=== PATIENT | male | born 1990 | race African-American/Black ===

== ENCOUNTER 2021-07-31 01:50 | Inpatient (IN) | payer OTHER ==
[2021-07-31] MEDS ORDERED: KETOROLAC 15 MG/ML 1 ML VIAL IVP STA (02:29)
[2021-07-31] MEDS ORDERED: DEXAMETHASONE SOD PHOSPHATE 10 MG/ML 1 ML VIAL IV STA (02:29)
[2021-07-31] MEDS ORDERED: ACETAMINOPHEN TAB 500 MG TAB PO STA (02:29)
[2021-07-31] MEDS ORDERED: SODIUM CHLORIDE 0.9% 1,000 ML IV STA ×2 (02:29)
[2021-07-31] MEDS ORDERED: ALBUTEROL HFA INHALER INHALATION STA (02:29)
--- NOTE | 2021-07-31 02:29 | ED ---
Recheck HPI - General Chief Complaint: Upper Respiratory Infection Stated Complaint: COVID +, SOB Time Seen by Provider: 07/31/21 02:24 Source: patient, RN notes reviewed, old records reviewed Mode of arrival: wheelchair Limitations: no limitations - History of Present Illness Initial Comments: This is a 31-year-old male for evaluation. Patient resents today for evaluation regarding coronavirus. Patient has known coronavirus currently. Patient was diagnosed with coronavirus as of recent as well as his . Patient is presenting for antibody treatment. Patient does admit to some significant weakness but denies any real shortness of breath or chest pain. Patient does have sick contacts with coronavirus. -: days(s) Returns Today for: persistent/worsening pain related to initial visit, other (worsening SOB) Symptoms Since Prior Visit: no new symptoms (Severe shortness of breath), worsening pain, fever Associated Symptoms: fever, chills, shortness of breath, malaise Treatments Prior to Arrival: other (Patient not doing any treatments) - Related Data Home Medications Medication Instructions Recorded Confirmed Ascorbic Acid [Vitamin C] 1,000 mg PO DAILY 07/31/21 07/31/21 Aspirin EC [Ecotrin] 325 mg PO DAILY 07/31/21 07/31/21 Cholecalciferol (Vitamin D3) 75 mcg PO DAILY 07/31/21 07/31/21 [Vitamin D3 (3000 Iu)] Hydroxychloroquine Sulfate 200 mg PO DIRECTED 07/31/21 07/31/21 [Plaquenil] Ibuprofen [Motrin Ib] 400 mg PO Q8H PRN 07/31/21 07/31/21 Naproxen Sodium [Aleve] 220 mg PO Q12HR PRN 07/31/21 07/31/21 Zinc 50 mg PO DAILY 07/31/21 07/31/21 Allergies Allergy/AdvReac Type Severity Reaction Status Date / Time No Known Allergies Allergy Verified 07/31/21 09:16 Review of Systems ROS Statement: Those systems with pertinent positive or pertinent negative responses have been documented in the HPI. ROS Other: All systems not noted in ROS Statement are negative. Past Medical History Past Medical History: No Reported History History of Any Multi-Drug Resistant Organisms: None Reported Past Surgical History: No Surgical Hx Reported Past Psychological History: No Psychological Hx Reported Smoking Status: Never smoker Past Alcohol Use History: None Reported Past Drug Use History: None Reported - Past Family History Mother Family Medical History: Hypertension Father Family Medical History: Hypertension General Exam Limitations: no limitations General appearance: alert, in no apparent distress, anxious Head exam: Present: atraumatic, normocephalic, normal inspection Eye exam: Present: normal appearance, PERRL, EOMI. Absent: scleral icterus, c onjunctival injection, periorbital swelling ENT exam: Present: normal exam, mucous membranes moist Neck exam: Present: normal inspection. Absent: tenderness, meningismus, lymphadenopathy Respiratory exam: Present: normal lung sounds bilaterally, respiratory distress, wheezes, accessory muscle use, decreased breath sounds, prolonged expiratory. Absent: rales, rhonchi, stridor Cardiovascular Exam: Present: normal rhythm, tachycardia, normal heart sounds. Absent: systolic murmur, diastolic murmur, rubs, gallop, clicks GI/Abdominal exam: Present: soft, normal bowel sounds. Absent: distended, tenderness, guarding, rebound, rigid Extremities exam: Present: normal inspection, full ROM, normal capillary refill. Absent: tenderness, pedal edema, joint swelling, calf tenderness Back exam: Present: normal inspection Neurological exam: Present: alert, oriented X3, CN II-XII intact Psychiatric exam: Present: normal affect, normal mood Skin exam: Present: warm, dry, intact, normal color. Absent: rash Course Vital Signs 07/31/21 07/31/21 07/31/21 02:04 04:19 04:30 Temperature 99.1 F Pulse Rate 109 H Respiratory 20 Rate Blood Pressure 159/92 O2 Sat by Pulse 84 L 89 L 95 Oximetry 07/31/21 07/31/21 07/31/21 07:00 08:11 10:10 Temperature 98.0 F 97.6 F Pulse Rate 92 91 Respiratory 28 H 23 20 Rate Blood Pressure 150/113 143/105 O2 Sat by Pulse 95 98 Oximetry 07/31/21 07/31/21 07/31/21 12:22 14:00 15:37 Temperature 97.9 F 97.7 F Pulse Rate 97 97 98 Respiratory 22 23 18 Rate Blood Pressure 149/102 154/103 158/98 O2 Sat by Pulse 98 98 Oximetry - Reevaluation(s) Reevaluation #1: Medical record is reviewed Patient is in no significant respiratory distress despite low oxygen levels Patient informed results and questions are answered Medical Decision Making - Medical Decision Making 31 male to the emergency department for evaluation, patient has positive coronavirus. Patient will be admitted for hypoxia with coronavirus. - Lab Data Result diagrams: 08/26/21 04:42 08/26/21 04:42 Lab Results 07/31/21 07/31/21 07/31/21 Range/Units 02:49 02:49 02:49 WBC 6.9 (3.8-10.6) k/uL RBC 5.21 (4.30-5.90) m/uL Hgb 13.9 (13.0-17.5) gm/dL Hct 42.3 (39.0-53.0) % MCV 81.2 (80.0-100.0) fL MCH 26.7 (25.0-35.0) pg MCHC 32.9 (31.0-37.0) g/dL RDW 13.5 (11.5-15.5) % Plt Count 248 (150-450) k/uL MPV 9.9 Neutrophils % 81 % Lymphocytes % 15 % Monocytes % 2 % Eosinophils % 0 % Basophils % 0 % Neutrophils # 5.6 (1.3-7.7) k/uL Lymphocytes # 1.0 (1.0-4.8) k/uL Monocytes # 0.1 (0-1.0) k/uL Eosinophils # 0.0 (0-0.7) k/uL Basophils # 0.0 (0-0.2) k/uL PT 10.4 (9.0-12.0) sec INR 1.0 (<1.2) APTT 28.6 (22.0-30.0) sec Sodium 130 L (137-145) mmol/L Potassium 3.8 (3.5-5.1) mmol/L Chloride 95 L (98-107) mmol/L Carbon Dioxide 24 (22-30) mmol/L Anion Gap 11 mmol/L BUN 20 (9-20) mg/dL Creatinine 1.15 (0.66-1.25) mg/dL Est GFR (CKD-EPI)AfAm >90 (>60 ml/min/1.73 sqM) Est GFR (CKD-EPI)NonAf 86 (>60 ml/min/1.73 sqM) Glucose 103 H (74-99) mg/dL Plasma Lactic Acid Tonio (0.7-2.0) mmol/L Calcium 8.8 (8.4-10.2) mg/dL Magnesium 2.0 (1.6-2.3) mg/dL Total Bilirubin 1.0 (0.2-1.3) mg/dL AST 106 H (17-59) U/L ALT 106 H (4-49) U/L Alkaline Phosphatase 80 (38-126) U/L Lactate Dehydrogenase 2600 H (313-618) U/L C-Reactive Protein 20.3 H (<1.0) mg/dL Total Protein 6.7 (6.3-8.2) g/dL Albumin 3.9 (3.5-5.0) g/dL Procalcitonin (0.02-0.09) ng/mL 07/31/21 07/31/21 Range/Units 02:49 02:49 WBC (3.8-10.6) k/uL RBC (4.30-5.90) m/uL Hgb (13.0-17.5) gm/dL Hct (39.0-53.0) % MCV (80.0-100.0) fL MCH (25.0-35.0) pg MCHC (31.0-37.0) g/dL RDW (11.5-15.5) % Plt Count (150-450) k/uL MPV Neutrophils % % Lymphocytes % % Monocytes % % Eosinophils % % Basophils % % Neutrophils # (1.3-7.7) k/uL Lymphocytes # (1.0-4.8) k/uL Monocytes # (0-1.0) k/uL Eosinophils # (0-0.7) k/uL Basophils # (0-0.2) k/uL PT (9.0-12.0) sec INR (<1.2) APTT (22.0-30.0) sec Sodium (137-145) mmol/L Potassium (3.5-5.1) mmol/L Chloride (98-107) mmol/L Carbon Dioxide (22-30) mmol/L Anion Gap mmol/L BUN (9-20) mg/dL Creatinine (0.66-1.25) mg/dL Est GFR (CKD-EPI)AfAm (>60 ml/min/1.73 sqM) Est GFR (CKD-EPI)NonAf (>60 ml/min/1.73 sqM) Glucose (74-99) mg/dL Plasma Lactic Acid Tonio 0.8 (0.7-2.0) mmol/L Calcium (8.4-10.2) mg/dL Magnesium (1.6-2.3) mg/dL Total Bilirubin (0.2-1.3) mg/dL AST (17-59) U/L ALT (4-49) U/L Alkaline Phosphatase (38-126) U/L Lactate Dehydrogenase (313-618) U/L C-Reactive Protein (<1.0) mg/dL Total Protein (6.3-8.2) g/dL Albumin (3.5-5.0) g/dL Procalcitonin 0.39 H (0.02-0.09) ng/mL - EKG Data -: EKG Interpreted by Me (EKG is sinus tachycardia 104 [place] 152 QRS 90 QTC 460) - Radiology Data Radiology results: report reviewed (Chest x-ray does show evidence of coronavirus pneumonia), image reviewed Critical Care Time Critical Care Time: Yes Total Critical Care Time: 31 Disposition Clinical Impression: Coronavirus infection, Pneumonia due to COVID-19 virus, Hypoxia, BMI 45.0-49.9, adult Disposition: ADMITTED IP TO THIS HOSP Condition: Serious Is patient prescribed a controlled substance at d/c from ED?: No
--- NOTE | 2021-07-31 03:01 | XR ---
EXAMINATION TYPE: XR chest 1V portable DATE OF EXAM: 07/31/2021 COMPARISON: NONE HISTORY: Pneumonia TECHNIQUE: Single view FINDINGS: There is patchy bilateral pulmonary airspace infiltrates. Heart appears enlarged. There is no pleural effusion. Bony thorax is intact. IMPRESSION: Patchy bilateral airspace pneumonia.
[2021-07-31 03:18] LABS: Basophils % (A) 0 %; Eosinophils % (A) 0 %; HCT 42.3 % (39.0-53.0); HGB 13.9 gm/dL (13.0-17.5); Lymphocytes % (A) 15 %; MCH 26.7 pg (25.0-35.0); MCHC 32.9 g/dL (31.0-37.0); MCV 81.2 fL (80.0-100.0); Mean Platelet Volume 9.9; Monocytes # (A) 0.1 k/uL (0-1.0); Monocytes % (A) 2 %; Neutrophils # (A) 5.6 k/uL (1.3-7.7); Neutrophils % (A) 81 %; Platelet Count 248 k/uL (150-450); RBC 5.21 m/uL (4.30-5.90); RDW 13.5 % (11.5-15.5); WBC 6.9 k/uL (3.8-10.6)
[2021-07-31 03:24] LABS: Partial Thromboplastin Time 28.6 sec (22.0-30.0); Prothrombin Time 10.4 sec (9.0-12.0)
[2021-07-31 03:26] LABS: ALT 106 U/L (4-49); AST 106 U/L (17-59); African American GFR (CKD) >90 (>60 ml/min/1.73 sqM); Albumin 3.9 g/dL (3.5-5.0); Alkaline Phosphatase 80 U/L (38-126); Anion Gap 11 mmol/L; Blood Urea Nitrogen 20 mg/dL (9-20); Calcium 8.8 mg/dL (8.4-10.2); Carbon Dioxide 24 mmol/L (22-30); Chloride 95 mmol/L (98-107); Glucose 103 mg/dL (74-99); Non-African American GFR(CKD) 86 (>60 ml/min/1.73 sqM); Potassium 3.8 mmol/L (3.5-5.1); Sodium 130 mmol/L (137-145); Total Protein 6.7 g/dL (6.3-8.2)
[2021-07-31 03:51] LABS: C Reactive Protein 20.3 mg/dL (<1.0); LDH 2600 U/L (313-618)
[2021-07-31] MEDS ORDERED: PNEUMONIA PROTOCOL UTILIZED 1 EACH MISC PO PRN (04:17)
[2021-07-31] MEDS: ENOXAPARIN 40 MG/0.4 ML SYRINGE SQ SCH (08:19)
--- NOTE | 2021-07-31 09:09 | P.HPIM ---
History of Present Illness This is a pleasant 31 years old -[place] man with no significant past medical history presents with dyspnea which started yesterday associated with fever and coughing. Patient tested positive for covid earlier on Thursday after he felt with fever and cough on Thursday but at that time he was not dyspneic. He denies chest pain or abdominal pain but he has diarrhea on and off. No vomiting. He is saturating 89% on 6 L oxygen via nasal cannula, afebrile. Tachypneic with a breathing rate at 23. CBC, is unremarkable. INR is normal at 1.0. Sodium is 1:30, creatinine normal at 1.1, glucose 103. AST is mildly elevated 106 and ALT mildly elevated 106. Elevated lactate dehydrogenase 2600 and C-reactive protein 20.3. Cholelithiasis positive EKG shows sinus tachycardia and [address]-T changes Chest x-ray showing bilateral infiltrates Review of Systems CONSTITUTIONAL: No fever, no malaise, no fatigue. HEENT: No recent visual problems or hearing problems. Denied any sore throat. CARDIOVASCULAR: No orthopnea, PND, no palpitations, no syncope. PULMONARY: No chest wall tenderness, no hemoptysis. GASTROINTESTINAL: No diarrhea, no nausea, no vomiting, no abdominal pain. Normoactive bowel sounds. NEUROLOGICAL: No headaches, no weakness, no numbness. HEMATOLOGICAL: Denies any bleeding or petechiae. GENITOURINARY: Denies any burning micturition, frequency, or urgency. MUSCULOSKELETAL/RHEUMATOLOGICAL: Denies any joint pain, swelling, or any muscle pain. ENDOCRINE: Denies any polyuria or polydipsia. Past Medical History Past Medical History: No Reported History History of Any Multi-Drug Resistant Organisms: None Reported Past Surgical History: No Surgical Hx Reported Past Psychological History: No Psychological Hx Reported Smoking Status: Never smoker Past Alcohol Use History: None Reported Past Drug Use History: None Reported Medications and Allergies Allergies Allergy/AdvReac Type Severity Reaction Status Date / Time No Known Allergies Allergy Verified 07/31/21 02:10 Physical Exam Vitals: Vital Signs Temp Pulse Resp BP Pulse Ox 07/31/21 08:11 97.6 F 91 23 143/105 98 07/31/21 07:00 98.0 F 92 28 H 150/113 95 07/31/21 04:30 95 07/31/21 04:19 89 L 07/31/21 02:04 99.1 F 109 H 20 159/92 84 L Intake and Output 07/30/21 07/31/21 07/31/21 22:59 06:59 14:59 Other: Weight 131.542 kg GENERAL: The patient is alert and oriented x3, not in any acute distress. Well developed, well nourished. HEENT: Pupils are round and equally reacting to light. EOMI. No scleral icterus. No conjunctival pallor. Normocephalic, atraumatic. No pharyngeal erythema. No thyromegaly. CARDIOVASCULAR: S1 and S2 present. No murmurs, rubs, or gallops. -PULMONARY: Chest is clear to auscultation, no wheezing. Bilateral crepitation mild diabetic ABDOMEN: Soft, nontender, nondistended, normoactive bowel sounds. No palpable organomegaly. MUSCULOSKELETAL: No joint swelling or deformity. EXTREMITIES: No cyanosis, clubbing, or pedal edema. NEUROLOGICAL: Gross neurological examination did not reveal any focal deficits. SKIN: No rashes. No petechiae Results CBC & Chem 7: 07/31/21 02:49 07/31/21 02:49 Labs: Abnormal Lab Results - Last 24 Hours (Table) 07/31/21 Range/Units 02:49 Sodium 130 L (137-145) mmol/L Chloride 95 L (98-107) mmol/L Glucose 103 H (74-99) mg/dL AST 106 H (17-59) U/L ALT 106 H (4-49) U/L Lactate Dehydrogenase 2600 H (313-618) U/L C-Reactive Protein 20.3 H (<1.0) mg/dL Assessment and Plan Assessment: Acute bilateral Covid pneumonia Acute hypoxic respiratory failure Elevated inflammatory markers Obesity with BMI of 49.8 Plan: This is a pleasant 31 years old male who presents with bilateral Covid pneumonia and hypoxia. Continue with oxygen as needed Continue With dexamethasone and Lovenox. Continue with vitamin C, vitamin D and zinc We will retest Sonja give from the severe since his symptoms started this week and he was started having dyspnea when day earlier. Also his liver enzymes and only mildly elevated and creatinine is normal undergoing to monitor his liver fu nction tests and creatinine Pulmonary consult Labs and medication were reviewed.. Continue same treatment. Continue with symptomatic treatment. Resume home medication. Monitor lytes and vitals. DVT and GI prophylaxis. Further recommendations depends on the clinical course of the patient DVT prophylaxis: Subcutaneous Lovenox GI Prophylaxis: Pepcid Prognosis is guarded
[2021-07-31] MEDS ORDERED: REMDESIVIR 200 MG in SODIUM CHLORIDE 0.9% 250 ML IVPB ONE (10:00)
--- NOTE | 2021-07-31 11:50 | P.CNPUL ---
History of Present Illness Consult date: 07/31/21 Requesting physician: Esa Villaseñor Reason for consult: dyspnea, hypoxemia, abnormal CXR/CT Chief complaint: Shortness of breath, chest tightness History of present illness: This is a very pleasant 31-year-old -[place] gentleman with no significant past medical history. He does have obesity with a BMI of 50. He developed symptoms of shortness of breath chest tightness and nonproductive cough back on July 22. He tested positive for COVID-19 in the outpatient setting. His symptoms had progressed. Of note, he had taken a few doses of hydroxychloroquine and that a friend had available. His is positive for COVID-19 as well. He is unvaccinated. He presented here to the emergency room at approximately 2:00 this morning with worsening shortness of breath chest tightness and wheezing. He was having issues with fever and chills. No nausea vomiting or diarrhea. Chest x-ray shows bilateral patchy infiltrates. His initial oxygen saturation was 84% and he was placed on 6 L high flow nasal cannula. He was having ongoing issues with hypoxemia and is now on 15 L non rebreather mask, current O2 saturation 98%. He is afebrile. White count 6.9. Hemoglobin 13.9. Lymphocytes 1.0. Sodium 130. Potassium 3.8. Bicarb 24. Creatinine 1.15. AST 106. ALT 106. LDH 2600. C-reactive protein 20.3. He is seen today in the emergency room. He is awake and alert in no acute distress. He is dyspneic with conversation. Dyspneic with minimal exertion. He's been initiated on Decadron 6 mg IV daily, Lovenox 40 mg subcutaneous daily, vitamins C, D, zinc. He is outside the window and his oxygen requirements are too high for Remdesivir. Review of Systems REVIEW OF SYSTEMS: CONSTITUTIONAL: Denies any recent significant weight loss or weight gain. EYES: Denies change in vision. EARS, NOSE, MOUTH, THROAT: Denies headaches, denies sore throat. CARDIOVASCULAR: Denies chest pain, palpitations or syncopal episodes. RESPIRATORY: Positive for shortness of breath, as tightness, cough, congestion no hemoptysis. GASTROINTESTINAL: Decreased appetite, denies abdominal pain GENITOURINARY: Denies hematuria, denies infections. MUSKULOSKELETAL: Denies pain, denies swelling. INTEGUMENTARY: Denies rash, denies eczema. NEUROLOGICAL: Denies recent memory loss, no recent seizure activity. PSYCHIATRIC: Denies anxiety, denies depression. HEMATOLOGIC/LYMPHATIC: Denies anemia, denies enlarged lymph nodes. Past Medical History Past Medical History: No Reported History History of Any Multi-Drug Resistant Organisms: None Reported Past Surgical History: No Surgical Hx Reported Past Psychological History: No Psychological Hx Reported Smoking Status: Never smoker Past Alcohol Use History: None Reported Past Drug Use History: None Reported Medications and Allergies Home Medications Medication Instructions Recorded Confirmed Type Ascorbic Acid [Vitamin C] 1,000 mg PO DAILY 07/31/21 07/31/21 History Aspirin EC [Ecotrin] 325 mg PO DAILY 07/31/21 07/31/21 History Cholecalciferol (Vitamin D3) 75 mcg PO DAILY 07/31/21 07/31/21 History [Vitamin D3 (3000 Iu)] Hydroxychloroquine Sulfate 200 mg PO DIRECTED 07/31/21 07/31/21 History [Plaquenil] Ibuprofen [Motrin Ib] 400 mg PO Q8H PRN 07/31/21 07/31/21 History Naproxen Sodium [Aleve] 220 mg PO Q12HR PRN 07/31/21 07/31/21 History Zinc 50 mg PO DAILY 07/31/21 07/31/21 History Allergies Allergy/AdvReac Type Severity Reaction Status Date / Time No Known Allergies Allergy Verified 07/31/21 09:16 Physical Exam Vitals: Vital Signs Temp Pulse Resp BP Pulse Ox 07/31/21 10:10 20 07/31/21 08:11 97.6 F 91 23 143/105 98 07/31/21 07:00 98.0 F 92 28 H 150/113 95 07/31/21 04:30 95 07/31/21 04:19 89 L 07/31/21 02:04 99.1 F 109 H 20 159/92 84 L Intake and Output 07/30/21 07/31/21 07/31/21 22:59 06:59 14:59 Other: Weight 131.542 kg GENERAL EXAM: Alert, very pleasant 31-year-old -[place] male, obese, on 15 L nonrebreather mask, fairly comfortable in no apparent distress. HEAD: Normocephalic. EYES: Normal reaction of pupils, equal size. NOSE: Clear with pink turbinates. THROAT: No erythema or exudates. NECK: No masses, no JVD. CHEST: No chest wall deformity. LUNGS: Equal air entry with coarse crackles in the bilateral bases. CVS: S1 and S2 normal with no audible murmur, regular rhythm. ABDOMEN: No hepatosplenomegaly, normal bowel sounds, no guarding or rigidity. SPINE: No scoliosis or deformity SKIN: No rashes CENTRAL NERVOUS SYSTEM: No focal deficits, tone is normal in all 4 extremities. EXTREMITIES: There is no peripheral edema. No clubbing, no cyanosis. Peripheral pulses are intact. Results - Laboratory Findings CBC and BMP: 07/31/21 02:49 07/31/21 02:49 PT/INR, D-dimer PT 10.4 sec (9.0-12.0) 07/31/21 02:49 INR 1.0 (<1.2) 07/31/21 02:49 Abnormal lab findings: Abnormal Labs 07/31/21 07/31/21 02:49 09:50 Sodium 130 L Chloride 95 L Glucose 103 H AST 106 H ALT 106 H Lactate Dehydrogenase 2600 H C-Reactive Protein 20.3 H Coronavirus (PCR) Detected A - Diagnostic Findings Chest x-ray: image reviewed Assessment and Plan Assessment: 1 Acute hypoxemic respiratory failure secondary to acute COVID-19 pneumonia. Onset of symptoms 8 days ago. He is unvaccinated. He did take a few doses of a friend's hydroxychloroquine. Currently requiring nonrebreather mask. He is outside the window and too high of oxygen requirements for Remdesivir. We will initiate Baricitinib, Lovenox, Decadron, vitamin supplements. 2 Elevated inflammatory markers secondary to above 3 Mild transaminitis secondary to above 4 Obesity with a BMI of 50 Plan: The patient was seen and evaluated by Dr. Ojeda Chest x-ray and labs reviewed D-dimer pending. If elevated may need CTA and/or Dopplers of the lower extremity Pro calcitonin pending May qualify for Baricitinib Continue Lovenox, Decadron, vitamin supplements Titrate the FiO2 as tolerated Prone as possible while in bed Follow-up chest x-ray and labs in the a.m. Prognosis is guarded at this point We will continue to follow and make further recommendations based on his clinical status I, the cosigning physician, performed a history & physical examination of the patient. Lungs sounds with coarse crackles in the bilateral bases. Maintaining O2 saturations in the 90s on a nonrebreather mask. I discussed the assessment and plan of care with my nurse practitioner, Anila Mathis. I attest to the above consultation as dictated by her. Time with Patient: Greater than 30
[2021-07-31] MEDS: DEXAMETHASONE SOD PHOSPHATE 10 MG/ML 1 ML VIAL IV SCH (12:18)
[2021-07-31] MEDS: FAMOTIDINE 20 MG TAB PO SCH (12:18)
[2021-07-31] MEDS: CHOLECALCIFEROL 25 MCG (1000 IU) TABLET PO SCH (12:18)
[2021-07-31] MEDS: ZINC SULFATE 220 MG CAP PO SCH (12:18)
[2021-07-31] MEDS: ASCORBIC ACID 500 MG TAB PO SCH (12:18)
[2021-07-31] MEDS: SODIUM CHLORIDE 0.9% 1,000 ML IV SCH ×2 (12:19→16:37)
[2021-07-31] MEDS: BARICITINIB 2 MG TABLET PO SCH (12:29)
[2021-07-31] MEDS: amLODIPine 5 MG TAB PO SCH (17:42)
[2021-07-31] MEDS: ALBUTEROL HFA INHALER INHALATION PRN (19:51)
[2021-07-31] MEDS ORDERED: hydrALAZINE HCL 25 MG TAB PO STA (22:00)
[2021-07-31] MEDS: ALPRAZolam 0.5 MG TAB PO PRN (23:48)
[2021-08-01] MEDS: SODIUM CHLORIDE 0.9% 1,000 ML IV SCH ×2 (06:47→07:55)
[2021-08-01] MEDS: DEXAMETHASONE SOD PHOSPHATE 10 MG/ML 1 ML VIAL IV SCH (07:56)
[2021-08-01] MEDS: FAMOTIDINE 20 MG TAB PO SCH (07:56)
[2021-08-01] MEDS: amLODIPine 5 MG TAB PO SCH (07:56)
[2021-08-01] MEDS: ENOXAPARIN 40 MG/0.4 ML SYRINGE SQ SCH (07:56)
[2021-08-01] MEDS: BARICITINIB 2 MG TABLET PO SCH (07:56)
[2021-08-01] MEDS: ZINC SULFATE 220 MG CAP PO SCH (07:56)
[2021-08-01] MEDS: CHOLECALCIFEROL 25 MCG (1000 IU) TABLET PO SCH (07:57)
[2021-08-01] MEDS: ASCORBIC ACID 500 MG TAB PO SCH (07:57)
[2021-08-01 08:13] LABS: ALT 76 U/L (4-49); AST 62 U/L (17-59); African American GFR (CKD) >90 (>60 ml/min/1.73 sqM); Albumin 3.5 g/dL (3.5-5.0); Albumin/Globulin Ratio 1.3; Alkaline Phosphatase 70 U/L (38-126); Anion Gap 8 mmol/L; Blood Urea Nitrogen 32 mg/dL (9-20); Calcium 8.9 mg/dL (8.4-10.2); Carbon Dioxide 26 mmol/L (22-30); Chloride 102 mmol/L (98-107); Globulin 2.8 g/dL; Glucose 105 mg/dL (74-99); Non-African American GFR(CKD) 80 (>60 ml/min/1.73 sqM); Potassium 4.5 mmol/L (3.5-5.1); Sodium 136 mmol/L (137-145); Total Bilirubin 0.7 mg/dL (0.2-1.3); Total Protein 6.3 g/dL (6.3-8.2)
[2021-08-01 08:18] LABS: LDH 2437 U/L (313-618)
[2021-08-01 08:46] LABS: C Reactive Protein 16.7 mg/dL (<1.0)
--- NOTE | 2021-08-01 09:07 | XR ---
EXAMINATION TYPE: XR chest 1V DATE OF EXAM: 08/01/2021 COMPARISON: 07/31/2021 HISTORY: 31 year-old male shortness of breath TECHNIQUE: Single frontal view of the chest is obtained. FINDINGS: Markedly diminished lung volumes. Heart size likely accentuated due to the low lung volumes. Diffuse interstitial density and patchy bibasilar airspace opacity. Aeration shows improvement from prior exa m. IMPRESSION: Limitations due to severe hypoventilatory changes. There does seem to be some improvement in aeration but with continued diffuse interstitial opacity and patchy bibasilar airspace disease. Improving dennis ateral pneumonia versus improving pulmonary edema are considerations.
[2021-08-01 11:14] LABS: Basophils # (A) 0.02 X 10*3/uL (0.00-0.10); Basophils % (A) 0.2 %; Eosinophils # (A) 0 X 10*3/uL (0.04-0.35); Eosinophils % (A) 0 %; HCT 41.7 % (39.6-50.0); Lymphocytes # (A) 1.33 X 10*3/uL (0.90-5.00); Lymphocytes % (A) 12.3 %; MCH 25.9 pg (27.0-32.0); MCHC 31.2 g/dL (32.0-37.0); MCV 83.2 fL (80.0-97.0); Mean Platelet Volume 11.9 fL (9.5-12.2); Monocytes # (A) 0.44 X 10*3/uL (0.20-1.00); Monocytes % (A) 4.1 %; Neutrophils % (A) 80.4 %; Platelet Count 331 X 10*3/uL (140-440); RBC 5.01 X 10*6/uL (4.40-5.60); RDW 13.6 % (11.5-14.5); WBC 10.81 X 10*3/uL (4.50-10.00)
--- NOTE | 2021-08-01 11:59 | P.PN ---
Subjective This is a pleasant 31 years old -[place] man with no significant past medical history presents with dyspnea which started yesterday associated with fever and coughing. Patient tested positive for covid earlier on Thursday after he felt with fever and cough on Thursday but at that time he was not dyspneic. He denies chest pain or abdominal pain but he has diarrhea on and off. No vomiting. He is saturating 89% on 6 L oxygen via nasal cannula, afebrile. Tachypneic with a breathing rate at 23. CBC, is unremarkable. INR is normal at 1.0. Sodium is 1:30, creatinine normal at 1.1, glucose 103. AST is mildly elevated 106 and ALT mildly elevated 106. Elevated lactate dehydrogenase 2600 and C-reactive protein 20.3. Cholelithiasis positive EKG shows sinus tachycardia and [address]-T changes Chest x-ray showing bilateral infiltrates 08/01/2021 Patient sitting at bedside using 50 L of oxygen via nonrebreather. Reports slight improvement in his breathing and his chest x-ray showing somewhat improvement in that area should on both sides. He has low-grade fever today at 200. Blood pressure is stable. D-dimer is 1.87. BMP is unremarkable, liver enzymes slightly trending down. LDH slightly down at 2437 and slightly decreased and C-reactive protein 16.7. CBC and pro-calcitonin are pending Sputum and blood culture are still pending He remains on multiple vitamins, Baricitinib, dexamethasone and normal saline at 75 mL/h. Also he is on Lovenox. Norvasc is added for blood pressure control also we will add metoprolol Objective - Vital Signs Vital signs: Vital Signs Temp 100 F H 08/01/21 09:34 Pulse 105 H 08/01/21 09:34 Resp 18 08/01/21 09:34 BP 146/88 08/01/21 09:34 Pulse Ox 88 L 08/01/21 09:34 Intake & Output 07/31/21 08/01/21 08/01/21 18:59 06:59 18:59 Intake Total 800 600 Balance 800 600 Weight 131.542 kg Intake: Intake, IV Titration 800 600 Amount Sodium Chloride 0.9% 1, 800 600 000 ml @ 75 mls/hr IV . [id number] [facility] Rx#:[id number] Other: Voiding Method Urinal # Voids 3 - Exam GENERAL: The patient is alert and oriented x3, not in any acute distress. Well developed, well nourished. HEENT: Pupils are round and equally reacting to light. EOMI. No scleral icterus. No conjunctival pallor. Normocephalic, atraumatic. No pharyngeal erythema. No thyromegaly. CARDIOVASCULAR: S1 and S2 present. No murmurs, rubs, or gallops. -PULMONARY: Chest is clear to auscultation, no wheezing bilateral crepitation, t achypnea ABDOMEN: Soft, nontender, nondistended, normoactive bowel sounds. No palpable organomegaly. MUSCULOSKELETAL: No joint swelling or deformity. EXTREMITIES: No cyanosis, clubbing, or pedal edema. NEUROLOGICAL: Gross neurological examination did not reveal any focal deficits. SKIN: No rashes. No petechiae - Labs CBC & Chem 7: 07/31/21 02:49 08/01/21 07:19 Labs: Abnormal Lab Results - Last 24 Hours (Table) 08/01/21 08/01/21 Range/Units 07:19 07:19 D-Dimer 1.87 H (<0.60) mg/L FEU Sodium 136 L (137-145) mmol/L BUN 32 H (9-20) mg/dL Glucose 105 H (74-99) mg/dL AST 62 H (17-59) U/L ALT 76 H (4-49) U/L Lactate Dehydrogenase 2437 H (313-618) U/L C-Reactive Protein 16.7 H (<1.0) mg/dL Microbiology - Last 24 Hours (Table) 07/31/21 19:59 Sputum Culture - Preliminary Sputum 07/31/21 07:01 Gram Stain - Preliminary Sputum Sputum Culture - Preliminary 07/31/21 02:45 Blood Culture - Preliminary Blood No Growth after 24 hours 07/31/21 03:00 Blood Culture - Preliminary Blood No Growth after 24 hours Assessment and Plan Assessment: Acute bilateral Covid pneumonia Acute hypoxic respiratory failure Elevated inflammatory markers Obesity with BMI of 49.8 Plan: This is a pleasant 31 years old male who presents with bilateral Covid pneumonia and hypoxia. Continue with oxygen as needed Continue With dexamethasone and Lovenox. Continue with vitamin C, vitamin D and zinc c/w baricitinib Pulmonary consult Labs and medication were reviewed.. Continue same treatment. Continue with symptomatic treatment. Resume home medication. Monitor lytes and vitals. DVT and GI prophylaxis. Further recommendations depends on the clinical course of the patient DVT prophylaxis: Subcutaneous Lovenox GI Prophylaxis: Pepcid Prognosis is guarded
[2021-08-01] MEDS: METOPROLOL TARTRATE 25 MG TAB PO SCH ×2 (12:01→19:48)
[2021-08-01] MEDS: ACETAMINOPHEN TAB 325 MG TAB PO PRN ×2 (12:01→20:15)
[2021-08-01] MEDS: ALBUTEROL HFA INHALER INHALATION PRN (15:11)
--- NOTE | 2021-08-01 15:49 | P.PN ---
Subjective Progress Note Date: 08/01/21 31-year-old -[place] male patient with COVID-19 related pneumonia. The patient came in he was quite hypoxic. He was placed on high flow oxygen at 15 L along with 100% nonrebreather facemask. Earlier this afternoon, the patient's condition decompensated. He became quite hypoxic. He is currently on BiPAP at a pressure of 14/7 with an FiO2 of 100%. He was able to bring his pulse ox of 97%. His respirations 22 L and he continues to be tachypneic at the rate of 35. His tidal volumes related is above 700. Chest x-ray shows a lordotic view, there is still bilateral pulmonary infiltrates. The inflammatory markers include an LDH level of 2437, CRP level of 16.7, pro-calcitonin level of 0.5, d- dimer level of 1.87. The patient remains on Decadron 6 mg IV every 24 hours, the patient remains on Baricitinib that was started yesterday and he is also on Lovenox 40 mg subcu on a daily basis and addition to vitamin C, vitamin D including. He is sitting up on a recliner he is able to tolerate a full face BiPAP mask. No significant anxiety. He is able to communicate. Objective - Vital Signs Vital signs: Vital Signs Temp 98.7 F 08/01/21 14:30 Pulse 90 08/01/21 14:30 Resp 18 08/01/21 14:30 BP 135/78 08/01/21 14:30 Pulse Ox 88 L 08/01/21 14:30 Intake & Output 07/31/21 08/01/21 08/01/21 18:59 06:59 18:59 Intake Total 800 600 Balance 800 600 Weight 131.542 kg Intake: Intake, IV Titration 800 600 Amount Sodium Chloride 0.9% 1, 800 600 000 ml @ 75 mls/hr IV . [id number] [facility] Rx#:[id number] Other: Voiding Method Urinal # Voids 3 - Exam The patient is breathing is labored and the patient is currently on a BiPAP at a pressure of 14/7 with an FiO2 of 100%. He is awake and alert and communicating. HEAD: Normocephalic. EYES: Normal reaction of pupils, equal size. NOSE: Clear with pink turbinates. THROAT: No erythema or exudates. NECK: No masses, no JVD. CHEST: No chest wall deformity. LUNGS: Equal air entry with coarse crackles in the bilateral bases. CVS: S1 and S2 normal with no audible murmur, regular rhythm. ABDOMEN: No hepatosplenomegaly, normal bowel sounds, no guarding or rigidity. SPINE: No scoliosis or deformity SKIN: No rashes CENTRAL NERVOUS SYSTEM: No focal deficits, tone is normal in all 4 extremities. EXTREMITIES: There is no peripheral edema. No clubbing, no cyanosis. Peripheral pulses are intact. - Labs CBC & Chem 7: 08/01/21 07:19 08/01/21 07:19 Labs: Abnormal Lab Results - Last 24 Hours (Table) 07/31/21 08/01/21 08/01/21 Range/Units 02:49 07:19 07:19 WBC 10.81 H (4.50-10.00) X 10*3/uL MCH 25.9 L (27.0-32.0) pg MCHC 31.2 L (32.0-37.0) g/dL Immature Gran # 0.32 H (0.00-0.04) X 10*3/uL Neutrophils # 8.70 H (1.80-7.70) X 10*3/uL Eosinophils # 0 L (0.04-0.35) X 10*3/uL D-Dimer (<0.60) mg/L FEU Sodium (137-145) mmol/L BUN (9-20) mg/dL Glucose (74-99) mg/dL AST (17-59) U/L ALT (4-49) U/L Lactate Dehydrogenase (313-618) U/L C-Reactive Protein (<1.0) mg/dL Procalcitonin 0.39 H 0.51 H (0.02-0.09) ng/mL 08/01/21 08/01/21 Range/Units 07:19 07:19 WBC (4.50-10.00) X 10*3/uL MCH (27.0-32.0) pg MCHC (32.0-37.0) g/dL Immature Gran # (0.00-0.04) X 10*3/uL Neutrophils # (1.80-7.70) X 10*3/uL Eosinophils # (0.04-0.35) X 10*3/uL D-Dimer 1.87 H (<0.60) mg/L FEU Sodium 136 L (137-145) mmol/L BUN 32 H (9-20) mg/dL Glucose 105 H (74-99) mg/dL AST 62 H (17-59) U/L ALT 76 H (4-49) U/L Lactate Dehydrogenase 2437 H (313-618) U/L C-Reactive Protein 16.7 H (<1.0) mg/dL Procalcitonin (0.02-0.09) ng/mL Microbiology - Last 24 Hours (Table) 07/31/21 07:01 Gram Stain - Preliminary Sputum Sputum Culture - Preliminary 07/31/21 19:59 Sputum Culture - Preliminary Sputum 07/31/21 02:45 Blood Culture - Preliminary Blood No Growth after 24 hours 07/31/21 03:00 Blood Culture - Preliminary Blood No Growth after 24 hours Assessment and Plan Plan: 1 Acute hypoxemic respiratory failure secondary to acute COVID-19 pneumonia. Onset of symptoms 8 days ago. He is unvaccinated. He did take a few doses of a friend's hydroxychloroquine. The patient initially went on a 15 L nasal cannula in addition to a nonrebreather mask. He subsequently desaturated patient is currently on a BiPAP at a pressure of 14/7 cm of water with an FiO2 of 100%. He continues to be tachypneic with elevated minute ventilation. His chest x-ray findings are unchanged. Inflammatory markers are quite elevated. Based on all this, the patient is being monitored very closely and he is currently on a combination of Decadron, Baricitinib and Lovenox. 2 Elevated inflammatory markers secondary to above 3 Mild transaminitis secondary to above 4 Obesity with a BMI of 50 Plan: Clinically, his oxygenation is worse and the patient is more short of breath, currently on BiPAP as mentioned above Chest x-ray and labs reviewed D-dimer level was nonelevated. Nevertheless the LDH is quite high. Pro calcitonin level is nonelevated. Continue the combination of Decadron, Lovenox, and Baricitinib Titrate the FiO2 as tolerated Prone as possible while in bed Follow-up chest x-ray and labs in the a.m. Prognosis is guarded at this point We will continue to follow and make further recommendations based on his clinical status Close monitoring and further ICU transfer if he decompensates. We'll try to keep him on BiPAP overnight today.
[2021-08-01] MEDS: ALPRAZolam 0.5 MG TAB PO PRN (19:48)
--- NOTE | 2021-08-01 22:17 | US ---
EXAMINATION TYPE: US venous doppler duplex LE DATE OF EXAM: 08/01/2021 3:50 PM COMPARISON: NONE CLINICAL HISTORY: elevated d-dimer. Elevated D-Dimer, Covid SIDE PERFORMED: Bilateral TECHNIQUE: The lower extremity deep venous system is examined utilizing real time linear array sonog narinder with graded compression, doppler sonography and color-flow sonography. VESSELS IMAGED: Common Femoral Vein Deep Femoral Vein Greater Saphenous Vein * Femoral Vein Popliteal Vein Small Saphenous Vein * Proximal Calf Veins (* superficial vessels) FINDINGS: Grayscale, color doppler, spectral doppler imaging performed of the deep veins of the lower extremities. There is normal flow, compressibility, vascular waveforms. IMPRESSION: Negative for DVT, bilateral lower extremities.
[2021-08-02] MEDS: SODIUM CHLORIDE 0.9% 1,000 ML IV SCH ×2 (01:14→06:03)
[2021-08-02] MEDS: ACETAMINOPHEN TAB 325 MG TAB PO PRN ×2 (01:43→22:48)
[2021-08-02] MEDS: hydrALAZINE HCL 25 MG TAB PO PRN (06:03)
[2021-08-02 07:36] LABS: Basophils # (A) 0.1 k/uL (0-0.2); Basophils % (A) 1 %; Eosinophils % (A) 0 %; HCT 39.7 % (39.0-53.0); HGB 12.1 gm/dL (13.0-17.5); Lymphocytes # (A) 1.1 k/uL (1.0-4.8); Lymphocytes % (A) 10 %; MCH 26.5 pg (25.0-35.0); MCHC 30.5 g/dL (31.0-37.0); Mean Platelet Volume 9.5; Monocytes # (A) 0.4 k/uL (0-1.0); Monocytes % (A) 4 %; Neutrophils # (A) 8.6 k/uL (1.3-7.7); Neutrophils % (A) 84 %; Platelet Count 386 k/uL (150-450); RBC 4.57 m/uL (4.30-5.90); RDW 13.5 % (11.5-15.5); WBC 10.3 k/uL (3.8-10.6)
[2021-08-02 07:50] LABS: ALT 69 U/L (4-49); AST 65 U/L (17-59); African American GFR (CKD) 88 (>60 ml/min/1.73 sqM); Albumin 3.2 g/dL (3.5-5.0); Albumin/Globulin Ratio 1.2; Alkaline Phosphatase 71 U/L (38-126); Anion Gap 5 mmol/L; Blood Urea Nitrogen 32 mg/dL (9-20); Calcium 8.7 mg/dL (8.4-10.2); Carbon Dioxide 28 mmol/L (22-30); Chloride 102 mmol/L (98-107); Globulin 2.7 g/dL; Glucose 85 mg/dL (74-99); Non-African American GFR(CKD) 76 (>60 ml/min/1.73 sqM); Potassium 5.1 mmol/L (3.5-5.1); Sodium 135 mmol/L (137-145); Total Bilirubin 0.6 mg/dL (0.2-1.3); Total Protein 5.9 g/dL (6.3-8.2)
[2021-08-02 07:53] LABS: MCV 86.8 fL (80.0-100.0)
[2021-08-02] MEDS: ENOXAPARIN 40 MG/0.4 ML SYRINGE SQ SCH (08:07)
[2021-08-02] MEDS: BARICITINIB 2 MG TABLET PO SCH (08:08)
[2021-08-02] MEDS: ZINC SULFATE 220 MG CAP PO SCH (08:08)
[2021-08-02] MEDS: DEXAMETHASONE SOD PHOSPHATE 10 MG/ML 1 ML VIAL IV SCH (08:08)
[2021-08-02] MEDS: METOPROLOL TARTRATE 25 MG TAB PO SCH ×2 (08:09→20:44)
[2021-08-02] MEDS: CHOLECALCIFEROL 25 MCG (1000 IU) TABLET PO SCH (08:09)
[2021-08-02] MEDS: ASCORBIC ACID 500 MG TAB PO SCH (08:09)
[2021-08-02] MEDS: FAMOTIDINE 20 MG TAB PO SCH (08:09)
[2021-08-02] MEDS: amLODIPine 5 MG TAB PO SCH (08:09)
--- NOTE | 2021-08-02 11:07 | P.PN ---
Subjective Progress Note Date: 08/02/21 On today's evaluation of 08/02/2021, patient is being seen for a follow-up. Earlier this morning, while the patient took himself off the BiPAP, he had significant desaturation along with that he had a coughing spells. I was about to transfer the patient to the intensive care unit. Later on he stabilized, currently is on a high flow oxygen with 15 L with an FiO2 of 90%. His much more comfortable. His pulse ox is around 87%. Is awake and alert. Following commands and answering questions. He remains on Decadron 6 mg IV every 24 hours and the patient is also on Baricitinib and Lovenox 40 mg subcu every 24 hours and he is also on a combination of vitamin C and vitamin D. He is communicating. Is awake and alert. No nausea vomiting or diarrhea. Overnight, the patient started on BiPAP at a pressure of 14/7 cm of water with an FiO2 of 90%.Meanwhile, the d-dimer from yesterday was 1.87, his rest of the inflammatory markers are still pending for now. Creatinine is at 1.26. He does have mild transaminitis with AST of 65, ALT of 69, and the patient's white cell count is at 10.3 with hemoglobin of 12.1. Objective - Vital Signs Vital signs: Vital Signs Temp 98.7 F 08/02/21 09:55 Pulse 88 08/02/21 09:55 Resp 22 08/02/21 09:55 BP 153/82 08/02/21 09:55 Pulse Ox 91 L 08/02/21 09:55 Intake & Output 08/01/21 08/02/21 08/02/21 18:59 06:59 18:59 Intake Total 600 Output Total 950 Balance 600 -950 Intake: Intake, IV Titration 600 Amount Sodium Chloride 0.9% 1, 600 000 ml @ 75 mls/hr IV . [id number] [facility] Rx#:[id number] Output: Urine 950 Other: Voiding Method Urinal Urinal - Exam The patient is breathing is labored and the patient is currently on a BiPAP at a pressure of 14/7 with an FiO2 of 90 %. He is awake and alert and communicating. The patient went on high flow oxygen at 50 L with an FiO2 of 90% and is currently off the BiPAP. We'll going to alternate the high flow along with the BiPAP. Overnight he would go on the BiPAP. HEAD: Normocephalic. EYES: Normal reaction of pupils, equal size. NOSE: Clear with pink turbinates. THROAT: No erythema or exudates. NECK: No masses, no JVD. CHEST: No chest wall deformity. LUNGS: Equal air entry with coarse crackles in the bilateral bases. CVS: S1 and S2 normal with no audible murmur, regular rhythm. ABDOMEN: No hepatosplenomegaly, normal bowel sounds, no guarding or rigidity. SPINE: No scoliosis or deformity SKIN: No rashes CENTRAL NERVOUS SYSTEM: No focal deficits, tone is normal in all 4 extremities. EXTREMITIES: There is no peripheral edema. No clubbing, no cyanosis. Peripheral pulses are intact. - Labs CBC & Chem 7: 08/02/21 06:22 08/02/21 06:22 Labs: Abnormal Lab Results - Last 24 Hours (Table) 07/31/21 08/01/21 08/01/21 Range/Units 02:49 07:19 07:19 WBC 10.81 H (4.50-10.00) X 10*3/uL Hgb (13.0-17.5) gm/dL MCH 25.9 L (27.0-32.0) pg MCHC 31.2 L (32.0-37.0) g/dL Immature Gran # 0.32 H (0.00-0.04) X 10*3/uL Neutrophils # 8.70 H (1.80-7.70) X 10*3/uL Eosinophils # 0 L (0.04-0.35) X 10*3/uL Sodium (137-145) mmol/L BUN (9-20) mg/dL Creatinine (0.66-1.25) mg/dL AST (17-59) U/L ALT (4-49) U/L Total Protein (6.3-8.2) g/dL Albumin (3.5-5.0) g/dL Procalcitonin 0.39 H 0.51 H (0.02-0.09) ng/mL 08/02/21 08/02/21 Range/Units 06:22 06:22 WBC (4.50-10.00) X 10*3/uL Hgb 12.1 L (13.0-17.5) gm/dL MCH (27.0-32.0) pg MCHC 30.5 L (32.0-37.0) g/dL Immature Gran # (0.00-0.04) X 10*3/uL Neutrophils # 8.6 H (1.80-7.70) X 10*3/uL Eosinophils # (0.04-0.35) X 10*3/uL Sodium 135 L (137-145) mmol/L BUN 32 H (9-20) mg/dL Creatinine 1.26 H (0.66-1.25) mg/dL AST 65 H (17-59) U/L ALT 69 H (4-49) U/L Total Protein 5.9 L (6.3-8.2) g/dL Albumin 3.2 L (3.5-5.0) g/dL Procalcitonin (0.02-0.09) ng/mL Microbiology - Last 24 Hours (Table) 07/31/21 02:45 Blood Culture - Preliminary Blood No Growth after 48 hours 07/31/21 03:00 Blood Culture - Preliminary Blood No Growth after 48 hours 07/31/21 07:01 Gram Stain - Preliminary Sputum Sputum Culture - Preliminary 07/31/21 19:59 Sputum Culture - Preliminary Sputum Assessment and Plan Plan: 1 Acute hypoxemic respiratory failure secondary to acute COVID-19 pneumonia. Onset of symptoms 8 days ago. He is unvaccinated. He did take a few doses of a friend's hydroxychloroquine. For now, the patient is on high flow oxygen at 50 L with an FiO2 of 90%. This is alternating with BiPAP overnight at a pre ssure of 14/7 with an FiO2 of 90. Awaiting follow-up systemic markers. This morning he is currently on 2 Elevated inflammatory markers secondary to above 3 Mild transaminitis secondary to above 4 Obesity with a BMI of 50 Plan: Clinically, his oxygenation is worse and the patient is more short of breath, currently on BiPAP, alternating with high flow oxygen at 15 L with an FiO2 of 90% Will monitor this patient on the medical floor and transferred to the intensive care unit if there is any worsening Chest x-ray to be repeated tomorrow Continue the combination of Decadron, Lovenox, and Baricitinib Titrate the FiO2 as tolerated Prone as possible while in bed Prognosis is guarded at this point We will continue to follow and make further recommendations based on his clinical status Close monitoring and further ICU transfer if he decompensates.
[2021-08-02] MEDS: ALBUTEROL HFA INHALER INHALATION PRN (17:35)
--- NOTE | 2021-08-02 18:26 | P.PN ---
Subjective Progress Note Date: 08/02/21 Principal diagnosis: COVID-19 bilateral pneumonia Acute hypoxic respiratory failure 31 years old -[place] man with no significant past medical history presents with dyspnea which started yesterday associated with fever and coughing. Patient tested positive for covid earlier on Thursday after he felt with fever and cough on Thursday but at that time he was not dyspneic. He denies chest pain or abdominal pain but he has diarrhea on and off. No vomiting. He is saturating 89% on 6 L oxygen via nasal cannula, afebrile. Tachypneic with a breathing rate at 23. CBC, is unremarkable. INR is normal at 1.0. Sodium is 1:30, creatinine normal at 1.1, glucose 103. AST is mildly elevated 106 and ALT mildly elevated 106. Elevated lactate dehydrogenase 2600 and C-reactive protein 20.3. Cholelithiasis positive EKG shows sinus tachycardia and [address]-T changes Chest x-ray showing bilateral infiltrates Objective - Vital Signs Vital signs: Vital Signs Temp 98.7 F 08/02/21 09:55 Pulse 88 08/02/21 09:55 Resp 22 08/02/21 09:55 BP 153/82 08/02/21 09:55 Pulse Ox 91 L 08/02/21 09:55 Intake & Output 08/01/21 08/02/21 08/02/21 18:59 06:59 18:59 Intake Total 600 Output Total 950 Balance 600 -950 Intake: Intake, IV Titration 600 Amount Sodium Chloride 0.9% 1, 600 000 ml @ 75 mls/hr IV . [id number] [facility] Rx#:[id number] Output: Urine 950 Other: Voiding Method Urinal Urinal - Exam GENERAL: The patient is alert and oriented x3, not in any acute distress. Well developed, well nourished. HEENT: Pupils are round and equally reacting to light. EOMI. No scleral icterus. No conjunctival pallor. Normocephalic, atraumatic. No pharyngeal erythema. No thyromegaly. CARDIOVASCULAR: S1 and S2 present. No murmurs, rubs, or gallops. -PULMONARY: Chest is clear to auscultation, no wheezing bilateral crepitation, tachypnea ABDOMEN: Soft, nontender, nondistended, normoactive bowel sounds. No palpable organomegaly. MUSCULOSKELETAL: No joint swelling or deformity. EXTREMITIES: No cyanosis, clubbing, or pedal edema. NEUROLOGICAL: Gross neurological examination did not reveal any focal deficits. SKIN: No rashes. No petechiae - Labs CBC & Chem 7: 08/02/21 06:22 08/02/21 06:22 Labs: Abnormal Lab Results - Last 24 Hours (Table) 07/31/21 08/01/21 08/01/21 Range/Units 02:49 07:19 07:19 WBC 10.81 H (4.50-10.00) X 10*3/uL Hgb (13.0-17.5) gm/dL MCH 25.9 L (27.0-32.0) pg MCHC 31.2 L (32.0-37.0) g/dL Immature Gran # 0.32 H (0.00-0.04) X 10*3/uL Neutrophils # 8.70 H (1.80-7.70) X 10*3/uL Eosinophils # 0 L (0.04-0.35) X 10*3/uL Sodium (137-145) mmol/L BUN (9-20) mg/dL Creatinine (0.66-1.25) mg/dL AST (17-59) U/L ALT (4-49) U/L Total Protein (6.3-8.2) g/dL Albumin (3.5-5.0) g/dL Procalcitonin 0.39 H 0.51 H (0.02-0.09) ng/mL 08/02/21 08/02/21 Range/Units 06:22 06:22 WBC (4.50-10.00) X 10*3/uL Hgb 12.1 L (13.0-17.5) gm/dL MCH (27.0-32.0) pg MCHC 30.5 L (32.0-37.0) g/dL Immature Gran # (0.00-0.04) X 10*3/uL Neutrophils # 8.6 H (1.80-7.70) X 10*3/uL Eosinophils # (0.04-0.35) X 10*3/uL Sodium 135 L (137-145) mmol/L BUN 32 H (9-20) mg/dL Creatinine 1.26 H (0.66-1.25) mg/dL AST 65 H (17-59) U/L ALT 69 H (4-49) U/L Total Protein 5.9 L (6.3-8.2) g/dL Albumin 3.2 L (3.5-5.0) g/dL Procalcitonin (0.02-0.09) ng/mL Microbiology - Last 24 Hours (Table) 07/31/21 02:45 Blood Culture - Preliminary Blood No Growth after 48 hours 07/31/21 03:00 Blood Culture - Preliminary Blood No Growth after 48 hours 07/31/21 07:01 Gram Stain - Preliminary Sputum Sputum Culture - Preliminary 07/31/21 19:59 Sputum Culture - Preliminary Sputum Assessment and Plan Assessment: Acute bilateral Covid pneumonia Acute hypoxic respiratory failure Elevated inflammatory markers Obesity with BMI of 49.8 Plan: This is a pleasant 31 years old male who presents with bilateral Covid pneumonia and hypoxia. Continue with oxygen as needed Continue With dexamethasone and Lovenox. Continue with vitamin C, vitamin D and zinc c/w baricitinib Pulmonary consult Labs and medication were reviewed.. Continue same treatment. Continue with symptomatic treatment. Resume home medication. Monitor lytes and vitals. DVT and GI prophylaxis. Further recommendations depends on the clinical course of the patient DVT prophylaxis: Subcutaneous Lovenox GI Prophylaxis: Pepcid Prognosis is guarded
[2021-08-02] MEDS: ALPRAZolam 0.5 MG TAB PO PRN (22:02)
[2021-08-03] MEDS: SODIUM CHLORIDE 0.9% 1,000 ML IV SCH ×2 (01:41→13:42)
[2021-08-03] MEDS: ACETAMINOPHEN TAB 325 MG TAB PO PRN ×2 (07:16→23:36)
[2021-08-03] MEDS: ALBUTEROL HFA INHALER INHALATION PRN ×2 (08:25→17:52)
[2021-08-03 08:56] LABS: HCT 39.6 % (39.0-53.0); HGB 12.1 gm/dL (13.0-17.5); MCH 26.5 pg (25.0-35.0); MCHC 30.6 g/dL (31.0-37.0); MCV 86.4 fL (80.0-100.0); Mean Platelet Volume 8.9; Platelet Count 325 k/uL (150-450); RBC 4.58 m/uL (4.30-5.90); RDW 13.6 % (11.5-15.5); WBC 9.8 k/uL (3.8-10.6)
[2021-08-03] MEDS: FAMOTIDINE 20 MG TAB PO SCH (08:59)
[2021-08-03] MEDS: CHOLECALCIFEROL 25 MCG (1000 IU) TABLET PO SCH (08:59)
[2021-08-03] MEDS: METOPROLOL TARTRATE 25 MG TAB PO SCH ×2 (08:59→21:01)
[2021-08-03] MEDS: ZINC SULFATE 220 MG CAP PO SCH (08:59)
[2021-08-03] MEDS: ASCORBIC ACID 500 MG TAB PO SCH (09:00)
[2021-08-03] MEDS: ENOXAPARIN 40 MG/0.4 ML SYRINGE SQ SCH (09:00)
[2021-08-03] MEDS: amLODIPine 5 MG TAB PO SCH (09:00)
[2021-08-03] MEDS: DEXAMETHASONE SOD PHOSPHATE 10 MG/ML 1 ML VIAL IV SCH (09:00)
[2021-08-03] MEDS: BARICITINIB 2 MG TABLET PO SCH (09:00)
[2021-08-03 09:09] LABS: ALT 59 U/L (4-49); AST 47 U/L (17-59); African American GFR (CKD) >90 (>60 ml/min/1.73 sqM); Albumin/Globulin Ratio 1.2; Alkaline Phosphatase 70 U/L (38-126); Anion Gap 6 mmol/L; Blood Urea Nitrogen 30 mg/dL (9-20); Calcium 8.7 mg/dL (8.4-10.2); Carbon Dioxide 25 mmol/L (22-30); Chloride 103 mmol/L (98-107); Globulin 2.6 g/dL; Glucose 87 mg/dL (74-99); Non-African American GFR(CKD) >90 (>60 ml/min/1.73 sqM); Potassium 4.6 mmol/L (3.5-5.1); Sodium 134 mmol/L (137-145); Total Bilirubin 0.5 mg/dL (0.2-1.3); Total Protein 5.6 g/dL (6.3-8.2)
--- NOTE | 2021-08-03 12:23 | P.PN ---
Subjective Progress Note Date: 08/03/21 08/03/2021, the patient is still struggling with his breathing in terms of his Coumadin to related pneumonia. Earlier this morning at around 4 AM, the patient had a spell where he had an increased cough and in between he was unable to catch his breath and the patient desaturated. At that point, he was placed on BiPAP. He was quite hypoxic and he gradually build himself up and currently is back on 14/7 cm of water with an FiO2 of 90%. He is currently holding his BiPAP mask on his face. He is comfortable. He is also willing to consider to go back on high flow oxygen in addition to 100% on a beta facemask. It seems that the patient is alternating between the 2. He remains on Decadron 6 mg on a daily basis. He remains on Baricitinib 4 mg on a daily basis. He remains on Lovenox 40 mg subcu on a daily basis. Also, the white cell count is at 9.8 with hemoglobin of 12.1. His d-dimer from 08/01/2021 was 1.87. Creatinine is at 1.09 with a BUN of 30 and the rest of the electrodes are all within normal limits. He is afebrile. He is tolerating his diet as the patient is able to eat in between different modes of oxygen delivery. He did have a spike of temperature of 11.6 yesterday. He is tachypneic his breathing is labored. Objective - Vital Signs Vital signs: Vital Signs Temp 98.8 F 08/03/21 09:48 Pulse 98 08/03/21 09:48 Resp 32 H 08/03/21 09:48 BP 163/95 08/03/21 09:48 Pulse Ox 94 L 08/03/21 09:48 Intake & Output 08/02/21 08/03/21 08/03/21 18:59 06:59 18:59 Other: Voiding Method Urinal Urinal # Voids 3 3 - Exam The patient is breathing is labored and the patient is currently on a BiPAP at a pressure of 14/7 with an FiO2 of 90 %. He is awake and alert and communicating. The patient went on high flow oxygen at 60 L with an FiO2 of 90% and is currently off the BiPAP. We'll going to alternate the high flow along with the BiPAP. Overnight he would go on the BiPAP. The breathing is labored slightly during this morning evaluation. HEAD: Normocephalic. EYES: Normal reaction of pupils, equal size. NOSE: Clear with pink turbinates. THROAT: No erythema or exudates. NECK: No masses, no JVD. CHEST: No chest wall deformity. LUNGS: Equal air entry with coarse crackles in the bilateral bases. CVS: S1 and S2 normal with no audible murmur, regular rhythm. ABDOMEN: No hepatosplenomegaly, normal bowel sounds, no guarding or rigidity. SPINE: No scoliosis or deformity SKIN: No rashes CENTRAL NERVOUS SYSTEM: No focal deficits, tone is normal in all 4 extremities. EXTREMITIES: There is no peripheral edema. No clubbing, no cyanosis. Peripheral pulses are intact. - Labs CBC & Chem 7: 08/03/21 08:37 08/03/21 08:37 Labs: Abnormal Lab Results - Last 24 Hours (Table) 08/03/21 08/03/21 Range/Units 08:37 08:37 Hgb 12.1 L (13.0-17.5) gm/dL MCHC 30.6 L (31.0-37.0) g/dL Sodium 134 L (137-145) mmol/L BUN 30 H (9-20) mg/dL ALT 59 H (4-49) U/L Total Protein 5.6 L (6.3-8.2) g/dL Albumin 3.0 L (3.5-5.0) g/dL Microbiology - Last 24 Hours (Table) 07/31/21 19:59 Gram Stain - Final Sputum Sputum Culture - Final 07/31/21 02:45 Blood Culture - Preliminary Blood No Growth after 72 hours 07/31/21 03:00 Blood Culture - Preliminary Blood No Growth after 72 hours 07/31/21 07:01 Gram Stain - Final Sputum Sputum Culture - Final Assessment and Plan Plan: 1 Acute hypoxemic respiratory failure secondary to acute COVID-19 pneumonia. Onset of symptoms 8 days ago. He is unvaccinated. He did take a few doses of a friend's hydroxychloroquine. For now, the patient is on high flow oxygen at 60 L with an FiO2 of 90%. This is alternating with BiPAP overnight at a pressure of 14/7 with an FiO2 of 90. Awaiting follow-up systemic markers. This morning he is currently on BiPAP after a rough coughing spell that occurred overnight during which the patient desaturated. He is however willing to go back to high flow oxygen. He is sitting up on a recliner. 2 Elevated inflammatory markers secondary to above 3 Mild transaminitis secondary to above 4 Obesity with a BMI of 50 Plan: Repeated some other markers for tomorrow Continue BiPAP treatment alternating with high flow oxygen at 6 L with an FiO2 of 90% Will monitor this patient on the medical floor and transferred to the intensive care unit if there is any worsening Chest x-ray to be repeated tomorrow Continue the combination of Decadron, Lovenox, and Baricitinib Titrate the FiO2 as tolerated Prone as possible while in bed Prognosis is guarded at this point We will continue to follow and make further recommendations based on his clinical status, unfortunately no major improvement in his condition compared to yesterday. No other major comorbidities. He'll be kept on the medical floor for now. Close monitoring and further ICU transfer if he decompensates.
[2021-08-03 12:36] LABS: Band Neutrophils % 2 %; Eosinophils # (M) 0.29 k/uL (0-0.7); Lymphocytes # (M) 0.69 k/uL (1.0-4.8); Metamyelocytes % 1 %; Monocytes # (M) 0.59 k/uL (0-1.0); Myelocytes # (M) 0.49 k/uL (0); Myelocytes % 5 %; Neutrophils % (M) 77 %; Nucleated Red Blood Cells 0 /100 WBC (0-0); Total Cells Counted 200
--- NOTE | 2021-08-03 19:35 | P.PN ---
Subjective Progress Note Date: 08/03/21 Principal diagnosis: COVID-19 bilateral pneumonia Acute hypoxic respiratory failure 31 years old -[place] man with no significant past medical history presents with dyspnea which started yesterday associated with fever and coughing. Patient tested positive for covid earlier on Thursday after he felt with fever and cough on Thursday but at that time he was not dyspneic. He denies chest pain or abdominal pain but he has diarrhea on and off. No vomiting. He is saturating 89% on 6 L oxygen via nasal cannula, afebrile. Tachypneic with a breathing rate at 23. CBC, is unremarkable. INR is normal at 1.0. Sodium is 1:30, creatinine normal at 1.1, glucose 103. AST is mildly elevated 106 and ALT mildly elevated 106. Elevated lactate dehydrogenase 2600 and C-reactive protein 20.3. Cholelithiasis positive EKG shows sinus tachycardia and [address]-T changes Chest x-ray showing bilateral infiltrates 08/03/2021 patient is seen and evaluated ; continues to have difficulty breathing secondary to COVID-19 pneumonia. Earlier this morning at around 4 AM, the patient had a spell where he had an increased cough and in between he was unable to catch his breath and the patient desaturated. At that point, he was placed on BiPAP. He was quite hypoxic and he gradually build himself up and currently is back on 14/7 cm of water with an FiO2 of 90%. He is currently holding his BiPAP mask on his face. He is comfortable. He is also willing to consider to go back on high flow oxygen in addition to 100% on a beta facemask. --He remains on Decadron 6 mg on a daily basis. He remains on Baricitinib 4 mg on a daily basis. He remains on Lovenox 40 mg subcu on a daily basis. Labs are reviewed and reveal white cell count is at 9.8 with hemoglobin of 12.1. His d-dimer from 08/01/2021 was 1.87. Creatinine is at 1.09 with a BUN of 30 and the rest of the electrodes are all within normal limits. He is afebrile. He is tolerating his diet as the patient is able to eat in between different modes of oxygen delivery. He did have a spike of temperature of 11.6 yesterday. He is tachypneic his breathing is labored. Continue BiPAP treatment alternating with high flow oxygen at 6 L with an FiO2 of 90% Will monitor this patient on the medical floor and transferred to the intensive care unit if there is any worsening Objective - Vital Signs Vital signs: Vital Signs Temp 98.8 F 08/03/21 09:48 Pulse 98 08/03/21 09:48 Resp 32 H 08/03/21 09:48 BP 163/95 08/03/21 09:48 Pulse Ox 94 L 08/03/21 09:48 Intake & Output 08/02/21 08/03/21 08/03/21 18:59 06:59 18:59 Other: Voiding Method Urinal Urinal # Voids 3 3 - Exam GENERAL: The patient is alert and oriented x3, not in any acute distress. Well developed, well nourished. HEENT: Pupils are round and equally reacting to light. EOMI. No scleral icterus. No conjunctival pallor. Normocephalic, atraumatic. No pharyngeal erythema. No thyromegaly. CARDIOVASCULAR: S1 and S2 present. No murmurs, rubs, or gallops. -PULMONARY: Chest is clear to auscultation, no wheezing bilateral crepitation, tachypnea ABDOMEN: Soft, nontender, nondistended, normoactive bowel sounds. No palpable organomegaly. MUSCULOSKELETAL: No joint swelling or deformity. EXTREMITIES: No cyanosis, clubbing, or pedal edema. NEUROLOGICAL: Gross neurological examination did not reveal any focal deficits. SKIN: No rashes. No petechiae - Labs CBC & Chem 7: 08/03/21 08:37 08/03/21 08:37 Labs: Abnormal Lab Results - Last 24 Hours (Table) 08/03/21 08/03/21 Range/Units 08:37 08:37 Hgb 12.1 L (13.0-17.5) gm/dL MCHC 30.6 L (31.0-37.0) g/dL Lymphocytes # (Manual) 0.69 L (1.0-4.8) k/uL Metamyelocytes # (Man) 0.10 H (0) k/uL Myelocytes # (Manual) 0.49 H (0) k/uL Sodium 134 L (137-145) mmol/L BUN 30 H (9-20) mg/dL ALT 59 H (4-49) U/L Total Protein 5.6 L (6.3-8.2) g/dL Albumin 3.0 L (3.5-5.0) g/dL Microbiology - Last 24 Hours (Table) 07/31/21 19:59 Gram Stain - Final Sputum Sputum Culture - Final 07/31/21 02:45 Blood Culture - Preliminary Blood No Growth after 72 hours 07/31/21 03:00 Blood Culture - Preliminary Blood No Growth after 72 hours 07/31/21 07:01 Gram Stain - Final Sputum Sputum Culture - Final Assessment and Plan Assessment: Acute bilateral Covid pneumonia Acute hypoxic respiratory failure Elevated inflammatory markers Obesity with BMI of 49.8 Plan: This is a pleasant 31 years old male who presents with bilateral Covid pneumonia and hypoxia. Continue with oxygen as needed Continue With dexamethasone and Lovenox. Continue with vitamin C, vitamin D and zinc c/w baricitinib Pulmonary consult Labs and medication were reviewed.. Continue same treatment. Continue with symptomatic treatment. Resume home medication. Monitor lytes and vitals. DVT and GI prophylaxis. Further recommendations depends on the clinical course of the patient DVT prophylaxis: Subcutaneous Lovenox GI Prophylaxis: Pepcid Prognosis is guarded
[2021-08-03] MEDS: ALPRAZolam 0.5 MG TAB PO PRN (21:01)
[2021-08-04] MEDS: SODIUM CHLORIDE 0.9% 1,000 ML IV SCH ×2 (02:25→15:17)
[2021-08-04] MEDS: hydrALAZINE HCL 25 MG TAB PO PRN ×3 (02:53→22:42)
--- NOTE | 2021-08-04 07:07 | XR ---
EXAMINATION TYPE: XR chest 1V DATE OF EXAM: 08/04/2021 CLINICAL HISTORY: Difficulty breathing and covid progress study. TECHNIQUE: Single AP portable upright view of the chest is obtained. COMPARISON: Chest x-ray from 3 and 4 days earlier FINDINGS: Improved inspiration on current study. Persistent bilateral reticulonodular opacities. Imp roved more focal right basilar consolidation. Cardiac silhouette size upper limits of normal currentl y, less prominent. Osseous structures are intact. IMPRESSION: Improved inspiration. Improved right basilar focal consolidation. Persistent bilateral di ffuse reticulonodular opacities greatest in prominence in the lower lungs consistent with known covid -19 infection.
[2021-08-04] MEDS: ZINC SULFATE 220 MG CAP PO SCH (07:27)
[2021-08-04] MEDS: ENOXAPARIN 40 MG/0.4 ML SYRINGE SQ SCH (07:27)
[2021-08-04] MEDS: ACETAMINOPHEN TAB 325 MG TAB PO PRN (07:27)
[2021-08-04] MEDS: ASCORBIC ACID 500 MG TAB PO SCH (07:27)
[2021-08-04] MEDS: BARICITINIB 2 MG TABLET PO SCH (07:27)
[2021-08-04] MEDS: FAMOTIDINE 20 MG TAB PO SCH (07:27)
[2021-08-04] MEDS: METOPROLOL TARTRATE 25 MG TAB PO SCH ×2 (07:27→20:22)
[2021-08-04] MEDS: amLODIPine 5 MG TAB PO SCH (07:27)
[2021-08-04] MEDS: DEXAMETHASONE SOD PHOSPHATE 10 MG/ML 1 ML VIAL IV SCH (07:28)
[2021-08-04] MEDS: CHOLECALCIFEROL 25 MCG (1000 IU) TABLET PO SCH (07:28)
[2021-08-04 10:13] LABS: Chloride 102 mmol/L (98-107)
[2021-08-04 10:17] LABS: HCT 41.6 % (39.0-53.0); HGB 13.4 gm/dL (13.0-17.5); MCH 26.8 pg (25.0-35.0); MCHC 32.2 g/dL (31.0-37.0); MCV 83.2 fL (80.0-100.0); Mean Platelet Volume 9.5; Platelet Count 251 k/uL (150-450); RDW 13.7 % (11.5-15.5); WBC 15.3 k/uL (3.8-10.6)
[2021-08-04 10:18] LABS: ALT 63 U/L (4-49); AST 52 U/L (17-59); African American GFR (CKD) >90 (>60 ml/min/1.73 sqM); Albumin 3.2 g/dL (3.5-5.0); Albumin/Globulin Ratio 1.1; Alkaline Phosphatase 77 U/L (38-126); Anion Gap 8 mmol/L; Blood Urea Nitrogen 29 mg/dL (9-20); Calcium 8.6 mg/dL (8.4-10.2); Carbon Dioxide 25 mmol/L (22-30); Globulin 2.8 g/dL; Glucose 92 mg/dL (74-99); Non-African American GFR(CKD) >90 (>60 ml/min/1.73 sqM); Potassium 4.8 mmol/L (3.5-5.1); Sodium 135 mmol/L (137-145); Total Bilirubin 0.6 mg/dL (0.2-1.3)
[2021-08-04 10:50] LABS: C Reactive Protein 13.8 mg/dL (<1.0); LDH 2954 U/L (313-618)
[2021-08-04 11:17] LABS: Band Neutrophils % 5 %; Lymphocytes # (M) 1.07 k/uL (1.0-4.8); Metamyelocytes # (M) 0.15 k/uL (0); Metamyelocytes % 1 %; Monocytes # (M) 0.61 k/uL (0-1.0); Myelocytes # (M) 0.15 k/uL (0); Myelocytes % 1 %; Neutrophils % (M) 83 %; Nucleated Red Blood Cells 0 /100 WBC (0-0); Promyelocytes # (M) 0.15 k/uL (0); Promyelocytes % 1 %; Total Cells Counted 200
[2021-08-04 11:18] LABS: Anisocytosis (M) Present; Poikilocytosis (M) Present
--- NOTE | 2021-08-04 14:30 | P.PN ---
Subjective Progress Note Date: 08/04/21 08/04/2021, the patient is looking slightly better compared to yesterday. Yesterday, the patient was having ongoing difficulties breathing and shortness of breath. He was tachypneic and had a high minute ventilation, he was spending most of the time on BiPAP. He was on a BiPAP at a pressure of 14/7 cm of water. The patient gradually improved since then and currently is on high flow oxygen and 60 L of FiO2 of 90% in addition to 100% nonrebreather facemask. He is less short of breath. Is a rate is lower. Pulse ox is around 8687%. He remains on Decadron 6 mg on a daily basis and addition to Baricitinib 4 mg by mouth daily. He remains on Lovenox and the dose is adjusted to 60 mg subcu every 12 hours because of an elevated d-dimer of 14.3. Meanwhile, his LDH still elevated at 2954 and a CRP still elevated at 13.8. Platelet electrodes are all within normal limits. His white cell count of 15.3 with hemoglobin of 13.4. Chest x- ray from today was reviewed and was compared to the earlier chest x-ray showed improvement in the inspiratory effort and there is also improvement in the right basilar consolidation. However there is still persistent and diffuse breath and pulmonary infiltrates perihilar and lower lobes bilaterally. Patient is awake and alert. No altered mentation. No other new complaints otherwise for now. He has features of obstructive sleep apnea. Is obese. His body mass index is 49.8. Objective - Vital Signs Vital signs: Vital Signs Temp 97.9 F 08/04/21 09:46 Pulse 87 08/04/21 09:46 Resp 32 H 08/04/21 09:46 BP 130/91 08/04/21 09:46 Pulse Ox 86 L 08/04/21 12:23 Intake & Output 08/03/21 08/04/21 08/04/21 18:59 06:59 18:59 Intake Total 600 Output Total 1200 Balance -600 Intake: Intake, IV Titration 600 Amount Sodium Chloride 0.9% 1, 600 000 ml @ 75 mls/hr IV . [id number] [facility] Rx#:[id number] Output: Urine 1200 Other: Voiding Method Urinal # Voids 3 # Bowel Movements 1 1 - Exam The patient is breathing is labored and the patient is currently on high flow oxygen at 60 L with an FiO2 of 90% and is currently off the BiPAP. We'll going to alternate the high flow along with the BiPAP. Overnight he would go on the BiPAP. HEAD: Normocephalic. EYES: Normal reaction of pupils, equal size. NOSE: Clear with pink turbinates. THROAT: No erythema or exudates. NECK: No masses, no JVD. CHEST: No chest wall deformity. LUNGS: Equal air entry with coarse crackles in the bilateral bases. CVS: S1 and S2 normal with no audible murmur, regular rhythm. ABDOMEN: No hepatosplenomegaly, normal bowel sounds, no guarding or rigidity. SPINE: No scoliosis or deformity SKIN: No rashes CENTRAL NERVOUS SYSTEM: No focal deficits, tone is normal in all 4 extremities. EXTREMITIES: There is no peripheral edema. No clubbing, no cyanosis. Peripheral pulses are intact. - Labs CBC & Chem 7: 08/04/21 09:41 08/04/21 09:41 Labs: Abnormal Lab Results - Last 24 Hours (Table) 08/04/21 08/04/21 08/04/21 Range/Units 09:41 09:41 09:41 WBC 15.3 H (3.8-10.6) k/uL Neutrophils # (Manual) 13.40 H (1.3-7.7) k/uL Metamyelocytes # (Man) 0.15 H (0) k/uL Myelocytes # (Manual) 0.15 H (0) k/uL Promyelocytes # (Man) 0.15 H (0) k/uL D-Dimer 14.31 H (<0.60) mg/L FEU Sodium 135 L (137-145) mmol/L BUN 29 H (9-20) mg/dL ALT 63 H (4-49) U/L Lactate Dehydrogenase 2954 H (313-618) U/L C-Reactive Protein 13.8 H (<1.0) mg/dL Total Protein 6.0 L (6.3-8.2) g/dL Albumin 3.2 L (3.5-5.0) g/dL Microbiology - Last 24 Hours (Table) 07/31/21 02:45 Blood Culture - Preliminary Blood No Growth after 96 hours 07/31/21 03:00 Blood Culture - Preliminary Blood No Growth after 96 hours 07/31/21 19:59 Gram Stain - Final Sputum Sputum Culture - Final Assessment and Plan Plan: 1 Acute hypoxemic respiratory failure secondary to acute COVID-19 pneumonia. Onset of symptoms 8 days ago. He is unvaccinated. The patient presented with hypoxic respiratory failure and shortness of breath and the patient progressive worsening in his dyspnea and hypoxemia. Yesterday he spent most of the day on BiPAP at a pressure of 14/7 cm of water. This morning, he seems to be much more comfortable compared to yesterday. He is tachypnea respiratory rate of mental the patient is improved. His chest x-ray findings are also improved. Nev ertheless, the LDH and a d-dimer continues to be quite elevated. 2 Elevated inflammatory markers secondary to above 3 Mild transaminitis secondary to above 4 Obesity with a BMI of 50 Plan: Clinically improved compared to yesterday Chest x-ray improved Stop BiPAP right now and utilized high flow oxygen 6 L with an FiO2 of 90% in addition to 100% nonrebreather facemask Adjust the Lovenox dose 3. Inflammatory markers Chest x-ray to be repeated tomorrow Continue the combination of Decadron, Lovenox, and Baricitinib Titrate the FiO2 as tolerated Prone as possible while in bed Prognosis is guarded at this point We will continue to follow , contacted the and updated her on his condition.
--- NOTE | 2021-08-04 17:32 | P.PN ---
Subjective Progress Note Date: 08/04/21 Principal diagnosis: COVID-19 bilateral pneumonia Acute hypoxic respiratory failure 31 years old -[place] man with no significant past medical history presents with dyspnea which started yesterday associated with fever and coughing. Patient tested positive for covid earlier on Thursday after he felt with fever and cough on Thursday but at that time he was not dyspneic. He denies chest pain or abdominal pain but he has diarrhea on and off. No vomiting. He is saturating 89% on 6 L oxygen via nasal cannula, afebrile. Tachypneic with a breathing rate at 23. CBC, is unremarkable. INR is normal at 1.0. Sodium is 1:30, creatinine normal at 1.1, glucose 103. AST is mildly elevated 106 and ALT mildly elevated 106. Elevated lactate dehydrogenase 2600 and C-reactive protein 20.3. Cholelithiasis positive EKG shows sinus tachycardia and [address]-T changes Chest x-ray showing bilateral infiltrates 08/03/2021 patient is seen and evaluated ; continues to have difficulty breathing secondary to COVID-19 pneumonia. Earlier this morning at around 4 AM, the patient had a spell where he had an increased cough and in between he was unable to catch his breath and the patient desaturated. At that point, he was placed on BiPAP. He was quite hypoxic and he gradually build himself up and currently is back on 14/7 cm of water with an FiO2 of 90%. He is currently holding his BiPAP mask on his face. He is comfortable. He is also willing to consider to go back on high flow oxygen in addition to 100% on a beta facemask. --He remains on Decadron 6 mg on a daily basis. He remains on Baricitinib 4 mg on a daily basis. He remains on Lovenox 40 mg subcu on a daily basis. Labs are reviewed and reveal white cell count is at 9.8 with hemoglobin of 12.1. His d-dimer from 08/01/2021 was 1.87. Creatinine is at 1.09 with a BUN of 30 and the rest of the electrodes are all within normal limits. He is afebrile. He is tolerating his diet as the patient is able to eat in between different modes of oxygen delivery. He did have a spike of temperature of 11.6 yesterday. He is tachypneic his breathing is labored. Continue BiPAP treatment alternating with high flow oxygen at 6 L with an FiO2 of 90% Will monitor this patient on the medical floor and transferred to the intensive care unit if there is any worsening 08/04/2021 the patient is somewhat better compared to yesterday. - The patient gradually improved since then and currently is on high flow oxygen and 60 L of FiO2 of 90% in addition to 100% nonrebreather facemask; He remains on Decadron 6 mg on a daily basis and addition to Baricitinib 4 mg by mouth rachna; Lovenox and the dose is adjusted to 60 mg subcu every 12 hours because of an elevated d-dimer of 14.3. Meanwhile, his LDH still elevated at 2954 and a CRP still elevated at 13.8. Platelet electrodes are all within normal limits. His white cell count of 15.3 with hemoglobin of 13.4. Chest x- ray from today was reviewed and was compared to the earlier chest x-ray showed improvement in the inspiratory effort and there is also improvement in the right basilar consolidation. However there is still persistent and diffuse breath and pulmonary infiltrates perihilar and lower lobes bilaterally. Patient is awake and alert. No altered mentation. No other new complaints otherwise for now. Objective - Vital Signs Vital signs: Vital Signs Temp 97.9 F 08/04/21 09:46 Pulse 87 08/04/21 09:46 Resp 32 H 08/04/21 09:46 BP 130/91 08/04/21 09:46 Pulse Ox 87 L 08/04/21 10:01 Intake & Output 08/03/21 08/04/21 08/04/21 18:59 06:59 18:59 Intake Total 600 Output Total 1200 Balance -600 Intake: Intake, IV Titration 600 Amount Sodium Chloride 0.9% 1, 600 000 ml @ 75 mls/hr IV . [id number] [facility] Rx#:[id number] Output: Urine 1200 Other: Voiding Method Urinal # Voids 3 # Bowel Movements 1 1 - Exam GENERAL: The patient is alert and oriented x3, not in any acute distress. Well developed, well nourished. HEENT: Pupils are round and equally reacting to light. EOMI. No scleral icterus. No conjunctival pallor. Normocephalic, atraumatic. No pharyngeal erythema. No thyromegaly. CARDIOVASCULAR: S1 and S2 present. No murmurs, rubs, or gallops. -PULMONARY: Chest is clear to auscultation, no wheezing bilateral crepitation, tachypnea ABDOMEN: Soft, nontender, nondistended, normoactive bowel sounds. No palpable organomegaly. MUSCULOSKELETAL: No joint swelling or deformity. EXTREMITIES: No cyanosis, clubbing, or pedal edema. NEUROLOGICAL: Gross neurological examination did not reveal any focal deficits. SKIN: No rashes. No petechiae - Labs CBC & Chem 7: 08/04/21 09:41 08/04/21 09:41 Labs: Abnormal Lab Results - Last 24 Hours (Table) 08/03/21 08/04/21 08/04/21 Range/Units 08:37 09:41 09:41 WBC 15.3 H (3.8-10.6) k/uL Lymphocytes # (Manual) 0.69 L (1.0-4.8) k/uL Metamyelocytes # (Man) 0.10 H (0) k/uL Myelocytes # (Manual) 0.49 H (0) k/uL D-Dimer 14.31 H (<0.60) mg/L FEU Microbiology - Last 24 Hours (Table) 07/31/21 02:45 Blood Culture - Preliminary Blood No Growth after 96 hours 07/31/21 03:00 Blood Culture - Preliminary Blood No Growth after 96 hours 07/31/21 19:59 Gram Stain - Final Sputum Sputum Culture - Final Assessment and Plan Assessment: Acute bilateral Covid pneumonia Acute hypoxic respiratory failure Elevated inflammatory markers Obesity with BMI of 49.8 Plan: This is a pleasant 31 years old male who presents with bilateral Covid pneumonia and hypoxia. Continue with oxygen as needed Continue With dexamethasone and Lovenox. Continue with vitamin C, vitamin D and zinc c/w baricitinib Pulmonary consult Labs and medication were reviewed.. Continue same treatment. Continue with symptomatic treatment. Resume home medication. Monitor lytes and vitals. DVT and GI prophylaxis. Further recommendations depends on the clinical course of the patient DVT prophylaxis: Subcutaneous Lovenox GI Prophylaxis: Pepcid Prognosis is guarded
[2021-08-04] MEDS: ENOXAPARIN 60 MG/0.6 ML SYRINGE SQ SCH (20:22)
[2021-08-04] MEDS: ALPRAZolam 0.5 MG TAB PO PRN (22:48)
[2021-08-05] MEDS: lisinopriL 5 MG TAB PO SCH ×2 (02:05→10:32)
[2021-08-05] MEDS: ACETAMINOPHEN TAB 325 MG TAB PO PRN ×2 (02:05→06:34)
[2021-08-05] MEDS: hydrALAZINE HCL 25 MG TAB PO PRN (06:35)
[2021-08-05 07:04] LABS: HCT 42.5 % (39.0-53.0); HGB 13.1 gm/dL (13.0-17.5); MCH 26.4 pg (25.0-35.0); MCHC 30.9 g/dL (31.0-37.0); MCV 85.4 fL (80.0-100.0); Mean Platelet Volume 9.3; Platelet Count 245 k/uL (150-450); RBC 4.97 m/uL (4.30-5.90); RDW 13.5 % (11.5-15.5); WBC 19.1 k/uL (3.8-10.6)
[2021-08-05 07:15] LABS: ALT 56 U/L (4-49); AST 51 U/L (17-59); African American GFR (CKD) >90 (>60 ml/min/1.73 sqM); Albumin 3.4 g/dL (3.5-5.0); Albumin/Globulin Ratio 1.3; Alkaline Phosphatase 86 U/L (38-126); Anion Gap 7 mmol/L; Blood Urea Nitrogen 29 mg/dL (9-20); Calcium 8.8 mg/dL (8.4-10.2); Carbon Dioxide 28 mmol/L (22-30); Chloride 98 mmol/L (98-107); Globulin 2.7 g/dL; Glucose 83 mg/dL (74-99); Non-African American GFR(CKD) 87 (>60 ml/min/1.73 sqM); Potassium 4.7 mmol/L (3.5-5.1); Sodium 133 mmol/L (137-145); Total Bilirubin 0.7 mg/dL (0.2-1.3); Total Protein 6.1 g/dL (6.3-8.2)
[2021-08-05 07:27] LABS: C Reactive Protein 18.2 mg/dL (<1.0); LDH 2935 U/L (313-618)
[2021-08-05] MEDS: ENOXAPARIN 60 MG/0.6 ML SYRINGE SQ SCH ×2 (07:45→19:49)
[2021-08-05] MEDS: ASCORBIC ACID 500 MG TAB PO SCH (07:45)
[2021-08-05] MEDS: METOPROLOL TARTRATE 25 MG TAB PO SCH ×2 (07:45→19:49)
[2021-08-05] MEDS: DEXAMETHASONE SOD PHOSPHATE 10 MG/ML 1 ML VIAL IV SCH (07:45)
[2021-08-05] MEDS: amLODIPine 5 MG TAB PO SCH (07:46)
[2021-08-05] MEDS: ZINC SULFATE 220 MG CAP PO SCH (07:46)
[2021-08-05] MEDS: CHOLECALCIFEROL 25 MCG (1000 IU) TABLET PO SCH (07:46)
[2021-08-05] MEDS: FAMOTIDINE 20 MG TAB PO SCH (07:46)
[2021-08-05] MEDS: BARICITINIB 2 MG TABLET PO SCH (07:47)
[2021-08-05 10:34] LABS: Band Neutrophils % 1 %; Lymphocytes # (M) 0.96 k/uL (1.0-4.8); Metamyelocytes # (M) 0.19 k/uL (0); Metamyelocytes % 1 %; Monocytes # (M) 0.76 k/uL (0-1.0); Myelocytes # (M) 0.38 k/uL (0); Myelocytes % 2 %; Neutrophils % (M) 88 %; Nucleated Red Blood Cells 0 /100 WBC (0-0); Total Cells Counted 200
[2021-08-05] MEDS: SODIUM CHLORIDE 0.9% 1,000 ML IV SCH (13:30)
--- NOTE | 2021-08-05 14:38 | P.PN ---
Subjective This is a pleasant 31 years old -[place] man with no significant past medical history presents with dyspnea which started yesterday associated with fever and coughing. Patient tested positive for covid earlier on Thursday after he felt with fever and cough on Thursday but at that time he was not dyspneic. He denies chest pain or abdominal pain but he has diarrhea on and off. No vomiting. He is saturating 89% on 6 L oxygen via nasal cannula, afebrile. Tachypneic with a breathing rate at 23. CBC, is unremarkable. INR is normal at 1.0. Sodium is 1:30, creatinine normal at 1.1, glucose 103. AST is mildly elevated 106 and ALT mildly elevated 106. Elevated lactate dehydrogenase 2600 and C-reactive protein 20.3. Cholelithiasis positive EKG shows sinus tachycardia and [address]-T changes Chest x-ray showing bilateral infiltrates 08/01/2021 Patient sitting at bedside using 50 L of oxygen via nonrebreather. Reports slight improvement in his breathing and his chest x-ray showing somewhat improvement in that area should on both sides. He has low-grade fever today at 200. Blood pressure is stable. D-dimer is 1.87. BMP is unremarkable, liver enzymes slightly trending down. LDH slightly down at 2437 and slightly decreased and C-reactive protein 16.7. CBC and pro-calcitonin are pending Sputum and blood culture are still pending He remains on multiple vitamins, Baricitinib, dexamethasone and normal saline at 75 mL/h. Also he is on Lovenox. Norvasc is added for blood pressure control also we will add metoprolol Subjective: 08/05/21 patient still with dyspnea requiring BiPAP most of the time. He is developing fever of 101.7 today. Blood pressure 157/91. He has leukocytosis 19.1.liver enzymes Are the same. LDH elevated 2935 and C- reactive protein 18.2 his still on multiple vitamins, Baricitinib, dexamethasone and normal saline at 50 mL/h. Also he is on Lovenox therapeutic dose after his d-dimer yesterday. Objective - Vital Signs Vital signs: Vital Signs Temp 98.5 F 08/05/21 13:59 Pulse 104 H 08/05/21 13:59 Resp 18 08/05/21 13:59 BP 157/91 08/05/21 13:59 Pulse Ox 93 L 08/05/21 13:59 Intake & Output 08/04/21 08/05/21 08/05/21 18:59 06:59 18:59 Intake Total 400 Balance 400 Intake: Intake, IV Titration 400 Amount Sodium Chloride 0.9% 1, 400 000 ml @ 50 mls/hr IV . Q20H [facility] Rx#:[id number] Other: Voiding Method Urinal Urinal # Voids 4 - Exam GENERAL: The patient is alert and oriented x3, not in any acute distress. Well developed, well nourished. HEENT: Pupils are round and equally reacting to light. EOMI. No scleral icterus. No conjunctival pallor. Normocephalic, atraumatic. No pharyngeal erythema. No thyromegaly. CARDIOVASCULAR: S1 and S2 present. No murmurs, rubs, or gallops. -PULMONARY: Chest is clear to auscultation, no wheezing bilateral crepitation, tachypnea ABDOMEN: Soft, nontender, nondistended, normoactive bowel sounds. No palpable organomegaly. MUSCULOSKELETAL: No joint swelling or deformity. EXTREMITIES: No cyanosis, clubbing, or pedal edema. NEUROLOGICAL: Gross neurological examination did not reveal any focal deficits. SKIN: No rashes. No petechiae - Labs CBC & Chem 7: 08/05/21 06:22 08/05/21 06:22 Labs: Abnormal Lab Results - Last 24 Hours (Table) 08/05/21 08/05/21 08/05/21 Range/Units 06:22 06:22 06:22 WBC 19.1 H (3.8-10.6) k/uL MCHC 30.9 L (31.0-37.0) g/dL Neutrophils # (Manual) 16.90 H (1.3-7.7) k/uL Lymphocytes # (Manual) 0.96 L (1.0-4.8) k/uL Metamyelocytes # (Man) 0.19 H (0) k/uL Myelocytes # (Manual) 0.38 H (0) k/uL Sodium 133 L (137-145) mmol/L BUN 29 H (9-20) mg/dL ALT 56 H (4-49) U/L Lactate Dehydrogenase 2935 H (313-618) U/L C-Reactive Protein 18.2 H (<1.0) mg/dL Total Protein 6.1 L (6.3-8.2) g/dL Albumin 3.4 L (3.5-5.0) g/dL Procalcitonin 0.40 H (0.02-0.09) ng/mL Microbiology - Last 24 Hours (Table) 07/31/21 03:00 Blood Culture - Preliminary Blood No Growth after 120 hours 07/31/21 02:45 Blood Culture - Preliminary Blood No Growth after 120 hours Assessment and Plan Assessment: Acute bilateral Covid pneumonia Acute hypoxic respiratory failure Elevated inflammatory markers Elevated d-dimer Obesity with BMI of 49.8 Plan: This is a pleasant 31 years old male who presents with bilateral Covid pneumonia and hypoxia. Continue with oxygen as needed. Continue With dexamethasone and Lovenox. Continue with vitamin C, vitamin D and zinc c/w baricitinib Pulmonary consult Labs and medication were reviewed.. Continue same treatment. Continue with symptomatic treatment. Resume home medication. Monitor lytes and vitals. DVT and GI prophylaxis. Further recommendations depends on the clinical course of the patient DVT prophylaxis: Subcutaneous Lovenox GI Prophylaxis: Pepcid Prognosis is guarded
--- NOTE | 2021-08-05 15:36 | P.PN ---
Subjective Progress Note Date: 08/05/21 Principal diagnosis: Acute hypoxia, COVID-19 pneumonia On today's evaluation patient is seen in follow-up on 08/05/2021, he is currently on BiPAP support with pressure of 14/8, and the pulse ox is 87-93%, patient does alternate with Airvo at 60 L and 90% FiO2, and at bedtime and as needed for periods of time during the day he does go on BiPAP. He is awake and alert, he sitting up on the edge of the bed, dyspneic with exertion, but no acute distress, he remains on Bicitra neb, he is on IV Decadron, Lovenox 60 mg twice daily, he is on 0.9 normal saline at a rate of 50 ML per hour, he is on multivitamins, his latest chest x-ray from 08/04/2021 showed improved inspiration, improved right basilar focal consolidation, and persistent bilateral diffuse reticulonodular opacities in the lower lungs consistent with known COVID-19 infection. Today's labs have been reviewed, his white blood cell count is 19.1, hemoglobin is 13.1, d-dimer is 14.3, sodium is 133, the rest of electrolytes and renal profile were fairly unremarkable, his inflammatory markers are relatively stable and LDH is 2935, and CRP is 18.2, pro calcitonin level is slightly improved and is down to 0.40. His blood and sputum cultures have shown no growth. He did have a fever with a temp of 101.7F. Currently afebrile. No complaints of chest discomfort. No hemoptysis, his lower extremity Dopplers were negative for DVT. Objective - Vital Signs Vital signs: Vital Signs Temp 98.5 F 08/05/21 13:59 Pulse 104 H 08/05/21 13:59 Resp 18 08/05/21 13:59 BP 157/91 08/05/21 13:59 Pulse Ox 93 L 08/05/21 13:59 Intake & Output 08/04/21 08/05/21 08/05/21 18:59 06:59 18:59 Intake Total 400 Balance 400 Intake: Intake, IV Titration 400 Amount Sodium Chloride 0.9% 1, 400 000 ml @ 50 mls/hr IV . Q20H [facility] Rx#:[id number] Other: Voiding Method Urinal Urinal # Voids 4 - Exam GENERAL EXAM: Alert, pleasant, 31-year-old male, on BiPAP support, alternating with Airvo at 60 L and 90% comfortable in no apparent distress. HEAD: Normocephalic/atraumatic. EYES: Normal reaction of pupils, equal size. Conjunctiva pink, sclera white. NOSE: Clear with pink turbinates. THROAT: No erythema or exudates. NECK: No masses, no JVD, no thyroid enlargement, no adenopathy. CHEST: No chest wall deformity. Symmetrical expansion. LUNGS: Equal air entry with bibasilar crackles CVS: Regular rate and rhythm, normal S1 and S2, no gallops, no murmurs, no rubs ABDOMEN: Soft, nontender. No hepatosplenomegaly, normal bowel sounds, no guarding or rigidity. EXTREMITIES: No clubbing, no edema, no cyanosis, 2+ pulses and upper and lower extremities. MUSCULOSKELETAL: Muscle strength and tone normal. SPINE: No scoliosis or deformity SKIN: No rashes CENTRAL NERVOUS SYSTEM: Alert and oriented -3. No focal deficits, tone is normal in all 4 extremities. PSYCHIATRIC: Alert and oriented -3. Appropriate affect. Intact judgment and insight. - Labs CBC & Chem 7: 08/05/21 06:22 08/05/21 06:22 Labs: Abnormal Lab Results - Last 24 Hours (Table) 08/05/21 08/05/21 08/05/21 Range/Units 06:22 06:22 06:22 WBC 19.1 H (3.8-10.6) k/uL MCHC 30.9 L (31.0-37.0) g/dL Neutrophils # (Manual) 16.90 H (1.3-7.7) k/uL Lymphocytes # (Manual) 0.96 L (1.0-4.8) k/uL Metamyelocytes # (Man) 0.19 H (0) k/uL Myelocytes # (Manual) 0.38 H (0) k/uL Sodium 133 L (137-145) mmol/L BUN 29 H (9-20) mg/dL ALT 56 H (4-49) U/L Lactate Dehydrogenase 2935 H (313-618) U/L C-Reactive Protein 18.2 H (<1.0) mg/dL Total Protein 6.1 L (6.3-8.2) g/dL Albumin 3.4 L (3.5-5.0) g/dL Procalcitonin 0.40 H (0.02-0.09) ng/mL Microbiology - Last 24 Hours (Table) 07/31/21 03:00 Blood Culture - Preliminary Blood No Growth after 120 hours 07/31/21 02:45 Blood Culture - Preliminary Blood No Growth after 120 hours Assessment and Plan Plan: Assessment: #1. Acute hypoxic respiratory failure secondary to acute COVID-19 pneumonia, with onset of symptoms 8 days prior to presentation, patient is on Vioxx and needed, at the time of presentation he was in severe respiratory failure requiring high flow oxygen, and BiPAP support at nighttime. Currently he remains on BiPAP at a pressure of 14/7, alternating with Airvo at 60 L and 90% FiO2. Remains on a combination of Baricitinib, steroids and Lovenox #2. Elevated d-dimer, lower extremity Dopplers were negative for DVT, patient is currently on Lovenox 60 mg twice daily #3. Elevated inflammatory markers secondary to COVID-19 pneumonia #4. Mild transaminitis secondary to viral pneumonia #5. Obesity with BMI of 50 kg/m Plan: Continue current medical treatments Labs have been noted, Patient continues to require high flow oxygen, and BiPAP support at bedtime and as needed Overall prognosis is guarded We'll continue current medical treatment with a combination of Decadron, lovenox and Baricitib Obtain follow-up d-dimer, and inflammatory markers If worsening shortness of breath we'll transfer to the intensive care unit I performed a history & physical examination of the patient and discussed their management with my nurse practitioner, Socorro Finnegan. I reviewed the nurse practitioner's note and agree with the documented findings and plan of care. Lung sounds are positive for diminished breath sounds with diffuse crackles throughout the lung stevens. The findings and the impression was discussed with the patient. I attest to the documentation by the nurse practitioner. Time with Patient: Less than 30
[2021-08-06] MEDS: ACETAMINOPHEN TAB 325 MG TAB PO PRN ×2 (03:23→07:44)
[2021-08-06] MEDS: DEXAMETHASONE SOD PHOSPHATE 10 MG/ML 1 ML VIAL IV SCH (07:29)
[2021-08-06] MEDS: SODIUM CHLORIDE 0.9% 1,000 ML IV SCH (07:29)
[2021-08-06] MEDS: lisinopriL 5 MG TAB PO SCH (07:30)
[2021-08-06] MEDS: amLODIPine 5 MG TAB PO SCH (07:30)
[2021-08-06] MEDS: ZINC SULFATE 220 MG CAP PO SCH (07:30)
[2021-08-06] MEDS: METOPROLOL TARTRATE 25 MG TAB PO SCH ×2 (07:31→20:18)
[2021-08-06] MEDS: CHOLECALCIFEROL 25 MCG (1000 IU) TABLET PO SCH (07:31)
[2021-08-06] MEDS: FAMOTIDINE 20 MG TAB PO SCH (07:31)
[2021-08-06] MEDS: ASCORBIC ACID 500 MG TAB PO SCH (07:31)
[2021-08-06] MEDS: ENOXAPARIN 60 MG/0.6 ML SYRINGE SQ SCH (07:32)
[2021-08-06] MEDS: BARICITINIB 2 MG TABLET PO SCH (07:40)
[2021-08-06 07:47] LABS: ALT 55 U/L (4-49); AST 54 U/L (17-59); African American GFR (CKD) >90 (>60 ml/min/1.73 sqM); Albumin 3.2 g/dL (3.5-5.0); Albumin/Globulin Ratio 1.1; Alkaline Phosphatase 82 U/L (38-126); Anion Gap 11 mmol/L; Blood Urea Nitrogen 27 mg/dL (9-20); Calcium 8.8 mg/dL (8.4-10.2); Carbon Dioxide 22 mmol/L (22-30); Chloride 98 mmol/L (98-107); Globulin 2.9 g/dL; Glucose 75 mg/dL (74-99); Non-African American GFR(CKD) >90 (>60 ml/min/1.73 sqM); Potassium 4.9 mmol/L (3.5-5.1); Sodium 131 mmol/L (137-145); Total Bilirubin 0.7 mg/dL (0.2-1.3); Total Protein 6.1 g/dL (6.3-8.2)
[2021-08-06 07:51] LABS: Basophils # (A) 0.1 k/uL (0-0.2); Basophils % (A) 0 %; Eosinophils # (A) 0.1 k/uL (0-0.7); Eosinophils % (A) 1 %; HCT 42.4 % (39.0-53.0); Lymphocytes # (A) 1.4 k/uL (1.0-4.8); Lymphocytes % (A) 6 %; MCH 26.4 pg (25.0-35.0); MCHC 30.5 g/dL (31.0-37.0); MCV 86.4 fL (80.0-100.0); Mean Platelet Volume 10.2; Monocytes # (A) 0.5 k/uL (0-1.0); Monocytes % (A) 2 %; Neutrophils # (A) 19.9 k/uL (1.3-7.7); Neutrophils % (A) 90 %; Platelet Count 242 k/uL (150-450); RBC 4.91 m/uL (4.30-5.90); RDW 13.6 % (11.5-15.5); WBC 22.1 k/uL (3.8-10.6)
[2021-08-06 08:01] LABS: LDH 2931 U/L (313-618)
[2021-08-06] MEDS: ALBUTEROL HFA INHALER INHALATION PRN ×3 (08:21→15:56)
[2021-08-06 08:24] LABS: C Reactive Protein 31.6 mg/dL (<1.0)
[2021-08-06] MEDS ORDERED: PIPERACILLIN-TAZOBACTAM 3.375 GM in SODIUM CHLORIDE 0.9% 100 ML IVPB SCH (10:30)
--- NOTE | 2021-08-06 11:29 | CT ---
CT CHEST FOR PULMONARY EMBOLISM. EXAMINATION TYPE: CT chest angio for PE DATE OF EXAM: 08/06/2021 INDICATION: severe shortness of breath. elevated d dimer CT DLP: 1033 mGycm, Automated exposure control for dose reduction was used. CONTRAST: Patient injected with 100 mL of Isovue 370. COMPARISON: None TECHNIQUE: CT of the chest is performed on a spiral scan at 2 mm thick sections. Study is performed with intravenous contrast timed for evaluation for pulmonary embolism. This will limit additional po rtions of the evaluation. 3-D MIP images reconstructed by the technologist are reviewed on the compu ter in the coronal and sagittal planes. FINDINGS: Nonobstructing thrombus appears to be within a right middle lobe pulmonary artery, example image seri es 402, image 92. An additional nonobstructing thrombus may be in the right lower lobe. Series 401 im age 71 No mediastinal or hilar adenopathy enlarged by CT criteria is evident. The ascending aorta diameter at the level of the main pulmonary artery is 3.1 cm. The main pulmonary artery diameter at the bifur cation is 3.0 cm. Right apical thickening is present. There is increased density along the right posterior lateral lung . Groundglass opacities are present bilaterally. Findings can be compatible with atypical pneumonia. Limited CT section through the upper abdomen are unremarkable. IMPRESSIONS: 1. At least 2 nonobstructing thrombus within the right lung pulmonary arteries. This could be subacut e or old pulmonary emboli. 2. No suspicious acute obstructing pulmonary emboli are identified. 3. Diffuse bilateral groundglass opacities with some more focal consolidation periphery of the right upper lobe can be compatible with atypical pneumonia.
[2021-08-06 11:50] LABS: Appearance,Urine Clear (Clear); Bilirubin,Urine Negative (Negative); Blood,Urine Small (Negative); Color,Urine Light Yellow; Glucose,Urine (UA) Negative (Negative); Ketones,Urine 1+ (Negative); Leukocyte Esterase,Urine Negative (Negative); Mucus,Urine Rare /hpf; Nitrite,Urine Negative (Negative); PH, Urine 5.5 (5.0-8.0); Protein,Urine 1+ (Negative); RBC,Urine <1 /hpf (0-5); Specific Gravity,Urine 1.017 (1.001-1.035); Urobilinogen,Urine <2.0 mg/dL (<2.0); WBC,Urine <1 /hpf (0-5)
[2021-08-06] MEDS ORDERED: HEPARIN SODIUM 1,000 UN/ML (10ML VL) IV ONE (12:29)
--- NOTE | 2021-08-06 13:02 | P.PN ---
Subjective This is a pleasant 31 years old -[place] man with no significant past medical history presents with dyspnea which started yesterday associated with fever and coughing. Patient tested positive for covid earlier on Thursday after he felt with fever and cough on Thursday but at that time he was not dyspneic. He denies chest pain or abdominal pain but he has diarrhea on and off. No vomiting. He is saturating 89% on 6 L oxygen via nasal cannula, afebrile. Tachypneic with a breathing rate at 23. CBC, is unremarkable. INR is normal at 1.0. Sodium is 1:30, creatinine normal at 1.1, glucose 103. AST is mildly elevated 106 and ALT mildly elevated 106. Elevated lactate dehydrogenase 2600 and C-reactive protein 20.3. Cholelithiasis positive EKG shows sinus tachycardia and [address]-T changes Chest x-ray showing bilateral infiltrates 08/01/2021 Patient sitting at bedside using 50 L of oxygen via nonrebreather. Reports slight improvement in his breathing and his chest x-ray showing somewhat improvement in that area should on both sides. He has low-grade fever today at 200. Blood pressure is stable. D-dimer is 1.87. BMP is unremarkable, liver enzymes slightly trending down. LDH slightly down at 2437 and slightly decreased and C-reactive protein 16.7. CBC and pro-calcitonin are pending Sputum and blood culture are still pending He remains on multiple vitamins, Baricitinib, dexamethasone and normal saline at 75 mL/h. Also he is on Lovenox. Norvasc is added for blood pressure control also we will add metoprolol Subjective: 08/05/21 patient still with dyspnea requiring BiPAP most of the time. He is developing fever of 101.7 today. Blood pressure 157/91. He has leukocytosis 19.1.liver enzymes Are the same. LDH elevated 2935 and C- reactive protein 18.2 his still on multiple vitamins, Baricitinib, dexamethasone and normal saline at 50 mL/h. Also he is on Lovenox therapeutic dose after his d-dimer yesterday. 08/06/2021 Patient remains on BiPAP needing higher pressures 14/8 and FiO2 of 100%. Also history of chronic fever around 100 and pro-calcitonin elevated at 0.40. This left leukocytosis around 22, LDH and C-reactive protein still elevated. D- dimer is trending down to 8.5 and CTA of the chest today showing negative for PE but bilateral groundglass opacity. Sputum culture 2 is negative. Urine analysis is negative for infection Today patient SWITCHED to heparin drip. Also he was started on Zosyn. Also dexamethasone 6 mg daily and normal saline at 50 mL per hour. Discontinue B aricitinib per pulmonary Objective - Vital Signs Vital signs: Vital Signs Temp 98.7 F 08/06/21 10:00 Pulse 100 08/06/21 10:00 Resp 23 08/06/21 10:00 BP 159/103 08/06/21 10:00 Pulse Ox 91 L 08/06/21 11:54 Intake & Output 08/05/21 08/06/21 08/06/21 18:59 06:59 18:59 Output Total 600 Balance -600 Output: Urine 600 Other: Voiding Method Urinal Urinal # Voids 3 # Bowel Movements 2 - Exam GENERAL: The patient is alert and oriented x3, not in any acute distress. Well developed, well nourished. HEENT: Pupils are round and equally reacting to light. EOMI. No scleral icterus. No conjunctival pallor. Normocephalic, atraumatic. No pharyngeal erythema. No thyromegaly. CARDIOVASCULAR: S1 and S2 present. No murmurs, rubs, or gallops. -PULMONARY: Chest is clear to auscultation, no wheezing bilateral crepitation, tachypnea ABDOMEN: Soft, nontender, nondistended, normoactive bowel sounds. No palpable organomegaly. MUSCULOSKELETAL: No joint swelling or deformity. EXTREMITIES: No cyanosis, clubbing, or pedal edema. NEUROLOGICAL: Gross neurological examination did not reveal any focal deficits. SKIN: No rashes. No petechiae - Labs CBC & Chem 7: 08/06/21 06:22 08/06/21 06:21 Labs: Abnormal Lab Results - Last 24 Hours (Table) 08/06/21 08/06/21 08/06/21 Range/Units 06:21 06:22 06:22 WBC 22.1 H (3.8-10.6) k/uL MCHC 30.5 L (31.0-37.0) g/dL Neutrophils # 19.9 H (1.3-7.7) k/uL D-Dimer 8.58 H (<0.60) mg/L FEU Sodium 131 L (137-145) mmol/L BUN 27 H (9-20) mg/dL ALT 55 H (4-49) U/L Lactate Dehydrogenase 2931 H (313-618) U/L C-Reactive Protein 31.6 H (<1.0) mg/dL Total Protein 6.1 L (6.3-8.2) g/dL Albumin 3.2 L (3.5-5.0) g/dL Urine Protein (Negative) Urine Ketones (Negative) Urine Blood (Negative) Urine Mucus (None) /hpf 08/06/21 Range/Units 11:34 WBC (3.8-10.6) k/uL MCHC (31.0-37.0) g/dL Neutrophils # (1.3-7.7) k/uL D-Dimer (<0.60) mg/L FEU Sodium (137-145) mmol/L BUN (9-20) mg/dL ALT (4-49) U/L Lactate Dehydrogenase (313-618) U/L C-Reactive Protein (<1.0) mg/dL Total Protein (6.3-8.2) g/dL Albumin (3.5-5.0) g/dL Urine Protein 1+ H (Negative) Urine Ketones 1+ H (Negative) Urine Blood Small H (Negative) Urine Mucus Rare H (None) /hpf Microbiology - Last 24 Hours (Table) 07/31/21 02:45 Blood Culture - Final Blood No Growth after 144 hours 07/31/21 03:00 Blood Culture - Final Blood No Growth after 144 hours Assessment and Plan Assessment: Acute bilateral Covid pneumonia Acute hypoxic respiratory failure Elevated inflammatory markers Elevated d-dimer Obesity with BMI of 49.8 Plan: This is a pleasant 31 years old male who presents with bilateral Covid pneumonia and hypoxia. Continue with oxygen as needed. Continue With dexamethasone . Continue with vitamin C, vitamin D and zinc. Discontinue Baricitinib c/w heparin drip. Discontinue Lovenox Continue with Zosyn Pulmonary consult Labs and medication were reviewed.. Continue same treatment. Continue with symptomatic treatment. Resume home medication. Monitor lytes and vitals. DVT and GI prophylaxis. Further recommendations depends on the clinical course of the patient DVT prophylaxis: Subcutaneous Lovenox GI Prophylaxis: Pepcid Prognosis is guarded
[2021-08-06] MEDS: HEPARIN SOD,PORK IN 0.45% NACL 25,000 UNIT in 0.45% NACL 1 250ML.BAG IV SCH ×2 (13:34→22:37)
[2021-08-06 13:37] LABS: Partial Thromboplastin Time 23.9 sec (22.0-30.0)
--- NOTE | 2021-08-06 13:40 | P.PN ---
Subjective Progress Note Date: 08/06/21 Principal diagnosis: Acute hypoxia, COVID-19 pneumonia On today's evaluation patient is seen in follow-up on 08/05/2021, he is currently on BiPAP support with pressure of 14/8, and the pulse ox is 87-93%, patient does alternate with Airvo at 60 L and 90% FiO2, and at bedtime and as needed for periods of time during the day he does go on BiPAP. He is awake and alert, he sitting up on the edge of the bed, dyspneic with exertion, but no acute distress, he remains on Bicitra neb, he is on IV Decadron, Lovenox 60 mg twice daily, he is on 0.9 normal saline at a rate of 50 ML per hour, he is on multivitamins, his latest chest x-ray from 08/04/2021 showed improved inspiration, improved right basilar focal consolidation, and persistent bilateral diffuse reticulonodular opacities in the lower lungs consistent with known COVID-19 infection. Today's labs have been reviewed, his white blood cell count is 19.1, hemoglobin is 13.1, d-dimer is 14.3, sodium is 133, the rest of electrolytes and renal profile were fairly unremarkable, his inflammatory markers are relatively stable and LDH is 2935, and CRP is 18.2, pro calcitonin level is slightly improved and is down to 0.40. His blood and sputum cultures have shown no growth. He did have a fever with a temp of 101.7F. Currently afebrile. No complaints of chest discomfort. No hemoptysis, his lower extremity Dopplers were negative for DVT. On 08/06/2021 patient seen in follow-up on medical surgical floor. Patient still requiring high flow oxygen per Airvo, and he is requiring BiPAP support most of time with pressures of 14/88 and FiO2 of 100% and his pulse ox is 87- 90%, he continues to have fevers, with a T-max 101.7F, overnight his fever pattern has improved and he still having some low-grade fevers. He is short of breath with any exertion. He continues on Decadron 6 mg daily, Baricitinib, and Lovenox at intermediate dosing at 0.5 mg/kg twice daily which is above 60 mg twice daily for this patient's weight. His d-dimer is down to 8.58 on today's labs, improved although still significantly elevated, lower extremity Dopplers were negative for any evidence of DVT. There is concern for superimposed bacterial infection, especially in view of fever, and elevated white blood cell count. Today's white count is 22.1, hemoglobin is 13, sodium is 131, rest of electrolytes were within normal limits, B1 is 27 creatinine 0.89, pro Level Was Borderline at 0.40, Also Suggestive of a Possible Super Imposed Bacterial Infection. Objective - Vital Signs Vital signs: Vital Signs Temp 98.7 F 08/06/21 10:00 Pulse 100 08/06/21 10:00 Resp 23 08/06/21 10:00 BP 159/103 08/06/21 10:00 Pulse Ox 91 L 08/06/21 11:54 Intake & Output 08/05/21 08/06/21 08/06/21 18:59 06:59 18:59 Output Total 600 Balance -600 Output: Urine 600 Other: Voiding Method Urinal Urinal # Voids 3 # Bowel Movements 2 - Exam GENERAL EXAM: Alert, pleasant, 31-year-old male, on BiPAP support at 14/8 on FiO2 of 100%, alternating with Airvo at 60 L and 90% comfortable in no apparent distress. HEAD: Normocephalic/atraumatic. EYES: Normal reaction of pupils, equal size. Conjunctiva pink, sclera white. NOSE: Clear with pink turbinates. THROAT: No erythema or exudates. NECK: No masses, no JVD, no thyroid enlargement, no adenopathy. CHEST: No chest wall deformity. Symmetrical expansion. LUNGS: Equal air entry with bibasilar crackles CVS: Regular rate and rhythm, normal S1 and S2, no gallops, no murmurs, no rubs ABDOMEN: Soft, nontender. No hepatosplenomegaly, normal bowel sounds, no guarding or rigidity. EXTREMITIES: No clubbing, no edema, no cyanosis, 2+ pulses and upper and lower extremities. MUSCULOSKELETAL: Muscle strength and tone normal. SPINE: No scoliosis or deformity SKIN: No rashes CENTRAL NERVOUS SYSTEM: Alert and oriented -3. No focal deficits, tone is normal in all 4 extremities. PSYCHIATRIC: Alert and oriented -3. Appropriate affect. Intact judgment and insight. - Labs CBC & Chem 7: 08/06/21 06:22 08/06/21 06:21 Labs: Abnormal Lab Results - Last 24 Hours (Table) 08/06/21 08/06/21 08/06/21 Range/Units 06:21 06:22 06:22 WBC 22.1 H (3.8-10.6) k/uL MCHC 30.5 L (31.0-37.0) g/dL Neutrophils # 19.9 H (1.3-7.7) k/uL D-Dimer 8.58 H (<0.60) mg/L FEU Sodium 131 L (137-145) mmol/L BUN 27 H (9-20) mg/dL ALT 55 H (4-49) U/L Lactate Dehydrogenase 2931 H (313-618) U/L C-Reactive Protein 31.6 H (<1.0) mg/dL Total Protein 6.1 L (6.3-8.2) g/dL Albumin 3.2 L (3.5-5.0) g/dL Urine Protein (Negative) Urine Ketones (Negative) Urine Blood (Negative) Urine Mucus (None) /hpf 08/06/21 Range/Units 11:34 WBC (3.8-10.6) k/uL MCHC (31.0-37.0) g/dL Neutrophils # (1.3-7.7) k/uL D-Dimer (<0.60) mg/L FEU Sodium (137-145) mmol/L BUN (9-20) mg/dL ALT (4-49) U/L Lactate Dehydrogenase (313-618) U/L C-Reactive Protein (<1.0) mg/dL Total Protein (6.3-8.2) g/dL Albumin (3.5-5.0) g/dL Urine Protein 1+ H (Negative) Urine Ketones 1+ H (Negative) Urine Blood Small H (Negative) Urine Mucus Rare H (None) /hpf Microbiology - Last 24 Hours (Table) 07/31/21 02:45 Blood Culture - Final Blood No Growth after 144 hours 07/31/21 03:00 Blood Culture - Final Blood No Growth after 144 hours Assessment and Plan Plan: Assessment: #1. Acute hypoxic respiratory failure secondary to acute COVID-19 pneumonia, with onset of symptoms 8 days prior to presentation, patient is on Vioxx and needed, at the time of presentation he was in severe respiratory failure requiring high flow oxygen, and BiPAP support at nighttime. Currently he remains on BiPAP at a pressure of 14/7, and FiO2 of 100% alternating with Airvo at 60 L and 90% FiO2. Remains on a combination of Baricitinib, steroids and Lovenox #2. Acute pulmonary emboli, with at least 2 nonobstructing thrombosis within th e right lung pulmonary artery, patient will be started on heparin infusion today on 08/06/2021 #3. Leukocytosis, rule out possibility of superimposed bacterial infection. Baricitinib be placed on hold on 08/06/2021 #4. Elevated d-dimer, lower extremity Dopplers were negative for DVT, patient is currently on Lovenox 60 mg twice daily #5. Elevated inflammatory markers secondary to COVID-19 pneumonia #6. Mild transaminitis secondary to viral pneumonia #7. Obesity with BMI of 50 kg/m Plan: Today's d-dimer remains elevated, CT chest was positive for pulmonary emboli Discontinue Lovenox we'll start the patient on heparin infusion Discontinue Baricitinib Send blood cultures, urinalysis, sputum culture We'll start Zosyn Continue monitoring for any worsening in dyspnea or hypoxia, Continue to closely follow his clinical course Overall prognosis is guarded I performed a history & physical examination of the patient and discussed their management with my nurse practitioner, Socorro Finnegan. I reviewed the nurse practitioner's note and agree with the documented findings and plan of care. Lung sounds are positive for diminished breath sounds with diffuse crackles throughout the lung stevens. The findings and the impression was discussed with the patient. I attest to the documentation by the nurse practitioner. Time with Patient: Less than 30
[2021-08-06 14:10] LABS: Basophils # (A) 0.1 k/uL (0-0.2); Basophils % (A) 1 %; Eosinophils # (A) 0.1 k/uL (0-0.7); Eosinophils % (A) 0 %; HCT 41.9 % (39.0-53.0); HGB 13.3 gm/dL (13.0-17.5); Lymphocytes # (A) 0.9 k/uL (1.0-4.8); Lymphocytes % (A) 5 %; MCH 26.7 pg (25.0-35.0); MCHC 31.7 g/dL (31.0-37.0); MCV 84.4 fL (80.0-100.0); Mean Platelet Volume 11.1; Monocytes # (A) 0.4 k/uL (0-1.0); Monocytes % (A) 3 %; Neutrophils # (A) 15.8 k/uL (1.3-7.7); Neutrophils % (A) 91 %; Platelet Count 240 k/uL (150-450); RBC 4.96 m/uL (4.30-5.90); RDW 13.9 % (11.5-15.5); WBC 17.4 k/uL (3.8-10.6)
[2021-08-06 16:21] LABS: Glucose,Whole Blood 114 mg/dL (75-99)
[2021-08-06] MEDS: PIPERACILLIN-TAZOBACTAM 3.375 GM in SODIUM CHLORIDE 0.9% 100 ML IVPB SCH (20:18)
[2021-08-06] MEDS: ALPRAZolam 0.5 MG TAB PO PRN (20:18)
[2021-08-07] MEDS: hydrALAZINE HCL 25 MG TAB PO PRN (00:17)
[2021-08-07] MEDS ORDERED: DEXMEDETOMIDINE/0.9% NACL(PMX) 400 MCG in EMPTY BAG 1 BAG IV SCH (01:00)
[2021-08-07] MEDS ORDERED: propofoL 100 ML IV ONE (02:49)
[2021-08-07] MEDS ORDERED: fentaNYL (PF). 1,000 MCG in SODIUM CHLORIDE 0.9% 80 ML IV SCH (03:00)
[2021-08-07] MEDS ORDERED: NALOXONE 0.4 MG/ML 1 ML VIAL IV PRN (03:00)
[2021-08-07 03:59] LABS: Appearance,Urine Clear (Clear); Bilirubin,Urine Negative (Negative); Blood,Urine Negative (Negative); Color,Urine Yellow; Glucose,Urine (UA) Negative (Negative); Ketones,Urine 1+ (Negative); Leukocyte Esterase,Urine Negative (Negative); Mucus,Urine Rare /hpf; Nitrite,Urine Negative (Negative); PH, Urine 5.5 (5.0-8.0); Protein,Urine 1+ (Negative); RBC,Urine <1 /hpf (0-5); Specific Gravity,Urine 1.021 (1.001-1.035); Urobilinogen,Urine <2.0 mg/dL (<2.0)
--- NOTE | 2021-08-07 04:01 | XR ---
EXAMINATION TYPE: XR chest 1V portable DATE OF EXAM: 08/07/2021 COMPARISON: 08/04/2021 HISTORY: Tube placement TECHNIQUE: FINDINGS: There is endotracheal tube 4 cm from the delmer. There is pulmonary interstitial moderate e kathia. Heart appears enlarged. There is some airspace infiltrate and consolidation left lower lobe. Th ere are chest leads. Trachea is midline. There is nasogastric tube in the stomach. IMPRESSION: There is pulmonary edema which is increased compared to recent exam. There is increasing left lower lobe pneumonia.
[2021-08-07] MEDS ORDERED: CISATRACURIUM 2 MG/ML 5 ML VIAL IV ONE (04:06)
[2021-08-07] MEDS: CISATRACURIUM 200 MG in SODIUM CHLORIDE 0.9% 180 ML IV SCH ×2 (04:16→21:44)
[2021-08-07 04:35] LABS: Basophils # (A) 0.1 k/uL (0-0.2); Basophils % (A) 1 %; Eosinophils # (A) 0.2 k/uL (0-0.7); Eosinophils % (A) 1 %; HCT 37.8 % (39.0-53.0); HGB 11.9 gm/dL (13.0-17.5); Lymphocytes # (A) 1.2 k/uL (1.0-4.8); Lymphocytes % (A) 6 %; MCHC 31.5 g/dL (31.0-37.0); MCV 85.6 fL (80.0-100.0); Mean Platelet Volume 10.1; Monocytes # (A) 0.4 k/uL (0-1.0); Monocytes % (A) 2 %; Neutrophils % (A) 90 %; Platelet Count 227 k/uL (150-450); RBC 4.42 m/uL (4.30-5.90); RDW 13.8 % (11.5-15.5)
[2021-08-07 04:49] LABS: ALT 40 U/L (4-49); AST 42 U/L (17-59); African American GFR (CKD) >90 (>60 ml/min/1.73 sqM); Albumin 2.8 g/dL (3.5-5.0); Alkaline Phosphatase 68 U/L (38-126); Anion Gap 8 mmol/L; Blood Urea Nitrogen 28 mg/dL (9-20); Calcium 8.5 mg/dL (8.4-10.2); Carbon Dioxide 26 mmol/L (22-30); Chloride 98 mmol/L (98-107); Glucose 96 mg/dL (74-99); Magnesium 2.1 mg/dL (1.6-2.3); Non-African American GFR(CKD) >90 (>60 ml/min/1.73 sqM); Potassium 5.1 mmol/L (3.5-5.1); Sodium 132 mmol/L (137-145); Total Bilirubin 0.5 mg/dL (0.2-1.3); Total Protein 5.4 g/dL (6.3-8.2)
[2021-08-07 06:08] LABS: ABG Base Excess -0.8 mmol/L; ABG HCO3 26 mmol/L (21-25); ABG Oxygen Saturation 96.1 % (94-97); ABG PCO2 57 mmHg (35-45); ABG PH 7.27 (7.35-7.45); ABG PO2 99 mmHg (83-108); ABG TCO2 28 mmol/L (19-24); Allen Test Performed? Yes
[2021-08-07] MEDS: fentaNYL (PF). 2,500 MCG in SODIUM CHLORIDE 0.9% 200 ML IV SCH (06:30)
[2021-08-07] MEDS: PIPERACILLIN-TAZOBACTAM 3.375 GM in SODIUM CHLORIDE 0.9% 100 ML IVPB SCH ×3 (06:34→21:28)
[2021-08-07] MEDS: SODIUM CHLORIDE 0.9% 1,000 ML IV SCH ×2 (06:35→23:39)
[2021-08-07] MEDS: ALBUTEROL HFA INHALER INHALATION PRN ×2 (08:11→15:41)
[2021-08-07] MEDS: HEPARIN SODIUM 1,000 UN/ML (10ML VL) IV PRN (08:23)
[2021-08-07] MEDS: HEPARIN SOD,PORK IN 0.45% NACL 25,000 UNIT in 0.45% NACL 1 250ML.BAG IV SCH ×2 (08:27→21:26)
--- NOTE | 2021-08-07 10:27 | P.PN ---
Subjective This is a pleasant 31 years old -[place] man with no significant past medical history presents with dyspnea which started yesterday associated with fever and coughing. Patient tested positive for covid earlier on Thursday after he felt with fever and cough on Thursday but at that time he was not dyspneic. He denies chest pain or abdominal pain but he has diarrhea on and off. No vomiting. He is saturating 89% on 6 L oxygen via nasal cannula, afebrile. Tachypneic with a breathing rate at 23. CBC, is unremarkable. INR is normal at 1.0. Sodium is 1:30, creatinine normal at 1.1, glucose 103. AST is mildly elevated 106 and ALT mildly elevated 106. Elevated lactate dehydrogenase 2600 and C-reactive protein 20.3. Cholelithiasis positive EKG shows sinus tachycardia and [address]-T changes Chest x-ray showing bilateral infiltrates 08/01/2021 Patient sitting at bedside using 50 L of oxygen via nonrebreather. Reports slight improvement in his breathing and his chest x-ray showing somewhat improvement in that area should on both sides. He has low-grade fever today at 200. Blood pressure is stable. D-dimer is 1.87. BMP is unremarkable, liver enzymes slightly trending down. LDH slightly down at 2437 and slightly decreased and C-reactive protein 16.7. CBC and pro-calcitonin are pending Sputum and blood culture are still pending He remains on multiple vitamins, Baricitinib, dexamethasone and normal saline at 75 mL/h. Also he is on Lovenox. Norvasc is added for blood pressure control also we will add metoprolol Subjective: 08/05/21 patient still with dyspnea requiring BiPAP most of the time. He is developing fever of 101.7 today. Blood pressure 157/91. He has leukocytosis 19.1.liver enzymes Are the same. LDH elevated 2935 and C- reactive protein 18.2 his still on multiple vitamins, Baricitinib, dexamethasone and normal saline at 50 mL/h. Also he is on Lovenox therapeutic dose after his d-dimer yesterday. 08/06/2021 Patient remains on BiPAP needing higher pressures 14/8 and FiO2 of 100%. Also history of chronic fever around 100 and pro-calcitonin elevated at 0.40. This left leukocytosis around 22, LDH and C-reactive protein still elevated. D- dimer is trending down to 8.5 and CTA of the chest today showing negative for PE but bilateral groundglass opacity. Sputum culture 2 is negative. Urine analysis is negative for infection Today patient SWITCHED to heparin drip. Also he was started on Zosyn. Also dexamethasone 6 mg daily and normal saline at 50 mL per hour. Discontinue B aricitinib per pulmonary 08/07/2021 Patient respiratory status got worse and eventually patient got intubated while he is in the ICU. Pulmonary/critical care team following the patient closely and help with vent management. He has a fever of 100. Breathing rate around 29. Blood pressure is stable. WBC down to 19 K, Patient is acidotic with pH of 7.2, pCO2 of 57 which is low and high pO2 of 99. Chest x-ray showed increasing bilateral infiltrate and left lower lobe pneumonia. Repeat sputum culture is pending. First 2 samples were negative He remains on Zosyn, dexamethasone, normal saline at 50 mL per hour , heparin drip, multiple vitamins Review of systems: n/a Active Medications Generic Name Dose Route Start Last Admin Trade Name Freq PRN Reason Stop Dose Admin Acetaminophen 650 mg 08/01/21 11:32 08/06/21 07:44 Acetaminophen Tab 325 Mg Tab PO 650 mg Q4HR PRN Administration Fever and/ or Pain Albuterol Sulfate 2 puff 07/31/21 17:21 08/07/21 08:11 Albuterol Hfa Inhaler INHALATION 2 puff RT-QID PRN Administration Shortness Of Breath Or Wheezing Amlodipine Besylate 5 mg 07/31/21 17:30 08/06/21 07:30 Amlodipine 5 Mg Tab PO 5 mg DAILY MARGARITA Administration Ascorbic Acid 1,000 mg 07/31/21 09:00 08/06/21 07:31 Ascorbic Acid 500 Mg Tab PO 1,000 mg DAILY MARGARITA Administration Chlorhexidine Gluconate 15 ml 08/07/21 09:00 Chlorhexidine Gluconate 15 Ml Cup MUCOUS MEM BID MARGARITA Cholecalciferol 50 mcg 07/31/21 09:00 08/06/21 07:31 Cholecalciferol 25 Mcg (1000 Iu) Tablet PO 50 mcg DAILY MARGARITA Administration Dexamethasone Sodium Phosphate 6 mg 07/31/21 09:00 08/06/21 07:29 Dexamethasone Sod Phosphate 10 Mg/Ml 1 Ml Vial IV 6 mg DAILY MARGARITA Administration Heparin Sodium (Porcine) 0 unit 08/06/21 12:29 08/07/21 08:23 Heparin Sodium 1,000 Un/Ml (10ml Vl) IV 4,800 unit PER PROTOCOL PRN Administration Low PTT Protocol Hydralazine HCl 25 mg 07/31/21 20:32 08/07/21 00:17 Hydralazine Hcl 25 Mg Tab PO 25 mg QID PRN Administration Blood Pressure - High Sodium Chloride 1,000 mls @ 50 mls/hr 07/31/21 04:30 08/07/21 06:35 Saline 0.9% IV Not Given .Q20H MARGARITA Heparin Sodium/Sodium Chloride 250 mls @ 23 mls/hr 08/06/21 12:30 08/07/21 08:39 25,000 unit/ Sodium Chloride IV 0 units/kg/hr .[id number] MARGARITA 0 mls/hr Titration Protocol 17.485 UNITS/KG/HR Piperacillin Sod/Tazobactam 100 mls @ 25 mls/hr 08/06/21 20:00 08/07/21 06:34 Sod 3.375 gm/ Sodium Chloride IVPB Not Given Q8H MARGARITA Propofol 1,000 mg/ IV Solution 100 mls @ 0 mls/hr 08/07/21 03:00 08/07/21 08:56 IV 50 mcg/kg/min .Q0M MARGARITA 36 mls/hr Titration Protocol Titrate Cisatracurium Besylate 200 mg/ 200 mls @ 7.893 mls/hr 08/07/21 04:15 08/07/21 08:15 Sodium Chloride IV 1 mcg/kg/min .Q24H MARGARITA 7.893 mls/hr Titration Protocol 1 MCG/KG/MIN Fentanyl Citrate 2,500 mcg/ 250 mls @ 6.577 mls/hr 08/07/21 04:30 08/07/21 08:56 Sodium Chloride IV 0.25 mcg/kg/hr .Q24H MARGARITA 3.289 mls/hr Titration Protocol 0.5 MCG/KG/HR Lisinopril 5 mg 08/05/21 01:35 08/06/21 07:30 Lisinopril 5 Mg Tab PO 5 mg DAILY MARGARITA Administration Metoprolol Tartrate 25 mg 08/01/21 12:00 08/06/21 20:18 Metoprolol Tartrate 25 Mg Tab PO 25 mg BID MARGARITA Administration Naloxone HCl 0.2 mg 08/07/21 03:00 Naloxone 0.4 Mg/Ml 1 Ml Vial IV Q2M PRN Opioid Reversal Pantoprazole Sodium 40 mg 08/07/21 09:15 Pantoprazole 40 Mg/10 Ml Vial IVP DAILY MARGARITA Zinc Sulfate 220 mg 07/31/21 09:00 08/06/21 07:30 Zinc Sulfate 220 Mg Cap PO 220 mg DAILY MARGARITA Administration Objective - Vital Signs Vital signs: Vital Signs Temp 98.9 F 08/06/21 20:00 Pulse 86 08/07/21 08:00 Resp 29 H 08/07/21 08:00 BP 82/51 08/07/21 08:00 Pulse Ox 92 L 08/07/21 08:00 Intake & Output 08/06/21 08/07/21 08/07/21 18:59 06:59 18:59 Intake Total 100 1013.907 534.322 Output Total 1050 1500 70 Balance -950 -486.093 464.322 Weight 120 kg Intake: IV 100 700 100 Piperacillin-Tazobactam 3 100 .375 gm In Sodium Chloride 0.9% 100 ml @ 25 mls/hr IVPB Q8H MARGARITA Rx#: [id number] Sodium Chloride 0.9% 1, 100 600 100 000 ml @ 50 mls/hr IV . Q20H MARGARITA Rx#:[id number] Intake, IV Titration 293.907 434.322 Amount Cisatracurium 200 mg In 3.157 56.563 Sodium Chloride 0.9% 180 ml @ 1 MCG/KG/MIN 7.893 mls/hr IV .Q24H MARGARITA Rx#: [id number] Dexmedetomidine/0.9% NaCl 41.163 (Pmx) 400 mcg In Empty Bag 1 bag @ 0.2 MCG/KG/HR 6.577 mls/hr IV .[id number] MARGARITA Rx#:[id number] Heparin Sod,Pork in 0.45% 208.150 231.335 NaCl 25,000 unit In 0.45 % NaCl 1 250ml.bag @ 17. 485 UNITS/KG/HR 23 mls/hr IV .[id number] MARGARITA Rx#: [id number] fentaNYL (PF). 1,000 mcg 7.235 In Sodium Chloride 0.9% 80 ml @ 0.5 MCG/KG/HR 6. 577 mls/hr IV .[id number] MARGARITA Rx#:[id number] fentaNYL (PF). 2,500 mcg 16.004 In Sodium Chloride 0.9% 200 ml @ 0.5 MCG/KG/HR 6. 577 mls/hr IV .Q24H MARGARITA Rx#:[id number] propofoL 1,000 mg In 34.202 130.42 Empty Bag 1 bag @ Titrate IV .Q0M MARGARITA Rx#: [id number] Oral 20 Output: Urine 1050 1500 70 Other: Voiding Method Indwelling Catheter - Exam -GENERAL: The patient is intubated and sedated, not in any acute distress. Obese HEENT: Pupils are round and equally reacting to light. EOMI. No scleral icterus. No conjunctival pallor. Normocephalic, atraumatic. No pharyngeal erythema. No thyromegaly. CARDIOVASCULAR: S1 and S2 present. No murmurs, rubs, or gallops. -PULMONARY: Chest is clear to auscultation, no wheezing bilateral crepitation, tachypnea ABDOMEN: Soft, nontender, nondistended, normoactive bowel sounds. No palpable organomegaly. MUSCULOSKELETAL: No joint swelling or deformity. EXTREMITIES: No cyanosis, clubbing, or pedal edema. NEUROLOGICAL: Gross neurological examination did not reveal any focal deficits. SKIN: No rashes. No petechiae - Labs CBC & Chem 7: 08/07/21 03:48 08/07/21 03:48 Labs: Abnormal Lab Results - Last 24 Hours (Table) 08/06/21 08/06/21 08/06/21 Range/Units 11:34 12:43 16:19 WBC 17.4 H (3.8-10.6) k/uL Hgb (13.0-17.5) gm/dL Hct (39.0-53.0) % Neutrophils # 15.8 H (1.3-7.7) k/uL Lymphocytes # 0.9 L (1.0-4.8) k/uL APTT (22.0-30.0) sec ABG pH (7.35-7.45) ABG pCO2 (35-45) mmHg ABG HCO3 (21-25) mmol/L ABG Total CO2 (19-24) mmol/L Sodium (137-145) mmol/L BUN (9-20) mg/dL POC Glucose (mg/dL) 114 H (75-99) mg/dL Total Protein (6.3-8.2) g/dL Albumin (3.5-5.0) g/dL Urine Protein 1+ H (Negative) Urine Ketones 1+ H (Negative) Urine Blood Small H (Negative) Urine Mucus Rare H (None) /hpf 08/06/21 08/07/21 08/07/21 Range/Units 21:00 03:40 03:48 WBC (3.8-10.6) k/uL Hgb (13.0-17.5) gm/dL Hct (39.0-53.0) % Neutrophils # (1.3-7.7) k/uL Lymphocytes # (1.0-4.8) k/uL APTT 50.1 H (22.0-30.0) sec ABG pH (7.35-7.45) ABG pCO2 (35-45) mmHg ABG HCO3 (21-25) mmol/L ABG Total CO2 (19-24) mmol/L Sodium 132 L (137-145) mmol/L BUN 28 H (9-20) mg/dL POC Glucose (mg/dL) (75-99) mg/dL Total Protein 5.4 L (6.3-8.2) g/dL Albumin 2.8 L (3.5-5.0) g/dL Urine Protein 1+ H (Negative) Urine Ketones 1+ H (Negative) Urine Blood (Negative) Urine Mucus Rare H (None) /hpf 08/07/21 08/07/21 08/07/21 Range/Units 03:48 03:48 06:06 WBC 19.0 H (3.8-10.6) k/uL Hgb 11.9 L (13.0-17.5) gm/dL Hct 37.8 L (39.0-53.0) % Neutrophils # 17.0 H (1.3-7.7) k/uL Lymphocytes # (1.0-4.8) k/uL APTT 37.9 H (22.0-30.0) sec ABG pH 7.27 L (7.35-7.45) ABG pCO2 57 H (35-45) mmHg ABG HCO3 26 H (21-25) mmol/L ABG Total CO2 28 H (19-24) mmol/L Sodium (137-145) mmol/L BUN (9-20) mg/dL POC Glucose (mg/dL) (75-99) mg/dL Total Protein (6.3-8.2) g/dL Albumin (3.5-5.0) g/dL Urine Protein (Negative) Urine Ketones (Negative) Urine Blood (Negative) Urine Mucus (None) /hpf Microbiology - Last 24 Hours (Table) 08/06/21 17:00 Gram Stain - Preliminary Sputum Sputum Culture - Preliminary Assessment and Plan Assessment: Acute bilateral Covid pneumonia, with suspected bacterial superinfection mainly in the left lower lobe Acute hypoxic respiratory failure, even intubation and mechanical ventilation Elevated inflammatory markers Elevated d-dimer Obesity with BMI of 49.8 Plan: This is a pleasant 31 years old male who presents with bilateral Covid pneumonia and hypoxia. Continue with oxygen as needed. Continue With dexamethasone . Continue with vitamin C, vitamin D and zinc. Discontinue Baricitinib c/w heparin drip. Discontinue Lovenox Continue with Zosyn Pulmonary/critical care team consult. Vent management Labs and medication were reviewed.. Continue same treatment. Continue with symptomatic treatment. Resume home medication. Monitor lytes and vitals. DVT and GI prophylaxis. Further recommendations depends on the clinical course of the patient DVT prophylaxis: Heparin drip GI Prophylaxis: Protonix Prognosis is guarded
[2021-08-07] MEDS ORDERED: SODIUM CHLORIDE 0.9% 1,000 ML IV ONE (10:32)
[2021-08-07] MEDS: lisinopriL 5 MG TAB PO SCH (10:41)
[2021-08-07] MEDS: amLODIPine 5 MG TAB PO SCH (10:41)
[2021-08-07] MEDS: ZINC SULFATE 220 MG CAP PO SCH (10:42)
[2021-08-07] MEDS: ASCORBIC ACID 500 MG TAB PO SCH (10:42)
[2021-08-07] MEDS: CHLORHEXIDINE GLUCONATE 15 ML CUP MUCOUS MEM SCH ×2 (10:42→21:25)
[2021-08-07] MEDS: METOPROLOL TARTRATE 25 MG TAB PO SCH ×2 (10:43→21:26)
[2021-08-07] MEDS: DEXAMETHASONE SOD PHOSPHATE 10 MG/ML 1 ML VIAL IV SCH (10:43)
[2021-08-07] MEDS: CHOLECALCIFEROL 25 MCG (1000 IU) TABLET PO SCH (10:43)
[2021-08-07] MEDS: PANTOPRAZOLE 40 MG/10 ML VIAL IVP SCH (10:51)
[2021-08-07] MEDS ORDERED: LIDOCAINE 1% INJ 10MG/ML (20 ML MDV) ONE (11:40)
--- NOTE | 2021-08-07 12:04 | P.PN ---
Subjective Progress Note Date: 08/07/21 Principal diagnosis: Acute hypoxic respiratory failure secondary to COVID-19 pneumonia On today's evaluation patient is seen in follow-up on 08/05/2021, he is currently on BiPAP support with pressure of 14/8, and the pulse ox is 87-93%, patient does alternate with Airvo at 60 L and 90% FiO2, and at bedtime and as needed for periods of time during the day he does go on BiPAP. He is awake and alert, he sitting up on the edge of the bed, dyspneic with exertion, but no acute distress, he remains on Bicitra neb, he is on IV Decadron, Lovenox 60 mg twice daily, he is on 0.9 normal saline at a rate of 50 ML per hour, he is on multivitamins, his latest chest x-ray from 08/04/2021 showed improved inspiration, improved right basilar focal consolidation, and persistent bilateral diffuse reticulonodular opacities in the lower lungs consistent with known COVID-19 infection. Today's labs have been reviewed, his white blood cell count is 19.1, hemoglobin is 13.1, d-dimer is 14.3, sodium is 133, the rest of electrolytes and renal profile were fairly unremarkable, his inflammatory markers are relatively stable and LDH is 2935, and CRP is 18.2, pro calcitonin level is slightly improved and is down to 0.40. His blood and sputum cultures have shown no growth. He did have a fever with a temp of 101.7F. Currently afebrile. No complaints of chest discomfort. No hemoptysis, his lower extremity Dopplers were negative for DVT. On 08/06/2021 patient seen in follow-up on medical surgical floor. Patient still requiring high flow oxygen per Airvo, and he is requiring BiPAP support most of time with pressures of 14/88 and FiO2 of 100% and his pulse ox is 87- 90%, he continues to have fevers, with a T-max 101.7F, overnight his fever pattern has improved and he still having some low-grade fevers. He is short of breath with any exertion. He continues on Decadron 6 mg daily, Baricitinib, and Lovenox at intermediate dosing at 0.5 mg/kg twice daily which is above 60 mg twice daily for this patient's weight. His d-dimer is down to 8.58 on today's labs, improved although still significantly elevated, lower extremity Dopplers were negative for any evidence of DVT. There is concern for superimposed bacterial infection, especially in view of fever, and elevated white blood cell count. Today's white count is 22.1, hemoglobin is 13, sodium is 131, rest of electrolytes were within normal limits, B1 is 27 creatinine 0.89, pro Level Was Borderline at 0.40, Also Suggestive of a Possible Super Imposed Bacterial Infection. Patient was transferred yesterday to the ICU, and around 2 AM this morning, I was notified about this patient is not doing well. Patient was noted to be desaturating, anxious, tachycardic, and patient did not improve much with Precedex. Hence I recommended intubating the patient. Patient was intubated by JILL, trace on mechanical ventilation, and he is now on assist control rate of 38, tidal volume of 375 100% FiO2 and PEEP is 18. His ABG showed a pO2 of 99 pCO2 57 pH of 7.27. Patient is on multiple drips including propofol at 50 f entanyl at 0.25 mcg/kg/h, Nimbex at 1 and he is on IV fluid 0.9 normal saline at 50 mL per hour. Patient was actually intubated around 2:45 AM this morning. Reviewed his chest x-ray, clearly showed bilateral infiltrates, consistent with COVID-19 pneumonia. His endotracheal tube is in the proper position. And his orogastric tube is also in the proper position. After reviewing his ABG, I cut down his FiO2 to 90%, may consider going higher on the PEEP, may also consider placing the patient in prone position. I have consulted interventional radiology for a PICC line placement, and I went ahead and placed a right radial arterial line. Patient will be off heparin for a couple of hours prior to the PICC line placement. I reviewed his CT angiogram of the chest from yesterday, the minor evidence of pulmonary embolism is not clinically impressive, however nonetheless the patient will need to be heparinized noticing that he has elevated d-dimer and the fact that he has COVID-19 pneumonia which is a major provoking factor for thrombus embolic disease. WBC count today is 19 hemoglobin is 11.9 his PTT was therapeutic initially at 50.1, and this morning it is 37.9, patient received a heparin bolus. Electrolytes are normal potassium is 5.1 BUN is 28 creatinine is 1.03. Medications espinoza, patient is on albuterol, amlodipine, vitamin C, Peridex, vitamin D, Nimbex, Decadron 6 mg IV push daily, fentanyl, heparin, hydralazine, metoprolol, lisinopril, Protonix, Zosyn, and zinc. Used to be on baricitimib, however because of his leukocytosis and elevated pro calcitonin, this was discontinued, and we started the patient empirically on antibiotics. Blood cultures and sputum cultures so far are negative. And they seem to be nondiagnostic so far. At one point, the patient was spiking fevers, his T-max yesterday was 99.1. Objective - Vital Signs Vital signs: Vital Signs Temp 99.1 F 08/07/21 08:00 Pulse 93 08/07/21 11:00 Resp 38 H 08/07/21 11:00 BP 96/54 08/07/21 10:00 Pulse Ox 90 L 08/07/21 11:00 Intake & Output 08/06/21 08/07/21 08/07/21 18:59 06:59 18:59 Intake Total 100 1013.907 753.902 Output Total 1050 1500 150 Balance -950 -486.093 603.902 Weight 120 kg Intake: IV 100 700 250 Piperacillin-Tazobactam 3 100 .375 gm In Sodium Chloride 0.9% 100 ml @ 25 mls/hr IVPB Q8H MARGARITA Rx#: [id number] Sodium Chloride 0.9% 1, 100 600 250 000 ml @ 50 mls/hr IV . Q20H MARGARITA Rx#:[id number] Intake, IV Titration 293.907 503.902 Amount Cisatracurium 200 mg In 3.157 56.563 Sodium Chloride 0.9% 180 ml @ 1 MCG/KG/MIN 7.893 mls/hr IV .Q24H MARGARITA Rx#: [id number] Dexmedetomidine/0.9% NaCl 41.163 (Pmx) 400 mcg In Empty Bag 1 bag @ 0.2 MCG/KG/HR 6.577 mls/hr IV .[id number] MARGARITA Rx#:[id number] Heparin Sod,Pork in 0.45% 208.150 231.335 NaCl 25,000 unit In 0.45 % NaCl 1 250ml.bag @ 17. 485 UNITS/KG/HR 23 mls/hr IV .[id number] MARGARITA Rx#: [id number] fentaNYL (PF). 1,000 mcg 7.235 In Sodium Chloride 0.9% 80 ml @ 0.5 MCG/KG/HR 6. 577 mls/hr IV .[id number] MARGARITA Rx#:[id number] fentaNYL (PF). 2,500 mcg 16.004 In Sodium Chloride 0.9% 200 ml @ 0.5 MCG/KG/HR 6. 577 mls/hr IV .Q24H MARGARITA Rx#:[id number] propofoL 1,000 mg In 34.202 200.00 Empty Bag 1 bag @ Titrate IV .Q0M MARGARITA Rx#: [id number] Oral 20 Output: Urine 1050 1500 150 Other: Voiding Method Indwelling Catheter ABP, PAP, CO, CI - Last Documented Arterial Blood Pressure 135/65 - Exam Physical Exam: Revealed 31-year-old -[place] male, on mechanical ventilation, sedated and paralyzed. Head: Atraumatic, normocephalic. HEENT: Short obese neck. [Neck is supple.] [No neck masses.] [No thyromegaly.] [No JVD.] Endotracheal tube and orogastric tube are intact. Chest: [Symmetrical chest expansion, crackles at the bases, no rhonchi and no wheezes. Cardiac Exam: Distant S1 and S2, no S3 gallop, no murmur. Abdomen: [Obese, soft, nontender, no megaly, no rebound, no guarding. Extremities: No clubbing, trace of edema, no cyanosis. Neurological Exam: Cannot assess, patient is on sedatives, narcotics, and paralytics. Psychiatric: Could not be assessed as noted above. Musculoskeletal: No deformities, could not assess range of motion. Skin: No rashes. - Labs CBC & Chem 7: 08/07/21 03:48 08/07/21 03:48 Labs: Abnormal Lab Results - Last 24 Hours (Table) 08/06/21 08/06/21 08/06/21 Range/Units 11:34 12:43 16:19 WBC 17.4 H (3.8-10.6) k/uL Hgb (13.0-17.5) gm/dL Hct (39.0-53.0) % Neutrophils # 15.8 H (1.3-7.7) k/uL Lymphocytes # 0.9 L (1.0-4.8) k/uL APTT (22.0-30.0) sec ABG pH (7.35-7.45) ABG pCO2 (35-45) mmHg ABG HCO3 (21-25) mmol/L ABG Total CO2 (19-24) mmol/L Sodium (137-145) mmol/L BUN (9-20) mg/dL POC Glucose (mg/dL) 114 H (75-99) mg/dL Total Protein (6.3-8.2) g/dL Albumin (3.5-5.0) g/dL Urine Protein 1+ H (Negative) Urine Ketones 1+ H (Negative) Urine Blood Small H (Negative) Urine Mucus Rare H (None) /hpf 08/06/21 08/07/21 08/07/21 Range/Units 21:00 03:40 03:48 WBC (3.8-10.6) k/uL Hgb (13.0-17.5) gm/dL Hct (39.0-53.0) % Neutrophils # (1.3-7.7) k/uL Lymphocytes # (1.0-4.8) k/uL APTT 50.1 H (22.0-30.0) sec ABG pH (7.35-7.45) ABG pCO2 (35-45) mmHg ABG HCO3 (21-25) mmol/L ABG Total CO2 (19-24) mmol/L Sodium 132 L (137-145) mmol/L BUN 28 H (9-20) mg/dL POC Glucose (mg/dL) (75-99) mg/dL Total Protein 5.4 L (6.3-8.2) g/dL Albumin 2.8 L (3.5-5.0) g/dL Urine Protein 1+ H (Negative) Urine Ketones 1+ H (Negative) Urine Blood (Negative) Urine Mucus Rare H (None) /hpf 08/07/21 08/07/21 08/07/21 Range/Units 03:48 03:48 06:06 WBC 19.0 H (3.8-10.6) k/uL Hgb 11.9 L (13.0-17.5) gm/dL Hct 37.8 L (39.0-53.0) % Neutrophils # 17.0 H (1.3-7.7) k/uL Lymphocytes # (1.0-4.8) k/uL APTT 37.9 H (22.0-30.0) sec ABG pH 7.27 L (7.35-7.45) ABG pCO2 57 H (35-45) mmHg ABG HCO3 26 H (21-25) mmol/L ABG Total CO2 28 H (19-24) mmol/L Sodium (137-145) mmol/L BUN (9-20) mg/dL POC Glucose (mg/dL) (75-99) mg/dL Total Protein (6.3-8.2) g/dL Albumin (3.5-5.0) g/dL Urine Protein (Negative) Urine Ketones (Negative) Urine Blood (Negative) Urine Mucus (None) /hpf Microbiology - Last 24 Hours (Table) 08/06/21 17:00 Gram Stain - Preliminary Sputum Sputum Culture - Preliminary Assessment and Plan Assessment: Acute hypoxic respiratory failure secondary to worsening COVID-19 pneumonia, patient was initially admitted on 07/31, required airvo with high flow oxygen and later BiPAP, and his clinical condition deteriorated gradually, required intubation and mechanical ventilation this morning 08/07/2021. Patient was initially on baricitinib, however because of his intermittent fevers and elevated pro calcitonin level, he was placed on Zosyn, and baricitinib was discontinued. Acute or possibly subacute pulmonary embolism with at least 2 nonobstructing thrombosis in the right lung, remains on heparin. Leukocytosis, possibility of superimposed bacterial infection is not entirely ruled out, however cultures remain negative so far. Elevated d-dimer with negative Doppler for DVT. However considering his abnor mal CT angiogram of the chest, patient remains on heparin/therapeutic. Elevated inflammatory markers secondary to COVID-19 pneumonia Elevated liver enzymes secondary to viral over 19 pneumonia Morbid obesity with BMI of 45.4. Recommendation: Continue ventilatory support. Continue heparin infusion Continue empiric antibiotics. Continue sedatives and paralytics Titrate oxygen accordingly and adjust PEEP continue gi prophylaxis enteral feedings prone position once lines are established prognosis is guarded critical care time over 30 minutes not icluding time on procedures Time with Patient: Greater than 30
[2021-08-07] MEDS ORDERED: LIDOCAINE 1% INJ 10MG/ML (20 ML MDV) SQ ONE (12:24)
--- NOTE | 2021-08-07 12:51 | XR ---
EXAMINATION TYPE: XR chest 1V confirm line [facility] DATE OF EXAM: 08/07/2021 COMPARISON: 08/07/2021 HISTORY: PICC line placement TECHNIQUE: Single frontal view of the chest is obtained. FINDINGS: Diffuse interstitial pattern with bilateral infiltrate and small effusion. ET and NG tube stable. Left-sided PICC line with the tip overlying the SVC. Heart size stable. IMPRESSION: 1. PICC line in good position. 2. Diffuse pleural-parenchymal changes correlate for diffuse pneumonia. Findings stable.
--- NOTE | 2021-08-07 15:44 | IR ---
PICC LINE PLACEMENT: HISTORY: Infection requiring long-term antibiotic therapy PROCEDURE: Ultrasound guidance of PICC line placement. GRAZING EXAMINER: Dr. Hadley. COMPLICATIONS: None ANESTHESIA: 1. 1% Lidocaine locally. FINDINGS/TECHNIQUE: The procedure was explained to the patient. The risks, complications, benefits and alternatives were discussed and any questions were answered. Informed consent was obtained. The patient was placed supine on the fluoroscopic table and prepped and draped in the usual sterile fas ion. Utilizing a 21 gauge needle and sonographic guidance, access in the left basilic vein was achi eved and there is placement of a 0.018 guidewire. The vein is patent. A 5-F. sheath was placed over the guidewire. The guidewire and dilator were removed and a 5-F. Double lumen PICC line was placed through the sheath with the chest x-ray confirming the tip at the level of the SVC. The sheath was r emoved, the catheter was flushed and sutured into position. The patient was stable throughout the pr ocedure and remained stable upon discharge from the Department of Radiology. The vein puncture was patent under ultrasound. A eldridge scale image was obtained to document patency of the vein punctured. All elements of the maximal barrier technique were utilized. IMPRESSION: 1. Successful PICC line placement under ultrasound performed bedside within the ICU.
--- NOTE | 2021-08-07 15:48 | XR ---
EXAMINATION TYPE: XR chest 1V portable DATE OF EXAM: 08/07/2021 COMPARISON: 08/07/2021 INDICATION: Short of breath TECHNIQUE: Single frontal view of the chest is obtained. FINDINGS: The heart size is normal. The pulmonary vasculature is prominent. Diffuse increased lung markings are present greater in the left lower lobe. Correlate for atypical pn eumonia and pulmonary edema. The PICC line entering on the left has the tip in the brachiocephalic vein superior vena cava junctio n region. Endotracheal tube tip is above the delmer. Nasogastric tube transverses the thorax. IMPRESSION: 1. Diffuse increased lung markings greater than left lung base can be compatible with atypical pneumo gilda or pulmonary edema. 2. Stable appearance of the left-sided PICC line with the tip in the region of the brachiocephalic ve in and superior vena cava junction.
--- NOTE | 2021-08-07 15:51 | OP ---
OPERATIVE REPORT OPERATIVE REPORT: Placement of a right radial arterial line. PREOPERATIVE DIAGNOSIS: Acute hypoxic respiratory failure secondary to Covid-19 pneumonia. POSTOPERATIVE DIAGNOSIS: Acute hypoxic respiratory failure secondary to Covid-19 pneumonia. ANESTHESIA: None deployed. PROCEDURE: The patient was placed in the supine position, the right naris was prepared in a sterile fashion and drapes were applied. The right radial artery was palpated, cannulated, and a guidewire was placed. A Cook's catheter was inserted over the guidewire, and the guidewire was removed. Good blood flow, good waveform noted. No complications. Line was secured using 3.0 silk sutures. MMODL / IJN: [id number] /
[2021-08-07 23:47] LABS: Glucose,Whole Blood 107 mg/dL (75-99)
[2021-08-08] MEDS: INSULIN ASPART (NovoLOG) 100 UNIT/ML VIAL SQ SCH ×5 (00:05→23:17)
[2021-08-08] MEDS ORDERED: SODIUM CHLORIDE 0.9% 1,000 ML IV ONE (02:09)
[2021-08-08] MEDS: PIPERACILLIN-TAZOBACTAM 3.375 GM in SODIUM CHLORIDE 0.9% 100 ML IVPB SCH ×3 (03:24→21:06)
[2021-08-08 05:03] LABS: ABG Base Excess -5.3 mmol/L; ABG HCO3 23 mmol/L (21-25); ABG Oxygen Saturation 99.4 % (94-97); ABG PCO2 56 mmHg (35-45); ABG PH 7.22 (7.35-7.45); ABG PO2 205 mmHg (83-108); ABG TCO2 24 mmol/L (19-24)
[2021-08-08 05:11] LABS: Glucose,Whole Blood 118 mg/dL (75-99)
[2021-08-08 05:27] LABS: Allen Test Performed? no
[2021-08-08 06:02] LABS: Basophils % (A) 0 %; Eosinophils % (A) 0 %; HCT 33.4 % (39.0-53.0); Hypochromasia Marked; Lymphocytes # (A) 0.8 k/uL (1.0-4.8); Lymphocytes % (A) 5 %; MCH 26.4 pg (25.0-35.0); MCHC 29.3 g/dL (31.0-37.0); Mean Platelet Volume 10.5; Monocytes # (A) 0.3 k/uL (0-1.0); Monocytes % (A) 2 %; Neutrophils # (A) 13.8 k/uL (1.3-7.7); Neutrophils % (A) 92 %; Platelet Count 230 k/uL (150-450); RBC 3.71 m/uL (4.30-5.90); RDW 13.8 % (11.5-15.5); WBC 15.1 k/uL (3.8-10.6)
[2021-08-08 06:05] LABS: Albumin 2.3 g/dL (3.5-5.0); Calcium 7.9 mg/dL (8.4-10.2); Potassium 5.6 mmol/L (3.5-5.1); Total Bilirubin 0.4 mg/dL (0.2-1.3); Total Protein 4.9 g/dL (6.3-8.2)
[2021-08-08 06:55] LABS: HGB 9.8 gm/dL (13.0-17.5)
[2021-08-08] MEDS: HEPARIN SOD,PORK IN 0.45% NACL 25,000 UNIT in 0.45% NACL 1 250ML.BAG IV SCH ×2 (07:25→18:29)
--- NOTE | 2021-08-08 07:48 | XR ---
EXAMINATION TYPE: XR chest 1V portable DATE OF EXAM: 08/08/2021 Comparison: 08/07/2021 Clinical History: 31 year-old male Tube placement Findings: ET tube satisfactory. NG tube courses below the diaphragm. Left PICC tip probably upper SVC level. He art normal size. Fine interstitial and patchy densities persist bilaterally, left greater than right. There may be slight improving aeration in the interval. Impression: Continued diffuse fine interstitial infiltrates, left greater than right, with slight improvement in aeration in the interval.
[2021-08-08] MEDS: ALBUTEROL HFA INHALER INHALATION PRN (08:05)
[2021-08-08] MEDS ORDERED: SODIUM BICARB 8.4% 50 ML SYR (1 MEQ/ML) IV STA (08:40)
[2021-08-08] MEDS: fentaNYL (PF). 2,500 MCG in SODIUM CHLORIDE 0.9% 200 ML IV SCH (08:55)
[2021-08-08] MEDS: DEXTROSE 5% IN WATER 1,000 ML with SODIUM BICARB (1 MEQ/ML) 150 ML IV SCH (08:55)
[2021-08-08] MEDS: CHOLECALCIFEROL 25 MCG (1000 IU) TABLET PO SCH (08:59)
[2021-08-08] MEDS: DEXAMETHASONE SOD PHOSPHATE 10 MG/ML 1 ML VIAL IV SCH (08:59)
[2021-08-08] MEDS: ZINC SULFATE 220 MG CAP PO SCH (08:59)
[2021-08-08] MEDS: ASCORBIC ACID 500 MG TAB PO SCH (08:59)
[2021-08-08] MEDS: CLEVIDIPINE BUTYRATE 25 MG in EMPTY BAG 1 BAG IV SCH (10:02)
[2021-08-08] MEDS: amLODIPine 5 MG TAB PO SCH (10:03)
[2021-08-08] MEDS: PANTOPRAZOLE 40 MG/10 ML VIAL IVP SCH ×2 (10:03→21:06)
[2021-08-08] MEDS: METOPROLOL TARTRATE 25 MG TAB PO SCH ×2 (10:03→21:06)
[2021-08-08] MEDS: CHLORHEXIDINE GLUCONATE 15 ML CUP MUCOUS MEM SCH ×2 (10:03→21:06)
[2021-08-08 12:16] LABS: Glucose,Whole Blood 131 mg/dL (75-99)
--- NOTE | 2021-08-08 12:49 | P.PN ---
Subjective Progress Note Date: 08/08/21 Principal diagnosis: Acute hypoxemic respiratory failure secondary to COVID-19 pneumonia On today's evaluation patient is seen in follow-up on 08/05/2021, he is currently on BiPAP support with pressure of 14/8, and the pulse ox is 87-93%, patient does alternate with Airvo at 60 L and 90% FiO2, and at bedtime and as needed for periods of time during the day he does go on BiPAP. He is awake and alert, he sitting up on the edge of the bed, dyspneic with exertion, but no acute distress, he remains on Bicitra neb, he is on IV Decadron, Lovenox 60 mg twice daily, he is on 0.9 normal saline at a rate of 50 ML per hour, he is on multivitamins, his latest chest x-ray from 08/04/2021 showed improved inspiration, improved right basilar focal consolidation, and persistent bilater al diffuse reticulonodular opacities in the lower lungs consistent with known COVID-19 infection. Today's labs have been reviewed, his white blood cell count is 19.1, hemoglobin is 13.1, d-dimer is 14.3, sodium is 133, the rest of electrolytes and renal profile were fairly unremarkable, his inflammatory markers are relatively stable and LDH is 2935, and CRP is 18.2, pro calcitonin level is slightly improved and is down to 0.40. His blood and sputum cultures have shown no growth. He did have a fever with a temp of 101.7F. Currently afebrile. No complaints of chest discomfort. No hemoptysis, his lower extremity Dopplers were negative for DVT. On 08/06/2021 patient seen in follow-up on medical surgical floor. Patient still requiring high flow oxygen per Airvo, and he is requiring BiPAP support most of time with pressures of 14/88 and FiO2 of 100% and his pulse ox is 87- 90%, he continues to have fevers, with a T-max 101.7F, overnight his fever pattern has improved and he still having some low-grade fevers. He is short of breath with any exertion. He continues on Decadron 6 mg daily, Baricitinib, and Lovenox at intermediate dosing at 0.5 mg/kg twice daily which is above 60 mg twice daily for this patient's weight. His d-dimer is down to 8.58 on today's labs, improved although still significantly elevated, lower extremity Dopplers were negative for any evidence of DVT. There is concern for superimposed bacterial infection, especially in view of fever, and elevated white blood cell count. Today's white count is 22.1, hemoglobin is 13, sodium is 131, rest of electrolytes were within normal limits, B1 is 27 creatinine 0.89, pro Level Was Borderline at 0.40, Also Suggestive of a Possible Super Imposed Bacterial Infection. Patient was transferred yesterday to the ICU, and around 2 AM this morning, I was notified about this patient is not doing well. Patient was noted to be desaturating, anxious, tachycardic, and patient did not improve much with Precedex. Hence I recommended intubating the patient. Patient was intubated by DEPARTMENT OF MATHEMATICS CHAIR, trace on mechanical ventilation, and he is now on assist control rate of 38, tidal volume of 375 100% FiO2 and PEEP is 18. His ABG showed a pO2 of 99 pCO2 57 pH of 7.27. Patient is on multiple drips including propofol at 50 fentanyl at 0.25 mcg/kg/h, Nimbex at 1 and he is on IV fluid 0.9 normal saline at 50 mL per hour. Patient was actually intubated around 2:45 AM this morning. Reviewed his chest x-ray, clearly showed bilateral infiltrates, consistent with COVID-19 pneumonia. His endotracheal tube is in the proper position. And his orogastric tube is also in the proper position. After reviewing his ABG, I cut down his FiO2 to 90%, may consider going higher on the PEEP, may also consider placing the patient in prone position. I have consulted interventional radiology for a PICC line placement, and I went ahead and placed a right radial arterial line. Patient will be off heparin for a couple of hours prior to the PICC line placement. I reviewed his CT angiogram of the chest from yesterday, the minor evidence of pulmonary embolism is not clinically impressive, however nonetheless the patient will need to be heparinized noticing that he has elevated d-dimer and the fact that he has COVID-19 pneumonia which is a major provoking factor for thrombus embolic disease. WBC count today is 19 hemoglobin is 11.9 his PTT was therapeutic initially at 50.1, and this morning it is 37.9, patient received a heparin bolus. Electrolytes are normal potassium is 5.1 BUN is 28 creatinine is 1.03. Medications espinoza, patient is on albuterol, amlodipine, vitamin C, Peridex, vitamin D, Nimbex, Decadron 6 mg IV push daily, fentanyl, heparin, hydralazine, metoprolol, lisinopril, Protonix, Zosyn, and zinc. Used to be on baricitimib, however because of his leukocytosis and elevated pro calcitonin, this was discontinued, and we started the patient empirically on antibiotics. Blood cultures and sputum cultures so far are negative. And they seem to be nondiagnostic so far. At one point, the patient was spiking fevers, his T-max yesterday was 99.1. The patient is seen today 08/08/2021 and follow-up in the intensive care unit. He remains intubated, sedated, paralyzed and on the mechanical ventilator. Current settings are assist control at a rate of 38, tidal volume 375, FiO2 100% and a PEEP of 18. Peak pressures of 35, plateau of 33. Morning blood gases revealed a PaO2 of 205, pCO2 56, pH 7.22. He remains in sinus tachycardia currently at 104. He is currently on propofol 50 mcg/kg/m, fentanyl at 0.25 mcg/kg per hour, Nimbex at 1 mcg/kg/m, heparin drip per weight-based protocol. 0.9 normal saline at 125 ML's per hour. Staff did attempt to prone the patient yesterday however he had a significant cuff leak, significant desaturations and had to be placed back in supine position almost immediately. Chest x-ray reveals continued diffuse fine interstitial infiltrates, left greater than right with possibly some slight improvement in aeration. Blood cultures reveal no growth. Sputum cultures reveal no growth. White count 15.1. Hemoglobin 9.8. Platelets 230. Lymphocytes 0.8. Sodium 133. Potassium 5.6. Bicarb 21. Creatinine 2.88. Blood glucose 118. AST 39. ALT 61. He is continued on Decadron, Zosyn, vitamin supplements. He is currently afebrile. Not requiring pressors. He is being nourished with vital AF at 20 ML's per hour. Objective - Vital Signs Vital signs: Vital Signs Temp 97.6 F 08/08/21 12:00 Pulse 91 08/08/21 12:00 Resp 38 H 08/08/21 12:00 BP 96/54 08/07/21 18:00 Pulse Ox 90 L 08/08/21 12:00 Intake & Output 08/07/21 08/08/21 08/08/21 18:59 06:59 18:59 Intake Total 2793.902 2949.855 1113.562 Output Total 505 398 725 Balance 2288.902 2551.855 388.562 Weight 120 kg 122.7 kg Intake: IV 2100 2175 475 0.9 NACL bolus 1000 Dextrose 5% in Water 1, 225 000 ml @ 75 mls/hr IV . [id number] MARGARITA with Sodium Bicarb (1 Meq/ml) 150 ml Rx#:[id number] Piperacillin-Tazobactam 3 500 325 .375 gm In Sodium Chloride 0.9% 100 ml @ 25 mls/hr IVPB Q8H [facility] Rx#: [id number] Sodium Chloride 0.9% 1, 600 850 250 000 ml @ 125 mls/hr IV . Q8H [facility] Rx#:[id number] Sodium Chloride 0.9% 1, 1000 000 ml @ 999 mls/hr IV . Q1H1M ONE Rx#:[id number] Intake, IV Titration 693.902 604.855 468.562 Amount Cisatracurium 200 mg In 56.563 106.424 Sodium Chloride 0.9% 180 ml @ 1 MCG/KG/MIN 7.893 mls/hr IV .Q24H [facility] Rx#: [id number] Heparin Sod,Pork in 0.45% 231.335 217.377 250 NaCl 25,000 unit In 0.45 % NaCl 1 250ml.bag @ 17. 485 UNITS/KG/HR 23 mls/hr IV .[id number] [facility] Rx#: [id number] fentaNYL (PF). 2,500 mcg 16.004 78.991 In Sodium Chloride 0.9% 200 ml @ 0.5 MCG/KG/HR 6. 577 mls/hr IV .Q24H [facility] Rx#:[id number] propofoL 1,000 mg In 390.00 281.054 139.571 Empty Bag 1 bag @ Titrate IV .Q0M [facility] Rx#: [id number] Tube Feeding 140 140 Other 30 30 Output: Urine 505 398 725 Other: Voiding Method Indwelling Catheter Indwelling Catheter Indwelling Catheter ABP, PAP, CO, CI - Last Documented Arterial Blood Pressure 112/58 - Exam GENERAL EXAM: Currently intubated, sedated, paralyzed 31-year-old male, on the mechanical ventilator and 100% FiO2 and a PEEP of 18.. HEAD: Normocephalic/atraumatic. EYES: Sluggish reaction of pupils, equal size. Conjunctiva pink, sclera white. NOSE: Clear with pink turbinates. THROAT: Oral endotracheal and gastric tube secured in place. No erythema or exudates. NECK: No masses, no JVD, no thyroid enlargement, no adenopathy. CHEST: No chest wall deformity. Symmetrical expansion. LUNGS: Equal air entry with bibasilar crackles CVS: Regular rate and rhythm, normal S1 and S2, no gallops, no murmurs, no rubs ABDOMEN: Soft, nontender. No hepatosplenomegaly, normal bowel sounds, no guarding or rigidity. EXTREMITIES: No clubbing, no edema, no cyanosis, 2+ pulses and upper and lower extremities. MUSCULOSKELETAL: Muscle strength and tone normal. SPINE: No scoliosis or deformity SKIN: No rashes CENTRAL NERVOUS SYSTEM: Sedated, paralyzed, tone is normal in all 4 extremities. PSYCHIATRIC: Unable to assess - Labs CBC & Chem 7: 08/08/21 05:08 08/08/21 05:08 Labs: Abnormal Lab Results - Last 24 Hours (Table) 08/07/21 08/07/21 08/08/21 Range/Units 18:45 23:46 05:02 WBC (3.8-10.6) k/uL RBC (4.30-5.90) m/uL Hgb (13.0-17.5) gm/dL Hct (39.0-53.0) % MCHC (31.0-37.0) g/dL Neutrophils # (1.3-7.7) k/uL Lymphocytes # (1.0-4.8) k/uL APTT 57.9 H (22.0-30.0) sec ABG pH 7.22 L (7.35-7.45) ABG pCO2 56 H (35-45) mmHg ABG pO2 205 H (83-108) mmHg ABG O2 Saturation 99.4 H (94-97) % Sodium (137-145) mmol/L Potassium (3.5-5.1) mmol/L Carbon Dioxide (22-30) mmol/L BUN (9-20) mg/dL Creatinine (0.66-1.25) mg/dL Glucose (74-99) mg/dL POC Glucose (mg/dL) 107 H (75-99) mg/dL Calcium (8.4-10.2) mg/dL ALT (4-49) U/L Total Protein (6.3-8.2) g/dL Albumin (3.5-5.0) g/dL 08/08/21 08/08/21 08/08/21 Range/Units 05:08 05:08 05:08 WBC 15.1 H (3.8-10.6) k/uL RBC 3.71 L (4.30-5.90) m/uL Hgb 9.8 L D (13.0-17.5) gm/dL Hct 33.4 L (39.0-53.0) % MCHC 29.3 L (31.0-37.0) g/dL Neutrophils # 13.8 H (1.3-7.7) k/uL Lymphocytes # 0.8 L (1.0-4.8) k/uL APTT 58.3 H (22.0-30.0) sec ABG pH (7.35-7.45) ABG pCO2 (35-45) mmHg ABG pO2 (83-108) mmHg ABG O2 Saturation (94-97) % Sodium 133 L (137-145) mmol/L Potassium 5.6 H (3.5-5.1) mmol/L Carbon Dioxide 21 L (22-30) mmol/L BUN 55 H (9-20) mg/dL Creatinine 2.88 H (0.66-1.25) mg/dL Glucose 116 H (74-99) mg/dL POC Glucose (mg/dL) (75-99) mg/dL Calcium 7.9 L (8.4-10.2) mg/dL ALT 61 H (4-49) U/L Total Protein 4.9 L (6.3-8.2) g/dL Albumin 2.3 L (3.5-5.0) g/dL 08/08/21 08/08/21 Range/Units 05:10 12:14 WBC (3.8-10.6) k/uL RBC (4.30-5.90) m/uL Hgb (13.0-17.5) gm/dL Hct (39.0-53.0) % MCHC (31.0-37.0) g/dL Neutrophils # (1.3-7.7) k/uL Lymphocytes # (1.0-4.8) k/uL APTT (22.0-30.0) sec ABG pH (7.35-7.45) ABG pCO2 (35-45) mmHg ABG pO2 (83-108) mmHg ABG O2 Saturation (94-97) % Sodium (137-145) mmol/L Potassium (3.5-5.1) mmol/L Carbon Dioxide (22-30) mmol/L BUN (9-20) mg/dL Creatinine (0.66-1.25) mg/dL Glucose (74-99) mg/dL POC Glucose (mg/dL) 118 H 131 H (75-99) mg/dL Calcium (8.4-10.2) mg/dL ALT (4-49) U/L Total Protein (6.3-8.2) g/dL Albumin (3.5-5.0) g/dL Microbiology - Last 24 Hours (Table) 08/06/21 10:41 Blood Culture - Preliminary Blood No Growth after 24 hours 08/06/21 10:33 Blood Culture - Preliminary Blood No Growth after 24 hours 08/06/21 17:00 Gram Stain - Preliminary Sputum Sputum Culture - Preliminary Assessment and Plan Assessment: 1 Acute hypoxic respiratory failure secondary to worsening COVID-19 pneumonia, patient was initially admitted on 07/31/21, required airvo with high flow oxygen and later BiPAP, and his clinical condition deteriorated gradually, required intubation and mechanical ventilation on 08/07/2021. Patient was initially on baricitinib, however because of his intermittent fevers and elevated pro calcitonin level, he was placed on Zosyn, and baricitinib was discontinued. 2 Acute or possibly subacute pulmonary embolism with at least 2 nonobstructing thrombosis in the right lung, remains on a heparin drip. 3 Acute renal failure with current creatinine 2.88, GFR 32 4 Obesity with a BMI of 50 5 Anemia with current hemoglobin 9.8 Plan: The patient was seen and evaluated by Dr. Garber Chest x-ray, ABGs and labs reviewed Advance endotracheal tube 1.2 cm Decreased FiO2 to 70% Increase fentanyl drip 0.5 mcg/kg per hour Initiated bicarb drip at 75 ML's per hour Follow-up chest x-ray, ABGs and labs in the a.m. We will continue to follow and make further recommendations based on his clinical status Critical care time 38 minutes I, the cosigning physician, performed a history & physical examination of the patient. Lungs sounds with coarse crackles in the bilateral bases. Maintaining O2 saturations in the high 80s and low 90s on 70% FiO2 and a PEEP of 18 via the mechanical ventilator. I discussed the assessment and plan of care with my nurse practitioner, Anila Mathis. I attest to the above note as dictated by her.
--- NOTE | 2021-08-08 13:23 | P.PN ---
Subjective This is a pleasant 31 years old -[place] man with no significant past medical history presents with dyspnea which started yesterday associated with fever and coughing. Patient tested positive for covid earlier on Thursday after he felt with fever and cough on Thursday but at that time he was not dyspneic. He denies chest pain or abdominal pain but he has diarrhea on and off. No vomiting. He is saturating 89% on 6 L oxygen via nasal cannula, afebrile. Tachypneic with a breathing rate at 23. CBC, is unremarkable. INR is normal at 1.0. Sodium is 1:30, creatinine normal at 1.1, glucose 103. AST is mildly elevated 106 and ALT mildly elevated 106. Elevated lactate dehydrogenase 2600 and C-reactive protein 20.3. Cholelithiasis positive EKG shows sinus tachycardia and [address]-T changes Chest x-ray showing bilateral infiltrates 08/01/2021 Patient sitting at bedside using 50 L of oxygen via nonrebreather. Reports slight improvement in his breathing and his chest x-ray showing somewhat improvement in that area should on both sides. He has low-grade fever today at 200. Blood pressure is stable. D-dimer is 1.87. BMP is unremarkable, liver enzymes slightly trending down. LDH slightly down at 2437 and slightly decreased and C-reactive protein 16.7. CBC and pro-calcitonin are pending Sputum and blood culture are still pending He remains on multiple vitamins, Baricitinib, dexamethasone and normal saline at 75 mL/h. Also he is on Lovenox. Norvasc is added for blood pressure control also we will add metoprolol Subjective: 08/05/21 patient still with dyspnea requiring BiPAP most of the time. He is developing fever of 101.7 today. Blood pressure 157/91. He has leukocytosis 19.1.liver enzymes Are the same. LDH elevated 2935 and C- reactive protein 18.2 his still on multiple vitamins, Baricitinib, dexamethasone and normal saline at 50 mL/h. Also he is on Lovenox therapeutic dose after his d-dimer yesterday. 08/06/2021 Patient remains on BiPAP needing higher pressures 14/8 and FiO2 of 100%. Also history of chronic fever around 100 and pro-calcitonin elevated at 0.40. This left leukocytosis around 22, LDH and C-reactive protein still elevated. D- dimer is trending down to 8.5 and CTA of the chest today showing negative for PE but bilateral groundglass opacity. Sputum culture 2 is negative. Urine analysis is negative for infection Today patient SWITCHED to heparin drip. Also he was started on Zosyn. Also dexamethasone 6 mg daily and normal saline at 50 mL per hour. Discontinue B aricitinib per pulmonary 08/07/2021 Patient respiratory status got worse and eventually patient got intubated while he is in the ICU. Pulmonary/critical care team following the patient closely and help with vent management. He has a fever of 100. Breathing rate around 29. Blood pressure is stable. WBC down to 19 K, Patient is acidotic with pH of 7.2, pCO2 of 57 which is low and high pO2 of 99. Chest x-ray showed increasing bilateral infiltrate and left lower lobe pneumonia. Repeat sputum culture is pending. First 2 samples were negative He remains on Zosyn, dexamethasone, normal saline at 50 mL per hour , heparin drip, multiple vitamins 08/08/2021 Patient remains in the ICU in critical condition and generally he is not doing well. I'll intubated and on mechanical ventilation with the pulmonary/critical care team R following closely He is hemodynamically stable, mildly tachycardic. WBC improving down to 15 but also hemoglobin dropped to 11.9 down to 9.8. And while he continued on heparin drip for suspected thrombosis secondary to his Covid infection and high d-dimer will increase his for chronic 40 mg daily and to twice a day. Patient FiO2 was lowered to 70%, he did not tolerate the prone position. He has no fever but tachypneic at 38 Today his creatinine went up 1.0 up to 2.8 with mild hyperkalemia however he is making good urine output with yellow urine in his Lees catheter bag nephrology team were consulted and bicarb drip was started for acidosis with pH of 7.22. He remains on Zosyn, dexamethasone, vitamin C, D and zinc. Review of systems: n/a Active Medications Generic Name Dose Route Start Last Admin Trade Name Freq PRN Reason Stop Dose Admin Acetaminophen 650 mg 08/01/21 11:32 08/06/21 07:44 Acetaminophen Tab 325 Mg Tab PO 650 mg Q4HR PRN Administration Fever and/ or Pain Albuterol Sulfate 2 puff 07/31/21 17:21 08/08/21 08:05 Albuterol Hfa Inhaler INHALATION 2 puff RT-QID PRN Administration Shortness Of Breath Or Wheezing Amlodipine Besylate 5 mg 07/31/21 17:30 08/08/21 10:03 Amlodipine 5 Mg Tab PO 5 mg DAILY MARGARITA Administration Ascorbic Acid 1,000 mg 07/31/21 09:00 08/08/21 08:59 Ascorbic Acid 500 Mg Tab PO 1,000 mg DAILY MARGARITA Administration Chlorhexidine Gluconate 15 ml 08/07/21 09:00 08/08/21 10:03 Chlorhexidine Gluconate 15 Ml Cup MUCOUS MEM 15 ml BID MARGARITA Administration Cholecalciferol 50 mcg 07/31/21 09:00 08/08/21 08:59 Cholecalciferol 25 Mcg (1000 Iu) Tablet PO 50 mcg DAILY MARGARITA Administration Dexamethasone Sodium Phosphate 6 mg 07/31/21 09:00 08/08/21 08:59 Dexamethasone Sod Phosphate 10 Mg/Ml 1 Ml Vial IV 6 mg DAILY MARGARITA Administration Heparin Sodium (Porcine) 0 unit 08/06/21 12:29 08/07/21 08:23 Heparin Sodium 1,000 Un/Ml (10ml Vl) IV 4,800 unit PER PROTOCOL PRN Administration Low PTT Protocol Hydralazine HCl 25 mg 07/31/21 20:32 08/07/21 00:17 Hydralazine Hcl 25 Mg Tab PO 25 mg QID PRN Administration Blood Pressure - High Heparin Sodium/Sodium Chloride 250 mls @ 23 mls/hr 08/06/21 12:30 08/08/21 07:25 25,000 unit/ Sodium Chloride IV 19.48 units/kg/hr .[id number] MARGARITA 25.624 mls/hr Administration Protocol 17.485 UNITS/KG/HR Piperacillin Sod/Tazobactam 100 mls @ 25 mls/hr 08/06/21 20:00 08/08/21 11:01 Sod 3.375 gm/ Sodium Chloride IVPB 25 mls/hr Q8H MARGARITA Administration Propofol 1,000 mg/ IV Solution 100 mls @ 0 mls/hr 08/07/21 03:00 08/08/21 10:24 IV 50 mcg/kg/min .Q0M MARGARITA 36.81 mls/hr Titration Protocol Titrate Cisatracurium Besylate 200 mg/ 200 mls @ 7.893 mls/hr 08/07/21 04:15 08/07/21 21:44 Sodium Chloride IV 1 mcg/kg/min .Q24H MARGARITA 7.893 mls/hr Administration Protocol 1 MCG/KG/MIN Fentanyl Citrate 2,500 mcg/ 250 mls @ 6.577 mls/hr 08/07/21 04:30 08/08/21 08:57 Sodium Chloride IV 0.5 mcg/kg/hr .Q24H MARGARITA 6.577 mls/hr Titration Protocol 0.5 MCG/KG/HR Sodium Bicarbonate 150 ml/ 1,150 mls @ 75 mls/hr 08/08/21 08:00 08/08/21 08:55 Dextrose/Water IV 75 mls/hr .[id number] MARGARITA Administration Clevidipine 25 mg/ IV Solution 50 mls @ 2 mls/hr 08/08/21 09:00 08/08/21 10:02 IV Not Given .Q24H MARGARITA Protocol 1 MG/HR Insulin Aspart 0 unit 08/08/21 00:00 08/08/21 12:30 Insulin Aspart (Novolog) 100 Unit/Ml Vial SQ Not Given Q6H MARGARITA Protocol Metoprolol Tartrate 25 mg 08/01/21 12:00 08/08/21 10:03 Metoprolol Tartrate 25 Mg Tab PO 25 mg BID MARGARITA Administration Naloxone HCl 0.2 mg 08/07/21 03:00 Naloxone 0.4 Mg/Ml 1 Ml Vial IV Q2M PRN Opioid Reversal Pantoprazole Sodium 40 mg 08/08/21 21:00 Pantoprazole 40 Mg/10 Ml Vial IVP BID MARGARITA Zinc Sulfate 220 mg 07/31/21 09:00 08/08/21 08:59 Zinc Sulfate 220 Mg Cap PO 220 mg DAILY MARGARITA Administration Objective - Vital Signs Vital signs: Vital Signs Temp 97.6 F 08/08/21 12:00 Pulse 91 08/08/21 12:00 Resp 38 H 08/08/21 12:00 BP 96/54 08/07/21 18:00 Pulse Ox 90 L 08/08/21 12:00 Intake & Output 08/07/21 08/08/21 08/08/21 18:59 06:59 18:59 Intake Total 2793.902 2949.855 1246.562 Output Total 505 398 875 Balance 2288.902 2551.855 371.562 Weight 120 kg 122.7 kg Intake: IV 2100 2175 550 0.9 NACL bolus 1000 Dextrose 5% in Water 1, 300 000 ml @ 75 mls/hr IV . [id number] MARGARITA with Sodium Bicarb (1 Meq/ml) 150 ml Rx#:[id number] Piperacillin-Tazobactam 3 500 325 .375 gm In Sodium Chloride 0.9% 100 ml @ 25 mls/hr IVPB Q8H [facility] Rx#: [id number] Sodium Chloride 0.9% 1, 600 850 250 000 ml @ 125 mls/hr IV . Q8H [facility] Rx#:[id number] Sodium Chloride 0.9% 1, 1000 000 ml @ 999 mls/hr IV . Q1H1M [facility] Rx#:[id number] Intake, IV Titration 693.902 604.855 468.562 Amount Cisatracurium 200 mg In 56.563 106.424 Sodium Chloride 0.9% 180 ml @ 1 MCG/KG/MIN 7.893 mls/hr IV .Q24H [facility] Rx#: [id number] Heparin Sod,Pork in 0.45% 231.335 217.377 250 NaCl 25,000 unit In 0.45 % NaCl 1 250ml.bag @ 17. 485 UNITS/KG/HR 23 mls/hr IV .[id number] [facility] Rx#: [id number] fentaNYL (PF). 2,500 mcg 16.004 78.991 In Sodium Chloride 0.9% 200 ml @ 0.5 MCG/KG/HR 6. 577 mls/hr IV .Q24H [facility] Rx#:[id number] propofoL 1,000 mg In 390.00 281.054 139.571 Empty Bag 1 bag @ Titrate IV .Q0M [facility] Rx#: [id number] Tube Feeding 140 168 Other 30 60 Output: Urine 505 398 875 Other: Voiding Method Indwelling Catheter Indwelling Catheter Indwelling Catheter ABP, PAP, CO, CI - Last Documented Arterial Blood Pressure 112/58 - Exam -GENERAL: The patient is intubated and sedated, not in any acute distress. Obese HEENT: Pupils are round and equally reacting to light. EOMI. No scleral icterus. No conjunctival pallor. Normocephalic, atraumatic. No pharyngeal erythema. No thyromegaly. CARDIOVASCULAR: S1 and S2 present. No murmurs, rubs, or gallops. -PULMONARY: Chest is clear to auscultation, no wheezing bilateral crepitation, tachypnea ABDOMEN: Soft, nontender, nondistended, normoactive bowel sounds. No palpable organomegaly. MUSCULOSKELETAL: No joint swelling or deformity. EXTREMITIES: No cyanosis, clubbing, or pedal edema. NEUROLOGICAL: Gross neurological examination did not reveal any focal deficits. SKIN: No rashes. No petechiae - Labs CBC & Chem 7: 08/08/21 05:08 08/08/21 05:08 Labs: Abnormal Lab Results - Last 24 Hours (Table) 08/07/21 08/07/21 08/08/21 Range/Units 18:45 23:46 05:02 WBC (3.8-10.6) k/uL RBC (4.30-5.90) m/uL Hgb (13.0-17.5) gm/dL Hct (39.0-53.0) % MCHC (31.0-37.0) g/dL Neutrophils # (1.3-7.7) k/uL Lymphocytes # (1.0-4.8) k/uL APTT 57.9 H (22.0-30.0) sec ABG pH 7.22 L (7.35-7.45) ABG pCO2 56 H (35-45) mmHg ABG pO2 205 H (83-108) mmHg ABG O2 Saturation 99.4 H (94-97) % Sodium (137-145) mmol/L Potassium (3.5-5.1) mmol/L Carbon Dioxide (22-30) mmol/L BUN (9-20) mg/dL Creatinine (0.66-1.25) mg/dL Glucose (74-99) mg/dL POC Glucose (mg/dL) 107 H (75-99) mg/dL Calcium (8.4-10.2) mg/dL ALT (4-49) U/L Total Protein (6.3-8.2) g/dL Albumin (3.5-5.0) g/dL 08/08/21 08/08/21 08/08/21 Range/Units 05:08 05:08 05:08 WBC 15.1 H (3.8-10.6) k/uL RBC 3.71 L (4.30-5.90) m/uL Hgb 9.8 L D (13.0-17.5) gm/dL Hct 33.4 L (39.0-53.0) % MCHC 29.3 L (31.0-37.0) g/dL Neutrophils # 13.8 H (1.3-7.7) k/uL Lymphocytes # 0.8 L (1.0-4.8) k/uL APTT 58.3 H (22.0-30.0) sec ABG pH (7.35-7.45) ABG pCO2 (35-45) mmHg ABG pO2 (83-108) mmHg ABG O2 Saturation (94-97) % Sodium 133 L (137-145) mmol/L Potassium 5.6 H (3.5-5.1) mmol/L Carbon Dioxide 21 L (22-30) mmol/L BUN 55 H (9-20) mg/dL Creatinine 2.88 H (0.66-1.25) mg/dL Glucose 116 H (74-99) mg/dL POC Glucose (mg/dL) (75-99) mg/dL Calcium 7.9 L (8.4-10.2) mg/dL ALT 61 H (4-49) U/L Total Protein 4.9 L (6.3-8.2) g/dL Albumin 2.3 L (3.5-5.0) g/dL 08/08/21 08/08/21 Range/Units 05:10 12:14 WBC (3.8-10.6) k/uL RBC (4.30-5.90) m/uL Hgb (13.0-17.5) gm/dL Hct (39.0-53.0) % MCHC (31.0-37.0) g/dL Neutrophils # (1.3-7.7) k/uL Lymphocytes # (1.0-4.8) k/uL APTT (22.0-30.0) sec ABG pH (7.35-7.45) ABG pCO2 (35-45) mmHg ABG pO2 (83-108) mmHg ABG O2 Saturation (94-97) % Sodium (137-145) mmol/L Potassium (3.5-5.1) mmol/L Carbon Dioxide (22-30) mmol/L BUN (9-20) mg/dL Creatinine (0.66-1.25) mg/dL Glucose (74-99) mg/dL POC Glucose (mg/dL) 118 H 131 H (75-99) mg/dL Calcium (8.4-10.2) mg/dL ALT (4-49) U/L Total Protein (6.3-8.2) g/dL Albumin (3.5-5.0) g/dL Microbiology - Last 24 Hours (Table) 08/06/21 10:41 Blood Culture - Preliminary Blood No Growth after 48 hours 08/06/21 10:33 Blood Culture - Preliminary Blood No Growth after 48 hours Assessment and Plan Assessment: Acute bilateral Covid pneumonia, with suspected bacterial superinfection mainly in the left lower lobe Acute hypoxic respiratory failure, even intubation and mechanical ventilation Elevated inflammatory markers Acute kidney injury Anemia Metabolic acidosis Elevated d-dimer Obesity with BMI of 49.8 Plan: This is a pleasant 31 years old male who presents with bilateral Covid pneumonia and hypoxia. Continue with oxygen as needed. Continue With dexamethasone . Continue with vitamin C, vitamin D and zinc. Discontinue Baricitinib . Continue with Zosyn c/w heparin drip. Discontinue Lovenox. Increase Protonix to twice a day and monitor hemoglobin Nephrology consult. Monitor creatinine. Patient has good urine output. Continue with sodium bicarb. Pulmonary/critical care team consult. Vent management Labs and medication were reviewed.. Continue same treatment. Continue with s ymptomatic treatment. Resume home medication. Monitor lytes and vitals. DVT and GI prophylaxis. Further recommendations depends on the clinical course of the patient DVT prophylaxis: Heparin drip GI Prophylaxis: Protonix Prognosis is guarded
--- NOTE | 2021-08-08 13:27 | CONS ---
CONSULTATION REASON FOR CONSULT: Renal failure. HISTORY OF PRESENT ILLNESS: Patient is a 31-year-old male who was admitted to the hospital initially on 07/31/2021 for shortness of breath he tested positive for coronavirus and had COVID pneumonia. The patient was initially maintained on the floor. He was on BiPAP and subsequently developed worsening respiratory failure and was eventually intubated on 08/07/2021. The patient also had a chest CTA done on 08/06/2021 which was positive for for right lung pulmonary artery thrombus. Currently maintained on IV heparin. Serum creatinine increased to 2.8 today from 1.0 yesterday. Blood pressures had been slightly on the lower side yesterday with systolic noted at 85 and 89 mmHg earlier this morning but now mostly at 105-108 mmHg. Urine output now improved to about 200-170 mL/hour. It had initially been about 30 mL an hour last night. No other nephrotoxic agents administered recently. PAST MEDICAL HISTORY: None. MEDICATIONS: Medications prior to admission included vitamin C, aspirin, ibuprofen, Aleve, zinc, Plaquenil, which I am not sure why patient was taking. ALLERGIES: None. REVIEW OF SYSTEMS: As per HPI. Other systems negative. EXAMINATION: Comfortable. Patient is currently on the vent. He is sedated. FiO2 at 60%. Blood pressure 108/56, heart rate 92 per minute. He is afebrile. Examination shows trace edema bilateral lower extremities. Abdomen is soft, obese, nontender. Lungs and heart are not examined. PRIVATE INVESTIGATOR SURVEILLANCE exam cannot be performed as patient is sedated. LAB: Show sodium of 133, potassium 5.6, chloride 102, BUN 55, creatinine 2.8, hemoglobin 9.8 g/dL. ASSESSMENT: 1. Acute kidney injury, acute tubular necrosis associated with hypotension, hypoperfusion and underlying COVID pneumonia currently nonoliguric with improved urine output this morning. Potassium was elevated at 5.6 mEq/L. We will continue to monitor and repeat potassium this evening. Expect improvement as urine output has picked up significantly. The patient also received IV contrast on 08/06/2021 and we will monitor for contrast induced nephropathy as well. 2. Hyperkalemia associated with acute kidney injury. We will repeat labs and monitor for need for renal replacement therapy. Hopefully patient will not need it given his increased urine output. 3. Acute hypoxic respiratory failure associated with associated with COVID pneumonia and right lung pulmonary embolism, currently on the vent. 4. Anemia, rule out iron deficiency. 5. COVID pneumonia, started on Plaquenil a few days ago prior to admission as he tested positive as outpatient. Currently maintained on steroids and on the vent, status post Remdesivir and baricitinib. PLAN: IV hydration. Avoid any further nephrotoxic agents. Monitor electrolytes. Repeat potassium this evening. We will likely discontinue the bicarb drip tomorrow based on his labs. Thank you for this consultation. We will continue to follow the patient with you during his hospitalization. MMODL / IJN: [id number] /
[2021-08-08 18:00] LABS: Glucose,Whole Blood 142 mg/dL (75-99)
[2021-08-08 23:11] LABS: Glucose,Whole Blood 132 mg/dL (75-99)
[2021-08-09] MEDS: DEXTROSE 5% IN WATER 1,000 ML with SODIUM BICARB (1 MEQ/ML) 150 ML IV SCH (01:43)
[2021-08-09] MEDS: HEPARIN SOD,PORK IN 0.45% NACL 25,000 UNIT in 0.45% NACL 1 250ML.BAG IV SCH ×3 (04:22→22:24)
[2021-08-09] MEDS: PIPERACILLIN-TAZOBACTAM 3.375 GM in SODIUM CHLORIDE 0.9% 100 ML IVPB SCH ×3 (04:23→20:39)
[2021-08-09 05:33] LABS: Basophils % (A) 0 %; Eosinophils # (A) 0.1 k/uL (0-0.7); Eosinophils % (A) 1 %; HCT 30.3 % (39.0-53.0); HGB 9.2 gm/dL (13.0-17.5); Hypochromasia Moderate; Lymphocytes # (A) 0.7 k/uL (1.0-4.8); Lymphocytes % (A) 6 %; MCHC 30.3 g/dL (31.0-37.0); Mean Platelet Volume 9.8; Monocytes # (A) 0.4 k/uL (0-1.0); Monocytes % (A) 3 %; Neutrophils # (A) 10.8 k/uL (1.3-7.7); Neutrophils % (A) 89 %; Platelet Count 276 k/uL (150-450); WBC 12.1 k/uL (3.8-10.6)
[2021-08-09 06:01] LABS: Calcium 7.8 mg/dL (8.4-10.2); Potassium 4.9 mmol/L (3.5-5.1)
[2021-08-09 06:02] LABS: ABG Base Excess 4.7 mmol/L; ABG HCO3 31 mmol/L (21-25); ABG PCO2 59 mmHg (35-45); ABG PH 7.33 (7.35-7.45); ABG TCO2 33 mmol/L (19-24)
[2021-08-09 06:08] LABS: Glucose,Whole Blood 104 mg/dL (75-99)
[2021-08-09 06:11] LABS: ABG PO2 58 mmHg (83-108); Allen Test Performed? no
--- NOTE | 2021-08-09 07:11 | XR ---
EXAMINATION TYPE: XR chest 1V portable DATE OF EXAM: 08/09/2021 COMPARISON: 08/08/2021 HISTORY: Tube placement TECHNIQUE: Single frontal view of the chest is obtained. FINDINGS: ET tube satisfactory. NG tube courses below the diaphragm. Left PICC tip probably upper SV C level. Heart normal size. Fine interstitial and patchy densities persist bilaterally, left greater than right. There may be slight improving aeration in the interval. IMPRESSION: Stable diffuse bilateral lung disease with pleural effusion unchanged from prior exam.
[2021-08-09] MEDS: INSULIN ASPART (NovoLOG) 100 UNIT/ML VIAL SQ SCH ×4 (07:46→23:57)
[2021-08-09 07:47] LABS: ABG Base Excess 4.9 mmol/L; ABG HCO3 31 mmol/L (21-25); ABG Oxygen Saturation 91.7 % (94-97); ABG PCO2 56 mmHg (35-45); ABG PH 7.35 (7.35-7.45); ABG PO2 66 mmHg (83-108); ABG TCO2 32 mmol/L (19-24)
[2021-08-09 07:48] LABS: Allen Test Performed? no
[2021-08-09] MEDS: CISATRACURIUM 200 MG in SODIUM CHLORIDE 0.9% 180 ML IV SCH ×2 (08:12→18:44)
[2021-08-09] MEDS: fentaNYL (PF). 2,500 MCG in SODIUM CHLORIDE 0.9% 200 ML IV SCH (08:30)
[2021-08-09] MEDS: PANTOPRAZOLE 40 MG/10 ML VIAL IVP SCH ×2 (08:34→20:40)
[2021-08-09] MEDS: CHLORHEXIDINE GLUCONATE 15 ML CUP MUCOUS MEM SCH ×2 (08:34→20:39)
[2021-08-09] MEDS: HEPARIN SODIUM 1,000 UN/ML (10ML VL) IV PRN (08:35)
[2021-08-09] MEDS: ASCORBIC ACID 500 MG TAB PO SCH (08:35)
[2021-08-09] MEDS: ZINC SULFATE 220 MG CAP PO SCH (08:35)
[2021-08-09] MEDS: CHOLECALCIFEROL 25 MCG (1000 IU) TABLET PO SCH (08:35)
[2021-08-09] MEDS: DEXAMETHASONE SOD PHOSPHATE 10 MG/ML 1 ML VIAL IV SCH ×2 (08:35→20:40)
[2021-08-09] MEDS: CLEVIDIPINE BUTYRATE 25 MG in EMPTY BAG 1 BAG IV SCH (08:36)
[2021-08-09] MEDS: amLODIPine 5 MG TAB PO SCH (09:25)
[2021-08-09] MEDS: SODIUM CHLORIDE 0.9% 1,000 ML IV SCH ×2 (10:03→23:38)
[2021-08-09] MEDS: METOPROLOL TARTRATE 25 MG TAB PO SCH ×2 (10:55→22:24)
[2021-08-09 11:22] LABS: Glucose,Whole Blood 103 mg/dL (75-99)
[2021-08-09] MEDS: ALBUTEROL HFA INHALER INHALATION PRN ×3 (11:36→20:59)
--- NOTE | 2021-08-09 11:49 | PN ---
PROGRESS NOTE Patient is seen for followup for acute kidney injury associated with COVID pneumonia, hypotension. Patient's creatinine is actually improved to 2.2 from 2.8. He has been maintained on IV fluids. Patient remains on the vent. He is hemodynamically stable. FiO2 is at 65, PEEP is increased to 20. Urine output at about 85 to 60 mL/hour. Vital signs are reviewed. Blood pressure 114/53, heart rate 92 per minute. He is afebrile. Case is discussed with nursing staff. Patient is not examined today. There is no change in his overall condition in terms of edema. No significant edema. BYPRODUCT ENGINEER exam cannot be performed, as patient is sedated and on Nimbex. Labs are reviewed. Sodium 136, potassium 4.9, BUN 53, creatinine 2.2, hemoglobin of 9.2 g/dL. ASSESSMENT: 1. Acute kidney injury, acute tubular necrosis, multifactorial, including underlying COVID pneumonia, IV contrast for CTA, currently improving. 2. Hyperkalemia associated with acute kidney injury, currently improved. 3. Acute hypoxic respiratory failure secondary to COVID pneumonia and right lung pulmonary embolism, currently on the vent. 4. Right lung pulmonary embolism, maintained on heparin. 5. COVID pneumonia, started on Plaquenil prior to admission, currently on steroids, status post remdesivir and baricitinib. PLAN: Discontinue bicarb drip. Change IV fluids to normal saline. Repeat labs in a.m. Avoid any nephrotoxic agents. MMODL / IJN: [id number] /
--- NOTE | 2021-08-09 13:02 | P.PN ---
Subjective Progress Note Date: 08/09/21 Principal diagnosis: Acute hypoxic respiratory failure secondary to COVID-19 pneumonia On today's evaluation patient is seen in follow-up on 08/05/2021, he is currently on BiPAP support with pressure of 14/8, and the pulse ox is 87-93%, patient does alternate with Airvo at 60 L and 90% FiO2, and at bedtime and as needed for periods of time during the day he does go on BiPAP. He is awake and alert, he sitting up on the edge of the bed, dyspneic with exertion, but no acute distress, he remains on Bicitra neb, he is on IV Decadron, Lovenox 60 mg twice daily, he is on 0.9 normal saline at a rate of 50 ML per hour, he is on multivitamins, his latest chest x-ray from 08/04/2021 showed improved inspiration, improved right basilar focal consolidation, and persistent bilateral diffuse reticulonodular opacities in the lower lungs consistent with known COVID-19 infection. Today's labs have been reviewed, his white blood cell count is 19.1, hemoglobin is 13.1, d-dimer is 14.3, sodium is 133, the rest of electrolytes and renal profile were fairly unremarkable, his inflammatory markers are relatively stable and LDH is 2935, and CRP is 18.2, pro calcitonin level is slightly improved and is down to 0.40. His blood and sputum cultures have shown no growth. He did have a fever with a temp of 101.7F. Currently afebrile. No complaints of chest discomfort. No hemoptysis, his lower extremity Dopplers were negative for DVT. On 08/06/2021 patient seen in follow-up on medical surgical floor. Patient still requiring high flow oxygen per Airvo, and he is requiring BiPAP support most of time with pressures of 14/88 and FiO2 of 100% and his pulse ox is 87- 90%, he continues to have fevers, with a T-max 101.7F, overnight his fever pattern has improved and he still having some low-grade fevers. He is short of breath with any exertion. He continues on Decadron 6 mg daily, Baricitinib, and Lovenox at intermediate dosing at 0.5 mg/kg twice daily which is above 60 mg twice daily for this patient's weight. His d-dimer is down to 8.58 on today's labs, improved although still significantly elevated, lower extremity Dopplers were negative for any evidence of DVT. There is concern for superimposed bacterial infection, especially in view of fever, and elevated white blood cell count. Today's white count is 22.1, hemoglobin is 13, sodium is 131, rest of electrolytes were within normal limits, B1 is 27 creatinine 0.89, pro Level Was Borderline at 0.40, Also Suggestive of a Possible Super Imposed Bacterial Infection. Patient was transferred yesterday to the ICU, and around 2 AM this morning, I was notified about this patient is not doing well. Patient was noted to be desaturating, anxious, tachycardic, and patient did not improve much with Precedex. Hence I recommended intubating the patient. Patient was intubated by JILL, trace on mechanical ventilation, and he is now on assist control rate of 38, tidal volume of 375 100% FiO2 and PEEP is 18. His ABG showed a pO2 of 99 pCO2 57 pH of 7.27. Patient is on multiple drips including propofol at 50 f entanyl at 0.25 mcg/kg/h, Nimbex at 1 and he is on IV fluid 0.9 normal saline at 50 mL per hour. Patient was actually intubated around 2:45 AM this morning. Reviewed his chest x-ray, clearly showed bilateral infiltrates, consistent with COVID-19 pneumonia. His endotracheal tube is in the proper position. And his orogastric tube is also in the proper position. After reviewing his ABG, I cut down his FiO2 to 90%, may consider going higher on the PEEP, may also consider placing the patient in prone position. I have consulted interventional radiology for a PICC line placement, and I went ahead and placed a right radial arterial line. Patient will be off heparin for a couple of hours prior to the PICC line placement. I reviewed his CT angiogram of the chest from yesterday, the minor evidence of pulmonary embolism is not clinically impressive, however nonetheless the patient will need to be heparinized noticing that he has elevated d-dimer and the fact that he has COVID-19 pneumonia which is a major provoking factor for thrombus embolic disease. WBC count today is 19 hemoglobin is 11.9 his PTT was therapeutic initially at 50.1, and this morning it is 37.9, patient received a heparin bolus. Electrolytes are normal potassium is 5.1 BUN is 28 creatinine is 1.03. Medications espinoza, patient is on albuterol, amlodipine, vitamin C, Peridex, vitamin D, Nimbex, Decadron 6 mg IV push daily, fentanyl, heparin, hydralazine, metoprolol, lisinopril, Protonix, Zosyn, and zinc. Used to be on baricitimib, however because of his leukocytosis and elevated pro calcitonin, this was discontinued, and we started the patient empirically on antibiotics. Blood cultures and sputum cultures so far are negative. And they seem to be nondiagnostic so far. At one point, the patient was spiking fevers, his T-max yesterday was 99.1. The patient is seen today 08/08/2021 and follow-up in the intensive care unit. He remains intubated, sedated, paralyzed and on the mechanical ventilator. Cur rent settings are assist control at a rate of 38, tidal volume 375, FiO2 100% and a PEEP of 18. Peak pressures of 35, plateau of 33. Morning blood gases revealed a PaO2 of 205, pCO2 56, pH 7.22. He remains in sinus tachycardia currently at 104. He is currently on propofol 50 mcg/kg/m, fentanyl at 0.25 mcg/kg per hour, Nimbex at 1 mcg/kg/m, heparin drip per weight-based protocol. 0.9 normal saline at 125 ML's per hour. Staff did attempt to prone the patient yesterday however he had a significant cuff leak, significant desaturations and had to be placed back in supine position almost immediately. Chest x-ray reveals continued diffuse fine interstitial infiltrates, left greater than right with possibly some slight improvement in aeration. Blood cultures reveal no growth. Sputum cultures reveal no growth. White count 15.1. Hemoglobin 9.8. Platelets 230. Lymphocytes 0.8. Sodium 133. Potassium 5.6. Bicarb 21. Creatinine 2.88. Blood glucose 118. AST 39. ALT 61. He is continued on Decadron, Zosyn, vitamin supplements. He is currently afebrile. Not requiring pressors. He is being nourished with vital AF at 20 ML's per hour. Reevaluated today on 08/09/2021, patient remains in the ICU, intubated and mechanically ventilated, sedated and paralyzed. Ventilator settings are assist control rate of 38 tidal volume 375 FiO2 65% PEEP increased to 20 this morning. ABG earlier on a PEEP of 18 showed a pO2 of 66 pCO2 of 56 pH of 7.35. Patient is on Nimbex at 2 mcg/kg/m fentanyl 0.5 mcg/kg/h propofol at 55 mcg/kg/m still on a bicarb drip at 75 mL per hour. Patient is on enteral feeding using vital AF . Patient remains on Decadron at 6 mg IV push twice a day. Remains on heparin. Remains on the COVID-19 cocktail. Remains on albuterol, remains on GI prophylaxis. Insulin as per protocol, metoprolol Pavithra and empirically on Zosyn for his elevated pro calcitonin level. Chest x-ray continues to show bilateral interstitial infiltrates consistent with COVID-19 pneumonia not much of a change noted on the chest x-ray today. Labs, showed relatively normal CBC. PTT is 41.6, patient is on heparin, electrolytes are normal renal profile showed slight improvement to BUN is 53 creatinine 2.22. Repeat pro calcitonin yesterday was 5.5, last LDH was 2931, and C-reactive protein is elevated at 31.6 Objective - Vital Signs Vital signs: Vital Signs Temp 99.0 F 08/09/21 12:00 Pulse 93 08/09/21 12:00 Resp 38 H 08/09/21 12:00 BP 96/54 08/07/21 18:00 Pulse Ox 94 L 08/09/21 12:00 Intake & Output 08/08/21 08/09/21 08/09/21 18:59 06:59 18:59 Intake Total 2394.661 6069.782 5512.373 Output Total 1400 1495 507 Balance 994.661 255.330 615.373 Weight 124.6 kg 124.6 kg Intake: IV 1100 1050 434 Dextrose 5% in Water 1, 750 900 309 000 ml @ 75 mls/hr IV . [id number] MARGARITA with Sodium Bicarb (1 Meq/ml) 150 ml Rx#:[id number] Piperacillin-Tazobactam 3 100 150 125 .375 gm In Sodium Chloride 0.9% 100 ml @ 25 mls/hr IVPB Q8H MARGARITA Rx#: [id number] Sodium Chloride 0.9% 1, 250 000 ml @ 125 mls/hr IV . Q8H MARGARITA Rx#:[id number] Intake, IV Titration 868.661 560.330 660.373 Amount Cisatracurium 200 mg In 150.099 49.901 Sodium Chloride 0.9% 180 ml @ 1 MCG/KG/MIN 7.893 mls/hr IV .Q24H MARGARITA Rx#: [id number] Heparin Sod,Pork in 0.45% 500 250 108.475 NaCl 25,000 unit In 0.45 % NaCl 1 250ml.bag @ 17. 485 UNITS/KG/HR 23 mls/hr IV .[id number] MARGARITA Rx#: [id number] Sodium Chloride 0.9% 1, 225 000 ml @ 75 mls/hr IV . [id number] MARGARITA Rx#:[id number] fentaNYL (PF). 2,500 mcg 78.991 154.888 In Sodium Chloride 0.9% 200 ml @ 0.5 MCG/KG/HR 6. 577 mls/hr IV .Q24H MARGARITA Rx#:[id number] propofoL 1,000 mg In 139.571 260.429 172.010 Empty Bag 1 bag @ Titrate IV .Q0M MARGARITA Rx#: [id number] Tube Feeding 336 140 28 Other 90 0 Output: Urine 1400 1495 507 Other: Voiding Method Indwelling Catheter Indwelling Catheter Indwelling Catheter ABP, PAP, CO, CI - Last Documented Arterial Blood Pressure 118/56 - Exam Physical Exam: Revealed 31-year-old -[place] male, on mechanical ventilation, sedated and paralyzed. Head: Atraumatic, normocephalic. HEENT: Short obese neck. [Neck is supple.] [No neck masses.] [No thyromegaly.] [No JVD.] Endotracheal tube and orogastric tube are intact. Chest: [Symmetrical chest expansion, crackles at the bases, some wheezing noted today Cardiac Exam: Distant S1 and S2, no S3 gallop, no murmur. Abdomen: [Obese, soft, nontender, no megaly, no rebound, no guarding. Extremities: No clubbing, trace of edema, no cyanosis. Neurological Exam: Cannot assess, patient is on sedatives, narcotics, and paralytics. Psychiatric: Could not be assessed as noted above. Musculoskeletal: No deformities, could not assess range of motion. Skin: No rashes. - Labs CBC & Chem 7: 08/09/21 04:30 08/09/21 04:30 Labs: Abnormal Lab Results - Last 24 Hours (Table) 08/08/21 08/08/21 08/08/21 Range/Units 05:08 17:59 23:10 WBC (3.8-10.6) k/uL RBC (4.30-5.90) m/uL Hgb (13.0-17.5) gm/dL Hct (39.0-53.0) % MCHC (31.0-37.0) g/dL Neutrophils # (1.3-7.7) k/uL Lymphocytes # (1.0-4.8) k/uL APTT (22.0-30.0) sec ABG pH (7.35-7.45) ABG pCO2 (35-45) mmHg ABG pO2 (83-108) mmHg ABG HCO3 (21-25) mmol/L ABG Total CO2 (19-24) mmol/L ABG O2 Saturation (94-97) % Sodium (137-145) mmol/L BUN (9-20) mg/dL Creatinine (0.66-1.25) mg/dL Glucose (74-99) mg/dL POC Glucose (mg/dL) 142 H 132 H (75-99) mg/dL Calcium (8.4-10.2) mg/dL Procalcitonin 5.50 H (0.02-0.09) ng/mL 08/09/21 08/09/21 08/09/21 Range/Units 04:30 04:30 06:01 WBC 12.1 H (3.8-10.6) k/uL RBC 3.40 L (4.30-5.90) m/uL Hgb 9.2 L (13.0-17.5) gm/dL Hct 30.3 L (39.0-53.0) % MCHC 30.3 L (31.0-37.0) g/dL Neutrophils # 10.8 H (1.3-7.7) k/uL Lymphocytes # 0.7 L (1.0-4.8) k/uL APTT (22.0-30.0) sec ABG pH 7.33 L (7.35-7.45) ABG pCO2 59 H (35-45) mmHg ABG pO2 58 L* (83-108) mmHg ABG HCO3 31 H (21-25) mmol/L ABG Total CO2 33 H (19-24) mmol/L ABG O2 Saturation 88.0 L (94-97) % Sodium 136 L (137-145) mmol/L BUN 53 H (9-20) mg/dL Creatinine 2.22 H (0.66-1.25) mg/dL Glucose 112 H (74-99) mg/dL POC Glucose (mg/dL) (75-99) mg/dL Calcium 7.8 L (8.4-10.2) mg/dL Procalcitonin (0.02-0.09) ng/mL 08/09/21 08/09/21 08/09/21 Range/Units 06:06 07:45 07:59 WBC (3.8-10.6) k/uL RBC (4.30-5.90) m/uL Hgb (13.0-17.5) gm/dL Hct (39.0-53.0) % MCHC (31.0-37.0) g/dL Neutrophils # (1.3-7.7) k/uL Lymphocytes # (1.0-4.8) k/uL APTT 41.6 H (22.0-30.0) sec ABG pH (7.35-7.45) ABG pCO2 56 H (35-45) mmHg ABG pO2 66 L (83-108) mmHg ABG HCO3 31 H (21-25) mmol/L ABG Total CO2 32 H (19-24) mmol/L ABG O2 Saturation 91.7 L (94-97) % Sodium (137-145) mmol/L BUN (9-20) mg/dL Creatinine (0.66-1.25) mg/dL Glucose (74-99) mg/dL POC Glucose (mg/dL) 104 H (75-99) mg/dL Calcium (8.4-10.2) mg/dL Procalcitonin (0.02-0.09) ng/mL 08/09/21 Range/Units 11:21 WBC (3.8-10.6) k/uL RBC (4.30-5.90) m/uL Hgb (13.0-17.5) gm/dL Hct (39.0-53.0) % MCHC (31.0-37.0) g/dL Neutrophils # (1.3-7.7) k/uL Lymphocytes # (1.0-4.8) k/uL APTT (22.0-30.0) sec ABG pH (7.35-7.45) ABG pCO2 (35-45) mmHg ABG pO2 (83-108) mmHg ABG HCO3 (21-25) mmol/L ABG Total CO2 (19-24) mmol/L ABG O2 Saturation (94-97) % Sodium (137-145) mmol/L BUN (9-20) mg/dL Creatinine (0.66-1.25) mg/dL Glucose (74-99) mg/dL POC Glucose (mg/dL) 103 H (75-99) mg/dL Calcium (8.4-10.2) mg/dL Procalcitonin (0.02-0.09) ng/mL Microbiology - Last 24 Hours (Table) 08/06/21 17:00 Gram Stain - Final Sputum Sputum Culture - Final 08/06/21 10:41 Blood Culture - Preliminary Blood No Growth after 48 hours 08/06/21 10:33 Blood Culture - Preliminary Blood No Growth after 48 hours Assessment and Plan Assessment: Acute hypoxic respiratory failure secondary to worsening COVID-19 pneumonia, patient was initially admitted on 07/31, required airvo with high flow oxygen and later BiPAP, and his clinical condition deteriorated gradually, required intubation and mechanical ventilation on 08/07/2021. Patient was initially on baricitinib, however because of his intermittent fevers and elevated pro calcitonin level, he was placed on Zosyn, and baricitinib was discontinued. Acute or possibly subacute pulmonary embolism with at least 2 nonobstructing thrombosis in the right lung, remains on heparin. We will continue heparin, may eventually transitioned to Eliquis. Leukocytosis, possibility of superimposed bacterial infection is not entirely ruled out, however cultures remain negative so far. Sputum cultures are nondiagnostic, showing mostly normal guero. Elevated d-dimer with negative Doppler for DVT. However considering his abnormal CT angiogram of the chest, patient remains on heparin/therapeutic. Elevated inflammatory markers secondary to COVID-19 pneumonia Elevated liver enzymes secondary to viral over 19 pneumonia Morbid obesity with BMI of 47.2. Recommendation: Continue ventilatory support. Increase PEEP to 20, kept him on 60% FiO2 otherwise no changes made in ventilator settings today. Continue heparin infusion Continue empiric antibiotics. Patient is on Zosyn. Continue sedatives and paralytics, considering the high PEEP, patient will remain on Nimbex for now, Titrate oxygen accordingly and adjust PEEP daily. continue gi prophylaxis enteral feedings prone position was attempted, however the patient did poorly with prone position, almost lost his endotracheal tube, developed significantly, and desaturated during the process. Hence would avoid prone position for now. prognosis is guarded, needs to remain in the ICU. critical care time over 30 minutes Time with Patient: Greater than 30
[2021-08-09] MEDS: ARTIFICIAL TEARS-HYPROMELLOSE DROPS 15 ML BTL BOTH EYES SCH ×3 (16:42→23:39)
[2021-08-09 17:41] LABS: Glucose,Whole Blood 117 mg/dL (75-99)
--- NOTE | 2021-08-09 19:46 | P.PN ---
Subjective This is a pleasant 31 years old -[place] man with no significant past medical history presents with dyspnea which started yesterday associated with fever and coughing. Patient tested positive for covid earlier on Thursday after he felt with fever and cough on Thursday but at that time he was not dyspneic. He denies chest pain or abdominal pain but he has diarrhea on and off. No vomiting. He is saturating 89% on 6 L oxygen via nasal cannula, afebrile. Tachypneic with a breathing rate at 23. CBC, is unremarkable. INR is normal at 1.0. Sodium is 1:30, creatinine normal at 1.1, glucose 103. AST is mildly elevated 106 and ALT mildly elevated 106. Elevated lactate dehydrogenase 2600 and C-reactive protein 20.3. Cholelithiasis positive EKG shows sinus tachycardia and [address]-T changes Chest x-ray showing bilateral infiltrates 08/01/2021 Patient sitting at bedside using 50 L of oxygen via nonrebreather. Reports slight improvement in his breathing and his chest x-ray showing somewhat improvement in that area should on both sides. He has low-grade fever today at 200. Blood pressure is stable. D-dimer is 1.87. BMP is unremarkable, liver enzymes slightly trending down. LDH slightly down at 2437 and slightly decreased and C-reactive protein 16.7. CBC and pro-calcitonin are pending Sputum and blood culture are still pending He remains on multiple vitamins, Baricitinib, dexamethasone and normal saline at 75 mL/h. Also he is on Lovenox. Norvasc is added for blood pressure control also we will add metoprolol Subjective: 08/05/21 patient still with dyspnea requiring BiPAP most of the time. He is developing fever of 101.7 today. Blood pressure 157/91. He has leukocytosis 19.1.liver enzymes Are the same. LDH elevated 2935 and C- reactive protein 18.2 his still on multiple vitamins, Baricitinib, dexamethasone and normal saline at 50 mL/h. Also he is on Lovenox therapeutic dose after his d-dimer yesterday. 08/06/2021 Patient remains on BiPAP needing higher pressures 14/8 and FiO2 of 100%. Also history of chronic fever around 100 and pro-calcitonin elevated at 0.40. This left leukocytosis around 22, LDH and C-reactive protein still elevated. D- dimer is trending down to 8.5 and CTA of the chest today showing negative for PE but bilateral groundglass opacity. Sputum culture 2 is negative. Urine analysis is negative for infection Today patient SWITCHED to heparin drip. Also he was started on Zosyn. Also dexamethasone 6 mg daily and normal saline at 50 mL per hour. Discontinue B aricitinib per pulmonary 08/07/2021 Patient respiratory status got worse and eventually patient got intubated while he is in the ICU. Pulmonary/critical care team following the patient closely and help with vent management. He has a fever of 100. Breathing rate around 29. Blood pressure is stable. WBC down to 19 K, Patient is acidotic with pH of 7.2, pCO2 of 57 which is low and high pO2 of 99. Chest x-ray showed increasing bilateral infiltrate and left lower lobe pneumonia. Repeat sputum culture is pending. First 2 samples were negative He remains on Zosyn, dexamethasone, normal saline at 50 mL per hour , heparin drip, multiple vitamins 08/08/2021 Patient remains in the ICU in critical condition and generally he is not doing well. I'll intubated and on mechanical ventilation with the pulmonary/critical care team R following closely He is hemodynamically stable, mildly tachycardic. WBC improving down to 15 but also hemoglobin dropped to 11.9 down to 9.8. And while he continued on heparin drip for suspected thrombosis secondary to his Covid infection and high d-dimer will increase his for chronic 40 mg daily and to twice a day. Patient FiO2 was lowered to 70%, he did not tolerate the prone position. He has no fever but tachypneic at 38 Today his creatinine went up 1.0 up to 2.8 with mild hyperkalemia however he is making good urine output with yellow urine in his Lees catheter bag nephrology team were consulted and bicarb drip was started for acidosis with pH of 7.22. He remains on Zosyn, dexamethasone, vitamin C, D and zinc. 08/09/2021 Remains in the ICU in critical condition. He continue on mechanical ventilation with pulmonary/critical care team on the consult. He still significantly tachypneic at 38 and leukocytosis. Possibly just at that time level 18 to 20, prone position was tried but patient could not tolerate it so avoided now. Labs showing improvement leukocytosis 12 K, hemoglobin 9.2, FiO2 lower to 55%. Creatinine improved slightly to 2.2 after starting normal saline at 75 mL/h. Chest x-ray showing the same findings of bilateral pneumonia. Dexamethasone was increased to twice daily today, normal saline 75 mL/h started. Well continued on heparin drip, Zosyn and multiple vitamins Review of systems: n/a Active Medications Generic Name Dose Route Start Last Admin Trade Name Freq PRN Reason Stop Dose Admin Acetaminophen 650 mg 08/01/21 11:32 08/06/21 07:44 Acetaminophen Tab 325 Mg Tab PO 650 mg Q4HR PRN Administration Fever and/ or Pain Albuterol Sulfate 2 puff 07/31/21 17:21 08/09/21 16:48 Albuterol Hfa Inhaler INHALATION 2 puff RT-QID PRN Administration Shortness Of Breath Or Wheezing Amlodipine Besylate 5 mg 07/31/21 17:30 08/09/21 09:25 Amlodipine 5 Mg Tab PO Not Given DAILY [facility] Artificial Tears 1 drops 08/09/21 16:00 08/09/21 16:42 Artificial Tears-Hypromellose Drops 15 Ml Btl BOTH EYES 1 drops Q4H [facility] Administration Ascorbic Acid 1,000 mg 07/31/21 09:00 08/09/21 08:35 Ascorbic Acid 500 Mg Tab PO 1,000 mg DAILY [facility] Administration Chlorhexidine Gluconate 15 ml 08/07/21 09:00 08/09/21 08:34 Chlorhexidine Gluconate 15 Ml Cup MUCOUS MEM 15 ml BID [facility] Administration Cholecalciferol 50 mcg 07/31/21 09:00 08/09/21 08:35 Cholecalciferol 25 Mcg (1000 Iu) Tablet PO 50 mcg DAILY [facility] Administration Dexamethasone Sodium Phosphate 6 mg 08/09/21 21:00 Dexamethasone Sod Phosphate 10 Mg/Ml 1 Ml Vial IV BID [facility] Heparin Sodium (Porcine) 0 unit 08/06/21 12:29 08/09/21 08:35 Heparin Sodium 1,000 Un/Ml (10ml Vl) IV 4,960 unit PER PROTOCOL PRN Administration Low PTT Protocol Hydralazine HCl 25 mg 07/31/21 20:32 08/07/21 00:17 Hydralazine Hcl 25 Mg Tab PO 25 mg QID PRN Administration Blood Pressure - High Heparin Sodium/Sodium Chloride 250 mls @ 23 mls/hr 08/06/21 12:30 08/09/21 15:48 25,000 unit/ Sodium Chloride IV 19.48 units/kg/hr .[id number] [facility] 25.624 mls/hr Titration Protocol 17.485 UNITS/KG/HR Piperacillin Sod/Tazobactam 100 mls @ 25 mls/hr 08/06/21 20:00 08/09/21 11:05 Sod 3.375 gm/ Sodium Chloride IVPB 25 mls/hr Q8H [facility] Administration Propofol 1,000 mg/ IV Solution 100 mls @ 0 mls/hr 08/07/21 03:00 08/09/21 18:45 IV 55 mcg/kg/min .Q0M [facility] 41.118 mls/hr Administration Protocol Titrate Cisatracurium Besylate 200 mg/ 200 mls @ 7.893 mls/hr 08/07/21 04:15 08/09/21 18:44 Sodium Chloride IV 2 mcg/kg/min .Q24H [facility] 15.785 mls/hr Administration Protocol 1 MCG/KG/MIN Fentanyl Citrate 2,500 mcg/ 250 mls @ 6.577 mls/hr 08/07/21 04:30 08/09/21 08:30 Sodium Chloride IV 0.5 mcg/kg/hr .Q24H [facility] 6.577 mls/hr Administration Protocol 0.5 MCG/KG/HR Clevidipine 25 mg/ IV Solution 50 mls @ 2 mls/hr 08/08/21 09:00 08/09/21 08:36 IV Not Given .Q24H [facility] Protocol 1 MG/HR Sodium Chloride 1,000 mls @ 75 mls/hr 08/09/21 10:00 08/09/21 10:03 Saline 0.9% IV 75 mls/hr .[id number] [facility] Administration Insulin Aspart 0 unit 08/08/21 00:00 08/09/21 17:46 Insulin Aspart (Novolog) 100 Unit/Ml Vial SQ Not Given Q6H [facility] Protocol Metoprolol Tartrate 25 mg 08/01/21 12:00 08/09/21 10:55 Metoprolol Tartrate 25 Mg Tab PO Not Given BID [facility] Naloxone HCl 0.2 mg 08/07/21 03:00 Naloxone 0.4 Mg/Ml 1 Ml Vial IV Q2M PRN Opioid Reversal Pantoprazole Sodium 40 mg 08/08/21 21:00 08/09/21 08:34 Pantoprazole 40 Mg/10 Ml Vial IVP 40 mg BID [facility] Administration Zinc Sulfate 220 mg 07/31/21 09:00 08/09/21 08:35 Zinc Sulfate 220 Mg Cap PO 220 mg DAILY [facility] Administration Objective - Vital Signs Vital signs: Vital Signs Temp 98.6 F 08/09/21 08:00 Pulse 90 08/09/21 10:00 Resp 38 H 08/09/21 10:00 BP 96/54 08/07/21 18:00 Pulse Ox 93 L 08/09/21 10:00 Intake & Output 08/08/21 08/09/21 08/09/21 18:59 06:59 18:59 Intake Total 2394.661 1750.330 691.746 Output Total 1400 1495 182 Balance 994.661 255.330 509.746 Weight 124.6 kg Intake: IV 1100 1050 325 Dextrose 5% in Water 1, 750 900 300 000 ml @ 75 mls/hr IV . [id number] [facility] with Sodium Bicarb (1 Meq/ml) 150 ml Rx#:[id number] Piperacillin-Tazobactam 3 100 150 25 .375 gm In Sodium Chloride 0.9% 100 ml @ 25 mls/hr IVPB Q8H [facility] Rx#: [id number] Sodium Chloride 0.9% 1, 250 000 ml @ 125 mls/hr IV . Q8H [facility] Rx#:[id number] Intake, IV Titration 868.661 560.330 338.746 Amount Cisatracurium 200 mg In 150.099 49.901 Sodium Chloride 0.9% 180 ml @ 1 MCG/KG/MIN 7.893 mls/hr IV .Q24H [facility] Rx#: [id number] Heparin Sod,Pork in 0.45% 500 250 108.475 NaCl 25,000 unit In 0.45 % NaCl 1 250ml.bag @ 17. 485 UNITS/KG/HR 23 mls/hr IV .[id number] [facility] Rx#: [id number] fentaNYL (PF). 2,500 mcg 78.991 154.888 In Sodium Chloride 0.9% 200 ml @ 0.5 MCG/KG/HR 6. 577 mls/hr IV .Q24H [facility] Rx#:[id number] propofoL 1,000 mg In 139.571 260.429 75.383 Empty Bag 1 bag @ Titrate IV .Q0M [facility] Rx#: [id number] Tube Feeding 336 140 28 Other 90 0 Output: Urine 1400 1495 182 Other: Voiding Method Indwelling Catheter Indwelling Catheter Indwelling Catheter ABP, PAP, CO, CI - Last Documented Arterial Blood Pressure 111/51 - Exam -GENERAL: The patient is intubated and sedated, not in any acute distress. Obese HEENT: Pupils are round and equally reacting to light. EOMI. No scleral icterus. No conjunctival pallor. Normocephalic, atraumatic. No pharyngeal erythema. No thyromegaly. CARDIOVASCULAR: S1 and S2 present. No murmurs, rubs, or gallops. -PULMONARY: Chest is clear to auscultation, no wheezing bilateral crepitation, tachypnea ABDOMEN: Soft, nontender, nondistended, normoactive bowel sounds. No palpable organomegaly. MUSCULOSKELETAL: No joint swelling or deformity. EXTREMITIES: No cyanosis, clubbing, or pedal edema. NEUROLOGICAL: Gross neurological examination did not reveal any focal deficits. SKIN: No rashes. No petechiae - Labs CBC & Chem 7: 08/09/21 04:30 08/09/21 04:30 Labs: Abnormal Lab Results - Last 24 Hours (Table) 08/08/21 08/08/21 08/08/21 Range/Units 05:08 12:14 17:59 WBC (3.8-10.6) k/uL RBC (4.30-5.90) m/uL Hgb (13.0-17.5) gm/dL Hct (39.0-53.0) % MCHC (31.0-37.0) g/dL Neutrophils # (1.3-7.7) k/uL Lymphocytes # (1.0-4.8) k/uL APTT (22.0-30.0) sec ABG pH (7.35-7.45) ABG pCO2 (35-45) mmHg ABG pO2 (83-108) mmHg ABG HCO3 (21-25) mmol/L ABG Total CO2 (19-24) mmol/L ABG O2 Saturation (94-97) % Sodium (137-145) mmol/L BUN (9-20) mg/dL Creatinine (0.66-1.25) mg/dL Glucose (74-99) mg/dL POC Glucose (mg/dL) 131 H 142 H (75-99) mg/dL Calcium (8.4-10.2) mg/dL Procalcitonin 5.50 H (0.02-0.09) ng/mL 08/08/21 08/09/21 08/09/21 Range/Units 23:10 04:30 04:30 WBC 12.1 H (3.8-10.6) k/uL RBC 3.40 L (4.30-5.90) m/uL Hgb 9.2 L (13.0-17.5) gm/dL Hct 30.3 L (39.0-53.0) % MCHC 30.3 L (31.0-37.0) g/dL Neutrophils # 10.8 H (1.3-7.7) k/uL Lymphocytes # 0.7 L (1.0-4.8) k/uL APTT (22.0-30.0) sec ABG pH (7.35-7.45) ABG pCO2 (35-45) mmHg ABG pO2 (83-108) mmHg ABG HCO3 (21-25) mmol/L ABG Total CO2 (19-24) mmol/L ABG O2 Saturation (94-97) % Sodium 136 L (137-145) mmol/L BUN 53 H (9-20) mg/dL Creatinine 2.22 H (0.66-1.25) mg/dL Glucose 112 H (74-99) mg/dL POC Glucose (mg/dL) 132 H (75-99) mg/dL Calcium 7.8 L (8.4-10.2) mg/dL Procalcitonin (0.02-0.09) ng/mL 08/09/21 08/09/21 08/09/21 Range/Units 06:01 06:06 07:45 WBC (3.8-10.6) k/uL RBC (4.30-5.90) m/uL Hgb (13.0-17.5) gm/dL Hct (39.0-53.0) % MCHC (31.0-37.0) g/dL Neutrophils # (1.3-7.7) k/uL Lymphocytes # (1.0-4.8) k/uL APTT (22.0-30.0) sec ABG pH 7.33 L (7.35-7.45) ABG pCO2 59 H 56 H (35-45) mmHg ABG pO2 58 L* 66 L (83-108) mmHg ABG HCO3 31 H 31 H (21-25) mmol/L ABG Total CO2 33 H 32 H (19-24) mmol/L ABG O2 Saturation 88.0 L 91.7 L (94-97) % Sodium (137-145) mmol/L BUN (9-20) mg/dL Creatinine (0.66-1.25) mg/dL Glucose (74-99) mg/dL POC Glucose (mg/dL) 104 H (75-99) mg/dL Calcium (8.4-10.2) mg/dL Procalcitonin (0.02-0.09) ng/mL 08/09/21 Range/Units 07:59 WBC (3.8-10.6) k/uL RBC (4.30-5.90) m/uL Hgb (13.0-17.5) gm/dL Hct (39.0-53.0) % MCHC (31.0-37.0) g/dL Neutrophils # (1.3-7.7) k/uL Lymphocytes # (1.0-4.8) k/uL APTT 41.6 H (22.0-30.0) sec ABG pH (7.35-7.45) ABG pCO2 (35-45) mmHg ABG pO2 (83-108) mmHg ABG HCO3 (21-25) mmol/L ABG Total CO2 (19-24) mmol/L ABG O2 Saturation (94-97) % Sodium (137-145) mmol/L BUN (9-20) mg/dL Creatinine (0.66-1.25) mg/dL Glucose (74-99) mg/dL POC Glucose (mg/dL) (75-99) mg/dL Calcium (8.4-10.2) mg/dL Procalcitonin (0.02-0.09) ng/mL Microbiology - Last 24 Hours (Table) 08/06/21 10:41 Blood Culture - Preliminary Blood No Growth after 48 hours 08/06/21 10:33 Blood Culture - Preliminary Blood No Growth after 48 hours Assessment and Plan Assessment: Acute bilateral Covid pneumonia, with suspected bacterial superinfection mainly in the left lower lobe Acute hypoxic respiratory failure, even intubation and mechanical ventilation Elevated inflammatory markers Acute kidney injury Anemia Metabolic acidosis Elevated d-dimer Obesity with BMI of 49.8 Plan: This is a pleasant 31 years old male who presents with bilateral Covid pneumonia and hypoxia. Continue with oxygen as needed. Continue With dexamethasone . Continue with vitamin C, vitamin D and zinc. Discontinue Baricitinib . Continue with Zosyn c/w heparin drip. Start normal saline on 75 mL/h Nephrology consult. Monitor creatinine. Pulmonary/critical care team consult. Vent management Labs and medication were reviewed.. Continue same treatment. Continue with symptomatic treatment. Resume home medication. Monitor lytes and vitals. DVT and GI prophylaxis. Further recommendations depends on the clinical course of the patient DVT prophylaxis: Heparin drip GI Prophylaxis: Protonix Prognosis is guarded
[2021-08-09 23:50] LABS: Glucose,Whole Blood 119 mg/dL (75-99)
[2021-08-10] MEDS: ALBUTEROL HFA INHALER INHALATION PRN ×3 (02:32→21:11)
[2021-08-10] MEDS: PIPERACILLIN-TAZOBACTAM 3.375 GM in SODIUM CHLORIDE 0.9% 100 ML IVPB SCH ×3 (02:57→20:38)
[2021-08-10] MEDS: ARTIFICIAL TEARS-HYPROMELLOSE DROPS 15 ML BTL BOTH EYES SCH ×6 (02:58→23:34)
[2021-08-10] MEDS: CISATRACURIUM 200 MG in SODIUM CHLORIDE 0.9% 180 ML IV SCH ×2 (03:13→18:08)
[2021-08-10 04:33] LABS: HCT 27.2 % (39.0-53.0); HGB 8.4 gm/dL (13.0-17.5); Hypochromasia Moderate; MCH 27.5 pg (25.0-35.0); MCHC 30.8 g/dL (31.0-37.0); MCV 89.2 fL (80.0-100.0); Mean Platelet Volume 9.5; Platelet Count 317 k/uL (150-450); RBC 3.05 m/uL (4.30-5.90); RDW 14.1 % (11.5-15.5); WBC 11.8 k/uL (3.8-10.6)
[2021-08-10] MEDS: fentaNYL (PF). 2,500 MCG in SODIUM CHLORIDE 0.9% 200 ML IV SCH ×2 (04:40→13:24)
[2021-08-10 05:09] LABS: Albumin 2.5 g/dL (3.5-5.0); Calcium 8.1 mg/dL (8.4-10.2); Magnesium 3.2 mg/dL (1.6-2.3); Potassium 5.1 mmol/L (3.5-5.1); Total Bilirubin 0.5 mg/dL (0.2-1.3); Total Protein 5.5 g/dL (6.3-8.2)
[2021-08-10 05:48] LABS: ABG Base Excess 2.9 mmol/L; ABG HCO3 29 mmol/L (21-25); ABG PCO2 52 mmHg (35-45); ABG PH 7.35 (7.35-7.45); ABG PO2 65 mmHg (83-108); ABG TCO2 30 mmol/L (19-24); Allen Test Performed? Yes
[2021-08-10 06:06] LABS: Glucose,Whole Blood 115 mg/dL (75-99)
[2021-08-10] MEDS: INSULIN ASPART (NovoLOG) 100 UNIT/ML VIAL SQ SCH ×4 (06:18→23:42)
--- NOTE | 2021-08-10 07:27 | XR ---
EXAMINATION TYPE: XR chest 1V portable DATE OF EXAM: 08/10/2021 COMPARISON: Chest x-ray 08/09/2021 HISTORY: Intubated TECHNIQUE: Single frontal view of the chest is obtained. FINDINGS: Endotracheal tube, NG tube, left subclavian central venous catheter are overlying appropri ate positions. Patient is rotated. Airspace disease is present, groundglass opacity noted bilaterally , left hemidiaphragms obscured. Heart size is stable. No evident pneumothorax, difficult to exclude p leural effusion. IMPRESSION: Correlate for pneumonia, edema, ARDS, possible left pleural effusion
--- NOTE | 2021-08-10 07:58 | P.PN ---
Subjective Patient is seen in follow-up for acute kidney injury. Renal function stable. Nonoliguric. Receiving IV fluids. On 50% FiO2. Vital signs are stable. HEENT: Head exam is unremarkable. Intubated. LUNGS: Breath sounds decreased. HEART: Rate and Rhythm are regular. ABDOMEN: Soft, obese. EXTREMITITES: Trace edema. Objective - Vital Signs Vital signs: Vital Signs Temp 98.1 F 08/10/21 04:00 Pulse 86 08/10/21 07:00 Resp 38 H 08/10/21 07:00 BP 96/54 08/07/21 18:00 Pulse Ox 94 L 08/10/21 07:00 Intake & Output 08/09/21 08/10/21 08/10/21 18:59 06:59 18:59 Intake Total 2108.337 2769.253 106 Output Total 912 1020 125 Balance 8611.310 2734.253 -19 Weight 124.6 kg 128 kg Intake: IV 458 236 3 Dextrose 5% in Water 1, 300 000 ml @ 75 mls/hr IV . [id number] [facility] with Sodium Bicarb (1 Meq/ml) 150 ml Rx#:[id number] Piperacillin-Tazobactam 3 125 200 .375 gm In Sodium Chloride 0.9% 100 ml @ 25 mls/hr IVPB Q8H [facility] Rx#: [id number] pressure bag .9 33 36 3 Intake, IV Titration 0883.923 9382.253 75 Amount Cisatracurium 200 mg In 166.269 161.403 Sodium Chloride 0.9% 180 ml @ 1 MCG/KG/MIN 7.893 mls/hr IV .Q24H [facility] Rx#: [id number] Heparin Sod,Pork in 0.45% 301.801 317.725 NaCl 25,000 unit In 0.45 % NaCl 1 250ml.bag @ 17. 485 UNITS/KG/HR 23 mls/hr IV .[id number] [facility] Rx#: [id number] Sodium Chloride 0.9% 1, 600 900 75 000 ml @ 75 mls/hr IV . [id number] [facility] Rx#:[id number] fentaNYL (PF). 2,500 mcg 154.888 115.974 In Sodium Chloride 0.9% 200 ml @ 0.5 MCG/KG/HR 6. 577 mls/hr IV .Q24H [facility] Rx#:[id number] propofoL 1,000 mg In 371.379 584.151 Empty Bag 1 bag @ Titrate IV .Q0M [facility] Rx#: [id number] Tube Feeding 56 364 28 Other 90 Output: Urine 912 1020 125 Other: Voiding Method Indwelling Catheter Indwelling Catheter ABP, PAP, CO, CI - Last Documented Arterial Blood Pressure 126/63 - Labs CBC & Chem 7: 08/10/21 04:00 08/10/21 04:00 Labs: Abnormal Lab Results - Last 24 Hours (Table) 08/09/21 08/09/21 08/09/21 Range/Units 07:59 11:21 14:51 WBC (3.8-10.6) k/uL RBC (4.30-5.90) m/uL Hgb (13.0-17.5) gm/dL Hct (39.0-53.0) % MCHC (31.0-37.0) g/dL APTT 41.6 H 96.0 H (22.0-30.0) sec ABG pCO2 (35-45) mmHg ABG pO2 (83-108) mmHg ABG HCO3 (21-25) mmol/L ABG Total CO2 (19-24) mmol/L ABG O2 Saturation (94-97) % BUN (9-20) mg/dL Creatinine (0.66-1.25) mg/dL Glucose (74-99) mg/dL POC Glucose (mg/dL) 103 H (75-99) mg/dL Calcium (8.4-10.2) mg/dL Magnesium (1.6-2.3) mg/dL ALT (4-49) U/L Total Protein (6.3-8.2) g/dL Albumin (3.5-5.0) g/dL 08/09/21 08/09/21 08/09/21 Range/Units 17:40 21:45 23:48 WBC (3.8-10.6) k/uL RBC (4.30-5.90) m/uL Hgb (13.0-17.5) gm/dL Hct (39.0-53.0) % MCHC (31.0-37.0) g/dL APTT 94.3 H (22.0-30.0) sec ABG pCO2 (35-45) mmHg ABG pO2 (83-108) mmHg ABG HCO3 (21-25) mmol/L ABG Total CO2 (19-24) mmol/L ABG O2 Saturation (94-97) % BUN (9-20) mg/dL Creatinine (0.66-1.25) mg/dL Glucose (74-99) mg/dL POC Glucose (mg/dL) 117 H 119 H (75-99) mg/dL Calcium (8.4-10.2) mg/dL Magnesium (1.6-2.3) mg/dL ALT (4-49) U/L Total Protein (6.3-8.2) g/dL Albumin (3.5-5.0) g/dL 08/10/21 08/10/21 08/10/21 Range/Units 04:00 04:00 04:00 WBC 11.8 H (3.8-10.6) k/uL RBC 3.05 L (4.30-5.90) m/uL Hgb 8.4 L (13.0-17.5) gm/dL Hct 27.2 L (39.0-53.0) % MCHC 30.8 L (31.0-37.0) g/dL APTT 84.0 H (22.0-30.0) sec ABG pCO2 (35-45) mmHg ABG pO2 (83-108) mmHg ABG HCO3 (21-25) mmol/L ABG Total CO2 (19-24) mmol/L ABG O2 Saturation (94-97) % BUN 64 H (9-20) mg/dL Creatinine 2.25 H (0.66-1.25) mg/dL Glucose 120 H (74-99) mg/dL POC Glucose (mg/dL) (75-99) mg/dL Calcium 8.1 L (8.4-10.2) mg/dL Magnesium 3.2 H (1.6-2.3) mg/dL ALT 73 H (4-49) U/L Total Protein 5.5 L (6.3-8.2) g/dL Albumin 2.5 L (3.5-5.0) g/dL 08/10/21 08/10/21 Range/Units 05:42 06:04 WBC (3.8-10.6) k/uL RBC (4.30-5.90) m/uL Hgb (13.0-17.5) gm/dL Hct (39.0-53.0) % MCHC (31.0-37.0) g/dL APTT (22.0-30.0) sec ABG pCO2 52 H (35-45) mmHg ABG pO2 65 L (83-108) mmHg ABG HCO3 29 H (21-25) mmol/L ABG Total CO2 30 H (19-24) mmol/L ABG O2 Saturation 91.0 L (94-97) % BUN (9-20) mg/dL Creatinine (0.66-1.25) mg/dL Glucose (74-99) mg/dL POC Glucose (mg/dL) 115 H (75-99) mg/dL Calcium (8.4-10.2) mg/dL Magnesium (1.6-2.3) mg/dL ALT (4-49) U/L Total Protein (6.3-8.2) g/dL Albumin (3.5-5.0) g/dL Microbiology - Last 24 Hours (Table) 08/06/21 10:41 Blood Culture - Preliminary Blood No Growth after 72 hours 08/06/21 10:33 Blood Culture - Preliminary Blood No Growth after 72 hours 08/06/21 17:00 Gram Stain - Final Sputum Sputum Culture - Final Assessment and Plan Plan: Assessment: 1. Acute kidney injury secondary to ATN secondary to COVID-19 infection and contrast-induced acute kidney injury. Renal function stable. Creatinine 2.25 today. Baseline creatinine near 1. 2. Hyperkalemia secondary to acute kidney injury. Stable. No evidence of acidosis. Blood sugars stable. 3. Acute hypoxic respiratory failure secondary to covert pneumonia and PE. On 50% FiO2. 4. Right lung PE maintained on IV heparin. 5. Benign hypertension. Plan: Maintain normal saline. Avoid nephrotoxins. Wean FiO2. Continue to monitor renal function and urine output.
[2021-08-10] MEDS: HEPARIN SOD,PORK IN 0.45% NACL 25,000 UNIT in 0.45% NACL 1 250ML.BAG IV SCH ×2 (08:47→20:39)
[2021-08-10] MEDS: amLODIPine 5 MG TAB PO SCH (08:48)
[2021-08-10] MEDS: CHLORHEXIDINE GLUCONATE 15 ML CUP MUCOUS MEM SCH ×2 (08:48→20:39)
[2021-08-10] MEDS: ZINC SULFATE 220 MG CAP PO SCH (08:48)
[2021-08-10] MEDS: METOPROLOL TARTRATE 25 MG TAB PO SCH ×2 (08:48→20:39)
[2021-08-10] MEDS: DEXAMETHASONE SOD PHOSPHATE 10 MG/ML 1 ML VIAL IV SCH ×2 (08:48→20:39)
[2021-08-10] MEDS: CHOLECALCIFEROL 25 MCG (1000 IU) TABLET PO SCH (08:48)
[2021-08-10] MEDS: ASCORBIC ACID 500 MG TAB PO SCH (08:48)
[2021-08-10] MEDS: PANTOPRAZOLE 40 MG/10 ML VIAL IVP SCH ×2 (08:48→20:39)
[2021-08-10] MEDS: CLEVIDIPINE BUTYRATE 25 MG in EMPTY BAG 1 BAG IV SCH (08:49)
[2021-08-10 11:38] LABS: Glucose,Whole Blood 110 mg/dL (75-99)
[2021-08-10 12:40] LABS: C Reactive Protein 19.9 mg/dL (<1.0)
--- NOTE | 2021-08-10 13:03 | P.PN ---
Subjective Progress Note Date: 08/10/21 Principal diagnosis: Acute hypoxic respiratory failure secondary to COVID-19 pneumonia On today's evaluation patient is seen in follow-up on 08/05/2021, he is currently on BiPAP support with pressure of 14/8, and the pulse ox is 87-93%, patient does alternate with Airvo at 60 L and 90% FiO2, and at bedtime and as needed for periods of time during the day he does go on BiPAP. He is awake and alert, he sitting up on the edge of the bed, dyspneic with exertion, but no acute distress, he remains on Bicitra neb, he is on IV Decadron, Lovenox 60 mg twice daily, he is on 0.9 normal saline at a rate of 50 ML per hour, he is on multivitamins, his latest chest x-ray from 08/04/2021 showed improved inspiration, improved right basilar focal consolidation, and persistent bilateral diffuse reticulonodular opacities in the lower lungs consistent with known COVID-19 infection. Today's labs have been reviewed, his white blood cell count is 19.1, hemoglobin is 13.1, d-dimer is 14.3, sodium is 133, the rest of electrolytes and renal profile were fairly unremarkable, his inflammatory markers are relatively stable and LDH is 2935, and CRP is 18.2, pro calcitonin level is slightly improved and is down to 0.40. His blood and sputum cultures have shown no growth. He did have a fever with a temp of 101.7F. Currently afebrile. No complaints of chest discomfort. No hemoptysis, his lower extremity Dopplers were negative for DVT. On 08/06/2021 patient seen in follow-up on medical surgical floor. Patient still requiring high flow oxygen per Airvo, and he is requiring BiPAP support most of time with pressures of 14/88 and FiO2 of 100% and his pulse ox is 87- 90%, he continues to have fevers, with a T-max 101.7F, overnight his fever pattern has improved and he still having some low-grade fevers. He is short of breath with any exertion. He continues on Decadron 6 mg daily, Baricitinib, and Lovenox at intermediate dosing at 0.5 mg/kg twice daily which is above 60 mg twice daily for this patient's weight. His d-dimer is down to 8.58 on today's labs, improved although still significantly elevated, lower extremity Dopplers were negative for any evidence of DVT. There is concern for superimposed bacterial infection, especially in view of fever, and elevated white blood cell count. Today's white count is 22.1, hemoglobin is 13, sodium is 131, rest of electrolytes were within normal limits, B1 is 27 creatinine 0.89, pro Level Was Borderline at 0.40, Also Suggestive of a Possible Super Imposed Bacterial Infection. Patient was transferred yesterday to the ICU, and around 2 AM this morning, I was notified about this patient is not doing well. Patient was noted to be desaturating, anxious, tachycardic, and patient did not improve much with Precedex. Hence I recommended intubating the patient. Patient was intubated by JILL, trace on mechanical ventilation, and he is now on assist control rate of 38, tidal volume of 375 100% FiO2 and PEEP is 18. His ABG showed a pO2 of 99 pCO2 57 pH of 7.27. Patient is on multiple drips including propofol at 50 f entanyl at 0.25 mcg/kg/h, Nimbex at 1 and he is on IV fluid 0.9 normal saline at 50 mL per hour. Patient was actually intubated around 2:45 AM this morning. Reviewed his chest x-ray, clearly showed bilateral infiltrates, consistent with COVID-19 pneumonia. His endotracheal tube is in the proper position. And his orogastric tube is also in the proper position. After reviewing his ABG, I cut down his FiO2 to 90%, may consider going higher on the PEEP, may also consider placing the patient in prone position. I have consulted interventional radiology for a PICC line placement, and I went ahead and placed a right radial arterial line. Patient will be off heparin for a couple of hours prior to the PICC line placement. I reviewed his CT angiogram of the chest from yesterday, the minor evidence of pulmonary embolism is not clinically impressive, however nonetheless the patient will need to be heparinized noticing that he has elevated d-dimer and the fact that he has COVID-19 pneumonia which is a major provoking factor for thrombus embolic disease. WBC count today is 19 hemoglobin is 11.9 his PTT was therapeutic initially at 50.1, and this morning it is 37.9, patient received a heparin bolus. Electrolytes are normal potassium is 5.1 BUN is 28 creatinine is 1.03. Medications espinoza, patient is on albuterol, amlodipine, vitamin C, Peridex, vitamin D, Nimbex, Decadron 6 mg IV push daily, fentanyl, heparin, hydralazine, metoprolol, lisinopril, Protonix, Zosyn, and zinc. Used to be on baricitimib, however because of his leukocytosis and elevated pro calcitonin, this was discontinued, and we started the patient empirically on antibiotics. Blood cultures and sputum cultures so far are negative. And they seem to be nondiagnostic so far. At one point, the patient was spiking fevers, his T-max yesterday was 99.1. The patient is seen today 08/08/2021 and follow-up in the intensive care unit. He remains intubated, sedated, paralyzed and on the mechanical ventilator. Cur rent settings are assist control at a rate of 38, tidal volume 375, FiO2 100% and a PEEP of 18. Peak pressures of 35, plateau of 33. Morning blood gases revealed a PaO2 of 205, pCO2 56, pH 7.22. He remains in sinus tachycardia currently at 104. He is currently on propofol 50 mcg/kg/m, fentanyl at 0.25 mcg/kg per hour, Nimbex at 1 mcg/kg/m, heparin drip per weight-based protocol. 0.9 normal saline at 125 ML's per hour. Staff did attempt to prone the patient yesterday however he had a significant cuff leak, significant desaturations and had to be placed back in supine position almost immediately. Chest x-ray reveals continued diffuse fine interstitial infiltrates, left greater than right with possibly some slight improvement in aeration. Blood cultures reveal no growth. Sputum cultures reveal no growth. White count 15.1. Hemoglobin 9.8. Platelets 230. Lymphocytes 0.8. Sodium 133. Potassium 5.6. Bicarb 21. Creatinine 2.88. Blood glucose 118. AST 39. ALT 61. He is continued on Decadron, Zosyn, vitamin supplements. He is currently afebrile. Not requiring pressors. He is being nourished with vital AF at 20 ML's per hour. Reevaluated today on 08/09/2021, patient remains in the ICU, intubated and mechanically ventilated, sedated and paralyzed. Ventilator settings are assist control rate of 38 tidal volume 375 FiO2 65% PEEP increased to 20 this morning. ABG earlier on a PEEP of 18 showed a pO2 of 66 pCO2 of 56 pH of 7.35. Patient is on Nimbex at 2 mcg/kg/m fentanyl 0.5 mcg/kg/h propofol at 55 mcg/kg/m still on a bicarb drip at 75 mL per hour. Patient is on enteral feeding using vital AF 28/28. Patient remains on Decadron at 6 mg IV push twice a day. Remains on heparin. Remains on the COVID-19 cocktail. Remains on albuterol, remains on GI prophylaxis. Insulin as per protocol, metoprolol Pavithra and empirically on Zosyn for his elevated pro calcitonin level. Chest x-ray continues to show bilateral interstitial infiltrates consistent with COVID-19 pneumonia not much of a change noted on the chest x-ray today. Labs, showed relatively normal CBC. PTT is 41.6, patient is on heparin, electrolytes are normal renal profile showed slight improvement to BUN is 53 creatinine 2.22. Repeat pro calcitonin yesterday was 5.5, last LDH was 2931, and C-reactive protein is elevated at 31.6 Reevaluated today on 08/10/2021, remains in the ICU intubated and mechanically ventilated, sedated and paralyzed. Thank you the settings are assist control rate 38 tidal volumes at 375 FiO2 50% PEEP of 20, peak airway pressure 39 left total pressure is 37 ABG showed a pO2 of 65 pCO2 52 pH of 7.35. Remains on multiple drips including Nimbex at 2 mcg/kg/m, propofol at 70 micrograms per kilo per minute fentanyl at 1.5 mcg/kg/m and cutting down to 1 mcg/kg/m. Remains on enteral feeding with vital AF 28/28. Remains on Decadron 6 mg twice a day remains on Zosyn and his last procalcitonin was 5.5 Chest x-ray continues to show evidence of bilateral infiltrates left seems to be more involved than the right. Labs today showed d-dimer of 1.78 down from 8.58, patient remains on heparin. CT of the chest showed nonocclusive thromboembolic disease. LDH is down to 1114 from 2931 and C-reactive protein is elevated at 19.9 but much better compared to a few days ago where it was about 32. WBC count is 11.8 hemoglobin is 8.4. Platelets are 317,000 Objective - Vital Signs Vital signs: Vital Signs Temp 98.7 F 08/10/21 08:00 Pulse 78 08/10/21 11:00 Resp 38 H 08/10/21 11:00 BP 96/54 08/07/21 18:00 Pulse Ox 94 L 08/10/21 11:00 Intake & Output 08/09/21 08/10/21 08/10/21 18:59 06:59 18:59 Intake Total 2108.337 2769.253 1076.883 Output Total 912 1020 500 Balance 3602.783 6388.253 576.883 Weight 124.6 kg 128 kg Intake: IV 458 236 15 Dextrose 5% in Water 1, 300 000 ml @ 75 mls/hr IV . [id number] MARGARITA with Sodium Bicarb (1 Meq/ml) 150 ml Rx#:[id number] Piperacillin-Tazobactam 3 125 200 .375 gm In Sodium Chloride 0.9% 100 ml @ 25 mls/hr IVPB Q8H [facility] Rx#: [id number] pressure bag .9 33 36 15 Intake, IV Titration 5490.177 9832.253 891.883 Amount Cisatracurium 200 mg In 166.269 161.403 153.381 Sodium Chloride 0.9% 180 ml @ 1 MCG/KG/MIN 7.893 mls/hr IV .Q24H [facility] Rx#: [id number] Heparin Sod,Pork in 0.45% 301.801 317.725 79.755 NaCl 25,000 unit In 0.45 % NaCl 1 250ml.bag @ 17. 485 UNITS/KG/HR 23 mls/hr IV .[id number] [facility] Rx#: [id number] Sodium Chloride 0.9% 1, 600 900 375 000 ml @ 75 mls/hr IV . [id number] [facility] Rx#:[id number] fentaNYL (PF). 2,500 mcg 154.888 115.974 83.747 In Sodium Chloride 0.9% 200 ml @ 0.5 MCG/KG/HR 6. 577 mls/hr IV .Q24H [facility] Rx#:[id number] propofoL 1,000 mg In 371.379 584.151 200.000 Empty Bag 1 bag @ Titrate IV .Q0M [facility] Rx#: [id number] Tube Feeding 56 364 140 Other 90 30 Output: Urine 912 1020 500 Other: Voiding Method Indwelling Catheter Indwelling Catheter Indwelling Catheter ABP, PAP, CO, CI - Last Documented Arterial Blood Pressure 125/59 - Exam Physical Exam: Revealed 31-year-old -[place] male, on mechanical ventilation, sedated and paralyzed. Head: Atraumatic, normocephalic. HEENT: Short obese neck. [Neck is supple.] [No neck masses.] [No thyromegaly.] [No JVD.] Endotracheal tube and orogastric tube are intact. Chest: [Symmetrical chest expansion, crackles at the bases, some wheezing noted today Cardiac Exam: Distant S1 and S2, no S3 gallop, no murmur. Abdomen: [Obese, soft, nontender, no megaly, no rebound, no guarding. Extremities: No clubbing, trace of edema, no cyanosis. Neurological Exam: Cannot assess, patient is on sedatives, narcotics, and paralytics. Psychiatric: Could not be assessed as noted above. Musculoskeletal: No deformities, could not assess range of motion. Skin: No rashes. - Labs CBC & Chem 7: 08/10/21 04:00 08/10/21 04:00 Labs: Abnormal Lab Results - Last 24 Hours (Table) 08/09/21 08/09/21 08/09/21 Range/Units 14:51 17:40 21:45 WBC (3.8-10.6) k/uL RBC (4.30-5.90) m/uL Hgb (13.0-17.5) gm/dL Hct (39.0-53.0) % MCHC (31.0-37.0) g/dL APTT 96.0 H 94.3 H (22.0-30.0) sec D-Dimer (<0.60) mg/L FEU ABG pCO2 (35-45) mmHg ABG pO2 (83-108) mmHg ABG HCO3 (21-25) mmol/L ABG Total CO2 (19-24) mmol/L ABG O2 Saturation (94-97) % BUN (9-20) mg/dL Creatinine (0.66-1.25) mg/dL Glucose (74-99) mg/dL POC Glucose (mg/dL) 117 H (75-99) mg/dL Calcium (8.4-10.2) mg/dL Magnesium (1.6-2.3) mg/dL ALT (4-49) U/L Lactate Dehydrogenase (313-618) U/L C-Reactive Protein (<1.0) mg/dL Total Protein (6.3-8.2) g/dL Albumin (3.5-5.0) g/dL 08/09/21 08/10/21 08/10/21 Range/Units 23:48 04:00 04:00 WBC 11.8 H (3.8-10.6) k/uL RBC 3.05 L (4.30-5.90) m/uL Hgb 8.4 L (13.0-17.5) gm/dL Hct 27.2 L (39.0-53.0) % MCHC 30.8 L (31.0-37.0) g/dL APTT 84.0 H (22.0-30.0) sec D-Dimer (<0.60) mg/L FEU ABG pCO2 (35-45) mmHg ABG pO2 (83-108) mmHg ABG HCO3 (21-25) mmol/L ABG Total CO2 (19-24) mmol/L ABG O2 Saturation (94-97) % BUN (9-20) mg/dL Creatinine (0.66-1.25) mg/dL Glucose (74-99) mg/dL POC Glucose (mg/dL) 119 H (75-99) mg/dL Calcium (8.4-10.2) mg/dL Magnesium (1.6-2.3) mg/dL ALT (4-49) U/L Lactate Dehydrogenase (313-618) U/L C-Reactive Protein (<1.0) mg/dL Total Protein (6.3-8.2) g/dL Albumin (3.5-5.0) g/dL 08/10/21 08/10/21 08/10/21 Range/Units 04:00 05:42 06:04 WBC (3.8-10.6) k/uL RBC (4.30-5.90) m/uL Hgb (13.0-17.5) gm/dL Hct (39.0-53.0) % MCHC (31.0-37.0) g/dL APTT (22.0-30.0) sec D-Dimer (<0.60) mg/L FEU ABG pCO2 52 H (35-45) mmHg ABG pO2 65 L (83-108) mmHg ABG HCO3 29 H (21-25) mmol/L ABG Total CO2 30 H (19-24) mmol/L ABG O2 Saturation 91.0 L (94-97) % BUN 64 H (9-20) mg/dL Creatinine 2.25 H (0.66-1.25) mg/dL Glucose 120 H (74-99) mg/dL POC Glucose (mg/dL) 115 H (75-99) mg/dL Calcium 8.1 L (8.4-10.2) mg/dL Magnesium 3.2 H (1.6-2.3) mg/dL ALT 73 H (4-49) U/L Lactate Dehydrogenase (313-618) U/L C-Reactive Protein (<1.0) mg/dL Total Protein 5.5 L (6.3-8.2) g/dL Albumin 2.5 L (3.5-5.0) g/dL 08/10/21 08/10/21 08/10/21 Range/Units 10:30 10:30 11:37 WBC (3.8-10.6) k/uL RBC (4.30-5.90) m/uL Hgb (13.0-17.5) gm/dL Hct (39.0-53.0) % MCHC (31.0-37.0) g/dL APTT (22.0-30.0) sec D-Dimer 1.78 H (<0.60) mg/L FEU ABG pCO2 (35-45) mmHg ABG pO2 (83-108) mmHg ABG HCO3 (21-25) mmol/L ABG Total CO2 (19-24) mmol/L ABG O2 Saturation (94-97) % BUN (9-20) mg/dL Creatinine (0.66-1.25) mg/dL Glucose (74-99) mg/dL POC Glucose (mg/dL) 110 H (75-99) mg/dL Calcium (8.4-10.2) mg/dL Magnesium (1.6-2.3) mg/dL ALT (4-49) U/L Lactate Dehydrogenase 1114 H (313-618) U/L C-Reactive Protein 19.9 H (<1.0) mg/dL Total Protein (6.3-8.2) g/dL Albumin (3.5-5.0) g/dL Microbiology - Last 24 Hours (Table) 08/06/21 10:41 Blood Culture - Preliminary Blood No Growth after 72 hours 08/06/21 10:33 Blood Culture - Preliminary Blood No Growth after 72 hours 08/06/21 17:00 Gram Stain - Final Sputum Sputum Culture - Final Assessment and Plan Assessment: Acute hypoxic respiratory failure secondary to worsening COVID-19 pneumonia, patient was initially admitted on 07/31, required airvo with high flow oxygen and later BiPAP, and his clinical condition deteriorated gradually, required intubation and mechanical ventilation on 08/07/2021. Patient was initially on baricitinib, however because of his intermittent fevers and elevated pro calcitonin level, he was placed on Zosyn, and baricitinib was discontinued. All cultures have been negative. Acute or possibly subacute pulmonary embolism with at least 2 nonobstructing thrombosis in the right lung, remains on heparin. We will continue heparin, may eventually transition to Eliquis. Leukocytosis, possibility of superimposed bacterial infection is not entirely ruled out, however cultures remain negative so far. Sputum cultures are nondiagnostic, showing mostly normal guero. Elevated d-dimer with negative Doppler for DVT. However considering his abnormal CT angiogram of the chest, patient remains on heparin/therapeutic. Elevated inflammatory markers secondary to COVID-19 pneumonia, trending down today compared to the last few days. Elevated liver enzymes secondary to viral over 19 pneumonia Morbid obesity with BMI of 47.2. Recommendation: Continue ventilatory support. Decrease PEEP to 18 and keep FiO2 of 55%. Continue heparin infusion, patient may have to be considered for tracheostomy and PEG tube placement next week, hence I will keep on heparin for now. Continue empiric antibiotics. Patient is on Zosyn. Again all cultures have been negative and nondiagnostic. Continue sedatives and paralytics, considering the high PEEP, patient will remain on Nimbex for now, Titrate oxygen accordingly and adjust PEEP daily. continue gi prophylaxis enteral feedings, patient is presently on vital AF prone position was attempted, was not successful. prognosis is guarded, needs to remain in the ICU. We will address possible tracheostomy and PEG tube placement next week. critical care time over 30 minutes Time with Patient: Greater than 30
[2021-08-10] MEDS: SODIUM CHLORIDE 0.9% 1,000 ML IV SCH (13:26)
[2021-08-10 17:07] LABS: Glucose,Whole Blood 119 mg/dL (75-99)
--- NOTE | 2021-08-10 21:06 | P.PN ---
Subjective This is a pleasant 31 years old -Italian man with no significant past medical history presents with dyspnea which started yesterday associated with fever and coughing. Patient tested positive for covid earlier on Thursday after he felt with fever and cough on Thursday but at that time he was not dyspneic. He denies chest pain or abdominal pain but he has diarrhea on and off. No vomiting. He is saturating 89% on 6 L oxygen via nasal cannula, afebrile. Tachypneic with a breathing rate at 23. CBC, is unremarkable. INR is normal at 1.0. Sodium is 1:30, creatinine normal at 1.1, glucose 103. AST is mildly elevated 106 and ALT mildly elevated 106. Elevated lactate dehydrogenase 2600 and C-reactive protein 20.3. Cholelithiasis positive EKG shows sinus tachycardia and [address]-T changes Chest x-ray showing bilateral infiltrates 08/01/2021 Patient sitting at bedside using 50 L of oxygen via nonrebreather. Reports slight improvement in his breathing and his chest x-ray showing somewhat improvement in that area should on both sides. He has low-grade fever today at 200. Blood pressure is stable. D-dimer is 1.87. BMP is unremarkable, liver enzymes slightly trending down. LDH slightly down at 2437 and slightly decreased and C-reactive protein 16.7. CBC and pro-calcitonin are pending Sputum and blood culture are still pending He remains on multiple vitamins, Baricitinib, dexamethasone and normal saline at 75 mL/h. Also he is on Lovenox. Norvasc is added for blood pressure control also we will add metoprolol Subjective: 08/05/21 patient still with dyspnea requiring BiPAP most of the time. He is developing fever of 101.7 today. Blood pressure 157/91. He has leukocytosis 19.1.liver enzymes Are the same. LDH elevated 2935 and C- reactive protein 18.2 his still on multiple vitamins, Baricitinib, dexamethasone and normal saline at 50 mL/h. Also he is on Lovenox therapeutic dose after his d-dimer yesterday. 08/06/2021 Patient remains on BiPAP needing higher pressures 14/8 and FiO2 of 100%. Also history of chronic fever around 100 and pro-calcitonin elevated at 0.40. This left leukocytosis around 22, LDH and C-reactive protein still elevated. D- dimer is trending down to 8.5 and CTA of the chest today showing negative for PE but bilateral groundglass opacity. Sputum culture 2 is negative. Urine analysis is negative for infection Today patient SWITCHED to heparin drip. Also he was started on Zosyn. Also dexamethasone 6 mg daily and normal saline at 50 mL per hour. Discontinue B aricitinib per pulmonary 08/07/2021 Patient respiratory status got worse and eventually patient got intubated while he is in the ICU. Pulmonary/critical care team following the patient closely and help with vent management. He has a fever of 100. Breathing rate around 29. Blood pressure is stable. WBC down to 19 K, Patient is acidotic with pH of 7.2, pCO2 of 57 which is low and high pO2 of 99. Chest x-ray showed increasing bilateral infiltrate and left lower lobe pneumonia. Repeat sputum culture is pending. First 2 samples were negative He remains on Zosyn, dexamethasone, normal saline at 50 mL per hour , heparin drip, multiple vitamins 08/08/2021 Patient remains in the ICU in critical condition and generally he is not doing well. I'll intubated and on mechanical ventilation with the pulmonary/critical care team R following closely He is hemodynamically stable, mildly tachycardic. WBC improving down to 15 but also hemoglobin dropped to 11.9 down to 9.8. And while he continued on heparin drip for suspected thrombosis secondary to his Covid infection and high d-dimer will increase his for chronic 40 mg daily and to twice a day. Patient FiO2 was lowered to 70%, he did not tolerate the prone position. He has no fever but tachypneic at 38 Today his creatinine went up 1.0 up to 2.8 with mild hyperkalemia however he is making good urine output with yellow urine in his Lees catheter bag nephrology team were consulted and bicarb drip was started for acidosis with pH of 7.22. He remains on Zosyn, dexamethasone, vitamin C, D and zinc. 08/09/2021 Remains in the ICU in critical condition. He continue on mechanical ventilation with pulmonary/critical care team on the consult. He still significantly tachypneic at 38 and leukocytosis. Possibly just at that time level 18 to 20, prone position was tried but patient could not tolerate it so avoided now. Labs showing improvement leukocytosis 12 K, hemoglobin 9.2, FiO2 lower to 55%. Creatinine improved slightly to 2.2 after starting normal saline at 75 mL/h. Chest x-ray showing the same findings of bilateral pneumonia. Dexamethasone was increased to twice daily today, normal saline 75 mL/h started. Well continued on heparin drip, Zosyn and multiple vitamins 08/10/2021 Patient condition did not change much from yesterday. He remains intubation only FiO2 lower to 55 from 70% and PEEP down to 18. With pulmonary/critical care team following the case closely. This remains tachycardia. No need for pressors. He hasn't been fever for the last 48 hours. D-dimer trending down to 1.7. WBC down to 11.8. Hemoglobin down to 8.9. Inflammatory markers improved to 114 and 19.9.. Creatinine is stable from yesterday at 2.2. Chest x-ray showing similar infiltrate both sides more on the left side. He remains on Zosyn, multiple vitamins, dexamethasone, normal saline, heparin drip. Objective - Vital Signs Vital signs: Vital Signs Temp 98.2 F 08/10/21 12:00 Pulse 86 08/10/21 14:00 Resp 38 H 08/10/21 14:00 BP 96/54 08/07/21 18:00 Pulse Ox 92 L 08/10/21 14:00 Intake & Output 08/09/21 08/10/21 08/10/21 18:59 06:59 18:59 Intake Total 2108.337 2769.253 1419.162 Output Total 912 1020 650 Balance 8511.237 6927.253 769.162 Weight 124.6 kg 128 kg Intake: IV 458 236 71 Dextrose 5% in Water 1, 300 000 ml @ 75 mls/hr IV . [id number] [facility] with Sodium Bicarb (1 Meq/ml) 150 ml Rx#:[id number] Piperacillin-Tazobactam 3 125 200 50 .375 gm In Sodium Chloride 0.9% 100 ml @ 25 mls/hr IVPB Q8H [facility] Rx#: [id number] pressure bag .9 33 36 21 Intake, IV Titration 4252.960 3448.253 1092.162 Amount Cisatracurium 200 mg In 166.269 161.403 153.381 Sodium Chloride 0.9% 180 ml @ 1 MCG/KG/MIN 7.893 mls/hr IV .Q24H [facility] Rx#: [id number] Heparin Sod,Pork in 0.45% 301.801 317.725 79.755 NaCl 25,000 unit In 0.45 % NaCl 1 250ml.bag @ 17. 485 UNITS/KG/HR 23 mls/hr IV .[id number] [facility] Rx#: [id number] Sodium Chloride 0.9% 1, 600 900 525 000 ml @ 75 mls/hr IV . [id number] [facility] Rx#:[id number] fentaNYL (PF). 2,500 mcg 154.888 115.974 134.026 In Sodium Chloride 0.9% 200 ml @ 0.5 MCG/KG/HR 6. 577 mls/hr IV .Q24H [facility] Rx#:[id number] propofoL 1,000 mg In 371.379 584.151 200.000 Empty Bag 1 bag @ Titrate IV .Q0M [facility] Rx#: [id number] Tube Feeding 56 364 196 Other 90 60 Output: Urine 912 1020 650 Other: Voiding Method Indwelling Catheter Indwelling Catheter Indwelling Catheter ABP, PAP, CO, CI - Last Documented Arterial Blood Pressure 126/54 - Exam -GENERAL: The patient is intubated and sedated, not in any acute distress. Ob sofya HEENT: Pupils are round and equally reacting to light. EOMI. No scleral icterus. No conjunctival pallor. Normocephalic, atraumatic. No pharyngeal erythema. No thyromegaly. CARDIOVASCULAR: S1 and S2 present. No murmurs, rubs, or gallops. -PULMONARY: Chest is clear to auscultation, no wheezing bilateral crepitation, tachypnea ABDOMEN: Soft, nontender, nondistended, normoactive bowel sounds. No palpable organomegaly. MUSCULOSKELETAL: No joint swelling or deformity. EXTREMITIES: No cyanosis, clubbing, or pedal edema. NEUROLOGICAL: Gross neurological examination did not reveal any focal deficits. SKIN: No rashes. No petechiae - Labs CBC & Chem 7: 08/10/21 04:00 08/10/21 04:00 Labs: Abnormal Lab Results - Last 24 Hours (Table) 08/09/21 08/09/21 08/09/21 Range/Units 14:51 17:40 21:45 WBC (3.8-10.6) k/uL RBC (4.30-5.90) m/uL Hgb (13.0-17.5) gm/dL Hct (39.0-53.0) % MCHC (31.0-37.0) g/dL APTT 96.0 H 94.3 H (22.0-30.0) sec D-Dimer (<0.60) mg/L FEU ABG pCO2 (35-45) mmHg ABG pO2 (83-108) mmHg ABG HCO3 (21-25) mmol/L ABG Total CO2 (19-24) mmol/L ABG O2 Saturation (94-97) % BUN (9-20) mg/dL Creatinine (0.66-1.25) mg/dL Glucose (74-99) mg/dL POC Glucose (mg/dL) 117 H (75-99) mg/dL Calcium (8.4-10.2) mg/dL Magnesium (1.6-2.3) mg/dL ALT (4-49) U/L Lactate Dehydrogenase (313-618) U/L C-Reactive Protein (<1.0) mg/dL Total Protein (6.3-8.2) g/dL Albumin (3.5-5.0) g/dL 08/09/21 08/10/21 08/10/21 Range/Units 23:48 04:00 04:00 WBC 11.8 H (3.8-10.6) k/uL RBC 3.05 L (4.30-5.90) m/uL Hgb 8.4 L (13.0-17.5) gm/dL Hct 27.2 L (39.0-53.0) % MCHC 30.8 L (31.0-37.0) g/dL APTT 84.0 H (22.0-30.0) sec D-Dimer (<0.60) mg/L FEU ABG pCO2 (35-45) mmHg ABG pO2 (83-108) mmHg ABG HCO3 (21-25) mmol/L ABG Total CO2 (19-24) mmol/L ABG O2 Saturation (94-97) % BUN (9-20) mg/dL Creatinine (0.66-1.25) mg/dL Glucose (74-99) mg/dL POC Glucose (mg/dL) 119 H (75-99) mg/dL Calcium (8.4-10.2) mg/dL Magnesium (1.6-2.3) mg/dL ALT (4-49) U/L Lactate Dehydrogenase (313-618) U/L C-Reactive Protein (<1.0) mg/dL Total Protein (6.3-8.2) g/dL Albumin (3.5-5.0) g/dL 08/10/21 08/10/21 08/10/21 Range/Units 04:00 05:42 06:04 WBC (3.8-10.6) k/uL RBC (4.30-5.90) m/uL Hgb (13.0-17.5) gm/dL Hct (39.0-53.0) % MCHC (31.0-37.0) g/dL APTT (22.0-30.0) sec D-Dimer (<0.60) mg/L FEU ABG pCO2 52 H (35-45) mmHg ABG pO2 65 L (83-108) mmHg ABG HCO3 29 H (21-25) mmol/L ABG Total CO2 30 H (19-24) mmol/L ABG O2 Saturation 91.0 L (94-97) % BUN 64 H (9-20) mg/dL Creatinine 2.25 H (0.66-1.25) mg/dL Glucose 120 H (74-99) mg/dL POC Glucose (mg/dL) 115 H (75-99) mg/dL Calcium 8.1 L (8.4-10.2) mg/dL Magnesium 3.2 H (1.6-2.3) mg/dL ALT 73 H (4-49) U/L Lactate Dehydrogenase (313-618) U/L C-Reactive Protein (<1.0) mg/dL Total Protein 5.5 L (6.3-8.2) g/dL Albumin 2.5 L (3.5-5.0) g/dL 08/10/21 08/10/21 08/10/21 Range/Units 10:30 10:30 11:37 WBC (3.8-10.6) k/uL RBC (4.30-5.90) m/uL Hgb (13.0-17.5) gm/dL Hct (39.0-53.0) % MCHC (31.0-37.0) g/dL APTT (22.0-30.0) sec D-Dimer 1.78 H (<0.60) mg/L FEU ABG pCO2 (35-45) mmHg ABG pO2 (83-108) mmHg ABG HCO3 (21-25) mmol/L ABG Total CO2 (19-24) mmol/L ABG O2 Saturation (94-97) % BUN (9-20) mg/dL Creatinine (0.66-1.25) mg/dL Glucose (74-99) mg/dL POC Glucose (mg/dL) 110 H (75-99) mg/dL Calcium (8.4-10.2) mg/dL Magnesium (1.6-2.3) mg/dL ALT (4-49) U/L Lactate Dehydrogenase 1114 H (313-618) U/L C-Reactive Protein 19.9 H (<1.0) mg/dL Total Protein (6.3-8.2) g/dL Albumin (3.5-5.0) g/dL Microbiology - Last 24 Hours (Table) 08/06/21 10:41 Blood Culture - Preliminary Blood No Growth after 96 hours 08/06/21 10:33 Blood Culture - Preliminary Blood No Growth after 96 hours 08/06/21 17:00 Gram Stain - Final Sputum Sputum Culture - Final Assessment and Plan Assessment: Acute bilateral Covid pneumonia, with suspected bacterial superinfection mainly in the left lower lobe Acute hypoxic respiratory failure, even intubation and mechanical ventilation Elevated inflammatory markers Acute kidney injury Anemia Metabolic acidosis Elevated d-dimer Obesity with BMI of 49.8 Plan: This is a pleasant 31 years old male who presents with bilateral Covid pneumonia and hypoxia. Continue with oxygen as needed. Continue With dexamethasone . Continue with vitamin C, vitamin D and zinc. Discontinue Baricitinib . Continue with Zosyn c/w heparin drip. Start normal saline on 75 mL/h Nephrology consult. Monitor creatinine. Pulmonary/critical care team consult. Vent management Labs and medication were reviewed.. Continue same treatment. Continue with symptomatic treatment. Resume home medication. Monitor lytes and vitals. DVT and GI prophylaxis. Further recommendations depends on the clinical course of the patient DVT prophylaxis: Heparin drip GI Prophylaxis: Protonix Prognosis is guarded
[2021-08-10 23:41] LABS: Glucose,Whole Blood 108 mg/dL (75-99)
[2021-08-11] MEDS: fentaNYL (PF). 2,500 MCG in SODIUM CHLORIDE 0.9% 200 ML IV SCH ×2 (02:23→09:04)
[2021-08-11] MEDS: SODIUM CHLORIDE 0.9% 1,000 ML IV SCH ×2 (02:25→16:41)
[2021-08-11 04:33] LABS: HCT 25.5 % (39.0-53.0); Hypochromasia Moderate; MCH 27.4 pg (25.0-35.0); MCHC 31.3 g/dL (31.0-37.0); MCV 87.5 fL (80.0-100.0); Mean Platelet Volume 9.5; Platelet Count 417 k/uL (150-450); RBC 2.92 m/uL (4.30-5.90); RDW 14.4 % (11.5-15.5); WBC 12.6 k/uL (3.8-10.6)
[2021-08-11] MEDS: PIPERACILLIN-TAZOBACTAM 3.375 GM in SODIUM CHLORIDE 0.9% 100 ML IVPB SCH ×3 (04:40→20:51)
[2021-08-11] MEDS: ARTIFICIAL TEARS-HYPROMELLOSE DROPS 15 ML BTL BOTH EYES SCH ×6 (04:40→23:05)
[2021-08-11 05:05] LABS: Albumin 2.4 g/dL (3.5-5.0); Calcium 8.3 mg/dL (8.4-10.2); Potassium 5.4 mmol/L (3.5-5.1); Total Bilirubin 0.5 mg/dL (0.2-1.3); Total Protein 5.3 g/dL (6.3-8.2)
[2021-08-11 05:23] LABS: C Reactive Protein 13.6 mg/dL (<1.0)
[2021-08-11] MEDS: INSULIN ASPART (NovoLOG) 100 UNIT/ML VIAL SQ SCH ×3 (05:33→18:33)
[2021-08-11 05:58] LABS: ABG Base Excess 1.7 mmol/L; ABG HCO3 28 mmol/L (21-25); ABG Oxygen Saturation 86.7 % (94-97); ABG PCO2 55 mmHg (35-45); ABG PH 7.31 (7.35-7.45); ABG TCO2 30 mmol/L (19-24); Allen Test Performed? Yes
[2021-08-11 06:03] LABS: ABG PO2 58 mmHg (83-108)
--- NOTE | 2021-08-11 07:33 | XR ---
EXAMINATION TYPE: XR chest 1V portable DATE OF EXAM: 08/11/2021 COMPARISON: Chest x-ray 08/10/2021 HISTORY: Intubated TECHNIQUE: Single frontal view of the chest is obtained. FINDINGS: Endotracheal tube, NG tube, left-sided PICC line are overlying appropriate positions, stab le. There are overlying artifacts. Bilateral interstitial and airspace disease persists. Cardiac medi astinal silhouette is stable accounting for rotation. No evident pneumothorax, difficult to exclude a pleural effusion. Left hemidiaphragm remains obscured. IMPRESSION: Findings are similar to prior exam. Correlate for pneumonia, pulmonary edema, ARDS
[2021-08-11] MEDS: ALBUTEROL HFA INHALER INHALATION PRN (07:37)
[2021-08-11] MEDS: METOPROLOL TARTRATE 25 MG TAB PO SCH ×2 (08:19→20:50)
[2021-08-11] MEDS: CHOLECALCIFEROL 25 MCG (1000 IU) TABLET PO SCH (08:19)
[2021-08-11] MEDS: amLODIPine 5 MG TAB PO SCH (08:19)
[2021-08-11] MEDS: ASCORBIC ACID 500 MG TAB PO SCH (08:19)
[2021-08-11] MEDS: DEXAMETHASONE SOD PHOSPHATE 10 MG/ML 1 ML VIAL IV SCH ×2 (08:20→20:51)
[2021-08-11] MEDS: CHLORHEXIDINE GLUCONATE 15 ML CUP MUCOUS MEM SCH ×2 (08:20→20:51)
[2021-08-11] MEDS: ZINC SULFATE 220 MG CAP PO SCH (08:20)
[2021-08-11] MEDS: PANTOPRAZOLE 40 MG/10 ML VIAL IVP SCH ×2 (08:20→20:50)
[2021-08-11] MEDS: CLEVIDIPINE BUTYRATE 25 MG in EMPTY BAG 1 BAG IV SCH (08:21)
[2021-08-11] MEDS: HEPARIN SODIUM 1,000 UN/ML (10ML VL) IV PRN (08:21)
[2021-08-11] MEDS ORDERED: LEVOFLOXACIN 500MG-D5W PMX 500 MG in DEXTROSE/WATER 1 100ML.BAG IVPB SCH (09:00)
[2021-08-11] MEDS: CISATRACURIUM 200 MG in SODIUM CHLORIDE 0.9% 180 ML IV SCH (09:05)
[2021-08-11] MEDS: HEPARIN SOD,PORK IN 0.45% NACL 25,000 UNIT in 0.45% NACL 1 250ML.BAG IV SCH ×2 (09:06→20:52)
--- NOTE | 2021-08-11 09:22 | P.PN ---
Subjective Patient is seen in follow-up for acute kidney injury. Renal function better. Nonoliguric. Receiving IV fluids. On 50% FiO2. Receiving tube feeds. Vital signs are stable. Intubated. Heart rhythm regular. Exam discussed with the nurse. Objective - Vital Signs Vital signs: Vital Signs Temp 98.8 F 08/11/21 04:00 Pulse 81 08/11/21 07:00 Resp 38 H 08/11/21 07:00 BP 96/54 08/07/21 18:00 Pulse Ox 96 08/11/21 07:00 Intake & Output 08/10/21 08/11/21 08/11/21 18:59 06:59 18:59 Intake Total 2287.983 2198.591 637.467 Output Total 1150 1145 75 Balance 9083.677 6089.591 562.467 Weight 130 kg Intake: IV 136 861 78 Piperacillin-Tazobactam 3 100 .375 gm In Sodium Chloride 0.9% 100 ml @ 25 mls/hr IVPB Q8H [facility] Rx#: [id number] Sodium Chloride 0.9% 1, 825 75 000 ml @ 75 mls/hr IV . [id number] [facility] Rx#:[id number] pressure bag .9 36 36 3 Intake, IV Titration 1755.983 911.591 531.467 Amount Cisatracurium 200 mg In 200.000 176.993 Sodium Chloride 0.9% 180 ml @ 1 MCG/KG/MIN 7.893 mls/hr IV .Q24H [facility] Rx#: [id number] Heparin Sod,Pork in 0.45% 221.957 86.591 222.605 NaCl 25,000 unit In 0.45 % NaCl 1 250ml.bag @ 17. 485 UNITS/KG/HR 23 mls/hr IV .[id number] [facility] Rx#: [id number] Sodium Chloride 0.9% 1, 900 75 000 ml @ 75 mls/hr IV . [id number] [facility] Rx#:[id number] fentaNYL (PF). 2,500 mcg 134.026 250 131.869 In Sodium Chloride 0.9% 200 ml @ 0.5 MCG/KG/HR 6. 577 mls/hr IV .Q24H [facility] Rx#:[id number] propofoL 1,000 mg In 300.000 500.000 Empty Bag 1 bag @ Titrate IV .Q0M [facility] Rx#: [id number] Tube Feeding 336 336 28 Other 60 90 Output: Urine 1150 1145 75 Other: Voiding Method Indwelling Catheter Indwelling Catheter ABP, PAP, CO, CI - Last Documented Arterial Blood Pressure 135/58 - Labs CBC & Chem 7: 08/11/21 04:00 08/11/21 04:00 Labs: Abnormal Lab Results - Last 24 Hours (Table) 08/10/21 08/10/21 08/10/21 Range/Units 10:30 10:30 10:30 WBC (3.8-10.6) k/uL RBC (4.30-5.90) m/uL Hgb (13.0-17.5) gm/dL Hct (39.0-53.0) % APTT 69.7 H (22.0-30.0) sec D-Dimer 1.78 H (<0.60) mg/L FEU ABG pH (7.35-7.45) ABG pCO2 (35-45) mmHg ABG pO2 (83-108) mmHg ABG HCO3 (21-25) mmol/L ABG Total CO2 (19-24) mmol/L ABG O2 Saturation (94-97) % Potassium (3.5-5.1) mmol/L Chloride (98-107) mmol/L BUN (9-20) mg/dL Creatinine (0.66-1.25) mg/dL Glucose (74-99) mg/dL POC Glucose (mg/dL) (75-99) mg/dL Calcium (8.4-10.2) mg/dL AST (17-59) U/L ALT (4-49) U/L Lactate Dehydrogenase 1114 H (313-618) U/L C-Reactive Protein 19.9 H (<1.0) mg/dL Total Protein (6.3-8.2) g/dL Albumin (3.5-5.0) g/dL 08/10/21 08/10/21 08/10/21 Range/Units 11:37 17:06 22:00 WBC (3.8-10.6) k/uL RBC (4.30-5.90) m/uL Hgb (13.0-17.5) gm/dL Hct (39.0-53.0) % APTT 47.7 H (22.0-30.0) sec D-Dimer (<0.60) mg/L FEU ABG pH (7.35-7.45) ABG pCO2 (35-45) mmHg ABG pO2 (83-108) mmHg ABG HCO3 (21-25) mmol/L ABG Total CO2 (19-24) mmol/L ABG O2 Saturation (94-97) % Potassium (3.5-5.1) mmol/L Chloride (98-107) mmol/L BUN (9-20) mg/dL Creatinine (0.66-1.25) mg/dL Glucose (74-99) mg/dL POC Glucose (mg/dL) 110 H 119 H (75-99) mg/dL Calcium (8.4-10.2) mg/dL AST (17-59) U/L ALT (4-49) U/L Lactate Dehydrogenase (313-618) U/L C-Reactive Protein (<1.0) mg/dL Total Protein (6.3-8.2) g/dL Albumin (3.5-5.0) g/dL 08/10/21 08/11/21 08/11/21 Range/Units 23:40 04:00 04:00 WBC (3.8-10.6) k/uL RBC (4.30-5.90) m/uL Hgb (13.0-17.5) gm/dL Hct (39.0-53.0) % APTT (22.0-30.0) sec D-Dimer 1.68 H (<0.60) mg/L FEU ABG pH (7.35-7.45) ABG pCO2 (35-45) mmHg ABG pO2 (83-108) mmHg ABG HCO3 (21-25) mmol/L ABG Total CO2 (19-24) mmol/L ABG O2 Saturation (94-97) % Potassium 5.4 H (3.5-5.1) mmol/L Chloride 108 H (98-107) mmol/L BUN 62 H (9-20) mg/dL Creatinine 2.00 H (0.66-1.25) mg/dL Glucose 112 H (74-99) mg/dL POC Glucose (mg/dL) 108 H (75-99) mg/dL Calcium 8.3 L (8.4-10.2) mg/dL AST 63 H (17-59) U/L ALT 123 H (4-49) U/L Lactate Dehydrogenase 1245 H (313-618) U/L C-Reactive Protein 13.6 H (<1.0) mg/dL Total Protein 5.3 L (6.3-8.2) g/dL Albumin 2.4 L (3.5-5.0) g/dL 08/11/21 08/11/21 08/11/21 Range/Units 04:00 04:00 05:47 WBC 12.6 H (3.8-10.6) k/uL RBC 2.92 L (4.30-5.90) m/uL Hgb 8.0 L (13.0-17.5) gm/dL Hct 25.5 L (39.0-53.0) % APTT 35.3 H (22.0-30.0) sec D-Dimer (<0.60) mg/L FEU ABG pH 7.31 L (7.35-7.45) ABG pCO2 55 H (35-45) mmHg ABG pO2 58 L* (83-108) mmHg ABG HCO3 28 H (21-25) mmol/L ABG Total CO2 30 H (19-24) mmol/L ABG O2 Saturation 86.7 L (94-97) % Potassium (3.5-5.1) mmol/L Chloride (98-107) mmol/L BUN (9-20) mg/dL Creatinine (0.66-1.25) mg/dL Glucose (74-99) mg/dL POC Glucose (mg/dL) (75-99) mg/dL Calcium (8.4-10.2) mg/dL AST (17-59) U/L ALT (4-49) U/L Lactate Dehydrogenase (313-618) U/L C-Reactive Protein (<1.0) mg/dL Total Protein (6.3-8.2) g/dL Albumin (3.5-5.0) g/dL Microbiology - Last 24 Hours (Table) 08/06/21 10:41 Blood Culture - Preliminary Blood No Growth after 96 hours 08/06/21 10:33 Blood Culture - Preliminary Blood No Growth after 96 hours Assessment and Plan Plan: Assessment: 1. Acute kidney injury secondary to ATN secondary to COVID-19 infection and contrast-induced acute kidney injury. Renal function better. Creatinine 2.0 today. Baseline creatinine near 1. 2. Hyperkalemia secondary to acute kidney injury. Stable. No evidence of acidosis. Blood sugars stable. ?heparin induced. 3. Acute hypoxic respiratory failure secondary to covert pneumonia and PE. On 50% FiO2. 4. Right lung PE maintained on IV heparin. 5. Benign hypertension. Plan: Maintain normal saline. Avoid nephrotoxins. Wean FiO2. Continue to monitor renal function and urine output. Change tube feeds to Nepro. Repeat potassium level this evening.
[2021-08-11 12:17] LABS: Glucose,Whole Blood 116 mg/dL (75-99)
--- NOTE | 2021-08-11 13:04 | P.PN ---
Subjective Progress Note Date: 08/11/21 Principal diagnosis: Acute hypoxic respiratory failure secondary to COVID-19 pneumonia On today's evaluation patient is seen in follow-up on 08/05/2021, he is currently on BiPAP support with pressure of 14/8, and the pulse ox is 87-93%, patient does alternate with Airvo at 60 L and 90% FiO2, and at bedtime and as needed for periods of time during the day he does go on BiPAP. He is awake and alert, he sitting up on the edge of the bed, dyspneic with exertion, but no acute distress, he remains on Bicitra neb, he is on IV Decadron, Lovenox 60 mg twice daily, he is on 0.9 normal saline at a rate of 50 ML per hour, he is on multivitamins, his latest chest x-ray from 08/04/2021 showed improved inspiration, improved right basilar focal consolidation, and persistent bilateral diffuse reticulonodular opacities in the lower lungs consistent with known COVID-19 infection. Today's labs have been reviewed, his white blood cell count is 19.1, hemoglobin is 13.1, d-dimer is 14.3, sodium is 133, the rest of electrolytes and renal profile were fairly unremarkable, his inflammatory markers are relatively stable and LDH is 2935, and CRP is 18.2, pro calcitonin level is slightly improved and is down to 0.40. His blood and sputum cultures have shown no growth. He did have a fever with a temp of 101.7F. Currently afebrile. No complaints of chest discomfort. No hemoptysis, his lower extremity Dopplers were negative for DVT. On 08/06/2021 patient seen in follow-up on medical surgical floor. Patient still requiring high flow oxygen per Airvo, and he is requiring BiPAP support most of time with pressures of 14/88 and FiO2 of 100% and his pulse ox is 87- 90%, he continues to have fevers, with a T-max 101.7F, overnight his fever pattern has improved and he still having some low-grade fevers. He is short of breath with any exertion. He continues on Decadron 6 mg daily, Baricitinib, and Lovenox at intermediate dosing at 0.5 mg/kg twice daily which is above 60 mg twice daily for this patient's weight. His d-dimer is down to 8.58 on today's labs, improved although still significantly elevated, lower extremity Dopplers were negative for any evidence of DVT. There is concern for superimposed bacterial infection, especially in view of fever, and elevated white blood cell count. Today's white count is 22.1, hemoglobin is 13, sodium is 131, rest of electrolytes were within normal limits, B1 is 27 creatinine 0.89, pro Level Was Borderline at 0.40, Also Suggestive of a Possible Super Imposed Bacterial Infection. Patient was transferred yesterday to the ICU, and around 2 AM this morning, I was notified about this patient is not doing well. Patient was noted to be desaturating, anxious, tachycardic, and patient did not improve much with Precedex. Hence I recommended intubating the patient. Patient was intubated by JILL, trace on mechanical ventilation, and he is now on assist control rate of 38, tidal volume of 375 100% FiO2 and PEEP is 18. His ABG showed a pO2 of 99 pCO2 57 pH of 7.27. Patient is on multiple drips including propofol at 50 f entanyl at 0.25 mcg/kg/h, Nimbex at 1 and he is on IV fluid 0.9 normal saline at 50 mL per hour. Patient was actually intubated around 2:45 AM this morning. Reviewed his chest x-ray, clearly showed bilateral infiltrates, consistent with COVID-19 pneumonia. His endotracheal tube is in the proper position. And his orogastric tube is also in the proper position. After reviewing his ABG, I cut down his FiO2 to 90%, may consider going higher on the PEEP, may also consider placing the patient in prone position. I have consulted interventional radiology for a PICC line placement, and I went ahead and placed a right radial arterial line. Patient will be off heparin for a couple of hours prior to the PICC line placement. I reviewed his CT angiogram of the chest from yesterday, the minor evidence of pulmonary embolism is not clinically impressive, however nonetheless the patient will need to be heparinized noticing that he has elevated d-dimer and the fact that he has COVID-19 pneumonia which is a major provoking factor for thrombus embolic disease. WBC count today is 19 hemoglobin is 11.9 his PTT was therapeutic initially at 50.1, and this morning it is 37.9, patient received a heparin bolus. Electrolytes are normal potassium is 5.1 BUN is 28 creatinine is 1.03. Medications espinoza, patient is on albuterol, amlodipine, vitamin C, Peridex, vitamin D, Nimbex, Decadron 6 mg IV push daily, fentanyl, heparin, hydralazine, metoprolol, lisinopril, Protonix, Zosyn, and zinc. Used to be on baricitimib, however because of his leukocytosis and elevated pro calcitonin, this was discontinued, and we started the patient empirically on antibiotics. Blood cultures and sputum cultures so far are negative. And they seem to be nondiagnostic so far. At one point, the patient was spiking fevers, his T-max yesterday was 99.1. The patient is seen today 08/08/2021 and follow-up in the intensive care unit. He remains intubated, sedated, paralyzed and on the mechanical ventilator. Cur rent settings are assist control at a rate of 38, tidal volume 375, FiO2 100% and a PEEP of 18. Peak pressures of 35, plateau of 33. Morning blood gases revealed a PaO2 of 205, pCO2 56, pH 7.22. He remains in sinus tachycardia currently at 104. He is currently on propofol 50 mcg/kg/m, fentanyl at 0.25 mcg/kg per hour, Nimbex at 1 mcg/kg/m, heparin drip per weight-based protocol. 0.9 normal saline at 125 ML's per hour. Staff did attempt to prone the patient yesterday however he had a significant cuff leak, significant desaturations and had to be placed back in supine position almost immediately. Chest x-ray reveals continued diffuse fine interstitial infiltrates, left greater than right with possibly some slight improvement in aeration. Blood cultures reveal no growth. Sputum cultures reveal no growth. White count 15.1. Hemoglobin 9.8. Platelets 230. Lymphocytes 0.8. Sodium 133. Potassium 5.6. Bicarb 21. Creatinine 2.88. Blood glucose 118. AST 39. ALT 61. He is continued on Decadron, Zosyn, vitamin supplements. He is currently afebrile. Not requiring pressors. He is being nourished with vital AF at 20 ML's per hour. Reevaluated today on 08/09/2021, patient remains in the ICU, intubated and mechanically ventilated, sedated and paralyzed. Ventilator settings are assist control rate of 38 tidal volume 375 FiO2 65% PEEP increased to 20 this morning. ABG earlier on a PEEP of 18 showed a pO2 of 66 pCO2 of 56 pH of 7.35. Patient is on Nimbex at 2 mcg/kg/m fentanyl 0.5 mcg/kg/h propofol at 55 mcg/kg/m still on a bicarb drip at 75 mL per hour. Patient is on enteral feeding using vital AF 28/28. Patient remains on Decadron at 6 mg IV push twice a day. Remains on heparin. Remains on the COVID-19 cocktail. Remains on albuterol, remains on GI prophylaxis. Insulin as per protocol, metoprolol Pavithra and empirically on Zosyn for his elevated pro calcitonin level. Chest x-ray continues to show bilateral interstitial infiltrates consistent with COVID-19 pneumonia not much of a change noted on the chest x-ray today. Labs, showed relatively normal CBC. PTT is 41.6, patient is on heparin, electrolytes are normal renal profile showed slight improvement to BUN is 53 creatinine 2.22. Repeat pro calcitonin yesterday was 5.5, last LDH was 2931, and C-reactive protein is elevated at 31.6 Reevaluated today on 08/10/2021, remains in the ICU intubated and mechanically ventilated, sedated and paralyzed. Thank you the settings are assist control rate 38 tidal volumes at 375 FiO2 50% PEEP of 20, peak airway pressure 39 left total pressure is 37 ABG showed a pO2 of 65 pCO2 52 pH of 7.35. Remains on multiple drips including Nimbex at 2 mcg/kg/m, propofol at 70 micrograms per kilo per minute fentanyl at 1.5 mcg/kg/m and cutting down to 1 mcg/kg/m. Remains on enteral feeding with vital AF 28/28. Remains on Decadron 6 mg twice a day remains on Zosyn and his last procalcitonin was 5.5 Chest x-ray continues to show evidence of bilateral infiltrates left seems to be more involved than the right. Labs today showed d-dimer of 1.78 down from 8.58, patient remains on heparin. CT of the chest showed nonocclusive thromboembolic disease. LDH is down to 1114 from 2931 and C-reactive protein is elevated at 19.9 but much better compared to a few days ago where it was about 32. WBC count is 11.8 hemoglobin is 8.4. Platelets are 317,000 Patient was reevaluated today on 08/11/21, patient remains in the ICU, intubated and mechanically ventilated. Patient is sedated and paralyzed, he is on Nimbex at 1.5 mcg/kg/m, fentanyl at 1 mcg/kg/h, propofol is 65 mcg/kg/h, he is also on heparin drip and he is on IV fluid at 65 mL per hour in the form of 0.9 normal saline. Patient is receiving enteral feeding vital AF Ventilator settings include assist control rate of 38 tidal volume 375 FiO2 60% PEEP of 20, ABG showed a pO2 of 58 pCO2 of 55 pH of 7.31, and this was on 55%, hence the FiO2 was increased to 60%. Patient desaturates even with a PEEP down to 18, hence I'm keeping him on a PEEP of 24 now. Chest x-ray shows bilateral infiltrates, however the left lower lobe seems to be more involved than the rest of the lungs, more infiltrate noted in the left lower lobe area. Patient remains on Zosyn, he is off baricitinib, mostly because of his elevated pro calcitonin level, and he was placed on antibiotics empirically. And will add Levaquin empirically in addition to Zosyn. Cultures so far are nondiagnostic. Patient remains on Decadron 6 mg twice a day. And he is also on the COVID-19 cocktail. Patient remains on the COVID-19 cocktail, and he remains on GI and DVT prophylaxis Objective - Vital Signs Vital signs: Vital Signs Temp 98.5 F 08/11/21 08:00 Pulse 79 08/11/21 09:00 Resp 38 H 08/11/21 09:00 BP 96/54 08/07/21 18:00 Pulse Ox 95 08/11/21 09:00 Intake & Output 08/10/21 08/11/21 08/11/21 18:59 06:59 18:59 Intake Total 2287.983 2198.591 1402.467 Output Total 1150 1145 625 Balance 2853.031 3502.591 777.467 Weight 130 kg Intake: IV 136 861 493 Piperacillin-Tazobactam 3 100 25 .375 gm In Sodium Chloride 0.9% 100 ml @ 25 mls/hr IVPB Q8H [facility] Rx#: [id number] Sodium Chloride 0.9% 1, 825 450 000 ml @ 75 mls/hr IV . [id number] [facility] Rx#:[id number] pressure bag .9 36 36 18 Intake, IV Titration 1755.983 911.591 681.467 Amount Cisatracurium 200 mg In 200.000 176.993 Sodium Chloride 0.9% 180 ml @ 1 MCG/KG/MIN 7.893 mls/hr IV .Q24H [facility] Rx#: [id number] Heparin Sod,Pork in 0.45% 221.957 86.591 222.605 NaCl 25,000 unit In 0.45 % NaCl 1 250ml.bag @ 17. 485 UNITS/KG/HR 23 mls/hr IV .[id number] [facility] Rx#: [id number] Levofloxacin 250Mg-D5w 50 Pmx 250 mg In Dextrose/ Water 1 50ml.bag @ 50 mls /hr IVPB Q24H [facility] Rx#: [id number] Sodium Chloride 0.9% 1, 900 75 000 ml @ 75 mls/hr IV . [id number] [facility] Rx#:[id number] fentaNYL (PF). 2,500 mcg 134.026 250 131.869 In Sodium Chloride 0.9% 200 ml @ 0.5 MCG/KG/HR 6. 577 mls/hr IV .Q24H [facility] Rx#:[id number] propofoL 1,000 mg In 300.000 500.000 100.00 Empty Bag 1 bag @ Titrate IV .Q0M [facility] Rx#: [id number] Tube Feeding 336 336 168 Other 60 90 60 Output: Urine 1150 1145 625 Other: Voiding Method Indwelling Catheter Indwelling Catheter ABP, PAP, CO, CI - Last Documented Arterial Blood Pressure 134/58 - Exam Physical Exam: Revealed 31-year-old -[place] male, on mechanical ventilation, sedated and paralyzed. Head: Atraumatic, normocephalic. HEENT: Short obese neck. [Neck is supple.] [No neck masses.] [No thyromegaly.] [No JVD.] Endotracheal tube and orogastric tube are intact. Chest: [Symmetrical chest expansion, crackles at the bases, some wheezing noted today Cardiac Exam: Distant S1 and S2, no S3 gallop, no murmur. Abdomen: [Obese, soft, nontender, no megaly, no rebound, no guarding. Extremities: No clubbing, trace of edema, no cyanosis. Neurological Exam: Cannot assess, patient is on sedatives, narcotics, and paralytics. Psychiatric: Could not be assessed as noted above. Musculoskeletal: No deformities, could not assess range of motion. Skin: No rashes. - Labs CBC & Chem 7: 08/11/21 04:00 08/11/21 04:00 Labs: Abnormal Lab Results - Last 24 Hours (Table) 08/10/21 08/10/21 08/10/21 Range/Units 10:30 17:06 22:00 WBC (3.8-10.6) k/uL RBC (4.30-5.90) m/uL Hgb (13.0-17.5) gm/dL Hct (39.0-53.0) % APTT 69.7 H 47.7 H (22.0-30.0) sec D-Dimer (<0.60) mg/L FEU ABG pH (7.35-7.45) ABG pCO2 (35-45) mmHg ABG pO2 (83-108) mmHg ABG HCO3 (21-25) mmol/L ABG Total CO2 (19-24) mmol/L ABG O2 Saturation (94-97) % Potassium (3.5-5.1) mmol/L Chloride (98-107) mmol/L BUN (9-20) mg/dL Creatinine (0.66-1.25) mg/dL Glucose (74-99) mg/dL POC Glucose (mg/dL) 119 H (75-99) mg/dL Calcium (8.4-10.2) mg/dL AST (17-59) U/L ALT (4-49) U/L Lactate Dehydrogenase (313-618) U/L C-Reactive Protein (<1.0) mg/dL Total Protein (6.3-8.2) g/dL Albumin (3.5-5.0) g/dL 08/10/21 08/11/21 08/11/21 Range/Units 23:40 04:00 04:00 WBC (3.8-10.6) k/uL RBC (4.30-5.90) m/uL Hgb (13.0-17.5) gm/dL Hct (39.0-53.0) % APTT (22.0-30.0) sec D-Dimer 1.68 H (<0.60) mg/L FEU ABG pH (7.35-7.45) ABG pCO2 (35-45) mmHg ABG pO2 (83-108) mmHg ABG HCO3 (21-25) mmol/L ABG Total CO2 (19-24) mmol/L ABG O2 Saturation (94-97) % Potassium 5.4 H (3.5-5.1) mmol/L Chloride 108 H (98-107) mmol/L BUN 62 H (9-20) mg/dL Creatinine 2.00 H (0.66-1.25) mg/dL Glucose 112 H (74-99) mg/dL POC Glucose (mg/dL) 108 H (75-99) mg/dL Calcium 8.3 L (8.4-10.2) mg/dL AST 63 H (17-59) U/L ALT 123 H (4-49) U/L Lactate Dehydrogenase 1245 H (313-618) U/L C-Reactive Protein 13.6 H (<1.0) mg/dL Total Protein 5.3 L (6.3-8.2) g/dL Albumin 2.4 L (3.5-5.0) g/dL 08/11/21 08/11/21 08/11/21 Range/Units 04:00 04:00 05:47 WBC 12.6 H (3.8-10.6) k/uL RBC 2.92 L (4.30-5.90) m/uL Hgb 8.0 L (13.0-17.5) gm/dL Hct 25.5 L (39.0-53.0) % APTT 35.3 H (22.0-30.0) sec D-Dimer (<0.60) mg/L FEU ABG pH 7.31 L (7.35-7.45) ABG pCO2 55 H (35-45) mmHg ABG pO2 58 L* (83-108) mmHg ABG HCO3 28 H (21-25) mmol/L ABG Total CO2 30 H (19-24) mmol/L ABG O2 Saturation 86.7 L (94-97) % Potassium (3.5-5.1) mmol/L Chloride (98-107) mmol/L BUN (9-20) mg/dL Creatinine (0.66-1.25) mg/dL Glucose (74-99) mg/dL POC Glucose (mg/dL) (75-99) mg/dL Calcium (8.4-10.2) mg/dL AST (17-59) U/L ALT (4-49) U/L Lactate Dehydrogenase (313-618) U/L C-Reactive Protein (<1.0) mg/dL Total Protein (6.3-8.2) g/dL Albumin (3.5-5.0) g/dL 08/11/21 Range/Units 12:16 WBC (3.8-10.6) k/uL RBC (4.30-5.90) m/uL Hgb (13.0-17.5) gm/dL Hct (39.0-53.0) % APTT (22.0-30.0) sec D-Dimer (<0.60) mg/L FEU ABG pH (7.35-7.45) ABG pCO2 (35-45) mmHg ABG pO2 (83-108) mmHg ABG HCO3 (21-25) mmol/L ABG Total CO2 (19-24) mmol/L ABG O2 Saturation (94-97) % Potassium (3.5-5.1) mmol/L Chloride (98-107) mmol/L BUN (9-20) mg/dL Creatinine (0.66-1.25) mg/dL Glucose (74-99) mg/dL POC Glucose (mg/dL) 116 H (75-99) mg/dL Calcium (8.4-10.2) mg/dL AST (17-59) U/L ALT (4-49) U/L Lactate Dehydrogenase (313-618) U/L C-Reactive Protein (<1.0) mg/dL Total Protein (6.3-8.2) g/dL Albumin (3.5-5.0) g/dL Microbiology - Last 24 Hours (Table) 08/06/21 10:41 Blood Culture - Preliminary Blood No Growth after 96 hours 08/06/21 10:33 Blood Culture - Preliminary Blood No Growth after 96 hours Assessment and Plan Assessment: Acute hypoxic respiratory failure secondary to worsening COVID-19 pneumonia, patient was initially admitted on 07/31, required airvo with high flow oxygen and later BiPAP, and his clinical condition deteriorated gradually, required intubation and mechanical ventilation on 08/07/2021. Patient was initially on baricitinib, however because of his intermittent fevers and elevated pro calcitonin level, he was placed on Zosyn, and baricitinib was discontinued. All cultures have been negative. Acute or possibly subacute pulmonary embolism with at least 2 nonobstructing thrombosis in the right lung, remains on heparin. We will continue heparin, may eventually transition to Eliquis. Possibly mid next week after we arrange for tracheostomy and PEG tube placement. Leukocytosis, possibility of superimposed bacterial infection is not entirely ruled out, however cultures remain negative so far. Sputum cultures are nondia gnostic, showing mostly normal guero. WBC count has been improving today the WBC count is 12.6. Elevated d-dimer with negative Doppler for DVT. However considering his abnormal CT angiogram of the chest, patient remains on heparin/therapeutic. Elevated inflammatory markers secondary to COVID-19 pneumonia, Elevated liver enzymes secondary to viral over 19 pneumonia Morbid obesity with BMI of 47.2. Recommendation: Continue ventilatory support. Continue PEEP at 20, FiO2 of 60% for now. Continue heparin infusion, patient may have to be considered for tracheostomy and PEG tube placement next week, hence I will keep on heparin for now. His was updated on his condition today, and I explained to her that normally around 10 days on mechanical ventilation, we would recommend tracheostomy and PEG tube placement, and this will likely be recommended mid next week by Dr. Bryan Continue empiric antibiotics. Patient is on Zosyn. Today I Added Levaquin. Again all cultures have been negative and nondiagnostic. Continue sedatives and paralytics, considering the high PEEP, patient will rem ain on Nimbex for now, Titrate oxygen accordingly and adjust PEEP daily. continue gi prophylaxis enteral feedings, patient is presently on vital AF prone position was attempted, was not successful. Patient desaturated, and there was a significant cuff leak during the process. This no further attempts were made. prognosis is guarded, needs to remain in the ICU. We will address possible tracheostomy and PEG tube placement next week. Had a long discussion with his about the patient's condition, and answered all her questions to her satisfaction critical care time over 30 minutes Time with Patient: Greater than 30
[2021-08-11] MEDS ORDERED: FUROSEMIDE 10 MG/ML 2 ML VIAL IV ONE (17:42)
[2021-08-11 18:17] LABS: Glucose,Whole Blood 106 mg/dL (75-99)
[2021-08-11 23:38] LABS: Glucose,Whole Blood 109 mg/dL (75-99)
[2021-08-12] MEDS: INSULIN ASPART (NovoLOG) 100 UNIT/ML VIAL SQ SCH ×5 (00:14→23:55)
[2021-08-12] MEDS: fentaNYL (PF). 2,500 MCG in SODIUM CHLORIDE 0.9% 200 ML IV SCH ×3 (01:26→17:31)
[2021-08-12] MEDS: ARTIFICIAL TEARS-HYPROMELLOSE DROPS 15 ML BTL BOTH EYES SCH ×6 (03:41→23:51)
[2021-08-12] MEDS: PIPERACILLIN-TAZOBACTAM 3.375 GM in SODIUM CHLORIDE 0.9% 100 ML IVPB SCH ×3 (03:41→19:59)
[2021-08-12 04:18] LABS: HCT 26.1 % (39.0-53.0); HGB 7.8 gm/dL (13.0-17.5); Hypochromasia Marked; MCHC 29.8 g/dL (31.0-37.0); MCV 90.5 fL (80.0-100.0); Mean Platelet Volume 8.9; Platelet Count 433 k/uL (150-450); RBC 2.88 m/uL (4.30-5.90); RDW 14.7 % (11.5-15.5)
[2021-08-12 05:05] LABS: C Reactive Protein 5.8 mg/dL (<1.0); Calcium 8.5 mg/dL (8.4-10.2); Potassium 5.3 mmol/L (3.5-5.1)
[2021-08-12 05:20] LABS: ABG Base Excess 2.4 mmol/L; ABG HCO3 28 mmol/L (21-25); ABG Oxygen Saturation 93.6 % (94-97); ABG PCO2 49 mmHg (35-45); ABG PH 7.36 (7.35-7.45); ABG PO2 70 mmHg (83-108); ABG TCO2 29 mmol/L (19-24)
[2021-08-12 05:42] LABS: Allen Test Performed? no
[2021-08-12] MEDS: SODIUM CHLORIDE 0.9% 1,000 ML IV SCH ×2 (05:50→17:32)
[2021-08-12] MEDS: CISATRACURIUM 200 MG in SODIUM CHLORIDE 0.9% 180 ML IV SCH (05:50)
--- NOTE | 2021-08-12 07:18 | XR ---
EXAMINATION TYPE: XR chest 1V portable DATE OF EXAM: 08/12/2021 COMPARISON: Chest x-ray 08/11/2021 HISTORY: Intubated TECHNIQUE: Single frontal view of the chest is obtained. FINDINGS: Endotracheal tube and NG tube, left-sided PICC line are stable and overlying appropriate p ositions. There is no evident pneumothorax. Bilateral patchy airspace disease persists. Cardiac media stinal silhouette is unchanged. No definite effusion. Lung volumes are low, patient is rotated. There are overlying artifacts. IMPRESSION: Findings similar to prior exam, correlate for pneumonia, edema, ARDS
[2021-08-12] MEDS: ALBUTEROL HFA INHALER INHALATION PRN ×4 (07:40→20:04)
[2021-08-12] MEDS: HEPARIN SOD,PORK IN 0.45% NACL 25,000 UNIT in 0.45% NACL 1 250ML.BAG IV SCH ×2 (08:18→20:00)
[2021-08-12] MEDS: amLODIPine 5 MG TAB PO SCH (08:19)
[2021-08-12] MEDS: ASCORBIC ACID 500 MG TAB PO SCH (08:19)
[2021-08-12] MEDS: ZINC SULFATE 220 MG CAP PO SCH (08:19)
[2021-08-12] MEDS: CHLORHEXIDINE GLUCONATE 15 ML CUP MUCOUS MEM SCH ×2 (08:19→19:59)
[2021-08-12] MEDS: CHOLECALCIFEROL 25 MCG (1000 IU) TABLET PO SCH (08:19)
[2021-08-12] MEDS: DEXAMETHASONE SOD PHOSPHATE 10 MG/ML 1 ML VIAL IV SCH ×2 (08:19→19:59)
[2021-08-12] MEDS: PANTOPRAZOLE 40 MG/10 ML VIAL IVP SCH ×2 (08:19→19:59)
[2021-08-12] MEDS: LEVOFLOXACIN 250MG-D5W PMX 250 MG in DEXTROSE/WATER 1 50ML.BAG IVPB SCH (08:20)
[2021-08-12] MEDS: METOPROLOL TARTRATE 25 MG TAB PO SCH ×2 (08:20→19:59)
--- NOTE | 2021-08-12 08:44 | P.PN ---
Subjective Patient is seen in follow-up for acute kidney injury. Renal function better. Nonoliguric. Receiving IV fluids. On 60% FiO2. Receiving tube feeds. Potassium level stable. Vital signs are stable. Intubated. Heart rhythm regular. Exam discussed with the nurse. Objective - Vital Signs Vital signs: Vital Signs Temp 98.9 F 08/12/21 04:00 Pulse 80 08/12/21 07:00 Resp 38 H 08/12/21 07:00 BP 96/54 08/07/21 18:00 Pulse Ox 89 L 08/12/21 07:00 Intake & Output 08/11/21 08/12/21 08/12/21 18:59 06:59 18:59 Intake Total 2450.127 2633.030 615.405 Output Total 1325 1525 100 Balance 5440.266 0095.030 515.405 Weight 129.4 kg Intake: IV 1139 1058 78 Piperacillin-Tazobactam 3 125 200 .375 gm In Sodium Chloride 0.9% 100 ml @ 25 mls/hr IVPB Q8H [facility] Rx#: [id number] Sodium Chloride 0.9% 1, 975 825 75 000 ml @ 75 mls/hr IV . [id number] [facility] Rx#:[id number] pressure bag .9 39 33 3 Intake, IV Titration 954.634 0600.030 509.405 Amount Cisatracurium 200 mg In 176.993 205.525 Sodium Chloride 0.9% 180 ml @ 1 MCG/KG/MIN 7.893 mls/hr IV .Q24H [facility] Rx#: [id number] Heparin Sod,Pork in 0.45% 222.605 239.605 232.817 NaCl 25,000 unit In 0.45 % NaCl 1 250ml.bag @ 17. 485 UNITS/KG/HR 23 mls/hr IV .[id number] [facility] Rx#: [id number] Levofloxacin 250Mg-D5w 50 Pmx 250 mg In Dextrose/ Water 1 50ml.bag @ 50 mls /hr IVPB Q24H [facility] Rx#: [id number] fentaNYL (PF). 2,500 mcg 131.869 250.00 180.648 In Sodium Chloride 0.9% 200 ml @ 0.5 MCG/KG/HR 6. 577 mls/hr IV .Q24H [facility] Rx#:[id number] propofoL 1,000 mg In 275.66 481.9 95.94 Empty Bag 1 bag @ Titrate IV .Q0M [facility] Rx#: [id number] Tube Feeding 364 308 28 Other 90 90 Output: Urine 1325 1525 100 Other: Voiding Method Indwelling Catheter Indwelling Catheter ABP, PAP, CO, CI - Last Documented Arterial Blood Pressure 129/54 - Labs CBC & Chem 7: 08/12/21 04:05 08/12/21 04:05 Labs: Abnormal Lab Results - Last 24 Hours (Table) 08/11/21 08/11/21 08/11/21 Range/Units 12:16 15:30 15:30 WBC (3.8-10.6) k/uL RBC (4.30-5.90) m/uL Hgb (13.0-17.5) gm/dL Hct (39.0-53.0) % MCHC (31.0-37.0) g/dL APTT 52.1 H (22.0-30.0) sec D-Dimer (<0.60) mg/L FEU ABG pCO2 (35-45) mmHg ABG pO2 (83-108) mmHg ABG HCO3 (21-25) mmol/L ABG Total CO2 (19-24) mmol/L ABG O2 Saturation (94-97) % Potassium 5.5 H (3.5-5.1) mmol/L Chloride (98-107) mmol/L BUN (9-20) mg/dL Creatinine (0.66-1.25) mg/dL Glucose (74-99) mg/dL POC Glucose (mg/dL) 116 H (75-99) mg/dL Lactate Dehydrogenase (313-618) U/L C-Reactive Protein (<1.0) mg/dL 08/11/21 08/11/21 08/12/21 Range/Units 18:15 23:36 04:05 WBC (3.8-10.6) k/uL RBC (4.30-5.90) m/uL Hgb (13.0-17.5) gm/dL Hct (39.0-53.0) % MCHC (31.0-37.0) g/dL APTT (22.0-30.0) sec D-Dimer 1.68 H (<0.60) mg/L FEU ABG pCO2 (35-45) mmHg ABG pO2 (83-108) mmHg ABG HCO3 (21-25) mmol/L ABG Total CO2 (19-24) mmol/L ABG O2 Saturation (94-97) % Potassium (3.5-5.1) mmol/L Chloride (98-107) mmol/L BUN (9-20) mg/dL Creatinine (0.66-1.25) mg/dL Glucose (74-99) mg/dL POC Glucose (mg/dL) 106 H 109 H (75-99) mg/dL Lactate Dehydrogenase (313-618) U/L C-Reactive Protein (<1.0) mg/dL 08/12/21 08/12/21 08/12/21 Range/Units 04:05 04:05 04:05 WBC 15.0 H (3.8-10.6) k/uL RBC 2.88 L (4.30-5.90) m/uL Hgb 7.8 L (13.0-17.5) gm/dL Hct 26.1 L (39.0-53.0) % MCHC 29.8 L (31.0-37.0) g/dL APTT 45.0 H (22.0-30.0) sec D-Dimer (<0.60) mg/L FEU ABG pCO2 (35-45) mmHg ABG pO2 (83-108) mmHg ABG HCO3 (21-25) mmol/L ABG Total CO2 (19-24) mmol/L ABG O2 Saturation (94-97) % Potassium 5.3 H (3.5-5.1) mmol/L Chloride 111 H (98-107) mmol/L BUN 60 H (9-20) mg/dL Creatinine 1.73 H (0.66-1.25) mg/dL Glucose 115 H (74-99) mg/dL POC Glucose (mg/dL) (75-99) mg/dL Lactate Dehydrogenase 1160 H (313-618) U/L C-Reactive Protein 5.8 H (<1.0) mg/dL 08/12/21 Range/Units 05:19 WBC (3.8-10.6) k/uL RBC (4.30-5.90) m/uL Hgb (13.0-17.5) gm/dL Hct (39.0-53.0) % MCHC (31.0-37.0) g/dL APTT (22.0-30.0) sec D-Dimer (<0.60) mg/L FEU ABG pCO2 49 H (35-45) mmHg ABG pO2 70 L (83-108) mmHg ABG HCO3 28 H (21-25) mmol/L ABG Total CO2 29 H (19-24) mmol/L ABG O2 Saturation 93.6 L (94-97) % Potassium (3.5-5.1) mmol/L Chloride (98-107) mmol/L BUN (9-20) mg/dL Creatinine (0.66-1.25) mg/dL Glucose (74-99) mg/dL POC Glucose (mg/dL) (75-99) mg/dL Lactate Dehydrogenase (313-618) U/L C-Reactive Protein (<1.0) mg/dL Microbiology - Last 24 Hours (Table) 08/06/21 10:41 Blood Culture - Preliminary Blood No Growth after 120 hours 08/06/21 10:33 Blood Culture - Preliminary Blood No Growth after 120 hours Assessment and Plan Plan: Assessment: 1. Acute kidney injury secondary to ATN secondary to COVID-19 infection and contrast-induced acute kidney injury. Renal function better. Creatinine 1.73 today. Baseline creatinine near 1. 2. Hyperkalemia secondary to acute kidney injury. Stable. No evidence of acidosis. Blood sugars stable. ?heparin induced. 3. Acute hypoxic respiratory failure secondary to covert pneumonia and PE. On 50% FiO2. 4. Right lung PE maintained on IV heparin. 5. Benign hypertension. Stable. Plan: Maintain normal saline - decrease rate to 50 mL an hour. Avoid nephrotoxins. Wean FiO2. Continue to monitor renal function and urine output. Change tube feeds to Nepro - to be done today. Repeat potassium level this evening - will repeat IV Lasix again is above 5.5.
[2021-08-12] MEDS: CLEVIDIPINE BUTYRATE 25 MG in EMPTY BAG 1 BAG IV SCH (09:50)
--- NOTE | 2021-08-12 10:18 | P.PN ---
Subjective This is a pleasant 31 years old -[place] man with no significant past medical history presents with dyspnea which started yesterday associated with fever and coughing. Patient tested positive for covid earlier on Thursday after he felt with fever and cough on Thursday but at that time he was not dyspneic. He denies chest pain or abdominal pain but he has diarrhea on and off. No vomiting. He is saturating 89% on 6 L oxygen via nasal cannula, afebrile. Tachypneic with a breathing rate at 23. CBC, is unremarkable. INR is normal at 1.0. Sodium is 1:30, creatinine normal at 1.1, glucose 103. AST is mildly elevated 106 and ALT mildly elevated 106. Elevated lactate dehydrogenase 2600 and C-reactive protein 20.3. Cholelithiasis positive EKG shows sinus tachycardia and [address]-T changes Chest x-ray showing bilateral infiltrates 08/01/2021 Patient sitting at bedside using 50 L of oxygen via nonrebreather. Reports slight improvement in his breathing and his chest x-ray showing somewhat improvement in that area should on both sides. He has low-grade fever today at 200. Blood pressure is stable. D-dimer is 1.87. BMP is unremarkable, liver enzymes slightly trending down. LDH slightly down at 2437 and slightly decreased and C-reactive protein 16.7. CBC and pro-calcitonin are pending Sputum and blood culture are still pending He remains on multiple vitamins, Baricitinib, dexamethasone and normal saline at 75 mL/h. Also he is on Lovenox. Norvasc is added for blood pressure control also we will add metoprolol Subjective: 08/05/21 patient still with dyspnea requiring BiPAP most of the time. He is developing fever of 101.7 today. Blood pressure 157/91. He has leukocytosis 19.1.liver enzymes Are the same. LDH elevated 2935 and C- reactive protein 18.2 his still on multiple vitamins, Baricitinib, dexamethasone and normal saline at 50 mL/h. Also he is on Lovenox therapeutic dose after his d-dimer yesterday. 08/06/2021 Patient remains on BiPAP needing higher pressures 14/8 and FiO2 of 100%. Also history of chronic fever around 100 and pro-calcitonin elevated at 0.40. This left leukocytosis around 22, LDH and C-reactive protein still elevated. D- dimer is trending down to 8.5 and CTA of the chest today showing negative for PE but bilateral groundglass opacity. Sputum culture 2 is negative. Urine analysis is negative for infection Today patient SWITCHED to heparin drip. Also he was started on Zosyn. Also dexamethasone 6 mg daily and normal saline at 50 mL per hour. Discontinue B aricitinib per pulmonary 08/07/2021 Patient respiratory status got worse and eventually patient got intubated while he is in the ICU. Pulmonary/critical care team following the patient closely and help with vent management. He has a fever of 100. Breathing rate around 29. Blood pressure is stable. WBC down to 19 K, Patient is acidotic with pH of 7.2, pCO2 of 57 which is low and high pO2 of 99. Chest x-ray showed increasing bilateral infiltrate and left lower lobe pneumonia. Repeat sputum culture is pending. First 2 samples were negative He remains on Zosyn, dexamethasone, normal saline at 50 mL per hour , heparin drip, multiple vitamins 08/08/2021 Patient remains in the ICU in critical condition and generally he is not doing well. I'll intubated and on mechanical ventilation with the pulmonary/critical care team R following closely He is hemodynamically stable, mildly tachycardic. WBC improving down to 15 but also hemoglobin dropped to 11.9 down to 9.8. And while he continued on heparin drip for suspected thrombosis secondary to his Covid infection and high d-dimer will increase his for chronic 40 mg daily and to twice a day. Patient FiO2 was lowered to 70%, he did not tolerate the prone position. He has no fever but tachypneic at 38 Today his creatinine went up 1.0 up to 2.8 with mild hyperkalemia however he is making good urine output with yellow urine in his Lees catheter bag nephrology team were consulted and bicarb drip was started for acidosis with pH of 7.22. He remains on Zosyn, dexamethasone, vitamin C, D and zinc. 08/09/2021 Remains in the ICU in critical condition. He continue on mechanical ventilation with pulmonary/critical care team on the consult. He still significantly tachypneic at 38 and leukocytosis. Possibly just at that time level 18 to 20, prone position was tried but patient could not tolerate it so avoided now. Labs showing improvement leukocytosis 12 K, hemoglobin 9.2, FiO2 lower to 55%. Creatinine improved slightly to 2.2 after starting normal saline at 75 mL/h. Chest x-ray showing the same findings of bilateral pneumonia. Dexamethasone was increased to twice daily today, normal saline 75 mL/h started. Well continued on heparin drip, Zosyn and multiple vitamins 08/10/2021 Patient condition did not change much from yesterday. He remains intubation only FiO2 lower to 55 from 70% and PEEP down to 18. With pulmonary/critical care team following the case closely. This remains tachycardia. No need for pressors. He hasn't been fever for the last 48 hours. D-dimer trending down to 1.7. WBC down to 11.8. Hemoglobin down to 8.9. Inflammatory markers improved to 114 and 19.9.. Creatinine is stable from yesterday at 2.2. Chest x-ray showing similar infiltrate both sides more on the left side. He remains on Zosyn, multiple vitamins, dexamethasone, normal saline, heparin drip. 08/11/2021 Patient remains in the ICU in critical condition. He is currently on mechanical ventilation significantly tachypneic around 38. With the floor at about 60 L/m. He is FiO2 of 60% and PEEP of 20. With pulmonary/critical care team opened and vent management. Labs showing WBC 12.6, hemoglobin slightly trending to 7.8. Lactate dehydrogenase 1245 and C-reactive protein down to 13.6. Creatinine is 2.0 Is on Zosyn, dexamethasone, normal sinus 75, heparin drip. Objective - Vital Signs Vital signs: Vital Signs Temp 98.5 F 08/11/21 08:00 Pulse 79 08/11/21 09:00 Resp 38 H 08/11/21 09:00 BP 96/54 08/07/21 18:00 Pulse Ox 95 08/11/21 09:00 Intake & Output 08/10/21 08/11/21 08/11/21 18:59 06:59 18:59 Intake Total 2287.983 2198.591 1402.467 Output Total 1150 1145 625 Balance 8594.366 1015.591 777.467 Weight 130 kg Intake: IV 136 861 493 Piperacillin-Tazobactam 3 100 25 .375 gm In Sodium Chloride 0.9% 100 ml @ 25 mls/hr IVPB Q8H [facility] Rx#: [id number] Sodium Chloride 0.9% 1, 825 450 000 ml @ 75 mls/hr IV . [id number] [facility] Rx#:[id number] pressure bag .9 36 36 18 Intake, IV Titration 1755.983 911.591 681.467 Amount Cisatracurium 200 mg In 200.000 176.993 Sodium Chloride 0.9% 180 ml @ 1 MCG/KG/MIN 7.893 mls/hr IV .Q24H [facility] Rx#: [id number] Heparin Sod,Pork in 0.45% 221.957 86.591 222.605 NaCl 25,000 unit In 0.45 % NaCl 1 250ml.bag @ 17. 485 UNITS/KG/HR 23 mls/hr IV .[id number] [facility] Rx#: [id number] Levofloxacin 250Mg-D5w 50 Pmx 250 mg In Dextrose/ Water 1 50ml.bag @ 50 mls /hr IVPB Q24H [facility] Rx#: [id number] Sodium Chloride 0.9% 1, 900 75 000 ml @ 75 mls/hr IV . [id number] [facility] Rx#:[id number] fentaNYL (PF). 2,500 mcg 134.026 250 131.869 In Sodium Chloride 0.9% 200 ml @ 0.5 MCG/KG/HR 6. 577 mls/hr IV .Q24H [facility] Rx#:[id number] propofoL 1,000 mg In 300.000 500.000 100.00 Empty Bag 1 bag @ Titrate IV .Q0M [facility] Rx#: [id number] Tube Feeding 336 336 168 Other 60 90 60 Output: Urine 1150 1145 625 Other: Voiding Method Indwelling Catheter Indwelling Catheter ABP, PAP, CO, CI - Last Documented Arterial Blood Pressure 134/58 - Exam -GENERAL: The patient is intubated and sedated, not in any acute distress. Obese HEENT: Pupils are round and equally reacting to light. EOMI. No scleral icterus. No conjunctival pallor. Normocephalic, atraumatic. No pharyngeal erythema. No thyromegaly. CARDIOVASCULAR: S1 and S2 present. No murmurs, rubs, or gallops. -PULMONARY: Chest is clear to auscultation, no wheezing bilateral crepitation, tachypnea ABDOMEN: Soft, nontender, nondistended, normoactive bowel sounds. No palpable organomegaly. MUSCULOSKELETAL: No joint swelling or deformity. EXTREMITIES: No cyanosis, clubbing, or pedal edema. NEUROLOGICAL: Gross neurological examination did not reveal any focal deficits. SKIN: No rashes. No petechiae - Labs CBC & Chem 7: 08/12/21 04:05 08/12/21 04:05 Labs: Abnormal Lab Results - Last 24 Hours (Table) 08/10/21 08/10/21 08/10/21 Range/Units 10:30 10:30 17:06 WBC (3.8-10.6) k/uL RBC (4.30-5.90) m/uL Hgb (13.0-17.5) gm/dL Hct (39.0-53.0) % APTT 69.7 H (22.0-30.0) sec D-Dimer (<0.60) mg/L FEU ABG pH (7.35-7.45) ABG pCO2 (35-45) mmHg ABG pO2 (83-108) mmHg ABG HCO3 (21-25) mmol/L ABG Total CO2 (19-24) mmol/L ABG O2 Saturation (94-97) % Potassium (3.5-5.1) mmol/L Chloride (98-107) mmol/L BUN (9-20) mg/dL Creatinine (0.66-1.25) mg/dL Glucose (74-99) mg/dL POC Glucose (mg/dL) 119 H (75-99) mg/dL Calcium (8.4-10.2) mg/dL AST (17-59) U/L ALT (4-49) U/L Lactate Dehydrogenase 1114 H (313-618) U/L C-Reactive Protein 19.9 H (<1.0) mg/dL Total Protein (6.3-8.2) g/dL Albumin (3.5-5.0) g/dL 08/10/21 08/10/21 08/11/21 Range/Units 22:00 23:40 04:00 WBC (3.8-10.6) k/uL RBC (4.30-5.90) m/uL Hgb (13.0-17.5) gm/dL Hct (39.0-53.0) % APTT 47.7 H (22.0-30.0) sec D-Dimer 1.68 H (<0.60) mg/L FEU ABG pH (7.35-7.45) ABG pCO2 (35-45) mmHg ABG pO2 (83-108) mmHg ABG HCO3 (21-25) mmol/L ABG Total CO2 (19-24) mmol/L ABG O2 Saturation (94-97) % Potassium (3.5-5.1) mmol/L Chloride (98-107) mmol/L BUN (9-20) mg/dL Creatinine (0.66-1.25) mg/dL Glucose (74-99) mg/dL POC Glucose (mg/dL) 108 H (75-99) mg/dL Calcium (8.4-10.2) mg/dL AST (17-59) U/L ALT (4-49) U/L Lactate Dehydrogenase (313-618) U/L C-Reactive Protein (<1.0) mg/dL Total Protein (6.3-8.2) g/dL Albumin (3.5-5.0) g/dL 08/11/21 08/11/21 08/11/21 Range/Units 04:00 04:00 04:00 WBC 12.6 H (3.8-10.6) k/uL RBC 2.92 L (4.30-5.90) m/uL Hgb 8.0 L (13.0-17.5) gm/dL Hct 25.5 L (39.0-53.0) % APTT 35.3 H (22.0-30.0) sec D-Dimer (<0.60) mg/L FEU ABG pH (7.35-7.45) ABG pCO2 (35-45) mmHg ABG pO2 (83-108) mmHg ABG HCO3 (21-25) mmol/L ABG Total CO2 (19-24) mmol/L ABG O2 Saturation (94-97) % Potassium 5.4 H (3.5-5.1) mmol/L Chloride 108 H (98-107) mmol/L BUN 62 H (9-20) mg/dL Creatinine 2.00 H (0.66-1.25) mg/dL Glucose 112 H (74-99) mg/dL POC Glucose (mg/dL) (75-99) mg/dL Calcium 8.3 L (8.4-10.2) mg/dL AST 63 H (17-59) U/L ALT 123 H (4-49) U/L Lactate Dehydrogenase 1245 H (313-618) U/L C-Reactive Protein 13.6 H (<1.0) mg/dL Total Protein 5.3 L (6.3-8.2) g/dL Albumin 2.4 L (3.5-5.0) g/dL 08/11/21 08/11/21 Range/Units 05:47 12:16 WBC (3.8-10.6) k/uL RBC (4.30-5.90) m/uL Hgb (13.0-17.5) gm/dL Hct (39.0-53.0) % APTT (22.0-30.0) sec D-Dimer (<0.60) mg/L FEU ABG pH 7.31 L (7.35-7.45) ABG pCO2 55 H (35-45) mmHg ABG pO2 58 L* (83-108) mmHg ABG HCO3 28 H (21-25) mmol/L ABG Total CO2 30 H (19-24) mmol/L ABG O2 Saturation 86.7 L (94-97) % Potassium (3.5-5.1) mmol/L Chloride (98-107) mmol/L BUN (9-20) mg/dL Creatinine (0.66-1.25) mg/dL Glucose (74-99) mg/dL POC Glucose (mg/dL) 116 H (75-99) mg/dL Calcium (8.4-10.2) mg/dL AST (17-59) U/L ALT (4-49) U/L Lactate Dehydrogenase (313-618) U/L C-Reactive Protein (<1.0) mg/dL Total Protein (6.3-8.2) g/dL Albumin (3.5-5.0) g/dL Microbiology - Last 24 Hours (Table) 08/06/21 10:41 Blood Culture - Preliminary Blood No Growth after 96 hours 10/05/21 10:33 Blood Culture - Preliminary Blood No Growth after 96 hours Assessment and Plan Assessment: Acute bilateral Covid pneumonia, with suspected bacterial superinfection mainly in the left lower lobe Acute hypoxic respiratory failure, even intubation and mechanical ventilation Elevated inflammatory markers Acute kidney injury Anemia Metabolic acidosis Elevated d-dimer Obesity with BMI of 49.8 Plan: This is a pleasant 31 years old male who presents with bilateral Covid pneumonia and hypoxia. Continue with oxygen as needed. Continue With dexamethasone . Continue with vitamin C, vitamin D and zinc. Discontinue Baricitinib . Continue with Zosyn c/w heparin drip. Start normal saline on 75 mL/h Nephrology consult. Monitor creatinine. Pulmonary/critical care team consult. Vent management Labs and medication were reviewed.. Continue same treatment. Continue with symptomatic treatment. Resume home medication. Monitor lytes and vitals. DVT and GI prophylaxis. Further recommendations depends on the clinical course of the patient DVT prophylaxis: Heparin drip GI Prophylaxis: Protonix Prognosis is guarded
--- NOTE | 2021-08-12 11:30 | P.PN ---
Subjective Progress Note Date: 08/12/21 Principal diagnosis: Coronavirus associated pneumonia. Acute hypoxic respiratory failure secondary to COVID-19 pneumonia On today's evaluation patient is seen in follow-up on 08/05/2021, he is currently on BiPAP support with pressure of 14/8, and the pulse ox is 87-93%, patient does alternate with Airvo at 60 L and 90% FiO2, and at bedtime and as needed for periods of time during the day he does go on BiPAP. He is awake and alert, he sitting up on the edge of the bed, dyspneic with exertion, but no acute distress, he remains on Bicitra neb, he is on IV Decadron, Lovenox 60 mg twice daily, he is on 0.9 normal saline at a rate of 50 ML per hour, he is on multivitamins, his latest chest x-ray from 08/04/2021 showed improved inspiration, improved right basilar focal consolidation, and persistent bilateral diffuse reticulonodular opacities in the lower lungs consistent with known COVID-19 infection. Today's labs have been reviewed, his white blood cell count is 19.1, hemoglobin is 13.1, d-dimer is 14.3, sodium is 133, the rest of electrolytes and renal profile were fairly unremarkable, his inflammatory markers are relatively stable and LDH is 2935, and CRP is 18.2, pro calcitonin level is slightly improved and is down to 0.40. His blood and sputum cultures have shown no growth. He did have a fever with a temp of 101.7F. Currently afebrile. No complaints of chest discomfort. No hemoptysis, his lower extremity Dopplers were negative for DVT. On 08/06/2021 patient seen in follow-up on medical surgical floor. Patient still requiring high flow oxygen per Airvo, and he is requiring BiPAP support most of time with pressures of 14/88 and FiO2 of 100% and his pulse ox is 87- 90%, he continues to have fevers, with a T-max 101.7F, overnight his fever pa ttern has improved and he still having some low-grade fevers. He is short of breath with any exertion. He continues on Decadron 6 mg daily, Baricitinib, and Lovenox at intermediate dosing at 0.5 mg/kg twice daily which is above 60 mg twice daily for this patient's weight. His d-dimer is down to 8.58 on today's labs, improved although still significantly elevated, lower extremity Dopplers were negative for any evidence of DVT. There is concern for superimposed bacterial infection, especially in view of fever, and elevated white blood cell count. Today's white count is 22.1, hemoglobin is 13, sodium is 131, rest of electrolytes were within normal limits, B1 is 27 creatinine 0.89, pro Level Was Borderline at 0.40, Also Suggestive of a Possible Super Imposed Bacterial Infection. Patient was transferred yesterday to the ICU, and around 2 AM this morning, I was notified about this patient is not doing well. Patient was noted to be desaturating, anxious, tachycardic, and patient did not improve much with Precedex. Hence I recommended intubating the patient. Patient was intubated by POWER CHECKER, trace on mechanical ventilation, and he is now on assist control rate of 38, tidal volume of 375 100% FiO2 and PEEP is 18. His ABG showed a pO2 of 99 pCO2 57 pH of 7.27. Patient is on multiple drips including propofol at 50 fentanyl at 0.25 mcg/kg/h, Nimbex at 1 and he is on IV fluid 0.9 normal saline at 50 mL per hour. Patient was actually intubated around 2:45 AM this morning. Reviewed his chest x-ray, clearly showed bilateral infiltrates, consistent with COVID-19 pneumonia. His endotracheal tube is in the proper position. And his orogastric tube is also in the proper position. After reviewing his ABG, I cut down his FiO2 to 90%, may consider going higher on the PEEP, may also consider placing the patient in prone position. I have consulted interventional radiology for a PICC line placement, and I went ahead and placed a right radial arterial line. Patient will be off heparin for a couple of hours prior to the PICC line placement. I reviewed his CT angiogram of the chest from yesterday, the minor evidence of pulmonary embolism is not clinically impressive, however nonetheless the patient will need to be heparinized noticing that he has elevated d-dimer and the fact that he has COVID-19 pneumonia which is a major provoking factor for thrombus embolic disease. WBC count today is 19 hemoglobin is 11.9 his PTT was therapeutic initially at 50.1, and this morning it is 37.9, patient received a heparin bolus. Electrolytes are normal potassium is 5.1 BUN is 28 creatinine is 1.03. Medications espinoza, patient is on albuterol, amlodipine, vitamin C, Peridex, vitamin D, Nimbex, Decadron 6 mg IV push daily, fentanyl, heparin, hydralazine, metoprolol, lisinopril, Protonix, Zosyn, and zinc. Used to be on baricitimib, however because of his leukocytosis and elevat ed pro calcitonin, this was discontinued, and we started the patient empirically on antibiotics. Blood cultures and sputum cultures so far are negative. And they seem to be nondiagnostic so far. At one point, the patient was spiking fevers, his T-max yesterday was 99.1. The patient is seen today 08/08/2021 and follow-up in the intensive care unit. He remains intubated, sedated, paralyzed and on the mechanical ventilator. Current settings are assist control at a rate of 38, tidal volume 375, FiO2 100% and a PEEP of 18. Peak pressures of 35, plateau of 33. Morning blood gases revealed a PaO2 of 205, pCO2 56, pH 7.22. He remains in sinus tachycardia currently at 104. He is currently on propofol 50 mcg/kg/m, fentanyl at 0.25 mcg/kg per hour, Nimbex at 1 mcg/kg/m, heparin drip per weight-based protocol. 0.9 normal saline at 125 ML's per hour. Staff did attempt to prone the patient yesterday however he had a significant cuff leak, significant desaturations and had to be placed back in supine position almost immediately. Chest x-ray reveals continued diffuse fine interstitial infiltrates, left greater than right with possibly some slight improvement in aeration. Blood cultures reveal no growth. Sputum cultures reveal no growth. White count 15.1. Hemoglobin 9.8. Platelets 230. Lymphocytes 0.8. Sodium 133. Potassium 5.6. Bicarb 21. Creatinine 2.88. Blood glucose 118. AST 39. ALT 61. He is continued on Decadron, Zosyn, vitamin supplements. He is currently afebrile. Not requiring pressors. He is being nourished with vital AF at 20 ML's per hour. Reevaluated today on 08/09/2021, patient remains in the ICU, intubated and mechanically ventilated, sedated and paralyzed. Ventilator settings are assist control rate of 38 tidal volume 375 FiO2 65% PEEP increased to 20 this morning. ABG earlier on a PEEP of 18 showed a pO2 of 66 pCO2 of 56 pH of 7.35. Patient is on Nimbex at 2 mcg/kg/m fentanyl 0.5 mcg/kg/h propofol at 55 mcg/kg/m still on a bicarb drip at 75 mL per hour. Patient is on enteral feeding using vital AF 28/28. Patient remains on Decadron at 6 mg IV push twice a day. Remains on heparin. Remains on the COVID-19 cocktail. Remains on albuterol, remains on GI prophylaxis. Insulin as per protocol, metoprolol Pavithra and empirically on Zosyn for his elevated pro calcitonin level. Chest x-ray continues to show bilateral interstitial infiltrates consistent with COVID-19 pneumonia not much of a change noted on the chest x-ray today. Labs, showed relatively normal CBC. PTT is 41.6, patient is on heparin, electrolytes are normal renal profile showed slight improvement to BUN is 53 creatinine 2.22. Repeat pro calcitonin yesterday was 5.5, last LDH was 2931, and C-reactive protein is elevated at 31.6 Reevaluated today on 08/10/2021, remains in the ICU intubated and mechanically ventilated, sedated and paralyzed. Thank you the settings are assist control rate 38 tidal volumes at 375 FiO2 50% PEEP of 20, peak airway pressure 39 left total pressure is 37 ABG showed a pO2 of 65 pCO2 52 pH of 7.35. Remains on multiple drips including Nimbex at 2 mcg/kg/m, propofol at 70 micrograms per kilo per minute fentanyl at 1.5 mcg/kg/m and cutting down to 1 mcg/kg/m. Remains on enteral feeding with vital AF 28/28. Remains on Decadron 6 mg twice a day remains on Zosyn and his last procalcitonin was 5.5 Chest x-ray continues to show evidence of bilateral infiltrates left seems to be more involved than the right. Labs today showed d-dimer of 1.78 down from 8.58, patient remains on heparin. CT of the chest showed nonocclusive thromboembolic disease. LDH is down to 1114 from 2931 and C-reactive protein is elevated at 19.9 but much better compared to a few days ago where it was about 32. WBC count is 11.8 hemoglobin is 8.4. Platelets are 317,000 Patient was reevaluated today on 08/11/21, patient remains in the ICU, intubated and mechanically ventilated. Patient is sedated and paralyzed, he is on Nimbex at 1.5 mcg/kg/m, fentanyl at 1 mcg/kg/h, propofol is 65 mcg/kg/h, he is also on heparin drip and he is on IV fluid at 65 mL per hour in the form of 0.9 normal saline. Patient is receiving enteral feeding vital AF Ventilator settings include assist control rate of 38 tidal volume 375 FiO2 60% PEEP of 20, ABG showed a pO2 of 58 pCO2 of 55 pH of 7.31, and this was on 55%, hence the FiO2 was increased to 60%. Patient desaturates even with a PEEP down to 18, hence I'm keeping him on a PEEP of 24 now. Chest x-ray shows bilateral infiltrates, however the left lower lobe seems to be more involved than the rest of the lungs, more infiltrate noted in the left lower lobe area. Patient remains on Zosyn, he is off baricitinib, mostly because of his elevated pro calcitonin level, and he was placed on antibiotics empirically. And will add Levaquin empirically in addition to Zosyn. Cultures so far are nondiagnostic. Patient remains on Decadron 6 mg twice a day. And he is also on the COVID-19 cocktail. Patient remains on the COVID-19 cocktail, and he remains on GI and DVT prophylaxis Progress note dated 08/12/2021. 31-year-old black male, again seen in the intensive care unit, room 262. The patient was admitted on July 31 with coronavirus associated pneumonia. He was moved to the intensive care unit on August 06 and intubated on the same day for worsening respiratory failure with hypoxemia. Currently, the patient remains on the mechanical ventilator. He is on the volume assist control mode, rate 38, tidal volume 375, FiO2 60%, to be decreased to 50%, and PEEP of 20. Arterial blood gases show pO2 of 70, pCO2 of 49, and a pH is 7.36. The patient is receiving saline at 50 mL an hour, propofol 60 mcg/kg/m, Nimbex at 2 mcg/kg/m with train of four monitoring, heparin via weightbase protocol, fentanyl at 2 mcg/kg/h, and vital AF at goal, which is 28 mL an hour. White count 15, hemoglobin 7.8, hematocrit 26.1, and platelet count 433,000. D-dimer was 1.68. Sodium 140, potassium 5.3, chlorides 111, CO2 25, anion gap 4, BUN 60, and creatinine 1.73. LDH is 1160. C-reactive protein is 5.8. Chest x-ray shows diffuse bilateral infiltrates. This is consistent with his known diagnosis of coronavirus associated pneumonia. Endotracheal tube is about 3-1/2 cm above the tracheal delmer. Objective - Vital Signs Vital signs: Vital Signs Temp 97.5 F L 08/12/21 08:00 Pulse 73 08/12/21 10:00 Resp 38 H 08/12/21 10:00 BP 96/54 08/07/21 18:00 Pulse Ox 86 L 08/12/21 10:00 Intake & Output 08/11/21 08/12/21 08/12/21 18:59 06:59 18:59 Intake Total 2450.127 2633.030 1017.493 Output Total 1325 1525 700 Balance 2693.563 9724.030 317.493 Weight 129.4 kg 129.4 kg Intake: IV 1139 1058 340 Piperacillin-Tazobactam 3 125 200 .375 gm In Sodium Chloride 0.9% 100 ml @ 25 mls/hr IVPB Q8H [facility] Rx#: [id number] Sodium Chloride 0.9% 1, 975 825 325 000 ml @ 50 mls/hr IV . Q20H [facility] Rx#:[id number] pressure bag .9 39 33 15 Intake, IV Titration 929.901 3066.030 621.493 Amount Cisatracurium 200 mg In 176.993 205.525 62.088 Sodium Chloride 0.9% 180 ml @ 1 MCG/KG/MIN 7.893 mls/hr IV .Q24H [facility] Rx#: [id number] Heparin Sod,Pork in 0.45% 222.605 239.605 232.817 NaCl 25,000 unit In 0.45 % NaCl 1 250ml.bag @ 17. 485 UNITS/KG/HR 23 mls/hr IV .[id number] [facility] Rx#: [id number] Levofloxacin 250Mg-D5w 50 50 Pmx 250 mg In Dextrose/ Water 1 50ml.bag @ 50 mls /hr IVPB Q24H [facility] Rx#: [id number] fentaNYL (PF). 2,500 mcg 131.869 250.00 180.648 In Sodium Chloride 0.9% 200 ml @ 0.5 MCG/KG/HR 6. 577 mls/hr IV .Q24H [facility] Rx#:[id number] propofoL 1,000 mg In 275.66 481.9 95.94 Empty Bag 1 bag @ Titrate IV .Q0M [facility] Rx#: [id number] Tube Feeding 364 308 56 Other 90 90 Output: Urine 1325 1525 700 Other: Voiding Method Indwelling Catheter Indwelling Catheter ABP, PAP, CO, CI - Last Documented Arterial Blood Pressure 116/59 - Exam No acute distress, sedated and paralyzed, with an orally placed endotracheal tube. HEENT examination is grossly unremarkable. Neck supple. Full range of motion. No adenopathy thyromegaly or neck vein distention. Cardiovascular examination reveals regular rhythm rate. S1-S2 normal. No S3 or S4. No discernible murmur noted. Heart sounds are distant. Heart rate 73 bpm. Lungs reveal coarse bilateral rhonchi. Breath sounds equal bilaterally. No wheezes or crackles. Abdomen soft bowel sounds are heard. No masses or tenderness. Extremities are intact. No cyanosis clubbing or edema. Skin is without rash or lesion. Neurologic examination cannot be adequately assessed at this time given the level of sedation and paralysis. - Labs CBC & Chem 7: 08/12/21 04:05 08/12/21 04:05 Labs: Abnormal Lab Results - Last 24 Hours (Table) 08/11/21 08/11/21 08/11/21 Range/Units 12:16 15:30 15:30 WBC (3.8-10.6) k/uL RBC (4.30-5.90) m/uL Hgb (13.0-17.5) gm/dL Hct (39.0-53.0) % MCHC (31.0-37.0) g/dL APTT 52.1 H (22.0-30.0) sec D-Dimer (<0.60) mg/L FEU ABG pCO2 (35-45) mmHg ABG pO2 (83-108) mmHg ABG HCO3 (21-25) mmol/L ABG Total CO2 (19-24) mmol/L ABG O2 Saturation (94-97) % Potassium 5.5 H (3.5-5.1) mmol/L Chloride (98-107) mmol/L BUN (9-20) mg/dL Creatinine (0.66-1.25) mg/dL Glucose (74-99) mg/dL POC Glucose (mg/dL) 116 H (75-99) mg/dL Lactate Dehydrogenase (313-618) U/L C-Reactive Protein (<1.0) mg/dL 08/11/21 08/11/21 08/12/21 Range/Units 18:15 23:36 04:05 WBC (3.8-10.6) k/uL RBC (4.30-5.90) m/uL Hgb (13.0-17.5) gm/dL Hct (39.0-53.0) % MCHC (31.0-37.0) g/dL APTT (22.0-30.0) sec D-Dimer 1.68 H (<0.60) mg/L FEU ABG pCO2 (35-45) mmHg ABG pO2 (83-108) mmHg ABG HCO3 (21-25) mmol/L ABG Total CO2 (19-24) mmol/L ABG O2 Saturation (94-97) % Potassium (3.5-5.1) mmol/L Chloride (98-107) mmol/L BUN (9-20) mg/dL Creatinine (0.66-1.25) mg/dL Glucose (74-99) mg/dL POC Glucose (mg/dL) 106 H 109 H (75-99) mg/dL Lactate Dehydrogenase (313-618) U/L C-Reactive Protein (<1.0) mg/dL 08/12/21 08/12/21 08/12/21 Range/Units 04:05 04:05 04:05 WBC 15.0 H (3.8-10.6) k/uL RBC 2.88 L (4.30-5.90) m/uL Hgb 7.8 L (13.0-17.5) gm/dL Hct 26.1 L (39.0-53.0) % MCHC 29.8 L (31.0-37.0) g/dL APTT 45.0 H (22.0-30.0) sec D-Dimer (<0.60) mg/L FEU ABG pCO2 (35-45) mmHg ABG pO2 (83-108) mmHg ABG HCO3 (21-25) mmol/L ABG Total CO2 (19-24) mmol/L ABG O2 Saturation (94-97) % Potassium 5.3 H (3.5-5.1) mmol/L Chloride 111 H (98-107) mmol/L BUN 60 H (9-20) mg/dL Creatinine 1.73 H (0.66-1.25) mg/dL Glucose 115 H (74-99) mg/dL POC Glucose (mg/dL) (75-99) mg/dL Lactate Dehydrogenase 1160 H (313-618) U/L C-Reactive Protein 5.8 H (<1.0) mg/dL 08/12/21 Range/Units 05:19 WBC (3.8-10.6) k/uL RBC (4.30-5.90) m/uL Hgb (13.0-17.5) gm/dL Hct (39.0-53.0) % MCHC (31.0-37.0) g/dL APTT (22.0-30.0) sec D-Dimer (<0.60) mg/L FEU ABG pCO2 49 H (35-45) mmHg ABG pO2 70 L (83-108) mmHg ABG HCO3 28 H (21-25) mmol/L ABG Total CO2 29 H (19-24) mmol/L ABG O2 Saturation 93.6 L (94-97) % Potassium (3.5-5.1) mmol/L Chloride (98-107) mmol/L BUN (9-20) mg/dL Creatinine (0.66-1.25) mg/dL Glucose (74-99) mg/dL POC Glucose (mg/dL) (75-99) mg/dL Lactate Dehydrogenase (313-618) U/L C-Reactive Protein (<1.0) mg/dL Microbiology - Last 24 Hours (Table) 08/06/21 10:41 Blood Culture - Preliminary Blood No Growth after 120 hours 08/06/21 10:33 Blood Culture - Preliminary Blood No Growth after 120 hours Assessment and Plan Assessment: Acute hypoxemic respiratory failure secondary to coronavirus associated pneumonia, status post intubation and mechanical ventilation on August 06. Acute respiratory distress syndrome. Elevated inflammatory marker secondary to coronavirus infection. Acute/subacute pulmonary embolism. Elevated liver enzymes secondary to coronavirus infection. Morbid obesity. Plan: Plan dated 08/12/2021. We'll attempt to get the patient off of the paralytic if possible. I gave instructions to the nurse. In addition, we will continue with the propofol and the fentanyl for now. We'll reduce the FiO2 down from 60%, down to 50%. I told the nurses and respiratory therapist except saturations in the mid 80s or higher. The patient will continue on heparin for now. Additional recomm endations and suggestions are forthcoming. Prognosis is guarded. We will continue to follow this patient, and make recommendations where appropriate. Time with Patient: Greater than 30
[2021-08-12 12:02] LABS: Glucose,Whole Blood 110 mg/dL (75-99)
--- NOTE | 2021-08-12 15:11 | P.GSCN ---
History of Present Illness Consult date: 08/12/21 History of present illness: CHIEF COMPLAINT: COVID-19 pneumonia Reason for consult tracheostomy and PEG tube placement HISTORY OF PRESENT ILLNESS: This is a 31-year-old male who was hospitalized with acute hypoxic respiratory failure secondary to COVID-19 pneumonia. He required to be intubated on August 06. He also developed a pulmonary embolism during his admission and is currently on IV heparin. He is on high PEEP 22. Due to his prolonged mechanical ventilation I cervical service was consult is for tracheostomy and PEG tube placement. PAST MEDICAL HISTORY: Obese PAST SURGICAL HISTORY: No past surgical history MEDICATIONS: See list. ALLERGIES: See list. SOCIAL HISTORY: No illicit drug use. REVIEW OF SYSTEMS: Unable to obtain patient is intubated and sedated PHYSICAL EXAM: VITAL SIGNS: Reviewed GENERAL: Well-developed in no acute distress. HEENT: No sclera icterus. Extraocular movements grossly intact. Moist buccal mucosa. Head is atraumatic, normocephalic. No nasal drainage. ABDOMEN: Soft. Nondistended nontender NEUROLOGIC: Intubated and sedated LABORATORY DATA: WBC 15 hemoglobin 7.8 platelets 433 INR 1.68 Sodium 140 potassium 5.3 BUN 60 creatinine 1.73 Albumin 2.4 IMAGING: ASSESSMENT: 1. Acute hypoxic respiratory failure due to COVID-19 pneumonia status post mechanical intubation 2. Severe protein calorie malnutrition PLAN: -Patient is scheduled for tracheostomy and PEG tube placement on 08/14/[address] coelho -Continue ICU management -Continue supportive care Thank you for this consultation Physician Airframe And Powerplant Technician note has been reviewed by physician. Signing provider agrees with the documented findings, assessment, and plan of care. Past Medical History Past Medical History: No Reported History History of Any Multi-Drug Resistant Organisms: None Reported Past Surgical History: No Surgical Hx Reported Past Psychological History: No Psychological Hx Reported Smoking Status: Never smoker Past Alcohol Use History: None Reported Past Drug Use History: None Reported - Past Family History Mother Family Medical History: Hypertension Father Family Medical History: Hypertension Medications and Allergies Home Medications Medication Instructions Recorded Confirmed Type Ascorbic Acid [Vitamin C] 1,000 mg PO DAILY 07/31/21 07/31/21 History Aspirin EC [Ecotrin] 325 mg PO DAILY 07/31/21 07/31/21 History Cholecalciferol (Vitamin D3) 75 mcg PO DAILY 07/31/21 07/31/21 History [Vitamin D3 (3000 Iu)] Hydroxychloroquine Sulfate 200 mg PO DIRECTED 07/31/21 07/31/21 History [Plaquenil] Ibuprofen [Motrin Ib] 400 mg PO Q8H PRN 07/31/21 07/31/21 History Naproxen Sodium [Aleve] 220 mg PO Q12HR PRN 07/31/21 07/31/21 History Zinc 50 mg PO DAILY 07/31/21 07/31/21 History Allergies Allergy/AdvReac Type Severity Reaction Status Date / Time No Known Allergies Allergy Verified 07/31/21 09:16 Surgical - Exam Vital Signs Temp Pulse Resp BP Pulse Ox 99.1 F 109 H 20 159/92 84 L 07/31/21 02:04 07/31/21 02:04 07/31/21 02:04 07/31/21 02:04 07/31/21 02:04 Results - Labs 08/12/21 04:05 08/12/21 04:05 Abnormal Lab Results - Last 24 Hours (Table) 08/11/21 08/11/21 08/11/21 Range/Units 15:30 15:30 18:15 WBC (3.8-10.6) k/uL RBC (4.30-5.90) m/uL Hgb (13.0-17.5) gm/dL Hct (39.0-53.0) % MCHC (31.0-37.0) g/dL APTT 52.1 H (22.0-30.0) sec D-Dimer (<0.60) mg/L FEU ABG pCO2 (35-45) mmHg ABG pO2 (83-108) mmHg ABG HCO3 (21-25) mmol/L ABG Total CO2 (19-24) mmol/L ABG O2 Saturation (94-97) % Potassium 5.5 H (3.5-5.1) mmol/L Chloride (98-107) mmol/L BUN (9-20) mg/dL Creatinine (0.66-1.25) mg/dL Glucose (74-99) mg/dL POC Glucose (mg/dL) 106 H (75-99) mg/dL Lactate Dehydrogenase (313-618) U/L C-Reactive Protein (<1.0) mg/dL 08/11/21 08/12/21 08/12/21 Range/Units 23:36 04:05 04:05 WBC (3.8-10.6) k/uL RBC (4.30-5.90) m/uL Hgb (13.0-17.5) gm/dL Hct (39.0-53.0) % MCHC (31.0-37.0) g/dL APTT (22.0-30.0) sec D-Dimer 1.68 H (<0.60) mg/L FEU ABG pCO2 (35-45) mmHg ABG pO2 (83-108) mmHg ABG HCO3 (21-25) mmol/L ABG Total CO2 (19-24) mmol/L ABG O2 Saturation (94-97) % Potassium 5.3 H (3.5-5.1) mmol/L Chloride 111 H (98-107) mmol/L BUN 60 H (9-20) mg/dL Creatinine 1.73 H (0.66-1.25) mg/dL Glucose 115 H (74-99) mg/dL POC Glucose (mg/dL) 109 H (75-99) mg/dL Lactate Dehydrogenase 1160 H (313-618) U/L C-Reactive Protein 5.8 H (<1.0) mg/dL 08/12/21 08/12/21 08/12/21 Range/Units 04:05 04:05 05:19 WBC 15.0 H (3.8-10.6) k/uL RBC 2.88 L (4.30-5.90) m/uL Hgb 7.8 L (13.0-17.5) gm/dL Hct 26.1 L (39.0-53.0) % MCHC 29.8 L (31.0-37.0) g/dL APTT 45.0 H (22.0-30.0) sec D-Dimer (<0.60) mg/L FEU ABG pCO2 49 H (35-45) mmHg ABG pO2 70 L (83-108) mmHg ABG HCO3 28 H (21-25) mmol/L ABG Total CO2 29 H (19-24) mmol/L ABG O2 Saturation 93.6 L (94-97) % Potassium (3.5-5.1) mmol/L Chloride (98-107) mmol/L BUN (9-20) mg/dL Creatinine (0.66-1.25) mg/dL Glucose (74-99) mg/dL POC Glucose (mg/dL) (75-99) mg/dL Lactate Dehydrogenase (313-618) U/L C-Reactive Protein (<1.0) mg/dL 08/12/21 Range/Units 12:01 WBC (3.8-10.6) k/uL RBC (4.30-5.90) m/uL Hgb (13.0-17.5) gm/dL Hct (39.0-53.0) % MCHC (31.0-37.0) g/dL APTT (22.0-30.0) sec D-Dimer (<0.60) mg/L FEU ABG pCO2 (35-45) mmHg ABG pO2 (83-108) mmHg ABG HCO3 (21-25) mmol/L ABG Total CO2 (19-24) mmol/L ABG O2 Saturation (94-97) % Potassium (3.5-5.1) mmol/L Chloride (98-107) mmol/L BUN (9-20) mg/dL Creatinine (0.66-1.25) mg/dL Glucose (74-99) mg/dL POC Glucose (mg/dL) 110 H (75-99) mg/dL Lactate Dehydrogenase (313-618) U/L C-Reactive Protein (<1.0) mg/dL Microbiology - Last 24 Hours (Table) 08/06/21 10:33 Blood Culture - Final Blood No Growth after 144 hours 08/06/21 10:41 Blood Culture - Final Blood No Growth after 144 hours Diabetes panel 08/11/21 08/12/21 Range/Units 15:30 04:05 Sodium 140 (137-145) mmol/L Potassium 5.5 H 5.3 H (3.5-5.1) mmol/L Chloride 111 H (98-107) mmol/L Carbon Dioxide 25 (22-30) mmol/L BUN 60 H (9-20) mg/dL Creatinine 1.73 H (0.66-1.25) mg/dL Glucose 115 H (74-99) mg/dL Calcium 8.5 (8.4-10.2) mg/dL Calcium panel 08/12/21 Range/Units 04:05 Calcium 8.5 (8.4-10.2) mg/dL Pituitary panel 08/11/21 08/12/21 Range/Units 15:30 04:05 Sodium 140 (137-145) mmol/L Potassium 5.5 H 5.3 H (3.5-5.1) mmol/L Chloride 111 H (98-107) mmol/L Carbon Dioxide 25 (22-30) mmol/L BUN 60 H (9-20) mg/dL Creatinine 1.73 H (0.66-1.25) mg/dL Glucose 115 H (74-99) mg/dL Calcium 8.5 (8.4-10.2) mg/dL Adrenal panel 08/11/21 08/12/21 Range/Units 15:30 04:05 Sodium 140 (137-145) mmol/L Potassium 5.5 H 5.3 H (3.5-5.1) mmol/L Chloride 111 H (98-107) mmol/L Carbon Dioxide 25 (22-30) mmol/L BUN 60 H (9-20) mg/dL Creatinine 1.73 H (0.66-1.25) mg/dL Glucose 115 H (74-99) mg/dL Calcium 8.5 (8.4-10.2) mg/dL
[2021-08-12 18:09] LABS: Glucose,Whole Blood 106 mg/dL (75-99)
[2021-08-12 23:55] LABS: Glucose,Whole Blood 106 mg/dL (75-99)
[2021-08-13] MEDS: CISATRACURIUM 200 MG in SODIUM CHLORIDE 0.9% 180 ML IV SCH ×3 (00:44→14:36)
[2021-08-13] MEDS: fentaNYL (PF). 2,500 MCG in SODIUM CHLORIDE 0.9% 200 ML IV SCH ×3 (02:41→19:20)
[2021-08-13] MEDS: CLEVIDIPINE BUTYRATE 25 MG in EMPTY BAG 1 BAG IV SCH ×2 (03:28→04:19)
[2021-08-13] MEDS: PIPERACILLIN-TAZOBACTAM 3.375 GM in SODIUM CHLORIDE 0.9% 100 ML IVPB SCH ×3 (04:18→19:25)
[2021-08-13] MEDS: ARTIFICIAL TEARS-HYPROMELLOSE DROPS 15 ML BTL BOTH EYES SCH ×6 (04:18→23:49)
[2021-08-13 04:26] LABS: ABG Base Excess 1.1 mmol/L; ABG HCO3 28 mmol/L (21-25); ABG Oxygen Saturation 75.8 % (94-97); ABG PCO2 62 mmHg (35-45); ABG PH 7.26 (7.35-7.45); ABG TCO2 30 mmol/L (19-24); Allen Test Performed? Yes
[2021-08-13 04:36] LABS: Basophils # (A) 0.2 k/uL (0-0.2); Basophils % (A) 1 %; Eosinophils # (A) 0.3 k/uL (0-0.7); Eosinophils % (A) 1 %; HCT 31.7 % (39.0-53.0); Hypochromasia Marked; Lymphocytes # (A) 3.2 k/uL (1.0-4.8); Lymphocytes % (A) 11 %; MCHC 29.9 g/dL (31.0-37.0); Mean Platelet Volume 8.8; Monocytes # (A) 1.3 k/uL (0-1.0); Monocytes % (A) 4 %; Neutrophils # (A) 24.6 k/uL (1.3-7.7); Neutrophils % (A) 82 %; Platelet Count 634 k/uL (150-450); RBC 3.52 m/uL (4.30-5.90); RDW 15.1 % (11.5-15.5)
[2021-08-13 04:41] LABS: HGB 9.5 gm/dL (13.0-17.5)
[2021-08-13] MEDS ORDERED: LABETALOL 5 MG/ML VIAL MDV IVP STA (04:45)
[2021-08-13 04:51] LABS: Albumin 3.1 g/dL (3.5-5.0); C Reactive Protein 4.1 mg/dL (<1.0); Calcium 9.5 mg/dL (8.4-10.2); Potassium 5.6 mmol/L (3.5-5.1); Total Bilirubin 0.9 mg/dL (0.2-1.3); Total Protein 6.4 g/dL (6.3-8.2)
--- NOTE | 2021-08-13 05:02 | XR ---
EXAMINATION TYPE: XR chest 1V portable DATE OF EXAM: 08/13/2021 CLINICAL HISTORY: Difficulty breathing progress study. COVID. TECHNIQUE: Single AP portable semiupright view of the chest is obtained. COMPARISON: Chest x-ray from one day earlier and older studies. FINDINGS: Stable endotracheal and orogastric tubes. Stable left-sided PICC line. Bilateral multifocal and confluent opacities greatest in the lower lungs redemonstrated. Cardiac silh ouette size is stable and within normal limits. Osseous structures are intact. IMPRESSION: Bilateral multifocal and confluent opacities greatest in the lower lungs consistent with covid-19 infection redemonstrated. No significant change from one day earlier.
[2021-08-13 05:10] LABS: ABG PO2 49 mmHg (83-108)
[2021-08-13] MEDS: INSULIN ASPART (NovoLOG) 100 UNIT/ML VIAL SQ SCH ×4 (05:29→23:48)
[2021-08-13] MEDS: HEPARIN SODIUM 1,000 UN/ML (10ML VL) IV PRN (05:50)
[2021-08-13] MEDS: HEPARIN SOD,PORK IN 0.45% NACL 25,000 UNIT in 0.45% NACL 1 250ML.BAG IV SCH ×2 (05:51→16:19)
[2021-08-13] MEDS ORDERED: FUROSEMIDE 10 MG/ML 10 ML VIAL IV STA (07:26)
[2021-08-13] MEDS: DEXAMETHASONE SOD PHOSPHATE 10 MG/ML 1 ML VIAL IV SCH ×2 (07:47→19:24)
[2021-08-13] MEDS: LEVOFLOXACIN 250MG-D5W PMX 250 MG in DEXTROSE/WATER 1 50ML.BAG IVPB SCH (07:47)
[2021-08-13] MEDS: CHLORHEXIDINE GLUCONATE 15 ML CUP MUCOUS MEM SCH ×2 (07:47→19:24)
[2021-08-13] MEDS: METOPROLOL TARTRATE 25 MG TAB PO SCH ×2 (07:48→21:45)
[2021-08-13] MEDS: PANTOPRAZOLE 40 MG/10 ML VIAL IVP SCH ×2 (07:48→19:24)
[2021-08-13] MEDS: ZINC SULFATE 220 MG CAP PO SCH (07:48)
[2021-08-13] MEDS: amLODIPine 5 MG TAB PO SCH (07:48)
[2021-08-13] MEDS: ASCORBIC ACID 500 MG TAB PO SCH (07:48)
[2021-08-13] MEDS: CHOLECALCIFEROL 25 MCG (1000 IU) TABLET PO SCH (07:48)
--- NOTE | 2021-08-13 08:50 | P.PN ---
Subjective Patient is seen in follow-up for acute kidney injury. Renal function better. Nonoliguric. On 75% FiO2. Receiving tube feeds and IV fluids. Potassium level 5.6 this morning. Received 60 mg IV Lasix this morning. Vital signs are stable. Intubated. Tachycardic. 1+ edema. Objective - Vital Signs Vital signs: Vital Signs Temp 98.6 F 08/13/21 04:00 Pulse 100 08/13/21 07:00 Resp 38 H 08/13/21 07:00 BP 96/54 08/13/21 04:00 Pulse Ox 100 08/13/21 07:00 Intake & Output 08/12/21 08/13/21 08/13/21 18:59 06:59 18:59 Intake Total 2166.275 2369.947 251.275 Output Total 1870 2135 Balance 296.275 234.947 251.275 Weight 129.4 kg 129.5 kg Intake: IV 864 636 Piperacillin-Tazobactam 3 100 .375 gm In Sodium Chloride 0.9% 100 ml @ 25 mls/hr IVPB Q8H [facility] Rx#: [id number] Sodium Chloride 0.9% 1, 725 600 000 ml @ 50 mls/hr IV . Q20H [facility] Rx#:[id number] pressure bag .9 39 36 Intake, IV Titration 3430.473 0055.947 251.275 Amount Cisatracurium 200 mg In 62.088 164.385 Sodium Chloride 0.9% 180 ml @ 1 MCG/KG/MIN 7.893 mls/hr IV .Q24H [facility] Rx#: [id number] Clevidipine Butyrate 25 63.534 mg In Empty Bag 1 bag @ 1 MG/HR 2 mls/hr IV .Q24H [facility] Rx#:[id number] Heparin Sod,Pork in 0.45% 232.817 438.823 NaCl 25,000 unit In 0.45 % NaCl 1 250ml.bag @ 17. 485 UNITS/KG/HR 23 mls/hr IV .[id number] [facility] Rx#: [id number] Levofloxacin 250Mg-D5w 50 Pmx 250 mg In Dextrose/ Water 1 50ml.bag @ 50 mls /hr IVPB Q24H [facility] Rx#: [id number] fentaNYL (PF). 2,500 mcg 423.120 318.987 151.275 In Sodium Chloride 0.9% 200 ml @ 0.5 MCG/KG/HR 6. 577 mls/hr IV .Q24H [facility] Rx#:[id number] propofoL 1,000 mg In 450.250 490.218 100 Empty Bag 1 bag @ Titrate IV .Q0M [facility] Rx#: [id number] Tube Feeding 84 168 Other 90 Output: Urine 1870 2135 Other: Voiding Method Indwelling Catheter Indwelling Catheter # Bowel Movements 1 ABP, PAP, CO, CI - Last Documented Arterial Blood Pressure 139/64 - Labs CBC & Chem 7: 08/13/21 04:05 08/13/21 04:05 Labs: Abnormal Lab Results - Last 24 Hours (Table) 08/12/21 08/12/21 08/12/21 Range/Units 12:01 14:51 18:08 WBC (3.8-10.6) k/uL RBC (4.30-5.90) m/uL Hgb (13.0-17.5) gm/dL Hct (39.0-53.0) % MCHC (31.0-37.0) g/dL Plt Count (150-450) k/uL Neutrophils # (1.3-7.7) k/uL Monocytes # (0-1.0) k/uL APTT (22.0-30.0) sec D-Dimer (<0.60) mg/L FEU ABG pH (7.35-7.45) ABG pCO2 (35-45) mmHg ABG pO2 (83-108) mmHg ABG HCO3 (21-25) mmol/L ABG Total CO2 (19-24) mmol/L ABG O2 Saturation (94-97) % Potassium 5.4 H (3.5-5.1) mmol/L Chloride (98-107) mmol/L BUN (9-20) mg/dL Creatinine (0.66-1.25) mg/dL Glucose (74-99) mg/dL POC Glucose (mg/dL) 110 H 106 H (75-99) mg/dL AST (17-59) U/L ALT (4-49) U/L Lactate Dehydrogenase (313-618) U/L C-Reactive Protein (<1.0) mg/dL Albumin (3.5-5.0) g/dL 08/12/21 08/13/21 08/13/21 Range/Units 23:54 04:05 04:05 WBC 30.0 H (3.8-10.6) k/uL RBC 3.52 L (4.30-5.90) m/uL Hgb 9.5 L D (13.0-17.5) gm/dL Hct 31.7 L (39.0-53.0) % MCHC 29.9 L (31.0-37.0) g/dL Plt Count 634 H (150-450) k/uL Neutrophils # 24.6 H (1.3-7.7) k/uL Monocytes # 1.3 H (0-1.0) k/uL APTT (22.0-30.0) sec D-Dimer 2.68 H (<0.60) mg/L FEU ABG pH (7.35-7.45) ABG pCO2 (35-45) mmHg ABG pO2 (83-108) mmHg ABG HCO3 (21-25) mmol/L ABG Total CO2 (19-24) mmol/L ABG O2 Saturation (94-97) % Potassium (3.5-5.1) mmol/L Chloride (98-107) mmol/L BUN (9-20) mg/dL Creatinine (0.66-1.25) mg/dL Glucose (74-99) mg/dL POC Glucose (mg/dL) 106 H (75-99) mg/dL AST (17-59) U/L ALT (4-49) U/L Lactate Dehydrogenase (313-618) U/L C-Reactive Protein (<1.0) mg/dL Albumin (3.5-5.0) g/dL 08/13/21 08/13/21 08/13/21 Range/Units 04:05 04:05 04:25 WBC (3.8-10.6) k/uL RBC (4.30-5.90) m/uL Hgb (13.0-17.5) gm/dL Hct (39.0-53.0) % MCHC (31.0-37.0) g/dL Plt Count (150-450) k/uL Neutrophils # (1.3-7.7) k/uL Monocytes # (0-1.0) k/uL APTT 36.5 H (22.0-30.0) sec D-Dimer (<0.60) mg/L FEU ABG pH 7.26 L (7.35-7.45) ABG pCO2 62 H (35-45) mmHg ABG pO2 49 L* (83-108) mmHg ABG HCO3 28 H (21-25) mmol/L ABG Total CO2 30 H (19-24) mmol/L ABG O2 Saturation 75.8 L (94-97) % Potassium 5.6 H (3.5-5.1) mmol/L Chloride 108 H (98-107) mmol/L BUN 51 H (9-20) mg/dL Creatinine 1.61 H (0.66-1.25) mg/dL Glucose 128 H (74-99) mg/dL POC Glucose (mg/dL) (75-99) mg/dL AST 75 H (17-59) U/L ALT 193 H (4-49) U/L Lactate Dehydrogenase 1730 H (313-618) U/L C-Reactive Protein 4.1 H (<1.0) mg/dL Albumin 3.1 L (3.5-5.0) g/dL Microbiology - Last 24 Hours (Table) 08/06/21 10:33 Blood Culture - Final Blood No Growth after 144 hours 08/06/21 10:41 Blood Culture - Final Blood No Growth after 144 hours Assessment and Plan Plan: Assessment: 1. Acute kidney injury secondary to ATN secondary to COVID-19 infection and contrast-induced acute kidney injury. Renal function better. Creatinine 1.61 today. Baseline creatinine near 1. 2. Hyperkalemia secondary to acute kidney injury. Stable. No evidence of acidosis. Blood sugars stable. ?heparin induced. 3. Acute hypoxic respiratory failure secondary to covert pneumonia and PE. On 50% FiO2. 4. Right lung PE maintained on IV heparin. 5. Benign hypertension. Stable. 6. Lower extremity edema. Plan: Hep-Lock IV fluids. Status post IV Lasix 60 mg this morning. Avoid nephrotoxins. Wean FiO2. Continue to monitor renal function and urine output. Repeat potassium level this evening.
--- NOTE | 2021-08-13 09:10 | P.PN ---
Subjective Progress Note Date: 08/13/21 Principal diagnosis: Coronavirus associated pneumonia. Acute hypoxic respiratory failure secondary to COVID-19 pneumonia On today's evaluation patient is seen in follow-up on 08/05/2021, he is currently on BiPAP support with pressure of 14/8, and the pulse ox is 87-93%, patient does alternate with Airvo at 60 L and 90% FiO2, and at bedtime and as needed for periods of time during the day he does go on BiPAP. He is awake and alert, he sitting up on the edge of the bed, dyspneic with exertion, but no acute distress, he remains on Bicitra neb, he is on IV Decadron, Lovenox 60 mg twice daily, he is on 0.9 normal saline at a rate of 50 ML per hour, he is on multivitamins, his latest chest x-ray from 08/04/2021 showed improved inspiration, improved right basilar focal consolidation, and persistent bilateral diffuse reticulonodular opacities in the lower lungs consistent with known COVID-19 infection. Today's labs have been reviewed, his white blood cell count is 19.1, hemoglobin is 13.1, d-dimer is 14.3, sodium is 133, the rest of electrolytes and renal profile were fairly unremarkable, his inflammatory markers are relatively stable and LDH is 2935, and CRP is 18.2, pro calcitonin level is slightly improved and is down to 0.40. His blood and sputum cultures have shown no growth. He did have a fever with a temp of 101.7F. Currently afebrile. No complaints of chest discomfort. No hemoptysis, his lower extremity Dopplers were negative for DVT. On 08/06/2021 patient seen in follow-up on medical surgical floor. Patient still requiring high flow oxygen per Airvo, and he is requiring BiPAP support most of time with pressures of 14/88 and FiO2 of 100% and his pulse ox is 87- 90%, he continues to have fevers, with a T-max 101.7F, overnight his fever pa ttern has improved and he still having some low-grade fevers. He is short of breath with any exertion. He continues on Decadron 6 mg daily, Baricitinib, and Lovenox at intermediate dosing at 0.5 mg/kg twice daily which is above 60 mg twice daily for this patient's weight. His d-dimer is down to 8.58 on today's labs, improved although still significantly elevated, lower extremity Dopplers were negative for any evidence of DVT. There is concern for superimposed bacterial infection, especially in view of fever, and elevated white blood cell count. Today's white count is 22.1, hemoglobin is 13, sodium is 131, rest of electrolytes were within normal limits, B1 is 27 creatinine 0.89, pro Level Was Borderline at 0.40, Also Suggestive of a Possible Super Imposed Bacterial Infection. Patient was transferred yesterday to the ICU, and around 2 AM this morning, I was notified about this patient is not doing well. Patient was noted to be desaturating, anxious, tachycardic, and patient did not improve much with Precedex. Hence I recommended intubating the patient. Patient was intubated by EMR SPECIALIST, trace on mechanical ventilation, and he is now on assist control rate of 38, tidal volume of 375 100% FiO2 and PEEP is 18. His ABG showed a pO2 of 99 pCO2 57 pH of 7.27. Patient is on multiple drips including propofol at 50 fentanyl at 0.25 mcg/kg/h, Nimbex at 1 and he is on IV fluid 0.9 normal saline at 50 mL per hour. Patient was actually intubated around 2:45 AM this morning. Reviewed his chest x-ray, clearly showed bilateral infiltrates, consistent with COVID-19 pneumonia. His endotracheal tube is in the proper position. And his orogastric tube is also in the proper position. After reviewing his ABG, I cut down his FiO2 to 90%, may consider going higher on the PEEP, may also consider placing the patient in prone position. I have consulted interventional radiology for a PICC line placement, and I went ahead and placed a right radial arterial line. Patient will be off heparin for a couple of hours prior to the PICC line placement. I reviewed his CT angiogram of the chest from yesterday, the minor evidence of pulmonary embolism is not clinically impressive, however nonetheless the patient will need to be heparinized noticing that he has elevated d-dimer and the fact that he has COVID-19 pneumonia which is a major provoking factor for thrombus embolic disease. WBC count today is 19 hemoglobin is 11.9 his PTT was therapeutic initially at 50.1, and this morning it is 37.9, patient received a heparin bolus. Electrolytes are normal potassium is 5.1 BUN is 28 creatinine is 1.03. Medications espinoza, patient is on albuterol, amlodipine, vitamin C, Peridex, vitamin D, Nimbex, Decadron 6 mg IV push daily, fentanyl, heparin, hydralazine, metoprolol, lisinopril, Protonix, Zosyn, and zinc. Used to be on baricitimib, however because of his leukocytosis and elevat ed pro calcitonin, this was discontinued, and we started the patient empirically on antibiotics. Blood cultures and sputum cultures so far are negative. And they seem to be nondiagnostic so far. At one point, the patient was spiking fevers, his T-max yesterday was 99.1. The patient is seen today 08/08/2021 and follow-up in the intensive care unit. He remains intubated, sedated, paralyzed and on the mechanical ventilator. Current settings are assist control at a rate of 38, tidal volume 375, FiO2 100% and a PEEP of 18. Peak pressures of 35, plateau of 33. Morning blood gases revealed a PaO2 of 205, pCO2 56, pH 7.22. He remains in sinus tachycardia currently at 104. He is currently on propofol 50 mcg/kg/m, fentanyl at 0.25 mcg/kg per hour, Nimbex at 1 mcg/kg/m, heparin drip per weight-based protocol. 0.9 normal saline at 125 ML's per hour. Staff did attempt to prone the patient yesterday however he had a significant cuff leak, significant desaturations and had to be placed back in supine position almost immediately. Chest x-ray reveals continued diffuse fine interstitial infiltrates, left greater than right with possibly some slight improvement in aeration. Blood cultures reveal no growth. Sputum cultures reveal no growth. White count 15.1. Hemoglobin 9.8. Platelets 230. Lymphocytes 0.8. Sodium 133. Potassium 5.6. Bicarb 21. Creatinine 2.88. Blood glucose 118. AST 39. ALT 61. He is continued on Decadron, Zosyn, vitamin supplements. He is currently afebrile. Not requiring pressors. He is being nourished with vital AF at 20 ML's per hour. Reevaluated today on 08/09/2021, patient remains in the ICU, intubated and mechanically ventilated, sedated and paralyzed. Ventilator settings are assist control rate of 38 tidal volume 375 FiO2 65% PEEP increased to 20 this morning. ABG earlier on a PEEP of 18 showed a pO2 of 66 pCO2 of 56 pH of 7.35. Patient is on Nimbex at 2 mcg/kg/m fentanyl 0.5 mcg/kg/h propofol at 55 mcg/kg/m still on a bicarb drip at 75 mL per hour. Patient is on enteral feeding using vital AF 28/28. Patient remains on Decadron at 6 mg IV push twice a day. Remains on heparin. Remains on the COVID-19 cocktail. Remains on albuterol, remains on GI prophylaxis. Insulin as per protocol, metoprolol Pavithra and empirically on Zosyn for his elevated pro calcitonin level. Chest x-ray continues to show bilateral interstitial infiltrates consistent with COVID-19 pneumonia not much of a change noted on the chest x-ray today. Labs, showed relatively normal CBC. PTT is 41.6, patient is on heparin, electrolytes are normal renal profile showed slight improvement to BUN is 53 creatinine 2.22. Repeat pro calcitonin yesterday was 5.5, last LDH was 2931, and C-reactive protein is elevated at 31.6 Reevaluated today on 08/10/2021, remains in the ICU intubated and mechanically ventilated, sedated and paralyzed. Thank you the settings are assist control rate 38 tidal volumes at 375 FiO2 50% PEEP of 20, peak airway pressure 39 left total pressure is 37 ABG showed a pO2 of 65 pCO2 52 pH of 7.35. Remains on multiple drips including Nimbex at 2 mcg/kg/m, propofol at 70 micrograms per kilo per minute fentanyl at 1.5 mcg/kg/m and cutting down to 1 mcg/kg/m. Remains on enteral feeding with vital AF 28/28. Remains on Decadron 6 mg twice a day remains on Zosyn and his last procalcitonin was 5.5 Chest x-ray continues to show evidence of bilateral infiltrates left seems to be more involved than the right. Labs today showed d-dimer of 1.78 down from 8.58, patient remains on heparin. CT of the chest showed nonocclusive thromboembolic disease. LDH is down to 1114 from 2931 and C-reactive protein is elevated at 19.9 but much better compared to a few days ago where it was about 32. WBC count is 11.8 hemoglobin is 8.4. Platelets are 317,000 Patient was reevaluated today on 08/11/21, patient remains in the ICU, intubated and mechanically ventilated. Patient is sedated and paralyzed, he is on Nimbex at 1.5 mcg/kg/m, fentanyl at 1 mcg/kg/h, propofol is 65 mcg/kg/h, he is also on heparin drip and he is on IV fluid at 65 mL per hour in the form of 0.9 normal saline. Patient is receiving enteral feeding vital AF Ventilator settings include assist control rate of 38 tidal volume 375 FiO2 60% PEEP of 20, ABG showed a pO2 of 58 pCO2 of 55 pH of 7.31, and this was on 55%, hence the FiO2 was increased to 60%. Patient desaturates even with a PEEP down to 18, hence I'm keeping him on a PEEP of 24 now. Chest x-ray shows bilateral infiltrates, however the left lower lobe seems to be more involved than the rest of the lungs, more infiltrate noted in the left lower lobe area. Patient remains on Zosyn, he is off baricitinib, mostly because of his elevated pro calcitonin level, and he was placed on antibiotics empirically. And will add Levaquin empirically in addition to Zosyn. Cultures so far are nondiagnostic. Patient remains on Decadron 6 mg twice a day. And he is also on the COVID-19 cocktail. Patient remains on the COVID-19 cocktail, and he remains on GI and DVT prophylaxis Progress note dated 08/12/2021. 31-year-old black male, again seen in the intensive care unit, room 262. The patient was admitted on July 31 with coronavirus associated pneumonia. He was moved to the intensive care unit on August 06 and intubated on the same day for worsening respiratory failure with hypoxemia. Currently, the patient remains on the mechanical ventilator. He is on the volume assist control mode, rate 38, tidal volume 375, FiO2 60%, to be decreased to 50%, and PEEP of 20. Arterial blood gases show pO2 of 70, pCO2 of 49, and a pH is 7.36. The patient is receiving saline at 50 mL an hour, propofol 60 mcg/kg/m, Nimbex at 2 mcg/kg/m with train of four monitoring, heparin via weightbase protocol, fentanyl at 2 mcg/kg/h, and vital AF at goal, which is 28 mL an hour. White count 15, hemoglobin 7.8, hematocrit 26.1, and platelet count 433,000. D-dimer was 1.68. Sodium 140, potassium 5.3, chlorides 111, CO2 25, anion gap 4, BUN 60, and creatinine 1.73. LDH is 1160. C-reactive protein is 5.8. Chest x-ray shows diffuse bilateral infiltrates. This is consistent with his known diagnosis of coronavirus associated pneumonia. Endotracheal tube is about 3-1/2 cm above the tracheal delmer. Progress note dated 08/13/2021. 31-year-old black male, again seen in the intensive care unit, room 262. The patient was admitted to the hospital on July 31 with coronavirus associated pneumonia. He was moved to the intensive care unit on August 06, and intubated on the same day for worsening hypoxemic respiratory failure. The patient remains on mechanical ventilator. His ventilator settings include the volume assist control, rate 38, tidal volume 375, FiO2 currently 75%, with a PEEP of 20. He had blood gases done early in the morning showing a pO2 of 49, pCO2 of 62, and a pH is 7.26. That was when he was on 50% and when he was getting a bath. Subsequently, we increase his FiO2 to 100%, and he is now been weaned down to 75%. I did asked the respiratory therapist to repeat an ABG. The patient's currently receiving propofol at 75 mcg/kg/m, Nimbex at 2 mcg/kg/m, fentanyl at 3 mcg/kg/h, and heparin via weightbase protocol. He is getting saline at KVO, and tube feedings with Nepro at 14 mL an hour, which is goal. He remains on Zosyn and Levaquin. He is apparently scheduled for tracheostomy and PEG tube placement on Thursday. White count is 30, hemoglobin 9.5, hematocrit 31.7, platelet count 634,000. D-dimer is 2.68. Sodium 140, potassium 5.6, chlorides 108, CO2 27, anion gap 5, BUN 51, and creatinine 1.61. LDH is 1730. C-reactive protein is 4.1. Albumin is 3.1. Chest x-ray shows diffuse bilateral infiltrates, essentially unchanged. Objective - Vital Signs Vital signs: Vital Signs Temp 98.6 F 08/13/21 04:00 Pulse 100 08/13/21 07:00 Resp 38 H 08/13/21 07:00 BP 96/54 08/13/21 04:00 Pulse Ox 100 08/13/21 07:00 Intake & Output 08/12/21 08/13/21 08/13/21 18:59 06:59 18:59 Intake Total 2166.275 2369.947 251.275 Output Total 1870 2135 Balance 296.275 234.947 251.275 Weight 129.4 kg 129.5 kg Intake: IV 864 636 Piperacillin-Tazobactam 3 100 .375 gm In Sodium Chloride 0.9% 100 ml @ 25 mls/hr IVPB Q8H [facility] Rx#: [id number] Sodium Chloride 0.9% 1, 725 600 000 ml @ 50 mls/hr IV . Q20H [facility] Rx#:[id number] pressure bag .9 39 36 Intake, IV Titration 6712.180 8341.947 251.275 Amount Cisatracurium 200 mg In 62.088 164.385 Sodium Chloride 0.9% 180 ml @ 1 MCG/KG/MIN 7.893 mls/hr IV .Q24H [facility] Rx#: [id number] Clevidipine Butyrate 25 63.534 mg In Empty Bag 1 bag @ 1 MG/HR 2 mls/hr IV .Q24H [facility] Rx#:[id number] Heparin Sod,Pork in 0.45% 232.817 438.823 NaCl 25,000 unit In 0.45 % NaCl 1 250ml.bag @ 17. 485 UNITS/KG/HR 23 mls/hr IV .[id number] [facility] Rx#: [id number] Levofloxacin 250Mg-D5w 50 Pmx 250 mg In Dextrose/ Water 1 50ml.bag @ 50 mls /hr IVPB Q24H [facility] Rx#: [id number] fentaNYL (PF). 2,500 mcg 423.120 318.987 151.275 In Sodium Chloride 0.9% 200 ml @ 0.5 MCG/KG/HR 6. 577 mls/hr IV .Q24H [facility] Rx#:[id number] propofoL 1,000 mg In 450.250 490.218 100 Empty Bag 1 bag @ Titrate IV .Q0M [facility] Rx#: [id number] Tube Feeding 84 168 Other 90 Output: Urine 1870 2135 Other: Voiding Method Indwelling Catheter Indwelling Catheter # Bowel Movements 1 ABP, PAP, CO, CI - Last Documented Arterial Blood Pressure 139/64 - Exam No acute distress, sedated and paralyzed, with an orally placed endotracheal tube. HEENT examination is grossly unremarkable. Neck supple. Full range of motion. No adenopathy thyromegaly or neck vein distention. Cardiovascular examination reveals regular rhythm rate. S1-S2 normal. No S3 or S4. No discernible murmur noted. Heart sounds are distant. Heart rate 100 bpm. Lungs reveal coarse bilateral rhonchi. Breath sounds equal bilaterally. No whe ezes or crackles. Saturations are 100% currently on FiO2 of 75%. Abdomen soft bowel sounds are heard. No masses or tenderness. Extremities are intact. No cyanosis clubbing or edema. Skin is without rash or lesion. Neurologic examination cannot be adequately assessed at this time given the lev el of sedation and paralysis. - Labs CBC & Chem 7: 08/13/21 04:05 08/13/21 04:05 Labs: Abnormal Lab Results - Last 24 Hours (Table) 08/12/21 08/12/21 08/12/21 Range/Units 12:01 14:51 18:08 WBC (3.8-10.6) k/uL RBC (4.30-5.90) m/uL Hgb (13.0-17.5) gm/dL Hct (39.0-53.0) % MCHC (31.0-37.0) g/dL Plt Count (150-450) k/uL Neutrophils # (1.3-7.7) k/uL Monocytes # (0-1.0) k/uL APTT (22.0-30.0) sec D-Dimer (<0.60) mg/L FEU ABG pH (7.35-7.45) ABG pCO2 (35-45) mmHg ABG pO2 (83-108) mmHg ABG HCO3 (21-25) mmol/L ABG Total CO2 (19-24) mmol/L ABG O2 Saturation (94-97) % Potassium 5.4 H (3.5-5.1) mmol/L Chloride (98-107) mmol/L BUN (9-20) mg/dL Creatinine (0.66-1.25) mg/dL Glucose (74-99) mg/dL POC Glucose (mg/dL) 110 H 106 H (75-99) mg/dL AST (17-59) U/L ALT (4-49) U/L Lactate Dehydrogenase (313-618) U/L C-Reactive Protein (<1.0) mg/dL Albumin (3.5-5.0) g/dL 08/12/21 08/13/21 08/13/21 Range/Units 23:54 04:05 04:05 WBC 30.0 H (3.8-10.6) k/uL RBC 3.52 L (4.30-5.90) m/uL Hgb 9.5 L D (13.0-17.5) gm/dL Hct 31.7 L (39.0-53.0) % MCHC 29.9 L (31.0-37.0) g/dL Plt Count 634 H (150-450) k/uL Neutrophils # 24.6 H (1.3-7.7) k/uL Monocytes # 1.3 H (0-1.0) k/uL APTT (22.0-30.0) sec D-Dimer 2.68 H (<0.60) mg/L FEU ABG pH (7.35-7.45) ABG pCO2 (35-45) mmHg ABG pO2 (83-108) mmHg ABG HCO3 (21-25) mmol/L ABG Total CO2 (19-24) mmol/L ABG O2 Saturation (94-97) % Potassium (3.5-5.1) mmol/L Chloride (98-107) mmol/L BUN (9-20) mg/dL Creatinine (0.66-1.25) mg/dL Glucose (74-99) mg/dL POC Glucose (mg/dL) 106 H (75-99) mg/dL AST (17-59) U/L ALT (4-49) U/L Lactate Dehydrogenase (313-618) U/L C-Reactive Protein (<1.0) mg/dL Albumin (3.5-5.0) g/dL 1008/13/21 08/13/21 Range/Units 04:05 04:05 04:25 WBC (3.8-10.6) k/uL RBC (4.30-5.90) m/uL Hgb (13.0-17.5) gm/dL Hct (39.0-53.0) % MCHC (31.0-37.0) g/dL Plt Count (150-450) k/uL Neutrophils # (1.3-7.7) k/uL Monocytes # (0-1.0) k/uL APTT 36.5 H (22.0-30.0) sec D-Dimer (<0.60) mg/L FEU ABG pH 7.26 L (7.35-7.45) ABG pCO2 62 H (35-45) mmHg ABG pO2 49 L* (83-108) mmHg ABG HCO3 28 H (21-25) mmol/L ABG Total CO2 30 H (19-24) mmol/L ABG O2 Saturation 75.8 L (94-97) % Potassium 5.6 H (3.5-5.1) mmol/L Chloride 108 H (98-107) mmol/L BUN 51 H (9-20) mg/dL Creatinine 1.61 H (0.66-1.25) mg/dL Glucose 128 H (74-99) mg/dL POC Glucose (mg/dL) (75-99) mg/dL AST 75 H (17-59) U/L ALT 193 H (4-49) U/L Lactate Dehydrogenase 1730 H (313-618) U/L C-Reactive Protein 4.1 H (<1.0) mg/dL Albumin 3.1 L (3.5-5.0) g/dL Microbiology - Last 24 Hours (Table) 08/06/21 10:33 Blood Culture - Final Blood No Growth after 144 hours 08/06/21 10:41 Blood Culture - Final Blood No Growth after 144 hours Assessment and Plan Assessment: Acute hypoxemic respiratory failure secondary to coronavirus associated pn eumonia, status post intubation and mechanical ventilation on August 06. Anticipated tracheostomy and PEG tube placement on August 14. Acute respiratory distress syndrome. Elevated inflammatory marker secondary to coronavirus infection. Acute/subacute pulmonary embolism. Elevated liver enzymes secondary to coronavirus infection. Morbid obesity. Plan: Plan dated 08/12/2021. We'll attempt to get the patient off of the paralytic if possible. I gave instructions to the nurse. In addition, we will continue with the propofol and the fentanyl for now. We'll reduce the FiO2 down from 60%, down to 50%. I told the nurses and respiratory therapist except saturations in the mid 80s or higher. The patient will continue on heparin for now. Additional recommendations and suggestions are forthcoming. Prognosis is guarded. We will continue to follow this patient, and make recommendations where appropriate. Plan dated 08/13/2021. We're unable to get the patient off the paralytic. During his bath, his saturations dropped and his blood pressure went up. The nurses contacted me. I ordered the FiO2 to be increased to 100%, and also use labetalol IV for blood pressure control. At that point, he was on maximal dose Cleveprex. He is scheduled for a tracheostomy and PEG tube tomorrow. I think that's espinoza. We will repeat a blood gas and a few minutes. His FiO2 is been weaned down to 75%. Additional recommendations and suggestions are forthcoming. His medications are reviewed. He remains on Zosyn and Levaquin. Microbiology is as far all negative. Time with Patient: Greater than 30
[2021-08-13 10:31] LABS: ABG Base Excess 2.2 mmol/L; ABG HCO3 28 mmol/L (21-25); ABG Oxygen Saturation 93.6 % (94-97); ABG PCO2 55 mmHg (35-45); ABG PH 7.32 (7.35-7.45); ABG PO2 74 mmHg (83-108); ABG TCO2 30 mmol/L (19-24)
[2021-08-13 10:33] LABS: Allen Test Performed? no
[2021-08-13] MEDS: ALBUTEROL HFA INHALER INHALATION PRN ×2 (11:12→15:32)
[2021-08-13 11:45] LABS: Glucose,Whole Blood 121 mg/dL (75-99)
--- NOTE | 2021-08-13 14:53 | P.PN ---
Subjective Progress Note Date: 08/13/21 CHIEF COMPLAINT: COVID-19 pneumonia HISTORY OF PRESENT ILLNESS: Patient remains in the ICU intubated and sedated. He is currently a PEEP of 22. He is on IV heparin for a PE. Potassium elevated at 5.6 patient did receive a dose of IV Lasix. He is afebrile. White count is up to 30. PHYSICAL EXAM: VITAL SIGNS: Reviewed. GENERAL: Well-developed in no acute distress. HEENT: No sclera icterus. Extraocular movements grossly intact. Moist buccal mucosa. Head is atraumatic, normocephalic. ABDOMEN: Soft. Nondistended. Nontender. NEUROLOGIC: Intubated and sedated ASSESSMENT: 1. Acute hypoxic respiratory failure due to COVID-19 pneumonia status post prolonged mechanical intubation 2. Severe protein calorie malnutrition PLAN: -Patient is scheduled for tracheostomy and PEG tube placement tomorrow, 08/14/[address] coelho -Hold IV heparin starting at 9 AM tomorrow morning -Hold tube feedings after midnight Physician [employer] Super[employer] note has been reviewed by physician. Signing provider agrees with the documented findings, assessment, and plan of care. Objective - Vital Signs Vital signs: Vital Signs Temp 98.4 F 08/13/21 12:00 Pulse 80 08/13/21 12:00 Resp 38 H 08/13/21 12:00 BP 96/54 08/13/21 04:00 Pulse Ox 92 L 08/13/21 12:00 Intake & Output 08/12/21 08/13/21 08/13/21 18:59 06:59 18:59 Intake Total 2166.275 2369.947 985.341 Output Total 1870 2135 3500 Balance 296.275 234.947 -2514.659 Weight 129.4 kg 129.5 kg Intake: IV 864 636 215 Piperacillin-Tazobactam 3 100 100 .375 gm In Sodium Chloride 0.9% 100 ml @ 25 mls/hr IVPB Q8H [facility] Rx#: [id number] Sodium Chloride 0.9% 1, 725 600 100 000 ml @ 20 mls/hr IV . Q24H [facility] Rx#:[id number] pressure bag .9 39 36 15 Intake, IV Titration 2064.580 9529.947 756.341 Amount Cisatracurium 200 mg In 62.088 164.385 182.317 Sodium Chloride 0.9% 180 ml @ 1 MCG/KG/MIN 7.893 mls/hr IV .Q24H [facility] Rx#: [id number] Clevidipine Butyrate 25 63.534 mg In Empty Bag 1 bag @ 1 MG/HR 2 mls/hr IV .Q24H [facility] Rx#:[id number] Heparin Sod,Pork in 0.45% 232.817 438.823 NaCl 25,000 unit In 0.45 % NaCl 1 250ml.bag @ 17. 485 UNITS/KG/HR 23 mls/hr IV .[id number] [facility] Rx#: [id number] Levofloxacin 250Mg-D5w 50 50 Pmx 250 mg In Dextrose/ Water 1 50ml.bag @ 50 mls /hr IVPB Q24H [facility] Rx#: [id number] fentaNYL (PF). 2,500 mcg 423.120 318.987 151.275 In Sodium Chloride 0.9% 200 ml @ 0.5 MCG/KG/HR 6. 577 mls/hr IV .Q24H [facility] Rx#:[id number] propofoL 1,000 mg In 450.250 490.218 372.749 Empty Bag 1 bag @ Titrate IV .Q0M [facility] Rx#: [id number] Tube Feeding 84 168 14 Other 90 Output: Urine 1870 2135 3500 Other: Voiding Method Indwelling Catheter Indwelling Catheter Indwelling Catheter # Bowel Movements 1 ABP, PAP, CO, CI - Last Documented Arterial Blood Pressure 131/60 - Labs CBC & Chem 7: 08/13/21 04:05 08/13/21 04:05 Labs: Abnormal Lab Results - Last 24 Hours (Table) 08/12/21 08/12/21 08/12/21 Range/Units 04:05 14:51 18:08 WBC (3.8-10.6) k/uL RBC (4.30-5.90) m/uL Hgb (13.0-17.5) gm/dL Hct (39.0-53.0) % MCHC (31.0-37.0) g/dL Plt Count (150-450) k/uL Neutrophils # (1.3-7.7) k/uL Monocytes # (0-1.0) k/uL APTT (22.0-30.0) sec D-Dimer (<0.60) mg/L FEU ABG pH (7.35-7.45) ABG pCO2 (35-45) mmHg ABG pO2 (83-108) mmHg ABG HCO3 (21-25) mmol/L ABG Total CO2 (19-24) mmol/L ABG O2 Saturation (94-97) % Potassium 5.4 H (3.5-5.1) mmol/L Chloride (98-107) mmol/L BUN (9-20) mg/dL Creatinine (0.66-1.25) mg/dL Glucose (74-99) mg/dL POC Glucose (mg/dL) 106 H (75-99) mg/dL AST (17-59) U/L ALT (4-49) U/L Lactate Dehydrogenase (313-618) U/L C-Reactive Protein (<1.0) mg/dL Albumin (3.5-5.0) g/dL Procalcitonin 0.69 H (0.02-0.09) ng/mL 08/12/21 08/13/21 08/13/21 Range/Units 23:54 04:05 04:05 WBC 30.0 H (3.8-10.6) k/uL RBC 3.52 L (4.30-5.90) m/uL Hgb 9.5 L D (13.0-17.5) gm/dL Hct 31.7 L (39.0-53.0) % MCHC 29.9 L (31.0-37.0) g/dL Plt Count 634 H (150-450) k/uL Neutrophils # 24.6 H (1.3-7.7) k/uL Monocytes # 1.3 H (0-1.0) k/uL APTT (22.0-30.0) sec D-Dimer 2.68 H (<0.60) mg/L FEU ABG pH (7.35-7.45) ABG pCO2 (35-45) mmHg ABG pO2 (83-108) mmHg ABG HCO3 (21-25) mmol/L ABG Total CO2 (19-24) mmol/L ABG O2 Saturation (94-97) % Potassium (3.5-5.1) mmol/L Chloride (98-107) mmol/L BUN (9-20) mg/dL Creatinine (0.66-1.25) mg/dL Glucose (74-99) mg/dL POC Glucose (mg/dL) 106 H (75-99) mg/dL AST (17-59) U/L ALT (4-49) U/L Lactate Dehydrogenase (313-618) U/L C-Reactive Protein (<1.0) mg/dL Albumin (3.5-5.0) g/dL Procalcitonin (0.02-0.09) ng/mL 08/13/21 08/13/21 08/13/21 Range/Units 04:05 04:05 04:25 WBC (3.8-10.6) k/uL RBC (4.30-5.90) m/uL Hgb (13.0-17.5) gm/dL Hct (39.0-53.0) % MCHC (31.0-37.0) g/dL Plt Count (150-450) k/uL Neutrophils # (1.3-7.7) k/uL Monocytes # (0-1.0) k/uL APTT 36.5 H (22.0-30.0) sec D-Dimer (<0.60) mg/L FEU ABG pH 7.26 L (7.35-7.45) ABG pCO2 62 H (35-45) mmHg ABG pO2 49 L* (83-108) mmHg ABG HCO3 28 H (21-25) mmol/L ABG Total CO2 30 H (19-24) mmol/L ABG O2 Saturation 75.8 L (94-97) % Potassium 5.6 H (3.5-5.1) mmol/L Chloride 108 H (98-107) mmol/L BUN 51 H (9-20) mg/dL Creatinine 1.61 H (0.66-1.25) mg/dL Glucose 128 H (74-99) mg/dL POC Glucose (mg/dL) (75-99) mg/dL AST 75 H (17-59) U/L ALT 193 H (4-49) U/L Lactate Dehydrogenase 1730 H (313-618) U/L C-Reactive Protein 4.1 H (<1.0) mg/dL Albumin 3.1 L (3.5-5.0) g/dL Procalcitonin (0.02-0.09) ng/mL 08/13/21 08/13/21 08/13/21 Range/Units 10:26 11:40 11:43 WBC (3.8-10.6) k/uL RBC (4.30-5.90) m/uL Hgb (13.0-17.5) gm/dL Hct (39.0-53.0) % MCHC (31.0-37.0) g/dL Plt Count (150-450) k/uL Neutrophils # (1.3-7.7) k/uL Monocytes # (0-1.0) k/uL APTT 65.7 H (22.0-30.0) sec D-Dimer (<0.60) mg/L FEU ABG pH 7.32 L (7.35-7.45) ABG pCO2 55 H (35-45) mmHg ABG pO2 74 L (83-108) mmHg ABG HCO3 28 H (21-25) mmol/L ABG Total CO2 30 H (19-24) mmol/L ABG O2 Saturation 93.6 L (94-97) % Potassium (3.5-5.1) mmol/L Chloride (98-107) mmol/L BUN (9-20) mg/dL Creatinine (0.66-1.25) mg/dL Glucose (74-99) mg/dL POC Glucose (mg/dL) 121 H (75-99) mg/dL AST (17-59) U/L ALT (4-49) U/L Lactate Dehydrogenase (313-618) U/L C-Reactive Protein (<1.0) mg/dL Albumin (3.5-5.0) g/dL Procalcitonin (0.02-0.09) ng/mL Microbiology - Last 24 Hours (Table) 08/06/21 10:33 Blood Culture - Final Blood No Growth after 144 hours 08/06/21 10:41 Blood Culture - Final Blood No Growth after 144 hours
[2021-08-13] MEDS ORDERED: FUROSEMIDE 10 MG/ML 10 ML VIAL IV ONE (16:00)
[2021-08-13 17:45] LABS: Glucose,Whole Blood 109 mg/dL (75-99)
[2021-08-13] MEDS: SODIUM CHLORIDE 0.9% 1,000 ML IV SCH (18:48)
--- NOTE | 2021-08-13 22:27 | P.PN ---
Subjective Progress Note Date: 08/13/21 Principal diagnosis: Acute hypoxemic respiratory failure secondary to Covid pneumonia This is a pleasant 31 years old -[place] man with no significant past medical history presents with dyspnea which started yesterday associated with fever and coughing. Patient tested positive for covid earlier on Thursday after he felt with fever and cough on Thursday but at that time he was not dyspneic. He denies chest pain or abdominal pain but he has diarrhea on and off. No vomi ting. He is saturating 89% on 6 L oxygen via nasal cannula, afebrile. Tachypneic with a breathing rate at 23. CBC, is unremarkable. INR is normal at 1.0. Sodium is 1:30, creatinine normal at 1.1, glucose 103. AST is mildly elevated 106 and ALT mildly elevated 106. Elevated lactate dehydrogenase 2600 and C-reactive protein 20.3. Cholelithiasis positive EKG shows sinus tachycardia and [address]-T changes Chest x-ray showing bilateral infiltrates 08/01/2021 Patient sitting at bedside using 50 L of oxygen via nonrebreather. Reports slight improvement in his breathing and his chest x-ray showing somewhat improvement in that area should on both sides. He has low-grade fever today at 200. Blood pressure is stable. D-dimer is 1.87. BMP is unremarkable, liver enzymes slightly trending down. LDH slightly down at 2437 and slightly decreased and C-reactive protein 16.7. C BC and pro-calcitonin are pending Sputum and blood culture are still pending He remains on multiple vitamins, Baricitinib, dexamethasone and normal saline at 75 mL/h. Also he is on Lovenox. Norvasc is added for blood pressure control also we will add metoprolol Subjective: 08/05/21 patient still with dyspnea requiring BiPAP most of the time. He is developing fever of 101.7 today. Blood pressure 157/91. He has leukocytosis 19.1.liver enzymes Are the same. LDH elevated 2935 and C- reactive protein 18.2 his still on multiple vitamins, Baricitinib, dexamethasone and normal saline at 50 mL/h. Also he is on Lovenox therapeutic dose after his d-dimer yesterday. 08/06/2021 Patient remains on BiPAP needing higher pressures 14/8 and FiO2 of 100%. Also history of chronic fever around 100 and pro-calcitonin elevated at 0.40. This left leukocytosis around 22, LDH and C-reactive protein still elevated. D- dimer is trending down to 8.5 and CTA of the chest today showing negative for PE but bilateral groundglass opacity. Sputum culture 2 is negative. Urine analysis is negative for infection Today patient SWITCHED to heparin drip. Also he was started on Zosyn. Also dexamethasone 6 mg daily and normal saline at 50 mL per hour. Discontinue Baricitinib per pulmonary 08/07/2021 Patient respiratory status got worse and eventually patient got intubated while he is in the ICU. Pulmonary/critical care team following the patient closely and help with vent management. He has a fever of 100. Breathing rate around 29. Blood pressure is stable. WBC down to 19 K, Patient is acidotic with pH of 7.2, pCO2 of 57 which is low and high pO2 of 99. Chest x-ray showed increasing bilateral infiltrate and left lower lobe pneumonia. Repeat sputum culture is pending. First 2 samples were negative He remains on Zosyn, dexamethasone, normal saline at 50 mL per hour , heparin drip, multiple vitamins 08/08/2021 Patient remains in the ICU in critical condition and generally he is not doing well. I'll intubated and on mechanical ventilation with the pulmonary/critical care team R following closely He is hemodynamically stable, mildly tachycardic. WBC improving down to 15 but also hemoglobin dropped to 11.9 down to 9.8. And while he continued on heparin drip for suspected thrombosis secondary to his Covid infection and high d-dimer will increase his for chronic 40 mg daily and to twice a day. Patient FiO2 was lowered to 70%, he did not tolerate the prone position. He has no fever but tachypneic at 38 Today his creatinine went up 1.0 up to 2.8 with mild hyperkalemia however he is making good urine output with yellow urine in his Lees catheter bag nephrology team were consulted and bicarb drip was started for acidosis with pH of 7.22. He remains on Zosyn, dexamethasone, vitamin C, D and zinc. 08/09/2021 Remains in the ICU in critical condition. He continue on mechanical ventilation with pulmonary/critical care team on the consult. He still significantly tachypneic at 38 and leukocytosis. Possibly just at that time level 18 to 20, prone position was tried but patient could not tolerate it so avoided now. Labs showing improvement leukocytosis 12 K, hemoglobin 9.2, FiO2 lower to 55%. Creatinine improved slightly to 2.2 after starting normal saline at 75 mL/h. Chest x-ray showing the same findings of bilateral pneumonia. Dexamethasone was increased to twice daily today, normal saline 75 mL/h started. Well continued on heparin drip, Zosyn and multiple vitamins 08/10/2021 Patient condition did not change much from yesterday. He remains intubation only FiO2 lower to 55 from 70% and PEEP down to 18. With pulmonary/critical care team following the case closely. This remains tachycardia. No need for pressors. He hasn't been fever for the last 48 hours. D-dimer trending down to 1.7. WBC down to 11.8. Hemoglobin down to 8.9. Inflammatory markers improved to 114 and 19.9.. Creatinine is stable from yesterday at 2.2. Chest x-ray showing similar infiltrate both sides more on the left side. He remains on Zosyn, multiple vitamins, dexamethasone, normal saline, heparin drip. 08/11/2021 Patient remains in the ICU in critical condition. He is currently on mechanical ventilation significantly tachypneic around 38. With the floor at about 60 L/m. He is FiO2 of 60% and PEEP of 20. With pulmonary/critical care team opened and vent management. Labs showing WBC 12.6, hemoglobin slightly trending to 7.8. Lactate dehydrogenase 1245 and C-reactive protein down to 13.6. Creatinine is 2.0 Is on Zosyn, dexamethasone, normal sinus 75, heparin drip. 08/12/2021 Patient is currently in the intensive care unit. Remains on mechanical ventilator due to acute hypoxemic respiratory failure with Covid pneumonia Currently on before meals 375, FiO2 60% and PEEP of 20. Patient is on Nimbex drip and heparin subcu. Patient is also on fentanyl. Laboratory data showed WBC 15 hemoglobin 7.8 hematocrit 26.1 and platelets 433 And d-dimer is 1.68 sodium 140 potassium 5.3 chloride 101 bicarb is 25 BUN 16 creatinine 1.73. The LDH 1160. Chest x-ray showed findings similar to prior exam. Correlate for pneumonia, edema, ARDS. 08/13/2021 Patient is currently in the intensive care unit. Remains on mechanical ventilator. Assist control 375 and FiO2 at 50% and PEEP of 20. Currently being continued on Nimbex and fentanyl drip. Patient is being converted on IV heparin due to pulmonary embolism. Patient is being controlled on antibiotic Levaquin and Zosyn. Patient is scheduled for vacation and PEG tube placement tomorrow. Laboratory data showed WBC 30.0, hemoglobin 9.5 platelets 634 D-dimer 2.68, sodium 140 potassium 5.6 chloride 108 BUN 51 and creatinine 1.61, AST 75 ALT 193 Patient is being continued on dexamethasone 6 mg IV twice a day. Pulmonary and nephrology and general surgery is on board. Current medications reviewed. Pulmonary is on board. Objective - Vital Signs Vital signs: Vital Signs Temp 98.8 F 08/13/21 16:00 Pulse 91 08/13/21 22:00 Resp 37 H 08/13/21 22:00 BP 96/54 08/13/21 22:00 Pulse Ox 87 L 08/13/21 22:00 Intake & Output 08/13/21 08/13/21 08/14/21 06:59 18:59 06:59 Intake Total 2369.947 1825.145 319.181 Output Total 2135 5515 720 Balance 234.947 -3689.855 -400.819 Weight 129.5 kg Intake: IV 636 376 46 Piperacillin-Tazobactam 3 100 .375 gm In Sodium Chloride 0.9% 100 ml @ 25 mls/hr IVPB Q8H [facility] Rx#: [id number] Sodium Chloride 0.9% 1, 600 240 40 000 ml @ 20 mls/hr IV . Q24H [facility] Rx#:[id number] pressure bag .9 36 36 6 Intake, IV Titration 4141.558 6777.145 111.181 Amount Cisatracurium 200 mg In 164.385 182.317 Sodium Chloride 0.9% 180 ml @ 1 MCG/KG/MIN 7.893 mls/hr IV .Q24H [facility] Rx#: [id number] Clevidipine Butyrate 25 63.534 mg In Empty Bag 1 bag @ 1 MG/HR 2 mls/hr IV .Q24H [facility] Rx#:[id number] Heparin Sod,Pork in 0.45% 438.823 240.671 NaCl 25,000 unit In 0.45 % NaCl 1 250ml.bag @ 17. 485 UNITS/KG/HR 23 mls/hr IV .[id number] [facility] Rx#: [id number] Levofloxacin 250Mg-D5w 50 Pmx 250 mg In Dextrose/ Water 1 50ml.bag @ 50 mls /hr IVPB Q24H [facility] Rx#: [id number] fentaNYL (PF). 2,500 mcg 318.987 401.275 11.181 In Sodium Chloride 0.9% 200 ml @ 0.5 MCG/KG/HR 6. 577 mls/hr IV .Q24H [facility] Rx#:[id number] propofoL 1,000 mg In 490.218 532.882 100 Empty Bag 1 bag @ Titrate IV .Q0M [facility] Rx#: [id number] Tube Feeding 168 42 42 Other 90 120 Output: Urine 2135 5515 720 Other: Voiding Method Indwelling Catheter Indwelling Catheter Indwelling Catheter # Bowel Movements 1 ABP, PAP, CO, CI - Last Documented Arterial Blood Pressure 128/60 - Exam - Exam -GENERAL: The patient is intubated and sedated, not in any acute distress. Obese HEENT: Pupils are round and equally reacting to light. EOMI. No scleral icterus. No conjunctival pallor. Normocephalic, atraumatic. No pharyngeal erythema. No thyromegaly. CARDIOVASCULAR: S1 and S2 present. No murmurs, rubs, or gallops. -PULMONARY: Chest is clear to auscultation, no wheezing bilateral crepitation, tachypnea ABDOMEN: Soft, nontender, nondistended, normoactive bowel sounds. No palpable or ganomegaly. MUSCULOSKELETAL: No joint swelling or deformity. EXTREMITIES: No cyanosis, clubbing, or pedal edema. NEUROLOGICAL: Gross neurological examination did not reveal any focal deficits. SKIN: No rashes. No petechiae - Labs CBC & Chem 7: 08/15/21 04:05 08/15/21 04:05 Labs: Abnormal Lab Results - Last 24 Hours (Table) 08/12/21 08/12/21 08/13/21 Range/Units 04:05 23:54 04:05 WBC (3.8-10.6) k/uL RBC (4.30-5.90) m/uL Hgb (13.0-17.5) gm/dL Hct (39.0-53.0) % MCHC (31.0-37.0) g/dL Plt Count (150-450) k/uL Neutrophils # (1.3-7.7) k/uL Monocytes # (0-1.0) k/uL APTT (22.0-30.0) sec D-Dimer 2.68 H (<0.60) mg/L FEU ABG pH (7.35-7.45) ABG pCO2 (35-45) mmHg ABG pO2 (83-108) mmHg ABG HCO3 (21-25) mmol/L ABG Total CO2 (19-24) mmol/L ABG O2 Saturation (94-97) % Potassium (3.5-5.1) mmol/L Chloride (98-107) mmol/L BUN (9-20) mg/dL Creatinine (0.66-1.25) mg/dL Glucose (74-99) mg/dL POC Glucose (mg/dL) 106 H (75-99) mg/dL AST (17-59) U/L ALT (4-49) U/L Lactate Dehydrogenase (313-618) U/L C-Reactive Protein (<1.0) mg/dL Albumin (3.5-5.0) g/dL Procalcitonin 0.69 H (0.02-0.09) ng/mL 08/13/21 08/13/21 08/13/21 Range/Units 04:05 04:05 04:05 WBC 30.0 H (3.8-10.6) k/uL RBC 3.52 L (4.30-5.90) m/uL Hgb 9.5 L D (13.0-17.5) gm/dL Hct 31.7 L (39.0-53.0) % MCHC 29.9 L (31.0-37.0) g/dL Plt Count 634 H (150-450) k/uL Neutrophils # 24.6 H (1.3-7.7) k/uL Monocytes # 1.3 H (0-1.0) k/uL APTT 36.5 H (22.0-30.0) sec D-Dimer (<0.60) mg/L FEU ABG pH (7.35-7.45) ABG pCO2 (35-45) mmHg ABG pO2 (83-108) mmHg ABG HCO3 (21-25) mmol/L ABG Total CO2 (19-24) mmol/L ABG O2 Saturation (94-97) % Potassium 5.6 H (3.5-5.1) mmol/L Chloride 108 H (98-107) mmol/L BUN 51 H (9-20) mg/dL Creatinine 1.61 H (0.66-1.25) mg/dL Glucose 128 H (74-99) mg/dL POC Glucose (mg/dL) (75-99) mg/dL AST 75 H (17-59) U/L ALT 193 H (4-49) U/L Lactate Dehydrogenase 1730 H (313-618) U/L C-Reactive Protein 4.1 H (<1.0) mg/dL Albumin 3.1 L (3.5-5.0) g/dL Procalcitonin (0.02-0.09) ng/mL 08/13/21 08/13/21 08/13/21 Range/Units 04:25 10:26 11:40 WBC (3.8-10.6) k/uL RBC (4.30-5.90) m/uL Hgb (13.0-17.5) gm/dL Hct (39.0-53.0) % MCHC (31.0-37.0) g/dL Plt Count (150-450) k/uL Neutrophils # (1.3-7.7) k/uL Monocytes # (0-1.0) k/uL APTT 65.7 H (22.0-30.0) sec D-Dimer (<0.60) mg/L FEU ABG pH 7.26 L 7.32 L (7.35-7.45) ABG pCO2 62 H 55 H (35-45) mmHg ABG pO2 49 L* 74 L (83-108) mmHg ABG HCO3 28 H 28 H (21-25) mmol/L ABG Total CO2 30 H 30 H (19-24) mmol/L ABG O2 Saturation 75.8 L 93.6 L (94-97) % Potassium (3.5-5.1) mmol/L Chloride (98-107) mmol/L BUN (9-20) mg/dL Creatinine (0.66-1.25) mg/dL Glucose (74-99) mg/dL POC Glucose (mg/dL) (75-99) mg/dL AST (17-59) U/L ALT (4-49) U/L Lactate Dehydrogenase (313-618) U/L C-Reactive Protein (<1.0) mg/dL Albumin (3.5-5.0) g/dL Procalcitonin (0.02-0.09) ng/mL 08/13/21 08/13/21 08/13/21 Range/Units 11:43 15:40 17:43 WBC (3.8-10.6) k/uL RBC (4.30-5.90) m/uL Hgb (13.0-17.5) gm/dL Hct (39.0-53.0) % MCHC (31.0-37.0) g/dL Plt Count (150-450) k/uL Neutrophils # (1.3-7.7) k/uL Monocytes # (0-1.0) k/uL APTT (22.0-30.0) sec D-Dimer (<0.60) mg/L FEU ABG pH (7.35-7.45) ABG pCO2 (35-45) mmHg ABG pO2 (83-108) mmHg ABG HCO3 (21-25) mmol/L ABG Total CO2 (19-24) mmol/L ABG O2 Saturation (94-97) % Potassium 5.2 H (3.5-5.1) mmol/L Chloride (98-107) mmol/L BUN (9-20) mg/dL Creatinine (0.66-1.25) mg/dL Glucose (74-99) mg/dL POC Glucose (mg/dL) 121 H 109 H (75-99) mg/dL AST (17-59) U/L ALT (4-49) U/L Lactate Dehydrogenase (313-618) U/L C-Reactive Protein (<1.0) mg/dL Albumin (3.5-5.0) g/dL Procalcitonin (0.02-0.09) ng/mL Assessment and Plan Assessment: Acute bilateral Covid pneumonia, with suspected bacterial superinfection mainly in the left lower lobe Acute hypoxic respiratory failure, even intubation and mechanical ventilation Right lung PE maintained on IV heparin Elevated inflammatory markers Acute kidney injury secondary to ATN with Covid pneumonia Hypertension Hyperkalemia secondary to acute kidney injury Anemia Metabolic acidosis Elevated d-dimer Obesity with BMI of 49.8 Plan: This is a pleasant 31 years old male who presents with bilateral Covid pneumonia and hypoxia. Patient remains on mechanical ventilator.. Continue With IV dexamethasone . Continue with vitamin C, vitamin D and zinc. Discontinue Baricitinib . Continue with Zosyn and Levaquin. c/w heparin drip. Start normal saline on 75 mL/h Pulmonary and nephrology is on board. Monitor creatinine. Pulmonary/critical care team is following. Labs and medication were reviewed. Monitor lytes and vitals. DVT and GI prophylaxis. Further recommendations depends on the clinical course of the patient DVT prophylaxis: Heparin drip GI Prophylaxis: Protonix Time with Patient: Greater than 30
[2021-08-13 23:50] LABS: Glucose,Whole Blood 112 mg/dL (75-99)
[2021-08-14] MEDS: CISATRACURIUM 200 MG in SODIUM CHLORIDE 0.9% 180 ML IV SCH ×2 (00:59→13:54)
[2021-08-14] MEDS: PIPERACILLIN-TAZOBACTAM 3.375 GM in SODIUM CHLORIDE 0.9% 100 ML IVPB SCH ×3 (04:18→20:06)
[2021-08-14] MEDS: ARTIFICIAL TEARS-HYPROMELLOSE DROPS 15 ML BTL BOTH EYES SCH ×6 (04:19→23:48)
[2021-08-14] MEDS: HEPARIN SOD,PORK IN 0.45% NACL 25,000 UNIT in 0.45% NACL 1 250ML.BAG IV SCH ×2 (04:19→19:14)
[2021-08-14 05:06] LABS: ABG Base Excess 3.6 mmol/L; ABG HCO3 29 mmol/L (21-25); ABG Oxygen Saturation 80.7 % (94-97); ABG PCO2 51 mmHg (35-45); ABG PH 7.37 (7.35-7.45); ABG TCO2 31 mmol/L (19-24); Allen Test Performed? Yes
[2021-08-14 05:12] LABS: ABG PO2 49 mmHg (83-108)
[2021-08-14 05:19] LABS: Anisocytosis Slight; HCT 25.1 % (39.0-53.0); Hypochromasia Moderate; MCH 27.2 pg (25.0-35.0); MCHC 30.7 g/dL (31.0-37.0); MCV 88.6 fL (80.0-100.0); Mean Platelet Volume 9.1; Platelet Count 462 k/uL (150-450); RBC 2.83 m/uL (4.30-5.90); RDW 16.2 % (11.5-15.5); WBC 17.5 k/uL (3.8-10.6)
[2021-08-14 05:55] LABS: Albumin 2.7 g/dL (3.5-5.0); Calcium 9.1 mg/dL (8.4-10.2); Potassium 5.2 mmol/L (3.5-5.1); Total Bilirubin 0.6 mg/dL (0.2-1.3); Total Protein 5.5 g/dL (6.3-8.2)
[2021-08-14] MEDS: INSULIN ASPART (NovoLOG) 100 UNIT/ML VIAL SQ SCH ×3 (06:00→19:15)
[2021-08-14 06:07] LABS: HGB 7.7 gm/dL (13.0-17.5)
[2021-08-14] MEDS: ALBUTEROL HFA INHALER INHALATION PRN ×3 (07:38→21:30)
[2021-08-14] MEDS: fentaNYL (PF). 2,500 MCG in SODIUM CHLORIDE 0.9% 200 ML IV SCH (08:02)
--- NOTE | 2021-08-14 08:12 | XR ---
EXAMINATION TYPE: XR chest 1V portable DATE OF EXAM: 08/14/2021 COMPARISON: 08/13/2021 INDICATION: Vent difficulty breathing,Covid TECHNIQUE: Single frontal view of the chest is obtained. FINDINGS: The heart size is normal. The pulmonary vasculature is somewhat prominent. Diffuse increased lung markings are present within the mid and lower lung stevens. Correlate for atele ctasis and pneumonia. Endotracheal tube tip is above the delmer. Nasogastric tube transverses the thorax. PICC line enters on the left, the tip in superior vena cava region IMPRESSION: 1. Bibasilar infiltrates, similar to prior examination. Continued follow-up is recommended.
[2021-08-14] MEDS ORDERED: LACTATED RINGERS 1,000 ML IV SCH (08:39)
[2021-08-14] MEDS ORDERED: FUROSEMIDE 10 MG/ML 10 ML VIAL IV STA (08:54)
[2021-08-14] MEDS: PANTOPRAZOLE 40 MG/10 ML VIAL IVP SCH ×2 (09:45→20:06)
--- NOTE | 2021-08-14 09:47 | P.PN ---
Subjective Patient is seen in follow-up for acute kidney injury. Renal function stable. Nonoliguric. On 55% FiO2. Receiving tube feeds. Potassium level 5.2 this morning. Received 2 doses of IV Lasix 60 mg yesterday. Vital signs are stable. Intubated. Exam discussed with the nurse. Objective - Vital Signs Vital signs: Vital Signs Temp 98.4 F 08/14/21 08:00 Pulse 75 08/14/21 08:00 Resp 38 H 08/14/21 08:00 BP 96/54 08/14/21 08:00 Pulse Ox 93 L 08/14/21 08:00 Intake & Output 08/13/21 08/14/21 08/14/21 18:59 06:59 18:59 Intake Total 0289.044 7950.901 218.419 Output Total 5515 2690 Balance -3689.855 -1016.099 218.419 Weight 128.2 kg 128.2 kg Intake: IV 376 276 Piperacillin-Tazobactam 3 100 .375 gm In Sodium Chloride 0.9% 100 ml @ 25 mls/hr IVPB Q8H [facility] Rx#: [id number] Sodium Chloride 0.9% 1, 240 240 000 ml @ 20 mls/hr IV . Q24H [facility] Rx#:[id number] pressure bag .9 36 36 Intake, IV Titration 6250.717 7998.901 218.419 Amount Cisatracurium 200 mg In 182.317 163.901 Sodium Chloride 0.9% 180 ml @ 1 MCG/KG/MIN 7.893 mls/hr IV .Q24H [facility] Rx#: [id number] Heparin Sod,Pork in 0.45% 240.671 250 118.419 NaCl 25,000 unit In 0.45 % NaCl 1 250ml.bag @ 17. 485 UNITS/KG/HR 23 mls/hr IV .[id number] [facility] Rx#: [id number] Levofloxacin 250Mg-D5w 50 Pmx 250 mg In Dextrose/ Water 1 50ml.bag @ 50 mls /hr IVPB Q24H [facility] Rx#: [id number] fentaNYL (PF). 2,500 mcg 401.275 250.000 In Sodium Chloride 0.9% 200 ml @ 0.5 MCG/KG/HR 6. 577 mls/hr IV .Q24H [facility] Rx#:[id number] propofoL 1,000 mg In 532.882 500 100 Empty Bag 1 bag @ Titrate IV .Q0M [facility] Rx#: [id number] Tube Feeding 42 84 Other 150 Output: Urine 5126 6910 Other: Voiding Method Indwelling Catheter Indwelling Catheter # Bowel Movements 1 ABP, PAP, CO, CI - Last Documented Arterial Blood Pressure 123/61 - Labs CBC & Chem 7: 08/14/21 03:50 08/14/21 03:50 Labs: Abnormal Lab Results - Last 24 Hours (Table) 08/13/21 08/13/21 08/13/21 Range/Units 10:26 11:40 11:43 WBC (3.8-10.6) k/uL RBC (4.30-5.90) m/uL Hgb (13.0-17.5) gm/dL Hct (39.0-53.0) % MCHC (31.0-37.0) g/dL RDW (11.5-15.5) % Plt Count (150-450) k/uL APTT 65.7 H (22.0-30.0) sec ABG pH 7.32 L (7.35-7.45) ABG pCO2 55 H (35-45) mmHg ABG pO2 74 L (83-108) mmHg ABG HCO3 28 H (21-25) mmol/L ABG Total CO2 30 H (19-24) mmol/L ABG O2 Saturation 93.6 L (94-97) % Potassium (3.5-5.1) mmol/L Chloride (98-107) mmol/L BUN (9-20) mg/dL Creatinine (0.66-1.25) mg/dL Glucose (74-99) mg/dL POC Glucose (mg/dL) 121 H (75-99) mg/dL ALT (4-49) U/L Total Protein (6.3-8.2) g/dL Albumin (3.5-5.0) g/dL 08/13/21 08/13/21 08/13/21 Range/Units 15:40 17:43 23:48 WBC (3.8-10.6) k/uL RBC (4.30-5.90) m/uL Hgb (13.0-17.5) gm/dL Hct (39.0-53.0) % MCHC (31.0-37.0) g/dL RDW (11.5-15.5) % Plt Count (150-450) k/uL APTT (22.0-30.0) sec ABG pH (7.35-7.45) ABG pCO2 (35-45) mmHg ABG pO2 (83-108) mmHg ABG HCO3 (21-25) mmol/L ABG Total CO2 (19-24) mmol/L ABG O2 Saturation (94-97) % Potassium 5.2 H (3.5-5.1) mmol/L Chloride (98-107) mmol/L BUN (9-20) mg/dL Creatinine (0.66-1.25) mg/dL Glucose (74-99) mg/dL POC Glucose (mg/dL) 109 H 112 H (75-99) mg/dL ALT (4-49) U/L Total Protein (6.3-8.2) g/dL Albumin (3.5-5.0) g/dL 08/14/21 08/14/21 08/14/21 Range/Units 03:50 03:50 03:50 WBC 17.5 H (3.8-10.6) k/uL RBC 2.83 L (4.30-5.90) m/uL Hgb 7.7 L D (13.0-17.5) gm/dL Hct 25.1 L (39.0-53.0) % MCHC 30.7 L (31.0-37.0) g/dL RDW 16.2 H (11.5-15.5) % Plt Count 462 H (150-450) k/uL APTT 54.7 H (22.0-30.0) sec ABG pH (7.35-7.45) ABG pCO2 (35-45) mmHg ABG pO2 (83-108) mmHg ABG HCO3 (21-25) mmol/L ABG Total CO2 (19-24) mmol/L ABG O2 Saturation (94-97) % Potassium 5.2 H (3.5-5.1) mmol/L Chloride 108 H (98-107) mmol/L BUN 51 H (9-20) mg/dL Creatinine 1.77 H (0.66-1.25) mg/dL Glucose 110 H (74-99) mg/dL POC Glucose (mg/dL) (75-99) mg/dL ALT 149 H (4-49) U/L Total Protein 5.5 L (6.3-8.2) g/dL Albumin 2.7 L (3.5-5.0) g/dL 08/14/21 Range/Units 05:03 WBC (3.8-10.6) k/uL RBC (4.30-5.90) m/uL Hgb (13.0-17.5) gm/dL Hct (39.0-53.0) % MCHC (31.0-37.0) g/dL RDW (11.5-15.5) % Plt Count (150-450) k/uL APTT (22.0-30.0) sec ABG pH (7.35-7.45) ABG pCO2 51 H (35-45) mmHg ABG pO2 49 L* (83-108) mmHg ABG HCO3 29 H (21-25) mmol/L ABG Total CO2 31 H (19-24) mmol/L ABG O2 Saturation 80.7 L (94-97) % Potassium (3.5-5.1) mmol/L Chloride (98-107) mmol/L BUN (9-20) mg/dL Creatinine (0.66-1.25) mg/dL Glucose (74-99) mg/dL POC Glucose (mg/dL) (75-99) mg/dL ALT (4-49) U/L Total Protein (6.3-8.2) g/dL Albumin (3.5-5.0) g/dL Assessment and Plan Plan: Assessment: 1. Acute kidney injury secondary to ATN secondary to COVID-19 infection and contrast-induced acute kidney injury. Renal function fairly stable. Creatinine 1.77 today. Baseline creatinine near 1. 2. Hyperkalemia secondary to acute kidney injury. Stable. No evidence of acidosis. Blood sugars stable. ?heparin induced. 3. Acute hypoxic respiratory failure secondary to covert pneumonia and PE. On 50% FiO2. 4. Right lung PE maintained on anticoagulation. 5. Benign hypertension. Stable. 6. Lower extremity edema. Plan: Remains off IV fluids. Receiving tube feeds. Avoid nephrotoxins. Wean FiO2. Continue to monitor renal function and urine output. Repeat potassium level this evening. Hold off on diuretics at this time. Urine output is over 100 mL an hour.
[2021-08-14] MEDS: amLODIPine 5 MG TAB PO SCH (09:48)
[2021-08-14] MEDS: ASCORBIC ACID 500 MG TAB PO SCH (09:49)
[2021-08-14] MEDS: CHOLECALCIFEROL 25 MCG (1000 IU) TABLET PO SCH (09:50)
[2021-08-14] MEDS: CHLORHEXIDINE GLUCONATE 15 ML CUP MUCOUS MEM SCH ×2 (09:50→20:05)
--- NOTE | 2021-08-14 09:50 | P.PN ---
Subjective Progress Note Date: 08/14/21 Principal diagnosis: Coronavirus associated pneumonia. Acute hypoxic respiratory failure secondary to COVID-19 pneumonia On today's evaluation patient is seen in follow-up on 08/05/2021, he is currently on BiPAP support with pressure of 14/8, and the pulse ox is 87-93%, patient does alternate with Airvo at 60 L and 90% FiO2, and at bedtime and as needed for periods of time during the day he does go on BiPAP. He is awake and alert, he sitting up on the edge of the bed, dyspneic with exertion, but no acute distress, he remains on Bicitra neb, he is on IV Decadron, Lovenox 60 mg twice daily, he is on 0.9 normal saline at a rate of 50 ML per hour, he is on multivitamins, his latest chest x-ray from 08/04/2021 showed improved inspiration, improved right basilar focal consolidation, and persistent bilateral diffuse reticulonodular opacities in the lower lungs consistent with known COVID-19 infection. Today's labs have been reviewed, his white blood cell count is 19.1, hemoglobin is 13.1, d-dimer is 14.3, sodium is 133, the rest of electrolytes and renal profile were fairly unremarkable, his inflammatory markers are relatively stable and LDH is 2935, and CRP is 18.2, pro calcitonin level is slightly improved and is down to 0.40. His blood and sputum cultures have shown no growth. He did have a fever with a temp of 101.7F. Currently afebrile. No complaints of chest discomfort. No hemoptysis, his lower extremity Dopplers were negative for DVT. On 08/06/2021 patient seen in follow-up on medical surgical floor. Patient still requiring high flow oxygen per Airvo, and he is requiring BiPAP support most of time with pressures of 14/88 and FiO2 of 100% and his pulse ox is 87- 90%, he continues to have fevers, with a T-max 101.7F, overnight his fever pa ttern has improved and he still having some low-grade fevers. He is short of breath with any exertion. He continues on Decadron 6 mg daily, Baricitinib, and Lovenox at intermediate dosing at 0.5 mg/kg twice daily which is above 60 mg twice daily for this patient's weight. His d-dimer is down to 8.58 on today's labs, improved although still significantly elevated, lower extremity Dopplers were negative for any evidence of DVT. There is concern for superimposed bacterial infection, especially in view of fever, and elevated white blood cell count. Today's white count is 22.1, hemoglobin is 13, sodium is 131, rest of electrolytes were within normal limits, B1 is 27 creatinine 0.89, pro Level Was Borderline at 0.40, Also Suggestive of a Possible Super Imposed Bacterial Infection. Patient was transferred yesterday to the ICU, and around 2 AM this morning, I was notified about this patient is not doing well. Patient was noted to be desaturating, anxious, tachycardic, and patient did not improve much with Precedex. Hence I recommended intubating the patient. Patient was intubated by GL[facility] BENDER, trace on mechanical ventilation, and he is now on assist control rate of 38, tidal volume of 375 100% FiO2 and PEEP is 18. His ABG showed a pO2 of 99 pCO2 57 pH of 7.27. Patient is on multiple drips including propofol at 50 fentanyl at 0.25 mcg/kg/h, Nimbex at 1 and he is on IV fluid 0.9 normal saline at 50 mL per hour. Patient was actually intubated around 2:45 AM this morning. Reviewed his chest x-ray, clearly showed bilateral infiltrates, consistent with COVID-19 pneumonia. His endotracheal tube is in the proper position. And his orogastric tube is also in the proper position. After reviewing his ABG, I cut down his FiO2 to 90%, may consider going higher on the PEEP, may also consider placing the patient in prone position. I have consulted interventional radiology for a PICC line placement, and I went ahead and placed a right radial arterial line. Patient will be off heparin for a couple of hours prior to the PICC line placement. I reviewed his CT angiogram of the chest from yesterday, the minor evidence of pulmonary embolism is not clinically impressive, however nonetheless the patient will need to be heparinized noticing that he has elevated d-dimer and the fact that he has COVID-19 pneumonia which is a major provoking factor for thrombus embolic disease. WBC count today is 19 hemoglobin is 11.9 his PTT was therapeutic initially at 50.1, and this morning it is 37.9, patient received a heparin bolus. Electrolytes are normal potassium is 5.1 BUN is 28 creatinine is 1.03. Medications espinoza, patient is on albuterol, amlodipine, vitamin C, Peridex, vitamin D, Nimbex, Decadron 6 mg IV push daily, fentanyl, heparin, hydralazine, metoprolol, lisinopril, Protonix, Zosyn, and zinc. Used to be on baricitimib, however because of his leukocytosis and elevat ed pro calcitonin, this was discontinued, and we started the patient empirically on antibiotics. Blood cultures and sputum cultures so far are negative. And they seem to be nondiagnostic so far. At one point, the patient was spiking fevers, his T-max yesterday was 99.1. The patient is seen today 08/08/2021 and follow-up in the intensive care unit. He remains intubated, sedated, paralyzed and on the mechanical ventilator. Current settings are assist control at a rate of 38, tidal volume 375, FiO2 100% and a PEEP of 18. Peak pressures of 35, plateau of 33. Morning blood gases revealed a PaO2 of 205, pCO2 56, pH 7.22. He remains in sinus tachycardia currently at 104. He is currently on propofol 50 mcg/kg/m, fentanyl at 0.25 mcg/kg per hour, Nimbex at 1 mcg/kg/m, heparin drip per weight-based protocol. 0.9 normal saline at 125 ML's per hour. Staff did attempt to prone the patient yesterday however he had a significant cuff leak, significant desaturations and had to be placed back in supine position almost immediately. Chest x-ray reveals continued diffuse fine interstitial infiltrates, left greater than right with possibly some slight improvement in aeration. Blood cultures reveal no growth. Sputum cultures reveal no growth. White count 15.1. Hemoglobin 9.8. Platelets 230. Lymphocytes 0.8. Sodium 133. Potassium 5.6. Bicarb 21. Creatinine 2.88. Blood glucose 118. AST 39. ALT 61. He is continued on Decadron, Zosyn, vitamin supplements. He is currently afebrile. Not requiring pressors. He is being nourished with vital AF at 20 ML's per hour. Reevaluated today on 08/09/2021, patient remains in the ICU, intubated and mechanically ventilated, sedated and paralyzed. Ventilator settings are assist control rate of 38 tidal volume 375 FiO2 65% PEEP increased to 20 this morning. ABG earlier on a PEEP of 18 showed a pO2 of 66 pCO2 of 56 pH of 7.35. Patient is on Nimbex at 2 mcg/kg/m fentanyl 0.5 mcg/kg/h propofol at 55 mcg/kg/m still on a bicarb drip at 75 mL per hour. Patient is on enteral feeding using vital AF 28/28. Patient remains on Decadron at 6 mg IV push twice a day. Remains on heparin. Remains on the COVID-19 cocktail. Remains on albuterol, remains on GI prophylaxis. Insulin as per protocol, metoprolol Pavithra and empirically on Zosyn for his elevated pro calcitonin level. Chest x-ray continues to show bilateral interstitial infiltrates consistent with COVID-19 pneumonia not much of a change noted on the chest x-ray today. Labs, showed relatively normal CBC. PTT is 41.6, patient is on heparin, electrolytes are normal renal profile showed slight improvement to BUN is 53 creatinine 2.22. Repeat pro calcitonin yesterday was 5.5, last LDH was 2931, and C-reactive protein is elevated at 31.6 Reevaluated today on 08/10/2021, remains in the ICU intubated and mechanically ventilated, sedated and paralyzed. Thank you the settings are assist control rate 38 tidal volumes at 375 FiO2 50% PEEP of 20, peak airway pressure 39 left total pressure is 37 ABG showed a pO2 of 65 pCO2 52 pH of 7.35. Remains on multiple drips including Nimbex at 2 mcg/kg/m, propofol at 70 micrograms per kilo per minute fentanyl at 1.5 mcg/kg/m and cutting down to 1 mcg/kg/m. Remains on enteral feeding with vital AF 28/28. Remains on Decadron 6 mg twice a day remains on Zosyn and his last procalcitonin was 5.5 Chest x-ray continues to show evidence of bilateral infiltrates left seems to be more involved than the right. Labs today showed d-dimer of 1.78 down from 8.58, patient remains on heparin. CT of the chest showed nonocclusive thromboembolic disease. LDH is down to 1114 from 2931 and C-reactive protein is elevated at 19.9 but much better compared to a few days ago where it was about 32. WBC count is 11.8 hemoglobin is 8.4. Platelets are 317,000 Patient was reevaluated today on 08/11/21, patient remains in the ICU, intubated and mechanically ventilated. Patient is sedated and paralyzed, he is on Nimbex at 1.5 mcg/kg/m, fentanyl at 1 mcg/kg/h, propofol is 65 mcg/kg/h, he is also on heparin drip and he is on IV fluid at 65 mL per hour in the form of 0.9 normal saline. Patient is receiving enteral feeding vital AF Ventilator settings include assist control rate of 38 tidal volume 375 FiO2 60% PEEP of 20, ABG showed a pO2 of 58 pCO2 of 55 pH of 7.31, and this was on 55%, hence the FiO2 was increased to 60%. Patient desaturates even with a PEEP down to 18, hence I'm keeping him on a PEEP of 24 now. Chest x-ray shows bilateral infiltrates, however the left lower lobe seems to be more involved than the rest of the lungs, more infiltrate noted in the left lower lobe area. Patient remains on Zosyn, he is off baricitinib, mostly because of his elevated pro calcitonin level, and he was placed on antibiotics empirically. And will add Levaquin empirically in addition to Zosyn. Cultures so far are nondiagnostic. Patient remains on Decadron 6 mg twice a day. And he is also on the COVID-19 cocktail. Patient remains on the COVID-19 cocktail, and he remains on GI and DVT prophylaxis Progress note dated 08/12/2021. 31-year-old black male, again seen in the intensive care unit, room 262. The patient was admitted on July 31 with coronavirus associated pneumonia. He was moved to the intensive care unit on August 06 and intubated on the same day for worsening respiratory failure with hypoxemia. Currently, the patient remains on the mechanical ventilator. He is on the volume assist control mode, rate 38, tidal volume 375, FiO2 60%, to be decreased to 50%, and PEEP of 20. Arterial blood gases show pO2 of 70, pCO2 of 49, and a pH is 7.36. The patient is receiving saline at 50 mL an hour, propofol 60 mcg/kg/m, Nimbex at 2 mcg/kg/m with train of four monitoring, heparin via weightbase protocol, fentanyl at 2 mcg/kg/h, and vital AF at goal, which is 28 mL an hour. White count 15, hemoglobin 7.8, hematocrit 26.1, and platelet count 433,000. D-dimer was 1.68. Sodium 140, potassium 5.3, chlorides 111, CO2 25, anion gap 4, BUN 60, and creatinine 1.73. LDH is 1160. C-reactive protein is 5.8. Chest x-ray shows diffuse bilateral infiltrates. This is consistent with his known diagnosis of coronavirus associated pneumonia. Endotracheal tube is about 3-1/2 cm above the tracheal delmer. Progress note dated 08/13/2021. 31-year-old black male, again seen in the intensive care unit, room 262. The patient was admitted to the hospital on July 31 with coronavirus associated pneumonia. He was moved to the intensive care unit on August 06, and intubated on the same day for worsening hypoxemic respiratory failure. The patient remains on mechanical ventilator. His ventilator settings include the volume assist control, rate 38, tidal volume 375, FiO2 currently 75%, with a PEEP of 20. He had blood gases done early in the morning showing a pO2 of 49, pCO2 of 62, and a pH is 7.26. That was when he was on 50% and when he was getting a bath. Subsequently, we increase his FiO2 to 100%, and he is now been weaned down to 75%. I did asked the respiratory therapist to repeat an ABG. The patient's currently receiving propofol at 75 mcg/kg/m, Nimbex at 2 mcg/kg/m, fentanyl at 3 mcg/kg/h, and heparin via weightbase protocol. He is getting saline at KVO, and tube feedings with Nepro at 14 mL an hour, which is goal. He remains on Zosyn and Levaquin. He is apparently scheduled for tracheostomy and PEG tube placement on Thursday. White count is 30, hemoglobin 9.5, hematocrit 31.7, platelet count 634,000. D-dimer is 2.68. Sodium 140, potassium 5.6, chlorides 108, CO2 27, anion gap 5, BUN 51, and creatinine 1.61. LDH is 1730. C-reactive protein is 4.1. Albumin is 3.1. Chest x-ray shows diffuse bilateral infiltrates, essentially unchanged. Progress note dated 08/14/2021. 31-year-old black male, again seen in the intensive care unit, room 262. The patient was admitted to the hospital on July 31 with coronavirus associated pneumonia. He was moved to the intensive care unit on August 06, and intubated on the same day for worsening oxygenation. The patient remains on the mechanical ventilator. Today, the patient will have a tracheostomy tube placed as well as a PEG tube placed. Current ventilator settings include the volume assist control mode, rate 38, tidal volume 375, FiO2 55%, and PEEP of 20. Blood gases on the same settings except for 40% FiO2, show a PaO2 of 49, pCO2 of 51, and a pH 7.37. When I was alerted about these blood gases, I increased the FiO2 from 40% up to 55%. Currently, saturations are in the low 90s. The patient's on Nimbex at 2 g kilogram per minute, propofol at 65 mcg/kg/m, 0.9 saline at 20 mL an hour, fentanyl at 2 mcg/kg/h, heparin via weightbase protocol, and tube feedings are currently on hold for anticipated tracheostomy and PEG tube today. White count 17.5, hemoglobin 7.7, hematocrit 25.1, and platelet count 462,000. Sodium 139, potassium 5.2, chlorides 108, CO2 24, anion gap 7, BUN 51, and crea tinine 1.77. Chest x-ray again shows diffuse bilateral infiltrates, which are essentially unchanged. Objective - Vital Signs Vital signs: Vital Signs Temp 98.4 F 08/14/21 08:00 Pulse 75 08/14/21 08:00 Resp 38 H 08/14/21 08:00 BP 96/54 08/14/21 08:00 Pulse Ox 93 L 08/14/21 08:00 Intake & Output 08/13/21 08/14/21 08/14/21 18:59 06:59 18:59 Intake Total 6473.592 4196.901 218.419 Output Total 5515 2690 Balance -3689.855 -1016.099 218.419 Weight 128.2 kg 128.2 kg Intake: IV 376 276 Piperacillin-Tazobactam 3 100 .375 gm In Sodium Chloride 0.9% 100 ml @ 25 mls/hr IVPB Q8H [facility] Rx#: [id number] Sodium Chloride 0.9% 1, 240 240 000 ml @ 20 mls/hr IV . Q24H [facility] Rx#:[id number] pressure bag .9 36 36 Intake, IV Titration 3175.806 2455.901 218.419 Amount Cisatracurium 200 mg In 182.317 163.901 Sodium Chloride 0.9% 180 ml @ 1 MCG/KG/MIN 7.893 mls/hr IV .Q24H [facility] Rx#: [id number] Heparin Sod,Pork in 0.45% 240.671 250 118.419 NaCl 25,000 unit In 0.45 % NaCl 1 250ml.bag @ 17. 485 UNITS/KG/HR 23 mls/hr IV .[id number] [facility] Rx#: [id number] Levofloxacin 250Mg-D5w 50 Pmx 250 mg In Dextrose/ Water 1 50ml.bag @ 50 mls /hr IVPB Q24H [facility] Rx#: [id number] fentaNYL (PF). 2,500 mcg 401.275 250.000 In Sodium Chloride 0.9% 200 ml @ 0.5 MCG/KG/HR 6. 577 mls/hr IV .Q24H [facility] Rx#:[id number] propofoL 1,000 mg In 532.882 500 100 Empty Bag 1 bag @ Titrate IV .Q0M [facility] Rx#: [id number] Tube Feeding 42 84 Other 150 Output: Urine 5515 2690 Other: Voiding Method Indwelling Catheter Indwelling Catheter # Bowel Movements 1 ABP, PAP, CO, CI - Last Documented Arterial Blood Pressure 123/61 - Exam No acute distress, sedated and paralyzed, with an orally placed endotracheal tube. HEENT examination is grossly unremarkable. Neck supple. Full range of motion. No adenopathy thyromegaly or neck vein distention. Cardiovascular examination reveals regular rhythm rate. S1-S2 normal. No S3 or S4. No discernible murmur noted. Heart sounds are distant. Heart rate 75 bpm. Lungs reveal coarse bilateral rhonchi. Breath sounds equal bilaterally. No wheezes or crackles. Saturations are 94% on 55% FiO2. Abdomen soft bowel sounds are heard. No masses or tenderness. Extremities are intact. No cyanosis clubbing or edema. Skin is without rash or lesion. Neurologic examination cannot be adequately assessed at this time given the level of sedation and paralysis. - Labs CBC & Chem 7: 08/14/21 03:50 08/14/21 03:50 Labs: Abnormal Lab Results - Last 24 Hours (Table) 08/13/21 08/13/21 08/13/21 Range/Units 10:26 11:40 11:43 WBC (3.8-10.6) k/uL RBC (4.30-5.90) m/uL Hgb (13.0-17.5) gm/dL Hct (39.0-53.0) % MCHC (31.0-37.0) g/dL RDW (11.5-15.5) % Plt Count (150-450) k/uL APTT 65.7 H (22.0-30.0) sec ABG pH 7.32 L (7.35-7.45) ABG pCO2 55 H (35-45) mmHg ABG pO2 74 L (83-108) mmHg ABG HCO3 28 H (21-25) mmol/L ABG Total CO2 30 H (19-24) mmol/L ABG O2 Saturation 93.6 L (94-97) % Potassium (3.5-5.1) mmol/L Chloride (98-107) mmol/L BUN (9-20) mg/dL Creatinine (0.66-1.25) mg/dL Glucose (74-99) mg/dL POC Glucose (mg/dL) 121 H (75-99) mg/dL ALT (4-49) U/L Total Protein (6.3-8.2) g/dL Albumin (3.5-5.0) g/dL 08/13/21 08/13/21 08/13/21 Range/Units 15:40 17:43 23:48 WBC (3.8-10.6) k/uL RBC (4.30-5.90) m/uL Hgb (13.0-17.5) gm/dL Hct (39.0-53.0) % MCHC (31.0-37.0) g/dL RDW (11.5-15.5) % Plt Count (150-450) k/uL APTT (22.0-30.0) sec ABG pH (7.35-7.45) ABG pCO2 (35-45) mmHg ABG pO2 (83-108) mmHg ABG HCO3 (21-25) mmol/L ABG Total CO2 (19-24) mmol/L ABG O2 Saturation (94-97) % Potassium 5.2 H (3.5-5.1) mmol/L Chloride (98-107) mmol/L BUN (9-20) mg/dL Creatinine (0.66-1.25) mg/dL Glucose (74-99) mg/dL POC Glucose (mg/dL) 109 H 112 H (75-99) mg/dL ALT (4-49) U/L Total Protein (6.3-8.2) g/dL Albumin (3.5-5.0) g/dL 08/14/21 08/14/21 08/14/21 Range/Units 03:50 03:50 03:50 WBC 17.5 H (3.8-10.6) k/uL RBC 2.83 L (4.30-5.90) m/uL Hgb 7.7 L D (13.0-17.5) gm/dL Hct 25.1 L (39.0-53.0) % MCHC 30.7 L (31.0-37.0) g/dL RDW 16.2 H (11.5-15.5) % Plt Count 462 H (150-450) k/uL APTT 54.7 H (22.0-30.0) sec ABG pH (7.35-7.45) ABG pCO2 (35-45) mmHg ABG pO2 (83-108) mmHg ABG HCO3 (21-25) mmol/L ABG Total CO2 (19-24) mmol/L ABG O2 Saturation (94-97) % Potassium 5.2 H (3.5-5.1) mmol/L Chloride 108 H (98-107) mmol/L BUN 51 H (9-20) mg/dL Creatinine 1.77 H (0.66-1.25) mg/dL Glucose 110 H (74-99) mg/dL POC Glucose (mg/dL) (75-99) mg/dL ALT 149 H (4-49) U/L Total Protein 5.5 L (6.3-8.2) g/dL Albumin 2.7 L (3.5-5.0) g/dL 08/14/21 Range/Units 05:03 WBC (3.8-10.6) k/uL RBC (4.30-5.90) m/uL Hgb (13.0-17.5) gm/dL Hct (39.0-53.0) % MCHC (31.0-37.0) g/dL RDW (11.5-15.5) % Plt Count (150-450) k/uL APTT (22.0-30.0) sec ABG pH (7.35-7.45) ABG pCO2 51 H (35-45) mmHg ABG pO2 49 L* (83-108) mmHg ABG HCO3 29 H (21-25) mmol/L ABG Total CO2 31 H (19-24) mmol/L ABG O2 Saturation 80.7 L (94-97) % Potassium (3.5-5.1) mmol/L Chloride (98-107) mmol/L BUN (9-20) mg/dL Creatinine (0.66-1.25) mg/dL Glucose (74-99) mg/dL POC Glucose (mg/dL) (75-99) mg/dL ALT (4-49) U/L Total Protein (6.3-8.2) g/dL Albumin (3.5-5.0) g/dL Assessment and Plan Assessment: Acute hypoxemic respiratory failure secondary to coronavirus associated pneumonia, status post intubation and mechanical ventilation on August 06. Anticipated tracheostomy and PEG tube placement on August 14. Acute respiratory distress syndrome. Elevated inflammatory marker secondary to coronavirus infection. Acute/subacute pulmonary embolism. Elevated liver enzymes secondary to coronavirus infection. Morbid obesity. Plan: Plan dated 08/12/2021. We'll attempt to get the patient off of the paralytic if possible. I gave instructions to the nurse. In addition, we will continue with the propofol and the fentanyl for now. We'll reduce the FiO2 down from 60%, down to 50%. I told the nurses and respiratory therapist except saturations in the mid 80s or higher. The patient will continue on heparin for now. Additional recommendations and suggestions are forthcoming. Prognosis is guarded. We will continue to follow this patient, and make recommendations where appropriate. Plan dated 08/13/2021. We're unable to get the patient off the paralytic. During his bath, his saturations dropped and his blood pressure went up. The nurses contacted me. I ordered the FiO2 to be increased to 100%, and also use labetalol IV for blood pressure control. At that point, he was on maximal dose Cleveprex. He is scheduled for a tracheostomy and PEG tube tomorrow. I think that's espinoza. We will repeat a blood gas and a few minutes. His FiO2 is been weaned down to 75%. Additional recommendations and suggestions are forthcoming. His medications are reviewed. He remains on Zosyn and Levaquin. Microbiology is as far all negative. Plan dated 08/14/2021. The patient's going to have a tracheostomy and PEG tube placed today by surgery. I think that will give him the best chance of full recovery. The patient's FiO2 was increased from 40%, up to 55%, when I was alerted about the morning blood gases. Patient remains on fentanyl, propofol, and Nimbex. We will resume tube feedings after 24 hours post placement of the feeding tube. Labs, x-rays, and medications all reviewed. Everything is appropriate at this time. The patient remains on antibiotics in the form of Zosyn and Levaquin. Microbiology thus far as all been negative. We will continue to follow make recommendations where appropriate. Prognosis is guarded. Time with Patient: Greater than 30
[2021-08-14] MEDS: DEXAMETHASONE SOD PHOSPHATE 10 MG/ML 1 ML VIAL IV SCH ×2 (09:51→20:05)
[2021-08-14] MEDS: METOPROLOL TARTRATE 25 MG TAB PO SCH ×2 (09:52→21:32)
[2021-08-14] MEDS: LEVOFLOXACIN 250MG-D5W PMX 250 MG in DEXTROSE/WATER 1 50ML.BAG IVPB SCH (09:52)
[2021-08-14] MEDS: ZINC SULFATE 220 MG CAP PO SCH (09:55)
[2021-08-14 11:47] LABS: Band Neutrophils % 3 %; Eosinophils # (M) 0.88 k/uL (0-0.7); Lymphocytes # (M) 2.63 k/uL (1.0-4.8); Metamyelocytes # (M) 0.53 k/uL (0); Metamyelocytes % 3 %; Myelocytes # (M) 0.88 k/uL (0); Myelocytes % 5 %; Neutrophils % (M) 67 %; Nucleated Red Blood Cells 0 /100 WBC (0-0); Total Cells Counted 200
--- NOTE | 2021-08-14 17:23 | P.OP ---
Date of Procedure: 08/14/21 Preoperative Diagnosis: Respiratory failure Malnutrition Postoperative Diagnosis: Respiratory failure Malnutrition Procedure(s) Performed: Tracheostomy EGD Anesthesia: MAC Surgeon: Darian Green Estimated Blood Loss (ml): 5 Pathology: none sent Condition: stable Disposition: PACU Description of Procedure: The patient's placed on the bed in supine position. He received general endotracheal tube anesthesia. His neck was prepped and draped usual sterile fashion. Standard [place] incision was made. Then using cautery platysma divided. We liver retractors placed a wound the wound was spread. The strap muscles and then divided in the midline. The thyroid was exposed. The thyroid was divided midline using left cautery. The trachea was exposed. At this point the CABINET FINISHER placed the endotracheal tube in the right mainstem bronchus. Patient's family. The patient was then disconnected from the belly. The tracheotomy was performed between the second third tracheal rings. Under direct vision the endotracheal tube brought back. Then a #9 bovina adjustable cuff tracheostomy tube was placed into the trachea. Patient was ventilated. Patient had adequate ventilation. The skin was closed with 3-0 nylon suture. The tracheostomy tie was secured. Patient tolerated the procedure well. Next the gastroscope placed oropharynx past esophagus and stomach. A suitable light reflux cannot be seen on the anterior abdominal wall due to the thickness of the patient's abdominal wall. At this point the PEG tube could not be placed due to non-visualization of the light reflex to the stomach. The scope was then withdrawn.
[2021-08-14] MEDS: SODIUM CHLORIDE 0.9% 1,000 ML IV SCH (19:14)
[2021-08-14 20:17] LABS: Glucose,Whole Blood 106 mg/dL (75-99)
[2021-08-14 23:48] LABS: Glucose,Whole Blood 90 mg/dL (75-99)
[2021-08-15] MEDS: INSULIN ASPART (NovoLOG) 100 UNIT/ML VIAL SQ SCH ×4 (00:32→17:25)
[2021-08-15 04:07] LABS: Glucose,Whole Blood 102 mg/dL (75-99)
[2021-08-15 04:57] LABS: Anisocytosis Slight; HCT 23.7 % (39.0-53.0); HGB 7.4 gm/dL (13.0-17.5); Hypochromasia Marked; MCH 28.2 pg (25.0-35.0); MCV 90.8 fL (80.0-100.0); Mean Platelet Volume 8.9; Platelet Count 404 k/uL (150-450); RBC 2.61 m/uL (4.30-5.90); RDW 17.2 % (11.5-15.5); WBC 15.6 k/uL (3.8-10.6)
[2021-08-15 05:00] LABS: Albumin 2.8 g/dL (3.5-5.0); C Reactive Protein 3.1 mg/dL (<1.0); Potassium 4.9 mmol/L (3.5-5.1); Total Bilirubin 0.7 mg/dL (0.2-1.3); Total Protein 5.7 g/dL (6.3-8.2)
[2021-08-15 05:10] LABS: Partial Thromboplastin Time 20.9 sec (22.0-30.0)
[2021-08-15 05:26] LABS: Band Neutrophils % 12 %; Lymphocytes # (M) 1.25 k/uL (1.0-4.8); Metamyelocytes # (M) 0.47 k/uL (0); Metamyelocytes % 3 %; Monocytes # (M) 0.78 k/uL (0-1.0); Myelocytes # (M) 0.16 k/uL (0); Myelocytes % 1 %; Neutrophils % (M) 71 %; Nucleated Red Blood Cells 0 /100 WBC (0-0); Total Cells Counted 200
[2021-08-15 05:29] LABS: Anisocytosis (M) Present; Poikilocytosis (M) Present; Polychromasia Present
[2021-08-15 05:29] LABS: ABG Base Excess 3.9 mmol/L; ABG HCO3 29 mmol/L (21-25); ABG Oxygen Saturation 93.3 % (94-97); ABG PCO2 47 mmHg (35-45); ABG PO2 70 mmHg (83-108); ABG TCO2 30 mmol/L (19-24); Allen Test Performed? Yes
[2021-08-15] MEDS: HEPARIN SOD,PORK IN 0.45% NACL 25,000 UNIT in 0.45% NACL 1 250ML.BAG IV SCH ×3 (06:17→17:29)
--- NOTE | 2021-08-15 06:45 | XR ---
EXAMINATION TYPE: XR chest 1V portable DATE OF EXAM: 08/15/2021 CLINICAL HISTORY: Difficulty breathing progress study. TECHNIQUE: Single AP portable semiupright view of the chest is obtained. COMPARISON: Chest x-ray from one day earlier and older studies FINDINGS: New tracheostomy tube. Stable left-sided PICC line. Bilateral multifocal and confluent opacities greatest in the lower lungs redemonstrated. Cardiac silh ouette size is stable and upper limits of normal. Osseous structures are intact. IMPRESSION: New tracheostomy tube. Bilateral multifocal and confluent opacities greatest in the lower lungs consistent with covid-19 infection redemonstrated. No significant change from one day earlier.
[2021-08-15] MEDS: ALBUTEROL HFA INHALER INHALATION PRN ×3 (07:25→20:54)
[2021-08-15] MEDS: PANTOPRAZOLE 40 MG/10 ML VIAL IVP SCH ×2 (08:17→20:00)
[2021-08-15] MEDS: CHLORHEXIDINE GLUCONATE 15 ML CUP MUCOUS MEM SCH ×2 (08:18→20:00)
[2021-08-15] MEDS: DEXAMETHASONE SOD PHOSPHATE 10 MG/ML 1 ML VIAL IV SCH ×2 (08:18→20:00)
[2021-08-15] MEDS: ARTIFICIAL TEARS-HYPROMELLOSE DROPS 15 ML BTL BOTH EYES SCH ×6 (08:18→23:20)
[2021-08-15] MEDS: PIPERACILLIN-TAZOBACTAM 3.375 GM in SODIUM CHLORIDE 0.9% 100 ML IVPB SCH ×3 (08:18→19:57)
[2021-08-15] MEDS: LEVOFLOXACIN 250MG-D5W PMX 250 MG in DEXTROSE/WATER 1 50ML.BAG IVPB SCH (08:18)
[2021-08-15] MEDS ORDERED: HEPARIN SODIUM 1,000 UN/ML (10ML VL) IV PRN (08:47)
[2021-08-15] MEDS: CLEVIDIPINE BUTYRATE 25 MG in EMPTY BAG 1 BAG IV SCH (09:00)
[2021-08-15] MEDS ORDERED: FUROSEMIDE 10 MG/ML 10 ML VIAL IV STA (09:09)
--- NOTE | 2021-08-15 09:37 | P.PN ---
Subjective Patient is seen in follow-up for acute kidney injury. Renal function stable. Nonoliguric. Status post tracheostomy on August 14. Potassium level is normal today. Vital signs are stable. Tracheostomy noted. Exam discussed with the nurse. Objective - Vital Signs Vital signs: Vital Signs Temp 98.1 F 08/15/21 04:00 Pulse 74 08/15/21 07:00 Resp 38 H 08/15/21 07:00 BP 96/54 08/15/21 04:00 Pulse Ox 95 08/15/21 07:00 Intake & Output 08/14/21 08/15/21 08/15/21 18:59 06:59 18:59 Intake Total 808.419 845.758 20 Output Total 2630 1501 125 Balance -1821.581 -655.242 -105 Weight 128.2 kg 124.4 kg Intake: IV 240 420 20 Piperacillin-Tazobactam 3 200 .375 gm In Sodium Chloride 0.9% 100 ml @ 25 mls/hr IVPB Q8H [facility] Rx#: [id number] Sodium Chloride 0.9% 1, 240 220 20 000 ml @ 20 mls/hr IV . Q24H [facility] Rx#:[id number] Intake, IV Titration 568.419 425.758 Amount Cisatracurium 200 mg In 200 Sodium Chloride 0.9% 180 ml @ 1 MCG/KG/MIN 7.893 mls/hr IV .Q24H [facility] Rx#: [id number] Heparin Sod,Pork in 0.45% 118.419 NaCl 25,000 unit In 0.45 % NaCl 1 250ml.bag @ 17. 485 UNITS/KG/HR 23 mls/hr IV .[id number] [facility] Rx#: [id number] Levofloxacin 250Mg-D5w 50 Pmx 250 mg In Dextrose/ Water 1 50ml.bag @ 50 mls /hr IVPB Q24H [facility] Rx#: [id number] fentaNYL (PF). 2,500 mcg 250 In Sodium Chloride 0.9% 200 ml @ 0.5 MCG/KG/HR 6. 577 mls/hr IV .Q24H [facility] Rx#:[id number] propofoL 1,000 mg In 200 175.758 Empty Bag 1 bag @ Titrate IV .Q0M [facility] Rx#: [id number] Output: Urine 2625 1501 125 Estimated Blood Loss 5 Other: Voiding Method Indwelling Catheter Indwelling Catheter ABP, PAP, CO, CI - Last Documented Arterial Blood Pressure 105/75 - Labs CBC & Chem 7: 08/15/21 04:05 08/15/21 04:05 Labs: Abnormal Lab Results - Last 24 Hours (Table) 08/14/21 08/14/21 08/15/21 Range/Units 03:50 20:15 04:05 WBC (3.8-10.6) k/uL RBC (4.30-5.90) m/uL Hgb (13.0-17.5) gm/dL Hct (39.0-53.0) % RDW (11.5-15.5) % Neutrophils # (Manual) 12.20 H (1.3-7.7) k/uL Eosinophils # (Manual) 0.88 H (0-0.7) k/uL Metamyelocytes # (Man) 0.53 H (0) k/uL Myelocytes # (Manual) 0.88 H (0) k/uL APTT 20.9 L (22.0-30.0) sec D-Dimer 3.76 H (<0.60) mg/L FEU ABG pCO2 (35-45) mmHg ABG pO2 (83-108) mmHg ABG HCO3 (21-25) mmol/L ABG Total CO2 (19-24) mmol/L ABG O2 Saturation (94-97) % BUN (9-20) mg/dL Creatinine (0.66-1.25) mg/dL POC Glucose (mg/dL) 106 H (75-99) mg/dL ALT (4-49) U/L Lactate Dehydrogenase (313-618) U/L C-Reactive Protein (<1.0) mg/dL Total Protein (6.3-8.2) g/dL Albumin (3.5-5.0) g/dL 08/15/21 08/15/21 08/15/21 Range/Units 04:05 04:05 04:06 WBC 15.6 H (3.8-10.6) k/uL RBC 2.61 L (4.30-5.90) m/uL Hgb 7.4 L (13.0-17.5) gm/dL Hct 23.7 L (39.0-53.0) % RDW 17.2 H (11.5-15.5) % Neutrophils # (Manual) 12.90 H (1.3-7.7) k/uL Eosinophils # (Manual) (0-0.7) k/uL Metamyelocytes # (Man) 0.47 H (0) k/uL Myelocytes # (Manual) 0.16 H (0) k/uL APTT (22.0-30.0) sec D-Dimer (<0.60) mg/L FEU ABG pCO2 (35-45) mmHg ABG pO2 (83-108) mmHg ABG HCO3 (21-25) mmol/L ABG Total CO2 (19-24) mmol/L ABG O2 Saturation (94-97) % BUN 49 H (9-20) mg/dL Creatinine 1.59 H (0.66-1.25) mg/dL POC Glucose (mg/dL) 102 H (75-99) mg/dL ALT 125 H (4-49) U/L Lactate Dehydrogenase 942 H (313-618) U/L C-Reactive Protein 3.1 H (<1.0) mg/dL Total Protein 5.7 L (6.3-8.2) g/dL Albumin 2.8 L (3.5-5.0) g/dL 08/15/21 Range/Units 05:24 WBC (3.8-10.6) k/uL RBC (4.30-5.90) m/uL Hgb (13.0-17.5) gm/dL Hct (39.0-53.0) % RDW (11.5-15.5) % Neutrophils # (Manual) (1.3-7.7) k/uL Eosinophils # (Manual) (0-0.7) k/uL Metamyelocytes # (Man) (0) k/uL Myelocytes # (Manual) (0) k/uL APTT (22.0-30.0) sec D-Dimer (<0.60) mg/L FEU ABG pCO2 47 H (35-45) mmHg ABG pO2 70 L (83-108) mmHg ABG HCO3 29 H (21-25) mmol/L ABG Total CO2 30 H (19-24) mmol/L ABG O2 Saturation 93.3 L (94-97) % BUN (9-20) mg/dL Creatinine (0.66-1.25) mg/dL POC Glucose (mg/dL) (75-99) mg/dL ALT (4-49) U/L Lactate Dehydrogenase (313-618) U/L C-Reactive Protein (<1.0) mg/dL Total Protein (6.3-8.2) g/dL Albumin (3.5-5.0) g/dL Assessment and Plan Plan: Assessment: 1. Acute kidney injury secondary to ATN secondary to COVID-19 infection and contrast-induced acute kidney injury. Renal function fairly stable. Creatinine 1.59 today. Baseline creatinine near 1. 2. Hyperkalemia secondary to acute kidney injury. No evidence of acidosis. Blood sugars stable. ?heparin induced. Improved. 3. Acute hypoxic respiratory failure secondary to covert pneumonia and PE. Status post tracheostomy on August 14. 4. Right lung PE maintained on anticoagulation. 5. Benign hypertension. Stable. 6. Lower extremity edema. Plan: Remains off IV fluids. Tube feeds to be resumed. Avoid nephrotoxins. Continue to monitor renal function and urine output. No changes from nephrology standpoint today.
--- NOTE | 2021-08-15 09:40 | P.PN ---
Subjective Progress Note Date: 08/15/21 Principal diagnosis: Coronavirus associated pneumonia. Acute hypoxic respiratory failure secondary to COVID-19 pneumonia On today's evaluation patient is seen in follow-up on 08/05/2021, he is currently on BiPAP support with pressure of 14/8, and the pulse ox is 87-93%, patient does alternate with Airvo at 60 L and 90% FiO2, and at bedtime and as needed for periods of time during the day he does go on BiPAP. He is awake and alert, he sitting up on the edge of the bed, dyspneic with exertion, but no acute distress, he remains on Bicitra neb, he is on IV Decadron, Lovenox 60 mg twice daily, he is on 0.9 normal saline at a rate of 50 ML per hour, he is on multivitamins, his latest chest x-ray from 08/04/2021 showed improved inspiration, improved right basilar focal consolidation, and persistent bilateral diffuse reticulonodular opacities in the lower lungs consistent with known COVID-19 infection. Today's labs have been reviewed, his white blood cell count is 19.1, hemoglobin is 13.1, d-dimer is 14.3, sodium is 133, the rest of electrolytes and renal profile were fairly unremarkable, his inflammatory markers are relatively stable and LDH is 2935, and CRP is 18.2, pro calcitonin level is slightly improved and is down to 0.40. His blood and sputum cultures have shown no growth. He did have a fever with a temp of 101.7F. Currently afebrile. No complaints of chest discomfort. No hemoptysis, his lower extremity Dopplers were negative for DVT. On 08/06/2021 patient seen in follow-up on medical surgical floor. Patient still requiring high flow oxygen per Airvo, and he is requiring BiPAP support most of time with pressures of 14/88 and FiO2 of 100% and his pulse ox is 87- 90%, he continues to have fevers, with a T-max 101.7F, overnight his fever pa ttern has improved and he still having some low-grade fevers. He is short of breath with any exertion. He continues on Decadron 6 mg daily, Baricitinib, and Lovenox at intermediate dosing at 0.5 mg/kg twice daily which is above 60 mg twice daily for this patient's weight. His d-dimer is down to 8.58 on today's labs, improved although still significantly elevated, lower extremity Dopplers were negative for any evidence of DVT. There is concern for superimposed bacterial infection, especially in view of fever, and elevated white blood cell count. Today's white count is 22.1, hemoglobin is 13, sodium is 131, rest of electrolytes were within normal limits, B1 is 27 creatinine 0.89, pro Level Was Borderline at 0.40, Also Suggestive of a Possible Super Imposed Bacterial Infection. Patient was transferred yesterday to the ICU, and around 2 AM this morning, I was notified about this patient is not doing well. Patient was noted to be desaturating, anxious, tachycardic, and patient did not improve much with Precedex. Hence I recommended intubating the patient. Patient was intubated by RADIO ARTIST, trace on mechanical ventilation, and he is now on assist control rate of 38, tidal volume of 375 100% FiO2 and PEEP is 18. His ABG showed a pO2 of 99 pCO2 57 pH of 7.27. Patient is on multiple drips including propofol at 50 fentanyl at 0.25 mcg/kg/h, Nimbex at 1 and he is on IV fluid 0.9 normal saline at 50 mL per hour. Patient was actually intubated around 2:45 AM this morning. Reviewed his chest x-ray, clearly showed bilateral infiltrates, consistent with COVID-19 pneumonia. His endotracheal tube is in the proper position. And his orogastric tube is also in the proper position. After reviewing his ABG, I cut down his FiO2 to 90%, may consider going higher on the PEEP, may also consider placing the patient in prone position. I have consulted interventional radiology for a PICC line placement, and I went ahead and placed a right radial arterial line. Patient will be off heparin for a couple of hours prior to the PICC line placement. I reviewed his CT angiogram of the chest from yesterday, the minor evidence of pulmonary embolism is not clinically impressive, however nonetheless the patient will need to be heparinized noticing that he has elevated d-dimer and the fact that he has COVID-19 pneumonia which is a major provoking factor for thrombus embolic disease. WBC count today is 19 hemoglobin is 11.9 his PTT was therapeutic initially at 50.1, and this morning it is 37.9, patient received a heparin bolus. Electrolytes are normal potassium is 5.1 BUN is 28 creatinine is 1.03. Medications espinoza, patient is on albuterol, amlodipine, vitamin C, Peridex, vitamin D, Nimbex, Decadron 6 mg IV push daily, fentanyl, heparin, hydralazine, metoprolol, lisinopril, Protonix, Zosyn, and zinc. Used to be on baricitimib, however because of his leukocytosis and elevat ed pro calcitonin, this was discontinued, and we started the patient empirically on antibiotics. Blood cultures and sputum cultures so far are negative. And they seem to be nondiagnostic so far. At one point, the patient was spiking fevers, his T-max yesterday was 99.1. The patient is seen today 08/08/2021 and follow-up in the intensive care unit. He remains intubated, sedated, paralyzed and on the mechanical ventilator. Current settings are assist control at a rate of 38, tidal volume 375, FiO2 100% and a PEEP of 18. Peak pressures of 35, plateau of 33. Morning blood gases revealed a PaO2 of 205, pCO2 56, pH 7.22. He remains in sinus tachycardia currently at 104. He is currently on propofol 50 mcg/kg/m, fentanyl at 0.25 mcg/kg per hour, Nimbex at 1 mcg/kg/m, heparin drip per weight-based protocol. 0.9 normal saline at 125 ML's per hour. Staff did attempt to prone the patient yesterday however he had a significant cuff leak, significant desaturations and had to be placed back in supine position almost immediately. Chest x-ray reveals continued diffuse fine interstitial infiltrates, left greater than right with possibly some slight improvement in aeration. Blood cultures reveal no growth. Sputum cultures reveal no growth. White count 15.1. Hemoglobin 9.8. Platelets 230. Lymphocytes 0.8. Sodium 133. Potassium 5.6. Bicarb 21. Creatinine 2.88. Blood glucose 118. AST 39. ALT 61. He is continued on Decadron, Zosyn, vitamin supplements. He is currently afebrile. Not requiring pressors. He is being nourished with vital AF at 20 ML's per hour. Reevaluated today on 08/09/2021, patient remains in the ICU, intubated and mechanically ventilated, sedated and paralyzed. Ventilator settings are assist control rate of 38 tidal volume 375 FiO2 65% PEEP increased to 20 this morning. ABG earlier on a PEEP of 18 showed a pO2 of 66 pCO2 of 56 pH of 7.35. Patient is on Nimbex at 2 mcg/kg/m fentanyl 0.5 mcg/kg/h propofol at 55 mcg/kg/m still on a bicarb drip at 75 mL per hour. Patient is on enteral feeding using vital AF 28/28. Patient remains on Decadron at 6 mg IV push twice a day. Remains on heparin. Remains on the COVID-19 cocktail. Remains on albuterol, remains on GI prophylaxis. Insulin as per protocol, metoprolol Pavithra and empirically on Zosyn for his elevated pro calcitonin level. Chest x-ray continues to show bilateral interstitial infiltrates consistent with COVID-19 pneumonia not much of a change noted on the chest x-ray today. Labs, showed relatively normal CBC. PTT is 41.6, patient is on heparin, electrolytes are normal renal profile showed slight improvement to BUN is 53 creatinine 2.22. Repeat pro calcitonin yesterday was 5.5, last LDH was 2931, and C-reactive protein is elevated at 31.6 Reevaluated today on 08/10/2021, remains in the ICU intubated and mechanically ventilated, sedated and paralyzed. Thank you the settings are assist control rate 38 tidal volumes at 375 FiO2 50% PEEP of 20, peak airway pressure 39 left total pressure is 37 ABG showed a pO2 of 65 pCO2 52 pH of 7.35. Remains on multiple drips including Nimbex at 2 mcg/kg/m, propofol at 70 micrograms per kilo per minute fentanyl at 1.5 mcg/kg/m and cutting down to 1 mcg/kg/m. Remains on enteral feeding with vital AF 28/28. Remains on Decadron 6 mg twice a day remains on Zosyn and his last procalcitonin was 5.5 Chest x-ray continues to show evidence of bilateral infiltrates left seems to be more involved than the right. Labs today showed d-dimer of 1.78 down from 8.58, patient remains on heparin. CT of the chest showed nonocclusive thromboembolic disease. LDH is down to 1114 from 2931 and C-reactive protein is elevated at 19.9 but much better compared to a few days ago where it was about 32. WBC count is 11.8 hemoglobin is 8.4. Platelets are 317,000 Patient was reevaluated today on 08/11/21, patient remains in the ICU, intubated and mechanically ventilated. Patient is sedated and paralyzed, he is on Nimbex at 1.5 mcg/kg/m, fentanyl at 1 mcg/kg/h, propofol is 65 mcg/kg/h, he is also on heparin drip and he is on IV fluid at 65 mL per hour in the form of 0.9 normal saline. Patient is receiving enteral feeding vital AF Ventilator settings include assist control rate of 38 tidal volume 375 FiO2 60% PEEP of 20, ABG showed a pO2 of 58 pCO2 of 55 pH of 7.31, and this was on 55%, hence the FiO2 was increased to 60%. Patient desaturates even with a PEEP down to 18, hence I'm keeping him on a PEEP of 24 now. Chest x-ray shows bilateral infiltrates, however the left lower lobe seems to be more involved than the rest of the lungs, more infiltrate noted in the left lower lobe area. Patient remains on Zosyn, he is off baricitinib, mostly because of his elevated pro calcitonin level, and he was placed on antibiotics empirically. And will add Levaquin empirically in addition to Zosyn. Cultures so far are nondiagnostic. Patient remains on Decadron 6 mg twice a day. And he is also on the COVID-19 cocktail. Patient remains on the COVID-19 cocktail, and he remains on GI and DVT prophylaxis Progress note dated 08/12/2021. 31-year-old black male, again seen in the intensive care unit, room 262. The patient was admitted on July 31 with coronavirus associated pneumonia. He was moved to the intensive care unit on August 06 and intubated on the same day for worsening respiratory failure with hypoxemia. Currently, the patient remains on the mechanical ventilator. He is on the volume assist control mode, rate 38, tidal volume 375, FiO2 60%, to be decreased to 50%, and PEEP of 20. Arterial blood gases show pO2 of 70, pCO2 of 49, and a pH is 7.36. The patient is receiving saline at 50 mL an hour, propofol 60 mcg/kg/m, Nimbex at 2 mcg/kg/m with train of four monitoring, heparin via weightbase protocol, fentanyl at 2 mcg/kg/h, and vital AF at goal, which is 28 mL an hour. White count 15, hemoglobin 7.8, hematocrit 26.1, and platelet count 433,000. D-dimer was 1.68. Sodium 140, potassium 5.3, chlorides 111, CO2 25, anion gap 4, BUN 60, and creatinine 1.73. LDH is 1160. C-reactive protein is 5.8. Chest x-ray shows diffuse bilateral infiltrates. This is consistent with his known diagnosis of coronavirus associated pneumonia. Endotracheal tube is about 3-1/2 cm above the tracheal delmer. Progress note dated 08/13/2021. 31-year-old black male, again seen in the intensive care unit, room 262. The patient was admitted to the hospital on July 31 with coronavirus associated pneumonia. He was moved to the intensive care unit on August 06, and intubated on the same day for worsening hypoxemic respiratory failure. The patient remains on mechanical ventilator. His ventilator settings include the volume assist control, rate 38, tidal volume 375, FiO2 currently 75%, with a PEEP of 20. He had blood gases done early in the morning showing a pO2 of 49, pCO2 of 62, and a pH is 7.26. That was when he was on 50% and when he was getting a bath. Subsequently, we increase his FiO2 to 100%, and he is now been weaned down to 75%. I did asked the respiratory therapist to repeat an ABG. The patient's currently receiving propofol at 75 mcg/kg/m, Nimbex at 2 mcg/kg/m, fentanyl at 3 mcg/kg/h, and heparin via weightbase protocol. He is getting saline at KVO, and tube feedings with Nepro at 14 mL an hour, which is goal. He remains on Zosyn and Levaquin. He is apparently scheduled for tracheostomy and PEG tube placement on Thursday. White count is 30, hemoglobin 9.5, hematocrit 31.7, platelet count 634,000. D-dimer is 2.68. Sodium 140, potassium 5.6, chlorides 108, CO2 27, anion gap 5, BUN 51, and creatinine 1.61. LDH is 1730. C-reactive protein is 4.1. Albumin is 3.1. Chest x-ray shows diffuse bilateral infiltrates, essentially unchanged. Progress note dated 08/14/2021. 31-year-old black male, again seen in the intensive care unit, room 262. The patient was admitted to the hospital on July 31 with coronavirus associated pneumonia. He was moved to the intensive care unit on August 06, and intubated on the same day for worsening oxygenation. The patient remains on the mechanical ventilator. Today, the patient will have a tracheostomy tube placed as well as a PEG tube placed. Current ventilator settings include the volume assist control mode, rate 38, tidal volume 375, FiO2 55%, and PEEP of 20. Blood gases on the same settings except for 40% FiO2, show a PaO2 of 49, pCO2 of 51, and a pH 7.37. When I was alerted about these blood gases, I increased the FiO2 from 40% up to 55%. Currently, saturations are in the low 90s. The patient's on Nimbex at 2 g kilogram per minute, propofol at 65 mcg/kg/m, 0.9 saline at 20 mL an hour, fentanyl at 2 mcg/kg/h, heparin via weightbase protocol, and tube feedings are currently on hold for anticipated tracheostomy and PEG tube today. White count 17.5, hemoglobin 7.7, hematocrit 25.1, and platelet count 462,000. Sodium 139, potassium 5.2, chlorides 108, CO2 24, anion gap 7, BUN 51, and crea tinine 1.77. Chest x-ray again shows diffuse bilateral infiltrates, which are essentially unchanged. Progress note dated 08/15/2021. 31-year-old black male, again seen in the ICU, room 262. The patient was admitted to the hospital on July 31 with coronavirus associated pneumonia. Because of worsening hypoxemia, he was moved to the intensive care unit on August 06. It's intubated on the same day. He remains on mechanical ventilator. Yesterday, he had a tracheostomy performed. A PEG tube was apparently attempted, but not able to be performed. He remains on the volume assist control mode with, with a rate of 38, tidal volume 375, FiO2 55%, any. Arterial blood gases show pO2 70, pCO2 37, and a pH is 7.4. The patient's currently on propofol at 75 mcg/kg/m, Nimbex at 2 mcg/kg/m, fentanyl at 2.5 mcg/kg/h, saline at 20 mL an hour, and he will be restarted on IV heparin. Unfortunately, there was no NG tube. It was removed during the attempted procedure yesterday, and the nurses have been having a hard time replacing it. We will try again today. White count 15.6, hemoglobin 7.4, hematocrit 23.7, and platelet count 404,000. PTT was 20.9. D-dimer 3.76. Sodium 137, potassium 4.9, chlorides 105, CO2 25, anion gap 7, BUN 49, and creatinine 1.59. Chest x- ray continues to show diffuse bilateral infiltrates, may be a bit improved. Objective - Vital Signs Vital signs: Vital Signs Temp 98.1 F 08/15/21 04:00 Pulse 74 08/15/21 07:00 Resp 38 H 08/15/21 07:00 BP 96/54 08/15/21 04:00 Pulse Ox 95 08/15/21 07:00 Intake & Output 08/14/21 08/15/21 08/15/21 18:59 06:59 18:59 Intake Total 808.419 845.758 20 Output Total 2630 1501 125 Balance -1821.581 -655.242 -105 Weight 128.2 kg 124.4 kg Intake: IV 240 420 20 Piperacillin-Tazobactam 3 200 .375 gm In Sodium Chloride 0.9% 100 ml @ 25 mls/hr IVPB Q8H [facility] Rx#: [id number] Sodium Chloride 0.9% 1, 240 220 20 000 ml @ 20 mls/hr IV . Q24H [facility] Rx#:[id number] Intake, IV Titration 568.419 425.758 Amount Cisatracurium 200 mg In 200 Sodium Chloride 0.9% 180 ml @ 1 MCG/KG/MIN 7.893 mls/hr IV .Q24H [facility] Rx#: [id number] Heparin Sod,Pork in 0.45% 118.419 NaCl 25,000 unit In 0.45 % NaCl 1 250ml.bag @ 17. 485 UNITS/KG/HR 23 mls/hr IV .[id number] [facility] Rx#: [id number] Levofloxacin 250Mg-D5w 50 Pmx 250 mg In Dextrose/ Water 1 50ml.bag @ 50 mls /hr IVPB Q24H [facility] Rx#: [id number] fentaNYL (PF). 2,500 mcg 250 In Sodium Chloride 0.9% 200 ml @ 0.5 MCG/KG/HR 6. 577 mls/hr IV .Q24H [facility] Rx#:[id number] propofoL 1,000 mg In 200 175.758 Empty Bag 1 bag @ Titrate IV .Q0M [facility] Rx#: [id number] Output: Urine 2625 1501 125 Estimated Blood Loss 5 Other: Voiding Method Indwelling Catheter Indwelling Catheter ABP, PAP, CO, CI - Last Documented Arterial Blood Pressure 105/75 - Exam No acute distress, sedated and paralyzed, with a midline tracheostomy tube. HEENT examination is grossly unremarkable. Neck supple. Full range of motion. No adenopathy thyromegaly or neck vein distention. Cardiovascular examination reveals regular rhythm rate. S1-S2 normal. No S3 or S4. No discernible murmur noted. Heart sounds are distant. Heart rate 74 bpm. Lungs reveal coarse bilateral rhonchi. Breath sounds equal bilaterally. No wheezes or crackles. Saturations are 95% on 55% FiO2 and a PEEP of 20. Abdomen soft bowel sounds are heard. No masses or tenderness. Extremities are intact. No cyanosis clubbing or edema. Skin is without rash or lesion. Neurologic examination cannot be adequately assessed at this time given the level of sedation and paralysis. - Labs CBC & Chem 7: 08/15/21 04:05 08/15/21 04:05 Labs: Abnormal Lab Results - Last 24 Hours (Table) 08/14/21 08/14/21 08/15/21 Range/Units 03:50 20:15 04:05 WBC (3.8-10.6) k/uL RBC (4.30-5.90) m/uL Hgb (13.0-17.5) gm/dL Hct (39.0-53.0) % RDW (11.5-15.5) % Neutrophils # (Manual) 12.20 H (1.3-7.7) k/uL Eosinophils # (Manual) 0.88 H (0-0.7) k/uL Metamyelocytes # (Man) 0.53 H (0) k/uL Myelocytes # (Manual) 0.88 H (0) k/uL APTT 20.9 L (22.0-30.0) sec D-Dimer 3.76 H (<0.60) mg/L FEU ABG pCO2 (35-45) mmHg ABG pO2 (83-108) mmHg ABG HCO3 (21-25) mmol/L ABG Total CO2 (19-24) mmol/L ABG O2 Saturation (94-97) % BUN (9-20) mg/dL Creatinine (0.66-1.25) mg/dL POC Glucose (mg/dL) 106 H (75-99) mg/dL ALT (4-49) U/L Lactate Dehydrogenase (313-618) U/L C-Reactive Protein (<1.0) mg/dL Total Protein (6.3-8.2) g/dL Albumin (3.5-5.0) g/dL 08/15/21 08/15/21 08/15/21 Range/Units 04:05 04:05 04:06 WBC 15.6 H (3.8-10.6) k/uL RBC 2.61 L (4.30-5.90) m/uL Hgb 7.4 L (13.0-17.5) gm/dL Hct 23.7 L (39.0-53.0) % RDW 17.2 H (11.5-15.5) % Neutrophils # (Manual) 12.90 H (1.3-7.7) k/uL Eosinophils # (Manual) (0-0.7) k/uL Metamyelocytes # (Man) 0.47 H (0) k/uL Myelocytes # (Manual) 0.16 H (0) k/uL APTT (22.0-30.0) sec D-Dimer (<0.60) mg/L FEU ABG pCO2 (35-45) mmHg ABG pO2 (83-108) mmHg ABG HCO3 (21-25) mmol/L ABG Total CO2 (19-24) mmol/L ABG O2 Saturation (94-97) % BUN 49 H (9-20) mg/dL Creatinine 1.59 H (0.66-1.25) mg/dL POC Glucose (mg/dL) 102 H (75-99) mg/dL ALT 125 H (4-49) U/L Lactate Dehydrogenase 942 H (313-618) U/L C-Reactive Protein 3.1 H (<1.0) mg/dL Total Protein 5.7 L (6.3-8.2) g/dL Albumin 2.8 L (3.5-5.0) g/dL 08/15/21 Range/Units 05:24 WBC (3.8-10.6) k/uL RBC (4.30-5.90) m/uL Hgb (13.0-17.5) gm/dL Hct (39.0-53.0) % RDW (11.5-15.5) % Neutrophils # (Manual) (1.3-7.7) k/uL Eosinophils # (Manual) (0-0.7) k/uL Metamyelocytes # (Man) (0) k/uL Myelocytes # (Manual) (0) k/uL APTT (22.0-30.0) sec D-Dimer (<0.60) mg/L FEU ABG pCO2 47 H (35-45) mmHg ABG pO2 70 L (83-108) mmHg ABG HCO3 29 H (21-25) mmol/L ABG Total CO2 30 H (19-24) mmol/L ABG O2 Saturation 93.3 L (94-97) % BUN (9-20) mg/dL Creatinine (0.66-1.25) mg/dL POC Glucose (mg/dL) (75-99) mg/dL ALT (4-49) U/L Lactate Dehydrogenase (313-618) U/L C-Reactive Protein (<1.0) mg/dL Total Protein (6.3-8.2) g/dL Albumin (3.5-5.0) g/dL Assessment and Plan Assessment: Acute hypoxemic respiratory failure secondary to coronavirus associated pneumonia, status post intubation and mechanical ventilation on August 06. Status post tracheostomy tube insertion, 08/14/2021. Unfortunately, PEG tube could not be placed on that same day. Acute respiratory distress syndrome. Elevated inflammatory marker secondary to coronavirus infection. Acute/subacute pulmonary embolism. Elevated liver enzymes secondary to coronavirus infection. Morbid obesity. Plan: Plan dated 08/12/2021. We'll attempt to get the patient off of the paralytic if possible. I gave instructions to the nurse. In addition, we will continue with the propofol and the fentanyl for now. We'll reduce the FiO2 down from 60%, down to 50%. I told the nurses and respiratory therapist except saturations in the mid 80s or higher. The patient will continue on heparin for now. Additional recommendations and suggestions are forthcoming. Prognosis is guarded. We will continue to follow this patient, and make recommendations where appropriate. Plan dated 08/13/2021. We're unable to get the patient off the paralytic. During his bath, his saturations dropped and his blood pressure went up. The nurses contacted me. I ordered the FiO2 to be increased to 100%, and also use labetalol IV for blood pressure control. At that point, he was on maximal dose Cleveprex. He is scheduled for a tracheostomy and PEG tube tomorrow. I think that's espinoza. We will repeat a blood gas and a few minutes. His FiO2 is been weaned down to 75%. Additional recommendations and suggestions are forthcoming. His medications are reviewed. He remains on Zosyn and Levaquin. Microbiology is as far all negative. Plan dated 08/14/2021. The patient's going to have a tracheostomy and PEG tube placed today by surgery. I think that will give him the best chance of full recovery. The patient's FiO2 was increased from 40%, up to 55%, when I was alerted about the morning blood gases. Patient remains on fentanyl, propofol, and Nimbex. We will resume tube feedings after 24 hours post placement of the feeding tube. Labs, x-rays, and medications all reviewed. Everything is appropriate at this time. The patient remains on antibiotics in the form of Zosyn and Levaquin. Microbiology thus far as all been negative. We will continue to follow make recommendations where appropriate. Prognosis is guarded. Plan dated 08/15/2021. The patient did have his tracheostomy tube placed on August 14. Unfortunately, the PEG tube was not able to be place. The patient will be started back on heparin. The nurses will attempt to place an NG tube. The patient remains on propofol, Nimbex, and fentanyl. We will restart tube feeds once the NG tube was replaced. Overall prognosis remains very guarded. Labs, x-rays, and medications are all reviewed. Everything does seem to be appropriate. We will continue to follow this patient, and make recommendations where appropriate. The patient remains on Zosyn and Levaquin, and all microbiologic studies as far have been negative. Time with Patient: Greater than 30
--- NOTE | 2021-08-15 10:20 | P.PN ---
Subjective Progress Note Date: 08/12/21 Principal diagnosis: Acute hypoxemic respiratory failure secondary to Covid pneumonia This is a pleasant 31 years old -[place] man with no significant past medical history presents with dyspnea which started yesterday associated with fever and coughing. Patient tested positive for covid earlier on Thursday after he felt with fever and cough on Thursday but at that time he was not dyspneic. He denies chest pain or abdominal pain but he has diarrhea on and off. No vomi ting. He is saturating 89% on 6 L oxygen via nasal cannula, afebrile. Tachypneic with a breathing rate at 23. CBC, is unremarkable. INR is normal at 1.0. Sodium is 1:30, creatinine normal at 1.1, glucose 103. AST is mildly elevated 106 and ALT mildly elevated 106. Elevated lactate dehydrogenase 2600 and C-reactive protein 20.3. Cholelithiasis positive EKG shows sinus tachycardia and [address]-T changes Chest x-ray showing bilateral infiltrates 08/01/2021 Patient sitting at bedside using 50 L of oxygen via nonrebreather. Reports slight improvement in his breathing and his chest x-ray showing somewhat improvement in that area should on both sides. He has low-grade fever today at 200. Blood pressure is stable. D-dimer is 1.87. BMP is unremarkable, liver enzymes slightly trending down. LDH slightly down at 2437 and slightly decreased and C-reactive protein 16.7. C BC and pro-calcitonin are pending Sputum and blood culture are still pending He remains on multiple vitamins, Baricitinib, dexamethasone and normal saline at 75 mL/h. Also he is on Lovenox. Norvasc is added for blood pressure control also we will add metoprolol Subjective: 08/05/21 patient still with dyspnea requiring BiPAP most of the time. He is developing fever of 101.7 today. Blood pressure 157/91. He has leukocytosis 19.1.liver enzymes Are the same. LDH elevated 2935 and C- reactive protein 18.2 his still on multiple vitamins, Baricitinib, dexamethasone and normal saline at 50 mL/h. Also he is on Lovenox therapeutic dose after his d-dimer yesterday. 08/06/2021 Patient remains on BiPAP needing higher pressures 14/8 and FiO2 of 100%. Also history of chronic fever around 100 and pro-calcitonin elevated at 0.40. This left leukocytosis around 22, LDH and C-reactive protein still elevated. D- dimer is trending down to 8.5 and CTA of the chest today showing negative for PE but bilateral groundglass opacity. Sputum culture 2 is negative. Urine analysis is negative for infection Today patient SWITCHED to heparin drip. Also he was started on Zosyn. Also dexamethasone 6 mg daily and normal saline at 50 mL per hour. Discontinue Baricitinib per pulmonary 08/07/2021 Patient respiratory status got worse and eventually patient got intubated while he is in the ICU. Pulmonary/critical care team following the patient closely and help with vent management. He has a fever of 100. Breathing rate around 29. Blood pressure is stable. WBC down to 19 K, Patient is acidotic with pH of 7.2, pCO2 of 57 which is low and high pO2 of 99. Chest x-ray showed increasing bilateral infiltrate and left lower lobe pneumonia. Repeat sputum culture is pending. First 2 samples were negative He remains on Zosyn, dexamethasone, normal saline at 50 mL per hour , heparin drip, multiple vitamins 08/08/2021 Patient remains in the ICU in critical condition and generally he is not doing well. I'll intubated and on mechanical ventilation with the pulmonary/critical care team R following closely He is hemodynamically stable, mildly tachycardic. WBC improving down to 15 but also hemoglobin dropped to 11.9 down to 9.8. And while he continued on heparin drip for suspected thrombosis secondary to his Covid infection and high d-dimer will increase his for chronic 40 mg daily and to twice a day. Patient FiO2 was lowered to 70%, he did not tolerate the prone position. He has no fever but tachypneic at 38 Today his creatinine went up 1.0 up to 2.8 with mild hyperkalemia however he is making good urine output with yellow urine in his Lees catheter bag nephrology team were consulted and bicarb drip was started for acidosis with pH of 7.22. He remains on Zosyn, dexamethasone, vitamin C, D and zinc. 08/09/2021 Remains in the ICU in critical condition. He continue on mechanical ventilation with pulmonary/critical care team on the consult. He still significantly tachypneic at 38 and leukocytosis. Possibly just at that time level 18 to 20, prone position was tried but patient could not tolerate it so avoided now. Labs showing improvement leukocytosis 12 K, hemoglobin 9.2, FiO2 lower to 55%. Creatinine improved slightly to 2.2 after starting normal saline at 75 mL/h. Chest x-ray showing the same findings of bilateral pneumonia. Dexamethasone was increased to twice daily today, normal saline 75 mL/h started. Well continued on heparin drip, Zosyn and multiple vitamins 08/10/2021 Patient condition did not change much from yesterday. He remains intubation only FiO2 lower to 55 from 70% and PEEP down to 18. With pulmonary/critical care team following the case closely. This remains tachycardia. No need for pressors. He hasn't been fever for the last 48 hours. D-dimer trending down to 1.7. WBC down to 11.8. Hemoglobin down to 8.9. Inflammatory markers improved to 114 and 19.9.. Creatinine is stable from yesterday at 2.2. Chest x-ray showing similar infiltrate both sides more on the left side. He remains on Zosyn, multiple vitamins, dexamethasone, normal saline, heparin drip. 08/11/2021 Patient remains in the ICU in critical condition. He is currently on mechanical ventilation significantly tachypneic around 38. With the floor at about 60 L/m. He is FiO2 of 60% and PEEP of 20. With pulmonary/critical care team opened and vent management. Labs showing WBC 12.6, hemoglobin slightly trending to 7.8. Lactate dehydrogenase 1245 and C-reactive protein down to 13.6. Creatinine is 2.0 Is on Zosyn, dexamethasone, normal sinus 75, heparin drip. 08/12/2021 Patient is currently in the intensive care unit. Remains on mechanical ventilator due to acute hypoxemic respiratory failure with Covid pneumonia Currently on before meals 375, FiO2 60% and PEEP of 20. Patient is on Nimbex drip and heparin subcu. Patient is also on fentanyl. Laboratory data showed WBC 15 hemoglobin 7.8 hematocrit 26.1 and platelets 433 And d-dimer is 1.68 sodium 140 potassium 5.3 chloride 101 bicarb is 25 BUN 16 creatinine 1.73. The LDH 1160. Chest x-ray showed findings similar to prior exam. Correlate for pneumonia, edema, ARDS. Current medications reviewed. Pulmonary is on board. Objective - Vital Signs Vital signs: Vital Signs Temp 97.5 F L 08/12/21 08:00 Pulse 70 08/12/21 09:00 Resp 38 H 08/12/21 09:00 BP 96/54 08/07/21 18:00 Pulse Ox 93 L 08/12/21 09:00 Intake & Output 08/11/21 08/12/21 08/12/21 18:59 06:59 18:59 Intake Total 2450.127 2633.030 699.442 Output Total 1325 1525 100 Balance 4790.222 5030.030 599.442 Weight 129.4 kg 129.4 kg Intake: IV 1139 1058 78 Piperacillin-Tazobactam 3 125 200 .375 gm In Sodium Chloride 0.9% 100 ml @ 25 mls/hr IVPB Q8H [facility] Rx#: [id number] Sodium Chloride 0.9% 1, 975 825 75 000 ml @ 75 mls/hr IV . [id number] [facility] Rx#:[id number] pressure bag .9 39 33 3 Intake, IV Titration 749.869 3651.030 565.442 Amount Cisatracurium 200 mg In 176.993 205.525 56.037 Sodium Chloride 0.9% 180 ml @ 1 MCG/KG/MIN 7.893 mls/hr IV .Q24H [facility] Rx#: [id number] Heparin Sod,Pork in 0.45% 222.605 239.605 232.817 NaCl 25,000 unit In 0.45 % NaCl 1 250ml.bag @ 17. 485 UNITS/KG/HR 23 mls/hr IV .[id number] [facility] Rx#: [id number] Levofloxacin 250Mg-D5w 50 Pmx 250 mg In Dextrose/ Water 1 50ml.bag @ 50 mls /hr IVPB Q24H [facility] Rx#: [id number] fentaNYL (PF). 2,500 mcg 131.869 250.00 180.648 In Sodium Chloride 0.9% 200 ml @ 0.5 MCG/KG/HR 6. 577 mls/hr IV .Q24H [facility] Rx#:[id number] propofoL 1,000 mg In 275.66 481.9 95.94 Empty Bag 1 bag @ Titrate IV .Q0M [facility] Rx#: [id number] Tube Feeding 364 308 56 Other 90 90 Output: Urine 1325 1525 100 Other: Voiding Method Indwelling Catheter Indwelling Catheter ABP, PAP, CO, CI - Last Documented Arterial Blood Pressure 101/57 - Exam - Exam -GENERAL: The patient is intubated and sedated, not in any acute distress. Obese HEENT: Pupils are round and equally reacting to light. EOMI. No scleral icterus. No conjunctival pallor. Normocephalic, atraumatic. No pharyngeal erythema. No thyromegaly. CARDIOVASCULAR: S1 and S2 present. No murmurs, rubs, or gallops. -PULMONARY: Chest is clear to auscultation, no wheezing bilateral crepitation, tachypnea ABDOMEN: Soft, nontender, nondistended, normoactive bowel sounds. No palpable organomegaly. MUSCULOSKELETAL: No joint swelling or deformity. EXTREMITIES: No cyanosis, clubbing, or pedal edema. NEUROLOGICAL: Gross neurological examination did not reveal any focal deficits. SKIN: No rashes. No petechiae - Labs CBC & Chem 7: 08/15/21 04:05 08/15/21 04:05 Labs: Abnormal Lab Results - Last 24 Hours (Table) 08/11/21 08/11/21 08/11/21 Range/Units 12:16 15:30 15:30 WBC (3.8-10.6) k/uL RBC (4.30-5.90) m/uL Hgb (13.0-17.5) gm/dL Hct (39.0-53.0) % MCHC (31.0-37.0) g/dL APTT 52.1 H (22.0-30.0) sec D-Dimer (<0.60) mg/L FEU ABG pCO2 (35-45) mmHg ABG pO2 (83-108) mmHg ABG HCO3 (21-25) mmol/L ABG Total CO2 (19-24) mmol/L ABG O2 Saturation (94-97) % Potassium 5.5 H (3.5-5.1) mmol/L Chloride (98-107) mmol/L BUN (9-20) mg/dL Creatinine (0.66-1.25) mg/dL Glucose (74-99) mg/dL POC Glucose (mg/dL) 116 H (75-99) mg/dL Lactate Dehydrogenase (313-618) U/L C-Reactive Protein (<1.0) mg/dL 08/11/21 08/11/21 08/12/21 Range/Units 18:15 23:36 04:05 WBC (3.8-10.6) k/uL RBC (4.30-5.90) m/uL Hgb (13.0-17.5) gm/dL Hct (39.0-53.0) % MCHC (31.0-37.0) g/dL APTT (22.0-30.0) sec D-Dimer 1.68 H (<0.60) mg/L FEU ABG pCO2 (35-45) mmHg ABG pO2 (83-108) mmHg ABG HCO3 (21-25) mmol/L ABG Total CO2 (19-24) mmol/L ABG O2 Saturation (94-97) % Potassium (3.5-5.1) mmol/L Chloride (98-107) mmol/L BUN (9-20) mg/dL Creatinine (0.66-1.25) mg/dL Glucose (74-99) mg/dL POC Glucose (mg/dL) 106 H 109 H (75-99) mg/dL Lactate Dehydrogenase (313-618) U/L C-Reactive Protein (<1.0) mg/dL 08/12/21 08/12/21 08/12/21 Range/Units 04:05 04:05 04:05 WBC 15.0 H (3.8-10.6) k/uL RBC 2.88 L (4.30-5.90) m/uL Hgb 7.8 L (13.0-17.5) gm/dL Hct 26.1 L (39.0-53.0) % MCHC 29.8 L (31.0-37.0) g/dL APTT 45.0 H (22.0-30.0) sec D-Dimer (<0.60) mg/L FEU ABG pCO2 (35-45) mmHg ABG pO2 (83-108) mmHg ABG HCO3 (21-25) mmol/L ABG Total CO2 (19-24) mmol/L ABG O2 Saturation (94-97) % Potassium 5.3 H (3.5-5.1) mmol/L Chloride 111 H (98-107) mmol/L BUN 60 H (9-20) mg/dL Creatinine 1.73 H (0.66-1.25) mg/dL Glucose 115 H (74-99) mg/dL POC Glucose (mg/dL) (75-99) mg/dL Lactate Dehydrogenase 1160 H (313-618) U/L C-Reactive Protein 5.8 H (<1.0) mg/dL 08/12/21 Range/Units 05:19 WBC (3.8-10.6) k/uL RBC (4.30-5.90) m/uL Hgb (13.0-17.5) gm/dL Hct (39.0-53.0) % MCHC (31.0-37.0) g/dL APTT (22.0-30.0) sec D-Dimer (<0.60) mg/L FEU ABG pCO2 49 H (35-45) mmHg ABG pO2 70 L (83-108) mmHg ABG HCO3 28 H (21-25) mmol/L ABG Total CO2 29 H (19-24) mmol/L ABG O2 Saturation 93.6 L (94-97) % Potassium (3.5-5.1) mmol/L Chloride (98-107) mmol/L BUN (9-20) mg/dL Creatinine (0.66-1.25) mg/dL Glucose (74-99) mg/dL POC Glucose (mg/dL) (75-99) mg/dL Lactate Dehydrogenase (313-618) U/L C-Reactive Protein (<1.0) mg/dL Microbiology - Last 24 Hours (Table) 08/06/21 10:41 Blood Culture - Preliminary Blood No Growth after 120 hours 08/06/21 10:33 Blood Culture - Preliminary Blood No Growth after 120 hours Assessment and Plan Assessment: Acute bilateral Covid pneumonia, with suspected bacterial superinfection mainly in the left lower lobe Acute hypoxic respiratory failure, even intubation and mechanical ventilation Right lung PE maintained on IV heparin Elevated inflammatory markers Acute kidney injury secondary to ATN with Covid pneumonia Hypertension Hyperkalemia secondary to acute kidney injury Anemia Metabolic acidosis Elevated d-dimer Obesity with BMI of 49.8 Plan: This is a pleasant 31 years old male who presents with bilateral Covid pneumonia and hypoxia. Patient remains on mechanical ventilator.. Continue With IV dexamethasone . Continue with vitamin C, vitamin D and zinc. Discontinue Baricitinib . Continue with Zosyn and Levaquin. c/w heparin drip. Start normal saline on 75 mL/h Pulmonary and nephrology is on board. Monitor creatinine. Pulmonary/critical care team is following. Labs and medication were reviewed. Monitor lytes and vitals. DVT and GI prophylaxis. Further recommendations depends on the clinical course of the patient DVT prophylaxis: Heparin drip GI Prophylaxis: Protonix Time with Patient: Greater than 30
--- NOTE | 2021-08-15 10:25 | P.PN ---
Subjective Progress Note Date: 08/14/21 Principal diagnosis: Acute hypoxemic respiratory failure secondary to Covid pneumonia This is a pleasant 31 years old -German man with no significant past medical history presents with dyspnea which started yesterday associated with fever and coughing. Patient tested positive for covid earlier on Thursday after he felt with fever and cough on Thursday but at that time he was not dyspneic. He denies chest pain or abdominal pain but he has diarrhea on and off. No vomi ting. He is saturating 89% on 6 L oxygen via nasal cannula, afebrile. Tachypneic with a breathing rate at 23. CBC, is unremarkable. INR is normal at 1.0. Sodium is 1:30, creatinine normal at 1.1, glucose 103. AST is mildly elevated 106 and ALT mildly elevated 106. Elevated lactate dehydrogenase 2600 and C-reactive protein 20.3. Cholelithiasis positive EKG shows sinus tachycardia and [address]-T changes Chest x-ray showing bilateral infiltrates 08/01/2021 Patient sitting at bedside using 50 L of oxygen via nonrebreather. Reports slight improvement in his breathing and his chest x-ray showing somewhat improvement in that area should on both sides. He has low-grade fever today at 200. Blood pressure is stable. D-dimer is 1.87. BMP is unremarkable, liver enzymes slightly trending down. LDH slightly down at 2437 and slightly decreased and C-reactive protein 16.7. C BC and pro-calcitonin are pending Sputum and blood culture are still pending He remains on multiple vitamins, Baricitinib, dexamethasone and normal saline at 75 mL/h. Also he is on Lovenox. Norvasc is added for blood pressure control also we will add metoprolol Subjective: 08/05/21 patient still with dyspnea requiring BiPAP most of the time. He is developing fever of 101.7 today. Blood pressure 157/91. He has leukocytosis 19.1.liver enzymes Are the same. LDH elevated 2935 and C- reactive protein 18.2 his still on multiple vitamins, Baricitinib, dexamethasone and normal saline at 50 mL/h. Also he is on Lovenox therapeutic dose after his d-dimer yesterday. 08/06/2021 Patient remains on BiPAP needing higher pressures 14/8 and FiO2 of 100%. Also history of chronic fever around 100 and pro-calcitonin elevated at 0.40. This left leukocytosis around 22, LDH and C-reactive protein still elevated. D- dimer is trending down to 8.5 and CTA of the chest today showing negative for PE but bilateral groundglass opacity. Sputum culture 2 is negative. Urine analysis is negative for infection Today patient SWITCHED to heparin drip. Also he was started on Zosyn. Also dexamethasone 6 mg daily and normal saline at 50 mL per hour. Discontinue Baricitinib per pulmonary 08/07/2021 Patient respiratory status got worse and eventually patient got intubated while he is in the ICU. Pulmonary/critical care team following the patient closely and help with vent management. He has a fever of 100. Breathing rate around 29. Blood pressure is stable. WBC down to 19 K, Patient is acidotic with pH of 7.2, pCO2 of 57 which is low and high pO2 of 99. Chest x-ray showed increasing bilateral infiltrate and left lower lobe pneumonia. Repeat sputum culture is pending. First 2 samples were negative He remains on Zosyn, dexamethasone, normal saline at 50 mL per hour , heparin drip, multiple vitamins 08/08/2021 Patient remains in the ICU in critical condition and generally he is not doing well. I'll intubated and on mechanical ventilation with the pulmonary/critical care team R following closely He is hemodynamically stable, mildly tachycardic. WBC improving down to 15 but also hemoglobin dropped to 11.9 down to 9.8. And while he continued on heparin drip for suspected thrombosis secondary to his Covid infection and high d-dimer will increase his for chronic 40 mg daily and to twice a day. Patient FiO2 was lowered to 70%, he did not tolerate the prone position. He has no fever but tachypneic at 38 Today his creatinine went up 1.0 up to 2.8 with mild hyperkalemia however he is making good urine output with yellow urine in his Lees catheter bag nephrology team were consulted and bicarb drip was started for acidosis with pH of 7.22. He remains on Zosyn, dexamethasone, vitamin C, D and zinc. 08/09/2021 Remains in the ICU in critical condition. He continue on mechanical ventilation with pulmonary/critical care team on the consult. He still significantly tachypneic at 38 and leukocytosis. Possibly just at that time level 18 to 20, prone position was tried but patient could not tolerate it so avoided now. Labs showing improvement leukocytosis 12 K, hemoglobin 9.2, FiO2 lower to 55%. Creatinine improved slightly to 2.2 after starting normal saline at 75 mL/h. Chest x-ray showing the same findings of bilateral pneumonia. Dexamethasone was increased to twice daily today, normal saline 75 mL/h started. Well continued on heparin drip, Zosyn and multiple vitamins 08/10/2021 Patient condition did not change much from yesterday. He remains intubation only FiO2 lower to 55 from 70% and PEEP down to 18. With pulmonary/critical care team following the case closely. This remains tachycardia. No need for pressors. He hasn't been fever for the last 48 hours. D-dimer trending down to 1.7. WBC down to 11.8. Hemoglobin down to 8.9. Inflammatory markers improved to 114 and 19.9.. Creatinine is stable from yesterday at 2.2. Chest x-ray showing similar infiltrate both sides more on the left side. He remains on Zosyn, multiple vitamins, dexamethasone, normal saline, heparin drip. 08/11/2021 Patient remains in the ICU in critical condition. He is currently on mechanical ventilation significantly tachypneic around 38. With the floor at about 60 L/m. He is FiO2 of 60% and PEEP of 20. With pulmonary/critical care team opened and vent management. Labs showing WBC 12.6, hemoglobin slightly trending to 7.8. Lactate dehydrogenase 1245 and C-reactive protein down to 13.6. Creatinine is 2.0 Is on Zosyn, dexamethasone, normal sinus 75, heparin drip. 08/12/2021 Patient is currently in the intensive care unit. Remains on mechanical ventilator due to acute hypoxemic respiratory failure with Covid pneumonia Currently on before meals 375, FiO2 60% and PEEP of 20. Patient is on Nimbex drip and heparin subcu. Patient is also on fentanyl. Laboratory data showed WBC 15 hemoglobin 7.8 hematocrit 26.1 and platelets 433 And d-dimer is 1.68 sodium 140 potassium 5.3 chloride 101 bicarb is 25 BUN 16 creatinine 1.73. The LDH 1160. Chest x-ray showed findings similar to prior exam. Correlate for pneumonia, edema, ARDS. 08/13/2021 Patient is currently in the intensive care unit. Remains on mechanical ventilator. Assist control 375 and FiO2 at 50% and PEEP of 20. Currently being continued on Nimbex and fentanyl drip. Patient is being converted on IV heparin due to pulmonary embolism. Patient is being controlled on antibiotic Levaquin and Zosyn. Patient is scheduled for vacation and PEG tube placement tomorrow. Laboratory data showed WBC 30.0, hemoglobin 9.5 platelets 634 D-dimer 2.68, sodium 140 potassium 5.6 chloride 108 BUN 51 and creatinine 1.61, AST 75 ALT 193 Patient is being continued on dexamethasone 6 mg IV twice a day. Pulmonary and nephrology and general surgery is on board. 08/14/2021 Patient is currently in the MICU on mechanical ventilator. His control with tidal volume 375, FiO2 55%, PEEP of 20. Patient is on Nimbex drip and propofol and fentanyl drip as well as heparin drip due to pulmonary embolism. Patient is scheduled for tracheostomy and PEG tube placement. Remains on antibiotics in the form of Levaquin and Zosyn. Laboratory data showed WBC 17.5 hemoglobin 7.7 and platelets 462 Sodium 139 potassium 5.2 chloride 108 BUN 51 and creatinine 1.77 Albumin 2.7 and total protein 5.5. Tube feedings on hold for scheduled surgical procedure. Pulmonary, nephrology and general surgery is on board. Current medications reviewed. Pulmonary is on board. Objective - Vital Signs Vital signs: Vital Signs Temp 98.1 F 08/14/21 20:00 Pulse 70 08/14/21 21:00 Resp 38 H 08/14/21 21:00 BP 96/54 08/14/21 21:00 Pulse Ox 100 08/14/21 21:00 Intake & Output 08/14/21 08/14/21 08/15/21 06:59 18:59 06:59 Intake Total 1673.901 808.419 120 Output Total 2690 2630 175 Balance -1016.099 -1821.581 -55 Weight 128.2 kg 128.2 kg Intake: IV 276 240 120 Piperacillin-Tazobactam 3 100 .375 gm In Sodium Chloride 0.9% 100 ml @ 25 mls/hr IVPB Q8H [facility] Rx#: [id number] Sodium Chloride 0.9% 1, 240 240 20 000 ml @ 20 mls/hr IV . Q24H [facility] Rx#:[id number] pressure bag .9 36 Intake, IV Titration 1163.901 568.419 Amount Cisatracurium 200 mg In 163.901 200 Sodium Chloride 0.9% 180 ml @ 1 MCG/KG/MIN 7.893 mls/hr IV .Q24H [facility] Rx#: [id number] Heparin Sod,Pork in 0.45% 250 118.419 NaCl 25,000 unit In 0.45 % NaCl 1 250ml.bag @ 17. 485 UNITS/KG/HR 23 mls/hr IV .[id number] [facility] Rx#: [id number] Levofloxacin 250Mg-D5w 50 Pmx 250 mg In Dextrose/ Water 1 50ml.bag @ 50 mls /hr IVPB Q24H [facility] Rx#: [id number] fentaNYL (PF). 2,500 mcg 250.000 In Sodium Chloride 0.9% 200 ml @ 0.5 MCG/KG/HR 6. 577 mls/hr IV .Q24H [facility] Rx#:[id number] propofoL 1,000 mg In 500 200 Empty Bag 1 bag @ Titrate IV .Q0M [facility] Rx#: [id number] Tube Feeding 84 Other 150 Output: Urine 2690 2625 175 Estimated Blood Loss 5 Other: Voiding Method Indwelling Catheter Indwelling Catheter ABP, PAP, CO, CI - Last Documented Arterial Blood Pressure 122/63 - Exam - Exam -GENERAL: The patient is intubated and sedated, not in any acute distress. Obese HEENT: Pupils are round and equally reacting to light. EOMI. No scleral icterus. No conjunctival pallor. Normocephalic, atraumatic. No pharyngeal erythema. No thyromegaly. CARDIOVASCULAR: S1 and S2 present. No murmurs, rubs, or gallops. -PULMONARY: Chest is clear to auscultation, no wheezing bilateral crepitation, tachypnea ABDOMEN: Soft, nontender, nondistended, normoactive bowel sounds. No palpable organomegaly. MUSCULOSKELETAL: No joint swelling or deformity. EXTREMITIES: No cyanosis, clubbing, or pedal edema. NEUROLOGICAL: Gross neurological examination did not reveal any focal deficits. SKIN: No rashes. No petechiae - Labs CBC & Chem 7: 08/15/21 04:05 08/15/21 04:05 Labs: Abnormal Lab Results - Last 24 Hours (Table) 08/13/21 08/14/21 08/14/21 Range/Units 23:48 03:50 03:50 WBC 17.5 H (3.8-10.6) k/uL RBC 2.83 L (4.30-5.90) m/uL Hgb 7.7 L D (13.0-17.5) gm/dL Hct 25.1 L (39.0-53.0) % MCHC 30.7 L (31.0-37.0) g/dL RDW 16.2 H (11.5-15.5) % Plt Count 462 H (150-450) k/uL Neutrophils # (Manual) 12.20 H (1.3-7.7) k/uL Eosinophils # (Manual) 0.88 H (0-0.7) k/uL Metamyelocytes # (Man) 0.53 H (0) k/uL Myelocytes # (Manual) 0.88 H (0) k/uL APTT (22.0-30.0) sec ABG pCO2 (35-45) mmHg ABG pO2 (83-108) mmHg ABG HCO3 (21-25) mmol/L ABG Total CO2 (19-24) mmol/L ABG O2 Saturation (94-97) % Potassium 5.2 H (3.5-5.1) mmol/L Chloride 108 H (98-107) mmol/L BUN 51 H (9-20) mg/dL Creatinine 1.77 H (0.66-1.25) mg/dL Glucose 110 H (74-99) mg/dL POC Glucose (mg/dL) 112 H (75-99) mg/dL ALT 149 H (4-49) U/L Total Protein 5.5 L (6.3-8.2) g/dL Albumin 2.7 L (3.5-5.0) g/dL 08/14/21 08/14/21 08/14/21 Range/Units 03:50 05:03 20:15 WBC (3.8-10.6) k/uL RBC (4.30-5.90) m/uL Hgb (13.0-17.5) gm/dL Hct (39.0-53.0) % MCHC (31.0-37.0) g/dL RDW (11.5-15.5) % Plt Count (150-450) k/uL Neutrophils # (Manual) (1.3-7.7) k/uL Eosinophils # (Manual) (0-0.7) k/uL Metamyelocytes # (Man) (0) k/uL Myelocytes # (Manual) (0) k/uL APTT 54.7 H (22.0-30.0) sec ABG pCO2 51 H (35-45) mmHg ABG pO2 49 L* (83-108) mmHg ABG HCO3 29 H (21-25) mmol/L ABG Total CO2 31 H (19-24) mmol/L ABG O2 Saturation 80.7 L (94-97) % Potassium (3.5-5.1) mmol/L Chloride (98-107) mmol/L BUN (9-20) mg/dL Creatinine (0.66-1.25) mg/dL Glucose (74-99) mg/dL POC Glucose (mg/dL) 106 H (75-99) mg/dL ALT (4-49) U/L Total Protein (6.3-8.2) g/dL Albumin (3.5-5.0) g/dL Assessment and Plan Assessment: Acute bilateral Covid pneumonia, with suspected bacterial superinfection mainly in the left lower lobe Acute hypoxic respiratory failure, even intubation and mechanical ventilation Right lung PE maintained on IV heparin Elevated inflammatory markers Acute kidney injury secondary to ATN with Covid pneumonia Hypertension Hyperkalemia secondary to acute kidney injury Anemia Metabolic acidosis Elevated d-dimer Obesity with BMI of 49.8 Plan: This is a pleasant 31 years old male who presents with bilateral Covid pneumonia and hypoxia. Patient remains on mechanical ventilator.. Continue With IV dexamethasone . Continue with vitamin C, vitamin D and zinc. Discontinue Baricitinib . Continue with Zosyn and Levaquin. c/w heparin drip. Continued on normal saline IV. Patient is scheduled for tracheostomy and PEG tube placement today. Pulmonary and nephrology is on board. Monitor creatinine. Pulmonary/critical care team is following. Labs and medication were reviewed. Monitor lytes and vitals. DVT and GI prophylaxis. Further recommendations depends on the clinical course of the patient DVT prophylaxis: Heparin drip GI Prophylaxis: Protonix Time with Patient: Greater than 30
[2021-08-15 12:46] LABS: Glucose,Whole Blood 102 mg/dL (75-99)
[2021-08-15] MEDS: fentaNYL (PF). 2,500 MCG in SODIUM CHLORIDE 0.9% 200 ML IV SCH ×2 (13:51→19:02)
[2021-08-15] MEDS: amLODIPine 5 MG TAB PO SCH (13:59)
[2021-08-15] MEDS: METOPROLOL TARTRATE 25 MG TAB PO SCH ×2 (13:59→20:00)
[2021-08-15] MEDS: ASCORBIC ACID 500 MG TAB PO SCH (13:59)
[2021-08-15] MEDS: CHOLECALCIFEROL 25 MCG (1000 IU) TABLET PO SCH (13:59)
[2021-08-15] MEDS: ZINC SULFATE 220 MG CAP PO SCH (14:00)
[2021-08-15] MEDS: SODIUM CHLORIDE 0.9% 1,000 ML IV SCH ×2 (14:19→15:00)
--- NOTE | 2021-08-15 15:20 | P.PN ---
Subjective Progress Note Date: 08/15/21 CHIEF COMPLAINT: COVID-19 pneumonia HISTORY OF PRESENT ILLNESS: Patient remains in the ICU on mechanical ventilation. He is status post tracheostomy placement. PEG tube was not placed due to nonvisualization of light reflex to the stomach during EGD. Nursing staff is having difficulty getting NG tube placed for nutrition support. Patient's IV heparin has been restarted. Afebrile. WBC is 15.6 hemoglobin 7.4 platelets 404 PHYSICAL EXAM: VITAL SIGNS: Reviewed. GENERAL: Well-developed in no acute distress. HEENT: No sclera icterus. Extraocular movements grossly intact. Moist buccal mucosa. Head is atraumatic, normocephalic. Tracheostomy site clean dry and intact ABDOMEN: Soft. Nondistended. Nontender. NEUROLOGIC: Intubated and sedated ASSESSMENT: 1. Acute hypoxic respiratory failure due to COVID-19 pneumonia with prolonged mechanical intubation. Status post tracheostomy placement 2. Severe protein calorie malnutrition. PEG tube insertion aborted. Unable to visualize light reflex. PLAN: -Dr. Green will reassess for possible PEG tube placement in a couple of days -Continue ICU management -Continue supportive care Physician Continuous Improvement Manager note has been reviewed by physician. Signing provider agrees with the documented findings, assessment, and plan of care. Objective - Vital Signs Vital signs: Vital Signs Temp 98.0 F 08/15/21 12:00 Pulse 91 08/15/21 14:00 Resp 38 H 08/15/21 14:00 BP 96/54 08/15/21 14:00 Pulse Ox 92 L 08/15/21 14:00 Intake & Output 08/14/21 08/15/21 08/15/21 18:59 06:59 18:59 Intake Total 808.419 845.758 603.790 Output Total 2630 1501 1475 Balance -1821.581 -655.242 -871.210 Weight 128.2 kg 124.4 kg Intake: IV 240 420 310 Levofloxacin 250Mg-D5w 50 Pmx 250 mg In Dextrose/ Water 1 50ml.bag @ 50 mls /hr IVPB Q24H [facility] Rx#: [id number] Piperacillin-Tazobactam 3 200 100 .375 gm In Sodium Chloride 0.9% 100 ml @ 25 mls/hr IVPB Q8H [facility] Rx#: [id number] Sodium Chloride 0.9% 1, 240 220 160 000 ml @ 20 mls/hr IV . Q24H [facility] Rx#:[id number] Intake, IV Titration 568.419 425.758 293.790 Amount Cisatracurium 200 mg In 200 Sodium Chloride 0.9% 180 ml @ 1 MCG/KG/MIN 7.893 mls/hr IV .Q24H [facility] Rx#: [id number] Heparin Sod,Pork in 0.45% 118.419 NaCl 25,000 unit In 0.45 % NaCl 1 250ml.bag @ 17. 485 UNITS/KG/HR 23 mls/hr IV .[id number] [facility] Rx#: [id number] Levofloxacin 250Mg-D5w 50 Pmx 250 mg In Dextrose/ Water 1 50ml.bag @ 50 mls /hr IVPB Q24H [facility] Rx#: [id number] fentaNYL (PF). 2,500 mcg 250 3.289 In Sodium Chloride 0.9% 200 ml @ 0.5 MCG/KG/HR 6. 577 mls/hr IV .Q24H [facility] Rx#:[id number] propofoL 1,000 mg In 200 175.758 290.501 Empty Bag 1 bag @ Titrate IV .Q0M [facility] Rx#: [id number] Output: Urine 2625 1501 1475 Estimated Blood Loss 5 Other: Voiding Method Indwelling Catheter Indwelling Catheter Indwelling Catheter ABP, PAP, CO, CI - Last Documented Arterial Blood Pressure 139/74 - Labs CBC & Chem 7: 08/15/21 04:05 08/15/21 04:05 Labs: Abnormal Lab Results - Last 24 Hours (Table) 08/14/21 08/15/21 08/15/21 Range/Units 20:15 04:05 04:05 WBC 15.6 H (3.8-10.6) k/uL RBC 2.61 L (4.30-5.90) m/uL Hgb 7.4 L (13.0-17.5) gm/dL Hct 23.7 L (39.0-53.0) % RDW 17.2 H (11.5-15.5) % Neutrophils # (Manual) 12.90 H (1.3-7.7) k/uL Metamyelocytes # (Man) 0.47 H (0) k/uL Myelocytes # (Manual) 0.16 H (0) k/uL APTT 20.9 L (22.0-30.0) sec D-Dimer 3.76 H (<0.60) mg/L FEU ABG pCO2 (35-45) mmHg ABG pO2 (83-108) mmHg ABG HCO3 (21-25) mmol/L ABG Total CO2 (19-24) mmol/L ABG O2 Saturation (94-97) % BUN (9-20) mg/dL Creatinine (0.66-1.25) mg/dL POC Glucose (mg/dL) 106 H (75-99) mg/dL Ferritin (22.0-322.0) ng/mL ALT (4-49) U/L Lactate Dehydrogenase (313-618) U/L C-Reactive Protein (<1.0) mg/dL Total Protein (6.3-8.2) g/dL Albumin (3.5-5.0) g/dL 08/15/21 08/15/21 08/15/21 Range/Units 04:05 04:06 05:24 WBC (3.8-10.6) k/uL RBC (4.30-5.90) m/uL Hgb (13.0-17.5) gm/dL Hct (39.0-53.0) % RDW (11.5-15.5) % Neutrophils # (Manual) (1.3-7.7) k/uL Metamyelocytes # (Man) (0) k/uL Myelocytes # (Manual) (0) k/uL APTT (22.0-30.0) sec D-Dimer (<0.60) mg/L FEU ABG pCO2 47 H (35-45) mmHg ABG pO2 70 L (83-108) mmHg ABG HCO3 29 H (21-25) mmol/L ABG Total CO2 30 H (19-24) mmol/L ABG O2 Saturation 93.3 L (94-97) % BUN 49 H (9-20) mg/dL Creatinine 1.59 H (0.66-1.25) mg/dL POC Glucose (mg/dL) 102 H (75-99) mg/dL Ferritin 1190.0 H (22.0-322.0) ng/mL ALT 125 H (4-49) U/L Lactate Dehydrogenase 942 H (313-618) U/L C-Reactive Protein 3.1 H (<1.0) mg/dL Total Protein 5.7 L (6.3-8.2) g/dL Albumin 2.8 L (3.5-5.0) g/dL 08/15/21 08/15/21 Range/Units 12:45 14:12 WBC (3.8-10.6) k/uL RBC (4.30-5.90) m/uL Hgb (13.0-17.5) gm/dL Hct (39.0-53.0) % RDW (11.5-15.5) % Neutrophils # (Manual) (1.3-7.7) k/uL Metamyelocytes # (Man) (0) k/uL Myelocytes # (Manual) (0) k/uL APTT 33.4 H (22.0-30.0) sec D-Dimer (<0.60) mg/L FEU ABG pCO2 (35-45) mmHg ABG pO2 (83-108) mmHg ABG HCO3 (21-25) mmol/L ABG Total CO2 (19-24) mmol/L ABG O2 Saturation (94-97) % BUN (9-20) mg/dL Creatinine (0.66-1.25) mg/dL POC Glucose (mg/dL) 102 H (75-99) mg/dL Ferritin (22.0-322.0) ng/mL ALT (4-49) U/L Lactate Dehydrogenase (313-618) U/L C-Reactive Protein (<1.0) mg/dL Total Protein (6.3-8.2) g/dL Albumin (3.5-5.0) g/dL
[2021-08-15] MEDS: CISATRACURIUM 200 MG in SODIUM CHLORIDE 0.9% 180 ML IV SCH (15:49)
[2021-08-15 17:10] LABS: Glucose,Whole Blood 112 mg/dL (75-99)
[2021-08-16] MEDS: INSULIN ASPART (NovoLOG) 100 UNIT/ML VIAL SQ SCH ×4 (00:07→20:09)
[2021-08-16] MEDS: fentaNYL (PF). 2,500 MCG in SODIUM CHLORIDE 0.9% 200 ML IV SCH ×5 (00:07→20:12)
[2021-08-16 00:19] LABS: Glucose,Whole Blood 99 mg/dL (75-99)
[2021-08-16] MEDS: PIPERACILLIN-TAZOBACTAM 3.375 GM in SODIUM CHLORIDE 0.9% 100 ML IVPB SCH ×4 (03:59→21:53)
[2021-08-16] MEDS: HEPARIN SOD,PORK IN 0.45% NACL 25,000 UNIT in 0.45% NACL 1 250ML.BAG IV SCH ×2 (04:00→14:38)
[2021-08-16] MEDS: ARTIFICIAL TEARS-HYPROMELLOSE DROPS 15 ML BTL BOTH EYES SCH ×5 (04:27→19:50)
[2021-08-16] MEDS: CISATRACURIUM 200 MG in SODIUM CHLORIDE 0.9% 180 ML IV SCH ×2 (05:34→19:30)
[2021-08-16 05:39] LABS: ABG Base Excess 2.3 mmol/L; ABG HCO3 28 mmol/L (21-25); ABG Oxygen Saturation 92.3 % (94-97); ABG PCO2 52 mmHg (35-45); ABG PH 7.34 (7.35-7.45); ABG PO2 70 mmHg (83-108); ABG TCO2 30 mmol/L (19-24); Allen Test Performed? Yes
[2021-08-16 05:43] LABS: Anisocytosis Slight; Basophils # (A) 0.1 k/uL (0-0.2); Basophils % (A) 1 %; Eosinophils # (A) 0.2 k/uL (0-0.7); Eosinophils % (A) 1 %; HCT 23.9 % (39.0-53.0); HGB 7.5 gm/dL (13.0-17.5); Hypochromasia Moderate; Lymphocytes # (A) 1.9 k/uL (1.0-4.8); Lymphocytes % (A) 12 %; MCH 28.5 pg (25.0-35.0); MCHC 31.4 g/dL (31.0-37.0); MCV 90.6 fL (80.0-100.0); Macrocytosis Slight; Mean Platelet Volume 8.8; Monocytes # (A) 0.5 k/uL (0-1.0); Monocytes % (A) 3 %; Neutrophils % (A) 82 %; Platelet Count 429 k/uL (150-450); RBC 2.63 m/uL (4.30-5.90); RDW 19.3 % (11.5-15.5); WBC 15.7 k/uL (3.8-10.6)
[2021-08-16 05:44] LABS: Partial Thromboplastin Time 48.7 sec (22.0-30.0)
[2021-08-16 05:48] LABS: Albumin 2.8 g/dL (3.5-5.0); C Reactive Protein 3.8 mg/dL (<1.0); Calcium 8.9 mg/dL (8.4-10.2); Potassium 4.7 mmol/L (3.5-5.1); Total Bilirubin 0.7 mg/dL (0.2-1.3); Total Protein 5.6 g/dL (6.3-8.2)
--- NOTE | 2021-08-16 06:09 | XR ---
EXAMINATION TYPE: XR chest 1V portable DATE OF EXAM: 08/16/2021 CLINICAL HISTORY: Difficulty breathing progress study. TECHNIQUE: Single AP portable semiupright view of the chest is obtained. COMPARISON: Chest x-ray from one day earlier and older studies. FINDINGS: Stable tracheostomy tube. Stable left-sided PICC line. New orogastric tube projects below diaphragm. Bilateral multifocal and confluent opacities greatest in the lower lungs are redemonstrated. Cardiac silhouette size is stable and upper limits of normal. Osseous structures are intact. IMPRESSION: Bilateral multifocal and confluent opacities greatest in the lower lungs consistent with covid-19 infection redemonstrated. No significant change from one day earlier.
[2021-08-16 06:13] LABS: Glucose,Whole Blood 70 mg/dL (75-99)
[2021-08-16] MEDS: CHLORHEXIDINE GLUCONATE 15 ML CUP MUCOUS MEM SCH ×2 (08:27→21:31)
[2021-08-16] MEDS: PANTOPRAZOLE 40 MG/10 ML VIAL IVP SCH ×2 (08:27→19:50)
[2021-08-16] MEDS: LEVOFLOXACIN 250MG-D5W PMX 250 MG in DEXTROSE/WATER 1 50ML.BAG IVPB SCH (08:27)
[2021-08-16] MEDS: CHOLECALCIFEROL 25 MCG (1000 IU) TABLET PO SCH (08:28)
[2021-08-16] MEDS: ZINC SULFATE 220 MG CAP PO SCH (08:28)
[2021-08-16] MEDS: METOPROLOL TARTRATE 25 MG TAB PO SCH ×2 (08:28→19:52)
[2021-08-16] MEDS: ASCORBIC ACID 500 MG TAB PO SCH (08:28)
[2021-08-16] MEDS: amLODIPine 5 MG TAB PO SCH ×2 (08:28→12:36)
[2021-08-16] MEDS: DEXAMETHASONE SOD PHOSPHATE 10 MG/ML 1 ML VIAL IV SCH ×2 (08:29→19:50)
[2021-08-16] MEDS: CLEVIDIPINE BUTYRATE 25 MG in EMPTY BAG 1 BAG IV SCH (08:29)
--- NOTE | 2021-08-16 08:42 | P.PN ---
Subjective Progress Note Date: 08/16/21 Principal diagnosis: Coronavirus associated pneumonia. Acute hypoxic respiratory failure secondary to COVID-19 pneumonia On today's evaluation patient is seen in follow-up on 08/05/2021, he is currently on BiPAP support with pressure of 14/8, and the pulse ox is 87-93%, patient does alternate with Airvo at 60 L and 90% FiO2, and at bedtime and as needed for periods of time during the day he does go on BiPAP. He is awake and alert, he sitting up on the edge of the bed, dyspneic with exertion, but no acute distress, he remains on Bicitra neb, he is on IV Decadron, Lovenox 60 mg twice daily, he is on 0.9 normal saline at a rate of 50 ML per hour, he is on multivitamins, his latest chest x-ray from 08/04/2021 showed improved inspiration, improved right basilar focal consolidation, and persistent bilateral diffuse reticulonodular opacities in the lower lungs consistent with known COVID-19 infection. Today's labs have been reviewed, his white blood cell count is 19.1, hemoglobin is 13.1, d-dimer is 14.3, sodium is 133, the rest of electrolytes and renal profile were fairly unremarkable, his inflammatory markers are relatively stable and LDH is 2935, and CRP is 18.2, pro calcitonin level is slightly improved and is down to 0.40. His blood and sputum cultures have shown no growth. He did have a fever with a temp of 101.7F. Currently afebrile. No complaints of chest discomfort. No hemoptysis, his lower extremity Dopplers were negative for DVT. On 08/06/2021 patient seen in follow-up on medical surgical floor. Patient still requiring high flow oxygen per Airvo, and he is requiring BiPAP support most of time with pressures of 14/88 and FiO2 of 100% and his pulse ox is 87- 90%, he continues to have fevers, with a T-max 101.7F, overnight his fever pa ttern has improved and he still having some low-grade fevers. He is short of breath with any exertion. He continues on Decadron 6 mg daily, Baricitinib, and Lovenox at intermediate dosing at 0.5 mg/kg twice daily which is above 60 mg twice daily for this patient's weight. His d-dimer is down to 8.58 on today's labs, improved although still significantly elevated, lower extremity Dopplers were negative for any evidence of DVT. There is concern for superimposed bacterial infection, especially in view of fever, and elevated white blood cell count. Today's white count is 22.1, hemoglobin is 13, sodium is 131, rest of electrolytes were within normal limits, B1 is 27 creatinine 0.89, pro Level Was Borderline at 0.40, Also Suggestive of a Possible Super Imposed Bacterial Infection. Patient was transferred yesterday to the ICU, and around 2 AM this morning, I was notified about this patient is not doing well. Patient was noted to be desaturating, anxious, tachycardic, and patient did not improve much with Precedex. Hence I recommended intubating the patient. Patient was intubated by [employer], trace on mechanical ventilation, and he is now on assist control rate of 38, tidal volume of 375 100% FiO2 and PEEP is 18. His ABG showed a pO2 of 99 pCO2 57 pH of 7.27. Patient is on multiple drips including propofol at 50 fentanyl at 0.25 mcg/kg/h, Nimbex at 1 and he is on IV fluid 0.9 normal saline at 50 mL per hour. Patient was actually intubated around 2:45 AM this morning. Reviewed his chest x-ray, clearly showed bilateral infiltrates, consistent with COVID-19 pneumonia. His endotracheal tube is in the proper position. And his orogastric tube is also in the proper position. After reviewing his ABG, I cut down his FiO2 to 90%, may consider going higher on the PEEP, may also consider placing the patient in prone position. I have consulted interventional radiology for a PICC line placement, and I went ahead and placed a right radial arterial line. Patient will be off heparin for a couple of hours prior to the PICC line placement. I reviewed his CT angiogram of the chest from yesterday, the minor evidence of pulmonary embolism is not clinically impressive, however nonetheless the patient will need to be heparinized noticing that he has elevated d-dimer and the fact that he has COVID-19 pneumonia which is a major provoking factor for thrombus embolic disease. WBC count today is 19 hemoglobin is 11.9 his PTT was therapeutic initially at 50.1, and this morning it is 37.9, patient received a heparin bolus. Electrolytes are normal potassium is 5.1 BUN is 28 creatinine is 1.03. Medications espinoza, patient is on albuterol, amlodipine, vitamin C, Peridex, vitamin D, Nimbex, Decadron 6 mg IV push daily, fentanyl, heparin, hydralazine, metoprolol, lisinopril, Protonix, Zosyn, and zinc. Used to be on baricitimib, however because of his leukocytosis and elevat ed pro calcitonin, this was discontinued, and we started the patient empirically on antibiotics. Blood cultures and sputum cultures so far are negative. And they seem to be nondiagnostic so far. At one point, the patient was spiking fevers, his T-max yesterday was 99.1. The patient is seen today 08/08/2021 and follow-up in the intensive care unit. He remains intubated, sedated, paralyzed and on the mechanical ventilator. Current settings are assist control at a rate of 38, tidal volume 375, FiO2 100% and a PEEP of 18. Peak pressures of 35, plateau of 33. Morning blood gases revealed a PaO2 of 205, pCO2 56, pH 7.22. He remains in sinus tachycardia currently at 104. He is currently on propofol 50 mcg/kg/m, fentanyl at 0.25 mcg/kg per hour, Nimbex at 1 mcg/kg/m, heparin drip per weight-based protocol. 0.9 normal saline at 125 ML's per hour. Staff did attempt to prone the patient yesterday however he had a significant cuff leak, significant desaturations and had to be placed back in supine position almost immediately. Chest x-ray reveals continued diffuse fine interstitial infiltrates, left greater than right with possibly some slight improvement in aeration. Blood cultures reveal no growth. Sputum cultures reveal no growth. White count 15.1. Hemoglobin 9.8. Platelets 230. Lymphocytes 0.8. Sodium 133. Potassium 5.6. Bicarb 21. Creatinine 2.88. Blood glucose 118. AST 39. ALT 61. He is continued on Decadron, Zosyn, vitamin supplements. He is currently afebrile. Not requiring pressors. He is being nourished with vital AF at 20 ML's per hour. Reevaluated today on 08/09/2021, patient remains in the ICU, intubated and mechanically ventilated, sedated and paralyzed. Ventilator settings are assist control rate of 38 tidal volume 375 FiO2 65% PEEP increased to 20 this morning. ABG earlier on a PEEP of 18 showed a pO2 of 66 pCO2 of 56 pH of 7.35. Patient is on Nimbex at 2 mcg/kg/m fentanyl 0.5 mcg/kg/h propofol at 55 mcg/kg/m still on a bicarb drip at 75 mL per hour. Patient is on enteral feeding using vital AF 28/28. Patient remains on Decadron at 6 mg IV push twice a day. Remains on heparin. Remains on the COVID-19 cocktail. Remains on albuterol, remains on GI prophylaxis. Insulin as per protocol, metoprolol Pavithra and empirically on Zosyn for his elevated pro calcitonin level. Chest x-ray continues to show bilateral interstitial infiltrates consistent with COVID-19 pneumonia not much of a change noted on the chest x-ray today. Labs, showed relatively normal CBC. PTT is 41.6, patient is on heparin, electrolytes are normal renal profile showed slight improvement to BUN is 53 creatinine 2.22. Repeat pro calcitonin yesterday was 5.5, last LDH was 2931, and C-reactive protein is elevated at 31.6 Reevaluated today on 08/10/2021, remains in the ICU intubated and mechanically ventilated, sedated and paralyzed. Thank you the settings are assist control rate 38 tidal volumes at 375 FiO2 50% PEEP of 20, peak airway pressure 39 left total pressure is 37 ABG showed a pO2 of 65 pCO2 52 pH of 7.35. Remains on multiple drips including Nimbex at 2 mcg/kg/m, propofol at 70 micrograms per kilo per minute fentanyl at 1.5 mcg/kg/m and cutting down to 1 mcg/kg/m. Remains on enteral feeding with vital AF 28/28. Remains on Decadron 6 mg twice a day remains on Zosyn and his last procalcitonin was 5.5 Chest x-ray continues to show evidence of bilateral infiltrates left seems to be more involved than the right. Labs today showed d-dimer of 1.78 down from 8.58, patient remains on heparin. CT of the chest showed nonocclusive thromboembolic disease. LDH is down to 1114 from 2931 and C-reactive protein is elevated at 19.9 but much better compared to a few days ago where it was about 32. WBC count is 11.8 hemoglobin is 8.4. Platelets are 317,000 Patient was reevaluated today on 08/11/21, patient remains in the ICU, intubated and mechanically ventilated. Patient is sedated and paralyzed, he is on Nimbex at 1.5 mcg/kg/m, fentanyl at 1 mcg/kg/h, propofol is 65 mcg/kg/h, he is also on heparin drip and he is on IV fluid at 65 mL per hour in the form of 0.9 normal saline. Patient is receiving enteral feeding vital AF Ventilator settings include assist control rate of 38 tidal volume 375 FiO2 60% PEEP of 20, ABG showed a pO2 of 58 pCO2 of 55 pH of 7.31, and this was on 55%, hence the FiO2 was increased to 60%. Patient desaturates even with a PEEP down to 18, hence I'm keeping him on a PEEP of 24 now. Chest x-ray shows bilateral infiltrates, however the left lower lobe seems to be more involved than the rest of the lungs, more infiltrate noted in the left lower lobe area. Patient remains on Zosyn, he is off baricitinib, mostly because of his elevated pro calcitonin level, and he was placed on antibiotics empirically. And will add Levaquin empirically in addition to Zosyn. Cultures so far are nondiagnostic. Patient remains on Decadron 6 mg twice a day. And he is also on the COVID-19 cocktail. Patient remains on the COVID-19 cocktail, and he remains on GI and DVT prophylaxis Progress note dated 08/12/2021. 31-year-old black male, again seen in the intensive care unit, room 262. The patient was admitted on July 31 with coronavirus associated pneumonia. He was moved to the intensive care unit on August 06 and intubated on the same day for worsening respiratory failure with hypoxemia. Currently, the patient remains on the mechanical ventilator. He is on the volume assist control mode, rate 38, tidal volume 375, FiO2 60%, to be decreased to 50%, and PEEP of 20. Arterial blood gases show pO2 of 70, pCO2 of 49, and a pH is 7.36. The patient is receiving saline at 50 mL an hour, propofol 60 mcg/kg/m, Nimbex at 2 mcg/kg/m with train of four monitoring, heparin via weightbase protocol, fentanyl at 2 mcg/kg/h, and vital AF at goal, which is 28 mL an hour. White count 15, hemoglobin 7.8, hematocrit 26.1, and platelet count 433,000. D-dimer was 1.68. Sodium 140, potassium 5.3, chlorides 111, CO2 25, anion gap 4, BUN 60, and creatinine 1.73. LDH is 1160. C-reactive protein is 5.8. Chest x-ray shows diffuse bilateral infiltrates. This is consistent with his known diagnosis of coronavirus associated pneumonia. Endotracheal tube is about 3-1/2 cm above the tracheal delmer. Progress note dated 08/13/2021. 31-year-old black male, again seen in the intensive care unit, room 262. The patient was admitted to the hospital on July 31 with coronavirus associated pneumonia. He was moved to the intensive care unit on August 06, and intubated on the same day for worsening hypoxemic respiratory failure. The patient remains on mechanical ventilator. His ventilator settings include the volume assist control, rate 38, tidal volume 375, FiO2 currently 75%, with a PEEP of 20. He had blood gases done early in the morning showing a pO2 of 49, pCO2 of 62, and a pH is 7.26. That was when he was on 50% and when he was getting a bath. Subsequently, we increase his FiO2 to 100%, and he is now been weaned down to 75%. I did asked the respiratory therapist to repeat an ABG. The patient's currently receiving propofol at 75 mcg/kg/m, Nimbex at 2 mcg/kg/m, fentanyl at 3 mcg/kg/h, and heparin via weightbase protocol. He is getting saline at KVO, and tube feedings with Nepro at 14 mL an hour, which is goal. He remains on Zosyn and Levaquin. He is apparently scheduled for tracheostomy and PEG tube placement on Thursday. White count is 30, hemoglobin 9.5, hematocrit 31.7, platelet count 634,000. D-dimer is 2.68. Sodium 140, potassium 5.6, chlorides 108, CO2 27, anion gap 5, BUN 51, and creatinine 1.61. LDH is 1730. C-reactive protein is 4.1. Albumin is 3.1. Chest x-ray shows diffuse bilateral infiltrates, essentially unchanged. Progress note dated 08/14/2021. 31-year-old black male, again seen in the intensive care unit, room 262. The patient was admitted to the hospital on July 31 with coronavirus associated pneumonia. He was moved to the intensive care unit on August 06, and intubated on the same day for worsening oxygenation. The patient remains on the mechanical ventilator. Today, the patient will have a tracheostomy tube placed as well as a PEG tube placed. Current ventilator settings include the volume assist control mode, rate 38, tidal volume 375, FiO2 55%, and PEEP of 20. Blood gases on the same settings except for 40% FiO2, show a PaO2 of 49, pCO2 of 51, and a pH 7.37. When I was alerted about these blood gases, I increased the FiO2 from 40% up to 55%. Currently, saturations are in the low 90s. The patient's on Nimbex at 2 g kilogram per minute, propofol at 65 mcg/kg/m, 0.9 saline at 20 mL an hour, fentanyl at 2 mcg/kg/h, heparin via weightbase protocol, and tube feedings are currently on hold for anticipated tracheostomy and PEG tube today. White count 17.5, hemoglobin 7.7, hematocrit 25.1, and platelet count 462,000. Sodium 139, potassium 5.2, chlorides 108, CO2 24, anion gap 7, BUN 51, and crea tinine 1.77. Chest x-ray again shows diffuse bilateral infiltrates, which are essentially unchanged. Progress note dated 08/15/2021. 31-year-old black male, again seen in the ICU, room 262. The patient was admitted to the hospital on July 31 with coronavirus associated pneumonia. Because of worsening hypoxemia, he was moved to the intensive care unit on August 06. It's intubated on the same day. He remains on mechanical ventilator. Yesterday, he had a tracheostomy performed. A PEG tube was apparently attempted, but not able to be performed. He remains on the volume assist control mode with, with a rate of 38, tidal volume 375, FiO2 55%, any. Arterial blood gases show pO2 70, pCO2 37, and a pH is 7.4. The patient's currently on propofol at 75 mcg/kg/m, Nimbex at 2 mcg/kg/m, fentanyl at 2.5 mcg/kg/h, saline at 20 mL an hour, and he will be restarted on IV heparin. Unfortunately, there was no NG tube. It was removed during the attempted procedure yesterday, and the nurses have been having a hard time replacing it. We will try again today. White count 15.6, hemoglobin 7.4, hematocrit 23.7, and platelet count 404,000. PTT was 20.9. D-dimer 3.76. Sodium 137, potassium 4.9, chlorides 105, CO2 25, anion gap 7, BUN 49, and creatinine 1.59. Chest x- ray continues to show diffuse bilateral infiltrates, may be a bit improved. Progress note dated 08/16/2021. 31 yo black male, again seen in the intensive care unit, room 262. The patient was admitted to the hospital on July 31, with coronavirus associated pneumonia. Because of worsening hypoxemia, he was moved to the intensive care unit on August 06, and intubated on the same day. He remains on the mechanical ventilator. On August 14, the patient underwent tracheostomy. The PEG tube was attempted, but was not able to be done. Ventilator settings include the volume assist control mode, rate 38, tidal volume 375, FiO2 55%, and PEEP of 20. Blood gases show a PaO2 of 70, pCO2 of 52, and a pH of 7.34. The patient is currently on fentanyl, at 4 mcg/kg/h, propofol at 75 mcg/kg/m, Nimbex at 2 mcg/ kg/m, Nepro, at 14 mL an hour, which is goal, and saline at KVO. White count 15.7, hemoglobin 7.5, hematocrit 23.9, platelet count 429,000. D-dimer was 5.08. Sodium 137, potassium 4.7, chlorides 107, CO2 24, anion gap is 6, BUN 41, creatinine 1.30. Albumin is 2.8. C-reactive protein is 3.8. Chest x-ray shows diffuse bilateral infiltrates. No change in chest x-ray compared to prior x- rays. Objective - Vital Signs Vital signs: Vital Signs Temp 98.1 F 08/16/21 00:00 Pulse 91 08/16/21 07:00 Resp 38 H 08/16/21 07:00 BP 96/54 08/15/21 23:07 Pulse Ox 93 L 08/16/21 07:00 Intake & Output 08/15/21 08/16/21 08/16/21 18:59 06:59 18:59 Intake Total 2532.584 3880.863 34 Output Total 2165 1325 75 Balance -659.530 2282.863 -41 Intake: IV 490 440 20 Levofloxacin 250Mg-D5w 50 Pmx 250 mg In Dextrose/ Water 1 50ml.bag @ 50 mls /hr IVPB Q24H [facility] Rx#: [id number] Piperacillin-Tazobactam 3 200 200 .375 gm In Sodium Chloride 0.9% 100 ml @ 25 mls/hr IVPB Q8H [facility] Rx#: [id number] Sodium Chloride 0.9% 1, 240 240 20 000 ml @ 20 mls/hr IV . Q24H [facility] Rx#:[id number] Intake, IV Titration 608.677 2153.863 Amount Cisatracurium 200 mg In 200 Sodium Chloride 0.9% 180 ml @ 1 MCG/KG/MIN 7.893 mls/hr IV .Q24H [facility] Rx#: [id number] Heparin Sod,Pork in 0.45% 199.994 250.000 NaCl 25,000 unit In 0.45 % NaCl 1 250ml.bag @ 18 UNITS/KG/HR 22.392 mls/hr IV .[id number] [facility] Rx#: [id number] fentaNYL (PF). 2,500 mcg 250.000 500 In Sodium Chloride 0.9% 200 ml @ 0.5 MCG/KG/HR 6. 577 mls/hr IV .Q24H [facility] Rx#:[id number] propofoL 1,000 mg In 390.501 696.863 Empty Bag 1 bag @ Titrate IV .Q0M [facility] Rx#: [id number] Tube Feeding 154 14 Other 90 Output: Urine 2165 1325 75 Other: Voiding Method Indwelling Catheter Indwelling Catheter ABP, PAP, CO, CI - Last Documented Arterial Blood Pressure 136/69 - Exam No acute distress, sedated and paralyzed, with a midline tracheostomy tube. HEENT examination is grossly unremarkable. Neck supple. Full range of motion. No adenopathy thyromegaly or neck vein distention. Cardiovascular examination reveals regular rhythm rate. S1-S2 normal. No S3 or S4. No discernible murmur noted. Heart sounds are distant. Heart rate 91 bpm. Lungs reveal coarse bilateral rhonchi. Breath sounds equal bilaterally. No wheezes or crackles. Saturations are 93% on 55% FiO2 and a PEEP of 20. Abdomen soft bowel sounds are heard. No masses or tenderness. Extremities are intact. No cyanosis clubbing or edema. Skin is without rash or lesion. Neurologic examination cannot be adequately assessed at this time given the level of sedation and paralysis. - Labs CBC & Chem 7: 08/16/21 04:19 08/16/21 04:19 Labs: Abnormal Lab Results - Last 24 Hours (Table) 08/15/21 08/15/21 08/15/21 Range/Units 04:05 12:45 14:12 WBC (3.8-10.6) k/uL RBC (4.30-5.90) m/uL Hgb (13.0-17.5) gm/dL Hct (39.0-53.0) % RDW (11.5-15.5) % Neutrophils # (1.3-7.7) k/uL APTT 33.4 H (22.0-30.0) sec D-Dimer (<0.60) mg/L FEU ABG pH (7.35-7.45) ABG pCO2 (35-45) mmHg ABG pO2 (83-108) mmHg ABG HCO3 (21-25) mmol/L ABG Total CO2 (19-24) mmol/L ABG O2 Saturation (94-97) % BUN (9-20) mg/dL Creatinine (0.66-1.25) mg/dL POC Glucose (mg/dL) 102 H (75-99) mg/dL Ferritin 1190.0 H (22.0-322.0) ng/mL ALT (4-49) U/L Creatine Kinase (55-170) U/L C-Reactive Protein (<1.0) mg/dL Total Protein (6.3-8.2) g/dL Albumin (3.5-5.0) g/dL 08/15/21 08/15/21 08/16/21 Range/Units 17:08 22:00 04:19 WBC 15.7 H (3.8-10.6) k/uL RBC 2.63 L (4.30-5.90) m/uL Hgb 7.5 L (13.0-17.5) gm/dL Hct 23.9 L (39.0-53.0) % RDW 19.3 H (11.5-15.5) % Neutrophils # 13.0 H (1.3-7.7) k/uL APTT 69.6 H (22.0-30.0) sec D-Dimer (<0.60) mg/L FEU ABG pH (7.35-7.45) ABG pCO2 (35-45) mmHg ABG pO2 (83-108) mmHg ABG HCO3 (21-25) mmol/L ABG Total CO2 (19-24) mmol/L ABG O2 Saturation (94-97) % BUN (9-20) mg/dL Creatinine (0.66-1.25) mg/dL POC Glucose (mg/dL) 112 H (75-99) mg/dL Ferritin (22.0-322.0) ng/mL ALT (4-49) U/L Creatine Kinase (55-170) U/L C-Reactive Protein (<1.0) mg/dL Total Protein (6.3-8.2) g/dL Albumin (3.5-5.0) g/dL 08/16/21 08/16/21 08/16/21 Range/Units 04:19 04:19 05:35 WBC (3.8-10.6) k/uL RBC (4.30-5.90) m/uL Hgb (13.0-17.5) gm/dL Hct (39.0-53.0) % RDW (11.5-15.5) % Neutrophils # (1.3-7.7) k/uL APTT 48.7 H (22.0-30.0) sec D-Dimer 5.08 H (<0.60) mg/L FEU ABG pH 7.34 L (7.35-7.45) ABG pCO2 52 H (35-45) mmHg ABG pO2 70 L (83-108) mmHg ABG HCO3 28 H (21-25) mmol/L ABG Total CO2 30 H (19-24) mmol/L ABG O2 Saturation 92.3 L (94-97) % BUN 41 H (9-20) mg/dL Creatinine 1.30 H (0.66-1.25) mg/dL POC Glucose (mg/dL) (75-99) mg/dL Ferritin (22.0-322.0) ng/mL ALT 104 H (4-49) U/L Creatine Kinase 50 L (55-170) U/L C-Reactive Protein 3.8 H (<1.0) mg/dL Total Protein 5.6 L (6.3-8.2) g/dL Albumin 2.8 L (3.5-5.0) g/dL 08/16/21 Range/Units 06:12 WBC (3.8-10.6) k/uL RBC (4.30-5.90) m/uL Hgb (13.0-17.5) gm/dL Hct (39.0-53.0) % RDW (11.5-15.5) % Neutrophils # (1.3-7.7) k/uL APTT (22.0-30.0) sec D-Dimer (<0.60) mg/L FEU ABG pH (7.35-7.45) ABG pCO2 (35-45) mmHg ABG pO2 (83-108) mmHg ABG HCO3 (21-25) mmol/L ABG Total CO2 (19-24) mmol/L ABG O2 Saturation (94-97) % BUN (9-20) mg/dL Creatinine (0.66-1.25) mg/dL POC Glucose (mg/dL) 70 L (75-99) mg/dL Ferritin (22.0-322.0) ng/mL ALT (4-49) U/L Creatine Kinase (55-170) U/L C-Reactive Protein (<1.0) mg/dL Total Protein (6.3-8.2) g/dL Albumin (3.5-5.0) g/dL Assessment and Plan Assessment: Acute hypoxemic respiratory failure secondary to coronavirus associated pneumonia, status post intubation and mechanical ventilation on August 06. Status post tracheostomy tube insertion, 08/14/2021. Unfortunately, PEG tube could not be placed on that same day. Acute respiratory distress syndrome. Elevated inflammatory marker secondary to coronavirus infection. Acute/subacute pulmonary embolism. Elevated liver enzymes secondary to coronavirus infection. Morbid obesity. Plan: Plan dated 08/12/2021. We'll attempt to get the patient off of the paralytic if possible. I gave instructions to the nurse. In addition, we will continue with the propofol and the fentanyl for now. We'll reduce the FiO2 down from 60%, down to 50%. I told the nurses and respiratory therapist except saturations in the mid 80s or higher. The patient will continue on heparin for now. Additional recommendations and suggestions are forthcoming. Prognosis is guarded. We will continue to follow this patient, and make recommendations where appropriate. Plan dated 08/13/2021. We're unable to get the patient off the paralytic. During his bath, his saturations dropped and his blood pressure went up. The nurses contacted me. I ordered the FiO2 to be increased to 100%, and also use labetalol IV for blood pressure control. At that point, he was on maximal dose Cleveprex. He is scheduled for a tracheostomy and PEG tube tomorrow. I think that's espinoza. We will repeat a blood gas and a few minutes. His FiO2 is been weaned down to 75%. Additional recommendations and suggestions are forthcoming. His medications are reviewed. He remains on Zosyn and Levaquin. Microbiology is as far all negative. Plan dated 08/14/2021. The patient's going to have a tracheostomy and PEG tube placed today by surgery. I think that will give him the best chance of full recovery. The patient's FiO2 was increased from 40%, up to 55%, when I was alerted about the morning blood gases. Patient remains on fentanyl, propofol, and Nimbex. We will resume tube feedings after 24 hours post placement of the feeding tube. Labs, x-rays, and medications all reviewed. Everything is appropriate at this time. The patient remains on antibiotics in the form of Zosyn and Levaquin. Microbiology thus far as all been negative. We will continue to follow make recommendations where appropriate. Prognosis is guarded. Plan dated 08/15/2021. The patient did have his tracheostomy tube placed on August 14. Unfortunately, the PEG tube was not able to be place. The patient will be started back on heparin. The nurses will attempt to place an NG tube. The patient remains on propofol, Nimbex, and fentanyl. We will restart tube feeds once the NG tube was replaced. Overall prognosis remains very guarded. Labs, x-rays, and medications are all reviewed. Everything does seem to be appropriate. We will continue to follow this patient, and make recommendations where appropriate. The patient remains on Zosyn and Levaquin, and all microbiologic studies as far have been negative. Plan dated 08/16/2021. The patient is doing about the same. The goal today would be to try to get him off the paralytic. The patient's labs, x-rays, and medications are all reviewed. Everything is appropriate. We will continue to follow closely and make every attempt the patient moving in the right direction and eventually off the ventilator. The patient remains on Zosyn and Levaquin. Microbiologic studies have been negative. Additional recommendations and suggestions are f orthcoming. We will continue to follow this patient and make recommendations where appropriate. Time with Patient: Greater than 30
[2021-08-16] MEDS: ALBUTEROL HFA INHALER INHALATION PRN ×3 (08:54→19:54)
--- NOTE | 2021-08-16 10:29 | P.PN ---
Subjective Patient is seen in follow-up for acute kidney injury. Renal function better. Nonoliguric. Status post tracheostomy on August 14. Receiving tube feeds. Blood pressure stable. Vital signs are stable. Tracheostomy noted. Exam discussed with the nurse. Objective - Vital Signs Vital signs: Vital Signs Temp 98.1 F 08/16/21 08:00 Pulse 71 08/16/21 10:00 Resp 38 H 08/16/21 10:00 BP 96/54 08/15/21 23:07 Pulse Ox 97 08/16/21 10:00 Intake & Output 08/15/21 08/16/21 08/16/21 18:59 06:59 18:59 Intake Total 4657.957 9217.863 462 Output Total 2165 1325 325 Balance -434.313 2424.863 137 Intake: IV 490 440 216 Levofloxacin 250Mg-D5w 50 50 Pmx 250 mg In Dextrose/ Water 1 50ml.bag @ 50 mls /hr IVPB Q24H [facility] Rx#: [id number] Piperacillin-Tazobactam 3 200 200 100 .375 gm In Sodium Chloride 0.9% 100 ml @ 25 mls/hr IVPB Q8H [facility] Rx#: [id number] Sodium Chloride 0.9% 1, 240 240 60 000 ml @ 20 mls/hr IV . Q24H [facility] Rx#:[id number] pressure bag .9 6 Intake, IV Titration 273.234 3706.863 100 Amount Cisatracurium 200 mg In 200 Sodium Chloride 0.9% 180 ml @ 1 MCG/KG/MIN 7.893 mls/hr IV .Q24H [facility] Rx#: [id number] Heparin Sod,Pork in 0.45% 199.994 250.000 NaCl 25,000 unit In 0.45 % NaCl 1 250ml.bag @ 18 UNITS/KG/HR 22.392 mls/hr IV .[id number] [facility] Rx#: [id number] fentaNYL (PF). 2,500 mcg 250.000 500 In Sodium Chloride 0.9% 200 ml @ 0.5 MCG/KG/HR 6. 577 mls/hr IV .Q24H [facility] Rx#:[id number] propofoL 1,000 mg In 390.501 696.863 100 Empty Bag 1 bag @ Titrate IV .Q0M [facility] Rx#: [id number] Tube Feeding 154 56 Other 90 90 Output: Urine 2165 1325 325 Other: Voiding Method Indwelling Catheter Indwelling Catheter ABP, PAP, CO, CI - Last Documented Arterial Blood Pressure 117/55 - Labs CBC & Chem 7: 08/16/21 04:19 08/16/21 04:19 Labs: Abnormal Lab Results - Last 24 Hours (Table) 08/15/21 08/15/21 08/15/21 Range/Units 04:05 12:45 14:12 WBC (3.8-10.6) k/uL RBC (4.30-5.90) m/uL Hgb (13.0-17.5) gm/dL Hct (39.0-53.0) % RDW (11.5-15.5) % Neutrophils # (1.3-7.7) k/uL APTT 33.4 H (22.0-30.0) sec D-Dimer (<0.60) mg/L FEU ABG pH (7.35-7.45) ABG pCO2 (35-45) mmHg ABG pO2 (83-108) mmHg ABG HCO3 (21-25) mmol/L ABG Total CO2 (19-24) mmol/L ABG O2 Saturation (94-97) % BUN (9-20) mg/dL Creatinine (0.66-1.25) mg/dL POC Glucose (mg/dL) 102 H (75-99) mg/dL Ferritin 1190.0 H (22.0-322.0) ng/mL ALT (4-49) U/L Creatine Kinase (55-170) U/L C-Reactive Protein (<1.0) mg/dL Total Protein (6.3-8.2) g/dL Albumin (3.5-5.0) g/dL 08/15/21 08/15/21 08/16/21 Range/Units 17:08 22:00 04:19 WBC 15.7 H (3.8-10.6) k/uL RBC 2.63 L (4.30-5.90) m/uL Hgb 7.5 L (13.0-17.5) gm/dL Hct 23.9 L (39.0-53.0) % RDW 19.3 H (11.5-15.5) % Neutrophils # 13.0 H (1.3-7.7) k/uL APTT 69.6 H (22.0-30.0) sec D-Dimer (<0.60) mg/L FEU ABG pH (7.35-7.45) ABG pCO2 (35-45) mmHg ABG pO2 (83-108) mmHg ABG HCO3 (21-25) mmol/L ABG Total CO2 (19-24) mmol/L ABG O2 Saturation (94-97) % BUN (9-20) mg/dL Creatinine (0.66-1.25) mg/dL POC Glucose (mg/dL) 112 H (75-99) mg/dL Ferritin (22.0-322.0) ng/mL ALT (4-49) U/L Creatine Kinase (55-170) U/L C-Reactive Protein (<1.0) mg/dL Total Protein (6.3-8.2) g/dL Albumin (3.5-5.0) g/dL 08/16/21 08/16/21 08/16/21 Range/Units 04:19 04:19 05:35 WBC (3.8-10.6) k/uL RBC (4.30-5.90) m/uL Hgb (13.0-17.5) gm/dL Hct (39.0-53.0) % RDW (11.5-15.5) % Neutrophils # (1.3-7.7) k/uL APTT 48.7 H (22.0-30.0) sec D-Dimer 5.08 H (<0.60) mg/L FEU ABG pH 7.34 L (7.35-7.45) ABG pCO2 52 H (35-45) mmHg ABG pO2 70 L (83-108) mmHg ABG HCO3 28 H (21-25) mmol/L ABG Total CO2 30 H (19-24) mmol/L ABG O2 Saturation 92.3 L (94-97) % BUN 41 H (9-20) mg/dL Creatinine 1.30 H (0.66-1.25) mg/dL POC Glucose (mg/dL) (75-99) mg/dL Ferritin (22.0-322.0) ng/mL ALT 104 H (4-49) U/L Creatine Kinase 50 L (55-170) U/L C-Reactive Protein 3.8 H (<1.0) mg/dL Total Protein 5.6 L (6.3-8.2) g/dL Albumin 2.8 L (3.5-5.0) g/dL 08/16/21 Range/Units 06:12 WBC (3.8-10.6) k/uL RBC (4.30-5.90) m/uL Hgb (13.0-17.5) gm/dL Hct (39.0-53.0) % RDW (11.5-15.5) % Neutrophils # (1.3-7.7) k/uL APTT (22.0-30.0) sec D-Dimer (<0.60) mg/L FEU ABG pH (7.35-7.45) ABG pCO2 (35-45) mmHg ABG pO2 (83-108) mmHg ABG HCO3 (21-25) mmol/L ABG Total CO2 (19-24) mmol/L ABG O2 Saturation (94-97) % BUN (9-20) mg/dL Creatinine (0.66-1.25) mg/dL POC Glucose (mg/dL) 70 L (75-99) mg/dL Ferritin (22.0-322.0) ng/mL ALT (4-49) U/L Creatine Kinase (55-170) U/L C-Reactive Protein (<1.0) mg/dL Total Protein (6.3-8.2) g/dL Albumin (3.5-5.0) g/dL Assessment and Plan Plan: Assessment: 1. Acute kidney injury secondary to ATN secondary to COVID-19 infection and contrast-induced acute kidney injury. Renal function improved. Creatinine 1.3 today. Baseline creatinine near 1. 2. Hyperkalemia secondary to acute kidney injury. No evidence of acidosis. Blood sugars stable. ?heparin induced. Improved. 3. Acute hypoxic respiratory failure secondary to covid-19 pneumonia and PE. Status post tracheostomy on August 14. 4. Right lung PE maintained on anticoagulation. 5. Benign hypertension. Stable. 6. Lower extremity edema. Improved with diuresis. Plan: Remains off IV fluids. Receiving tube feeds. Avoid nephrotoxins. Continue to monitor renal function and urine output.
[2021-08-16 12:06] LABS: Glucose,Whole Blood 86 mg/dL (75-99)
--- NOTE | 2021-08-16 16:16 | P.PN ---
Subjective Progress Note Date: 08/16/21 CHIEF COMPLAINT: COVID-19 pneumonia HISTORY OF PRESENT ILLNESS: Patient remains in the ICU on mechanical ventilation. He is status post tracheostomy placement. PEG tube was not placed due to nonvisualization of light reflex to the stomach during EGD. And currently receiving tube feedings through NG tube. Afebrile WBC 15.7 hemoglobin 7.5 PHYSICAL EXAM: VITAL SIGNS: Reviewed. GENERAL: Well-developed in no acute distress. HEENT: No sclera icterus. Extraocular movements grossly intact. Moist buccal mucosa. Head is atraumatic, normocephalic. Tracheostomy site clean dry and intact ABDOMEN: Soft. Nondistended. Nontender. NEUROLOGIC: Intubated and sedated ASSESSMENT: 1. Acute hypoxic respiratory failure due to COVID-19 pneumonia with prolonged mechanical intubation. Status post tracheostomy placement 2. Severe protein calorie malnutrition. PEG tube insertion aborted. Unable to visualize light reflex. PLAN: -Dr. Green will reassess for possible PEG tube placement in a couple of days -Continue ICU management -Continue supportive care Physician [employer] Teacher note has been reviewed by physician. Signing provider agrees with the documented findings, assessment, and plan of care. Objective - Vital Signs Vital signs: Vital Signs Temp 98.2 F 08/16/21 12:00 Pulse 84 08/16/21 14:00 Resp 38 H 08/16/21 14:00 BP 96/54 08/15/21 23:07 Pulse Ox 95 08/16/21 14:00 Intake & Output 08/15/21 08/16/21 08/16/21 18:59 06:59 18:59 Intake Total 0788.891 5934.863 1879.408 Output Total 2165 1325 1075 Balance -650.601 2862.863 804.408 Weight 124.4 kg Intake: IV 490 440 331 Levofloxacin 250Mg-D5w 50 50 Pmx 250 mg In Dextrose/ Water 1 50ml.bag @ 50 mls /hr IVPB Q24H [facility] Rx#: [id number] Piperacillin-Tazobactam 3 200 200 100 .375 gm In Sodium Chloride 0.9% 100 ml @ 25 mls/hr IVPB Q8H [facility] Rx#: [id number] Sodium Chloride 0.9% 1, 240 240 160 000 ml @ 20 mls/hr IV . Q24H [facility] Rx#:[id number] pressure bag .9 21 Intake, IV Titration 304.123 0337.863 1257.408 Amount Cisatracurium 200 mg In 200 109.443 Sodium Chloride 0.9% 180 ml @ 1 MCG/KG/MIN 7.893 mls/hr IV .Q24H [facility] Rx#: [id number] Heparin Sod,Pork in 0.45% 199.994 250.000 250 NaCl 25,000 unit In 0.45 % NaCl 1 250ml.bag @ 18 UNITS/KG/HR 22.392 mls/hr IV .[id number] [facility] Rx#: [id number] fentaNYL (PF). 2,500 mcg 250.000 500 500 In Sodium Chloride 0.9% 200 ml @ 0.5 MCG/KG/HR 6. 577 mls/hr IV .Q24H [facility] Rx#:[id number] propofoL 1,000 mg In 390.501 696.863 397.965 Empty Bag 1 bag @ Titrate IV .Q0M [facility] Rx#: [id number] Tube Feeding 154 141 Other 90 150 Output: Urine 2165 1325 1075 Other: Voiding Method Indwelling Catheter Indwelling Catheter ABP, PAP, CO, CI - Last Documented Arterial Blood Pressure 122/57 - Labs CBC & Chem 7: 08/16/21 04:19 08/16/21 04:19 Labs: Abnormal Lab Results - Last 24 Hours (Table) 08/15/21 08/15/21 08/16/21 Range/Units 17:08 22:00 04:19 WBC 15.7 H (3.8-10.6) k/uL RBC 2.63 L (4.30-5.90) m/uL Hgb 7.5 L (13.0-17.5) gm/dL Hct 23.9 L (39.0-53.0) % RDW 19.3 H (11.5-15.5) % Neutrophils # 13.0 H (1.3-7.7) k/uL APTT 69.6 H (22.0-30.0) sec D-Dimer (<0.60) mg/L FEU ABG pH (7.35-7.45) ABG pCO2 (35-45) mmHg ABG pO2 (83-108) mmHg ABG HCO3 (21-25) mmol/L ABG Total CO2 (19-24) mmol/L ABG O2 Saturation (94-97) % BUN (9-20) mg/dL Creatinine (0.66-1.25) mg/dL POC Glucose (mg/dL) 112 H (75-99) mg/dL Ferritin (22.0-322.0) ng/mL ALT (4-49) U/L Creatine Kinase (55-170) U/L C-Reactive Protein (<1.0) mg/dL Total Protein (6.3-8.2) g/dL Albumin (3.5-5.0) g/dL 08/16/21 08/16/21 08/16/21 Range/Units 04:19 04:19 05:35 WBC (3.8-10.6) k/uL RBC (4.30-5.90) m/uL Hgb (13.0-17.5) gm/dL Hct (39.0-53.0) % RDW (11.5-15.5) % Neutrophils # (1.3-7.7) k/uL APTT 48.7 H (22.0-30.0) sec D-Dimer 5.08 H (<0.60) mg/L FEU ABG pH 7.34 L (7.35-7.45) ABG pCO2 52 H (35-45) mmHg ABG pO2 70 L (83-108) mmHg ABG HCO3 28 H (21-25) mmol/L ABG Total CO2 30 H (19-24) mmol/L ABG O2 Saturation 92.3 L (94-97) % BUN 41 H (9-20) mg/dL Creatinine 1.30 H (0.66-1.25) mg/dL POC Glucose (mg/dL) (75-99) mg/dL Ferritin 1065.0 H (22.0-322.0) ng/mL ALT 104 H (4-49) U/L Creatine Kinase 50 L (55-170) U/L C-Reactive Protein 3.8 H (<1.0) mg/dL Total Protein 5.6 L (6.3-8.2) g/dL Albumin 2.8 L (3.5-5.0) g/dL 08/16/21 Range/Units 06:12 WBC (3.8-10.6) k/uL RBC (4.30-5.90) m/uL Hgb (13.0-17.5) gm/dL Hct (39.0-53.0) % RDW (11.5-15.5) % Neutrophils # (1.3-7.7) k/uL APTT (22.0-30.0) sec D-Dimer (<0.60) mg/L FEU ABG pH (7.35-7.45) ABG pCO2 (35-45) mmHg ABG pO2 (83-108) mmHg ABG HCO3 (21-25) mmol/L ABG Total CO2 (19-24) mmol/L ABG O2 Saturation (94-97) % BUN (9-20) mg/dL Creatinine (0.66-1.25) mg/dL POC Glucose (mg/dL) 70 L (75-99) mg/dL Ferritin (22.0-322.0) ng/mL ALT (4-49) U/L Creatine Kinase (55-170) U/L C-Reactive Protein (<1.0) mg/dL Total Protein (6.3-8.2) g/dL Albumin (3.5-5.0) g/dL
[2021-08-16] MEDS: SODIUM CHLORIDE 0.9% 1,000 ML IV SCH (16:27)
--- NOTE | 2021-08-16 16:58 | P.PN ---
Subjective Progress Note Date: 08/16/21 Principal diagnosis: COVID-19 bilateral pneumonia Acute hypoxic respiratory failure 31 years old -Prydeinig man with no significant past medical history presents with dyspnea which started yesterday associated with fever and coughing. Patient tested positive for covid earlier on Thursday after he felt with fever and cough on Thursday but at that time he was not dyspneic. He denies chest pain or abdominal pain but he has diarrhea on and off. No vomiting. He is saturating 89% on 6 L oxygen via nasal cannula, afebrile. Tachypneic with a breathing rate at 23. CBC, is unremarkable. INR is normal at 1.0. Sodium is 1:30, creatinine normal at 1.1, glucose 103. AST is mildly elevated 106 and ALT mildly elevated 106. Elevated lactate dehydrogenase 2600 and C-reactive protein 20.3. Cholelithiasis positive EKG shows sinus tachycardia and [address]-T changes Chest x-ray showing bilateral infiltrates 08/03/2021 patient is seen and evaluated ; continues to have difficulty breathing secondary to COVID-19 pneumonia. Earlier this morning at around 4 AM, the patient had a spell where he had an increased cough and in between he was unable to catch his breath and the patient desaturated. At that point, he was placed on BiPAP. He was quite hypoxic and he gradually build himself up and currently is back on 14/7 cm of water with an FiO2 of 90%. He is currently holding his BiPAP mask on his face. He is comfortable. He is also willing to consider to go back on high flow oxygen in addition to 100% on a beta facemask. --He remains on Decadron 6 mg on a daily basis. He remains on Baricitinib 4 mg on a daily basis. He remains on Lovenox 40 mg subcu on a daily basis. Labs are reviewed and reveal white cell count is at 9.8 with hemoglobin of 12.1. His d-dimer from 08/01/2021 was 1.87. Creatinine is at 1.09 with a BUN of 30 and the rest of the electrodes are all within normal limits. He is afebrile. He is tolerating his diet as the patient is able to eat in between different modes of oxygen delivery. He did have a spike of temperature of 11.6 yesterday. He is tachypneic his breathing is labored. Continue BiPAP treatment alternating with high flow oxygen at 6 L with an FiO2 of 90% Will monitor this patient on the medical floor and transferred to the intensive care unit if there is any worsening 08/04/2021 the patient is somewhat better compared to yesterday. - The patient gradually improved since then and currently is on high flow oxygen and 60 L of FiO2 of 90% in addition to 100% nonrebreather facemask; He remains on Decadron 6 mg on a daily basis and addition to Baricitinib 4 mg by mouth rachna; Lovenox and the dose is adjusted to 60 mg subcu every 12 hours because of an elevated d-dimer of 14.3. Meanwhile, his LDH still elevated at 2954 and a CRP still elevated at 13.8. Platelet electrodes are all within normal limits. His white cell count of 15.3 with hemoglobin of 13.4. Chest x- ray from today was reviewed and was compared to the earlier chest x-ray showed improvement in the inspiratory effort and there is also improvement in the right basilar consolidation. However there is still persistent and diffuse breath and pulmonary infiltrates perihilar and lower lobes bilaterally. Patient is awake and alert. No altered mentation. No other new complaints otherwise for now. 08/16/2021 The patient was admitted to the hospital with coronavirus associated pneumonia; moved to the intensive care unit on August 06, and intubated on the same day. He remains on the mechanical ventilator. --On August 14, the patient underwent tracheostomy. The PEG tube was attempted, but was not able to be done. Ventilator settings include the volume assist control mode White count 15.7, hemoglobin 7.5, hematocrit 23.9, platelet count 429,000. D- dimer was 5.08. Sodium 137, potassium 4.7, chlorides 107, CO2 24, anion gap is 6, BUN 41, creatinine 1.30. Albumin is 2.8. C-reactive protein is 3.8. Chest x-ray shows diffuse bilateral infiltrates. No change in chest x-ray compared to prior x-rays. Patient remains in intensive care unit with critical care on board; remains on IV Zosyn and Levaquin; cultures are negative so far; critical coronary recommending to continue with current management at this time Objective - Vital Signs Vital signs: Vital Signs Temp 98.1 F 08/16/21 08:00 Pulse 71 08/16/21 10:00 Resp 38 H 08/16/21 10:00 BP 96/54 08/15/21 23:07 Pulse Ox 97 08/16/21 10:00 Intake & Output 08/15/21 08/16/21 08/16/21 18:59 06:59 18:59 Intake Total 5267.759 0271.863 846.965 Output Total 2165 1325 450 Balance -266.137 8031.863 396.965 Intake: IV 490 440 239 Levofloxacin 250Mg-D5w 50 50 Pmx 250 mg In Dextrose/ Water 1 50ml.bag @ 50 mls /hr IVPB Q24H [facility] Rx#: [id number] Piperacillin-Tazobactam 3 200 200 100 .375 gm In Sodium Chloride 0.9% 100 ml @ 25 mls/hr IVPB Q8H [facility] Rx#: [id number] Sodium Chloride 0.9% 1, 240 240 80 000 ml @ 20 mls/hr IV . Q24H [facility] Rx#:[id number] pressure bag .9 9 Intake, IV Titration 177.427 2042.863 447.965 Amount Cisatracurium 200 mg In 200 Sodium Chloride 0.9% 180 ml @ 1 MCG/KG/MIN 7.893 mls/hr IV .Q24H [facility] Rx#: [id number] Heparin Sod,Pork in 0.45% 199.994 250.000 NaCl 25,000 unit In 0.45 % NaCl 1 250ml.bag @ 18 UNITS/KG/HR 22.392 mls/hr IV .[id number] [facility] Rx#: [id number] fentaNYL (PF). 2,500 mcg 250.000 500 250 In Sodium Chloride 0.9% 200 ml @ 0.5 MCG/KG/HR 6. 577 mls/hr IV .Q24H [facility] Rx#:[id number] propofoL 1,000 mg In 390.501 696.863 197.965 Empty Bag 1 bag @ Titrate IV .Q0M [facility] Rx#: [id number] Tube Feeding 154 70 Other 90 90 Output: Urine 2165 1325 450 Other: Voiding Method Indwelling Catheter Indwelling Catheter ABP, PAP, CO, CI - Last Documented Arterial Blood Pressure 117/55 - Exam GENERAL: The patient is alert and oriented x3, not in any acute distress. Well developed, well nourished. HEENT: Pupils are round and equally reacting to light. EOMI. No scleral icterus. No conjunctival pallor. Normocephalic, atraumatic. No pharyngeal erythema. No thyromegaly. CARDIOVASCULAR: S1 and S2 present. No murmurs, rubs, or gallops. -PULMONARY: Chest is clear to auscultation, no wheezing bilateral crepitation, tachypnea ABDOMEN: Soft, nontender, nondistended, normoactive bowel sounds. No palpable organomegaly. MUSCULOSKELETAL: No joint swelling or deformity. EXTREMITIES: No cyanosis, clubbing, or pedal edema. NEUROLOGICAL: Gross neurological examination did not reveal any focal deficits. SKIN: No rashes. No petechiae - Labs CBC & Chem 7: 08/16/21 04:19 08/16/21 04:19 Labs: Abnormal Lab Results - Last 24 Hours (Table) 08/15/21 08/15/21 08/15/21 Range/Units 04:05 12:45 14:12 WBC (3.8-10.6) k/uL RBC (4.30-5.90) m/uL Hgb (13.0-17.5) gm/dL Hct (39.0-53.0) % RDW (11.5-15.5) % Neutrophils # (1.3-7.7) k/uL APTT 33.4 H (22.0-30.0) sec D-Dimer (<0.60) mg/L FEU ABG pH (7.35-7.45) ABG pCO2 (35-45) mmHg ABG pO2 (83-108) mmHg ABG HCO3 (21-25) mmol/L ABG Total CO2 (19-24) mmol/L ABG O2 Saturation (94-97) % BUN (9-20) mg/dL Creatinine (0.66-1.25) mg/dL POC Glucose (mg/dL) 102 H (75-99) mg/dL Ferritin 1190.0 H (22.0-322.0) ng/mL ALT (4-49) U/L Creatine Kinase (55-170) U/L C-Reactive Protein (<1.0) mg/dL Total Protein (6.3-8.2) g/dL Albumin (3.5-5.0) g/dL 08/15/21 08/15/21 08/16/21 Range/Units 17:08 22:00 04:19 WBC 15.7 H (3.8-10.6) k/uL RBC 2.63 L (4.30-5.90) m/uL Hgb 7.5 L (13.0-17.5) gm/dL Hct 23.9 L (39.0-53.0) % RDW 19.3 H (11.5-15.5) % Neutrophils # 13.0 H (1.3-7.7) k/uL APTT 69.6 H (22.0-30.0) sec D-Dimer (<0.60) mg/L FEU ABG pH (7.35-7.45) ABG pCO2 (35-45) mmHg ABG pO2 (83-108) mmHg ABG HCO3 (21-25) mmol/L ABG Total CO2 (19-24) mmol/L ABG O2 Saturation (94-97) % BUN (9-20) mg/dL Creatinine (0.66-1.25) mg/dL POC Glucose (mg/dL) 112 H (75-99) mg/dL Ferritin (22.0-322.0) ng/mL ALT (4-49) U/L Creatine Kinase (55-170) U/L C-Reactive Protein (<1.0) mg/dL Total Protein (6.3-8.2) g/dL Albumin (3.5-5.0) g/dL 08/16/21 08/16/21 08/16/21 Range/Units 04:19 04:19 05:35 WBC (3.8-10.6) k/uL RBC (4.30-5.90) m/uL Hgb (13.0-17.5) gm/dL Hct (39.0-53.0) % RDW (11.5-15.5) % Neutrophils # (1.3-7.7) k/uL APTT 48.7 H (22.0-30.0) sec D-Dimer 5.08 H (<0.60) mg/L FEU ABG pH 7.34 L (7.35-7.45) ABG pCO2 52 H (35-45) mmHg ABG pO2 70 L (83-108) mmHg ABG HCO3 28 H (21-25) mmol/L ABG Total CO2 30 H (19-24) mmol/L ABG O2 Saturation 92.3 L (94-97) % BUN 41 H (9-20) mg/dL Creatinine 1.30 H (0.66-1.25) mg/dL POC Glucose (mg/dL) (75-99) mg/dL Ferritin (22.0-322.0) ng/mL ALT 104 H (4-49) U/L Creatine Kinase 50 L (55-170) U/L C-Reactive Protein 3.8 H (<1.0) mg/dL Total Protein 5.6 L (6.3-8.2) g/dL Albumin 2.8 L (3.5-5.0) g/dL 08/16/21 Range/Units 06:12 WBC (3.8-10.6) k/uL RBC (4.30-5.90) m/uL Hgb (13.0-17.5) gm/dL Hct (39.0-53.0) % RDW (11.5-15.5) % Neutrophils # (1.3-7.7) k/uL APTT (22.0-30.0) sec D-Dimer (<0.60) mg/L FEU ABG pH (7.35-7.45) ABG pCO2 (35-45) mmHg ABG pO2 (83-108) mmHg ABG HCO3 (21-25) mmol/L ABG Total CO2 (19-24) mmol/L ABG O2 Saturation (94-97) % BUN (9-20) mg/dL Creatinine (0.66-1.25) mg/dL POC Glucose (mg/dL) 70 L (75-99) mg/dL Ferritin (22.0-322.0) ng/mL ALT (4-49) U/L Creatine Kinase (55-170) U/L C-Reactive Protein (<1.0) mg/dL Total Protein (6.3-8.2) g/dL Albumin (3.5-5.0) g/dL Assessment and Plan Assessment: Acute bilateral Covid pneumonia Acute hypoxic respiratory failure Elevated inflammatory markers Obesity with BMI of 49.8 Plan: This is a pleasant 31 years old male who presents with bilateral Covid pneumonia and hypoxia. Continue with oxygen as needed Continue With dexamethasone and Lovenox. Continue with vitamin C, vitamin D and zinc c/w baricitinib Pulmonary consult Labs and medication were reviewed.. Continue same treatment. Continue with symptomatic treatment. Resume home medication. Monitor lytes and vitals. DVT and GI prophylaxis. Further recommendations depends on the clinical course of the patient DVT prophylaxis: Subcutaneous Lovenox GI Prophylaxis: Pepcid Prognosis is guarded
[2021-08-16 18:06] LABS: Glucose,Whole Blood 93 mg/dL (75-99)
[2021-08-16 18:50] LABS: Anisocytosis Slight; HCT 25.2 % (39.0-53.0); HGB 7.9 gm/dL (13.0-17.5); Hypochromasia Moderate; MCH 28.4 pg (25.0-35.0); MCHC 31.3 g/dL (31.0-37.0); Macrocytosis Slight; Mean Platelet Volume 9.6; Platelet Count 464 k/uL (150-450); RBC 2.77 m/uL (4.30-5.90); RDW 19.6 % (11.5-15.5); WBC 21.1 k/uL (3.8-10.6)
[2021-08-16 18:57] LABS: Prothrombin Time 10.7 sec (9.0-12.0)
[2021-08-16] MEDS ORDERED: THROMBIN (BOVINE) 5,000 UNIT VIAL TOPICAL STA (19:15)
[2021-08-16] MEDS ORDERED: PROTAMINE SULFATE IV ONE (19:30)
[2021-08-16 23:34] LABS: Anisocytosis Slight; HCT 26.3 % (39.0-53.0); HGB 8.1 gm/dL (13.0-17.5); Hypochromasia Marked; MCH 28.5 pg (25.0-35.0); MCHC 30.8 g/dL (31.0-37.0); MCV 92.6 fL (80.0-100.0); Macrocytosis Slight; Mean Platelet Volume 8.9; Platelet Count 368 k/uL (150-450); Poikilocytosis Slight; RBC 2.84 m/uL (4.30-5.90); RDW 18.7 % (11.5-15.5); WBC 20.4 k/uL (3.8-10.6)
[2021-08-17 00:15] LABS: Band Neutrophils % 18 %; Lymphocytes # (M) 1.43 k/uL (1.0-4.8); Metamyelocytes # (M) 0.82 k/uL (0); Metamyelocytes % 4 %; Monocytes # (M) 0.41 k/uL (0-1.0); Myelocytes % 1 %; Neutrophils % (M) 67 %; Nucleated Red Blood Cells 0 /100 WBC (0-0); Total Cells Counted 200
[2021-08-17 00:16] LABS: Glucose,Whole Blood 99 mg/dL (75-99)
[2021-08-17 00:16] LABS: Anisocytosis (M) Present; Poikilocytosis (M) Present; Polychromasia Present; Tear Drop Cells Present; Toxic Granulation Present
[2021-08-17] MEDS: fentaNYL (PF). 2,500 MCG in SODIUM CHLORIDE 0.9% 200 ML IV SCH ×5 (00:49→21:47)
[2021-08-17] MEDS: ARTIFICIAL TEARS-HYPROMELLOSE DROPS 15 ML BTL BOTH EYES SCH ×7 (00:51→23:12)
[2021-08-17] MEDS: INSULIN ASPART (NovoLOG) 100 UNIT/ML VIAL SQ SCH ×5 (00:51→23:13)
[2021-08-17] MEDS: HEPARIN SOD,PORK IN 0.45% NACL 25,000 UNIT in 0.45% NACL 1 250ML.BAG IV SCH ×2 (02:47→14:46)
[2021-08-17] MEDS ORDERED: CISATRACURIUM 2 MG/ML 5 ML VIAL IV ONE (03:36)
[2021-08-17] MEDS: PIPERACILLIN-TAZOBACTAM 3.375 GM in SODIUM CHLORIDE 0.9% 100 ML IVPB SCH ×3 (03:43→20:06)
[2021-08-17 04:41] LABS: Anisocytosis Slight; HCT 24.6 % (39.0-53.0); HGB 7.7 gm/dL (13.0-17.5); Hypochromasia Moderate; MCH 28.5 pg (25.0-35.0); MCHC 31.2 g/dL (31.0-37.0); MCV 91.3 fL (80.0-100.0); Macrocytosis Slight; Mean Platelet Volume 9.5; Platelet Count 348 k/uL (150-450); Poikilocytosis Moderate; RBC 2.69 m/uL (4.30-5.90); RDW 19.5 % (11.5-15.5); WBC 15.2 k/uL (3.8-10.6)
[2021-08-17 04:59] LABS: Albumin 2.6 g/dL (3.5-5.0); Calcium 8.8 mg/dL (8.4-10.2); Potassium 4.7 mmol/L (3.5-5.1); Total Bilirubin 0.6 mg/dL (0.2-1.3); Total Protein 5.3 g/dL (6.3-8.2)
[2021-08-17 05:09] LABS: Band Neutrophils % 7 %; Lymphocytes # (M) 1.22 k/uL (1.0-4.8); Metamyelocytes # (M) 0.46 k/uL (0); Metamyelocytes % 3 %; Neutrophils % (M) 80 %; Nucleated Red Blood Cells 0 /100 WBC (0-0); Total Cells Counted 200
[2021-08-17 05:10] LABS: Anisocytosis (M) Present; Poikilocytosis (M) Present; Polychromasia Present
[2021-08-17 06:02] LABS: Allen Test Performed? Yes
[2021-08-17 06:12] LABS: ABG Base Excess 1.1 mmol/L; ABG HCO3 27 mmol/L (21-25); ABG Oxygen Saturation 95.9 % (94-97); ABG PCO2 48 mmHg (35-45); ABG PH 7.36 (7.35-7.45); ABG PO2 81 mmHg (83-108); ABG TCO2 28 mmol/L (19-24)
--- NOTE | 2021-08-17 06:51 | XR ---
EXAMINATION TYPE: XR chest 1V portable DATE OF EXAM: 08/17/2021 COMPARISON: 08/16/2021 HISTORY: Shortness of breath TECHNIQUE: Single frontal view of the chest is obtained. FINDINGS: No change in tracheostomy tube or NG tube. The pulmonary vasculature appears mildly congested and there are bilateral basilar infiltrates which are stable. There are probable small bilateral pleural effusions as well. There is no pneumothorax. Heart size is normal for the technique. The osseous structures are intact IMPRESSION: No interval change in the mild pulmonary vascular congestion and bibasilar opacities.
[2021-08-17] MEDS: ALBUTEROL HFA INHALER INHALATION PRN ×2 (07:55→15:14)
[2021-08-17] MEDS: PANTOPRAZOLE 40 MG/10 ML VIAL IVP SCH ×2 (08:02→20:06)
[2021-08-17] MEDS: CHLORHEXIDINE GLUCONATE 15 ML CUP MUCOUS MEM SCH ×2 (08:02→20:05)
[2021-08-17] MEDS: CLEVIDIPINE BUTYRATE 25 MG in EMPTY BAG 1 BAG IV SCH (08:03)
[2021-08-17] MEDS: CHOLECALCIFEROL 25 MCG (1000 IU) TABLET PO SCH (08:03)
[2021-08-17] MEDS: ASCORBIC ACID 500 MG TAB PO SCH (08:03)
[2021-08-17] MEDS: METOPROLOL TARTRATE 25 MG TAB PO SCH ×2 (08:03→20:06)
[2021-08-17] MEDS: ZINC SULFATE 220 MG CAP PO SCH (08:03)
[2021-08-17] MEDS: amLODIPine 5 MG TAB PO SCH (08:03)
[2021-08-17] MEDS: DEXAMETHASONE SOD PHOSPHATE 10 MG/ML 1 ML VIAL IV SCH ×2 (08:03→20:05)
[2021-08-17] MEDS: LEVOFLOXACIN 250MG-D5W PMX 250 MG in DEXTROSE/WATER 1 50ML.BAG IVPB SCH (08:55)
[2021-08-17] MEDS: CISATRACURIUM 200 MG in SODIUM CHLORIDE 0.9% 180 ML IV SCH ×3 (08:56→23:00)
--- NOTE | 2021-08-17 12:03 | PN ---
PROGRESS NOTE Patient is seen for followup for acute kidney injury associated with underlying COVID infection and ischemic ATN. Serum creatinine has improved. Creatinine down to 1.26 now. Patient has good urine output. He had tracheostomy and was noted to have bleeding. He had some sutures placed and the bleeding has stopped now. Urine output is at about 75 to 100 mL/hour. Patient is not on any IV fluids. His FiO2 is down to 50%. Case is discussed with nursing staff. Patient is not examined. Blood pressure 152/95, heart rate 85 per minute. He is afebrile. Labs are reviewed. Hemoglobin 7.7, white cell count 15.2, sodium 135, potassium 4.7, BUN 32, creatinine 1.26. ASSESSMENT: 1. Acute kidney injury, acute tubular necrosis, currently nonoliguric, associated with COVID infection and sepsis as well as contrast-induced nephropathy. Renal function has improved. Baseline creatinine around 1. 2. Hyperkalemia associated with acute kidney injury, currently stable. Maintained on Nepro tube feedings. 3. Acute hypoxic respiratory failure secondary to COVID pneumonia and pulmonary embolism. 4. Right lung pulmonary embolism, maintained on anticoagulation. 5. Status post tracheostomy on August 14. 6. Hypervolemia, improved with diuresis, currently not on any Lasix. PLAN: Repeat labs in a.m. Continue current tube feedings and free water. MMODL / IJN: [id number] /
[2021-08-17 12:13] LABS: Glucose,Whole Blood 97 mg/dL (75-99)
--- NOTE | 2021-08-17 12:42 | P.PN ---
Subjective Progress Note Date: 08/17/21 Principal diagnosis: Coronavirus associated pneumonia. Acute hypoxic respiratory failure secondary to COVID-19 pneumonia On today's evaluation patient is seen in follow-up on 08/05/2021, he is currently on BiPAP support with pressure of 14/8, and the pulse ox is 87-93%, patient does alternate with Airvo at 60 L and 90% FiO2, and at bedtime and as needed for periods of time during the day he does go on BiPAP. He is awake and alert, he sitting up on the edge of the bed, dyspneic with exertion, but no acute distress, he remains on Bicitra neb, he is on IV Decadron, Lovenox 60 mg twice daily, he is on 0.9 normal saline at a rate of 50 ML per hour, he is on multivitamins, his latest chest x-ray from 08/04/2021 showed improved inspiration, improved right basilar focal consolidation, and persistent bilateral diffuse reticulonodular opacities in the lower lungs consistent with known COVID-19 infection. Today's labs have been reviewed, his white blood cell count is 19.1, hemoglobin is 13.1, d-dimer is 14.3, sodium is 133, the rest of electrolytes and renal profile were fairly unremarkable, his inflammatory markers are relatively stable and LDH is 2935, and CRP is 18.2, pro calcitonin level is slightly improved and is down to 0.40. His blood and sputum cultures have shown no growth. He did have a fever with a temp of 101.7F. Currently afebrile. No complaints of chest discomfort. No hemoptysis, his lower extremity Dopplers were negative for DVT. On 08/06/2021 patient seen in follow-up on medical surgical floor. Patient still requiring high flow oxygen per Airvo, and he is requiring BiPAP support most of time with pressures of 14/88 and FiO2 of 100% and his pulse ox is 87- 90%, he continues to have fevers, with a T-max 101.7F, overnight his fever pa ttern has improved and he still having some low-grade fevers. He is short of breath with any exertion. He continues on Decadron 6 mg daily, Baricitinib, and Lovenox at intermediate dosing at 0.5 mg/kg twice daily which is above 60 mg twice daily for this patient's weight. His d-dimer is down to 8.58 on today's labs, improved although still significantly elevated, lower extremity Dopplers were negative for any evidence of DVT. There is concern for superimposed bacterial infection, especially in view of fever, and elevated white blood cell count. Today's white count is 22.1, hemoglobin is 13, sodium is 131, rest of electrolytes were within normal limits, B1 is 27 creatinine 0.89, pro Level Was Borderline at 0.40, Also Suggestive of a Possible Super Imposed Bacterial Infection. Patient was transferred yesterday to the ICU, and around 2 AM this morning, I was notified about this patient is not doing well. Patient was noted to be desaturating, anxious, tachycardic, and patient did not improve much with Precedex. Hence I recommended intubating the patient. Patient was intubated by BONUS CLERK, trace on mechanical ventilation, and he is now on assist control rate of 38, tidal volume of 375 100% FiO2 and PEEP is 18. His ABG showed a pO2 of 99 pCO2 57 pH of 7.27. Patient is on multiple drips including propofol at 50 fentanyl at 0.25 mcg/kg/h, Nimbex at 1 and he is on IV fluid 0.9 normal saline at 50 mL per hour. Patient was actually intubated around 2:45 AM this morning. Reviewed his chest x-ray, clearly showed bilateral infiltrates, consistent with COVID-19 pneumonia. His endotracheal tube is in the proper position. And his orogastric tube is also in the proper position. After reviewing his ABG, I cut down his FiO2 to 90%, may consider going higher on the PEEP, may also consider placing the patient in prone position. I have consulted interventional radiology for a PICC line placement, and I went ahead and placed a right radial arterial line. Patient will be off heparin for a couple of hours prior to the PICC line placement. I reviewed his CT angiogram of the chest from yesterday, the minor evidence of pulmonary embolism is not clinically impressive, however nonetheless the patient will need to be heparinized noticing that he has elevated d-dimer and the fact that he has COVID-19 pneumonia which is a major provoking factor for thrombus embolic disease. WBC count today is 19 hemoglobin is 11.9 his PTT was therapeutic initially at 50.1, and this morning it is 37.9, patient received a heparin bolus. Electrolytes are normal potassium is 5.1 BUN is 28 creatinine is 1.03. Medications espinoza, patient is on albuterol, amlodipine, vitamin C, Peridex, vitamin D, Nimbex, Decadron 6 mg IV push daily, fentanyl, heparin, hydralazine, metoprolol, lisinopril, Protonix, Zosyn, and zinc. Used to be on baricitimib, however because of his leukocytosis and elevat ed pro calcitonin, this was discontinued, and we started the patient empirically on antibiotics. Blood cultures and sputum cultures so far are negative. And they seem to be nondiagnostic so far. At one point, the patient was spiking fevers, his T-max yesterday was 99.1. The patient is seen today 08/08/2021 and follow-up in the intensive care unit. He remains intubated, sedated, paralyzed and on the mechanical ventilator. Current settings are assist control at a rate of 38, tidal volume 375, FiO2 100% and a PEEP of 18. Peak pressures of 35, plateau of 33. Morning blood gases revealed a PaO2 of 205, pCO2 56, pH 7.22. He remains in sinus tachycardia currently at 104. He is currently on propofol 50 mcg/kg/m, fentanyl at 0.25 mcg/kg per hour, Nimbex at 1 mcg/kg/m, heparin drip per weight-based protocol. 0.9 normal saline at 125 ML's per hour. Staff did attempt to prone the patient yesterday however he had a significant cuff leak, significant desaturations and had to be placed back in supine position almost immediately. Chest x-ray reveals continued diffuse fine interstitial infiltrates, left greater than right with possibly some slight improvement in aeration. Blood cultures reveal no growth. Sputum cultures reveal no growth. White count 15.1. Hemoglobin 9.8. Platelets 230. Lymphocytes 0.8. Sodium 133. Potassium 5.6. Bicarb 21. Creatinine 2.88. Blood glucose 118. AST 39. ALT 61. He is continued on Decadron, Zosyn, vitamin supplements. He is currently afebrile. Not requiring pressors. He is being nourished with vital AF at 20 ML's per hour. Reevaluated today on 08/09/2021, patient remains in the ICU, intubated and mechanically ventilated, sedated and paralyzed. Ventilator settings are assist control rate of 38 tidal volume 375 FiO2 65% PEEP increased to 20 this morning. ABG earlier on a PEEP of 18 showed a pO2 of 66 pCO2 of 56 pH of 7.35. Patient is on Nimbex at 2 mcg/kg/m fentanyl 0.5 mcg/kg/h propofol at 55 mcg/kg/m still on a bicarb drip at 75 mL per hour. Patient is on enteral feeding using vital AF 28/28. Patient remains on Decadron at 6 mg IV push twice a day. Remains on heparin. Remains on the COVID-19 cocktail. Remains on albuterol, remains on GI prophylaxis. Insulin as per protocol, metoprolol Pavithra and empirically on Zosyn for his elevated pro calcitonin level. Chest x-ray continues to show bilateral interstitial infiltrates consistent with COVID-19 pneumonia not much of a change noted on the chest x-ray today. Labs, showed relatively normal CBC. PTT is 41.6, patient is on heparin, electrolytes are normal renal profile showed slight improvement to BUN is 53 creatinine 2.22. Repeat pro calcitonin yesterday was 5.5, last LDH was 2931, and C-reactive protein is elevated at 31.6 Reevaluated today on 08/10/2021, remains in the ICU intubated and mechanically ventilated, sedated and paralyzed. Thank you the settings are assist control rate 38 tidal volumes at 375 FiO2 50% PEEP of 20, peak airway pressure 39 left total pressure is 37 ABG showed a pO2 of 65 pCO2 52 pH of 7.35. Remains on multiple drips including Nimbex at 2 mcg/kg/m, propofol at 70 micrograms per kilo per minute fentanyl at 1.5 mcg/kg/m and cutting down to 1 mcg/kg/m. Remains on enteral feeding with vital AF 28/28. Remains on Decadron 6 mg twice a day remains on Zosyn and his last procalcitonin was 5.5 Chest x-ray continues to show evidence of bilateral infiltrates left seems to be more involved than the right. Labs today showed d-dimer of 1.78 down from 8.58, patient remains on heparin. CT of the chest showed nonocclusive thromboembolic disease. LDH is down to 1114 from 2931 and C-reactive protein is elevated at 19.9 but much better compared to a few days ago where it was about 32. WBC count is 11.8 hemoglobin is 8.4. Platelets are 317,000 Patient was reevaluated today on 08/11/21, patient remains in the ICU, intubated and mechanically ventilated. Patient is sedated and paralyzed, he is on Nimbex at 1.5 mcg/kg/m, fentanyl at 1 mcg/kg/h, propofol is 65 mcg/kg/h, he is also on heparin drip and he is on IV fluid at 65 mL per hour in the form of 0.9 normal saline. Patient is receiving enteral feeding vital AF Ventilator settings include assist control rate of 38 tidal volume 375 FiO2 60% PEEP of 20, ABG showed a pO2 of 58 pCO2 of 55 pH of 7.31, and this was on 55%, hence the FiO2 was increased to 60%. Patient desaturates even with a PEEP down to 18, hence I'm keeping him on a PEEP of 24 now. Chest x-ray shows bilateral infiltrates, however the left lower lobe seems to be more involved than the rest of the lungs, more infiltrate noted in the left lower lobe area. Patient remains on Zosyn, he is off baricitinib, mostly because of his elevated pro calcitonin level, and he was placed on antibiotics empirically. And will add Levaquin empirically in addition to Zosyn. Cultures so far are nondiagnostic. Patient remains on Decadron 6 mg twice a day. And he is also on the COVID-19 cocktail. Patient remains on the COVID-19 cocktail, and he remains on GI and DVT prophylaxis Progress note dated 08/12/2021. 31-year-old black male, again seen in the intensive care unit, room 262. The patient was admitted on July 31 with coronavirus associated pneumonia. He was moved to the intensive care unit on August 06 and intubated on the same day for worsening respiratory failure with hypoxemia. Currently, the patient remains on the mechanical ventilator. He is on the volume assist control mode, rate 38, tidal volume 375, FiO2 60%, to be decreased to 50%, and PEEP of 20. Arterial blood gases show pO2 of 70, pCO2 of 49, and a pH is 7.36. The patient is receiving saline at 50 mL an hour, propofol 60 mcg/kg/m, Nimbex at 2 mcg/kg/m with train of four monitoring, heparin via weightbase protocol, fentanyl at 2 mcg/kg/h, and vital AF at goal, which is 28 mL an hour. White count 15, hemoglobin 7.8, hematocrit 26.1, and platelet count 433,000. D-dimer was 1.68. Sodium 140, potassium 5.3, chlorides 111, CO2 25, anion gap 4, BUN 60, and creatinine 1.73. LDH is 1160. C-reactive protein is 5.8. Chest x-ray shows diffuse bilateral infiltrates. This is consistent with his known diagnosis of coronavirus associated pneumonia. Endotracheal tube is about 3-1/2 cm above the tracheal delmer. Progress note dated 08/13/2021. 31-year-old black male, again seen in the intensive care unit, room 262. The patient was admitted to the hospital on July 31 with coronavirus associated pneumonia. He was moved to the intensive care unit on August 06, and intubated on the same day for worsening hypoxemic respiratory failure. The patient remains on mechanical ventilator. His ventilator settings include the volume assist control, rate 38, tidal volume 375, FiO2 currently 75%, with a PEEP of 20. He had blood gases done early in the morning showing a pO2 of 49, pCO2 of 62, and a pH is 7.26. That was when he was on 50% and when he was getting a bath. Subsequently, we increase his FiO2 to 100%, and he is now been weaned down to 75%. I did asked the respiratory therapist to repeat an ABG. The patient's currently receiving propofol at 75 mcg/kg/m, Nimbex at 2 mcg/kg/m, fentanyl at 3 mcg/kg/h, and heparin via weightbase protocol. He is getting saline at KVO, and tube feedings with Nepro at 14 mL an hour, which is goal. He remains on Zosyn and Levaquin. He is apparently scheduled for tracheostomy and PEG tube placement on Thursday. White count is 30, hemoglobin 9.5, hematocrit 31.7, platelet count 634,000. D-dimer is 2.68. Sodium 140, potassium 5.6, chlorides 108, CO2 27, anion gap 5, BUN 51, and creatinine 1.61. LDH is 1730. C-reactive protein is 4.1. Albumin is 3.1. Chest x-ray shows diffuse bilateral infiltrates, essentially unchanged. Progress note dated 08/14/2021. 31-year-old black male, again seen in the intensive care unit, room 262. The patient was admitted to the hospital on July 31 with coronavirus associated pneumonia. He was moved to the intensive care unit on August 06, and intubated on the same day for worsening oxygenation. The patient remains on the mechanical ventilator. Today, the patient will have a tracheostomy tube placed as well as a PEG tube placed. Current ventilator settings include the volume assist control mode, rate 38, tidal volume 375, FiO2 55%, and PEEP of 20. Blood gases on the same settings except for 40% FiO2, show a PaO2 of 49, pCO2 of 51, and a pH 7.37. When I was alerted about these blood gases, I increased the FiO2 from 40% up to 55%. Currently, saturations are in the low 90s. The patient's on Nimbex at 2 g kilogram per minute, propofol at 65 mcg/kg/m, 0.9 saline at 20 mL an hour, fentanyl at 2 mcg/kg/h, heparin via weightbase protocol, and tube feedings are currently on hold for anticipated tracheostomy and PEG tube today. White count 17.5, hemoglobin 7.7, hematocrit 25.1, and platelet count 462,000. Sodium 139, potassium 5.2, chlorides 108, CO2 24, anion gap 7, BUN 51, and crea tinine 1.77. Chest x-ray again shows diffuse bilateral infiltrates, which are essentially unchanged. Progress note dated 08/15/2021. 31-year-old black male, again seen in the ICU, room 262. The patient was admitted to the hospital on July 31 with coronavirus associated pneumonia. Because of worsening hypoxemia, he was moved to the intensive care unit on August 06. It's intubated on the same day. He remains on mechanical ventilator. Yesterday, he had a tracheostomy performed. A PEG tube was apparently attempted, but not able to be performed. He remains on the volume assist control mode with, with a rate of 38, tidal volume 375, FiO2 55%, any. Arterial blood gases show pO2 70, pCO2 37, and a pH is 7.4. The patient's currently on propofol at 75 mcg/kg/m, Nimbex at 2 mcg/kg/m, fentanyl at 2.5 mcg/kg/h, saline at 20 mL an hour, and he will be restarted on IV heparin. Unfortunately, there was no NG tube. It was removed during the attempted procedure yesterday, and the nurses have been having a hard time replacing it. We will try again today. White count 15.6, hemoglobin 7.4, hematocrit 23.7, and platelet count 404,000. PTT was 20.9. D-dimer 3.76. Sodium 137, potassium 4.9, chlorides 105, CO2 25, anion gap 7, BUN 49, and creatinine 1.59. Chest x- ray continues to show diffuse bilateral infiltrates, may be a bit improved. Progress note dated 08/16/2021. 31 yo black male, again seen in the intensive care unit, room 262. The patient was admitted to the hospital on July 31, with coronavirus associated pneumonia. Because of worsening hypoxemia, he was moved to the intensive care unit on August 06, and intubated on the same day. He remains on the mechanical ventilator. On August 14, the patient underwent tracheostomy. The PEG tube was attempted, but was not able to be done. Ventilator settings include the volume assist control mode, rate 38, tidal volume 375, FiO2 55%, and PEEP of 20. Blood gases show a PaO2 of 70, pCO2 of 52, and a pH of 7.34. The patient is currently on fentanyl, at 4 mcg/kg/h, propofol at 75 mcg/kg/m, Nimbex at 2 mcg/ kg/m, Nepro, at 14 mL an hour, which is goal, and saline at KVO. White count 15.7, hemoglobin 7.5, hematocrit 23.9, platelet count 429,000. D-dimer was 5.08. Sodium 137, potassium 4.7, chlorides 107, CO2 24, anion gap is 6, BUN 41, creatinine 1.30. Albumin is 2.8. C-reactive protein is 3.8. Chest x-ray shows diffuse bilateral infiltrates. No change in chest x-ray compared to prior x- rays. Progress note dated 08/17/2021. 31-year-old black male, seen again in the intensive care unit, room 262. The patient was admitted to the hospital on July 31, with coronavirus associated pneumonia. Because of worsening hypoxemia, he was moved to the intensive care unit on August 06 and intubated on the same day. He remains on the mechanical ventilator. On August 14, the patient underwent tracheostomy. The PEG tube was attempted, but could not be performed. Current ventilator settings include the volume assist control mode, rate 38, tidal volume 375, FiO2 50%, PEEP of 20, to be turned down to 15. Arterial blood gases show pO2 of 81, pCO2 48, and a pH is 7.36. The patient's on saline at 20 mL an hour, fentanyl at 4 mcg/kg/h, propofol at 75 mcg/kg/m, Nimbex at 3 g kilogram per minute, and tube feedings with Nepro at 14 mL an hour, which is goal. Last night, because of bleeding around the tracheostomy site, I gave the patient 1 unit of packed red blood cells, 1 unit of platelets, and protamine sulfate. The bleeding did stop. White count is 15.2, hemoglobin 7.7, hematocrit 24.6, and platelet count 348,000. Sodium 135, potassium 4.7, chlorides 107, CO2 25, anion gap 3, BUN 32, creatinine 1.26. Chest x-ray from today, shows stable bilateral pulmonary infiltrates. Objective - Vital Signs Vital signs: Vital Signs Temp 97.8 F 08/17/21 08:00 Pulse 85 08/17/21 11:00 Resp 38 H 08/17/21 11:00 BP 118/65 08/16/21 21:12 Pulse Ox 95 08/17/21 11:00 Intake & Output 08/16/21 08/17/21 08/17/21 18:59 06:59 18:59 Intake Total 2348.949 2434.051 669 Output Total 1350 1822 550 Balance 998.949 612.051 119 Weight 124.4 kg 123.5 kg Intake: IV 423 299 115 Levofloxacin 250Mg-D5w 50 Pmx 250 mg In Dextrose/ Water 1 50ml.bag @ 50 mls /hr IVPB Q24H [facility] Rx#: [id number] Piperacillin-Tazobactam 3 100 .375 gm In Sodium Chloride 0.9% 100 ml @ 25 mls/hr IVPB Q8H [facility] Rx#: [id number] Sodium Chloride 0.9% 1, 240 260 100 000 ml @ 20 mls/hr IV . Q24H [facility] Rx#:[id number] pressure bag .9 33 39 15 Intake, IV Titration 3698.134 7026.051 350 Amount Cisatracurium 200 mg In 143.514 240.252 Sodium Chloride 0.9% 180 ml @ 1 MCG/KG/MIN 7.893 mls/hr IV .Q24H [facility] Rx#: [id number] Heparin Sod,Pork in 0.45% 307.639 NaCl 25,000 unit In 0.45 % NaCl 1 250ml.bag @ 18 UNITS/KG/HR 22.392 mls/hr IV .[id number] [facility] Rx#: [id number] fentaNYL (PF). 2,500 mcg 500 721.799 250 In Sodium Chloride 0.9% 200 ml @ 0.5 MCG/KG/HR 6. 577 mls/hr IV .Q24H [facility] Rx#:[id number] propofoL 1,000 mg In 597.796 500 100 Empty Bag 1 bag @ Titrate IV .Q0M [facility] Rx#: [id number] Tube Feeding 197 70 84 Blood Product 573 Platelet L[facility] [place] 263 Cnt1 Unit [id number] Rc As-1 Unit 310 [id number] Other 180 30 120 Output: Gastric Drainage 200 Urine 1350 1620 550 Estimated Blood Loss 2 Other: Voiding Method Indwelling Catheter Indwelling Catheter Indwelling Catheter ABP, PAP, CO, CI - Last Documented Arterial Blood Pressure 152/95 - Exam No acute distress, sedated and paralyzed, with a midline tracheostomy tube. HEENT examination is grossly unremarkable. Neck supple. Full range of motion. No adenopathy thyromegaly or neck vein distention. Cardiovascular examination reveals regular rhythm rate. S1-S2 normal. No S3 or S4. No discernible murmur noted. Heart sounds are distant. Heart rate 93 bpm. Lungs reveal coarse bilateral rhonchi. Breath sounds equal bilaterally. No wheezes or crackles. Saturations are 92% on 50% FiO2 and a PEEP of 20. Abdomen soft bowel sounds are heard. No masses or tenderness. Extremities are intact. No cyanosis clubbing or edema. Skin is without rash or lesion. Neurologic examination cannot be adequately assessed at this time given the level of sedation and paralysis. - Labs CBC & Chem 7: 08/17/21 04:25 08/17/21 04:25 Labs: Abnormal Lab Results - Last 24 Hours (Table) 08/16/21 08/16/21 08/16/21 Range/Units 18:35 18:46 22:05 WBC 21.1 H 20.4 H (3.8-10.6) k/uL RBC 2.77 L 2.84 L (4.30-5.90) m/uL Hgb 7.9 L 8.1 L (13.0-17.5) gm/dL Hct 25.2 L 26.3 L (39.0-53.0) % MCHC 30.8 L (31.0-37.0) g/dL RDW 19.6 H 18.7 H (11.5-15.5) % Plt Count 464 H (150-450) k/uL Neutrophils # (Manual) 17.30 H (1.3-7.7) k/uL Metamyelocytes # (Man) 0.82 H (0) k/uL Myelocytes # (Manual) 0.20 H (0) k/uL ABG pCO2 (35-45) mmHg ABG pO2 (83-108) mmHg ABG HCO3 (21-25) mmol/L ABG Total CO2 (19-24) mmol/L Sodium (137-145) mmol/L BUN (9-20) mg/dL Creatinine (0.66-1.25) mg/dL ALT (4-49) U/L Total Protein (6.3-8.2) g/dL Albumin (3.5-5.0) g/dL Crossmatch See Detail 08/17/21 08/17/21 08/17/21 Range/Units 04:25 04:25 06:20 WBC 15.2 H (3.8-10.6) k/uL RBC 2.69 L (4.30-5.90) m/uL Hgb 7.7 L (13.0-17.5) gm/dL Hct 24.6 L (39.0-53.0) % MCHC (31.0-37.0) g/dL RDW 19.5 H (11.5-15.5) % Plt Count (150-450) k/uL Neutrophils # (Manual) 13.20 H (1.3-7.7) k/uL Metamyelocytes # (Man) 0.46 H (0) k/uL Myelocytes # (Manual) (0) k/uL ABG pCO2 48 H (35-45) mmHg ABG pO2 81 L (83-108) mmHg ABG HCO3 27 H (21-25) mmol/L ABG Total CO2 28 H (19-24) mmol/L Sodium 135 L (137-145) mmol/L BUN 32 H (9-20) mg/dL Creatinine 1.26 H (0.66-1.25) mg/dL ALT 91 H (4-49) U/L Total Protein 5.3 L (6.3-8.2) g/dL Albumin 2.6 L (3.5-5.0) g/dL Crossmatch Assessment and Plan Assessment: Acute hypoxemic respiratory failure secondary to coronavirus associated pneumonia, status post intubation and mechanical ventilation on August 06. Status post tracheostomy tube insertion, 08/14/2021. Unfortunately, PEG tube could not be placed on that same day. Acute respiratory distress syndrome. Elevated inflammatory marker secondary to coronavirus infection. Acute/subacute pulmonary embolism. Elevated liver enzymes secondary to coronavirus infection. Morbid obesity. Plan: Plan dated 08/12/2021. We'll attempt to get the patient off of the paralytic if possible. I gave instructions to the nurse. In addition, we will continue with the propofol and the fentanyl for now. We'll reduce the FiO2 down from 60%, down to 50%. I told the nurses and respiratory therapist except saturations in the mid 80s or higher. The patient will continue on heparin for now. Additional recommendations and suggestions are forthcoming. Prognosis is guarded. We will continue to follow this patient, and make recommendations where appropriate. Plan dated 08/13/2021. We're unable to get the patient off the paralytic. During his bath, his saturations dropped and his blood pressure went up. The nurses contacted me. I ordered the FiO2 to be increased to 100%, and also use labetalol IV for blood pressure control. At that point, he was on maximal dose Cleveprex. He is scheduled for a tracheostomy and PEG tube tomorrow. I think that's espinoza. We will repeat a blood gas and a few minutes. His FiO2 is been weaned down to 75%. Additional recommendations and suggestions are forthcoming. His medications are reviewed. He remains on Zosyn and Levaquin. Microbiology is as far all negative. Plan dated 08/14/2021. The patient's going to have a tracheostomy and PEG tube placed today by surgery. I think that will give him the best chance of full recovery. The patient's FiO2 was increased from 40%, up to 55%, when I was alerted about the morning blo od gases. Patient remains on fentanyl, propofol, and Nimbex. We will resume tube feedings after 24 hours post placement of the feeding tube. Labs, x-rays, and medications all reviewed. Everything is appropriate at this time. The patient remains on antibiotics in the form of Zosyn and Levaquin. Microbiology thus far as all been negative. We will continue to follow make recommendations where appropriate. Prognosis is guarded. Plan dated 08/15/2021. The patient did have his tracheostomy tube placed on August 14. Unfortunately, the PEG tube was not able to be place. The patient will be started back on heparin. The nurses will attempt to place an NG tube. The patient remains on propofol, Nimbex, and fentanyl. We will restart tube feeds once the NG tube was replaced. Overall prognosis remains very guarded. Labs, x-rays, and medications are all reviewed. Everything does seem to be appropriate. We will continue to follow this patient, and make recommendations where appropriate. The patient remains on Zosyn and Levaquin, and all microbiologic studies as far have been negative. Plan dated 08/16/2021. The patient is doing about the same. The goal today would be to try to get him off the paralytic. The patient's labs, x-rays, and medications are all reviewed. Everything is appropriate. We will continue to follow closely and make every attempt the patient moving in the right direction and eventually off the ventilator. The patient remains on Zosyn and Levaquin. Microbiologic studies have been negative. Additional recommendations and suggestions are forthcoming. We will continue to follow this patient and make recommendations where appropriate. Plan dated 08/17/2021. Currently, the patient appears to be reasonably stable. We will drop the PEEP from 20 down to 15 cm water. Blood gases this morning were excellent. The patient did receive blood, platelets, and protamine. Because of bleeding around the tracheostomy site. Remains on fentanyl, propofol and Nimbex. He is getting nourished at goal. Yesterday, we attempted to stop the Nimbex, but we had to restart it because became very tachypnea. Additional recommendations and suggestions are forthcoming. Prognosis is guarded. The patient is very critically ill. Time with Patient: Greater than 30
--- NOTE | 2021-08-17 14:03 | P.PN ---
Subjective Progress Note Date: 08/17/21 CHIEF COMPLAINT: Covid pneumonia HISTORY OF PRESENT ILLNESS: The patient is a 31-year-old male admitted with pneumonia due to Covid. He is mechanically ventilated. Currently, patient pending gastrostomy tube placement. Prior attempt limited due to patient's body habitus. REVIEW OF ORGAN SYSTEMS: No fevers or chills. Mechanically ventilated. Morbid obesity with BMI 46.7. PHYSICAL EXAM: VITAL SIGNS: Stable GENERAL: Well-developed pleasant in no acute distress. HEENT: No scleral icterus. Extraocular movements grossly intact. Moist buccal mucosa. Tracheostomy intact CHEST: Mechanical ventilation with equal bilateral excursions. CARDIOVASCULAR: 2+ pulses ABDOMEN: Protuberant. No peritonitis. MUSCULOSKELETAL: No clubbing, cyanosis. NEURO: Sedated SKIN: Well perfused. PSYCH: sedated. LABS: Reviewed. WBC down from 22,000 to 15,000+ with leukocytosis. Hemoglobin down 8.1-7.7 with anemia ASSESSMENT: 1. Covid pneumonia 2. Inadequate oral intake with protein malnutrition 3. Status post gastrostomy tube placement 4. Status post tracheostomy 5. Morbid obesity due to excess calories, BMI 46.7 6. Anemia PLAN: 1. Continue supportive care due to Covid pneumonia 2. May reattempt gastrostomy tube placement 3. Continue TPN Objective - Vital Signs Vital signs: Vital Signs Temp 97.8 F 08/17/21 08:00 Pulse 70 08/17/21 10:00 Resp 38 H 08/17/21 10:00 BP 118/65 08/16/21 21:12 Pulse Ox 97 08/17/21 10:00 Intake & Output 08/16/21 08/17/21 08/17/21 18:59 06:59 18:59 Intake Total 2348.949 2434.051 178 Output Total 1350 1822 200 Balance 998.949 612.051 -22 Weight 124.4 kg 123.5 kg Intake: IV 423 299 46 Levofloxacin 250Mg-D5w 50 Pmx 250 mg In Dextrose/ Water 1 50ml.bag @ 50 mls /hr IVPB Q24H [facility] Rx#: [id number] Piperacillin-Tazobactam 3 100 .375 gm In Sodium Chloride 0.9% 100 ml @ 25 mls/hr IVPB Q8H [facility] Rx#: [id number] Sodium Chloride 0.9% 1, 240 260 40 000 ml @ 20 mls/hr IV . Q24H [facility] Rx#:[id number] pressure bag .9 33 39 6 Intake, IV Titration 5857.493 0647.051 Amount Cisatracurium 200 mg In 143.514 240.252 Sodium Chloride 0.9% 180 ml @ 1 MCG/KG/MIN 7.893 mls/hr IV .Q24H [facility] Rx#: [id number] Heparin Sod,Pork in 0.45% 307.639 NaCl 25,000 unit In 0.45 % NaCl 1 250ml.bag @ 18 UNITS/KG/HR 22.392 mls/hr IV .[id number] [facility] Rx#: [id number] fentaNYL (PF). 2,500 mcg 500 721.799 In Sodium Chloride 0.9% 200 ml @ 0.5 MCG/KG/HR 6. 577 mls/hr IV .Q24H [facility] Rx#:[id number] propofoL 1,000 mg In 597.796 500 Empty Bag 1 bag @ Titrate IV .Q0M [facility] Rx#: [id number] Tube Feeding 197 70 42 Blood Product 573 Platelet [place] 263 Cnt1 Unit [id number] Rc As-1 Unit 310 [id number] Other 180 30 90 Output: Gastric Drainage 200 Urine 1350 1620 200 Estimated Blood Loss 2 Other: Voiding Method Indwelling Catheter Indwelling Catheter Indwelling Catheter ABP, PAP, CO, CI - Last Documented Arterial Blood Pressure 159/73 - Labs CBC & Chem 7: 08/17/21 04:25 08/17/21 04:25 Labs: Abnormal Lab Results - Last 24 Hours (Table) 08/16/21 08/16/21 08/16/21 Range/Units 04:19 18:35 18:46 WBC 21.1 H (3.8-10.6) k/uL RBC 2.77 L (4.30-5.90) m/uL Hgb 7.9 L (13.0-17.5) gm/dL Hct 25.2 L (39.0-53.0) % MCHC (31.0-37.0) g/dL RDW 19.6 H (11.5-15.5) % Plt Count 464 H (150-450) k/uL Neutrophils # (Manual) (1.3-7.7) k/uL Metamyelocytes # (Man) (0) k/uL Myelocytes # (Manual) (0) k/uL ABG pCO2 (35-45) mmHg ABG pO2 (83-108) mmHg ABG HCO3 (21-25) mmol/L ABG Total CO2 (19-24) mmol/L Sodium (137-145) mmol/L BUN (9-20) mg/dL Creatinine (0.66-1.25) mg/dL Ferritin 1065.0 H (22.0-322.0) ng/mL ALT (4-49) U/L Total Protein (6.3-8.2) g/dL Albumin (3.5-5.0) g/dL Crossmatch See Detail 08/16/21 08/17/21 08/17/21 Range/Units 22:05 04:25 04:25 WBC 20.4 H 15.2 H (3.8-10.6) k/uL RBC 2.84 L 2.69 L (4.30-5.90) m/uL Hgb 8.1 L 7.7 L (13.0-17.5) gm/dL Hct 26.3 L 24.6 L (39.0-53.0) % MCHC 30.8 L (31.0-37.0) g/dL RDW 18.7 H 19.5 H (11.5-15.5) % Plt Count (150-450) k/uL Neutrophils # (Manual) 17.30 H 13.20 H (1.3-7.7) k/uL Metamyelocytes # (Man) 0.82 H 0.46 H (0) k/uL Myelocytes # (Manual) 0.20 H (0) k/uL ABG pCO2 (35-45) mmHg ABG pO2 (83-108) mmHg ABG HCO3 (21-25) mmol/L ABG Total CO2 (19-24) mmol/L Sodium 135 L (137-145) mmol/L BUN 32 H (9-20) mg/dL Creatinine 1.26 H (0.66-1.25) mg/dL Ferritin (22.0-322.0) ng/mL ALT 91 H (4-49) U/L Total Protein 5.3 L (6.3-8.2) g/dL Albumin 2.6 L (3.5-5.0) g/dL Crossmatch 08/17/21 Range/Units 06:20 WBC (3.8-10.6) k/uL RBC (4.30-5.90) m/uL Hgb (13.0-17.5) gm/dL Hct (39.0-53.0) % MCHC (31.0-37.0) g/dL RDW (11.5-15.5) % Plt Count (150-450) k/uL Neutrophils # (Manual) (1.3-7.7) k/uL Metamyelocytes # (Man) (0) k/uL Myelocytes # (Manual) (0) k/uL ABG pCO2 48 H (35-45) mmHg ABG pO2 81 L (83-108) mmHg ABG HCO3 27 H (21-25) mmol/L ABG Total CO2 28 H (19-24) mmol/L Sodium (137-145) mmol/L BUN (9-20) mg/dL Creatinine (0.66-1.25) mg/dL Ferritin (22.0-322.0) ng/mL ALT (4-49) U/L Total Protein (6.3-8.2) g/dL Albumin (3.5-5.0) g/dL Crossmatch Assessment and Plan (1) Morbid (severe) obesity due to excess calories Current Visit: Yes Status: Acute Code(s): E66.01 - MORBID (SEVERE) OBESITY DUE TO EXCESS CALORIES SNOMED Code(s): 629569456 (2) BMI 45.0-49.9, adult Current Visit: Yes Status: Acute Code(s): Z68.42 - BODY MASS INDEX [BMI] 45.0-49.9, ADULT SNOMED Code(s): 617006391 (3) Inadequate dietary intake of protein Current Visit: Yes Status: Acute Code(s): E63.9 - NUTRITIONAL DEFICIENCY, UNSPECIFIED SNOMED Code(s): 117892028 (4) Tracheostomy sepsis Current Visit: Yes Status: Acute Code(s): J95.02 - INFECTION OF TRACHEOSTOMY STOMA SNOMED Code(s): 676947542 (5) Coronavirus infection Current Visit: Yes Status: Acute Code(s): B34.2 - CORONAVIRUS INFECTION, UNSPECIFIED SNOMED Code(s): 694260472 (6) Hypoxia Current Visit: Yes Status: Acute Code(s): R09.02 - HYPOXEMIA SNOMED Code(s): 899886600 (7) Pneumonia due to COVID-19 virus Current Visit: Yes Status: Acute Code(s): U07.1 - COVID-19; J12.82 - Pneumonia due to coronavirus disease 2019 SNOMED Code(s): 194710110580494886
[2021-08-17] MEDS: SODIUM CHLORIDE 0.9% 1,000 ML IV SCH (17:13)
[2021-08-17 18:13] LABS: Glucose,Whole Blood 101 mg/dL (75-99)
--- NOTE | 2021-08-17 18:32 | P.PN ---
Subjective Progress Note Date: 08/17/21 Principal diagnosis: COVID-19 bilateral pneumonia Acute hypoxic respiratory failure 31 years old -Citizen Of [place] man with no significant past medical history presents with dyspnea which started yesterday associated with fever and coughing. Patient tested positive for covid earlier on Thursday after he felt with fever and cough on Thursday but at that time he was not dyspneic. He denies chest pain or abdominal pain but he has diarrhea on and off. No vomiting. He is saturating 89% on 6 L oxygen via nasal cannula, afebrile. Tachypneic with a breathing rate at 23. CBC, is unremarkable. INR is normal at 1.0. Sodium is 1:30, creatinine normal at 1.1, glucose 103. AST is mildly elevated 106 and ALT mildly elevated 106. Elevated lactate dehydrogenase 2600 and C-reactive protein 20.3. Cholelithiasis positive EKG shows sinus tachycardia and [address]-T changes Chest x-ray showing bilateral infiltrates 08/03/2021 patient is seen and evaluated ; continues to have difficulty breathing secondary to COVID-19 pneumonia. Earlier this morning at around 4 AM, the patient had a spell where he had an increased cough and in between he was unable to catch his breath and the patient desaturated. At that point, he was placed on BiPAP. He was quite hypoxic and he gradually build himself up and currently is back on 14/7 cm of water with an FiO2 of 90%. He is currently holding his BiPAP mask on his face. He is comfortable. He is also willing to consider to go back on high flow oxygen in addition to 100% on a beta facemask. --He remains on Decadron 6 mg on a daily basis. He remains on Baricitinib 4 mg on a daily basis. He remains on Lovenox 40 mg subcu on a daily basis. Labs are reviewed and reveal white cell count is at 9.8 with hemoglobin of 12.1. His d-dimer from 08/01/2021 was 1.87. Creatinine is at 1.09 with a BUN of 30 and the rest of the electrodes are all within normal limits. He is afebrile. He is tolerating his diet as the patient is able to eat in between different modes of oxygen delivery. He did have a spike of temperature of 11.6 yesterday. He is tachypneic his breathing is labored. Continue BiPAP treatment alternating with high flow oxygen at 6 L with an FiO2 of 90% Will monitor this patient on the medical floor and transferred to the intensive care unit if there is any worsening 08/04/2021 the patient is somewhat better compared to yesterday. - The patient gradually improved since then and currently is on high flow oxygen and 60 L of FiO2 of 90% in addition to 100% nonrebreather facemask; He remains on Decadron 6 mg on a daily basis and addition to Baricitinib 4 mg by mouth rachna; Lovenox and the dose is adjusted to 60 mg subcu every 12 hours because of an elevated d-dimer of 14.3. Meanwhile, his LDH still elevated at 2954 and a CRP still elevated at 13.8. Platelet electrodes are all within normal limits. His white cell count of 15.3 with hemoglobin of 13.4. Chest x- ray from today was reviewed and was compared to the earlier chest x-ray showed improvement in the inspiratory effort and there is also improvement in the right basilar consolidation. However there is still persistent and diffuse breath and pulmonary infiltrates perihilar and lower lobes bilaterally. Patient is awake and alert. No altered mentation. No other new complaints otherwise for now. 08/16/2021 The patient was admitted to the hospital with coronavirus associated pneumonia; moved to the intensive care unit on August 06, and intubated on the same day. He remains on the mechanical ventilator. --On August 14, the patient underwent tracheostomy. The PEG tube was attempted, but was not able to be done. Ventilator settings include the volume assist control mode White count 15.7, hemoglobin 7.5, hematocrit 23.9, platelet count 429,000. D- dimer was 5.08. Sodium 137, potassium 4.7, chlorides 107, CO2 24, anion gap is 6, BUN 41, creatinine 1.30. Albumin is 2.8. C-reactive protein is 3.8. Chest x-ray shows diffuse bilateral infiltrates. No change in chest x-ray compared to prior x-rays. Patient remains in intensive care unit with critical care on board; remains on IV Zosyn and Levaquin; cultures are negative so far; critical coronary recommending to continue with current management at this time 08/17/2021 Patient is seen and evaluated in ICU; remains on the mechanical ventilator; patient underwent tracheostomy. Arterial blood gases show pO2 of 81, pCO2 48, and a pH is 7.36. The patient's on saline at 20 mL an hour, fentanyl at 4 mcg/kg/h, propofol at 75 mcg/kg/m, Nimbex at 3 g kilogram per minute, and tube feedings with Nepro at 14 mL an hour, which is goal. Last night, because of bleeding around the tracheostomy site, patient received 1 unit of packed red blood cells, 1 unit of platelets, and protamine sulfate. lab review revealsWhite count is 15.2, hemoglobin 7.7, hematocrit 24.6, and platelet count 348,000. Sodium 135, potassium 4.7, chlorides 107, CO2 25, anion gap 3, BUN 32, creatinine 1.26. Chest x-ray from today, shows stable bilateral pulmonary infiltrates. patient underwent a trial of discontinuing Nimbex; it was restarted once patient became tachypneic Objective - Vital Signs Vital signs: Vital Signs Temp 98.5 F 08/17/21 04:00 Pulse 78 08/17/21 07:00 Resp 38 H 08/17/21 07:00 BP 118/65 08/16/21 21:12 Pulse Ox 94 L 08/17/21 07:00 Intake & Output 08/16/21 08/17/21 08/17/21 18:59 06:59 18:59 Intake Total 2348.949 2262.436 Output Total 1350 1822 Balance 998.949 440.436 Weight 124.4 kg 123.5 kg Intake: IV 423 299 Levofloxacin 250Mg-D5w 50 Pmx 250 mg In Dextrose/ Water 1 50ml.bag @ 50 mls /hr IVPB Q24H [facility] Rx#: [id number] Piperacillin-Tazobactam 3 100 .375 gm In Sodium Chloride 0.9% 100 ml @ 25 mls/hr IVPB Q8H [facility] Rx#: [id number] Sodium Chloride 0.9% 1, 240 260 000 ml @ 20 mls/hr IV . Q24H [facility] Rx#:[id number] pressure bag .9 33 39 Intake, IV Titration 4807.106 9893.436 Amount Cisatracurium 200 mg In 143.514 168.637 Sodium Chloride 0.9% 180 ml @ 1 MCG/KG/MIN 7.893 mls/hr IV .Q24H [facility] Rx#: [id number] Heparin Sod,Pork in 0.45% 307.639 NaCl 25,000 unit In 0.45 % NaCl 1 250ml.bag @ 18 UNITS/KG/HR 22.392 mls/hr IV .[id number] [facility] Rx#: [id number] fentaNYL (PF). 2,500 mcg 500 721.799 In Sodium Chloride 0.9% 200 ml @ 0.5 MCG/KG/HR 6. 577 mls/hr IV .Q24H [facility] Rx#:[id number] propofoL 1,000 mg In 597.796 400 Empty Bag 1 bag @ Titrate IV .Q0M [facility] Rx#: [id number] Tube Feeding 197 70 Blood Product 573 Platelet [employer] [place] [place] 263 Cnt1 Unit [id number] Rc As-1 Unit 310 [id number] Other 180 30 Output: Gastric Drainage 200 Urine 1350 1620 Estimated Blood Loss 2 Other: Voiding Method Indwelling Catheter Indwelling Catheter ABP, PAP, CO, CI - Last Documented Arterial Blood Pressure 114/57 - Exam GENERAL: The patient is alert and oriented x3, not in any acute distress. Well developed, well nourished. HEENT: Pupils are round and equally reacting to light. EOMI. No scleral icterus. No conjunctival pallor. Normocephalic, atraumatic. No pharyngeal erythema. No thyromegaly. CARDIOVASCULAR: S1 and S2 present. No murmurs, rubs, or gallops. -PULMONARY: Chest is clear to auscultation, no wheezing bilateral crepitation, tachypnea ABDOMEN: Soft, nontender, nondistended, normoactive bowel sounds. No palpable organomegaly. MUSCULOSKELETAL: No joint swelling or deformity. EXTREMITIES: No cyanosis, clubbing, or pedal edema. NEUROLOGICAL: Gross neurological examination did not reveal any focal deficits. SKIN: No rashes. No petechiae - Labs CBC & Chem 7: 08/17/21 04:25 08/17/21 04:25 Labs: Abnormal Lab Results - Last 24 Hours (Table) 08/16/21 08/16/21 08/16/21 Range/Units 04:19 18:35 18:46 WBC 21.1 H (3.8-10.6) k/uL RBC 2.77 L (4.30-5.90) m/uL Hgb 7.9 L (13.0-17.5) gm/dL Hct 25.2 L (39.0-53.0) % MCHC (31.0-37.0) g/dL RDW 19.6 H (11.5-15.5) % Plt Count 464 H (150-450) k/uL Neutrophils # (Manual) (1.3-7.7) k/uL Metamyelocytes # (Man) (0) k/uL Myelocytes # (Manual) (0) k/uL ABG pCO2 (35-45) mmHg ABG pO2 (83-108) mmHg ABG HCO3 (21-25) mmol/L ABG Total CO2 (19-24) mmol/L Sodium (137-145) mmol/L BUN (9-20) mg/dL Creatinine (0.66-1.25) mg/dL Ferritin 1065.0 H (22.0-322.0) ng/mL ALT (4-49) U/L Total Protein (6.3-8.2) g/dL Albumin (3.5-5.0) g/dL Crossmatch See Detail 08/16/21 08/17/21 08/17/21 Range/Units 22:05 04:25 04:25 WBC 20.4 H 15.2 H (3.8-10.6) k/uL RBC 2.84 L 2.69 L (4.30-5.90) m/uL Hgb 8.1 L 7.7 L (13.0-17.5) gm/dL Hct 26.3 L 24.6 L (39.0-53.0) % MCHC 30.8 L (31.0-37.0) g/dL RDW 18.7 H 19.5 H (11.5-15.5) % Plt Count (150-450) k/uL Neutrophils # (Manual) 17.30 H 13.20 H (1.3-7.7) k/uL Metamyelocytes # (Man) 0.82 H 0.46 H (0) k/uL Myelocytes # (Manual) 0.20 H (0) k/uL ABG pCO2 (35-45) mmHg ABG pO2 (83-108) mmHg ABG HCO3 (21-25) mmol/L ABG Total CO2 (19-24) mmol/L Sodium 135 L (137-145) mmol/L BUN 32 H (9-20) mg/dL Creatinine 1.26 H (0.66-1.25) mg/dL Ferritin (22.0-322.0) ng/mL ALT 91 H (4-49) U/L Total Protein 5.3 L (6.3-8.2) g/dL Albumin 2.6 L (3.5-5.0) g/dL Crossmatch 08/17/21 Range/Units 06:20 WBC (3.8-10.6) k/uL RBC (4.30-5.90) m/uL Hgb (13.0-17.5) gm/dL Hct (39.0-53.0) % MCHC (31.0-37.0) g/dL RDW (11.5-15.5) % Plt Count (150-450) k/uL Neutrophils # (Manual) (1.3-7.7) k/uL Metamyelocytes # (Man) (0) k/uL Myelocytes # (Manual) (0) k/uL ABG pCO2 48 H (35-45) mmHg ABG pO2 81 L (83-108) mmHg ABG HCO3 27 H (21-25) mmol/L ABG Total CO2 28 H (19-24) mmol/L Sodium (137-145) mmol/L BUN (9-20) mg/dL Creatinine (0.66-1.25) mg/dL Ferritin (22.0-322.0) ng/mL ALT (4-49) U/L Total Protein (6.3-8.2) g/dL Albumin (3.5-5.0) g/dL Crossmatch Assessment and Plan Assessment: Acute bilateral Covid pneumonia Acute hypoxic respiratory failure Elevated inflammatory markers Obesity with BMI of 49.8 Plan: This is a pleasant 31 years old male who presents with bilateral Covid pneumonia and hypoxia. Continue with oxygen as needed Continue With dexamethasone and Lovenox. Continue with vitamin C, vitamin D and zinc c/w baricitinib Pulmonary consult Labs and medication were reviewed.. Continue same treatment. Continue with symptomatic treatment. Resume home medication. Monitor lytes and vitals. DVT and GI prophylaxis. Further recommendations depends on the clinical course of the patient DVT prophylaxis: Subcutaneous Lovenox GI Prophylaxis: Pepcid Prognosis is guarded
[2021-08-17 23:08] LABS: Glucose,Whole Blood 106 mg/dL (75-99)
[2021-08-18] MEDS: fentaNYL (PF). 2,500 MCG in SODIUM CHLORIDE 0.9% 200 ML IV SCH ×6 (02:55→22:10)
[2021-08-18] MEDS: ARTIFICIAL TEARS-HYPROMELLOSE DROPS 15 ML BTL BOTH EYES SCH ×6 (03:10→23:35)
[2021-08-18] MEDS: HEPARIN SOD,PORK IN 0.45% NACL 25,000 UNIT in 0.45% NACL 1 250ML.BAG IV SCH ×2 (03:11→10:45)
[2021-08-18] MEDS: PIPERACILLIN-TAZOBACTAM 3.375 GM in SODIUM CHLORIDE 0.9% 100 ML IVPB SCH ×3 (03:16→19:57)
[2021-08-18 05:20] LABS: Glucose,Whole Blood 102 mg/dL (75-99)
[2021-08-18 05:26] LABS: ABG Base Excess 0.7 mmol/L; ABG HCO3 27 mmol/L (21-25); ABG Oxygen Saturation 88.4 % (94-97); ABG PCO2 55 mmHg (35-45); ABG PO2 61 mmHg (83-108); ABG TCO2 29 mmol/L (19-24); Allen Test Performed? Yes
[2021-08-18] MEDS: INSULIN ASPART (NovoLOG) 100 UNIT/ML VIAL SQ SCH ×3 (05:29→18:30)
[2021-08-18] MEDS: CLEVIDIPINE BUTYRATE 25 MG in EMPTY BAG 1 BAG IV SCH ×4 (05:42→09:51)
[2021-08-18 05:43] LABS: Anisocytosis Slight; HCT 27.5 % (39.0-53.0); HGB 8.7 gm/dL (13.0-17.5); Hypochromasia Moderate; MCH 29.5 pg (25.0-35.0); MCHC 31.5 g/dL (31.0-37.0); MCV 93.6 fL (80.0-100.0); Macrocytosis Slight; Mean Platelet Volume 8.7; Platelet Count 349 k/uL (150-450); Poikilocytosis Slight; RBC 2.94 m/uL (4.30-5.90); RDW 19.6 % (11.5-15.5)
[2021-08-18 06:03] LABS: ALT 94 U/L (4-49); AST 33 U/L (17-59); African American GFR (CKD) >90 (>60 ml/min/1.73 sqM); Albumin 3.1 g/dL (3.5-5.0); Alkaline Phosphatase 74 U/L (38-126); Anion Gap 6 mmol/L; Blood Urea Nitrogen 28 mg/dL (9-20); Calcium 9.2 mg/dL (8.4-10.2); Carbon Dioxide 26 mmol/L (22-30); Chloride 105 mmol/L (98-107); Glucose 101 mg/dL (74-99); Non-African American GFR(CKD) 85 (>60 ml/min/1.73 sqM); Potassium 4.8 mmol/L (3.5-5.1); Sodium 137 mmol/L (137-145); Total Bilirubin 0.7 mg/dL (0.2-1.3); Total Protein 6.1 g/dL (6.3-8.2)
[2021-08-18] MEDS: CISATRACURIUM 200 MG in SODIUM CHLORIDE 0.9% 180 ML IV SCH ×2 (07:06→14:55)
[2021-08-18] MEDS: ALBUTEROL HFA INHALER INHALATION PRN ×2 (07:33→11:35)
[2021-08-18] MEDS: ASCORBIC ACID 500 MG TAB PO SCH (08:05)
[2021-08-18] MEDS: DEXAMETHASONE SOD PHOSPHATE 10 MG/ML 1 ML VIAL IV SCH ×2 (08:05→19:58)
[2021-08-18] MEDS: PANTOPRAZOLE 40 MG/10 ML VIAL IVP SCH ×2 (08:05→19:58)
[2021-08-18] MEDS: ZINC SULFATE 220 MG CAP PO SCH (08:05)
--- NOTE | 2021-08-18 08:05 | XR ---
EXAMINATION TYPE: XR chest 1V portable DATE OF EXAM: 08/18/2021 COMPARISON: 08/17/2021 HISTORY: 31 years Male. STUDY INDICATION GIVEN: per dr kapadia . Patient on vent. TECHNIQUE: Portable AP chest radiograph IMPRESSION: Tracheostomy and enteric tubes are stable. Enteric tube side holes are in the distal esophagus recomm end advancing . Tip of left upper extremity PICC projects in the SVC. Mild to moderate interstitial edema with patchy bibasilar left greater than right airspace disease sl ightly improved. There may be small bilateral pleural effusions though appearance is not significantly changed since p rior. The heart is enlarged.. No acute osseous abnormality.
[2021-08-18] MEDS: METOPROLOL TARTRATE 25 MG TAB PO SCH ×2 (08:06→19:58)
[2021-08-18] MEDS: amLODIPine 5 MG TAB PO SCH (08:06)
[2021-08-18] MEDS: CHOLECALCIFEROL 25 MCG (1000 IU) TABLET PO SCH (08:06)
[2021-08-18] MEDS: CHLORHEXIDINE GLUCONATE 15 ML CUP MUCOUS MEM SCH ×2 (08:08→19:57)
[2021-08-18] MEDS: LEVOFLOXACIN 250MG-D5W PMX 250 MG in DEXTROSE/WATER 1 50ML.BAG IVPB SCH (08:09)
[2021-08-18] MEDS: hydrALAZINE HCL 25 MG TAB PO PRN ×3 (08:37→22:26)
[2021-08-18 08:59] LABS: Band Neutrophils % 6 %; Lymphocytes # (M) 1.03 k/uL (1.0-4.8); Metamyelocytes # (M) 0.59 k/uL (0); Metamyelocytes % 4 %; Monocytes # (M) 0.59 k/uL (0-1.0); Myelocytes # (M) 0.29 k/uL (0); Myelocytes % 2 %; Neutrophils % (M) 79 %; Nucleated Red Blood Cells 1 /100 WBC (0-0); Total Cells Counted 200; WBC 14.7 k/uL (3.8-10.6)
[2021-08-18 09:01] LABS: Basophilic Stippling Present; Polychromasia Present
[2021-08-18] MEDS ORDERED: LABETALOL 5 MG/ML VIAL MDV IVP SCH (09:45)
[2021-08-18] MEDS: LABETALOL 5 MG/ML VIAL MDV IVP PRN ×2 (10:39→15:52)
[2021-08-18 10:42] LABS: Prothrombin Time 10.7 sec (9.0-12.0)
[2021-08-18 10:43] LABS: Partial Thromboplastin Time 20.6 sec (22.0-30.0)
[2021-08-18 11:34] LABS: Glucose,Whole Blood 107 mg/dL (75-99)
--- NOTE | 2021-08-18 12:51 | P.PN ---
Subjective Progress Note Date: 08/18/21 Principal diagnosis: Coronavirus associated pneumonia. Acute hypoxic respiratory failure secondary to COVID-19 pneumonia On today's evaluation patient is seen in follow-up on 08/05/2021, he is currently on BiPAP support with pressure of 14/8, and the pulse ox is 87-93%, patient does alternate with Airvo at 60 L and 90% FiO2, and at bedtime and as needed for periods of time during the day he does go on BiPAP. He is awake and alert, he sitting up on the edge of the bed, dyspneic with exertion, but no acute distress, he remains on Bicitra neb, he is on IV Decadron, Lovenox 60 mg twice daily, he is on 0.9 normal saline at a rate of 50 ML per hour, he is on multivitamins, his latest chest x-ray from 08/04/2021 showed improved inspiration, improved right basilar focal consolidation, and persistent bilateral diffuse reticulonodular opacities in the lower lungs consistent with known COVID-19 infection. Today's labs have been reviewed, his white blood cell count is 19.1, hemoglobin is 13.1, d-dimer is 14.3, sodium is 133, the rest of electrolytes and renal profile were fairly unremarkable, his inflammatory markers are relatively stable and LDH is 2935, and CRP is 18.2, pro calcitonin level is slightly improved and is down to 0.40. His blood and sputum cultures have shown no growth. He did have a fever with a temp of 101.7F. Currently afebrile. No complaints of chest discomfort. No hemoptysis, his lower extremity Dopplers were negative for DVT. On 08/06/2021 patient seen in follow-up on medical surgical floor. Patient still requiring high flow oxygen per Airvo, and he is requiring BiPAP support most of time with pressures of 14/88 and FiO2 of 100% and his pulse ox is 87- 90%, he continues to have fevers, with a T-max 101.7F, overnight his fever pa ttern has improved and he still having some low-grade fevers. He is short of breath with any exertion. He continues on Decadron 6 mg daily, Baricitinib, and Lovenox at intermediate dosing at 0.5 mg/kg twice daily which is above 60 mg twice daily for this patient's weight. His d-dimer is down to 8.58 on today's labs, improved although still significantly elevated, lower extremity Dopplers were negative for any evidence of DVT. There is concern for superimposed bacterial infection, especially in view of fever, and elevated white blood cell count. Today's white count is 22.1, hemoglobin is 13, sodium is 131, rest of electrolytes were within normal limits, B1 is 27 creatinine 0.89, pro Level Was Borderline at 0.40, Also Suggestive of a Possible Super Imposed Bacterial Infection. Patient was transferred yesterday to the ICU, and around 2 AM this morning, I was notified about this patient is not doing well. Patient was noted to be desaturating, anxious, tachycardic, and patient did not improve much with Precedex. Hence I recommended intubating the patient. 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 His ABG showed a pO2 of 99 pCO2 57 pH of 7.27. Patient is on multiple drips including propofol at 50 fentanyl at 0.25 mcg/kg/h, Nimbex at 1 and he is on IV fluid 0.9 normal saline at 50 mL per hour. Patient was actually intubated around 2:45 AM this morning. Reviewed his chest x-ray, clearly showed bilateral infiltrates, consistent with COVID-19 pneumonia. His endotracheal tube is in the proper position. And his orogastric tube is also in the proper position. After reviewing his ABG, I cut down his FiO2 to 90%, may consider going higher on the PEEP, may also consider placing the patient in prone position. I have consulted interventional radiology for a PICC line placement, and I went ahead and placed a right radial arterial line. Patient will be off heparin for a couple of hours prior to the PICC line placement. I reviewed his CT angiogram of the chest from yesterday, the minor evidence of pulmonary embolism is not clinically impressive, however nonetheless the patient will need to be heparinized noticing that he has elevated d-dimer and the fact that he has COVID-19 pneumonia which is a major provoking factor for thrombus embolic disease. WBC count today is 19 hemoglobin is 11.9 his PTT was therapeutic initially at 50.1, and this morning it is 37.9, patient received a heparin bolus. Electrolytes are normal potassium is 5.1 BUN is 28 creatinine is 1.03. Medications espinoza, patient is on albuterol, amlodipine, vitamin C, Peridex, vitamin D, Nimbex, Decadron 6 mg IV push daily, fentanyl, heparin, hydralazine, metoprolol, lisinopril, Protonix, Zosyn, and zinc. Used to be on baricitimib, however because of his leukocytosis and elevat ed pro calcitonin, this was discontinued, and we started the patient empirically on antibiotics. Blood cultures and sputum cultures so far are negative. And they seem to be nondiagnostic so far. At one point, the patient was spiking fevers, his T-max yesterday was 99.1. The patient is seen today 08/08/2021 and follow-up in the intensive care unit. He remains intubated, sedated, paralyzed and on the mechanical ventilator. Current settings are assist control at a rate of 38, tidal volume 375, FiO2 100% and a PEEP of 18. Peak pressures of 35, plateau of 33. Morning blood gases revealed a PaO2 of 205, pCO2 56, pH 7.22. He remains in sinus tachycardia currently at 104. He is currently on propofol 50 mcg/kg/m, fentanyl at 0.25 mcg/kg per hour, Nimbex at 1 mcg/kg/m, heparin drip per weight-based protocol. 0.9 normal saline at 125 ML's per hour. Staff did attempt to prone the patient yesterday however he had a significant cuff leak, significant desaturations and had to be placed back in supine position almost immediately. Chest x-ray reveals continued diffuse fine interstitial infiltrates, left greater than right with possibly some slight improvement in aeration. Blood cultures reveal no growth. Sputum cultures reveal no growth. White count 15.1. Hemoglobin 9.8. Platelets 230. Lymphocytes 0.8. Sodium 133. Potassium 5.6. Bicarb 21. Creatinine 2.88. Blood glucose 118. AST 39. ALT 61. He is continued on Decadron, Zosyn, vitamin supplements. He is currently afebrile. Not requiring pressors. He is being nourished with vital AF at 20 ML's per hour. Reevaluated today on 08/09/2021, patient remains in the ICU, intubated and mechanically ventilated, sedated and paralyzed. Ventilator settings are assist control rate of 38 tidal volume 375 FiO2 65% PEEP increased to 20 this morning. ABG earlier on a PEEP of 18 showed a pO2 of 66 pCO2 of 56 pH of 7.35. Patient is on Nimbex at 2 mcg/kg/m fentanyl 0.5 mcg/kg/h propofol at 55 mcg/kg/m still on a bicarb drip at 75 mL per hour. Patient is on enteral feeding using vital AF 28/28. Patient remains on Decadron at 6 mg IV push twice a day. Remains on heparin. Remains on the COVID-19 cocktail. Remains on albuterol, remains on GI prophylaxis. Insulin as per protocol, metoprolol Pavithra and empirically on Zosyn for his elevated pro calcitonin level. Chest x-ray continues to show bilateral interstitial infiltrates consistent with COVID-19 pneumonia not much of a change noted on the chest x-ray today. Labs, showed relatively normal CBC. PTT is 41.6, patient is on heparin, electrolytes are normal renal profile showed slight improvement to BUN is 53 creatinine 2.22. Repeat pro calcitonin yesterday was 5.5, last LDH was 2931, and C-reactive protein is elevated at 31.6 Reevaluated today on 08/10/2021, remains in the ICU intubated and mechanically ventilated, sedated and paralyzed. Thank you the settings are assist control rate 38 tidal volumes at 375 FiO2 50% PEEP of 20, peak airway pressure 39 left total pressure is 37 ABG showed a pO2 of 65 pCO2 52 pH of 7.35. Remains on multiple drips including Nimbex at 2 mcg/kg/m, propofol at 70 micrograms per kilo per minute fentanyl at 1.5 mcg/kg/m and cutting down to 1 mcg/kg/m. Remains on enteral feeding with vital AF 28/28. Remains on Decadron 6 mg twice a day remains on Zosyn and his last procalcitonin was 5.5 Chest x-ray continues to show evidence of bilateral infiltrates left seems to be more involved than the right. Labs today showed d-dimer of 1.78 down from 8.58, patient remains on heparin. CT of the chest showed nonocclusive thromboembolic disease. LDH is down to 1114 from 2931 and C-reactive protein is elevated at 19.9 but much better compared to a few days ago where it was about 32. WBC count is 11.8 hemoglobin is 8.4. Platelets are 317,000 Patient was reevaluated today on 08/11/21, patient remains in the ICU, intubated and mechanically ventilated. Patient is sedated and paralyzed, he is on Nimbex at 1.5 mcg/kg/m, fentanyl at 1 mcg/kg/h, propofol is 65 mcg/kg/h, he is also on heparin drip and he is on IV fluid at 65 mL per hour in the form of 0.9 normal saline. Patient is receiving enteral feeding vital AF Ventilator settings include assist control rate of 38 tidal volume 375 FiO2 60% PEEP of 20, ABG showed a pO2 of 58 pCO2 of 55 pH of 7.31, and this was on 55%, hence the FiO2 was increased to 60%. Patient desaturates even with a PEEP down to 18, hence I'm keeping him on a PEEP of 24 now. Chest x-ray shows bilateral infiltrates, however the left lower lobe seems to be more involved than the rest of the lungs, more infiltrate noted in the left lower lobe area. Patient remains on Zosyn, he is off baricitinib, mostly because of his elevated pro calcitonin level, and he was placed on antibiotics empirically. And will add Levaquin empirically in addition to Zosyn. Cultures so far are nondiagnostic. Patient remains on Decadron 6 mg twice a day. And he is also on the COVID-19 cocktail. Patient remains on the COVID-19 cocktail, and he remains on GI and DVT prophylaxis Progress note dated 08/12/2021. 31-year-old black male, again seen in the intensive care unit, room 262. The patient was admitted on July 31 with coronavirus associated pneumonia. He was moved to the intensive care unit on August 06 and intubated on the same day for worsening respiratory failure with hypoxemia. Currently, the patient remains on the mechanical ventilator. He is on the volume assist control mode, rate 38, tidal volume 375, FiO2 60%, to be decreased to 50%, and PEEP of 20. Arterial blood gases show pO2 of 70, pCO2 of 49, and a pH is 7.36. The patient is receiving saline at 50 mL an hour, propofol 60 mcg/kg/m, Nimbex at 2 mcg/kg/m with train of four monitoring, heparin via weightbase protocol, fentanyl at 2 mcg/kg/h, and vital AF at goal, which is 28 mL an hour. White count 15, hemoglobin 7.8, hematocrit 26.1, and platelet count 433,000. D-dimer was 1.68. Sodium 140, potassium 5.3, chlorides 111, CO2 25, anion gap 4, BUN 60, and creatinine 1.73. LDH is 1160. C-reactive protein is 5.8. Chest x-ray shows diffuse bilateral infiltrates. This is consistent with his known diagnosis of coronavirus associated pneumonia. Endotracheal tube is about 3-1/2 cm above the tracheal delmer. Progress note dated 08/13/2021. 31-year-old black male, again seen in the intensive care unit, room 262. The patient was admitted to the hospital on July 31 with coronavirus associated pneumonia. He was moved to the intensive care unit on August 06, and intubated on the same day for worsening hypoxemic respiratory failure. The patient remains on mechanical ventilator. His ventilator settings include the volume assist control, rate 38, tidal volume 375, FiO2 currently 75%, with a PEEP of 20. He had blood gases done early in the morning showing a pO2 of 49, pCO2 of 62, and a pH is 7.26. That was when he was on 50% and when he was getting a bath. Subsequently, we increase his FiO2 to 100%, and he is now been weaned down to 75%. I did asked the respiratory therapist to repeat an ABG. The patient's currently receiving propofol at 75 mcg/kg/m, Nimbex at 2 mcg/kg/m, fentanyl at 3 mcg/kg/h, and heparin via weightbase protocol. He is getting saline at KVO, and tube feedings with Nepro at 14 mL an hour, which is goal. He remains on Zosyn and Levaquin. He is apparently scheduled for tracheostomy and PEG tube placement on Thursday. White count is 30, hemoglobin 9.5, hematocrit 31.7, platelet count 634,000. D-dimer is 2.68. Sodium 140, potassium 5.6, chlorides 108, CO2 27, anion gap 5, BUN 51, and creatinine 1.61. LDH is 1730. C-reactive protein is 4.1. Albumin is 3.1. Chest x-ray shows diffuse bilateral infiltrates, essentially unchanged. Progress note dated 08/14/2021. 31-year-old black male, again seen in the intensive care unit, room 262. The patient was admitted to the hospital on July 31 with coronavirus associated pneumonia. He was moved to the intensive care unit on August 06, and intubated on the same day for worsening oxygenation. The patient remains on the mechanical ventilator. Today, the patient will have a tracheostomy tube placed as well as a PEG tube placed. Current ventilator settings include the volume assist control mode, rate 38, tidal volume 375, FiO2 55%, and PEEP of 20. Blood gases on the same settings except for 40% FiO2, show a PaO2 of 49, pCO2 of 51, and a pH 7.37. When I was alerted about these blood gases, I increased the FiO2 from 40% up to 55%. Currently, saturations are in the low 90s. The patient's on Nimbex at 2 g kilogram per minute, propofol at 65 mcg/kg/m, 0.9 saline at 20 mL an hour, fentanyl at 2 mcg/kg/h, heparin via weightbase protocol, and tube feedings are currently on hold for anticipated tracheostomy and PEG tube today. White count 17.5, hemoglobin 7.7, hematocrit 25.1, and platelet count 462,000. Sodium 139, potassium 5.2, chlorides 108, CO2 24, anion gap 7, BUN 51, and crea tinine 1.77. Chest x-ray again shows diffuse bilateral infiltrates, which are essentially unchanged. Progress note dated 08/15/2021. 31-year-old black male, again seen in the ICU, room 262. The patient was admitted to the hospital on July 31 with coronavirus associated pneumonia. Because of worsening hypoxemia, he was moved to the intensive care unit on August 06. It's intubated on the same day. He remains on mechanical ventilator. Yesterday, he had a tracheostomy performed. A PEG tube was apparently attempted, but not able to be performed. He remains on the volume assist control mode with, with a rate of 38, tidal volume 375, FiO2 55%, any. Arterial blood gases show pO2 70, pCO2 37, and a pH is 7.4. The patient's currently on propofol at 75 mcg/kg/m, Nimbex at 2 mcg/kg/m, fentanyl at 2.5 mcg/kg/h, saline at 20 mL an hour, and he will be restarted on IV heparin. Unfortunately, there was no NG tube. It was removed during the attempted procedure yesterday, and the nurses have been having a hard time replacing it. We will try again today. White count 15.6, hemoglobin 7.4, hematocrit 23.7, and platelet count 404,000. PTT was 20.9. D-dimer 3.76. Sodium 137, potassium 4.9, chlorides 105, CO2 25, anion gap 7, BUN 49, and creatinine 1.59. Chest x- ray continues to show diffuse bilateral infiltrates, may be a bit improved. Progress note dated 08/16/2021. 31 yo black male, again seen in the intensive care unit, room 262. The patient was admitted to the hospital on July 31, with coronavirus associated pneumonia. Because of worsening hypoxemia, he was moved to the intensive care unit on August 06, and intubated on the same day. He remains on the mechanical ventilator. On August 14, the patient underwent tracheostomy. The PEG tube was attempted, but was not able to be done. Ventilator settings include the volume assist control mode, rate 38, tidal volume 375, FiO2 55%, and PEEP of 20. Blood gases show a PaO2 of 70, pCO2 of 52, and a pH of 7.34. The patient is currently on fentanyl, at 4 mcg/kg/h, propofol at 75 mcg/kg/m, Nimbex at 2 mcg/ kg/m, Nepro, at 14 mL an hour, which is goal, and saline at KVO. White count 15.7, hemoglobin 7.5, hematocrit 23.9, platelet count 429,000. D-dimer was 5.08. Sodium 137, potassium 4.7, chlorides 107, CO2 24, anion gap is 6, BUN 41, creatinine 1.30. Albumin is 2.8. C-reactive protein is 3.8. Chest x-ray shows diffuse bilateral infiltrates. No change in chest x-ray compared to prior x- rays. Progress note dated 08/17/2021. 31-year-old black male, seen again in the intensive care unit, room 262. The patient was admitted to the hospital on July 31, with coronavirus associated pneumonia. Because of worsening hypoxemia, he was moved to the intensive care unit on August 06 and intubated on the same day. He remains on the mechanical ventilator. On August 14, the patient underwent tracheostomy. The PEG tube was attempted, but could not be performed. Current ventilator settings include the volume assist control mode, rate 38, tidal volume 375, FiO2 50%, PEEP of 20, to be turned down to 15. Arterial blood gases show pO2 of 81, pCO2 48, and a pH is 7.36. The patient's on saline at 20 mL an hour, fentanyl at 4 mcg/kg/h, propofol at 75 mcg/kg/m, Nimbex at 3 g kilogram per minute, and tube feedings with Nepro at 14 mL an hour, which is goal. Last night, because of bleeding around the tracheostomy site, I gave the patient 1 unit of packed red blood cells, 1 unit of platelets, and protamine sulfate. The bleeding did stop. White count is 15.2, hemoglobin 7.7, hematocrit 24.6, and platelet count 348,000. Sodium 135, potassium 4.7, chlorides 107, CO2 25, anion gap 3, BUN 32, creatinine 1.26. Chest x-ray from today, shows stable bilateral pulmonary infiltrates. Progress note dated 08/18/2021. 31-year-old black male, again seen in room 262. He was admitted to the hospital on July 31 with coronavirus associated pneumonia. On August 06, because of worsening hypoxemic respiratory failure, the patient was moved to the ICU and intubated. On August 14, the patient underwent tracheostomy tube placement. A PEG tube was attempted, but could not be performed because of anatomic reasons. The patient remains on the volume assist control mode, rate 38, tidal volume 375, FiO2 50%, PEEP of 15. Blood gases show pO2 61 pCO2 55 and a pH is 7.30. The patient is currently on fentanyl at 4.5 mcg/kg/h, Nimbex at 3 mcg/kg/m, propofol at 75 mcg/kg/m, Cleveprex at 13 mg an hour Nepro, at 13 mL an hour which is goal. The patient did not tolerate a Nimbex holiday. Today regarding increased his labetalol, so that we can get him off the Cleveprex. We'll use 1 0-20 mg IV, every 2 hours, for systolic greater than 160 or mean arterial pressure greater than 100. Current laboratory data includes a white count of 14.7 in room 8.7 hematocrit 27.5 and a platelet count 349,000. Sodium potassium chloride CO2 all normal. Anion gap 6. BUN 28, creatinine 1.16. Albumin was 3.1. Chest x-ray continues to show diffuse bilateral patchy infiltrates. There is also the presence of the midline tracheostomy tube. Objective - Vital Signs Vital signs: Vital Signs Temp 98.6 F 08/18/21 08:00 Pulse 92 08/18/21 11:00 Resp 38 H 08/18/21 11:00 BP 126/63 08/18/21 10:00 Pulse Ox 89 L 08/18/21 11:00 Intake & Output 08/17/21 08/18/21 08/18/21 18:59 06:59 18:59 Intake Total 0506.960 2768.038 1445.538 Output Total 1525 1640 580 Balance 269.527 285.038 865.538 Weight 122.1 kg Intake: IV 306 253 115 Sodium Chloride 0.9% 1, 270 220 100 000 ml @ 20 mls/hr IV . Q24H [facility] Rx#:[id number] pressure bag .9 36 33 15 Intake, IV Titration 0679.110 0650.038 1156.538 Amount Cisatracurium 200 mg In 132.597 200 191.792 Sodium Chloride 0.9% 180 ml @ 1 MCG/KG/MIN 7.893 mls/hr IV .Q24H [facility] Rx#: [id number] Clevidipine Butyrate 25 35.233 159.133 mg In Empty Bag 1 bag @ 1 MG/HR 2 mls/hr IV .Q24H [facility] Rx#:[id number] Heparin Sod,Pork in 0.45% 10 NaCl 25,000 unit In 0.45 % NaCl 1 250ml.bag @ 8.19 UNITS/KG/HR 10 mls/hr IV .Q24H [facility] Rx#:[id number] fentaNYL (PF). 2,500 mcg 500 500.000 497.628 In Sodium Chloride 0.9% 200 ml @ 0.5 MCG/KG/HR 6. 577 mls/hr IV .Q24H [facility] Rx#:[id number] propofoL 1,000 mg In 495.930 677.805 297.985 Empty Bag 1 bag @ Titrate IV .Q0M [facility] Rx#: [id number] Tube Feeding 210 154 84 Other 150 105 90 Output: Urine 1525 1640 580 Other: Voiding Method Indwelling Catheter Indwelling Catheter ABP, PAP, CO, CI - Last Documented Arterial Blood Pressure 108/56 - Exam No acute distress, sedated and paralyzed, with a midline tracheostomy tube. HEENT examination is grossly unremarkable. Neck supple. Full range of motion. No adenopathy thyromegaly or neck vein distention. Cardiovascular examination reveals regular rhythm rate. S1-S2 normal. No S3 or S4. No discernible murmur noted. Heart sounds are distant. Heart rate 89 bpm. Lungs reveal coarse bilateral rhonchi. Breath sounds equal bilaterally. No wheezes or crackles. Saturations are 92% on 50% FiO2 and a PEEP of 20. Abdomen soft bowel sounds are heard. No masses or tenderness. Extremities are intact. No cyanosis clubbing or edema. Skin is without rash or lesion. Neurologic examination cannot be adequately assessed at this time given the level of sedation and paralysis. - Labs CBC & Chem 7: 08/18/21 05:15 08/18/21 05:15 Labs: Abnormal Lab Results - Last 24 Hours (Table) 08/16/21 08/17/21 08/17/21 Range/Units 18:46 18:11 23:07 WBC (3.8-10.6) k/uL RBC (4.30-5.90) m/uL Hgb (13.0-17.5) gm/dL Hct (39.0-53.0) % RDW (11.5-15.5) % Neutrophils # (Manual) (1.3-7.7) k/uL Metamyelocytes # (Man) (0) k/uL Myelocytes # (Manual) (0) k/uL Nucleated RBCs (0-0) /100 WBC APTT (22.0-30.0) sec ABG pH (7.35-7.45) ABG pCO2 (35-45) mmHg ABG pO2 (83-108) mmHg ABG HCO3 (21-25) mmol/L ABG Total CO2 (19-24) mmol/L ABG O2 Saturation (94-97) % BUN (9-20) mg/dL Glucose (74-99) mg/dL POC Glucose (mg/dL) 101 H 106 H (75-99) mg/dL ALT (4-49) U/L Total Protein (6.3-8.2) g/dL Albumin (3.5-5.0) g/dL Crossmatch See Detail 08/18/21 08/18/21 08/18/21 Range/Units 05:15 05:15 05:17 WBC 14.7 H (3.8-10.6) k/uL RBC 2.94 L (4.30-5.90) m/uL Hgb 8.7 L (13.0-17.5) gm/dL Hct 27.5 L (39.0-53.0) % RDW 19.6 H (11.5-15.5) % Neutrophils # (Manual) 12.40 H (1.3-7.7) k/uL Metamyelocytes # (Man) 0.59 H (0) k/uL Myelocytes # (Manual) 0.29 H (0) k/uL Nucleated RBCs 1 H (0-0) /100 WBC APTT (22.0-30.0) sec ABG pH (7.35-7.45) ABG pCO2 (35-45) mmHg ABG pO2 (83-108) mmHg ABG HCO3 (21-25) mmol/L ABG Total CO2 (19-24) mmol/L ABG O2 Saturation (94-97) % BUN 28 H (9-20) mg/dL Glucose 101 H (74-99) mg/dL POC Glucose (mg/dL) 102 H (75-99) mg/dL ALT 94 H (4-49) U/L Total Protein 6.1 L (6.3-8.2) g/dL Albumin 3.1 L (3.5-5.0) g/dL Crossmatch 08/18/21 08/18/21 08/18/21 Range/Units 05:21 10:00 11:33 WBC (3.8-10.6) k/uL RBC (4.30-5.90) m/uL Hgb (13.0-17.5) gm/dL Hct (39.0-53.0) % RDW (11.5-15.5) % Neutrophils # (Manual) (1.3-7.7) k/uL Metamyelocytes # (Man) (0) k/uL Myelocytes # (Manual) (0) k/uL Nucleated RBCs (0-0) /100 WBC APTT 20.6 L (22.0-30.0) sec ABG pH 7.30 L (7.35-7.45) ABG pCO2 55 H (35-45) mmHg ABG pO2 61 L (83-108) mmHg ABG HCO3 27 H (21-25) mmol/L ABG Total CO2 29 H (19-24) mmol/L ABG O2 Saturation 88.4 L (94-97) % BUN (9-20) mg/dL Glucose (74-99) mg/dL POC Glucose (mg/dL) 107 H (75-99) mg/dL ALT (4-49) U/L Total Protein (6.3-8.2) g/dL Albumin (3.5-5.0) g/dL Crossmatch Assessment and Plan Assessment: Acute hypoxemic respiratory failure secondary to coronavirus associated pneumonia, status post intubation and mechanical ventilation on August 06. Status post tracheostomy tube insertion, 08/14/2021. Unfortunately, PEG tube could not be placed on that same day. Acute respiratory distress syndrome. Elevated inflammatory marker secondary to coronavirus infection. Acute/subacute pulmonary embolism. Elevated liver enzymes secondary to coronavirus infection. Morbid obesity. Plan: Plan dated 08/12/2021. We'll attempt to get the patient off of the paralytic if possible. I gave instructions to the nurse. In addition, we will continue with the propofol and the fentanyl for now. We'll reduce the FiO2 down from 60%, down to 50%. I told the nurses and respiratory therapist except saturations in the mid 80s or higher . The patient will continue on heparin for now. Additional recommendations and suggestions are forthcoming. Prognosis is guarded. We will continue to follow this patient, and make recommendations where appropriate. Plan dated 08/13/2021. We're unable to get the patient off the paralytic. During his bath, his saturations dropped and his blood pressure went up. The nurses contacted me. I ordered the FiO2 to be increased to 100%, and also use labetalol IV for blood pressure control. At that point, he was on maximal dose Cleveprex. He is scheduled for a tracheostomy and PEG tube tomorrow. I think that's espinoza. We will repeat a blood gas and a few minutes. His FiO2 is been weaned down to 75%. Additional recommendations and suggestions are forthcoming. His medications are reviewed. He remains on Zosyn and Levaquin. Microbiology is as far all negative. Plan dated 08/14/2021. The patient's going to have a tracheostomy and PEG tube placed today by surgery. I think that will give him the best chance of full recovery. The patient's FiO2 was increased from 40%, up to 55%, when I was alerted about the morning blood gases. Patient remains on fentanyl, propofol, and Nimbex. We will resume tube feedings after 24 hours post placement of the feeding tube. Labs, x-rays, and medications all reviewed. Everything is appropriate at this time. The patient remains on antibiotics in the form of Zosyn and Levaquin. Microbiology thus far as all been negative. We will continue to follow make recommendations where appropriate. Prognosis is guarded. Plan dated 08/15/2021. The patient did have his tracheostomy tube placed on August 14. Unfortunately, the PEG tube was not able to be place. The patient will be started back on heparin. The nurses will attempt to place an NG tube. The patient remains on propofol, Nimbex, and fentanyl. We will restart tube feeds once the NG tube was replaced. Overall prognosis remains very guarded. Labs, x-rays, and medications are all reviewed. Everything does seem to be appropriate. We will continue to follow this patient, and make recommendations where appropriate. The patient remains on Zosyn and Levaquin, and all microbiologic studies as far have been negative. Plan dated 08/16/2021. The patient is doing about the same. The goal today would be to try to get him off the paralytic. The patient's labs, x-rays, and medications are all reviewed. Everything is appropriate. We will continue to follow closely and make every attempt the patient moving in the right direction and eventually off the ventilator. The patient remains on Zosyn and Levaquin. Microbiologic studies have been negative. Additional recommendations and suggestions are forthcoming. We will continue to follow this patient and make recommendations where appropriate. Plan dated 08/17/2021. Currently, the patient appears to be reasonably stable. We will drop the PEEP from 20 down to 15 cm water. Blood gases this morning were excellent. The patient did receive blood, platelets, and protamine. Because of bleeding around the tracheostomy site. Remains on fentanyl, propofol and Nimbex. He is getting nourished at goal. Yesterday, we attempted to stop the Nimbex, but we had to restart it because became very tachypnea. Additional recommendations and suggestions are forthcoming. Prognosis is guarded. The patient is very crit ically ill. Plan dated 08/18/2021. Currently, the blood pressures much better controlled on labetalol. In addition, yesterday, the PEEP was dropped from 20 cm of water to 15 cm water. The patient remains on appropriate medications and sedatives. The patient was not able to tolerate a holiday from the Nimbex. The patient continues on tube feeds. Additional recommendations and suggestions are forthcoming. We will continue to follow make recommendations were appropriate. Prognosis is guarded. This patient is very critically ill. Time with Patient: Greater than 30
--- NOTE | 2021-08-18 12:55 | P.PN ---
Subjective Progress Note Date: 08/18/21 CHIEF COMPLAINT: Covid pneumonia HISTORY OF PRESENT ILLNESS: The patient is a 31-year-old male admitted with pneumonia due to Covid. He is mechanically ventilated. No new issues noted. REVIEW OF ORGAN SYSTEMS: No fevers or chills. Mechanically ventilated. Morbid obesity with BMI 46.7. PHYSICAL EXAM: VITAL SIGNS: Stable GENERAL: Well-developed pleasant in no acute distress. HEENT: No scleral icterus. Extraocular movements grossly intact. Moist buccal mucosa. Tracheostomy intact CHEST: Mechanical ventilation with equal bilateral excursions. CARDIOVASCULAR: 2+ pulses ABDOMEN: Protuberant. No peritonitis. MUSCULOSKELETAL: No clubbing, cyanosis. NEURO: Sedated SKIN: Well perfused. PSYCH: sedated. LABS: Reviewed. WBC down from 22,000 to 15,000+ with leukocytosis now 14,700 today . Hemoglobin down 8.1-7.7 with anemia, now up to 8.7. ASSESSMENT: 1. Covid pneumonia 2. Inadequate oral intake with protein malnutrition 3. Status post gastrostomy tube placement 4. Status post tracheostomy 5. Morbid obesity due to excess calories, BMI 46.7 6. Anemia PLAN: 1. Continue supportive care due to Covid pneumonia 2. May reattempt gastrostomy tube placement 3. Continue TPN Objective - Vital Signs Vital signs: Vital Signs Temp 98.7 F 08/18/21 12:00 Pulse 92 08/18/21 12:45 Resp 22 08/18/21 12:45 BP 126/63 08/18/21 12:45 Pulse Ox 94 L 08/18/21 12:45 Intake & Output 08/17/21 08/18/21 08/18/21 18:59 06:59 18:59 Intake Total 5244.745 6864.038 1522.538 Output Total 1525 1640 780 Balance 269.527 285.038 742.538 Weight 122.1 kg Intake: IV 306 253 138 Sodium Chloride 0.9% 1, 270 220 120 000 ml @ 20 mls/hr IV . Q24H [facility] Rx#:[id number] pressure bag .9 36 33 18 Intake, IV Titration 7920.922 7356.038 1166.538 Amount Cisatracurium 200 mg In 132.597 200 191.792 Sodium Chloride 0.9% 180 ml @ 1 MCG/KG/MIN 7.893 mls/hr IV .Q24H [facility] Rx#: [id number] Clevidipine Butyrate 25 35.233 159.133 mg In Empty Bag 1 bag @ 1 MG/HR 2 mls/hr IV .Q24H [facility] Rx#:[id number] Heparin Sod,Pork in 0.45% 20 NaCl 25,000 unit In 0.45 % NaCl 1 250ml.bag @ 8.19 UNITS/KG/HR 10 mls/hr IV .Q24H [facility] Rx#:[id number] fentaNYL (PF). 2,500 mcg 500 500.000 497.628 In Sodium Chloride 0.9% 200 ml @ 0.5 MCG/KG/HR 6. 577 mls/hr IV .Q24H [facility] Rx#:[id number] propofoL 1,000 mg In 495.930 677.805 297.985 Empty Bag 1 bag @ Titrate IV .Q0M [facility] Rx#: [id number] Tube Feeding 210 154 98 Other 150 105 120 Output: Urine 1525 1640 780 Other: Voiding Method Indwelling Catheter Indwelling Catheter ABP, PAP, CO, CI - Last Documented Arterial Blood Pressure 105/54 - Labs CBC & Chem 7: 08/18/21 05:15 08/18/21 05:15 Labs: Abnormal Lab Results - Last 24 Hours (Table) 08/16/21 08/17/21 08/17/21 Range/Units 18:46 18:11 23:07 WBC (3.8-10.6) k/uL RBC (4.30-5.90) m/uL Hgb (13.0-17.5) gm/dL Hct (39.0-53.0) % RDW (11.5-15.5) % Neutrophils # (Manual) (1.3-7.7) k/uL Metamyelocytes # (Man) (0) k/uL Myelocytes # (Manual) (0) k/uL Nucleated RBCs (0-0) /100 WBC APTT (22.0-30.0) sec ABG pH (7.35-7.45) ABG pCO2 (35-45) mmHg ABG pO2 (83-108) mmHg ABG HCO3 (21-25) mmol/L ABG Total CO2 (19-24) mmol/L ABG O2 Saturation (94-97) % BUN (9-20) mg/dL Glucose (74-99) mg/dL POC Glucose (mg/dL) 101 H 106 H (75-99) mg/dL ALT (4-49) U/L Total Protein (6.3-8.2) g/dL Albumin (3.5-5.0) g/dL Crossmatch See Detail 08/18/21 08/18/21 08/18/21 Range/Units 05:15 05:15 05:17 WBC 14.7 H (3.8-10.6) k/uL RBC 2.94 L (4.30-5.90) m/uL Hgb 8.7 L (13.0-17.5) gm/dL Hct 27.5 L (39.0-53.0) % RDW 19.6 H (11.5-15.5) % Neutrophils # (Manual) 12.40 H (1.3-7.7) k/uL Metamyelocytes # (Man) 0.59 H (0) k/uL Myelocytes # (Manual) 0.29 H (0) k/uL Nucleated RBCs 1 H (0-0) /100 WBC APTT (22.0-30.0) sec ABG pH (7.35-7.45) ABG pCO2 (35-45) mmHg ABG pO2 (83-108) mmHg ABG HCO3 (21-25) mmol/L ABG Total CO2 (19-24) mmol/L ABG O2 Saturation (94-97) % BUN 28 H (9-20) mg/dL Glucose 101 H (74-99) mg/dL POC Glucose (mg/dL) 102 H (75-99) mg/dL ALT 94 H (4-49) U/L Total Protein 6.1 L (6.3-8.2) g/dL Albumin 3.1 L (3.5-5.0) g/dL Crossmatch 08/18/21 08/18/21 08/18/21 Range/Units 05:21 10:00 11:33 WBC (3.8-10.6) k/uL RBC (4.30-5.90) m/uL Hgb (13.0-17.5) gm/dL Hct (39.0-53.0) % RDW (11.5-15.5) % Neutrophils # (Manual) (1.3-7.7) k/uL Metamyelocytes # (Man) (0) k/uL Myelocytes # (Manual) (0) k/uL Nucleated RBCs (0-0) /100 WBC APTT 20.6 L (22.0-30.0) sec ABG pH 7.30 L (7.35-7.45) ABG pCO2 55 H (35-45) mmHg ABG pO2 61 L (83-108) mmHg ABG HCO3 27 H (21-25) mmol/L ABG Total CO2 29 H (19-24) mmol/L ABG O2 Saturation 88.4 L (94-97) % BUN (9-20) mg/dL Glucose (74-99) mg/dL POC Glucose (mg/dL) 107 H (75-99) mg/dL ALT (4-49) U/L Total Protein (6.3-8.2) g/dL Albumin (3.5-5.0) g/dL Crossmatch Assessment and Plan (1) Morbid (severe) obesity due to excess calories Current Visit: Yes Status: Acute Code(s): E66.01 - MORBID (SEVERE) OBESITY DUE TO EXCESS CALORIES SNOMED Code(s): 094356065 (2) BMI 45.0-49.9, adult Current Visit: Yes Status: Acute Code(s): Z68.42 - BODY MASS INDEX [BMI] 45.0-49.9, ADULT SNOMED Code(s): 832535526 (3) Inadequate dietary intake of protein Current Visit: Yes Status: Acute Code(s): E63.9 - NUTRITIONAL DEFICIENCY, UNSPECIFIED SNOMED Code(s): 565830089 (4) Tracheostomy sepsis Current Visit: Yes Status: Acute Code(s): J95.02 - INFECTION OF TRACHEOSTOMY STOMA SNOMED Code(s): 408509832 (5) Coronavirus infection Current Visit: Yes Status: Acute Code(s): B34.2 - CORONAVIRUS INFECTION, UNSPECIFIED SNOMED Code(s): 348459897 (6) Hypoxia Current Visit: Yes Status: Acute Code(s): R09.02 - HYPOXEMIA SNOMED Code(s): 925049694 (7) Pneumonia due to COVID-19 virus Current Visit: Yes Status: Acute Code(s): U07.1 - COVID-19; J12.82 - Pneumonia due to coronavirus disease 2018 SNOMED Code(s): 883136782958147356
--- NOTE | 2021-08-18 14:53 | P.PN ---
Subjective Progress Note Date: 08/18/21 Principal diagnosis: Pt is seen for f/u for BAUTISTA. He remains on the vent. Maintained on cleviprex drip. Good UOP. Renal function continues to improve. Objective - Vital Signs Vital signs: Vital Signs Temp 98.7 F 08/18/21 12:00 Pulse 93 08/18/21 14:00 Resp 38 H 08/18/21 14:00 BP 126/63 08/18/21 12:45 Pulse Ox 95 08/18/21 14:00 Intake & Output 08/17/21 08/18/21 08/18/21 18:59 06:59 18:59 Intake Total 1417.641 9089.038 1683.538 Output Total 1525 1640 920 Balance 269.527 285.038 763.538 Weight 122.1 kg Intake: IV 306 253 161 Sodium Chloride 0.9% 1, 270 220 140 000 ml @ 20 mls/hr IV . Q24H [facility] Rx#:[id number] pressure bag .9 36 33 21 Intake, IV Titration 9541.090 1037.038 1276.538 Amount Cisatracurium 200 mg In 132.597 200 191.792 Sodium Chloride 0.9% 180 ml @ 1 MCG/KG/MIN 7.893 mls/hr IV .Q24H [facility] Rx#: [id number] Clevidipine Butyrate 25 35.233 159.133 mg In Empty Bag 1 bag @ 1 MG/HR 2 mls/hr IV .Q24H [facility] Rx#:[id number] Heparin Sod,Pork in 0.45% 30 NaCl 25,000 unit In 0.45 % NaCl 1 250ml.bag @ 8.19 UNITS/KG/HR 10 mls/hr IV .Q24H [facility] Rx#:[id number] fentaNYL (PF). 2,500 mcg 500 500.000 497.628 In Sodium Chloride 0.9% 200 ml @ 0.5 MCG/KG/HR 6. 577 mls/hr IV .Q24H [facility] Rx#:[id number] propofoL 1,000 mg In 495.930 677.805 397.985 Empty Bag 1 bag @ Titrate IV .Q0M [facility] Rx#: [id number] Tube Feeding 210 154 126 Other 150 105 120 Output: Urine 1525 1640 920 Other: Voiding Method Indwelling Catheter Indwelling Catheter Indwelling Catheter ABP, PAP, CO, CI - Last Documented Arterial Blood Pressure 105/54 - Exam Pt is not examined. Vital signs are reviewed. - Labs CBC & Chem 7: 08/18/21 05:15 08/18/21 05:15 Labs: Abnormal Lab Results - Last 24 Hours (Table) 08/16/21 08/17/21 08/17/21 Range/Units 18:46 18:11 23:07 WBC (3.8-10.6) k/uL RBC (4.30-5.90) m/uL Hgb (13.0-17.5) gm/dL Hct (39.0-53.0) % RDW (11.5-15.5) % Neutrophils # (Manual) (1.3-7.7) k/uL Metamyelocytes # (Man) (0) k/uL Myelocytes # (Manual) (0) k/uL Nucleated RBCs (0-0) /100 WBC APTT (22.0-30.0) sec ABG pH (7.35-7.45) ABG pCO2 (35-45) mmHg ABG pO2 (83-108) mmHg ABG HCO3 (21-25) mmol/L ABG Total CO2 (19-24) mmol/L ABG O2 Saturation (94-97) % BUN (9-20) mg/dL Glucose (74-99) mg/dL POC Glucose (mg/dL) 101 H 106 H (75-99) mg/dL ALT (4-49) U/L Total Protein (6.3-8.2) g/dL Albumin (3.5-5.0) g/dL Crossmatch See Detail 08/18/21 08/18/21 08/18/21 Range/Units 05:15 05:15 05:17 WBC 14.7 H (3.8-10.6) k/uL RBC 2.94 L (4.30-5.90) m/uL Hgb 8.7 L (13.0-17.5) gm/dL Hct 27.5 L (39.0-53.0) % RDW 19.6 H (11.5-15.5) % Neutrophils # (Manual) 12.40 H (1.3-7.7) k/uL Metamyelocytes # (Man) 0.59 H (0) k/uL Myelocytes # (Manual) 0.29 H (0) k/uL Nucleated RBCs 1 H (0-0) /100 WBC APTT (22.0-30.0) sec ABG pH (7.35-7.45) ABG pCO2 (35-45) mmHg ABG pO2 (83-108) mmHg ABG HCO3 (21-25) mmol/L ABG Total CO2 (19-24) mmol/L ABG O2 Saturation (94-97) % BUN 28 H (9-20) mg/dL Glucose 101 H (74-99) mg/dL POC Glucose (mg/dL) 102 H (75-99) mg/dL ALT 94 H (4-49) U/L Total Protein 6.1 L (6.3-8.2) g/dL Albumin 3.1 L (3.5-5.0) g/dL Crossmatch 08/18/21 08/18/21 08/18/21 Range/Units 05:21 10:00 11:33 WBC (3.8-10.6) k/uL RBC (4.30-5.90) m/uL Hgb (13.0-17.5) gm/dL Hct (39.0-53.0) % RDW (11.5-15.5) % Neutrophils # (Manual) (1.3-7.7) k/uL Metamyelocytes # (Man) (0) k/uL Myelocytes # (Manual) (0) k/uL Nucleated RBCs (0-0) /100 WBC APTT 20.6 L (22.0-30.0) sec ABG pH 7.30 L (7.35-7.45) ABG pCO2 55 H (35-45) mmHg ABG pO2 61 L (83-108) mmHg ABG HCO3 27 H (21-25) mmol/L ABG Total CO2 29 H (19-24) mmol/L ABG O2 Saturation 88.4 L (94-97) % BUN (9-20) mg/dL Glucose (74-99) mg/dL POC Glucose (mg/dL) 107 H (75-99) mg/dL ALT (4-49) U/L Total Protein (6.3-8.2) g/dL Albumin (3.5-5.0) g/dL Crossmatch Assessment and Plan Assessment: 1. BAUTISTA, ATN, non oliguric, improving. Etiology, COVID pneumonia, hypotension, contrast nephropathy. Renal function continues to improve. 2. Acute hypoxic respiratory failure secondary to COVID pneumonia. Pt remains on the vent. 3. HTN, was on cleviprex drip.Now discontinued. 4. Hypernatremia, improved 5. Hyperkalemia, resolved. 6. S/p trach and PEG 7. COVID pneumonia, on the vent. FiO2 50% Plan: Continue off of IVF Monitor electrolytes. Decrease free water if sodium is lower.
--- NOTE | 2021-08-18 15:32 | P.PN ---
Subjective Progress Note Date: 08/18/21 Principal diagnosis: COVID-19 bilateral pneumonia Acute hypoxic respiratory failure 31 years old -[place] man with no significant past medical history presents with dyspnea which started yesterday associated with fever and coughing. Patient tested positive for covid earlier on Thursday after he felt with fever and cough on Thursday but at that time he was not dyspneic. He denies chest pain or abdominal pain but he has diarrhea on and off. No vomiting. He is saturating 89% on 6 L oxygen via nasal cannula, afebrile. Tachypneic with a breathing rate at 23. CBC, is unremarkable. INR is normal at 1.0. Sodium is 1:30, creatinine normal at 1.1, glucose 103. AST is mildly elevated 106 and ALT mildly elevated 106. Elevated lactate dehydrogenase 2600 and C-reactive protein 20.3. Cholelithiasis positive EKG shows sinus tachycardia and [address]-T changes Chest x-ray showing bilateral infiltrates 08/03/2021 patient is seen and evaluated ; continues to have difficulty breathing secondary to COVID-19 pneumonia. Earlier this morning at around 4 AM, the patient had a spell where he had an increased cough and in between he was unable to catch his breath and the patient desaturated. At that point, he was placed on BiPAP. He was quite hypoxic and he gradually build himself up and currently is back on 14/7 cm of water with an FiO2 of 90%. He is currently holding his BiPAP mask on his face. He is comfortable. He is also willing to consider to go back on high flow oxygen in addition to 100% on a beta facemask. --He remains on Decadron 6 mg on a daily basis. He remains on Baricitinib 4 mg on a daily basis. He remains on Lovenox 40 mg subcu on a daily basis. Labs are reviewed and reveal white cell count is at 9.8 with hemoglobin of 12.1. His d-dimer from 08/01/2021 was 1.87. Creatinine is at 1.09 with a BUN of 30 and the rest of the electrodes are all within normal limits. He is afebrile. He is tolerating his diet as the patient is able to eat in between different modes of oxygen delivery. He did have a spike of temperature of 11.6 yesterday. He is tachypneic his breathing is labored. Continue BiPAP treatment alternating with high flow oxygen at 6 L with an FiO2 of 90% Will monitor this patient on the medical floor and transferred to the intensive care unit if there is any worsening 08/04/2021 the patient is somewhat better compared to yesterday. - The patient gradually improved since then and currently is on high flow oxygen and 60 L of FiO2 of 90% in addition to 100% nonrebreather facemask; He remains on Decadron 6 mg on a daily basis and addition to Baricitinib 4 mg by mouth rachna; Lovenox and the dose is adjusted to 60 mg subcu every 12 hours because of an elevated d-dimer of 14.3. Meanwhile, his LDH still elevated at 2954 and a CRP still elevated at 13.8. Platelet electrodes are all within normal limits. His white cell count of 15.3 with hemoglobin of 13.4. Chest x- ray from today was reviewed and was compared to the earlier chest x-ray showed improvement in the inspiratory effort and there is also improvement in the right basilar consolidation. However there is still persistent and diffuse breath and pulmonary infiltrates perihilar and lower lobes bilaterally. Patient is awake and alert. No altered mentation. No other new complaints otherwise for now. 08/16/2021 The patient was admitted to the hospital with coronavirus associated pneumonia; moved to the intensive care unit on August 06, and intubated on the same day. He remains on the mechanical ventilator. --On August 14, the patient underwent tracheostomy. The PEG tube was attempted, but was not able to be done. Ventilator settings include the volume assist control mode White count 15.7, hemoglobin 7.5, hematocrit 23.9, platelet count 429,000. D- dimer was 5.08. Sodium 137, potassium 4.7, chlorides 107, CO2 24, anion gap is 6, BUN 41, creatinine 1.30. Albumin is 2.8. C-reactive protein is 3.8. Chest x-ray shows diffuse bilateral infiltrates. No change in chest x-ray compared to prior x-rays. Patient remains in intensive care unit with critical care on board; remains on IV Zosyn and Levaquin; cultures are negative so far; critical coronary recommending to continue with current management at this time 08/17/2021 Patient is seen and evaluated in ICU; remains on the mechanical ventilator; patient underwent tracheostomy. Arterial blood gases show pO2 of 81, pCO2 48, and a pH is 7.36. The patient's on saline at 20 mL an hour, fentanyl at 4 mcg/kg/h, propofol at 75 mcg/kg/m, Nimbex at 3 g kilogram per minute, and tube feedings with Nepro at 14 mL an hour, which is goal. Last night, because of bleeding around the tracheostomy site, patient received 1 unit of packed red blood cells, 1 unit of platelets, and protamine sulfate. lab review revealsWhite count is 15.2, hemoglobin 7.7, hematocrit 24.6, and platelet count 348,000. Sodium 135, potassium 4.7, chlorides 107, CO2 25, anion gap 3, BUN 32, creatinine 1.26. Chest x-ray from today, shows stable bilateral pulmonary infiltrates. patient underwent a trial of discontinuing Nimbex; it was restarted once patient became tachypneic 08/18/2021 Patient is seen and evaluated in ICU; remains intubated and mechanically ventilated; remains sedated - patient underwent tracheostomy tube placement on 08/14/2021. A PEG tube was attempted, but was unsuccessful; surgery on board. - labs are reviewed and reveal a white count of 14.7 in room 8.7 hematocrit 27.5 and a platelet count 349,000. Sodium potassium chloride CO2 all normal. Anion gap 6. BUN 28, creatinine 1.16. Albumin was 3.1. Chest x-ray continues to show diffuse bilateral patchy infiltrates. There is also the presence of the midline tracheostomy tube. Patient remains on labetalol for blood pressure control But intensive care service patient has not been able to tolerate a holiday from Nimbex; remains critically ill Objective - Vital Signs Vital signs: Vital Signs Temp 98.6 F 08/18/21 08:00 Pulse 125 H 08/18/21 08:00 Resp 38 H 08/18/21 08:00 BP 121/64 08/18/21 08:00 Pulse Ox 99 08/18/21 08:00 Intake & Output 08/17/21 08/18/21 08/18/21 18:59 06:59 18:59 Intake Total 2554.858 3019.038 637.653 Output Total 1525 1640 200 Balance 269.527 285.038 437.653 Weight 122.1 kg Intake: IV 306 253 46 Sodium Chloride 0.9% 1, 270 220 40 000 ml @ 20 mls/hr IV . Q24H [facility] Rx#:[id number] pressure bag .9 36 33 6 Intake, IV Titration 0179.086 4994.038 533.653 Amount Cisatracurium 200 mg In 132.597 200 191.792 Sodium Chloride 0.9% 180 ml @ 1 MCG/KG/MIN 7.893 mls/hr IV .Q24H [facility] Rx#: [id number] Clevidipine Butyrate 25 35.233 94.233 mg In Empty Bag 1 bag @ 1 MG/HR 2 mls/hr IV .Q24H [facility] Rx#:[id number] fentaNYL (PF). 2,500 mcg 500 500.000 247.628 In Sodium Chloride 0.9% 200 ml @ 0.5 MCG/KG/HR 6. 577 mls/hr IV .Q24H [facility] Rx#:[id number] propofoL 1,000 mg In 495.930 677.805 Empty Bag 1 bag @ Titrate IV .Q0M [facility] Rx#: [id number] Tube Feeding 210 154 28 Other 150 105 30 Output: Urine 1525 1640 200 Other: Voiding Method Indwelling Catheter Indwelling Catheter ABP, PAP, CO, CI - Last Documented Arterial Blood Pressure 125/59 - Exam GENERAL: The patient is alert and oriented x3, not in any acute distress. Well developed, well nourished. HEENT: Pupils are round and equally reacting to light. EOMI. No scleral icterus. No conjunctival pallor. Normocephalic, atraumatic. No pharyngeal erythema. No thyromegaly. CARDIOVASCULAR: S1 and S2 present. No murmurs, rubs, or gallops. -PULMONARY: Chest is clear to auscultation, no wheezing bilateral crepitation, tachypnea ABDOMEN: Soft, nontender, nondistended, normoactive bowel sounds. No palpable organomegaly. MUSCULOSKELETAL: No joint swelling or deformity. EXTREMITIES: No cyanosis, clubbing, or pedal edema. NEUROLOGICAL: Gross neurological examination did not reveal any focal deficits. SKIN: No rashes. No petechiae - Labs CBC & Chem 7: 08/18/21 05:15 08/18/21 05:15 Labs: Abnormal Lab Results - Last 24 Hours (Table) 08/16/21 08/17/21 08/17/21 Range/Units 18:46 18:11 23:07 WBC (3.8-10.6) k/uL RBC (4.30-5.90) m/uL Hgb (13.0-17.5) gm/dL Hct (39.0-53.0) % RDW (11.5-15.5) % ABG pH (7.35-7.45) ABG pCO2 (35-45) mmHg ABG pO2 (83-108) mmHg ABG HCO3 (21-25) mmol/L ABG Total CO2 (19-24) mmol/L ABG O2 Saturation (94-97) % BUN (9-20) mg/dL Glucose (74-99) mg/dL POC Glucose (mg/dL) 101 H 106 H (75-99) mg/dL ALT (4-49) U/L Total Protein (6.3-8.2) g/dL Albumin (3.5-5.0) g/dL Crossmatch See Detail 08/18/21 08/18/21 08/18/21 Range/Units 05:15 05:15 05:17 WBC 14.8 H (3.8-10.6) k/uL RBC 2.94 L (4.30-5.90) m/uL Hgb 8.7 L (13.0-17.5) gm/dL Hct 27.5 L (39.0-53.0) % RDW 19.6 H (11.5-15.5) % ABG pH (7.35-7.45) ABG pCO2 (35-45) mmHg ABG pO2 (83-108) mmHg ABG HCO3 (21-25) mmol/L ABG Total CO2 (19-24) mmol/L ABG O2 Saturation (94-97) % BUN 28 H (9-20) mg/dL Glucose 101 H (74-99) mg/dL POC Glucose (mg/dL) 102 H (75-99) mg/dL ALT 94 H (4-49) U/L Total Protein 6.1 L (6.3-8.2) g/dL Albumin 3.1 L (3.5-5.0) g/dL Crossmatch 08/18/21 Range/Units 05:21 WBC (3.8-10.6) k/uL RBC (4.30-5.90) m/uL Hgb (13.0-17.5) gm/dL Hct (39.0-53.0) % RDW (11.5-15.5) % ABG pH 7.30 L (7.35-7.45) ABG pCO2 55 H (35-45) mmHg ABG pO2 61 L (83-108) mmHg ABG HCO3 27 H (21-25) mmol/L ABG Total CO2 29 H (19-24) mmol/L ABG O2 Saturation 88.4 L (94-97) % BUN (9-20) mg/dL Glucose (74-99) mg/dL POC Glucose (mg/dL) (75-99) mg/dL ALT (4-49) U/L Total Protein (6.3-8.2) g/dL Albumin (3.5-5.0) g/dL Crossmatch Assessment and Plan Assessment: Acute bilateral Covid pneumonia Acute hypoxic respiratory failure Elevated inflammatory markers Obesity with BMI of 49.8 Plan: This is a pleasant 31 years old male who presents with bilateral Covid pneumonia and hypoxia. Continue with oxygen as needed Continue With dexamethasone and Lovenox. Continue with vitamin C, vitamin D and zinc c/w baricitinib Pulmonary consult Labs and medication were reviewed.. Continue same treatment. Continue with symptomatic treatment. Resume home medication. Monitor lytes and vitals. DVT and GI prophylaxis. Further recommendations depends on the clinical course of the patient DVT prophylaxis: Subcutaneous Lovenox GI Prophylaxis: Pepcid Prognosis is guarded
[2021-08-18] MEDS: SODIUM CHLORIDE 0.9% 1,000 ML IV SCH (16:40)
[2021-08-18] MEDS: HEPARIN SODIUM 1,000 UN/ML (10ML VL) IV PRN (18:04)
[2021-08-18 18:14] LABS: Glucose,Whole Blood 100 mg/dL (75-99)
[2021-08-19 00:02] LABS: Glucose,Whole Blood 107 mg/dL (75-99)
[2021-08-19] MEDS: INSULIN ASPART (NovoLOG) 100 UNIT/ML VIAL SQ SCH ×4 (00:07→18:00)
[2021-08-19] MEDS: HEPARIN SODIUM 1,000 UN/ML (10ML VL) IV PRN ×3 (00:35→17:50)
[2021-08-19] MEDS: fentaNYL (PF). 2,500 MCG in SODIUM CHLORIDE 0.9% 200 ML IV SCH ×7 (01:42→21:35)
[2021-08-19] MEDS ORDERED: CISATRACURIUM 2 MG/ML 5 ML VIAL IV ONE (03:52)
[2021-08-19] MEDS: ARTIFICIAL TEARS-HYPROMELLOSE DROPS 15 ML BTL BOTH EYES SCH ×5 (04:02→20:03)
[2021-08-19] MEDS: PIPERACILLIN-TAZOBACTAM 3.375 GM in SODIUM CHLORIDE 0.9% 100 ML IVPB SCH (04:03)
[2021-08-19 04:40] LABS: Anisocytosis Moderate; Basophils # (A) 0.1 k/uL (0-0.2); Basophils % (A) 1 %; Eosinophils # (A) 0.1 k/uL (0-0.7); Eosinophils % (A) 1 %; HCT 25.4 % (39.0-53.0); HGB 7.6 gm/dL (13.0-17.5); Hypochromasia Marked; Lymphocytes # (A) 1.2 k/uL (1.0-4.8); Lymphocytes % (A) 11 %; MCH 28.7 pg (25.0-35.0); MCHC 29.8 g/dL (31.0-37.0); MCV 96.1 fL (80.0-100.0); Macrocytosis Slight; Mean Platelet Volume 9.9; Monocytes # (A) 0.5 k/uL (0-1.0); Monocytes % (A) 5 %; Neutrophils # (A) 9.5 k/uL (1.3-7.7); Neutrophils % (A) 82 %; Platelet Count 294 k/uL (150-450); Poikilocytosis Slight; RBC 2.65 m/uL (4.30-5.90); RDW 20.5 % (11.5-15.5); WBC 11.6 k/uL (3.8-10.6)
[2021-08-19] MEDS: HEPARIN SOD,PORK IN 0.45% NACL 25,000 UNIT in 0.45% NACL 1 250ML.BAG IV SCH ×2 (05:06→17:51)
[2021-08-19 05:38] LABS: ABG Base Excess 0.6 mmol/L; ABG HCO3 26 mmol/L (21-25); ABG Oxygen Saturation 93.2 % (94-97); ABG PCO2 48 mmHg (35-45); ABG PH 7.35 (7.35-7.45); ABG PO2 67 mmHg (83-108); ABG TCO2 28 mmol/L (19-24); Allen Test Performed? Yes
[2021-08-19 05:58] LABS: Glucose,Whole Blood 101 mg/dL (75-99)
[2021-08-19] MEDS: CISATRACURIUM 200 MG in SODIUM CHLORIDE 0.9% 180 ML IV SCH ×3 (07:20)
[2021-08-19] MEDS: ALBUTEROL HFA INHALER INHALATION PRN ×4 (07:35→19:55)
--- NOTE | 2021-08-19 08:51 | P.PN ---
Subjective Progress Note Date: 08/18/21 31-year-old black male, being seen in follow-up in the intensive care unit as the patient is a case of COVID-19 related pneumonia complicated by prolonged respiratory failure,. He was admitted to the hospital on July 31 with coronavirus associated pneumonia. On August 06, because of worsening hypoxemic respiratory failure, the patient was moved to the ICU and intubated. On August 14, the patient underwent tracheostomy tube placement. A PEG tube was attempted, but could not be performed because of anatomic reasons. On 08/19/2021, the patient remains on the volume assist control mode, rate 38, tidal volume 375, FiO2 50%, PEEP of 15. The patient is currently on fentanyl at 5.5 mcg/kg/h, Nimbex at 4 mcg/kg/m, propofol at 75 mcg/kg/m, Cleveprex is off , Nepro, at 14 mL an hour which is goal. Chest x-ray continues to show diffuse bilateral patchy infiltrates. There is also the presence of the midline tracheostomy tube. The patient has a Bivona #9 tube. The patient remains on steroids and the patient is receiving Decadron 6 mg IV every [address] angiogram that was done on 08/06/2021 showed at least 2 nonobstructing thrombus in the right lung pulmonary artery. No mediastinal lymphadenopathy. There was evidence of groundglass bilateral pulmonary infiltrates consistent with COVID-19 related pneumonia. The Doppler of the lower extremity that was done back then was also negative for DVTs. Most recent d-dimer from 08/16/2021 showed a level of 5.08. Patient remains on IV heparin for now. He was started on metoprolol 25 mg by mouth twice a day and hydralazine 25 mg by mouth 4 times a day, when necessary and Trandate when necessary. Clevidipine drip is being weaned off. The pro-calcitonin levels from 08/18/2021 was 0.25. The highest level of pro-calcitonin was on 08/08/2021 with a level was as high as 5.5 and subsequently leveled off. The patient is still on a combination of antibiotics including Zosyn and Levaquin. All of the cultures of been negative. The chest x-ray showing bilateral pulmonary infiltrates. Tracheostomy tube is in a good location. No other complications. No pneumothorax. No pleural effusion. No consolidation. There is diffuse bilateral pulmonary infiltration. The blood gases from today showing a pH of 7.35 with a pCO2 of 48 and pO2 of 67. This was on FiO2 of 50% with a PEEP of 15. The patient remains on IV heparin. No evidence of any bleeding around the tracheostomy tube. We have opted to keep him on IV heparin rather than long-acting anticoagulation due to bleeding complications. The patient has a left upper extremity PICC line. Patient has a Lees catheter in place. The patient also has an arterial line and a right radial. The inflammatory markers in general were downtrending. Objective - Vital Signs Vital signs: Vital Signs Temp 98.4 F 08/18/21 16:00 Pulse 94 08/18/21 19:00 Resp 38 H 08/18/21 19:00 BP 126/63 08/18/21 12:45 Pulse Ox 94 L 08/18/21 19:00 Intake & Output 08/18/21 08/18/21 08/19/21 06:59 18:59 06:59 Intake Total 4061.874 3143.213 51 Output Total 1640 1705 Balance 592.645 5026.213 51 Weight 122.1 kg Intake: IV 253 276 23 Sodium Chloride 0.9% 1, 220 240 20 000 ml @ 20 mls/hr IV . Q24H [facility] Rx#:[id number] pressure bag .9 33 36 3 Intake, IV Titration 2203.444 5836.213 Amount Cisatracurium 200 mg In 200 376.875 Sodium Chloride 0.9% 180 ml @ 1 MCG/KG/MIN 7.893 mls/hr IV .Q24H [facility] Rx#: [id number] Clevidipine Butyrate 25 35.233 159.133 mg In Empty Bag 1 bag @ 1 MG/HR 2 mls/hr IV .Q24H [facility] Rx#:[id number] Heparin Sod,Pork in 0.45% 141.5 NaCl 25,000 unit In 0.45 % NaCl 1 250ml.bag @ 8.19 UNITS/KG/HR 10 mls/hr IV .Q24H [facility] Rx#:[id number] fentaNYL (PF). 2,500 mcg 500.000 997.628 In Sodium Chloride 0.9% 200 ml @ 0.5 MCG/KG/HR 6. 577 mls/hr IV .Q24H [facility] Rx#:[id number] propofoL 1,000 mg In 677.805 573.077 Empty Bag 1 bag @ Titrate IV .Q0M [facility] Rx#: [id number] Tube Feeding 154 196 28 Other 105 190 Output: Urine 1640 1705 Other: Voiding Method Indwelling Catheter Indwelling Catheter ABP, PAP, CO, CI - Last Documented Arterial Blood Pressure 113/59 - Exam No acute distress, sedated and paralyzed, with a midline tracheostomy tube. Head exam was generally normal. There was no scleral icterus or corneal arcus. Mucous membranes were moist. Neck was supple and without jugular venous distension, thyromegaly, or carotid bruits. Carotids were easily palpable bilaterally. There was no adenopathy. The patient is a tracheostomy and a tracheostomy is clean Lungs sounds are diminished bilaterally patient has coarse crackles throughout the lung stevens Cardiac exam revealed the PMI to be normally situated and sized. The rhythm was regular and no extrasystoles were noted during several minutes of auscultation. The first and second heart sounds were normal and physiologic splitting of the second heart sound was noted. There were no murmurs, rubs, clicks, or gallops. Abdominal exam revealed normal bowel sounds. The abdomen was soft, non-tender, and without masses, organomegaly, or appreciable enlargement of the abdominal aorta. Examination of the extremities revealed easily palpable radial, femoral and pedal pulses. There was no cyanosis, clubbing or edema. Examination of the skin revealed no evidence of significant rashes, suspicious appearing nevi or other concerning lesions. Neurologically the patient sedated and paralyzed - Labs CBC & Chem 7: 08/19/21 04:20 08/18/21 05:15 Labs: Abnormal Lab Results - Last 24 Hours (Table) 08/16/21 08/17/21 08/18/21 Range/Units 18:46 23:07 04:25 WBC (3.8-10.6) k/uL RBC (4.30-5.90) m/uL Hgb (13.0-17.5) gm/dL Hct (39.0-53.0) % RDW (11.5-15.5) % Neutrophils # (Manual) (1.3-7.7) k/uL Metamyelocytes # (Man) (0) k/uL Myelocytes # (Manual) (0) k/uL Nucleated RBCs (0-0) /100 WBC APTT (22.0-30.0) sec ABG pH (7.35-7.45) ABG pCO2 (35-45) mmHg ABG pO2 (83-108) mmHg ABG HCO3 (21-25) mmol/L ABG Total CO2 (19-24) mmol/L ABG O2 Saturation (94-97) % BUN (9-20) mg/dL Glucose (74-99) mg/dL POC Glucose (mg/dL) 106 H (75-99) mg/dL ALT (4-49) U/L Total Protein (6.3-8.2) g/dL Albumin (3.5-5.0) g/dL Procalcitonin 0.25 H (0.02-0.09) ng/mL Crossmatch See Detail 08/18/21 08/18/21 08/18/21 Range/Units 05:15 05:15 05:17 WBC 14.7 H (3.8-10.6) k/uL RBC 2.94 L (4.30-5.90) m/uL Hgb 8.7 L (13.0-17.5) gm/dL Hct 27.5 L (39.0-53.0) % RDW 19.6 H (11.5-15.5) % Neutrophils # (Manual) 12.40 H (1.3-7.7) k/uL Metamyelocytes # (Man) 0.59 H (0) k/uL Myelocytes # (Manual) 0.29 H (0) k/uL Nucleated RBCs 1 H (0-0) /100 WBC APTT (22.0-30.0) sec ABG pH (7.35-7.45) ABG pCO2 (35-45) mmHg ABG pO2 (83-108) mmHg ABG HCO3 (21-25) mmol/L ABG Total CO2 (19-24) mmol/L ABG O2 Saturation (94-97) % BUN 28 H (9-20) mg/dL Glucose 101 H (74-99) mg/dL POC Glucose (mg/dL) 102 H (75-99) mg/dL ALT 94 H (4-49) U/L Total Protein 6.1 L (6.3-8.2) g/dL Albumin 3.1 L (3.5-5.0) g/dL Procalcitonin (0.02-0.09) ng/mL Crossmatch 08/18/21 08/18/21 08/18/21 Range/Units 05:21 10:00 11:33 WBC (3.8-10.6) k/uL RBC (4.30-5.90) m/uL Hgb (13.0-17.5) gm/dL Hct (39.0-53.0) % RDW (11.5-15.5) % Neutrophils # (Manual) (1.3-7.7) k/uL Metamyelocytes # (Man) (0) k/uL Myelocytes # (Manual) (0) k/uL Nucleated RBCs (0-0) /100 WBC APTT 20.6 L (22.0-30.0) sec ABG pH 7.30 L (7.35-7.45) ABG pCO2 55 H (35-45) mmHg ABG pO2 61 L (83-108) mmHg ABG HCO3 27 H (21-25) mmol/L ABG Total CO2 29 H (19-24) mmol/L ABG O2 Saturation 88.4 L (94-97) % BUN (9-20) mg/dL Glucose (74-99) mg/dL POC Glucose (mg/dL) 107 H (75-99) mg/dL ALT (4-49) U/L Total Protein (6.3-8.2) g/dL Albumin (3.5-5.0) g/dL Procalcitonin (0.02-0.09) ng/mL Crossmatch 08/18/21 Range/Units 18:13 WBC (3.8-10.6) k/uL RBC (4.30-5.90) m/uL Hgb (13.0-17.5) gm/dL Hct (39.0-53.0) % RDW (11.5-15.5) % Neutrophils # (Manual) (1.3-7.7) k/uL Metamyelocytes # (Man) (0) k/uL Myelocytes # (Manual) (0) k/uL Nucleated RBCs (0-0) /100 WBC APTT (22.0-30.0) sec ABG pH (7.35-7.45) ABG pCO2 (35-45) mmHg ABG pO2 (83-108) mmHg ABG HCO3 (21-25) mmol/L ABG Total CO2 (19-24) mmol/L ABG O2 Saturation (94-97) % BUN (9-20) mg/dL Glucose (74-99) mg/dL POC Glucose (mg/dL) 100 H (75-99) mg/dL ALT (4-49) U/L Total Protein (6.3-8.2) g/dL Albumin (3.5-5.0) g/dL Procalcitonin (0.02-0.09) ng/mL Crossmatch Assessment and Plan Plan: 1 Acute hypoxemic respiratory failure secondary to coronavirus associated pneumonia, status post intubation and mechanical ventilation on August 06. Status post tracheostomy tube insertion, 08/14/2021. Unfortunately, PEG tube could not be placed on that same day. The patient remains on a mechanical ventilator. The patient is being ventilated with a low tidal volume strategy. . Blood gases was noted. Chest x-ray was noted. The patient remains on Decadron. Antibiotic coverage essentially essentially emphatic with a combination of Levaquin and Zosyn. The patient remains sedated and paralyzed. 2 Acute respiratory distress syndrome. The patient remains on low tidal volume high PEEP mechanical ventilation. We are allowing permissive hypercapnia. Peak airway pressures around 36 anesthetic a pressure of around 32. 3 Elevated inflammatory marker secondary to coronavirus infection. The inflammatory markers are essentially downtrending 4 Acute/subacute pulmonary embolism. This was identified on a CT angios gram of the chest at the time of admission. Doppler of the lower extremities were negative and the patient remains on IV heparin. 5 Elevated liver enzymes secondary to coronavirus infection. 6 Morbid obesity. 7 hypertension off Cleviprex drip 8 acute kidney injury, improved 9 anemia, multifactorial, no signs of any acute bleeding and the patient remains on IV heparin 10 enteral feeding for nutritional support and the patient is currently receiving Nepro at 14 and his last bowel movement was on 08/16/2021 Plan Give the patient paralytic holiday Continue propofol and fentanyl for now Assessment and ability to stay off paralytics Continue Decadron Stop all antibiotics including Zosyn and Levaquin. The patient is afebrile. Pro-calcitonin level is not elevated. Continue enteral feeding for nutritional support Obtain offensive of the abdomen. After the day abdomen slightly distended on today's examination, consider underlying ileus/constipation related to sedative narcotic medication. Give the patient Dulcolax suppositories 1 and start him on Senokot S by mouth twice a day Recheck inflammatory markers Continued IV heparin for today Continue vent support no changes on a mechanical ventilator Renal function continues to improve No signs of any fluid overload. The patient has some trace edema in the upper and lower eczematous bilaterally Family was updated and will continue to follow and make further recommendations based on his progress. This is a critically care evaluation was done and more t carbajal 30 minutes. Time with Patient: Greater than 30
[2021-08-19] MEDS: DEXAMETHASONE SOD PHOSPHATE 10 MG/ML 1 ML VIAL IV SCH ×2 (09:06→20:02)
[2021-08-19] MEDS: PANTOPRAZOLE 40 MG/10 ML VIAL IVP SCH ×2 (09:06→20:02)
[2021-08-19] MEDS: ZINC SULFATE 220 MG CAP PO SCH (09:07)
[2021-08-19] MEDS: SENNOSIDES-DOCUSATE SODIUM 1 EACH TAB PO SCH (09:07)
[2021-08-19] MEDS: ASCORBIC ACID 500 MG TAB PO SCH (09:07)
[2021-08-19] MEDS: CHOLECALCIFEROL 25 MCG (1000 IU) TABLET PO SCH (09:07)
[2021-08-19] MEDS: CHLORHEXIDINE GLUCONATE 15 ML CUP MUCOUS MEM SCH ×2 (09:08→20:02)
[2021-08-19] MEDS: bisacodyL 10 MG SUPP RECTAL SCH (09:08)
--- NOTE | 2021-08-19 09:51 | XR ---
EXAMINATION TYPE: XR abdomen 1V DATE OF EXAM: 08/19/2021 9:33 AM CLINICAL HISTORY: Abdominal distention TECHNIQUE: Single supine KUB image of the abdomen is obtained. COMPARISON: None. FINDINGS: Rectal probe is present. There is an enteric tube terminating in the region of the stomach. There are loops of air distended colon. IMPRESSION: Air distended colon.
[2021-08-19] MEDS: amLODIPine 5 MG TAB PO SCH (10:30)
[2021-08-19] MEDS: METOPROLOL TARTRATE 25 MG TAB PO SCH ×2 (10:30→20:02)
[2021-08-19 11:10] LABS: Glucose,Whole Blood 96 mg/dL (75-99)
[2021-08-19 11:32] LABS: Glucose,Whole Blood 92 mg/dL (75-99)
--- NOTE | 2021-08-19 14:28 | P.PN ---
Subjective Progress Note Date: 08/19/21 CHIEF COMPLAINT: COVID-19 pneumonia HISTORY OF PRESENT ILLNESS: Patient remains in the ICU on mechanical ventilation. He is status post tracheostomy placementon 08/14/21. PEG tube was not placed due to nonvisualization of light reflex to the stomach during EGD. And currently receiving tube feedings through NG tube. Afebrile WBC 11.6 HGB 7.6 Abdominal x-ray ordered by critical care service due to abdominal distention. Patient was given Dulcolax suppository and Senokot. He did have a medium to large BM today. AXR shows loops of air distended colon. PHYSICAL EXAM: VITAL SIGNS: Reviewed. GENERAL: Well-developed in no acute distress. HEENT: No sclera icterus. Extraocular movements grossly intact. Moist buccal mucosa. Head is atraumatic, normocephalic. Tracheostomy site clean dry and int act ABDOMEN: Soft. distended NEUROLOGIC: Intubated and sedated ASSESSMENT: 1. Acute hypoxic respiratory failure due to COVID-19 pneumonia with prolonged mechanical intubation. Status post tracheostomy placement 2. Severe protein calorie malnutrition. PEG tube insertion aborted. Unable to visualize light reflex. PLAN: -Dr. Green will reassess for possible PEG tube placement -Continue ICU management -Continue supportive care Physician Facer Operator note has been reviewed by physician. Signing provider agrees with the documented findings, assessment, and plan of care. Objective - Vital Signs Vital signs: Vital Signs Temp 98.3 F 08/19/21 12:00 Pulse 97 08/19/21 13:00 Resp 38 H 08/19/21 13:00 BP 168/90 08/19/21 12:00 Pulse Ox 91 L 08/19/21 13:00 Intake & Output 08/18/21 08/19/21 08/19/21 18:59 06:59 18:59 Intake Total 2910.213 2379.854 1174.846 Output Total 1705 1905 1055 Balance 1205.213 474.854 119.846 Weight 123.4 kg 123.4 kg Intake: IV 276 276 143 Sodium Chloride 0.9% 1, 240 240 140 000 ml @ 20 mls/hr IV . Q24H [facility] Rx#:[id number] pressure bag .9 36 36 3 Intake, IV Titration 2248.213 2420.858 8425.846 Amount Cisatracurium 200 mg In 376.875 291.95 188.291 Sodium Chloride 0.9% 180 ml @ 1 MCG/KG/MIN 7.893 mls/hr IV .Q24H [facility] Rx#: [id number] Clevidipine Butyrate 25 159.133 mg In Empty Bag 1 bag @ 1 MG/HR 2 mls/hr IV .Q24H [facility] Rx#:[id number] Heparin Sod,Pork in 0.45% 141.5 169.876 47.935 NaCl 25,000 unit In 0.45 % NaCl 1 250ml.bag @ 8.19 UNITS/KG/HR 10 mls/hr IV .Q24H [facility] Rx#:[id number] fentaNYL (PF). 2,500 mcg 997.628 747.189 482.719 In Sodium Chloride 0.9% 200 ml @ 0.5 MCG/KG/HR 6. 577 mls/hr IV .Q24H [facility] Rx#:[id number] propofoL 1,000 mg In 573.077 577.839 298.901 Empty Bag 1 bag @ Titrate IV .Q0M [facility] Rx#: [id number] Tube Feeding 196 182 14 Other 190 135 Output: Urine 1705 1905 1055 Other: Voiding Method Indwelling Catheter Indwelling Catheter Indwelling Catheter ABP, PAP, CO, CI - Last Documented Arterial Blood Pressure 119/58 - Labs CBC & Chem 7: 08/19/21 04:20 08/18/21 05:15 Labs: Abnormal Lab Results - Last 24 Hours (Table) 08/18/21 08/18/21 08/19/21 Range/Units 04:25 18:13 00:00 WBC (3.8-10.6) k/uL RBC (4.30-5.90) m/uL Hgb (13.0-17.5) gm/dL Hct (39.0-53.0) % MCHC (31.0-37.0) g/dL RDW (11.5-15.5) % Neutrophils # (1.3-7.7) k/uL APTT (22.0-30.0) sec ABG pCO2 (35-45) mmHg ABG pO2 (83-108) mmHg ABG HCO3 (21-25) mmol/L ABG Total CO2 (19-24) mmol/L ABG O2 Saturation (94-97) % POC Glucose (mg/dL) 100 H 107 H (75-99) mg/dL Procalcitonin 0.25 H (0.02-0.09) ng/mL 08/19/21 08/19/21 08/19/21 Range/Units 04:20 05:35 05:57 WBC 11.6 H (3.8-10.6) k/uL RBC 2.65 L (4.30-5.90) m/uL Hgb 7.6 L (13.0-17.5) gm/dL Hct 25.4 L (39.0-53.0) % MCHC 29.8 L (31.0-37.0) g/dL RDW 20.5 H (11.5-15.5) % Neutrophils # 9.5 H (1.3-7.7) k/uL APTT (22.0-30.0) sec ABG pCO2 48 H (35-45) mmHg ABG pO2 67 L (83-108) mmHg ABG HCO3 26 H (21-25) mmol/L ABG Total CO2 28 H (19-24) mmol/L ABG O2 Saturation 93.2 L (94-97) % POC Glucose (mg/dL) 101 H (75-99) mg/dL Procalcitonin (0.02-0.09) ng/mL 08/19/21 Range/Units 06:55 WBC (3.8-10.6) k/uL RBC (4.30-5.90) m/uL Hgb (13.0-17.5) gm/dL Hct (39.0-53.0) % MCHC (31.0-37.0) g/dL RDW (11.5-15.5) % Neutrophils # (1.3-7.7) k/uL APTT 34.9 H (22.0-30.0) sec ABG pCO2 (35-45) mmHg ABG pO2 (83-108) mmHg ABG HCO3 (21-25) mmol/L ABG Total CO2 (19-24) mmol/L ABG O2 Saturation (94-97) % POC Glucose (mg/dL) (75-99) mg/dL Procalcitonin (0.02-0.09) ng/mL
[2021-08-19] MEDS: SODIUM CHLORIDE 0.9% 1,000 ML IV SCH (14:55)
--- NOTE | 2021-08-19 17:20 | PN ---
PROGRESS NOTE Patient is being followed for acute kidney injury. Renal function has improved significantly with creatinine down to 1.16 mg/dL yesterday. Patient has underlying COVID pneumonia. He remains on the vent. He has had good urine output. Patient is not examined. Case is discussed with nursing staff. Blood pressure this morning was 140/74, heart rate of 97 per minute, patient is afebrile. The patient is not examined. LABS: Reviewed. Sodium 137, potassium 4.8, serum creatinine 1.16 on 08/18/2021. ASSESSMENT: 1. Acute kidney injury, acute tubular necrosis, currently improved significantly mostly associated with COVID pneumonia and contrast induced nephropathy. Serum creatinine down to 1.17 yesterday. No labs available today. 2. Hyperkalemia associated with acute kidney injury, currently improved. Blood sugars have not been elevated. The patient is receiving Nepro tube feedings. Check labs tomorrow. 3. Acute hypoxic respiratory failure secondary to COVID pneumonia and pulmonary embolism status post trach and PEG. 4. Right pulmonary embolism, maintained on anticoagulation. PLAN: Check labs in a.m. MMODL / IJN: [id number] /
[2021-08-19 17:31] LABS: Glucose,Whole Blood 94 mg/dL (75-99)
--- NOTE | 2021-08-19 17:37 | P.PN ---
Subjective Progress Note Date: 08/19/21 Principal diagnosis: COVID-19 bilateral pneumonia Acute hypoxic respiratory failure 31 years old -[place] man with no significant past medical history presents with dyspnea which started yesterday associated with fever and coughing. Patient tested positive for covid earlier on Thursday after he felt with fever and cough on Thursday but at that time he was not dyspneic. He denies chest pain or abdominal pain but he has diarrhea on and off. No vomiting. He is saturating 89% on 6 L oxygen via nasal cannula, afebrile. Tachypneic with a breathing rate at 23. CBC, is unremarkable. INR is normal at 1.0. Sodium is 1:30, creatinine normal at 1.1, glucose 103. AST is mildly elevated 106 and ALT mildly elevated 106. Elevated lactate dehydrogenase 2600 and C-reactive protein 20.3. Cholelithiasis positive EKG shows sinus tachycardia and [address]-T changes Chest x-ray showing bilateral infiltrates 08/03/2021 patient is seen and evaluated ; continues to have difficulty breathing secondary to COVID-19 pneumonia. Earlier this morning at around 4 AM, the patient had a spell where he had an increased cough and in between he was unable to catch his breath and the patient desaturated. At that point, he was placed on BiPAP. He was quite hypoxic and he gradually build himself up and currently is back on 14/7 cm of water with an FiO2 of 90%. He is currently holding his BiPAP mask on his face. He is comfortable. He is also willing to consider to go back on high flow oxygen in addition to 100% on a beta facemask. --He remains on Decadron 6 mg on a daily basis. He remains on Baricitinib 4 mg on a daily basis. He remains on Lovenox 40 mg subcu on a daily basis. Labs are reviewed and reveal white cell count is at 9.8 with hemoglobin of 12.1. His d-dimer from 08/01/2021 was 1.87. Creatinine is at 1.09 with a BUN of 30 and the rest of the electrodes are all within normal limits. He is afebrile. He is tolerating his diet as the patient is able to eat in between different modes of oxygen delivery. He did have a spike of temperature of 11.6 yesterday. He is tachypneic his breathing is labored. Continue BiPAP treatment alternating with high flow oxygen at 6 L with an FiO2 of 90% Will monitor this patient on the medical floor and transferred to the intensive care unit if there is any worsening 08/04/2021 the patient is somewhat better compared to yesterday. - The patient gradually improved since then and currently is on high flow oxygen and 60 L of FiO2 of 90% in addition to 100% nonrebreather facemask; He remains on Decadron 6 mg on a daily basis and addition to Baricitinib 4 mg by mouth rachna; Lovenox and the dose is adjusted to 60 mg subcu every 12 hours because of an elevated d-dimer of 14.3. Meanwhile, his LDH still elevated at 2954 and a CRP still elevated at 13.8. Platelet electrodes are all within normal limits. His white cell count of 15.3 with hemoglobin of 13.4. Chest x- ray from today was reviewed and was compared to the earlier chest x-ray showed improvement in the inspiratory effort and there is also improvement in the right basilar consolidation. However there is still persistent and diffuse breath and pulmonary infiltrates perihilar and lower lobes bilaterally. Patient is awake and alert. No altered mentation. No other new complaints otherwise for now. 08/16/2021 The patient was admitted to the hospital with coronavirus associated pneumonia; moved to the intensive care unit on August 06, and intubated on the same day. He remains on the mechanical ventilator. --On August 14, the patient underwent tracheostomy. The PEG tube was attempted, but was not able to be done. Ventilator settings include the volume assist control mode White count 15.7, hemoglobin 7.5, hematocrit 23.9, platelet count 429,000. D- dimer was 5.08. Sodium 137, potassium 4.7, chlorides 107, CO2 24, anion gap is 6, BUN 41, creatinine 1.30. Albumin is 2.8. C-reactive protein is 3.8. Chest x-ray shows diffuse bilateral infiltrates. No change in chest x-ray compared to prior x-rays. Patient remains in intensive care unit with critical care on board; remains on IV Zosyn and Levaquin; cultures are negative so far; critical coronary recommending to continue with current management at this time 08/17/2021 Patient is seen and evaluated in ICU; remains on the mechanical ventilator; patient underwent tracheostomy. Arterial blood gases show pO2 of 81, pCO2 48, and a pH is 7.36. The patient's on saline at 20 mL an hour, fentanyl at 4 mcg/kg/h, propofol at 75 mcg/kg/m, Nimbex at 3 g kilogram per minute, and tube feedings with Nepro at 14 mL an hour, which is goal. Last night, because of bleeding around the tracheostomy site, patient received 1 unit of packed red blood cells, 1 unit of platelets, and protamine sulfate. lab review revealsWhite count is 15.2, hemoglobin 7.7, hematocrit 24.6, and platelet count 348,000. Sodium 135, potassium 4.7, chlorides 107, CO2 25, anion gap 3, BUN 32, creatinine 1.26. Chest x-ray from today, shows stable bilateral pulmonary infiltrates. patient underwent a trial of discontinuing Nimbex; it was restarted once patient became tachypneic 08/18/2021 Patient is seen and evaluated in ICU; remains intubated and mechanically ventilated; remains sedated - patient underwent tracheostomy tube placement on 08/14/2021. A PEG tube was attempted, but was unsuccessful; surgery on board. - labs are reviewed and reveal a white count of 14.7 in room 8.7 hematocrit 27.5 and a platelet count 349,000. Sodium potassium chloride CO2 all normal. Anion gap 6. BUN 28, creatinine 1.16. Albumin was 3.1. Chest x-ray continues to show diffuse bilateral patchy infiltrates. There is also the presence of the midline tracheostomy tube. Patient remains on labetalol for blood pressure control But intensive care service patient has not been able to tolerate a holiday from Nimbex; remains critically ill 08/19/2021 Patient remains in ICU and remains intubated and mechanically ventilated; remains sedated Patient is evaluated by general surgery to reassess possible PEG tube placement; patient is currently on tube feeding with nephro lab review shows a white blood count of 11.6, hemoglobin 7.6 and platelet count of 294 nephrology on board for acute renal injury, acute tubular necrosis; with creatinine down to 1.17 Objective - Vital Signs Vital signs: Vital Signs Temp 98.3 F 08/19/21 12:00 Pulse 98 08/19/21 12:00 Resp 38 H 08/19/21 12:00 BP 168/90 08/19/21 12:00 Pulse Ox 89 L 08/19/21 12:00 Intake & Output 08/18/21 08/19/21 08/19/21 18:59 06:59 18:59 Intake Total 2910.213 2379.854 1154.846 Output Total 1705 1905 915 Balance 1205.213 474.854 239.846 Weight 123.4 kg 123.4 kg Intake: IV 276 276 123 Sodium Chloride 0.9% 1, 240 240 120 000 ml @ 20 mls/hr IV . Q24H [facility] Rx#:[id number] pressure bag .9 36 36 3 Intake, IV Titration 2248.213 3675.245 9459.846 Amount Cisatracurium 200 mg In 376.875 291.95 188.291 Sodium Chloride 0.9% 180 ml @ 1 MCG/KG/MIN 7.893 mls/hr IV .Q24H [facility] Rx#: [id number] Clevidipine Butyrate 25 159.133 mg In Empty Bag 1 bag @ 1 MG/HR 2 mls/hr IV .Q24H [facility] Rx#:[id number] Heparin Sod,Pork in 0.45% 141.5 169.876 47.935 NaCl 25,000 unit In 0.45 % NaCl 1 250ml.bag @ 8.19 UNITS/KG/HR 10 mls/hr IV .Q24H [facility] Rx#:[id number] fentaNYL (PF). 2,500 mcg 997.628 747.189 482.719 In Sodium Chloride 0.9% 200 ml @ 0.5 MCG/KG/HR 6. 577 mls/hr IV .Q24H [facility] Rx#:[id number] propofoL 1,000 mg In 573.077 577.839 298.901 Empty Bag 1 bag @ Titrate IV .Q0M [facility] Rx#: [id number] Tube Feeding 196 182 14 Other 190 135 Output: Urine 1705 1905 915 Other: Voiding Method Indwelling Catheter Indwelling Catheter Indwelling Catheter ABP, PAP, CO, CI - Last Documented Arterial Blood Pressure 147/70 - Exam GENERAL: The patient is alert and oriented x3, not in any acute distress. Well developed, well nourished. HEENT: Pupils are round and equally reacting to light. EOMI. No scleral icterus. No conjunctival pallor. Normocephalic, atraumatic. No pharyngeal erythema. No thyromegaly. CARDIOVASCULAR: S1 and S2 present. No murmurs, rubs, or gallops. -PULMONARY: Chest is clear to auscultation, no wheezing bilateral crepitation, tachypnea ABDOMEN: Soft, nontender, nondistended, normoactive bowel sounds. No palpable organomegaly. MUSCULOSKELETAL: No joint swelling or deformity. EXTREMITIES: No cyanosis, clubbing, or pedal edema. NEUROLOGICAL: Gross neurological examination did not reveal any focal deficits. SKIN: No rashes. No petechiae - Labs CBC & Chem 7: 08/19/21 04:20 08/18/21 05:15 Labs: Abnormal Lab Results - Last 24 Hours (Table) 08/18/21 08/18/21 08/19/21 Range/Units 04:25 18:13 00:00 WBC (3.8-10.6) k/uL RBC (4.30-5.90) m/uL Hgb (13.0-17.5) gm/dL Hct (39.0-53.0) % MCHC (31.0-37.0) g/dL RDW (11.5-15.5) % Neutrophils # (1.3-7.7) k/uL APTT (22.0-30.0) sec ABG pCO2 (35-45) mmHg ABG pO2 (83-108) mmHg ABG HCO3 (21-25) mmol/L ABG Total CO2 (19-24) mmol/L ABG O2 Saturation (94-97) % POC Glucose (mg/dL) 100 H 107 H (75-99) mg/dL Procalcitonin 0.25 H (0.02-0.09) ng/mL 08/19/21 08/19/21 08/19/21 Range/Units 04:20 05:35 05:57 WBC 11.6 H (3.8-10.6) k/uL RBC 2.65 L (4.30-5.90) m/uL Hgb 7.6 L (13.0-17.5) gm/dL Hct 25.4 L (39.0-53.0) % MCHC 29.8 L (31.0-37.0) g/dL RDW 20.5 H (11.5-15.5) % Neutrophils # 9.5 H (1.3-7.7) k/uL APTT (22.0-30.0) sec ABG pCO2 48 H (35-45) mmHg ABG pO2 67 L (83-108) mmHg ABG HCO3 26 H (21-25) mmol/L ABG Total CO2 28 H (19-24) mmol/L ABG O2 Saturation 93.2 L (94-97) % POC Glucose (mg/dL) 101 H (75-99) mg/dL Procalcitonin (0.02-0.09) ng/mL 08/19/21 Range/Units 06:55 WBC (3.8-10.6) k/uL RBC (4.30-5.90) m/uL Hgb (13.0-17.5) gm/dL Hct (39.0-53.0) % MCHC (31.0-37.0) g/dL RDW (11.5-15.5) % Neutrophils # (1.3-7.7) k/uL APTT 34.9 H (22.0-30.0) sec ABG pCO2 (35-45) mmHg ABG pO2 (83-108) mmHg ABG HCO3 (21-25) mmol/L ABG Total CO2 (19-24) mmol/L ABG O2 Saturation (94-97) % POC Glucose (mg/dL) (75-99) mg/dL Procalcitonin (0.02-0.09) ng/mL Assessment and Plan Assessment: Acute bilateral Covid pneumonia Acute hypoxic respiratory failure Elevated inflammatory markers Obesity with BMI of 49.8 Plan: This is a pleasant 31 years old male who presents with bilateral Covid pneumonia and hypoxia. Continue with oxygen as needed Continue With dexamethasone and Lovenox. Continue with vitamin C, vitamin D and zinc c/w baricitinib Pulmonary consult Labs and medication were reviewed.. Continue same treatment. Continue with symptomatic treatment. Resume home medication. Monitor lytes and vitals. DVT and GI prophylaxis. Further recommendations depends on the clinical course of the patient DVT prophylaxis: Subcutaneous Lovenox GI Prophylaxis: Pepcid Prognosis is guarded
[2021-08-19 23:45] LABS: C Reactive Protein 3.7 mg/dL (<1.0)
[2021-08-20] MEDS: fentaNYL (PF). 2,500 MCG in SODIUM CHLORIDE 0.9% 200 ML IV SCH ×9 (00:12→22:37)
[2021-08-20] MEDS: ARTIFICIAL TEARS-HYPROMELLOSE DROPS 15 ML BTL BOTH EYES SCH ×3 (00:14→07:49)
[2021-08-20] MEDS: INSULIN ASPART (NovoLOG) 100 UNIT/ML VIAL SQ SCH ×4 (00:52→17:31)
[2021-08-20] MEDS: hydrALAZINE HCL 25 MG TAB PO PRN (04:51)
[2021-08-20] MEDS: LABETALOL 5 MG/ML VIAL MDV IVP PRN (05:25)
[2021-08-20] MEDS ORDERED: LORazepam 2 MG/ML INJ IV PRN (05:33)
[2021-08-20 05:42] LABS: African American GFR (CKD) >90 (>60 ml/min/1.73 sqM); Anion Gap 5 mmol/L; Blood Urea Nitrogen 25 mg/dL (9-20); Calcium 8.9 mg/dL (8.4-10.2); Carbon Dioxide 25 mmol/L (22-30); Chloride 105 mmol/L (98-107); Glucose 96 mg/dL (74-99); LDH 810 U/L (313-618); Non-African American GFR(CKD) 83 (>60 ml/min/1.73 sqM); Potassium 4.8 mmol/L (3.5-5.1); Sodium 135 mmol/L (137-145)
[2021-08-20 06:02] LABS: ABG HCO3 27 mmol/L (21-25); ABG Oxygen Saturation 89.7 % (94-97); ABG PCO2 52 mmHg (35-45); ABG PH 7.32 (7.35-7.45); ABG PO2 60 mmHg (83-108); ABG TCO2 29 mmol/L (19-24); Allen Test Performed? Yes
[2021-08-20] MEDS: ALBUTEROL HFA INHALER INHALATION PRN ×3 (07:47→21:03)
[2021-08-20 08:36] LABS: Anisocytosis Moderate; HCT 27.8 % (39.0-53.0); Hypochromasia Marked; MCH 30.6 pg (25.0-35.0); MCHC 32.4 g/dL (31.0-37.0); MCV 94.4 fL (80.0-100.0); Macrocytosis Slight; Mean Platelet Volume 10.6; Platelet Count 277 k/uL (150-450); Poikilocytosis Slight; RBC 2.95 m/uL (4.30-5.90); RDW 20.6 % (11.5-15.5)
[2021-08-20] MEDS: HEPARIN SOD,PORK IN 0.45% NACL 25,000 UNIT in 0.45% NACL 1 250ML.BAG IV SCH ×2 (09:00→14:47)
[2021-08-20] MEDS: CHOLECALCIFEROL 25 MCG (1000 IU) TABLET PO SCH (09:01)
[2021-08-20] MEDS: ASCORBIC ACID 500 MG TAB PO SCH (09:01)
--- NOTE | 2021-08-20 09:01 | P.PN ---
Subjective Progress Note Date: 08/20/21 31-year-old black male, being seen in follow-up in the intensive care unit as the patient is a case of COVID-19 related pneumonia complicated by prolonged respiratory failure,. He was admitted to the hospital on July 31 with coronavirus associated pneumonia. On August 06, because of worsening hypoxemic respiratory failure, the patient was moved to the ICU and intubated. On August 14, the patient underwent tracheostomy tube placement. A PEG tube was attempted, but could not be performed because of anatomic reasons. On 08/19/2021, the patient remains on the volume assist control mode, rate 38, tidal volume 375, FiO2 50%, PEEP of 15. The patient is currently on fentanyl at 5.5 mcg/kg/h, Nimbex at 4 mcg/kg/m, propofol at 75 mcg/kg/m, Cleveprex is off , Nepro, at 14 mL an hour which is goal. Chest x-ray continues to show diffuse bilateral patchy infiltrates. There is also the presence of the midline tracheostomy tube. The patient has a Bivona #9 tube. The patient remains on steroids and the patient is receiving Decadron 6 mg IV every [address] angiogram that was done on 08/06/2021 showed at least 2 nonobstructing thrombus in the right lung pulmonary artery. No mediastinal lymphadenopathy. There was evidence of groundglass bilateral pulmonary infiltrates consistent with COVID-19 related pneumonia. The Doppler of the lower extremity that was done back then was also negative for DVTs. Most recent d-dimer from 08/16/2021 showed a level of 5.08. Patient remains on IV heparin for now. He was started on metoprolol 25 mg by mouth twice a day and hydralazine 25 mg by mouth 4 times a day, when necessary and Trandate when necessary. Clevidipine drip is being weaned off. The pro-calcitonin levels from 08/18/2021 was 0.25. The highest level of pro-calcitonin was on 08/08/2021 with a level was as high as 5.5 and subsequently leveled off. The patient is still on a combination of antibiotics including Zosyn and Levaquin. All of the cultures of been negative. The chest x-ray showing bilateral pulmonary infiltrates. Tracheostomy tube is in a good location. No other complications. No pneumothorax. No pleural effusion. No consolidation. There is diffuse bilateral pulmonary infiltration. The blood gases from today showing a pH of 7.35 with a pCO2 of 48 and pO2 of 67. This was on FiO2 of 50% with a PEEP of 15. The patient remains on IV heparin. No evidence of any bleeding around the tracheostomy tube. We have opted to keep him on IV heparin rather than long-acting anticoagulation due to bleeding complications. The patient has a left upper extremity PICC line. Patient has a Lees catheter in place. The patient also has an arterial line and a right radial. The inflammatory markers in general were downtrending. 19 2020, I'm seeing the patient for a follow-up. The patient remains intubated on a mechanical ventilator for COVID-19 related pneumonia/ARDS. This morning, he remains and essentially the same ventilator support and settings with a rate of 38, tidal volume of 375, FiO2 of 70% with a PEEP of 15. The patient has a #91 a tracheostomy tube in place. Chest x-ray was not done from today. Yesterday's chest x-ray was noted on the tracheostomy tube was in a good location. In terms of airway pressures, his peak pressures 32, static pressure is 9. The blood gases from today showed a pH of 7.32 with a pCO2 of 52 and pO2 of 60. Nevertheless, the pulse ox on the monitor is around 100%. Based on that, I gradually wean down the FiO2 down to 50% and I dropped the PEEP down to 14. The patient is currently off paralytics. He was taken off paralytics yesterday. At one point he became asynchronous with a mechanical ventilator and he was given Ativan overnight at a total of 2 mg. He is currently on propofol running at 75 mcg/kg per minute. His fentanyl is running at 8.5 mcg/kg/h. He is off Cleviprex. He is also receiving enteral feeding for insertion support with Nepro at the rate of 12 mL an hour. He remains on Decadron 6 mg IV every 12 hours. His anticoagulation was held yesterday bleed. The patient was found to have some occult blood in the stool. Hemoglobin today is stable at 9.0 and we have not witnessed any form of GI bleeding. Based on this, IV heparin will be restarted. D-dimer today's of 4.9. His inflammatory markers showed an LDH of 810 and is coming down compared to earlier values and his CRP level is 4.0. His pro-calcitonin level was low and antibiotics were discontinued. He continues to have a PICC line in his left upper extremity, arterial line in his right radial. Inflammatory markers are downtrending. He has a NG tube in place. General surgeries on the case for a possible PEG tube insertion of a later stage. Objective - Vital Signs Vital signs: Vital Signs Temp 99.5 F 08/20/21 04:00 Pulse 87 08/20/21 07:00 Resp 38 H 08/20/21 07:00 BP 168/90 08/19/21 12:00 Pulse Ox 100 08/20/21 08:00 Intake & Output 08/19/21 08/20/21 08/20/21 18:59 06:59 18:59 Intake Total 2197.766 2532.458 431.239 Output Total 1605 2195 350 Balance 592.766 337.458 81.239 Weight 123.4 kg 126.3 kg Intake: IV 243 273 43 Sodium Chloride 0.9% 1, 240 240 40 000 ml @ 20 mls/hr IV . Q24H [facility] Rx#:[id number] pressure bag .9 3 33 3 Intake, IV Titration 0851.652 6951.458 376.239 Amount Cisatracurium 200 mg In 198.157 Sodium Chloride 0.9% 180 ml @ 1 MCG/KG/MIN 7.893 mls/hr IV .Q24H [facility] Rx#: [id number] Heparin Sod,Pork in 0.45% 250.000 124.575 NaCl 25,000 unit In 0.45 % NaCl 1 250ml.bag @ 8.19 UNITS/KG/HR 10 mls/hr IV .Q24H [facility] Rx#:[id number] fentaNYL (PF). 2,500 mcg 982.719 990.940 276.239 In Sodium Chloride 0.9% 200 ml @ 0.5 MCG/KG/HR 6. 577 mls/hr IV .Q24H [facility] Rx#:[id number] propofoL 1,000 mg In 509.890 643.943 100 Empty Bag 1 bag @ Titrate IV .Q0M [facility] Rx#: [id number] Tube Feeding 14 140 12 Other 360 Output: Urine 1605 2195 350 Other: Voiding Method Indwelling Catheter Indwelling Catheter # Bowel Movements 1 ABP, PAP, CO, CI - Last Documented Arterial Blood Pressure 99/50 - Exam No acute distress, sedated and off paralytic, with a midline tracheostomy tube. Head exam was generally normal. There was no scleral icterus or corneal arcus. Mucous membranes were moist. Neck was supple and without jugular venous distension, thyromegaly, or carotid bruits. Carotids were easily palpable bilaterally. There was no adenopathy. The patient is a tracheostomy and a tracheostomy is clean Lungs sounds are diminished bilaterally patient has coarse crackles throughout the lung stevens Cardiac exam revealed the PMI to be normally situated and sized. The rhythm was regular and no extrasystoles were noted during several minutes of auscultation. The first and second heart sounds were normal and physiologic splitting of the second heart sound was noted. There were no murmurs, rubs, clicks, or gallops. Abdominal exam revealed normal bowel sounds. The abdomen was soft, non-tender, and without masses, organomegaly, or appreciable enlargement of the abdominal aorta. Examination of the extremities revealed easily palpable radial, femoral and pedal pulses. There was no cyanosis, clubbing or edema. Examination of the skin revealed no evidence of significant rashes, suspicious appearing nevi or other concerning lesions. Neurologically the patient sedated and off paralytic - Labs CBC & Chem 7: 08/20/21 04:43 08/20/21 04:43 Labs: Abnormal Lab Results - Last 24 Hours (Table) 08/19/21 08/19/21 08/20/21 Range/Units 14:00 22:13 04:43 WBC (3.8-10.6) k/uL RBC (4.30-5.90) m/uL Hgb (13.0-17.5) gm/dL Hct (39.0-53.0) % RDW (11.5-15.5) % APTT 38.9 H (22.0-30.0) sec D-Dimer 4.93 H (<0.60) mg/L FEU ABG pH (7.35-7.45) ABG pCO2 (35-45) mmHg ABG pO2 (83-108) mmHg ABG HCO3 (21-25) mmol/L ABG Total CO2 (19-24) mmol/L ABG O2 Saturation (94-97) % Sodium (137-145) mmol/L BUN (9-20) mg/dL Lactate Dehydrogenase 820 H (313-618) U/L C-Reactive Protein 3.7 H (<1.0) mg/dL 08/20/21 08/20/21 08/20/21 Range/Units 04:43 04:43 06:00 WBC 11.4 H (3.8-10.6) k/uL RBC 2.95 L (4.30-5.90) m/uL Hgb 9.0 L (13.0-17.5) gm/dL Hct 27.8 L (39.0-53.0) % RDW 20.6 H (11.5-15.5) % APTT (22.0-30.0) sec D-Dimer (<0.60) mg/L FEU ABG pH 7.32 L (7.35-7.45) ABG pCO2 52 H (35-45) mmHg ABG pO2 60 L (83-108) mmHg ABG HCO3 27 H (21-25) mmol/L ABG Total CO2 29 H (19-24) mmol/L ABG O2 Saturation 89.7 L (94-97) % Sodium 135 L (137-145) mmol/L BUN 25 H (9-20) mg/dL Lactate Dehydrogenase 810 H (313-618) U/L C-Reactive Protein 4.0 H (<1.0) mg/dL Assessment and Plan Plan: 1 Acute hypoxemic respiratory failure secondary to coronavirus associated pneumonia, status post intubation and mechanical ventilation on August 06. Status post tracheostomy tube insertion, 08/14/2021. Unfortunately, PEG tube could not be placed on that same day. The patient remains on a mechanical ventilator. The patient is being ventilated with a low tidal volume strategy. . Blood gases was noted. Chest x-ray was noted. The patient remains on Decadron. The antibiotics have been discontinued as the patient had shown no evidence of any infection. He remains on Decadron 6 mg every 12 hours. This will be weaned down to once a day. 2 Acute respiratory distress syndrome. The patient remains on low tidal volume high PEEP mechanical ventilation. We are allowing permissive hypercapnia. Chest x-ray was noted. Blood gases was noted. Ever pressures improved compared to yesterday. His static pressures down to 29. I will lower down the PEEP down to 14 and gradually wean down the FiO2 down to 50%. Follow-up blood gases will be obtained. He is on Decadron and the dose will be modified., Hemoglobin is stable 3 Elevated inflammatory marker secondary to coronavirus infection. The inflammatory markers are essentially downtrending 4 Acute/subacute pulmonary embolism. This was identified on a CT angios gram of the chest at the time of admission. Doppler of the lower extremities were negative and the patient remains on IV heparin. 5 Elevated liver enzymes secondary to coronavirus infection. 6 Morbid obesity. 7 hypertension off Cleviprex drip 8 acute kidney injury, improved 9 anemia, multifactorial, no signs of any acute bleeding and the patient remains on IV heparin 10 enteral feeding for nutritional support and the patient is currently receiving Nepro at 14 and his last bowel movement was on 08/16/2021, the patient had a lifetime of the abdomen showed some nonspecific dilation of the large bowel. The patient was given laxative and he had a normal adequate bowel activity. Plan The patient is currently off paralytics Continue propofol and fentanyl for now Drop the FiO2 down to 50%. Drop the PEEP down to 14 and obtain a blood gas at around noontime and reports me back the results of the blood gases. This was communicated the respiratory therapist. ContinueDecadron and drop the dose to explain milligram once a day The patient is currently off antibiotics Continue enteral feeding for nutritional support The patient was given laxative yesterday and the patient had adequate stooling, continues the laxatives for now Recheck inflammatory markers Continued IV heparin for today Renal function continues to improve No signs of any fluid overload. Family was updated and will continue to follow and make further recommendations based on his progress. This is a critically care evaluation was done and more than 30 minutes. Time with Patient: Greater than 30
[2021-08-20] MEDS: METOPROLOL TARTRATE 25 MG TAB PO SCH ×2 (09:02→22:34)
[2021-08-20] MEDS: SENNOSIDES-DOCUSATE SODIUM 1 EACH TAB PO SCH (09:02)
[2021-08-20] MEDS: bisacodyL 10 MG SUPP RECTAL SCH (09:02)
[2021-08-20] MEDS: PANTOPRAZOLE 40 MG/10 ML VIAL IVP SCH ×2 (09:02→22:35)
[2021-08-20] MEDS: ZINC SULFATE 220 MG CAP PO SCH (09:02)
[2021-08-20] MEDS: amLODIPine 5 MG TAB PO SCH (09:03)
[2021-08-20] MEDS: CHLORHEXIDINE GLUCONATE 15 ML CUP MUCOUS MEM SCH ×2 (09:03→22:35)
[2021-08-20] MEDS: DEXAMETHASONE SOD PHOSPHATE 10 MG/ML 1 ML VIAL IV SCH (09:04)
[2021-08-20 09:05] LABS: Band Neutrophils % 3 %; Eosinophils # (M) 0.23 k/uL (0-0.7); Lymphocytes # (M) 0.57 k/uL (1.0-4.8); Metamyelocytes # (M) 0.11 k/uL (0); Metamyelocytes % 1 %; Monocytes # (M) 0.34 k/uL (0-1.0); Myelocytes # (M) 0.34 k/uL (0); Myelocytes % 3 %; Neutrophils % (M) 86 %; Nucleated Red Blood Cells 1 /100 WBC (0-0); Total Cells Counted 200; WBC 11.3 k/uL (3.8-10.6)
[2021-08-20 09:07] LABS: Polychromasia Present
--- NOTE | 2021-08-20 09:29 | XR ---
EXAMINATION TYPE: XR chest 1V portable DATE OF EXAM: 08/20/2021 Comparison: 08/18/2021 Clinical History: 31-year-old male covid 19 Findings: Tracheostomy cannula. NG tube courses below the diaphragm. Heart upper limits of normal in size. Inte rstitial opacities bilaterally persist with a patchy left basilar opacity. No significant change. Lef t PICC tip likely upper SVC level. Impression: Continued bilateral interstitial COVID infiltrates. Patchy left basilar infiltrate also similar.
[2021-08-20] MEDS ORDERED: LORazepam 2 MG/ML INJ ONE (09:36)
[2021-08-20] MEDS ORDERED: LORazepam 2 MG/ML INJ IV STA (09:40)
[2021-08-20] MEDS ORDERED: FUROSEMIDE 10 MG/ML 4 ML VIAL IV STA (10:25)
--- NOTE | 2021-08-20 11:00 | P.PN ---
Subjective Progress Note Date: 08/20/21 CHIEF COMPLAINT: COVID-19 pneumonia HISTORY OF PRESENT ILLNESS: Patient remains in the ICU on mechanical ventilation. He is status post tracheostomy placementon 08/14/21. PEG tube was not placed due to nonvisualization of light reflex to the stomach during EGD. And currently receiving tube feedings through NG tube. Patient is out of isolation. He is having bowel movements. Afebrile. WBC 11.3 PHYSICAL EXAM: VITAL SIGNS: Reviewed. GENERAL: Well-developed in no acute distress. HEENT: No sclera icterus. Extraocular movements grossly intact. Moist buccal mucosa. Head is atraumatic, normocephalic. Tracheostomy site clean dry and intact ABDOMEN: Soft. distended NEUROLOGIC: Intubated and sedated ASSESSMENT: 1. Acute hypoxic respiratory failure due to COVID-19 pneumonia with prolonged mechanical intubation. Status post tracheostomy placement 2. Severe protein calorie malnutrition. PEG tube insertion aborted on 08/14/2021. Unable to visualize light reflex. PLAN: -Plan for EGD with PEG tube placement tomorrow, 08/21/[address] Green -Hold IV heparin starting at 9 AM tomorrow -Hold tube feedings after midnight Physician Director Product note has been reviewed by physician. Signing provider agrees with the documented findings, assessment, and plan of care. Objective - Vital Signs Vital signs: Vital Signs Temp 99.3 F 08/20/21 08:00 Pulse 105 H 08/20/21 10:00 Resp 38 H 08/20/21 10:00 BP 160/81 08/20/21 10:00 Pulse Ox 99 08/20/21 10:00 Intake & Output 08/19/21 08/20/21 08/20/21 18:59 06:59 18:59 Intake Total 2197.766 2532.458 793.615 Output Total 1605 2195 625 Balance 592.766 337.458 168.615 Weight 123.4 kg 126.3 kg Intake: IV 243 273 83 Sodium Chloride 0.9% 1, 240 240 80 000 ml @ 20 mls/hr IV . Q24H [facility] Rx#:[id number] pressure bag .9 3 33 3 Intake, IV Titration 9584.215 6202.458 698.615 Amount Cisatracurium 200 mg In 198.157 Sodium Chloride 0.9% 180 ml @ 1 MCG/KG/MIN 7.893 mls/hr IV .Q24H [facility] Rx#: [id number] Heparin Sod,Pork in 0.45% 250.000 124.575 NaCl 25,000 unit In 0.45 % NaCl 1 250ml.bag @ 8.19 UNITS/KG/HR 10 mls/hr IV .Q24H [facility] Rx#:[id number] fentaNYL (PF). 2,500 mcg 982.719 990.940 498.615 In Sodium Chloride 0.9% 200 ml @ 0.5 MCG/KG/HR 6. 577 mls/hr IV .Q24H [facility] Rx#:[id number] propofoL 1,000 mg In 509.890 643.943 200 Empty Bag 1 bag @ Titrate IV .Q0M [facility] Rx#: [id number] Tube Feeding 14 140 12 Other 360 Output: Urine 1605 2195 625 Other: Voiding Method Indwelling Catheter Indwelling Catheter # Bowel Movements 1 ABP, PAP, CO, CI - Last Documented Arterial Blood Pressure 111/68 - Labs CBC & Chem 7: 08/20/21 04:43 08/20/21 04:43 Labs: Abnormal Lab Results - Last 24 Hours (Table) 08/19/21 08/19/21 08/20/21 Range/Units 14:00 22:13 04:43 WBC (3.8-10.6) k/uL RBC (4.30-5.90) m/uL Hgb (13.0-17.5) gm/dL Hct (39.0-53.0) % RDW (11.5-15.5) % Neutrophils # (Manual) (1.3-7.7) k/uL Lymphocytes # (Manual) (1.0-4.8) k/uL Metamyelocytes # (Man) (0) k/uL Myelocytes # (Manual) (0) k/uL Nucleated RBCs (0-0) /100 WBC APTT 38.9 H (22.0-30.0) sec D-Dimer 4.93 H (<0.60) mg/L FEU ABG pH (7.35-7.45) ABG pCO2 (35-45) mmHg ABG pO2 (83-108) mmHg ABG HCO3 (21-25) mmol/L ABG Total CO2 (19-24) mmol/L ABG O2 Saturation (94-97) % Sodium (137-145) mmol/L BUN (9-20) mg/dL Lactate Dehydrogenase 820 H (313-618) U/L C-Reactive Protein 3.7 H (<1.0) mg/dL Triglycerides 305.00 H (0.00-149.00) mg/dL 08/20/21 08/20/21 08/20/21 Range/Units 04:43 04:43 06:00 WBC 11.3 H (3.8-10.6) k/uL RBC 2.95 L (4.30-5.90) m/uL Hgb 9.0 L (13.0-17.5) gm/dL Hct 27.8 L (39.0-53.0) % RDW 20.6 H (11.5-15.5) % Neutrophils # (Manual) 10.00 H (1.3-7.7) k/uL Lymphocytes # (Manual) 0.57 L (1.0-4.8) k/uL Metamyelocytes # (Man) 0.11 H (0) k/uL Myelocytes # (Manual) 0.34 H (0) k/uL Nucleated RBCs 1 H (0-0) /100 WBC APTT (22.0-30.0) sec D-Dimer (<0.60) mg/L FEU ABG pH 7.32 L (7.35-7.45) ABG pCO2 52 H (35-45) mmHg ABG pO2 60 L (83-108) mmHg ABG HCO3 27 H (21-25) mmol/L ABG Total CO2 29 H (19-24) mmol/L ABG O2 Saturation 89.7 L (94-97) % Sodium 135 L (137-145) mmol/L BUN 25 H (9-20) mg/dL Lactate Dehydrogenase 810 H (313-618) U/L C-Reactive Protein 4.0 H (<1.0) mg/dL Triglycerides (0.00-149.00) mg/dL
[2021-08-20] MEDS: DEXMEDETOMIDINE/0.9% NACL(PMX) 400 MCG in EMPTY BAG 1 BAG IV SCH ×3 (11:27→22:36)
[2021-08-20] MEDS ORDERED: DEXMEDETOMIDINE/0.9% NACL(PMX) 400 MCG in EMPTY BAG 1 BAG IV SCH (11:30)
[2021-08-20 11:42] LABS: Glucose,Whole Blood 88 mg/dL (75-99)
[2021-08-20 11:53] LABS: ABG HCO3 26 mmol/L (21-25); ABG Oxygen Saturation 88.4 % (94-97); ABG PCO2 51 mmHg (35-45); ABG PH 7.32 (7.35-7.45); ABG TCO2 28 mmol/L (19-24)
[2021-08-20 11:57] LABS: ABG PO2 57 mmHg (83-108)
[2021-08-20 11:58] LABS: Allen Test Performed? no
[2021-08-20] MEDS ORDERED: [UNRECOGNIZED DRUG - OTHER] IV ONE (12:00)
[2021-08-20] MEDS: SODIUM CHLORIDE 0.9% 1,000 ML IV SCH (14:02)
--- NOTE | 2021-08-20 15:18 | PN ---
PROGRESS NOTE The patient is seen for followup for acute kidney injury. He currently remains on the vent. Patient is tolerating tube feeds. He is not maintained on any IV fluids. FiO2 has been at about 50%. Urine output is 150-125 cc/hour. No active bleeding noted. PHYSICAL EXAMINATION: On examination today, blood pressure this morning was 160/81, heart rate 105 per minute. Patient is afebrile. He is noted to have edema in lower extremities. 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 Lungs and heart are not heard due to COVID pneumonia. LAB: Show sodium 135, potassium 4.8, chloride 105, BUN 25, creatinine 1.17, hemoglobin 9.0 g/dL. ASSESSMENT: 1. Acute kidney injury, acute tubular necrosis, currently significantly improved with creatinine down to 1.17. 2. Acute hypoxic respiratory failure secondary to COVID pneumonia. 3. Right pulmonary embolism, maintained on anticoagulation. 4. Mild volume overload. 5. Mild hyperkalemia, currently improved, maintained on Nepro tube feedings. PLAN: Add IV Lasix x1. Continue off of IV fluids. MMODL / IJN: [id number] /
[2021-08-20] MEDS: HEPARIN SODIUM 1,000 UN/ML (10ML VL) IV PRN (15:50)
[2021-08-20 17:29] LABS: Glucose,Whole Blood 111 mg/dL (75-99)
[2021-08-21 00:19] LABS: Glucose,Whole Blood 97 mg/dL (75-99)
[2021-08-21] MEDS: DEXMEDETOMIDINE/0.9% NACL(PMX) 400 MCG in EMPTY BAG 1 BAG IV SCH ×9 (00:42→21:48)
[2021-08-21] MEDS: HEPARIN SOD,PORK IN 0.45% NACL 25,000 UNIT in 0.45% NACL 1 250ML.BAG IV SCH ×2 (00:43→13:50)
[2021-08-21] MEDS: fentaNYL (PF). 2,500 MCG in SODIUM CHLORIDE 0.9% 200 ML IV SCH ×8 (01:09→23:10)
[2021-08-21] MEDS: INSULIN ASPART (NovoLOG) 100 UNIT/ML VIAL SQ SCH ×4 (02:19→18:45)
[2021-08-21 05:22] LABS: Glucose,Whole Blood 106 mg/dL (75-99)
[2021-08-21 05:36] LABS: ABG Base Excess 4.1 mmol/L; ABG HCO3 29 mmol/L (21-25); ABG Oxygen Saturation 95.1 % (94-97); ABG PCO2 44 mmHg (35-45); ABG PH 7.42 (7.35-7.45); ABG PO2 69 mmHg (83-108); ABG TCO2 30 mmol/L (19-24); Allen Test Performed? Yes
[2021-08-21 06:09] LABS: Anisocytosis Moderate; Basophils % (A) 0 %; Eosinophils # (A) 0.2 k/uL (0-0.7); Eosinophils % (A) 2 %; HGB 7.9 gm/dL (13.0-17.5); Hypochromasia Moderate; Lymphocytes # (A) 2.5 k/uL (1.0-4.8); Lymphocytes % (A) 27 %; MCH 28.6 pg (25.0-35.0); MCHC 30.4 g/dL (31.0-37.0); Macrocytosis Slight; Mean Platelet Volume 8.9; Monocytes # (A) 0.4 k/uL (0-1.0); Monocytes % (A) 4 %; Neutrophils # (A) 5.9 k/uL (1.3-7.7); Neutrophils % (A) 64 %; Platelet Count 266 k/uL (150-450); Poikilocytosis Slight; RBC 2.76 m/uL (4.30-5.90); RDW 20.8 % (11.5-15.5); WBC 9.2 k/uL (3.8-10.6)
[2021-08-21] MEDS: LABETALOL 5 MG/ML VIAL MDV IVP PRN ×4 (06:11→17:09)
[2021-08-21 06:23] LABS: Partial Thromboplastin Time 49.1 sec (22.0-30.0)
[2021-08-21 06:58] LABS: African American GFR (CKD) >90 (>60 ml/min/1.73 sqM); Anion Gap 4 mmol/L; Blood Urea Nitrogen 23 mg/dL (9-20); C Reactive Protein 4.8 mg/dL (<1.0); Calcium 8.6 mg/dL (8.4-10.2); Carbon Dioxide 26 mmol/L (22-30); Chloride 106 mmol/L (98-107); Glucose 96 mg/dL (74-99); LDH 728 U/L (313-618); Magnesium 1.7 mg/dL (1.6-2.3); Non-African American GFR(CKD) 83 (>60 ml/min/1.73 sqM); Potassium 3.9 mmol/L (3.5-5.1); Sodium 136 mmol/L (137-145)
--- NOTE | 2021-08-21 07:18 | XR ---
EXAMINATION TYPE: XR chest 1V portable DATE OF EXAM: 08/21/2021 COMPARISON: 08/20/2021 HISTORY: SOB, Follow Up FINDINGS: Indwelling tubes and catheters are unchanged. Scattered reticulonodular infiltrates throughout both lung stevens remain unchanged. Stable appearance of the cardio-mediastinal structures at this time. Pleural effusion unchanged. IMPRESSION: 1. Stable portable chest. Clinical correlation and follow up until resolution is recommended.
[2021-08-21] MEDS: ALBUTEROL HFA INHALER INHALATION PRN ×2 (07:57→21:16)
[2021-08-21] MEDS: ASCORBIC ACID 500 MG TAB PO SCH (08:31)
[2021-08-21] MEDS: SENNOSIDES-DOCUSATE SODIUM 1 EACH TAB PO SCH (08:31)
[2021-08-21] MEDS: CHOLECALCIFEROL 25 MCG (1000 IU) TABLET PO SCH (08:31)
[2021-08-21] MEDS: amLODIPine 5 MG TAB PO SCH (08:31)
--- NOTE | 2021-08-21 08:31 | P.OP ---
Date of Procedure: 08/16/21 Preoperative Diagnosis: Heparin induced bleeding at tracheostomy Postoperative Diagnosis: Heparin-induced bleeding tracheostomy Procedure(s) Performed: Revision tracheostomy Anesthesia: NAYLA Surgeon: Darian Green Estimated Blood Loss (ml): 5 Pathology: none sent Condition: stable Disposition: ICU Indications for Procedure: The patient was on a heparin drip. He started have oozing from his tracheostomy. His heparin drip had stopped. And the patient was given protamine. At the time of surgery there is no obvious bleeding but due to the patient's significant bleeding prior was decided to explore the tracheostomy site. Description of Procedure: The patient's placed on his bed in the supine position. His neck was prepped and draped in sterile fashion. The tracheostomy tie was released. The sutures at the tracheostomy site were cut. A week later retractors placed in the wound. Several clots were removed. There was no active bleeding seen. The skin edges were coagulated. The wound was flushed. No bleeding was seen. The tracheosto my site was then closed with 3-0 nylon. Patient tolerated procedure well.
[2021-08-21] MEDS: DEXAMETHASONE SOD PHOSPHATE 10 MG/ML 1 ML VIAL IV SCH (08:32)
[2021-08-21] MEDS: PANTOPRAZOLE 40 MG/10 ML VIAL IVP SCH ×2 (08:32→21:38)
[2021-08-21] MEDS: METOPROLOL TARTRATE 25 MG TAB PO SCH ×2 (08:32→21:38)
[2021-08-21] MEDS: CHLORHEXIDINE GLUCONATE 15 ML CUP MUCOUS MEM SCH ×2 (08:32→21:37)
[2021-08-21] MEDS: ZINC SULFATE 220 MG CAP PO SCH (08:32)
[2021-08-21] MEDS: bisacodyL 10 MG SUPP RECTAL SCH (08:33)
--- NOTE | 2021-08-21 10:17 | P.PN ---
Subjective Progress Note Date: 08/21/21 31-year-old black male, being seen in follow-up in the intensive care unit as the patient is a case of COVID-19 related pneumonia complicated by prolonged respiratory failure,. He was admitted to the hospital on July 31 with coronavirus associated pneumonia. On August 06, because of worsening hypoxemic respiratory failure, the patient was moved to the ICU and intubated. On August 14, the patient underwent tracheostomy tube placement. A PEG tube was attempted, but could not be performed because of anatomic reasons. On 08/19/2021, the patient remains on the volume assist control mode, rate 38, tidal volume 375, FiO2 50%, PEEP of 15. The patient is currently on fentanyl at 5.5 mcg/kg/h, Nimbex at 4 mcg/kg/m, propofol at 75 mcg/kg/m, Cleveprex is off , Nepro, at 14 mL an hour which is goal. Chest x-ray continues to show diffuse bilateral patchy infiltrates. There is also the presence of the midline tracheostomy tube. The patient has a Bivona #9 tube. The patient remains on steroids and the patient is receiving Decadron 6 mg IV every [address] angiogram that was done on 08/06/2021 showed at least 2 nonobstructing thrombus in the right lung pulmonary artery. No mediastinal lymphadenopathy. There was evidence of groundglass bilateral pulmonary infiltrates consistent with COVID-19 related pneumonia. The Doppler of the lower extremity that was done back then was also negative for DVTs. Most recent d-dimer from 08/16/2021 showed a level of 5.08. Patient remains on IV heparin for now. He was started on metoprolol 25 mg by mouth twice a day and hydralazine 25 mg by mouth 4 times a day, when necessary and Trandate when necessary. Clevidipine drip is being weaned off. The pro-calcitonin levels from 08/18/2021 was 0.25. The highest level of pro-calcitonin was on 08/08/2021 with a level was as high as 5.5 and subsequently leveled off. The patient is still on a combination of antibiotics including Zosyn and Levaquin. All of the cultures of been negative. The chest x-ray showing bilateral pulmonary infiltrates. Tracheostomy tube is in a good location. No other complications. No pneumothorax. No pleural effusion. No consolidation. There is diffuse bilateral pulmonary infiltration. The blood gases from today showing a pH of 7.35 with a pCO2 of 48 and pO2 of 67. This was on FiO2 of 50% with a PEEP of 15. The patient remains on IV heparin. No evidence of any bleeding around the tracheostomy tube. We have opted to keep him on IV heparin rather than long-acting anticoagulation due to bleeding complications. The patient has a left upper extremity PICC line. Patient has a Lees catheter in place. The patient also has an arterial line and a right radial. The inflammatory markers in general were downtrending. 19 2020, I'm seeing the patient for a follow-up. The patient remains intubated on a mechanical ventilator for COVID-19 related pneumonia/ARDS. This morning, he remains and essentially the same ventilator support and settings with a rate of 38, tidal volume of 375, FiO2 of 70% with a PEEP of 15. The patient has a #[address] a tracheostomy tube in [address]. Chest x-ray was not done from today. Yesterday's chest x-ray was noted on the tracheostomy tube was in a good location. In terms of airway pressures, his peak pressures 32, static pressure is 9. The blood gases from today showed a pH of 7.32 with a pCO2 of 52 and pO2 of 60. Nevertheless, the pulse ox on the monitor is around 100%. Based on that, I gradually wean down the FiO2 down to 50% and I dropped the PEEP down to 14. The patient is currently off paralytics. He was taken off paralytics yesterday. At one point he became asynchronous with a mechanical ventilator and he was given Ativan overnight at a total of 2 mg. He is currently on propofol running at 75 mcg/kg per minute. His fentanyl is running at 8.5 mcg/kg/h. He is off Cleviprex. He is also receiving enteral feeding for insertion support with Nepro at the rate of 12 mL an hour. He remains on Decadron 6 mg IV every 12 hours. His anticoagulation was held yesterday bleed. The patient was found to have some occult blood in the stool. Hemoglobin today is stable at 9.0 and we have not witnessed any form of GI bleeding. Based on this, IV heparin will be restarted. D-dimer today's of 4.9. His inflammatory markers showed an LDH of 810 and is coming down compared to earlier values and his CRP level is 4.0. His pro-calcitonin level was low and antibiotics were discontinued. He continues to have a PICC line in his left upper extremity, arterial line in his right radial. Inflammatory markers are downtrending. He has a NG tube in place. General surgeries on the case for a possible PEG tube insertion of a later stage. 08/21/2021, the patient is being seen for a follow-up. Is a case of COVID-19 related pneumonia with ARDS and prolonged respiratory failure and the patient currently has a tracheostomy tube in place and the patient has a number a Bivona tracheostomy tube. For now, the active issue remains his respiratory failure. The patient was taken off the paralytics. We have managed to control his sedation with a combination of drugs including propofol which is running at 65 mcg/kg per minute and his triglyceride level is at 305. He is also on fentanyl are running at 7.5 mcg/kg/h and he is also on Precedex running at 1.3 mcg/kg/h. I think adjustment of the sedation was done based on his hypertensive reaction and synchrony with the mechanical ventilator. Based on this, I suggested using Cleviprex for blood pressure control. I also made some ventilator adjustments to improve his synchrony with the mechanical ventilator. Aspiration. Pressure control mode of mechanical ventilation. Earlier this morning, his blood gases showed a pH of 7.42 with a pCO2 of 44 and pO2 of 69. His peak airway pressure was 33 anesthetic air pressure was 31. In terms of inflammatory markers, the patient's LDH level is down to 728 and his CRP is down to 4.8. His pro- calcitonin level was 0.25. He d-dimer was down to 4.1. He is receiving enteral feeding for nutritional support. He is currently on Nepro at the rate of 40s an hour. Earlier this morning, tube feeds were held in preparation for PEG tube insertion. Otherwise, he is afebrile. No other significant events over the past 24 hours. Tracheostomy site is dry clean and intact. Fluid balance over the past 24 hours is in the order of +930 mL. Objective - Vital Signs Vital signs: Vital Signs Temp 99.6 F 08/21/21 08:00 Pulse 93 08/21/21 09:00 Resp 38 H 08/21/21 09:00 BP 174/90 08/21/21 09:00 Pulse Ox 94 L 08/21/21 09:00 Intake & Output 08/20/21 08/21/21 08/21/21 18:59 06:59 18:59 Intake Total 2930.784 2583.969 506.925 Output Total 4385 1590 275 Balance -1454.216 993.969 231.925 Weight 121.3 kg 121.3 kg Intake: IV 243 296 40 Sodium Chloride 0.9% 1, 240 260 40 000 ml @ 20 mls/hr IV . Q24H [facility] Rx#:[id number] pressure bag .9 3 36 Intake, IV Titration 2063.784 1903.969 466.925 Amount Dexmedetomidine/0.9% NaCl 61.3 338.05 100 (Pmx) 400 mcg In Empty Bag 1 bag @ 0.2 MCG/KG/HR 6 mls/hr IV .[id number] [facility] Rx#:[id number] Heparin Sod,Pork in 0.45% 160.502 225.007 214.315 NaCl 25,000 unit In 0.45 % NaCl 1 250ml.bag @ 8.19 UNITS/KG/HR 10 mls/hr IV .Q24H [facility] Rx#:[id number] fentaNYL (PF). 2,500 mcg 1248.615 999.931 In Sodium Chloride 0.9% 200 ml @ 0.5 MCG/KG/HR 6. 577 mls/hr IV .Q24H [facility] Rx#:[id number] propofoL 1,000 mg In 593.367 340.981 152.610 Empty Bag 1 bag @ Titrate IV .Q0M [facility] Rx#: [id number] Tube Feeding 144 144 Other 480 240 Output: Urine 4385 1590 275 Other: Voiding Method Indwelling Catheter Indwelling Catheter ABP, PAP, CO, CI - Last Documented Arterial Blood Pressure 132/62 - Exam No acute distress, sedated and off paralytic, with a midline tracheostomy tube. Head exam was generally normal. There was no scleral icterus or corneal arcus. Mucous membranes were moist. Neck was supple and without jugular venous distension, thyromegaly, or carotid bruits. Carotids were easily palpable bilaterally. There was no adenopathy. The patient is a tracheostomy and a tracheostomy is clean Lungs sounds are diminished bilaterally patient has coarse crackles throughout the lung stevens Cardiac exam revealed the PMI to be normally situated and sized. The rhythm was regular and no extrasystoles were noted during several minutes of auscultation. The first and second heart sounds were normal and physiologic splitting of the second heart sound was noted. There were no murmurs, rubs, clicks, or gallops. Abdominal exam revealed normal bowel sounds. The abdomen was soft, non-tender, and without masses, organomegaly, or appreciable enlargement of the abdominal aorta. Examination of the extremities revealed easily palpable radial, femoral and pedal pulses. There was no cyanosis, clubbing or edema. Examination of the skin revealed no evidence of significant rashes, suspicious appearing nevi or other concerning lesions. Neurologically the patient sedated and off paralytic - Labs CBC & Chem 7: 08/21/21 05:15 08/21/21 05:15 Labs: Abnormal Lab Results - Last 24 Hours (Table) 08/19/21 08/20/21 08/20/21 Range/Units 22:13 11:52 14:58 RBC (4.30-5.90) m/uL Hgb (13.0-17.5) gm/dL Hct (39.0-53.0) % MCHC (31.0-37.0) g/dL RDW (11.5-15.5) % APTT 38.4 H (22.0-30.0) sec D-Dimer (<0.60) mg/L FEU ABG pH 7.32 L (7.35-7.45) ABG pCO2 51 H (35-45) mmHg ABG pO2 57 L* (83-108) mmHg ABG HCO3 26 H (21-25) mmol/L ABG Total CO2 28 H (19-24) mmol/L ABG O2 Saturation 88.4 L (94-97) % Sodium (137-145) mmol/L BUN (9-20) mg/dL POC Glucose (mg/dL) (75-99) mg/dL Lactate Dehydrogenase (313-618) U/L C-Reactive Protein (<1.0) mg/dL Triglycerides 305.00 H (0.00-149.00) mg/dL 08/20/21 08/21/21 08/21/21 Range/Units 17:28 00:15 05:15 RBC 2.76 L (4.30-5.90) m/uL Hgb 7.9 L (13.0-17.5) gm/dL Hct 26.0 L (39.0-53.0) % MCHC 30.4 L (31.0-37.0) g/dL RDW 20.8 H (11.5-15.5) % APTT 51.2 H (22.0-30.0) sec D-Dimer (<0.60) mg/L FEU ABG pH (7.35-7.45) ABG pCO2 (35-45) mmHg ABG pO2 (83-108) mmHg ABG HCO3 (21-25) mmol/L ABG Total CO2 (19-24) mmol/L ABG O2 Saturation (94-97) % Sodium (137-145) mmol/L BUN (9-20) mg/dL POC Glucose (mg/dL) 111 H (75-99) mg/dL Lactate Dehydrogenase (313-618) U/L C-Reactive Protein (<1.0) mg/dL Triglycerides (0.00-149.00) mg/dL 08/21/21 08/21/21 08/21/21 Range/Units 05:15 05:15 05:21 RBC (4.30-5.90) m/uL Hgb (13.0-17.5) gm/dL Hct (39.0-53.0) % MCHC (31.0-37.0) g/dL RDW (11.5-15.5) % APTT 49.1 H (22.0-30.0) sec D-Dimer 4.10 H (<0.60) mg/L FEU ABG pH (7.35-7.45) ABG pCO2 (35-45) mmHg ABG pO2 (83-108) mmHg ABG HCO3 (21-25) mmol/L ABG Total CO2 (19-24) mmol/L ABG O2 Saturation (94-97) % Sodium 136 L (137-145) mmol/L BUN 23 H (9-20) mg/dL POC Glucose (mg/dL) 106 H (75-99) mg/dL Lactate Dehydrogenase 728 H (313-618) U/L C-Reactive Protein 4.8 H (<1.0) mg/dL Triglycerides (0.00-149.00) mg/dL 08/21/21 Range/Units 05:30 RBC (4.30-5.90) m/uL Hgb (13.0-17.5) gm/dL Hct (39.0-53.0) % MCHC (31.0-37.0) g/dL RDW (11.5-15.5) % APTT (22.0-30.0) sec D-Dimer (<0.60) mg/L FEU ABG pH (7.35-7.45) ABG pCO2 (35-45) mmHg ABG pO2 69 L (83-108) mmHg ABG HCO3 29 H (21-25) mmol/L ABG Total CO2 30 H (19-24) mmol/L ABG O2 Saturation (94-97) % Sodium (137-145) mmol/L BUN (9-20) mg/dL POC Glucose (mg/dL) (75-99) mg/dL Lactate Dehydrogenase (313-618) U/L C-Reactive Protein (<1.0) mg/dL Triglycerides (0.00-149.00) mg/dL Assessment and Plan Plan: 1 Acute hypoxemic respiratory failure secondary to coronavirus associated pneumonia, status post intubation and mechanical ventilation on August 06. Status post tracheostomy tube insertion, 08/14/2021. Unfortunately, PEG tube could not be placed on that same day. The patient remains on a mechanical ventilator. The patient is being ventilated with a low tidal volume strategy. . Blood gases was noted. Chest x-ray was noted. The patient remains on Decadron. The antibiotics have been discontinued as the patient had shown no evidence of any infection. He remains on Decadron 6 mg [id number]. Chest x- ray and a blood gas was noted. Respirations patient from a volume cycled today pressure control mode of ventilation. We'll monitor the blood gases. This was done to improve his synchrony. 2 Acute respiratory distress syndrome. The patient remains on low tidal volume high PEEP mechanical ventilation. We are allowing permissive hypercapnia. Chest x-ray was noted. Blood gases was noted. The chest x-ray still showing diffuse bilateral pulmonary infiltrates. LDH level has dropped significantly. D-dimer is mildly elevated. 3 Elevated inflammatory marker secondary to coronavirus infection. The inflammatory markers are essentially downtrending 4 Acute/subacute pulmonary embolism. This was identified on a CT angios gram of the chest at the time of admission. Doppler of the lower extremities were negative and the patient remains on IV heparin. 5 Elevated liver enzymes secondary to coronavirus infection. 6 Morbid obesity. 7 hypertension started again on Cleviprex drip , he is also on beta blockers and he was taken Lopressor and amlodipine and hydralazine for blood pressure control. 8 acute kidney injury, improved 9 anemia, multifactorial, no signs of any acute bleeding and the patient remains on IV heparin 10 enteral feeding for nutritional support and the patient is currently receiving Nepro at 14 and his last bowel movement was on 08/16/2021, the patient had a lifetime of the abdomen showed some nonspecific dilation of the large bowel. The patient was given laxative and he had a normal adequate bowel activity. This morning, the patient was taken off the IV heparin, she'll feeds on hold in preparation for a PEG tube insertion. Plan The patient is currently off paralytics Continue propofol and fentanyl and Precedex and gradually wean it off as the patient's blood pressure control will be controlled more effectively with Cleviprex. Started on Seroquel 50 mg by mouth twice a day and this will hopefully help us with his agitation and our ability to wean off his sedative medications which has been a combination of fentanyl, Precedex and propofol. Switch this patient to a pressure control mode of ventilation, he'll be on a pressure control of 16, PEEP of 14 with an FiO2 of 50% and the rate of 32. Blood gases are to follow. Continue Decadron 4 milligram once a day The patient is currently off antibiotics Continue enteral feeding for nutritional support, and the patient will be given a PEG tube today The patient was given laxative yesterday and the patient had adequate stooling, continues the laxatives for now Recheck inflammatory markers Renal function continues to improve No signs of any fluid overload. Family was updated and will continue to follow and make further recommendations based on his progress. This is a critically care evaluation was done and more than 30 minutes. Time with Patient: Greater than 30
[2021-08-21] MEDS: CLEVIDIPINE BUTYRATE 25 MG in EMPTY BAG 1 BAG IV SCH (10:24)
[2021-08-21] MEDS: QUEtiapine 50 MG TAB PO SCH ×2 (10:27→21:38)
[2021-08-21] MEDS: hydrALAZINE HCL 50 MG TAB PO SCH ×3 (10:30→22:32)
[2021-08-21 11:42] LABS: Glucose,Whole Blood 110 mg/dL (75-99)
[2021-08-21] MEDS: LABETALOL 200 MG in SODIUM CHLORIDE 0.9% 160 ML IV SCH ×8 (12:00→23:10)
[2021-08-21 12:17] LABS: ABG Base Excess 2.5 mmol/L; ABG HCO3 27 mmol/L (21-25); ABG Oxygen Saturation 97.1 % (94-97); ABG PCO2 41 mmHg (35-45); ABG PH 7.43 (7.35-7.45); ABG PO2 80 mmHg (83-108); ABG TCO2 28 mmol/L (19-24)
[2021-08-21 12:19] LABS: Allen Test Performed? no
--- NOTE | 2021-08-21 13:42 | P.PN ---
Subjective Progress Note Date: 08/20/21 Principal diagnosis: COVID-19 bilateral pneumonia Acute hypoxic respiratory failure 31 years old -[place] man with no significant past medical history presents with dyspnea which started yesterday associated with fever and coughing. Patient tested positive for covid earlier on Thursday after he felt with fever and cough on Thursday but at that time he was not dyspneic. He denies chest pain or abdominal pain but he has diarrhea on and off. No vomiting. He is saturating 89% on 6 L oxygen via nasal cannula, afebrile. Tachypneic with a breathing rate at 23. CBC, is unremarkable. INR is normal at 1.0. Sodium is 1:30, creatinine normal at 1.1, glucose 103. AST is mildly elevated 106 and ALT mildly elevated 106. Elevated lactate dehydrogenase 2600 and C-reactive protein 20.3. Cholelithiasis positive EKG shows sinus tachycardia and [address]-T changes Chest x-ray showing bilateral infiltrates 08/03/2021 patient is seen and evaluated ; continues to have difficulty breathing secondary to COVID-19 pneumonia. Earlier this morning at around 4 AM, the patient had a spell where he had an increased cough and in between he was unable to catch his breath and the patient desaturated. At that point, he was placed on BiPAP. He was quite hypoxic and he gradually build himself up and currently is back on 14/7 cm of water with an FiO2 of 90%. He is currently holding his BiPAP mask on his face. He is comfortable. He is also willing to consider to go back on high flow oxygen in addition to 100% on a beta facemask. --He remains on Decadron 6 mg on a daily basis. He remains on Baricitinib 4 mg on a daily basis. He remains on Lovenox 40 mg subcu on a daily basis. Labs are reviewed and reveal white cell count is at 9.8 with hemoglobin of 12.1. His d-dimer from 08/01/2021 was 1.87. Creatinine is at 1.09 with a BUN of 30 and the rest of the electrodes are all within normal limits. He is afebrile. He is tolerating his diet as the patient is able to eat in between different modes of oxygen delivery. He did have a spike of temperature of 11.6 yesterday. He is tachypneic his breathing is labored. Continue BiPAP treatment alternating with high flow oxygen at 6 L with an FiO2 of 90% Will monitor this patient on the medical floor and transferred to the intensive care unit if there is any worsening 08/04/2021 the patient is somewhat better compared to yesterday. - The patient gradually improved since then and currently is on high flow oxygen and 60 L of FiO2 of 90% in addition to 100% nonrebreather facemask; He remains on Decadron 6 mg on a daily basis and addition to Baricitinib 4 mg by mouth rachna; Lovenox and the dose is adjusted to 60 mg subcu every 12 hours because of an elevated d-dimer of 14.3. Meanwhile, his LDH still elevated at 2954 and a CRP still elevated at 13.8. Platelet electrodes are all within normal limits. His white cell count of 15.3 with hemoglobin of 13.4. Chest x- ray from today was reviewed and was compared to the earlier chest x-ray showed improvement in the inspiratory effort and there is also improvement in the right basilar consolidation. However there is still persistent and diffuse breath and pulmonary infiltrates perihilar and lower lobes bilaterally. Patient is awake and alert. No altered mentation. No other new complaints otherwise for now. 08/16/2021 The patient was admitted to the hospital with coronavirus associated pneumonia; moved to the intensive care unit on August 06, and intubated on the same day. He remains on the mechanical ventilator. --On August 14, the patient underwent tracheostomy. The PEG tube was attempted, but was not able to be done. Ventilator settings include the volume assist control mode White count 15.7, hemoglobin 7.5, hematocrit 23.9, platelet count 429,000. D- dimer was 5.08. Sodium 137, potassium 4.7, chlorides 107, CO2 24, anion gap is 6, BUN 41, creatinine 1.30. Albumin is 2.8. C-reactive protein is 3.8. Chest x-ray shows diffuse bilateral infiltrates. No change in chest x-ray compared to prior x-rays. Patient remains in intensive care unit with critical care on board; remains on IV Zosyn and Levaquin; cultures are negative so far; critical coronary recommending to continue with current management at this time 08/17/2021 Patient is seen and evaluated in ICU; remains on the mechanical ventilator; patient underwent tracheostomy. Arterial blood gases show pO2 of 81, pCO2 48, and a pH is 7.36. The patient's on saline at 20 mL an hour, fentanyl at 4 mcg/kg/h, propofol at 75 mcg/kg/m, Nimbex at 3 g kilogram per minute, and tube feedings with Nepro at 14 mL an hour, which is goal. Last night, because of bleeding around the tracheostomy site, patient received 1 unit of packed red blood cells, 1 unit of platelets, and protamine sulfate. lab review revealsWhite count is 15.2, hemoglobin 7.7, hematocrit 24.6, and platelet count 348,000. Sodium 135, potassium 4.7, chlorides 107, CO2 25, anion gap 3, BUN 32, creatinine 1.26. Chest x-ray from today, shows stable bilateral pulmonary infiltrates. patient underwent a trial of discontinuing Nimbex; it was restarted once patient became tachypneic 08/18/2021 Patient is seen and evaluated in ICU; remains intubated and mechanically ventilated; remains sedated - patient underwent tracheostomy tube placement on 08/14/2021. A PEG tube was attempted, but was unsuccessful; surgery on board. - labs are reviewed and reveal a white count of 14.7 in room 8.7 hematocrit 27.5 and a platelet count 349,000. Sodium potassium chloride CO2 all normal. Anion gap 6. BUN 28, creatinine 1.16. Albumin was 3.1. Chest x-ray continues to show diffuse bilateral patchy infiltrates. There is also the presence of the midline tracheostomy tube. Patient remains on labetalol for blood pressure control But intensive care service patient has not been able to tolerate a holiday from Nimbex; remains critically ill 08/19/2021 Patient remains in ICU and remains intubated and mechanically ventilated; remains sedated Patient is evaluated by general surgery to reassess possible PEG tube placement; patient is currently on tube feeding with nephro lab review shows a white blood count of 11.6, hemoglobin 7.6 and platelet count of 294 nephrology on board for acute renal injury, acute tubular necrosis; with creatinine down to 1.17 08/20/2021 Patient remains in ICU; remains intubated for COVID-19 related pneumonia/ARDS; patient clinically remains unchanged in past 24 hours and remains on ventilator support with previous settings; he is status post tracheostomy; PEG tube was attempted and was unsuccessful; general surgery currently on board with plans for repeat attempt at possible PEG tube insertion at a later stage; patient has an NG tube for nutrition Vital signs are reviewed with temperature 99.5, pulse 87, respiration 38 and blood pressure 168/90; lab review shows to be preceded 11.4, hemoglobin 9.0, hematocrit 27.8, sodium 135, potassium 4.8, BUN/creatinine of 25/1.17 Objective - Vital Signs Vital signs: Vital Signs Temp 99.3 F 08/20/21 08:00 Pulse 112 H 08/20/21 11:00 Resp 38 H 08/20/21 11:00 BP 147/77 08/20/21 11:00 Pulse Ox 96 08/20/21 11:00 Intake & Output 08/19/21 08/20/21 08/20/21 18:59 06:59 18:59 Intake Total 2197.766 2532.458 913.615 Output Total 1605 2195 825 Balance 592.766 337.458 88.615 Weight 123.4 kg 126.3 kg Intake: IV 243 273 103 Sodium Chloride 0.9% 1, 240 240 100 000 ml @ 20 mls/hr IV . Q24H [facility] Rx#:[id number] pressure bag .9 3 33 3 Intake, IV Titration 6806.883 3226.458 798.615 Amount Cisatracurium 200 mg In 198.157 Sodium Chloride 0.9% 180 ml @ 1 MCG/KG/MIN 7.893 mls/hr IV .Q24H [facility] Rx#: [id number] Heparin Sod,Pork in 0.45% 250.000 124.575 NaCl 25,000 unit In 0.45 % NaCl 1 250ml.bag @ 8.19 UNITS/KG/HR 10 mls/hr IV .Q24H [facility] Rx#:[id number] fentaNYL (PF). 2,500 mcg 982.719 990.940 498.615 In Sodium Chloride 0.9% 200 ml @ 0.5 MCG/KG/HR 6. 577 mls/hr IV .Q24H [facility] Rx#:[id number] propofoL 1,000 mg In 509.890 643.943 300 Empty Bag 1 bag @ Titrate IV .Q0M [facility] Rx#: [id number] Tube Feeding 14 140 12 Other 360 Output: Urine 1605 2195 825 Other: Voiding Method Indwelling Catheter Indwelling Catheter Indwelling Catheter # Bowel Movements 1 ABP, PAP, CO, CI - Last Documented Arterial Blood Pressure 150/88 - Exam GENERAL: The patient is alert and oriented x3, not in any acute distress. Well developed, well nourished. HEENT: Pupils are round and equally reacting to light. EOMI. No scleral icterus. No conjunctival pallor. Normocephalic, atraumatic. No pharyngeal erythema. No thyromegaly. CARDIOVASCULAR: S1 and S2 present. No murmurs, rubs, or gallops. -PULMONARY: Chest is clear to auscultation, no wheezing bilateral crepitation, tachypnea ABDOMEN: Soft, nontender, nondistended, normoactive bowel sounds. No palpable organomegaly. MUSCULOSKELETAL: No joint swelling or deformity. EXTREMITIES: No cyanosis, clubbing, or pedal edema. NEUROLOGICAL: Gross neurological examination did not reveal any focal deficits. SKIN: No rashes. No petechiae - Labs CBC & Chem 7: 08/21/21 05:15 08/21/21 05:15 Labs: Abnormal Lab Results - Last 24 Hours (Table) 08/19/21 08/19/21 08/20/21 Range/Units 14:00 22:13 04:43 WBC (3.8-10.6) k/uL RBC (4.30-5.90) m/uL Hgb (13.0-17.5) gm/dL Hct (39.0-53.0) % RDW (11.5-15.5) % Neutrophils # (Manual) (1.3-7.7) k/uL Lymphocytes # (Manual) (1.0-4.8) k/uL Metamyelocytes # (Man) (0) k/uL Myelocytes # (Manual) (0) k/uL Nucleated RBCs (0-0) /100 WBC APTT 38.9 H (22.0-30.0) sec D-Dimer 4.93 H (<0.60) mg/L FEU ABG pH (7.35-7.45) ABG pCO2 (35-45) mmHg ABG pO2 (83-108) mmHg ABG HCO3 (21-25) mmol/L ABG Total CO2 (19-24) mmol/L ABG O2 Saturation (94-97) % Sodium (137-145) mmol/L BUN (9-20) mg/dL Lactate Dehydrogenase 820 H (313-618) U/L C-Reactive Protein 3.7 H (<1.0) mg/dL Triglycerides 305.00 H (0.00-149.00) mg/dL 08/20/21 08/20/21 08/20/21 Range/Units 04:43 04:43 06:00 WBC 11.3 H (3.8-10.6) k/uL RBC 2.95 L (4.30-5.90) m/uL Hgb 9.0 L (13.0-17.5) gm/dL Hct 27.8 L (39.0-53.0) % RDW 20.6 H (11.5-15.5) % Neutrophils # (Manual) 10.00 H (1.3-7.7) k/uL Lymphocytes # (Manual) 0.57 L (1.0-4.8) k/uL Metamyelocytes # (Man) 0.11 H (0) k/uL Myelocytes # (Manual) 0.34 H (0) k/uL Nucleated RBCs 1 H (0-0) /100 WBC APTT (22.0-30.0) sec D-Dimer (<0.60) mg/L FEU ABG pH 7.32 L (7.35-7.45) ABG pCO2 52 H (35-45) mmHg ABG pO2 60 L (83-108) mmHg ABG HCO3 27 H (21-25) mmol/L ABG Total CO2 29 H (19-24) mmol/L ABG O2 Saturation 89.7 L (94-97) % Sodium 135 L (137-145) mmol/L BUN 25 H (9-20) mg/dL Lactate Dehydrogenase 810 H (313-618) U/L C-Reactive Protein 4.0 H (<1.0) mg/dL Triglycerides (0.00-149.00) mg/dL Assessment and Plan Assessment: Acute bilateral Covid pneumonia Acute hypoxic respiratory failure Elevated inflammatory markers Obesity with BMI of 49.8 Plan: This is a pleasant 31 years old male who presents with bilateral Covid pneumonia and hypoxia. Continue with oxygen as needed Continue With dexamethasone and Lovenox. Continue with vitamin C, vitamin D and zinc c/w baricitinib Pulmonary consult Labs and medication were reviewed.. Continue same treatment. Continue with symptomatic treatment. Resume home medication. Monitor lytes and vitals. DVT and GI prophylaxis. Further recommendations depends on the clinical course of the patient DVT prophylaxis: Subcutaneous Lovenox GI Prophylaxis: Pepcid Prognosis is guarded
--- NOTE | 2021-08-21 14:05 | P.PN ---
Subjective Progress Note Date: 08/21/21 CHIEF COMPLAINT: COVID-19 pneumonia HISTORY OF PRESENT ILLNESS: Patient remains in the ICU on mechanical ventilation. He is status post tracheostomy placementon 08/14/21. PEG tube was not placed due to nonvisualization of light reflex to the stomach during EGD. And currently receiving tube feedings through NG tube. Patient initially had PEG tube placement scheduled for today. They're work scheduling conflicts. PEG tube placement has been rescheduled for tomorrow. Afebrile. WBC 9.2 PHYSICAL EXAM: VITAL SIGNS: Reviewed. GENERAL: Well-developed in no acute distress. HEENT: No sclera icterus. Extraocular movements grossly intact. Moist buccal mucosa. Head is atraumatic, normocephalic. Tracheostomy site clean dry and intact ABDOMEN: Soft. distended NEUROLOGIC: Intubated and sedated ASSESSMENT: 1. Acute hypoxic respiratory failure due to COVID-19 pneumonia with prolonged mechanical intubation. Status post tracheostomy placement 2. Severe protein calorie malnutrition. PEG tube insertion aborted on 08/14/2021. Unable to visualize light reflex. PLAN: -EGD with PEG tube placement rescheduled for tomorrow, 08/22/[address] Green -Hold IV heparin starting at 9 AM tomorrow -Hold tube feedings after midnight Physician Wood Lather note has been reviewed by physician. Signing provider agrees with the documented findings, assessment, and plan of care. Objective - Vital Signs Vital signs: Vital Signs Temp 99.4 F 08/21/21 12:00 Pulse 98 08/21/21 12:30 Resp 31 H 08/21/21 12:30 BP 174/90 08/21/21 09:00 Pulse Ox 97 08/21/21 12:30 Intake & Output 08/20/21 08/21/21 08/21/21 18:59 06:59 18:59 Intake Total 2930.784 2583.969 1140.456 Output Total 4385 1590 805 Balance -1454.216 993.969 335.456 Weight 121.3 kg 121.3 kg Intake: IV 243 296 100 Sodium Chloride 0.9% 1, 240 260 100 000 ml @ 20 mls/hr IV . Q24H [facility] Rx#:[id number] pressure bag .9 3 36 Intake, IV Titration 2063.784 4648.909 7872.456 Amount Clevidipine Butyrate 25 6.600 mg In Empty Bag 1 bag @ 1 MG/HR 2 mls/hr IV .Q24H [facility] Rx#:[id number] Dexmedetomidine/0.9% NaCl 61.3 338.05 298.15 (Pmx) 400 mcg In Empty Bag 1 bag @ 0.2 MCG/KG/HR 6 mls/hr IV .[id number] [facility] Rx#:[id number] Heparin Sod,Pork in 0.45% 160.502 225.007 234.582 NaCl 25,000 unit In 0.45 % NaCl 1 250ml.bag @ 8.19 UNITS/KG/HR 10 mls/hr IV .Q24H [facility] Rx#:[id number] fentaNYL (PF). 2,500 mcg 1248.615 999.931 212.113 In Sodium Chloride 0.9% 200 ml @ 0.5 MCG/KG/HR 6. 577 mls/hr IV .Q24H [facility] Rx#:[id number] propofoL 1,000 mg In 593.367 340.981 289.011 Empty Bag 1 bag @ Titrate IV .Q0M [facility] Rx#: [id number] Tube Feeding 144 144 Other 480 240 Output: Urine 4385 1590 805 Other: Voiding Method Indwelling Catheter Indwelling Catheter Indwelling Catheter ABP, PAP, CO, CI - Last Documented Arterial Blood Pressure 149/78 - Labs CBC & Chem 7: 08/21/21 05:15 08/21/21 05:15 Labs: Abnormal Lab Results - Last 24 Hours (Table) 08/20/21 08/20/21 08/21/21 Range/Units 14:58 17:28 00:15 RBC (4.30-5.90) m/uL Hgb (13.0-17.5) gm/dL Hct (39.0-53.0) % MCHC (31.0-37.0) g/dL RDW (11.5-15.5) % APTT 38.4 H 51.2 H (22.0-30.0) sec D-Dimer (<0.60) mg/L FEU ABG pO2 (83-108) mmHg ABG HCO3 (21-25) mmol/L ABG Total CO2 (19-24) mmol/L ABG O2 Saturation (94-97) % Sodium (137-145) mmol/L BUN (9-20) mg/dL POC Glucose (mg/dL) 111 H (75-99) mg/dL Lactate Dehydrogenase (313-618) U/L C-Reactive Protein (<1.0) mg/dL 08/21/21 08/21/21 08/21/21 Range/Units 05:15 05:15 05:15 RBC 2.76 L (4.30-5.90) m/uL Hgb 7.9 L (13.0-17.5) gm/dL Hct 26.0 L (39.0-53.0) % MCHC 30.4 L (31.0-37.0) g/dL RDW 20.8 H (11.5-15.5) % APTT 49.1 H (22.0-30.0) sec D-Dimer 4.10 H (<0.60) mg/L FEU ABG pO2 (83-108) mmHg ABG HCO3 (21-25) mmol/L ABG Total CO2 (19-24) mmol/L ABG O2 Saturation (94-97) % Sodium 136 L (137-145) mmol/L BUN 23 H (9-20) mg/dL POC Glucose (mg/dL) (75-99) mg/dL Lactate Dehydrogenase 728 H (313-618) U/L C-Reactive Protein 4.8 H (<1.0) mg/dL 08/21/21 08/21/21 08/21/21 Range/Units 05:21 05:30 11:41 RBC (4.30-5.90) m/uL Hgb (13.0-17.5) gm/dL Hct (39.0-53.0) % MCHC (31.0-37.0) g/dL RDW (11.5-15.5) % APTT (22.0-30.0) sec D-Dimer (<0.60) mg/L FEU ABG pO2 69 L (83-108) mmHg ABG HCO3 29 H (21-25) mmol/L ABG Total CO2 30 H (19-24) mmol/L ABG O2 Saturation (94-97) % Sodium (137-145) mmol/L BUN (9-20) mg/dL POC Glucose (mg/dL) 106 H 110 H (75-99) mg/dL Lactate Dehydrogenase (313-618) U/L C-Reactive Protein (<1.0) mg/dL 08/21/21 Range/Units 12:16 RBC (4.30-5.90) m/uL Hgb (13.0-17.5) gm/dL Hct (39.0-53.0) % MCHC (31.0-37.0) g/dL RDW (11.5-15.5) % APTT (22.0-30.0) sec D-Dimer (<0.60) mg/L FEU ABG pO2 80 L (83-108) mmHg ABG HCO3 27 H (21-25) mmol/L ABG Total CO2 28 H (19-24) mmol/L ABG O2 Saturation 97.1 H (94-97) % Sodium (137-145) mmol/L BUN (9-20) mg/dL POC Glucose (mg/dL) (75-99) mg/dL Lactate Dehydrogenase (313-618) U/L C-Reactive Protein (<1.0) mg/dL
--- NOTE | 2021-08-21 14:09 | CDI ---
Documentation Clarification Form Date: 08/21/2021 01:50:21 PM From: Jannet Sims RN, CCDS Admit Date: 07/31/2021 04:18:00 AM Patient Name: Jhon Randhawa Visit Number: [id number] ATTENTION: The Clinical Documentation Specialists (CDI) and [facility] Coding Staff appreciate your assistance in clarifying documentation. Please respond to the clarification below the line at the bottom and electronically sign. The CDI & [facility] Coding staff will review the response and follow-up if needed. Please note: Queries are made part of the Legal Health Record. If you have any questions, please contact the author of this message via ITS. Dr. Johnny Forde Unspecified anemia is documented 07/31-08/21. Additional specificity regarding the type & acuity of anemia is requested. History/Risk Factors: Covid 19 Pneumonia, ARDS, Obesity with BMI 49.8, Acute PE on IV Heparin, Severe Protein Calorie Malnutrition, BAUTISTA with ATN Clinical indicators: 08/07-08/21 Hemoglobin: 11.9/9.8/9.2/8.4/8/7.8/9.5/7.7/7.4/8.1/7.7/8.7/7.6/9/7.9 Hematocrit: 37.8/33.4/30.3/27.2/25.5/26.1/31.7/25.1/23.7/26.3/24.6/27.5/25.4/27.8/26 08/08 Nephrology Consult: "Anemia, rule out iron deficiency." 08/18-08-21 Pulmonary Progress notes: "anemia, multifactorial, no signs of any acute bleeding and the patient remains on IV heparin." 08/20-08/21 Pulmonary Progress Notes; "His anticoagulation was held yesterday bleed. The patient was found to have some occult blood in the stool. 08/16 Trach revision procedure; "Heparin-induced bleeding tracheostomy Indications for Procedure: At the time of surgery there is no obvious bleeding but due to the patient's significant bleeding prior was decided to explore the tracheostomy site. Several clots were removed. There was no active bleeding seen." 08/17 Attending Progress note; "Last night, because of bleeding around the tracheostomy site, patient received 1 unit of packed red blood cells, 1 unit of platelets, and protamine sulfate." Treatment: 08/16 1 unit PRBC's and 1 unit platelets transfused 08/06- current IV Heparin Low Intensity Protocol 08/16 Protamine 50 mg IVP x 1 dose Please clarify the type and acuity of anemia: [ ] Acute blood loss anemia (please document cause if known) [ ] Acute on chronic blood loss anemia (please document cause if known) [ ] Chronic blood loss anemia (please document cause if known) [ ] Iron deficiency anemia [ ] Drug induced anemia [ ] Nutritional anemia [ ] Unable to determine [ ] Other, please specify (Template Last Revised: December 2020) _Unable to determine ___ MTDD
--- NOTE | 2021-08-21 14:37 | CDI ---
Documentation Clarification Form Date: 08/21/2021 02:34:25 PM From: Jannet Sims RN, CCDS Admit Date: 07/31/2021 04:18:00 AM Patient Name: Jhon Randhawa Visit Number: [id number] ATTENTION: The Clinical Documentation Specialists (CDI) and [facility] Coding Staff appreciate your assistance in clarifying documentation. Please respond to the clarification below the line at the bottom and electronically sign. The CDI & [facility] Coding staff will review the response and follow-up if needed. Please note: Queries are made part of the Legal Health Record. If you have any questions, please contact the author of this message via ITS. Dr. Johnny Forde The patient presented with the following clinical indicators. Additional clarification regarding the etiology/cause of the clinical indicators is requested. History/Risk Factors: Prior to this admission- patient had no pertinent medical hx Clinical Indicators: 08/17 Nephrology consult: "Acute kidney injury, acute tubular necrosis, currently nonoliguric, associated with COVID infection and sepsis as well as contrast-induced nephropathy." 08/17-08/18 Surgical progress notes: "Tracheostomy sepsis." WBC:6.9/10.81/10.3/9.8/15.3/19.1/17.4/19/15.1/12.1/11.8/12.6/15/30/17.5/15.6/20. 4/15.2/14.7/11.6/11.3/9.2 07/31 Lactic acid: 0.8 Blood cultures x4 and Sputum Cx x 2 negative 07/31 0204 Admission Vital signs: Temp 99.1, HR 109, RR 20, B/P 159/92, Spo2 84% RA Documented Infectious process: Covid 19 pneumonia POA Organ Dysfunction: Acute Hypoxic respiratory failure POA progressing to ARDS, 08/10 Patient developed BAUTISTA with ATN Treatment: ID Consult: not ordered Antibiotics: 07/31 -08/13 Baricitnib protocol IV Bolus: 07/31, 08/07, 08/08 1L 0.9% NS IVF Bolus In your professional opinion, please clarify if these findings signify one of the following conditions: [ ] Sepsis with severe sepsis POA [ ] Sepsis with severe sepsis Not POA [ ] Sepsis ruled out [ ] Other, please specify [ ] Unable to determine SIRS Criteria: 2 or more of the following may indicate SIRS -Temperature < 96.8F (36C) or > 101.0F (38.3C) -Heart Rate > 90 bpm -Respiratory Rate > 20 breaths/min or PaCO2 < 32 mmHg -White Blood Cell Count > 12,000 or < 4,000 cells/mm3 or > 10% bands (Template Last Reviewed: December 2020) Unable to determine MTDD
[2021-08-21] MEDS: MIDAZOLAM HCL 50 MG in SODIUM CHLORIDE 0.9% 40 ML IV SCH (18:36)
[2021-08-21 18:47] LABS: Glucose,Whole Blood 102 mg/dL (75-99)
[2021-08-21] MEDS ORDERED: Potassium Replacement Protocol 1 EACH MISC MISCELLANE PRN (19:33)
[2021-08-21] MEDS ORDERED: POTASSIUM BICARBONATE/CIT AC 20 MEQ TABLET.EFF NG-TUBE SCH (20:00)
--- NOTE | 2021-08-21 21:35 | P.PN ---
Subjective Progress Note Date: 08/21/21 Principal diagnosis: COVID-19 bilateral pneumonia Acute hypoxic respiratory failure 31 years old -[place] man with no significant past medical history presents with dyspnea which started yesterday associated with fever and coughing. Patient tested positive for covid earlier on Thursday after he felt with fever and cough on Thursday but at that time he was not dyspneic. He denies chest pain or abdominal pain but he has diarrhea on and off. No vomiting. He is saturating 89% on 6 L oxygen via nasal cannula, afebrile. Tachypneic with a breathing rate at 23. CBC, is unremarkable. INR is normal at 1.0. Sodium is 1:30, creatinine normal at 1.1, glucose 103. AST is mildly elevated 106 and ALT mildly elevated 106. Elevated lactate dehydrogenase 2600 and C-reactive protein 20.3. Cholelithiasis positive EKG shows sinus tachycardia and [address]-T changes Chest x-ray showing bilateral infiltrates 08/03/2021 patient is seen and evaluated ; continues to have difficulty breathing secondary to COVID-19 pneumonia. Earlier this morning at around 4 AM, the patient had a spell where he had an increased cough and in between he was unable to catch his breath and the patient desaturated. At that point, he was placed on BiPAP. He was quite hypoxic and he gradually build himself up and currently is back on 14/7 cm of water with an FiO2 of 90%. He is currently holding his BiPAP mask on his face. He is comfortable. He is also willing to consider to go back on high flow oxygen in addition to 100% on a beta facemask. --He remains on Decadron 6 mg on a daily basis. He remains on Baricitinib 4 mg on a daily basis. He remains on Lovenox 40 mg subcu on a daily basis. Labs are reviewed and reveal white cell count is at 9.8 with hemoglobin of 12.1. His d-dimer from 08/01/2021 was 1.87. Creatinine is at 1.09 with a BUN of 30 and the rest of the electrodes are all within normal limits. He is afebrile. He is tolerating his diet as the patient is able to eat in between different modes of oxygen delivery. He did have a spike of temperature of 11.6 yesterday. He is tachypneic his breathing is labored. Continue BiPAP treatment alternating with high flow oxygen at 6 L with an FiO2 of 90% Will monitor this patient on the medical floor and transferred to the intensive care unit if there is any worsening 08/04/2021 the patient is somewhat better compared to yesterday. - The patient gradually improved since then and currently is on high flow oxygen and 60 L of FiO2 of 90% in addition to 100% nonrebreather facemask; He remains on Decadron 6 mg on a daily basis and addition to Baricitinib 4 mg by mouth rachna; Lovenox and the dose is adjusted to 60 mg subcu every 12 hours because of an elevated d-dimer of 14.3. Meanwhile, his LDH still elevated at 2954 and a CRP still elevated at 13.8. Platelet electrodes are all within normal limits. His white cell count of 15.3 with hemoglobin of 13.4. Chest x- ray from today was reviewed and was compared to the earlier chest x-ray showed improvement in the inspiratory effort and there is also improvement in the right basilar consolidation. However there is still persistent and diffuse breath and pulmonary infiltrates perihilar and lower lobes bilaterally. Patient is awake and alert. No altered mentation. No other new complaints otherwise for now. 08/16/2021 The patient was admitted to the hospital with coronavirus associated pneumonia; moved to the intensive care unit on August 06, and intubated on the same day. He remains on the mechanical ventilator. --On August 14, the patient underwent tracheostomy. The PEG tube was attempted, but was not able to be done. Ventilator settings include the volume assist control mode White count 15.7, hemoglobin 7.5, hematocrit 23.9, platelet count 429,000. D- dimer was 5.08. Sodium 137, potassium 4.7, chlorides 107, CO2 24, anion gap is 6, BUN 41, creatinine 1.30. Albumin is 2.8. C-reactive protein is 3.8. Chest x-ray shows diffuse bilateral infiltrates. No change in chest x-ray compared to prior x-rays. Patient remains in intensive care unit with critical care on board; remains on IV Zosyn and Levaquin; cultures are negative so far; critical coronary recommending to continue with current management at this time 08/17/2021 Patient is seen and evaluated in ICU; remains on the mechanical ventilator; patient underwent tracheostomy. Arterial blood gases show pO2 of 81, pCO2 48, and a pH is 7.36. The patient's on saline at 20 mL an hour, fentanyl at 4 mcg/kg/h, propofol at 75 mcg/kg/m, Nimbex at 3 g kilogram per minute, and tube feedings with Nepro at 14 mL an hour, which is goal. Last night, because of bleeding around the tracheostomy site, patient received 1 unit of packed red blood cells, 1 unit of platelets, and protamine sulfate. lab review revealsWhite count is 15.2, hemoglobin 7.7, hematocrit 24.6, and platelet count 348,000. Sodium 135, potassium 4.7, chlorides 107, CO2 25, anion gap 3, BUN 32, creatinine 1.26. Chest x-ray from today, shows stable bilateral pulmonary infiltrates. patient underwent a trial of discontinuing Nimbex; it was restarted once patient became tachypneic 08/18/2021 Patient is seen and evaluated in ICU; remains intubated and mechanically ventilated; remains sedated - patient underwent tracheostomy tube placement on 08/14/2021. A PEG tube was attempted, but was unsuccessful; surgery on board. - labs are reviewed and reveal a white count of 14.7 in room 8.7 hematocrit 27.5 and a platelet count 349,000. Sodium potassium chloride CO2 all normal. Anion gap 6. BUN 28, creatinine 1.16. Albumin was 3.1. Chest x-ray continues to show diffuse bilateral patchy infiltrates. There is also the presence of the midline tracheostomy tube. Patient remains on labetalol for blood pressure control But intensive care service patient has not been able to tolerate a holiday from Nimbex; remains critically ill 08/19/2021 Patient remains in ICU and remains intubated and mechanically ventilated; remains sedated Patient is evaluated by general surgery to reassess possible PEG tube placement; patient is currently on tube feeding with nephro lab review shows a white blood count of 11.6, hemoglobin 7.6 and platelet count of 294 nephrology on board for acute renal injury, acute tubular necrosis; with creatinine down to 1.17 08/20/2021 Patient remains in ICU; remains intubated for COVID-19 related pneumonia/ARDS; patient clinically remains unchanged in past 24 hours and remains on ventilator support with previous settings; he is status post tracheostomy; PEG tube was attempted and was unsuccessful; general surgery currently on board with plans for repeat attempt at possible PEG tube insertion at a later stage; patient has an NG tube for nutrition Vital signs are reviewed with temperature 99.5, pulse 87, respiration 38 and blood pressure 168/90; lab review shows to be preceded 11.4, hemoglobin 9.0, hematocrit 27.8, sodium 135, potassium 4.8, BUN/creatinine of 25/1.17 08/21/2021 Patient is seen and evaluated in room at beside. Patient's discussed nursing staff. Patient currently has a tracheostomy which is dry, clean, and intact. Patient suffers from COVID19 pneumonia complicated by ARDS and prolonged respiratory failure. Current issue at hands remains the patient's respiratory failure. He is taken off paralytics and now on combination of drugs in order to manage his sedation. Current medication regimen includes propofol, fentanyl, precedex. Patient's inflammatory markers have trended down specifically LDH of 728 and CRP down to 4.8. D-Dimer has also trended down to 4.1. Patient is currently on enteral feeding for nutrition. This morning tube feeds were held in preparation for PEG tube insertion. No other major changes or significant events in the past 24 hours. Objective - Vital Signs Vital signs: Vital Signs Temp 99.4 F 08/21/21 12:00 Pulse 98 08/21/21 12:30 Resp 31 H 08/21/21 12:30 BP 174/90 08/21/21 09:00 Pulse Ox 97 08/21/21 12:30 Intake & Output 08/20/21 08/21/21 08/21/21 18:59 06:59 18:59 Intake Total 2930.784 2583.969 1120.189 Output Total 4385 1590 805 Balance -1454.216 993.969 315.189 Weight 121.3 kg 121.3 kg Intake: IV 243 296 100 Sodium Chloride 0.9% 1, 240 260 100 000 ml @ 20 mls/hr IV . Q24H [facility] Rx#:[id number] pressure bag .9 3 36 Intake, IV Titration 2063.784 5299.155 1722.189 Amount Clevidipine Butyrate 25 6.600 mg In Empty Bag 1 bag @ 1 MG/HR 2 mls/hr IV .Q24H [facility] Rx#:[id number] Dexmedetomidine/0.9% NaCl 61.3 338.05 298.15 (Pmx) 400 mcg In Empty Bag 1 bag @ 0.2 MCG/KG/HR 6 mls/hr IV .[id number] [facility] Rx#:[id number] Heparin Sod,Pork in 0.45% 160.502 225.007 214.315 NaCl 25,000 unit In 0.45 % NaCl 1 250ml.bag @ 8.19 UNITS/KG/HR 10 mls/hr IV .Q24H [facility] Rx#:[id number] fentaNYL (PF). 2,500 mcg 1248.615 999.931 212.113 In Sodium Chloride 0.9% 200 ml @ 0.5 MCG/KG/HR 6. 577 mls/hr IV .Q24H [facility] Rx#:[id number] propofoL 1,000 mg In 593.367 340.981 289.011 Empty Bag 1 bag @ Titrate IV .Q0M [facility] Rx#: [id number] Tube Feeding 144 144 Other 480 240 Output: Urine 4385 1590 805 Other: Voiding Method Indwelling Catheter Indwelling Catheter Indwelling Catheter ABP, PAP, CO, CI - Last Documented Arterial Blood Pressure 149/78 - Exam GENERAL: The patient is alert and oriented x3, not in any acute distress. Well developed, well nourished. HEENT: Pupils are round and equally reacting to light. EOMI. No scleral icterus. No conjunctival pallor. Normocephalic, atraumatic. No pharyngeal erythema. No thyromegaly. CARDIOVASCULAR: S1 and S2 present. No murmurs, rubs, or gallops. -PULMONARY: Chest is clear to auscultation, no wheezing bilateral crepitation, tachypnea ABDOMEN: Soft, nontender, nondistended, normoactive bowel sounds. No palpable organomegaly. MUSCULOSKELETAL: No joint swelling or deformity. EXTREMITIES: No cyanosis, clubbing, or pedal edema. NEUROLOGICAL: Gross neurological examination did not reveal any focal deficits. SKIN: No rashes. No petechiae - Labs CBC & Chem 7: 08/21/21 05:15 08/21/21 05:15 Labs: Abnormal Lab Results - Last 24 Hours (Table) 08/20/21 08/20/21 08/21/21 Range/Units 14:58 17:28 00:15 RBC (4.30-5.90) m/uL Hgb (13.0-17.5) gm/dL Hct (39.0-53.0) % MCHC (31.0-37.0) g/dL RDW (11.5-15.5) % APTT 38.4 H 51.2 H (22.0-30.0) sec D-Dimer (<0.60) mg/L FEU ABG pO2 (83-108) mmHg ABG HCO3 (21-25) mmol/L ABG Total CO2 (19-24) mmol/L ABG O2 Saturation (94-97) % Sodium (137-145) mmol/L BUN (9-20) mg/dL POC Glucose (mg/dL) 111 H (75-99) mg/dL Lactate Dehydrogenase (313-618) U/L C-Reactive Protein (<1.0) mg/dL 08/21/21 08/21/21 08/21/21 Range/Units 05:15 05:15 05:15 RBC 2.76 L (4.30-5.90) m/uL Hgb 7.9 L (13.0-17.5) gm/dL Hct 26.0 L (39.0-53.0) % MCHC 30.4 L (31.0-37.0) g/dL RDW 20.8 H (11.5-15.5) % APTT 49.1 H (22.0-30.0) sec D-Dimer 4.10 H (<0.60) mg/L FEU ABG pO2 (83-108) mmHg ABG HCO3 (21-25) mmol/L ABG Total CO2 (19-24) mmol/L ABG O2 Saturation (94-97) % Sodium 136 L (137-145) mmol/L BUN 23 H (9-20) mg/dL POC Glucose (mg/dL) (75-99) mg/dL Lactate Dehydrogenase 728 H (313-618) U/L C-Reactive Protein 4.8 H (<1.0) mg/dL 08/21/21 08/21/21 08/21/21 Range/Units 05:21 05:30 11:41 RBC (4.30-5.90) m/uL Hgb (13.0-17.5) gm/dL Hct (39.0-53.0) % MCHC (31.0-37.0) g/dL RDW (11.5-15.5) % APTT (22.0-30.0) sec D-Dimer (<0.60) mg/L FEU ABG pO2 69 L (83-108) mmHg ABG HCO3 29 H (21-25) mmol/L ABG Total CO2 30 H (19-24) mmol/L ABG O2 Saturation (94-97) % Sodium (137-145) mmol/L BUN (9-20) mg/dL POC Glucose (mg/dL) 106 H 110 H (75-99) mg/dL Lactate Dehydrogenase (313-618) U/L C-Reactive Protein (<1.0) mg/dL 08/21/21 Range/Units 12:16 RBC (4.30-5.90) m/uL Hgb (13.0-17.5) gm/dL Hct (39.0-53.0) % MCHC (31.0-37.0) g/dL RDW (11.5-15.5) % APTT (22.0-30.0) sec D-Dimer (<0.60) mg/L FEU ABG pO2 80 L (83-108) mmHg ABG HCO3 27 H (21-25) mmol/L ABG Total CO2 28 H (19-24) mmol/L ABG O2 Saturation 97.1 H (94-97) % Sodium (137-145) mmol/L BUN (9-20) mg/dL POC Glucose (mg/dL) (75-99) mg/dL Lactate Dehydrogenase (313-618) U/L C-Reactive Protein (<1.0) mg/dL Assessment and Plan Assessment: Acute bilateral Covid pneumonia Acute hypoxic respiratory failure Elevated inflammatory markers Obesity with BMI of 49.8 Plan: This is a pleasant 31 years old male who presents with bilateral Covid pneumonia and hypoxia. Continue with oxygen as needed Continue With dexamethasone and Lovenox. Continue with vitamin C, vitamin D and zinc c/w baricitinib Pulmonary consult Labs and medication were reviewed.. Continue same treatment. Continue with symptomatic treatment. Resume home medication. Monitor lytes and vitals. DVT and GI prophylaxis. Further recommendations depends on the clinical course of the patient DVT prophylaxis: Subcutaneous Lovenox GI Prophylaxis: Pepcid Prognosis is guarded
[2021-08-21] MEDS: fentaNYL (PF) 2,500 MCG in SODIUM CHLORIDE 0.9% 200 ML IV SCH (21:42)
[2021-08-22 00:29] LABS: Glucose,Whole Blood 97 mg/dL (75-99)
[2021-08-22] MEDS: INSULIN ASPART (NovoLOG) 100 UNIT/ML VIAL SQ SCH ×5 (01:11→23:04)
[2021-08-22] MEDS: LABETALOL 200 MG in SODIUM CHLORIDE 0.9% 160 ML IV SCH ×3 (01:11→06:37)
[2021-08-22] MEDS: DEXMEDETOMIDINE/0.9% NACL(PMX) 400 MCG in EMPTY BAG 1 BAG IV SCH ×5 (01:14→20:30)
[2021-08-22] MEDS: fentaNYL (PF). 2,500 MCG in SODIUM CHLORIDE 0.9% 200 ML IV SCH ×6 (02:22→22:44)
[2021-08-22] MEDS ORDERED: fentaNYL (PF) 2,500 MCG in SODIUM CHLORIDE 0.9% 200 ML IV PRN (04:00)
[2021-08-22] MEDS: HEPARIN SOD,PORK IN 0.45% NACL 25,000 UNIT in 0.45% NACL 1 250ML.BAG IV SCH (04:47)
[2021-08-22 05:10] LABS: ABG HCO3 27 mmol/L (21-25); ABG Oxygen Saturation 96.7 % (94-97); ABG PCO2 44 mmHg (35-45); ABG PO2 83 mmHg (83-108); ABG TCO2 28 mmol/L (19-24); Allen Test Performed? Yes
[2021-08-22 05:15] LABS: Glucose,Whole Blood 96 mg/dL (75-99)
[2021-08-22 06:04] LABS: Anisocytosis Moderate; Basophils % (A) 0 %; Eosinophils # (A) 0.2 k/uL (0-0.7); Eosinophils % (A) 3 %; HCT 26.5 % (39.0-53.0); HGB 7.8 gm/dL (13.0-17.5); Hypochromasia Marked; Lymphocytes # (A) 1.7 k/uL (1.0-4.8); Lymphocytes % (A) 26 %; MCH 28.5 pg (25.0-35.0); MCHC 29.2 g/dL (31.0-37.0); MCV 97.5 fL (80.0-100.0); Macrocytosis Moderate; Mean Platelet Volume 9.2; Monocytes # (A) 0.3 k/uL (0-1.0); Monocytes % (A) 5 %; Neutrophils # (A) 4.2 k/uL (1.3-7.7); Neutrophils % (A) 64 %; Platelet Count 230 k/uL (150-450); Poikilocytosis Slight; RBC 2.72 m/uL (4.30-5.90); RDW 20.4 % (11.5-15.5); WBC 6.5 k/uL (3.8-10.6)
[2021-08-22 06:11] LABS: Glucose 90 mg/dL (74-99)
[2021-08-22 06:15] LABS: ALT 55 U/L (4-49); AST 17 U/L (17-59); African American GFR (CKD) >90 (>60 ml/min/1.73 sqM); Albumin 2.7 g/dL (3.5-5.0); Alkaline Phosphatase 55 U/L (38-126); Anion Gap 5 mmol/L; Blood Urea Nitrogen 21 mg/dL (9-20); C Reactive Protein 5.5 mg/dL (<1.0); Calcium 8.6 mg/dL (8.4-10.2); Carbon Dioxide 25 mmol/L (22-30); Chloride 107 mmol/L (98-107); LDH 729 U/L (313-618); Non-African American GFR(CKD) >90 (>60 ml/min/1.73 sqM); Potassium 3.8 mmol/L (3.5-5.1); Sodium 137 mmol/L (137-145); Total Bilirubin 0.6 mg/dL (0.2-1.3); Total Protein 5.4 g/dL (6.3-8.2)
[2021-08-22 06:22] LABS: Partial Thromboplastin Time 34.9 sec (22.0-30.0)
[2021-08-22] MEDS ORDERED: POTASSIUM BICARBONATE/CIT AC 20 MEQ TABLET.EFF NG-TUBE SCH (06:59)
[2021-08-22] MEDS: ALBUTEROL HFA INHALER INHALATION PRN (07:30)
--- NOTE | 2021-08-22 07:58 | XR ---
EXAMINATION TYPE: XR chest 1V portable DATE OF EXAM: 08/22/2021 Comparison: 08/21/2021 Clinical History: 31-year-old male covid 19 Findings: Tracheostomy cannula is in place. The tip of the cannula is 4 mm from the delmer. NG tube courses bel ow the diaphragm. Heart mildly enlarged. Bilateral groundglass opacities, left greater than right whitley w no significant change. No pleural effusion. Left PICC tip at the upper SVC. Impression: 1. Note low positioning of the tracheostomy cannula. The tip is only 4 mm from the delmer. Pull back 2.5 cm and reassess at follow-up. 2. Similar left greater than right ground glass infiltrates.
[2021-08-22] MEDS: PANTOPRAZOLE 40 MG/10 ML VIAL IVP SCH ×2 (09:38→21:54)
[2021-08-22] MEDS: QUEtiapine 50 MG TAB PO SCH ×2 (09:38→21:53)
[2021-08-22] MEDS: METOPROLOL TARTRATE 25 MG TAB PO SCH (09:38)
[2021-08-22] MEDS: DEXAMETHASONE SOD PHOSPHATE 4 MG/ML 1 ML VIAL IV SCH (09:38)
[2021-08-22] MEDS: CHLORHEXIDINE GLUCONATE 15 ML CUP MUCOUS MEM SCH ×2 (09:38→21:53)
[2021-08-22] MEDS: ZINC SULFATE 220 MG CAP PO SCH (09:39)
[2021-08-22] MEDS: ASCORBIC ACID 500 MG TAB PO SCH (09:39)
[2021-08-22] MEDS: hydrALAZINE HCL 50 MG TAB PO SCH (09:39)
[2021-08-22] MEDS: CHOLECALCIFEROL 25 MCG (1000 IU) TABLET PO SCH (09:39)
[2021-08-22] MEDS: amLODIPine 5 MG TAB PO SCH ×2 (09:42→21:54)
[2021-08-22] MEDS: bisacodyL 10 MG SUPP RECTAL SCH (09:42)
[2021-08-22] MEDS: SENNOSIDES-DOCUSATE SODIUM 1 EACH TAB PO SCH (09:42)
[2021-08-22 11:48] LABS: Glucose,Whole Blood 91 mg/dL (75-99)
[2021-08-22] MEDS ORDERED: FUROSEMIDE 10 MG/ML 4 ML VIAL IV STA (11:51)
--- NOTE | 2021-08-22 11:52 | P.PN ---
Subjective Progress Note Date: 08/22/21 31-year-old black male, being seen in follow-up in the intensive care unit as the patient is a case of COVID-19 related pneumonia complicated by prolonged respiratory failure,. He was admitted to the hospital on July 31 with coronavirus associated pneumonia. On August 06, because of worsening hypoxemic respiratory failure, the patient was moved to the ICU and intubated. On August 14, the patient underwent tracheostomy tube placement. A PEG tube was attempted, but could not be performed because of anatomic reasons. On 08/19/2021, the patient remains on the volume assist control mode, rate 38, tidal volume 375, FiO2 50%, PEEP of 15. The patient is currently on fentanyl at 5.5 mcg/kg/h, Nimbex at 4 mcg/kg/m, propofol at 75 mcg/kg/m, Cleveprex is off , Nepro, at 14 mL an hour which is goal. Chest x-ray continues to show diffuse bilateral patchy infiltrates. There is also the presence of the midline tracheostomy tube. The patient has a Bivona #9 tube. The patient remains on steroids and the patient is receiving Decadron 6 mg IV every [address] angiogram that was done on 08/06/2021 showed at least 2 nonobstructing thrombus in the right lung pulmonary artery. No mediastinal lymphadenopathy. There was evidence of groundglass bilateral pulmonary infiltrates consistent with COVID-19 related pneumonia. The Doppler of the lower extremity that was done back then was also negative for DVTs. Most recent d-dimer from 08/16/2021 showed a level of 5.08. Patient remains on IV heparin for now. He was started on metoprolol 25 mg by mouth twice a day and hydralazine 25 mg by mouth 4 times a day, when necessary and Trandate when necessary. Clevidipine drip is being weaned off. The pro-calcitonin levels from 08/18/2021 was 0.25. The highest level of pro-calcitonin was on 08/08/2021 with a level was as high as 5.5 and subsequently leveled off. The patient is still on a combination of antibiotics including Zosyn and Levaquin. All of the cultures of been negative. The chest x-ray showing bilateral pulmonary infiltrates. Tracheostomy tube is in a good location. No other complications. No pneumothorax. No pleural effusion. No consolidation. There is diffuse bilateral pulmonary infiltration. The blood gases from today showing a pH of 7.35 with a pCO2 of 48 and pO2 of 67. This was on FiO2 of 50% with a PEEP of 15. The patient remains on IV heparin. No evidence of any bleeding around the tracheostomy tube. We have opted to keep him on IV heparin rather than long-acting anticoagulation due to bleeding complications. The patient has a left upper extremity PICC line. Patient has a Lees catheter in place. The patient also has an arterial line and a right radial. The inflammatory markers in general were downtrending. 19 2020, I'm seeing the patient for a follow-up. The patient remains intubated on a mechanical ventilator for COVID-19 related pneumonia/ARDS. This morning, he remains and essentially the same ventilator support and settings with a rate of 38, tidal volume of 375, FiO2 of 70% with a PEEP of 15. The patient has a #91 a tracheostomy tube in place. Chest x-ray was not done from today. Yesterday's chest x-ray was noted on the tracheostomy tube was in a good location. In terms of airway pressures, his peak pressures 32, static pressure is 9. The blood gases from today showed a pH of 7.32 with a pCO2 of 52 and pO2 of 60. Nevertheless, the pulse ox on the monitor is around 100%. Based on that, I gradually wean down the FiO2 down to 50% and I dropped the PEEP down to 14. The patient is currently off paralytics. He was taken off paralytics yesterday. At one point he became asynchronous with a mechanical ventilator and he was given Ativan overnight at a total of 2 mg. He is currently on propofol running at 75 mcg/kg per minute. His fentanyl is running at 8.5 mcg/kg/h. He is off Cleviprex. He is also receiving enteral feeding for insertion support with Nepro at the rate of 12 mL an hour. He remains on Decadron 6 mg IV every 12 hours. His anticoagulation was held yesterday bleed. The patient was found to have some occult blood in the stool. Hemoglobin today is stable at 9.0 and we have not witnessed any form of GI bleeding. Based on this, IV heparin will be restarted. D-dimer today's of 4.9. His inflammatory markers showed an LDH of 810 and is coming down compared to earlier values and his CRP level is 4.0. His pro-calcitonin level was low and antibiotics were discontinued. He continues to have a PICC line in his left upper extremity, arterial line in his right radial. Inflammatory markers are downtrending. He has a NG tube in place. General surgeries on the case for a possible PEG tube insertion of a later stage. 08/21/2021, the patient is being seen for a follow-up. Is a case of COVID-19 related pneumonia with ARDS and prolonged respiratory failure and the patient currently has a tracheostomy tube in place and the patient has a number a Bivona tracheostomy tube. For now, the active issue remains his respiratory failure. The patient was taken off the paralytics. We have managed to control his sedation with a combination of drugs including propofol which is running at 65 mcg/kg per minute and his triglyceride level is at 305. He is also on fentanyl are running at 7.5 mcg/kg/h and he is also on Precedex running at 1.3 mcg/kg/h. I think adjustment of the sedation was done based on his hypertensive reaction and synchrony with the mechanical ventilator. Based on this, I suggested using Cleviprex for blood pressure control. I also made some ventilator adjustments to improve his synchrony with the mechanical ventilator. Aspiration. Pressure control mode of mechanical ventilation. Earlier this morning, his blood gases showed a pH of 7.42 with a pCO2 of 44 and pO2 of 69. His peak airway pressure was 33 anesthetic air pressure was 31. In terms of inflammatory markers, the patient's LDH level is down to 728 and his CRP is down to 4.8. His pro- calcitonin level was 0.25. He d-dimer was down to 4.1. He is receiving enteral feeding for nutritional support. He is currently on Nepro at the rate of 40s an hour. Earlier this morning, tube feeds were held in preparation for PEG tube insertion. Otherwise, he is afebrile. No other significant events over the past 24 hours. Tracheostomy site is dry clean and intact. Fluid balance over the past 24 hours is in the order of +930 mL. 08/22/2021, patient is being seen for a follow-up, as the patient remains in the intensive care unit on a mechanical ventilator. For now, he is using a combination of sedative medications as the patient is having difficulties coming off sedation due to acute hypertensive reaction. I tried to put him on Cleviprex drip which made him very much tachycardic and we had to stop the Cleviprex. I also tried him on labetalol drip to control his blood pressure and that was also not successful. Based on that, he was kept on a higher dose of sedation for now and he is currently on a combination of Precedex running at 0.7 mcg/kg/h. The patient is also on propofol running at 30 mcg/kg per minute and the patient is also on fentanyl at 7.5 mcg/kg/h. I attended to put him also on Versed which didn't work as well and the patient was taken of the Versed infusion. This morning, he is calm and comfortable. His blood pressure is being managed a combination of antacid medication and the patient is on a combination of Norvasc 5 mg, metoprolol 25 mg twice a day and the patient is also on hydralazine 50 mg 3 times a day. The patient was taken off the IV heparin this morning. The patient is going to undergo a bedside PEG tube insertion by general surgery. His enterofeeding is currently on hold. He is currently on a pressure control mode of mechanical ventilation. His pressure control is at 60 cm of water with a PEEP of 14 and FiO2 of 50% with a rate of 32. Peak air pressure is 31 cm of water. The blood gas shows a pH of 7.4 with a pCO2 of 44 and pO2 of 83. The chest x-ray showed diffuse breath and pulmonary infiltrates consistent with COVID-19 related pneumoniaARDS. In terms of treatment, the patient is on Decadron and the patient is receiving 4 mg IV every 24 hours. His inflammatory markers continued to be lower and the patient's LDH level is at 729 with a CRP level of 5.5. electrolytes are normal. Pulses normal. D-dimer is at 4.05. Hemoglobin level is at 7.8. He is afebrile. Her net fluid balance over the past 24 hours has been in the order of negative for 60 mL. Overall, he has been a positive fluid balance and he has some increased edema in his upper extremities bilaterally and to lesser extent in lower extr emities. He is on enteral feeding for nutritional support. He was receiving feeding through his an NG tube in the form of Nepro at the rate of 12 mL an hour. Currently tube feeds are on hold. He was having bowel movements Objective - Vital Signs Vital signs: Vital Signs Temp 100.6 F H 08/22/21 04:00 Pulse 88 08/22/21 07:15 Resp 32 H 08/22/21 07:15 BP 177/120 08/22/21 07:15 Pulse Ox 94 L 08/22/21 07:15 Intake & Output 08/21/21 08/22/21 08/22/21 18:59 06:59 18:59 Intake Total 2614.061 2409.329 223 Output Total 2430 2040 230 Balance 184.061 369.329 -7 Weight 121.3 kg 120.9 kg Intake: IV 220 273 23 Sodium Chloride 0.9% 1, 220 240 20 000 ml @ 20 mls/hr IV . Q24H [facility] Rx#:[id number] pressure bag .9 33 3 Intake, IV Titration 2206.061 1878.329 200 Amount Clevidipine Butyrate 25 6.600 mg In Empty Bag 1 bag @ 1 MG/HR 2 mls/hr IV .Q24H [facility] Rx#:[id number] Dexmedetomidine/0.9% NaCl 498.15 300.00 100 (Pmx) 400 mcg In Empty Bag 1 bag @ 0.2 MCG/KG/HR 6 mls/hr IV .[id number] [facility] Rx#:[id number] Heparin Sod,Pork in 0.45% 234.582 250 NaCl 25,000 unit In 0.45 % NaCl 1 250ml.bag @ 8.19 UNITS/KG/HR 10 mls/hr IV .Q24H [facility] Rx#:[id number] Labetalol 200 mg In 185 Sodium Chloride 0.9% 160 ml @ 2 MG/MIN 120 mls/hr IV .Q1H40M [facility] Rx#: [id number] fentaNYL (PF). 2,500 mcg 712.113 899.63 In Sodium Chloride 0.9% 200 ml @ 0.5 MCG/KG/HR 6. 577 mls/hr IV .Q24H [facility] Rx#:[id number] propofoL 1,000 mg In 569.616 428.699 100 Empty Bag 1 bag @ Titrate IV .Q0M [facility] Rx#: [id number] Oral 20 Tube Feeding 48 48 Other 120 210 Output: Urine 2430 2040 230 Other: Voiding Method Indwelling Catheter Indwelling Catheter # Bowel Movements 1 ABP, PAP, CO, CI - Last Documented Arterial Blood Pressure 125/68 - Exam No acute distress, sedated and off paralytic, with a midline tracheostomy tube. Head exam was generally normal. There was no scleral icterus or corneal arcus. Mucous membranes were moist. Neck was supple and without jugular venous distension, thyromegaly, or carotid bruits. Carotids were easily palpable bilaterally. There was no adenopathy. The patient is a tracheostomy and a tracheostomy is clean Lungs sounds are diminished bilaterally patient has coarse crackles throughout the lung stevens Cardiac exam revealed the PMI to be normally situated and sized. The rhythm was regular and no extrasystoles were noted during several minutes of auscultation. The first and second heart sounds were normal and physiologic splitting of the second heart sound was noted. There were no murmurs, rubs, clicks, or gallops. Abdominal exam revealed normal bowel sounds. The abdomen was soft, non-tender, and without masses, organomegaly, or appreciable enlargement of the abdominal aorta. Examination of the extremities revealed easily palpable radial, femoral and pedal pulses. There was no cyanosis, clubbing or edema. Examination of the skin revealed no evidence of significant rashes, suspicious appearing nevi or other concerning lesions. Neurologically the patient sedated and off paralytic - Labs CBC & Chem 7: 08/22/21 05:15 08/22/21 05:15 Labs: Abnormal Lab Results - Last 24 Hours (Table) 08/21/21 08/21/21 08/21/21 Range/Units 11:41 12:16 18:46 RBC (4.30-5.90) m/uL Hgb (13.0-17.5) gm/dL Hct (39.0-53.0) % MCHC (31.0-37.0) g/dL RDW (11.5-15.5) % APTT (22.0-30.0) sec D-Dimer (<0.60) mg/L FEU ABG pO2 80 L (83-108) mmHg ABG HCO3 27 H (21-25) mmol/L ABG Total CO2 28 H (19-24) mmol/L ABG O2 Saturation 97.1 H (94-97) % BUN (9-20) mg/dL POC Glucose (mg/dL) 110 H 102 H (75-99) mg/dL ALT (4-49) U/L Lactate Dehydrogenase (313-618) U/L C-Reactive Protein (<1.0) mg/dL Total Protein (6.3-8.2) g/dL Albumin (3.5-5.0) g/dL 08/22/21 08/22/21 08/22/21 Range/Units 05:05 05:15 05:15 RBC 2.72 L (4.30-5.90) m/uL Hgb 7.8 L (13.0-17.5) gm/dL Hct 26.5 L (39.0-53.0) % MCHC 29.2 L (31.0-37.0) g/dL RDW 20.4 H (11.5-15.5) % APTT (22.0-30.0) sec D-Dimer (<0.60) mg/L FEU ABG pO2 (83-108) mmHg ABG HCO3 27 H (21-25) mmol/L ABG Total CO2 28 H (19-24) mmol/L ABG O2 Saturation (94-97) % BUN 21 H (9-20) mg/dL POC Glucose (mg/dL) (75-99) mg/dL ALT 55 H (4-49) U/L Lactate Dehydrogenase 729 H (313-618) U/L C-Reactive Protein 5.5 H (<1.0) mg/dL Total Protein 5.4 L (6.3-8.2) g/dL Albumin 2.7 L (3.5-5.0) g/dL 08/22/21 Range/Units 05:15 RBC (4.30-5.90) m/uL Hgb (13.0-17.5) gm/dL Hct (39.0-53.0) % MCHC (31.0-37.0) g/dL RDW (11.5-15.5) % APTT 34.9 H (22.0-30.0) sec D-Dimer 4.05 H (<0.60) mg/L FEU ABG pO2 (83-108) mmHg ABG HCO3 (21-25) mmol/L ABG Total CO2 (19-24) mmol/L ABG O2 Saturation (94-97) % BUN (9-20) mg/dL POC Glucose (mg/dL) (75-99) mg/dL ALT (4-49) U/L Lactate Dehydrogenase (313-618) U/L C-Reactive Protein (<1.0) mg/dL Total Protein (6.3-8.2) g/dL Albumin (3.5-5.0) g/dL Assessment and Plan Plan: 1 Acute hypoxemic respiratory failure secondary to coronavirus associated pneumonia, status post intubation and mechanical ventilation on August 06. Status post tracheostomy tube insertion, 08/14/2021. . The patient remains on a mechanical ventilator. The patient is currently on a pressure control mode of mechanical ventilation. Chest x-ray was noted. Blood gases was noted. No major change in the overall chest x-ray findings. Remains on Decadron. He has completed the course of Baricitinib. Decadron is currently at 4 mg. He is off IV heparin as the patient is going to undergo a combination of sedatives. He remains on a combination of sedatives. He is off paralytics for now. 2 Acute respiratory distress syndrome secondary to COVID-19 related to pneumonia. Peak and static pressure is improved and the patient is currently on a pressure control mode of mechanical ventilation. 3 Elevated inflammatory marker secondary to coronavirus infection. The inflammatory markers are essentially downtrending 4 Acute/subacute pulmonary embolism. This was identified on a CT angios gram of the chest at the time of admission. Doppler of the lower extremities were negative and the patient remains on IV heparin. 5 Elevated liver enzymes secondary to coronavirus infection. 6 Morbid obesity. 7 hypertension on Lopressor and amlodipine and hydralazine for blood pressure control. 8 acute kidney injury, improved 9 anemia, multifactorial, no signs of any acute bleeding and the patient remains on IV heparin 10 enteral feeding for nutritional support and the patient is currently receiving Nepro at 14 and his last bowel movement was on 08/16/2021, the patient had a lifetime of the abdomen showed some nonspecific dilation of the large bowel. The patient was given laxative and he had a normal adequate bowel activity. This morning, the patient was taken off the IV heparin, she'll feeds on hold in preparation for a PEG tube insertion. Plan The patient is currently off paralytics The goal is to eliminate the propofol if possible and keep the patient on examination Precedex and fentanyl. Obviously is hypertensive reactions are becoming an ongoing issue. For that reason, I'm going to increase the maintenance blood pressure medication and utilize metoprolol dose of 50 mg twice a day, hydralazine as a dose of 75 mg twice a day and Norvasc at a dose of 5 mg twice a day. PEG tube insertion today and for that reason IV heparin has been discontinued. We'll restart anticoagulation after the procedure Continue Decadron 4 milligram once a day The patient is currently off antibiotics Continue enteral feeding for nutritional support, and the patient will be given a PEG tube today The patient was given laxative yesterday and the patient had adequate stooling, continues the laxatives for now Recheck inflammatory markers Renal function is stable Given the patient's Lasix dose of 40 mg IV push 1 Family was updated and will continue to follow and make further recommendations based on his progress. This is a critically care evaluation was done and more than 30 minutes. We'll contact the and informed her of the progress. Time with Patient: Greater than 30
[2021-08-22] MEDS: fentaNYL (PF) 2,500 MCG in SODIUM CHLORIDE 0.9% 200 ML IV SCH (12:00)
[2021-08-22] MEDS ORDERED: CISATRACURIUM 2 MG/ML 5 ML VIAL IV ONE (13:27)
[2021-08-22] MEDS: SODIUM CHLORIDE 0.9% 1,000 ML IV SCH (14:24)
[2021-08-22] MEDS: hydrALAZINE HCL 25 MG TAB PO SCH ×2 (17:09→21:54)
[2021-08-22] MEDS: MIDAZOLAM HCL 50 MG in SODIUM CHLORIDE 0.9% 40 ML IV SCH (17:17)
[2021-08-22 17:24] LABS: Glucose,Whole Blood 86 mg/dL (75-99)
--- NOTE | 2021-08-22 17:58 | XR ---
EXAMINATION TYPE: XR chest 1V portable DATE OF EXAM: 08/22/2021 COMPARISON: Chest x-ray 08/22/2021 HISTORY: NG tube placement TECHNIQUE: Single frontal view of the chest is obtained. FINDINGS: Tracheostomy tube is overlying the tracheal air column, distal tip of the tube is approxim ately 4 to 5 mm from the delmer. NG tube is present with the distal tip not included on exam however portion of the tube is seen within the stomach. There is a left-sided PICC line in place, distal tip is overlying the innominate vein. No evident pneumothorax or pleural effusion. Bilateral airspace dis ease persists. Cardiac mediastinal silhouette is stable. IMPRESSION: NG tube is within the stomach, distal tip not included on exam.
[2021-08-22] MEDS: METOPROLOL TARTRATE 50 MG TAB PO SCH (21:54)
[2021-08-22 23:05] LABS: Glucose,Whole Blood 79 mg/dL (75-99)
[2021-08-22] MEDS: HEPARIN SODIUM 1,000 UN/ML (10ML VL) IV PRN (23:29)
--- NOTE | 2021-08-23 00:32 | P.PN ---
Subjective Progress Note Date: 08/22/21 Principal diagnosis: COVID-19 bilateral pneumonia Acute hypoxic respiratory failure 31 years old -[place] man with no significant past medical history presents with dyspnea which started yesterday associated with fever and coughing. Patient tested positive for covid earlier on Thursday after he felt with fever and cough on Thursday but at that time he was not dyspneic. He denies chest pain or abdominal pain but he has diarrhea on and off. No vomiting. He is saturating 89% on 6 L oxygen via nasal cannula, afebrile. Tachypneic with a breathing rate at 23. CBC, is unremarkable. INR is normal at 1.0. Sodium is 1:30, creatinine normal at 1.1, glucose 103. AST is mildly elevated 106 and ALT mildly elevated 106. Elevated lactate dehydrogenase 2600 and C-reactive protein 20.3. Cholelithiasis positive EKG shows sinus tachycardia and [address]-T changes Chest x-ray showing bilateral infiltrates 08/03/2021 patient is seen and evaluated ; continues to have difficulty breathing secondary to COVID-19 pneumonia. Earlier this morning at around 4 AM, the patient had a spell where he had an increased cough and in between he was unable to catch his breath and the patient desaturated. At that point, he was placed on BiPAP. He was quite hypoxic and he gradually build himself up and currently is back on 14/7 cm of water with an FiO2 of 90%. He is currently holding his BiPAP mask on his face. He is comfortable. He is also willing to consider to go back on high flow oxygen in addition to 100% on a beta facemask. --He remains on Decadron 6 mg on a daily basis. He remains on Baricitinib 4 mg on a daily basis. He remains on Lovenox 40 mg subcu on a daily basis. Labs are reviewed and reveal white cell count is at 9.8 with hemoglobin of 12.1. His d-dimer from 08/01/2021 was 1.87. Creatinine is at 1.09 with a BUN of 30 and the rest of the electrodes are all within normal limits. He is afebrile. He is tolerating his diet as the patient is able to eat in between different modes of oxygen delivery. He did have a spike of temperature of 11.6 yesterday. He is tachypneic his breathing is labored. Continue BiPAP treatment alternating with high flow oxygen at 6 L with an FiO2 of 90% Will monitor this patient on the medical floor and transferred to the intensive care unit if there is any worsening 08/04/2021 the patient is somewhat better compared to yesterday. - The patient gradually improved since then and currently is on high flow oxygen and 60 L of FiO2 of 90% in addition to 100% nonrebreather facemask; He remains on Decadron 6 mg on a daily basis and addition to Baricitinib 4 mg by mouth rachna; Lovenox and the dose is adjusted to 60 mg subcu every 12 hours because of an elevated d-dimer of 14.3. Meanwhile, his LDH still elevated at 2954 and a CRP still elevated at 13.8. Platelet electrodes are all within normal limits. His white cell count of 15.3 with hemoglobin of 13.4. Chest x- ray from today was reviewed and was compared to the earlier chest x-ray showed improvement in the inspiratory effort and there is also improvement in the right basilar consolidation. However there is still persistent and diffuse breath and pulmonary infiltrates perihilar and lower lobes bilaterally. Patient is awake and alert. No altered mentation. No other new complaints otherwise for now. 08/16/2021 The patient was admitted to the hospital with coronavirus associated pneumonia; moved to the intensive care unit on August 06, and intubated on the same day. He remains on the mechanical ventilator. --On August 14, the patient underwent tracheostomy. The PEG tube was attempted, but was not able to be done. Ventilator settings include the volume assist control mode White count 15.7, hemoglobin 7.5, hematocrit 23.9, platelet count 429,000. D- dimer was 5.08. Sodium 137, potassium 4.7, chlorides 107, CO2 24, anion gap is 6, BUN 41, creatinine 1.30. Albumin is 2.8. C-reactive protein is 3.8. Chest x-ray shows diffuse bilateral infiltrates. No change in chest x-ray compared to prior x-rays. Patient remains in intensive care unit with critical care on board; remains on IV Zosyn and Levaquin; cultures are negative so far; critical coronary recommending to continue with current management at this time 08/17/2021 Patient is seen and evaluated in ICU; remains on the mechanical ventilator; patient underwent tracheostomy. Arterial blood gases show pO2 of 81, pCO2 48, and a pH is 7.36. The patient's on saline at 20 mL an hour, fentanyl at 4 mcg/kg/h, propofol at 75 mcg/kg/m, Nimbex at 3 g kilogram per minute, and tube feedings with Nepro at 14 mL an hour, which is goal. Last night, because of bleeding around the tracheostomy site, patient received 1 unit of packed red blood cells, 1 unit of platelets, and protamine sulfate. lab review revealsWhite count is 15.2, hemoglobin 7.7, hematocrit 24.6, and platelet count 348,000. Sodium 135, potassium 4.7, chlorides 107, CO2 25, anion gap 3, BUN 32, creatinine 1.26. Chest x-ray from today, shows stable bilateral pulmonary infiltrates. patient underwent a trial of discontinuing Nimbex; it was restarted once patient became tachypneic 08/18/2021 Patient is seen and evaluated in ICU; remains intubated and mechanically ventilated; remains sedated - patient underwent tracheostomy tube placement on 08/14/2021. A PEG tube was attempted, but was unsuccessful; surgery on board. - labs are reviewed and reveal a white count of 14.7 in room 8.7 hematocrit 27.5 and a platelet count 349,000. Sodium potassium chloride CO2 all normal. Anion gap 6. BUN 28, creatinine 1.16. Albumin was 3.1. Chest x-ray continues to show diffuse bilateral patchy infiltrates. There is also the presence of the midline tracheostomy tube. Patient remains on labetalol for blood pressure control But intensive care service patient has not been able to tolerate a holiday from Nimbex; remains critically ill 08/19/2021 Patient remains in ICU and remains intubated and mechanically ventilated; remains sedated Patient is evaluated by general surgery to reassess possible PEG tube placement; patient is currently on tube feeding with nephro lab review shows a white blood count of 11.6, hemoglobin 7.6 and platelet count of 294 nephrology on board for acute renal injury, acute tubular necrosis; with creatinine down to 1.17 08/20/2021 Patient remains in ICU; remains intubated for COVID-19 related pneumonia/ARDS; patient clinically remains unchanged in past 24 hours and remains on ventilator support with previous settings; he is status post tracheostomy; PEG tube was attempted and was unsuccessful; general surgery currently on board with plans for repeat attempt at possible PEG tube insertion at a later stage; patient has an NG tube for nutrition Vital signs are reviewed with temperature 99.5, pulse 87, respiration 38 and blood pressure 168/90; lab review shows to be preceded 11.4, hemoglobin 9.0, hematocrit 27.8, sodium 135, potassium 4.8, BUN/creatinine of 25/1.17 08/21/2021 Patient is seen and evaluated. Patient's discussed nursing staff. Patient currently has a tracheostomy which is dry, clean, and intact. Patient suffers from COVID19 pneumonia complicated by ARDS and prolonged respiratory failure. Current issue at hands remains the patient's respiratory failure. He is taken off paralytics and now on combination of drugs in order to manage his sedation. Current medication regimen includes propofol, fentanyl, precedex. Patient's inflammatory markers have trended down specifically LDH of 728 and CRP down to 4.8. D-Dimer has also trended down to 4.1. Patient is currently on enteral feeding for nutrition. This morning tube feeds were held in preparation for PEG tube insertion. No other major changes or significant events in the past 24 hours. 08/22/2021 Patient is seen and evaluated . Patient's case discussed with the nursing staff. Patient remains in the ICU and on the mechanical ventilator. Patient has been having difficulty coming off sedation due to an acute hypertensive reaction. Patient was placed on Cleviprex drip, labetolol drip, Versed; both which were unsuccessful. Due to this patient has been placed on a higher dose of sedation. Patient currently on Precedex, Propofol, and Fentanyl. Patient's blood pressure is being well-controlled on a combination of drugs. Patient was taken off IV heparin this morning. The patient is scheduled for bedside PEG tube insertion ; current enteral feeding is on hold. The chest x-ray showed diffuse breath and pulmonary infiltrates consistent with COVID19 pneumoniaARDS. Patient is on decadron. Patient is afebrile. On examination, patient has slight edema in the upper extremities bilaterally, less in the lower extremities. He was receiving feeding through his an NG tube, currently tube feeds are on hold. Patient is no distress and there seems to be no major changes from yesterday. Objective - Vital Signs Vital signs: Vital Signs Temp 100.6 F H 08/22/21 04:00 Pulse 88 08/22/21 07:15 Resp 32 H 08/22/21 07:15 BP 177/120 08/22/21 07:15 Pulse Ox 94 L 08/22/21 07:15 Intake & Output 08/21/21 08/22/21 08/22/21 18:59 06:59 18:59 Intake Total 2614.061 2409.329 223 Output Total 2430 2040 230 Balance 184.061 369.329 -7 Weight 121.3 kg 120.9 kg Intake: IV 220 273 23 Sodium Chloride 0.9% 1, 220 240 20 000 ml @ 20 mls/hr IV . Q24H [facility] Rx#:[id number] pressure bag .9 33 3 Intake, IV Titration 2206.061 1878.329 200 Amount Clevidipine Butyrate 25 6.600 mg In Empty Bag 1 bag @ 1 MG/HR 2 mls/hr IV .Q24H [facility] Rx#:[id number] Dexmedetomidine/0.9% NaCl 498.15 300.00 100 (Pmx) 400 mcg In Empty Bag 1 bag @ 0.2 MCG/KG/HR 6 mls/hr IV .[id number] [facility] Rx#:[id number] Heparin Sod,Pork in 0.45% 234.582 250 NaCl 25,000 unit In 0.45 % NaCl 1 250ml.bag @ 8.19 UNITS/KG/HR 10 mls/hr IV .Q24H [facility] Rx#:[id number] Labetalol 200 mg In 185 Sodium Chloride 0.9% 160 ml @ 2 MG/MIN 120 mls/hr IV .Q1H40M [facility] Rx#: [id number] fentaNYL (PF). 2,500 mcg 712.113 899.63 In Sodium Chloride 0.9% 200 ml @ 0.5 MCG/KG/HR 6. 577 mls/hr IV .Q24H [facility] Rx#:[id number] propofoL 1,000 mg In 569.616 428.699 100 Empty Bag 1 bag @ Titrate IV .Q0M [facility] Rx#: [id number] Oral 20 Tube Feeding 48 48 Other 120 210 Output: Urine 2430 2040 230 Other: Voiding Method Indwelling Catheter Indwelling Catheter # Bowel Movements 1 ABP, PAP, CO, CI - Last Documented Arterial Blood Pressure 125/68 - Exam GENERAL: The patient is alert and oriented x3, not in any acute distress. Well developed, well nourished. HEENT: Pupils are round and equally reacting to light. EOMI. No scleral icterus. No conjunctival pallor. Normocephalic, atraumatic. No pharyngeal erythema. No thyromegaly. CARDIOVASCULAR: S1 and S2 present. No murmurs, rubs, or gallops. -PULMONARY: Chest is clear to auscultation, no wheezing bilateral crepitation, tachypnea ABDOMEN: Soft, nontender, nondistended, normoactive bowel sounds. No palpable organomegaly. MUSCULOSKELETAL: No joint swelling or deformity. EXTREMITIES: No cyanosis, clubbing, or pedal edema. NEUROLOGICAL: Gross neurological examination did not reveal any focal deficits. SKIN: No rashes. No petechiae - Labs CBC & Chem 7: 08/22/21 05:15 08/22/21 05:15 Labs: Abnormal Lab Results - Last 24 Hours (Table) 08/21/21 08/21/21 08/21/21 Range/Units 11:41 12:16 18:46 RBC (4.30-5.90) m/uL Hgb (13.0-17.5) gm/dL Hct (39.0-53.0) % MCHC (31.0-37.0) g/dL RDW (11.5-15.5) % APTT (22.0-30.0) sec D-Dimer (<0.60) mg/L FEU ABG pO2 80 L (83-108) mmHg ABG HCO3 27 H (21-25) mmol/L ABG Total CO2 28 H (19-24) mmol/L ABG O2 Saturation 97.1 H (94-97) % BUN (9-20) mg/dL POC Glucose (mg/dL) 110 H 102 H (75-99) mg/dL ALT (4-49) U/L Lactate Dehydrogenase (313-618) U/L C-Reactive Protein (<1.0) mg/dL Total Protein (6.3-8.2) g/dL Albumin (3.5-5.0) g/dL 08/22/21 08/22/21 08/22/21 Range/Units 05:05 05:15 05:15 RBC 2.72 L (4.30-5.90) m/uL Hgb 7.8 L (13.0-17.5) gm/dL Hct 26.5 L (39.0-53.0) % MCHC 29.2 L (31.0-37.0) g/dL RDW 20.4 H (11.5-15.5) % APTT (22.0-30.0) sec D-Dimer (<0.60) mg/L FEU ABG pO2 (83-108) mmHg ABG HCO3 27 H (21-25) mmol/L ABG Total CO2 28 H (19-24) mmol/L ABG O2 Saturation (94-97) % BUN 21 H (9-20) mg/dL POC Glucose (mg/dL) (75-99) mg/dL ALT 55 H (4-49) U/L Lactate Dehydrogenase 729 H (313-618) U/L C-Reactive Protein 5.5 H (<1.0) mg/dL Total Protein 5.4 L (6.3-8.2) g/dL Albumin 2.7 L (3.5-5.0) g/dL 08/22/21 Range/Units 05:15 RBC (4.30-5.90) m/uL Hgb (13.0-17.5) gm/dL Hct (39.0-53.0) % MCHC (31.0-37.0) g/dL RDW (11.5-15.5) % APTT 34.9 H (22.0-30.0) sec D-Dimer 4.05 H (<0.60) mg/L FEU ABG pO2 (83-108) mmHg ABG HCO3 (21-25) mmol/L ABG Total CO2 (19-24) mmol/L ABG O2 Saturation (94-97) % BUN (9-20) mg/dL POC Glucose (mg/dL) (75-99) mg/dL ALT (4-49) U/L Lactate Dehydrogenase (313-618) U/L C-Reactive Protein (<1.0) mg/dL Total Protein (6.3-8.2) g/dL Albumin (3.5-5.0) g/dL Assessment and Plan Assessment: Acute bilateral Covid pneumonia Acute hypoxic respiratory failure Elevated inflammatory markers Obesity with BMI of 49.8 Plan: This is a pleasant 31 years old male who presents with bilateral Covid pneumonia and hypoxia. Continue with oxygen as needed Continue With dexamethasone and Lovenox. Continue with vitamin C, vitamin D and zinc c/w baricitinib Pulmonary consult Labs and medication were reviewed.. Continue same treatment. Continue with symptomatic treatment. Resume home medication. Monitor lytes and vitals. DVT and GI prophylaxis. Further recommendations depends on the clinical course of the patient DVT prophylaxis: Subcutaneous Lovenox GI Prophylaxis: Pepcid Prognosis is guarded
[2021-08-23] MEDS: HEPARIN SOD,PORK IN 0.45% NACL 25,000 UNIT in 0.45% NACL 1 250ML.BAG IV SCH (00:37)
[2021-08-23] MEDS: DEXMEDETOMIDINE/0.9% NACL(PMX) 400 MCG in EMPTY BAG 1 BAG IV SCH ×6 (01:01→22:00)
[2021-08-23] MEDS: fentaNYL (PF). 2,500 MCG in SODIUM CHLORIDE 0.9% 200 ML IV SCH ×3 (01:25→06:55)
[2021-08-23 04:39] LABS: Anisocytosis Slight; Basophils % (A) 0 %; Eosinophils # (A) 0.2 k/uL (0-0.7); Eosinophils % (A) 4 %; HCT 28.5 % (39.0-53.0); HGB 8.5 gm/dL (13.0-17.5); Hypochromasia Marked; Lymphocytes # (A) 1.2 k/uL (1.0-4.8); Lymphocytes % (A) 22 %; MCHC 29.8 g/dL (31.0-37.0); MCV 97.3 fL (80.0-100.0); Macrocytosis Moderate; Mean Platelet Volume 9.1; Monocytes # (A) 0.3 k/uL (0-1.0); Monocytes % (A) 5 %; Neutrophils # (A) 3.6 k/uL (1.3-7.7); Neutrophils % (A) 67 %; Platelet Count 199 k/uL (150-450); Poikilocytosis Slight; RBC 2.93 m/uL (4.30-5.90); RDW 19.7 % (11.5-15.5); WBC 5.4 k/uL (3.8-10.6)
[2021-08-23 05:13] LABS: ABG HCO3 27 mmol/L (21-25); ABG Oxygen Saturation 93.3 % (94-97); ABG PCO2 45 mmHg (35-45); ABG PH 7.39 (7.35-7.45); ABG PO2 68 mmHg (83-108); ABG TCO2 28 mmol/L (19-24); Allen Test Performed? Yes
[2021-08-23 05:37] LABS: ALT 42 U/L (4-49); AST 22 U/L (17-59); African American GFR (CKD) >90 (>60 ml/min/1.73 sqM); Albumin 2.6 g/dL (3.5-5.0); Alkaline Phosphatase 55 U/L (38-126); Anion Gap 5 mmol/L; Blood Urea Nitrogen 22 mg/dL (9-20); Calcium 8.7 mg/dL (8.4-10.2); Carbon Dioxide 25 mmol/L (22-30); Chloride 107 mmol/L (98-107); Glucose 82 mg/dL (74-99); Magnesium 1.6 mg/dL (1.6-2.3); Non-African American GFR(CKD) >90 (>60 ml/min/1.73 sqM); Potassium 3.5 mmol/L (3.5-5.1); Sodium 137 mmol/L (137-145); Total Bilirubin 0.7 mg/dL (0.2-1.3); Total Protein 5.3 g/dL (6.3-8.2)
[2021-08-23 05:58] LABS: Glucose,Whole Blood 69 mg/dL (75-99)
[2021-08-23 06:00] LABS: Glucose,Whole Blood 63 mg/dL (75-99)
[2021-08-23] MEDS ORDERED: DEXTROSE 50% SYRINGE 50 ML IVP STA (06:01)
[2021-08-23] MEDS: INSULIN ASPART (NovoLOG) 100 UNIT/ML VIAL SQ SCH ×3 (06:04→18:35)
[2021-08-23] MEDS: MAGNESIUM SULFATE-D5W PMX 1 GM in DEXTROSE/WATER 1 100ML.BAG IVPB SCH ×3 (06:04→21:15)
[2021-08-23] MEDS: POTASSIUM BICARBONATE/CIT AC 20 MEQ TABLET.EFF NG-TUBE SCH ×2 (06:12→07:03)
[2021-08-23 06:51] LABS: Glucose,Whole Blood 111 mg/dL (75-99)
--- NOTE | 2021-08-23 07:11 | XR ---
EXAMINATION TYPE: XR chest 1V portable DATE OF EXAM: 08/23/2021 COMPARISON: 08/22/2021 HISTORY: SOB, Follow Up FINDINGS: Indwelling tubes and catheters are unchanged. Persistent reticulonodular infiltrates throughout both lung stevens. Stable appearance of the cardio-mediastinal structures at this time. IMPRESSION: 1. Stable portable chest. Clinical correlation and follow up until resolution is recommended.
[2021-08-23] MEDS: ALBUTEROL HFA INHALER INHALATION PRN ×3 (07:26→20:08)
--- NOTE | 2021-08-23 08:05 | P.OP ---
Date of Procedure: 08/22/21 Preoperative Diagnosis: Malnutrition Postoperative Diagnosis: Malnutrition Morbid obesity Procedure(s) Performed: EGD Anesthesia: MAC Surgeon: Darian Green Pathology: none sent Condition: stable Disposition: PACU Description of Procedure: Patient's placed on the bed in supine position. He received general anesthesia. The gastroscope placed oropharynx passed in the esophagus and into the stomach. The nasogastric tube was withdrawn. The stomach was insufflated with air. A suitable light reflux could not be well-visualized due to the patient's large body size. Several attempts were made to see a light reflux on the abdominal wall. However this wasn't possible. At this point the procedure was stopped. Due to the patient's large body size a percutaneous gastrostomy tube cannot be placed. If a feeding tube as needed. He will need a open gastrostomy.
--- NOTE | 2021-08-23 08:31 | P.PN ---
Subjective Progress Note Date: 08/23/21 31-year-old black male, being seen in follow-up in the intensive care unit as the patient is a case of COVID-19 related pneumonia complicated by prolonged respiratory failure,. He was admitted to the hospital on July 31 with coronavirus associated pneumonia. On August 06, because of worsening hypoxemic respiratory failure, the patient was moved to the ICU and intubated. On August 14, the patient underwent tracheostomy tube placement. A PEG tube was attempted, but could not be performed because of anatomic reasons. On 08/19/2021, the patient remains on the volume assist control mode, rate 38, tidal volume 375, FiO2 50%, PEEP of 15. The patient is currently on fentanyl at 5.5 mcg/kg/h, Nimbex at 4 mcg/kg/m, propofol at 75 mcg/kg/m, Cleveprex is off , Nepro, at 14 mL an hour which is goal. Chest x-ray continues to show diffuse bilateral patchy infiltrates. There is also the presence of the midline tracheostomy tube. The patient has a Bivona #9 tube. The patient remains on steroids and the patient is receiving Decadron 6 mg IV every [address] angiogram that was done on 08/06/2021 showed at least 2 nonobstructing thrombus in the right lung pulmonary artery. No mediastinal lymphadenopathy. There was evidence of groundglass bilateral pulmonary infiltrates consistent with COVID-19 related pneumonia. The Doppler of the lower extremity that was done back then was also negative for DVTs. Most recent d-dimer from 08/16/2021 showed a level of 5.08. Patient remains on IV heparin for now. He was started on metoprolol 25 mg by mouth twice a day and hydralazine 25 mg by mouth 4 times a day, when necessary and Trandate when necessary. Clevidipine drip is being weaned off. The pro-calcitonin levels from 08/18/2021 was 0.25. The highest level of pro-calcitonin was on 08/08/2021 with a level was as high as 5.5 and subsequently leveled off. The patient is still on a combination of antibiotics including Zosyn and Levaquin. All of the cultures of been negative. The chest x-ray showing bilateral pulmonary infiltrates. Tracheostomy tube is in a good location. No other complications. No pneumothorax. No pleural effusion. No consolidation. There is diffuse bilateral pulmonary infiltration. The blood gases from today showing a pH of 7.35 with a pCO2 of 48 and pO2 of 67. This was on FiO2 of 50% with a PEEP of 15. The patient remains on IV heparin. No evidence of any bleeding around the tracheostomy tube. We have opted to keep him on IV heparin rather than long-acting anticoagulation due to bleeding complications. The patient has a left upper extremity PICC line. Patient has a Lees catheter in place. The patient also has an arterial line and a right radial. The inflammatory markers in general were downtrending. 19 2020, I'm seeing the patient for a follow-up. The patient remains intubated on a mechanical ventilator for COVID-19 related pneumonia/ARDS. This morning, he remains and essentially the same ventilator support and settings with a rate of 38, tidal volume of 375, FiO2 of 70% with a PEEP of 15. The patient has a #[address] a tracheostomy tube in place. Chest x-ray was not done from today. Yesterday's chest x-ray was noted on the tracheostomy tube was in a good location. In terms of airway pressures, his peak pressures 32, static pressure is 9. The blood gases from today showed a pH of 7.32 with a pCO2 of 52 and pO2 of 60. Nevertheless, the pulse ox on the monitor is around 100%. Based on that, I gradually wean down the FiO2 down to 50% and I dropped the PEEP down to 14. The patient is currently off paralytics. He was taken off paralytics yesterday. At one point he became asynchronous with a mechanical ventilator and he was given Ativan overnight at a total of 2 mg. He is currently on propofol running at 75 mcg/kg per minute. His fentanyl is running at 8.5 mcg/kg/h. He is off Cleviprex. He is also receiving enteral feeding for insertion support with Nepro at the rate of 12 mL an hour. He remains on Decadron 6 mg IV every 12 hours. His anticoagulation was held yesterday bleed. The patient was found to have some occult blood in the stool. Hemoglobin today is stable at 9.0 and we have not witnessed any form of GI bleeding. Based on this, IV heparin will be restarted. D-dimer today's of 4.9. His inflammatory markers showed an LDH of 810 and is coming down compared to earlier values and his CRP level is 4.0. His pro-calcitonin level was low and antibiotics were discontinued. He continues to have a PICC line in his left upper extremity, arterial line in his right radial. Inflammatory markers are downtrending. He has a NG tube in place. General surgeries on the case for a possible PEG tube insertion of a later stage. 08/21/2021, the patient is being seen for a follow-up. Is a case of COVID-19 related pneumonia with ARDS and prolonged respiratory failure and the patient currently has a tracheostomy tube in place and the patient has a number a Bivona tracheostomy tube. For now, the active issue remains his respiratory failure. The patient was taken off the paralytics. We have managed to control his sedation with a combination of drugs including propofol which is running at 65 mcg/kg per minute and his triglyceride level is at 305. He is also on fentanyl are running at 7.5 mcg/kg/h and he is also on Precedex running at 1.3 mcg/kg/h. I think adjustment of the sedation was done based on his hypertensive reaction and synchrony with the mechanical ventilator. Based on this, I suggested using Cleviprex for blood pressure control. I also made some ventilator adjustments to improve his synchrony with the mechanical ventilator. Aspiration. Pressure control mode of mechanical ventilation. Earlier this morning, his blood gases showed a pH of 7.42 with a pCO2 of 44 and pO2 of 69. His peak airway pressure was 33 anesthetic air pressure was 31. In terms of inflammatory markers, the patient's LDH level is down to 728 and his CRP is down to 4.8. His pro- calcitonin level was 0.25. He d-dimer was down to 4.1. He is receiving enteral feeding for nutritional support. He is currently on Nepro at the rate of 40s an hour. Earlier this morning, tube feeds were held in preparation for PEG tube insertion. Otherwise, he is afebrile. No other significant events over the past 24 hours. Tracheostomy site is dry clean and intact. Fluid balance over the past 24 hours is in the order of +930 mL. 08/22/2021, patient is being seen for a follow-up, as the patient remains in the intensive care unit on a mechanical ventilator. For now, he is using a combination of sedative medications as the patient is having difficulties coming off sedation due to acute hypertensive reaction. I tried to put him on Cleviprex drip which made him very much tachycardic and we had to stop the Cleviprex. I also tried him on labetalol drip to control his blood pressure and that was also not successful. Based on that, he was kept on a higher dose of sedation for now and he is currently on a combination of Precedex running at 0.7 mcg/kg/h. The patient is also on propofol running at 30 mcg/kg per minute and the patient is also on fentanyl at 7.5 mcg/kg/h. I attended to put him also on Versed which didn't work as well and the patient was taken of the Versed infusion. This morning, he is calm and comfortable. His blood pressure is being managed a combination of antacid medication and the patient is on a combination of Norvasc 5 mg, metoprolol 25 mg twice a day and the patient is also on hydralazine 50 mg 3 times a day. The patient was taken off the IV heparin this morning. The patient is going to undergo a bedside PEG tube insertion by general surgery. His enterofeeding is currently on hold. He is currently on a pressure control mode of mechanical ventilation. His pressure control is at 60 cm of water with a PEEP of 14 and FiO2 of 50% with a rate of 32. Peak air pressure is 31 cm of water. The blood gas shows a pH of 7.4 with a pCO2 of 44 and pO2 of 83. The chest x-ray showed diffuse breath and pulmonary infiltrates consistent with COVID-19 related pneumoniaARDS. In terms of treatment, the patient is on Decadron and the patient is receiving 4 mg IV every 24 hours. His inflammatory markers continued to be lower and the patient's LDH level is at 729 with a CRP level of 5.5. electrolytes are normal. Pulses normal. D-dimer is at 4.05. Hemoglobin level is at 7.8. He is afebrile. Her net fluid balance over the past 24 hours has been in the order of negative for 60 mL. Overall, he has been a positive fluid balance and he has some increased edema in his upper extremities bilaterally and to lesser extent in lower extr emities. He is on enteral feeding for nutritional support. He was receiving feeding through his an NG tube in the form of Nepro at the rate of 12 mL an hour. Currently tube feeds are on hold. He was having bowel movements 08/23/2021, the patient is being seen in follow-up in the intensive care unit. On today's evaluation, the patient remains off paralytics. Sedation is being weaned off and the patient is opening up his eyes and following simple commands. He is very much drowsiness lethargic yet arousable and he is following simple commands. Extremely weak and all 4 extremities. This morning, his propofol is down to 15 mcg/kg per minute, fentanyl is at 6 mics.Per kilogram per hour and Precedex at 0.7 mcg/mg/h.note that the patient was also started on Seroquel and he is receiving Seroquel at a dose of 50 mg twice a day. He remains on a mechanical ventilator. Is currently on a pressure control mode of mechanical ventilation. His rate is at 32 with a pressure control of 16, FiO2 of 40% and a PEEP of 13. I reviewed her blood gases from today and the patient has a pH of 7.39 with a pCO2 of 45 and pO2 of 68. Degenerating adequate tidal volumes. He is quite stiffness and a mechanical ventilator. No significant desaturation and his current pulse ox is around 90%. Chest x-ray still showing diffuse bilateral pulmonary infiltrates consistent with malignancy related pneumonia/ARDS. The patient has no significant orotracheal secretions. No evidence of any cough leak. He is receiving enteral feeding through an NG tube. Patient is receiving nephrolithiasis of 12 mL an hour. Note that we attempted to insert a PEG tube yesterday and this was again a failed procedure due to technical difficulties. The procedure itself was aborted. Meanwhile, the patient remains hemodynamically stable. His blood pressure is under better control. He has extensive edema in all 4 extremities. He was given a dose of Lasix yesterday and he remains in a positive fluid balance. Lasix will be restarted today. He remains on IV heparin regarding previous history of pulmonary embolism. As far as blood work, his inflammatory markers from today are still pending. LDH from yesterday was 729. Electrodes are normal. Renal function is normal. White cell count is currently at 5.4 with a hemoglobin of 8.5. In terms of his medications, the patient's remains on Decadron 4 mg on a daily basis. Blood pressure control is with a combination of amlodipine, hydralazine and metopr olol. IV fluids are currently at [facility]. Objective - Vital Signs Vital signs: Vital Signs Temp 98 F 08/23/21 04:00 Pulse 108 H 08/23/21 07:00 Resp 32 H 08/23/21 07:40 BP 149/93 08/23/21 07:00 Pulse Ox 93 L 08/23/21 07:40 Intake & Output 08/22/21 08/23/21 08/23/21 18:59 06:59 18:59 Intake Total 5809.978 9764.481 295.728 Output Total 4080 1420 195 Balance -2786.017 1451.481 100.728 Weight 120.6 kg Intake: IV 276 276 46 Sodium Chloride 0.9% 1, 240 240 40 000 ml @ 20 mls/hr IV . Q24H [facility] Rx#:[id number] pressure bag .9 36 36 6 Intake, IV Titration 7200.606 9397.481 237.728 Amount Dexmedetomidine/0.9% NaCl 100 (Pmx) 400 mcg In Empty Bag 1 bag @ 0.2 MCG/KG/HR 6 mls/hr IV .[id number] [facility] Rx#:[id number] Dexmedetomidine/0.9% NaCl 295.564 (Pmx) 400 mcg In Empty Bag 1 bag @ 0.7 MCG/KG/HR 21.158 mls/hr IV .Q4H44M [facility] Rx#:[id number] Heparin Sod,Pork in 0.45% 70.288 324.197 NaCl 25,000 unit In 0.45 % NaCl 1 250ml.bag @ 8.19 UNITS/KG/HR 10 mls/hr IV .Q24H [facility] Rx#:[id number] Midazolam HCl 50 mg In 37.283 Sodium Chloride 0.9% 40 ml @ 1 MG/HR 1 mls/hr IV .Q24H [facility] Rx#:[id number] fentaNYL (PF) 2,500 mcg 130.444 In Sodium Chloride 0.9% 200 ml @ 0.5 MCG/KG/HR 6. 577 mls/hr IV .Q24H [facility] Rx#:[id number] fentaNYL (PF). 2,500 mcg 500 1250 In Sodium Chloride 0.9% 200 ml @ 0.5 MCG/KG/HR 6. 577 mls/hr IV .Q24H [facility] Rx#:[id number] propofoL 1,000 mg In 347.695 290.720 70.001 Empty Bag 1 bag @ Titrate IV .Q0M [facility] Rx#: [id number] Tube Feeding 255 12 Other 180 Output: Urine 4080 1420 195 Other: Voiding Method Indwelling Catheter Indwelling Catheter Indwelling Catheter ABP, PAP, CO, CI - Last Documented Arterial Blood Pressure 151/95 - Exam No acute distress, sedated and off paralytic, with a midline tracheostomy tube.the patient is awake and he is opening his eyes spontaneously. He is following some simple commands. Head exam was generally normal. There was no scleral icterus or corneal arcus. Mucous membranes were moist. Neck was supple and without jugular venous distension, thyromegaly, or carotid bruits. Carotids were easily palpable bilaterally. There was no adenopathy. The patient is a tracheostomy and a tracheostomy is clean Lungs sounds are diminished bilaterally patient has coarse crackles throughout the lung stevens Cardiac exam revealed the PMI to be normally situated and sized. The rhythm was regular and no extrasystoles were noted during several minutes of auscultation. The first and second heart sounds were normal and physiologic splitting of the second heart sound was noted. There were no murmurs, rubs, clicks, or gallops. Abdominal exam revealed normal bowel sounds. The abdomen was soft, non-tender, and without masses, organomegaly, or appreciable enlargement of the abdominal aorta. Examination of the extremities revealed easily palpable radial, femoral and pedal pulses. There was no cyanosis, clubbing or there is +1 pitting edema in all 4 extremities. Examination of the skin revealed no evidence of significant rashes, suspicious appearing nevi or other concerning lesions. Neurologically the patient sedated and off paralytic, profound weakness in all 4 extremities, pupils are equal and reactive to light, arousable and he is following some simple commands. - Labs CBC & Chem 7: 08/23/21 04:00 08/23/21 04:00 Labs: Abnormal Lab Results - Last 24 Hours (Table) 08/22/21 08/23/21 08/23/21 Range/Units 22:00 04:00 04:00 RBC 2.93 L (4.30-5.90) m/uL Hgb 8.5 L (13.0-17.5) gm/dL Hct 28.5 L (39.0-53.0) % MCHC 29.8 L (31.0-37.0) g/dL RDW 19.7 H (11.5-15.5) % APTT 41.9 H (22.0-30.0) sec ABG pO2 (83-108) mmHg ABG HCO3 (21-25) mmol/L ABG Total CO2 (19-24) mmol/L ABG O2 Saturation (94-97) % BUN 22 H (9-20) mg/dL POC Glucose (mg/dL) (75-99) mg/dL Total Protein 5.3 L (6.3-8.2) g/dL Albumin 2.6 L (3.5-5.0) g/dL 08/23/21 08/23/21 08/23/21 Range/Units 04:00 05:09 05:55 RBC (4.30-5.90) m/uL Hgb (13.0-17.5) gm/dL Hct (39.0-53.0) % MCHC (31.0-37.0) g/dL RDW (11.5-15.5) % APTT 67.2 H (22.0-30.0) sec ABG pO2 68 L (83-108) mmHg ABG HCO3 27 H (21-25) mmol/L ABG Total CO2 28 H (19-24) mmol/L ABG O2 Saturation 93.3 L (94-97) % BUN (9-20) mg/dL POC Glucose (mg/dL) 69 L (75-99) mg/dL Total Protein (6.3-8.2) g/dL Albumin (3.5-5.0) g/dL 08/23/21 08/23/21 Range/Units 05:58 06:49 RBC (4.30-5.90) m/uL Hgb (13.0-17.5) gm/dL Hct (39.0-53.0) % MCHC (31.0-37.0) g/dL RDW (11.5-15.5) % APTT (22.0-30.0) sec ABG pO2 (83-108) mmHg ABG HCO3 (21-25) mmol/L ABG Total CO2 (19-24) mmol/L ABG O2 Saturation (94-97) % BUN (9-20) mg/dL POC Glucose (mg/dL) 63 L 111 H (75-99) mg/dL Total Protein (6.3-8.2) g/dL Albumin (3.5-5.0) g/dL Assessment and Plan Plan: 1 Acute hypoxemic respiratory failure secondary to coronavirus associated pneumonia, status post intubation and mechanical ventilation on August 06. Status post tracheostomy tube insertion, 08/14/2021. . The patient remains on a mechanical ventilator. The patient is currently on a pressure control mode of mechanical ventilation. Chest x-ray was noted. Blood gases was noted. No major change in the overall chest x-ray findings. Remains on Decadron. He has completed the course of Baricitinib. Decadron is currently at 4 mg. He is off IV heparin as the patient is going to undergo a combination of sedatives. on today's evaluation, the patient is on a lower dose of propofol and is being gradually weaned off. He remains on Precedex and fentanyl. He is arousable and following some simple commands. He remains on a pressure control mode of mechanical ventilation. Chest x-ray was noted. Blood gases was noted. 2 Acute respiratory distress syndrome secondary to COVID-19 related to pneumonia. Peak and static pressure is improved and the patient is currently on a pressure control mode of mechanical ventilation. 3 Elevated inflammatory marker secondary to coronavirus infection. The inflammatory markers are essentially downtrending 4 Acute/subacute pulmonary embolism. This was identified on a CT angios gram of the chest at the time of admission. Doppler of the lower extremities were negative and the patient remains on IV heparin. 5 Elevated liver enzymes secondary to coronavirus infection. 6 Morbid obesity. 7 hypertension on Lopressor and amlodipine and hydralazine for blood pressure control. 8 acute kidney injury, improved 9 anemia, multifactorial, no signs of any acute bleeding and the patient remains on IV heparin 10 enteral feeding for nutritional support and the patient is currently receiving Nepro at 14 and his last bowel movement was on 08/16/2021, the patient had a lifetime of the abdomen showed some nonspecific dilation of the large bowel. The patient was given laxative and he had a normal adequate bowel activity. the patient failed PEG tube insertion on 2 separate occasions 11 edema in all 4 extremities, will be started on Lasix. Plan The patient is currently off paralytics wean off propofol and discontinue Continue Precedex and fentanyl for now The Respiratory Rate on a Mechanical Ventilated on the 26, The Pressure Control down to 40 Cm of Water. Keep the PEEP of 13 with an FiO2 of 40% maintenance blood pressure medication and utilize metoprolol dose of 50 mg twice a day, hydralazine as a dose of 75 mg twice a day and Norvasc at a dose of 5 mg twice a day. Continue Decadronand drop the dose to 2 milligram once a day The patient is currently off antibiotics Continue enteral feeding for nutritional support Lasix 40 mg every 12 hours Started patient on Eliquis 5 mg by mouth twice a day Family was updated and will continue to follow and make further recommendations based on his progress. This is a critically care evaluation was done and more than 30 minutes. We'll contact the and informed her of the progress. Time with Patient: Greater than 30
[2021-08-23] MEDS: hydrALAZINE HCL 25 MG TAB PO SCH ×3 (08:32→21:19)
[2021-08-23] MEDS: QUEtiapine 50 MG TAB PO SCH ×2 (08:32→21:28)
[2021-08-23] MEDS: METOPROLOL TARTRATE 50 MG TAB PO SCH ×2 (08:32→21:17)
[2021-08-23] MEDS: ASCORBIC ACID 500 MG TAB PO SCH (08:34)
[2021-08-23] MEDS: SENNOSIDES-DOCUSATE SODIUM 1 EACH TAB PO SCH (08:34)
[2021-08-23] MEDS: PANTOPRAZOLE 40 MG/10 ML VIAL IVP SCH ×2 (08:34→21:18)
[2021-08-23] MEDS: amLODIPine 5 MG TAB PO SCH ×2 (08:34→21:18)
[2021-08-23] MEDS: CHOLECALCIFEROL 25 MCG (1000 IU) TABLET PO SCH (08:34)
[2021-08-23] MEDS: DEXAMETHASONE SOD PHOSPHATE 4 MG/ML 1 ML VIAL IV SCH ×2 (08:34→09:53)
[2021-08-23] MEDS: bisacodyL 10 MG SUPP RECTAL SCH (08:35)
[2021-08-23] MEDS: CHLORHEXIDINE GLUCONATE 15 ML CUP MUCOUS MEM SCH ×2 (08:35→21:18)
[2021-08-23] MEDS: APIXABAN 5 MG TAB PO SCH ×2 (09:52→21:16)
[2021-08-23] MEDS: FUROSEMIDE 10 MG/ML 4 ML VIAL IV SCH ×2 (10:12→21:18)
[2021-08-23] MEDS: fentaNYL (PF) 2,500 MCG in SODIUM CHLORIDE 0.9% 200 ML IV SCH ×3 (10:14→18:43)
[2021-08-23] MEDS: ZINC SULFATE 220 MG CAP PO SCH (10:17)
[2021-08-23 12:57] LABS: Glucose,Whole Blood 101 mg/dL (75-99)
[2021-08-23 13:40] LABS: Magnesium 1.8 mg/dL (1.6-2.3); Potassium 4.1 mmol/L (3.5-5.1)
--- NOTE | 2021-08-23 14:57 | P.PN ---
Subjective Progress Note Date: 08/23/21 CHIEF COMPLAINT: COVID-19 pneumonia HISTORY OF PRESENT ILLNESS: Patient remains in the ICU on mechanical ventilation. He is status post tracheostomy placementon 08/14/21. Patient had a second attempt for PEG tube placement yesterday. Light reflex was not visualized. PEG tube was unable to be placed. Afebrile. WBC is 5.4 hemoglobin 8.5 PHYSICAL EXAM: VITAL SIGNS: Reviewed. GENERAL: Well-developed in no acute distress. HEENT: No sclera icterus. Extraocular movements grossly intact. Moist buccal mucosa. Head is atraumatic, normocephalic. Tracheostomy site clean dry and intact ABDOMEN: Soft. distended NEUROLOGIC: Intubated and sedated ASSESSMENT: 1. Acute hypoxic respiratory failure due to COVID-19 pneumonia with prolonged mechanical intubation. Status post tracheostomy placement 2. Severe protein calorie malnutrition PLAN: -If patient is unable to continue nutrition support through NG tube, he may require an open gastrostomy -Continue ICU management -Continue supportive care Physician Sas Developer note has been reviewed by physician. Signing provider agrees with the documented findings, assessment, and plan of care. Objective - Vital Signs Vital signs: Vital Signs Temp 99.2 F 08/23/21 12:00 Pulse 92 08/23/21 14:00 Resp 27 H 08/23/21 14:00 BP 138/83 08/23/21 14:00 Pulse Ox 95 08/23/21 14:00 Intake & Output 08/22/21 08/23/21 08/23/21 18:59 06:59 18:59 Intake Total 2083.712 1725.481 1025.761 Output Total 4080 1420 2595 Balance -2786.017 1451.481 -1569.239 Weight 120.6 kg 120.6 kg Intake: IV 276 276 184 Sodium Chloride 0.9% 1, 240 240 160 000 ml @ 20 mls/hr IV . Q24H [facility] Rx#:[id number] pressure bag .9 36 36 24 Intake, IV Titration 7806.936 1230.481 663.761 Amount Dexmedetomidine/0.9% NaCl 100 (Pmx) 400 mcg In Empty Bag 1 bag @ 0.2 MCG/KG/HR 6 mls/hr IV .Q29H97P [facility] Rx#:[id number] Dexmedetomidine/0.9% NaCl 295.564 116.624 (Pmx) 400 mcg In Empty Bag 1 bag @ 0.7 MCG/KG/HR 21.158 mls/hr IV .Q4H44M [facility] Rx#:[id number] Heparin Sod,Pork in 0.45% 70.288 324.197 NaCl 25,000 unit In 0.45 % NaCl 1 250ml.bag @ 8.19 UNITS/KG/HR 10 mls/hr IV .Q24H [facility] Rx#:[id number] Midazolam HCl 50 mg In 37.283 Sodium Chloride 0.9% 40 ml @ 1 MG/HR 1 mls/hr IV .Q24H [facility] Rx#:[id number] fentaNYL (PF) 2,500 mcg 389.653 In Sodium Chloride 0.9% 200 ml @ 0.5 MCG/KG/HR 6. 577 mls/hr IV .Q24H [facility] Rx#:[id number] fentaNYL (PF). 2,500 mcg 500 1250 In Sodium Chloride 0.9% 200 ml @ 0.5 MCG/KG/HR 6. 577 mls/hr IV .Q24H [facility] Rx#:[id number] propofoL 1,000 mg In 347.695 290.720 120.201 Empty Bag 1 bag @ Titrate IV .Q0M [facility] Rx#: [id number] Tube Feeding 255 58 Other 180 120 Output: Urine 4080 1420 2595 Other: Voiding Method Indwelling Catheter Indwelling Catheter Indwelling Catheter ABP, PAP, CO, CI - Last Documented Arterial Blood Pressure 121/75 - Labs CBC & Chem 7: 08/23/21 04:00 08/23/21 12:57 Labs: Abnormal Lab Results - Last 24 Hours (Table) 08/22/21 08/23/21 08/23/21 Range/Units 22:00 04:00 04:00 RBC 2.93 L (4.30-5.90) m/uL Hgb 8.5 L (13.0-17.5) gm/dL Hct 28.5 L (39.0-53.0) % MCHC 29.8 L (31.0-37.0) g/dL RDW 19.7 H (11.5-15.5) % APTT 41.9 H (22.0-30.0) sec ABG pO2 (83-108) mmHg ABG HCO3 (21-25) mmol/L ABG Total CO2 (19-24) mmol/L ABG O2 Saturation (94-97) % BUN 22 H (9-20) mg/dL POC Glucose (mg/dL) (75-99) mg/dL Total Protein 5.3 L (6.3-8.2) g/dL Albumin 2.6 L (3.5-5.0) g/dL 08/23/21 08/23/21 08/23/21 Range/Units 04:00 05:09 05:55 RBC (4.30-5.90) m/uL Hgb (13.0-17.5) gm/dL Hct (39.0-53.0) % MCHC (31.0-37.0) g/dL RDW (11.5-15.5) % APTT 67.2 H (22.0-30.0) sec ABG pO2 68 L (83-108) mmHg ABG HCO3 27 H (21-25) mmol/L ABG Total CO2 28 H (19-24) mmol/L ABG O2 Saturation 93.3 L (94-97) % BUN (9-20) mg/dL POC Glucose (mg/dL) 69 L (75-99) mg/dL Total Protein (6.3-8.2) g/dL Albumin (3.5-5.0) g/dL 08/23/21 08/23/21 08/23/21 Range/Units 05:58 06:49 12:56 RBC (4.30-5.90) m/uL Hgb (13.0-17.5) gm/dL Hct (39.0-53.0) % MCHC (31.0-37.0) g/dL RDW (11.5-15.5) % APTT (22.0-30.0) sec ABG pO2 (83-108) mmHg ABG HCO3 (21-25) mmol/L ABG Total CO2 (19-24) mmol/L ABG O2 Saturation (94-97) % BUN (9-20) mg/dL POC Glucose (mg/dL) 63 L 111 H 101 H (75-99) mg/dL Total Protein (6.3-8.2) g/dL Albumin (3.5-5.0) g/dL
[2021-08-23 18:34] LABS: Glucose,Whole Blood 101 mg/dL (75-99)
[2021-08-23] MEDS: LABETALOL 5 MG/ML VIAL MDV IVP PRN (19:16)
[2021-08-23] MEDS ORDERED: Magnesium Replacement Protocol 1 EACH MISC MISCELLANE PRN ×2 (19:18→19:20)
[2021-08-23] MEDS: SODIUM CHLORIDE 0.9% 1,000 ML IV SCH (21:14)
--- NOTE | 2021-08-23 22:00 | P.PN ---
Subjective Progress Note Date: 08/23/21 Principal diagnosis: COVID-19 bilateral pneumonia Acute hypoxic respiratory failure 31 years old -[place] man with no significant past medical history presents with dyspnea which started yesterday associated with fever and coughing. Patient tested positive for covid earlier on Thursday after he felt with fever and cough on Thursday but at that time he was not dyspneic. He denies chest pain or abdominal pain but he has diarrhea on and off. No vomiting. He is saturating 89% on 6 L oxygen via nasal cannula, afebrile. Tachypneic with a breathing rate at 23. CBC, is unremarkable. INR is normal at 1.0. Sodium is 1:30, creatinine normal at 1.1, glucose 103. AST is mildly elevated 106 and ALT mildly elevated 106. Elevated lactate dehydrogenase 2600 and C-reactive protein 20.3. Cholelithiasis positive EKG shows sinus tachycardia and [address]-T changes Chest x-ray showing bilateral infiltrates 08/03/2021 patient is seen and evaluated ; continues to have difficulty breathing secondary to COVID-19 pneumonia. Earlier this morning at around 4 AM, the patient had a spell where he had an increased cough and in between he was unable to catch his breath and the patient desaturated. At that point, he was placed on BiPAP. He was quite hypoxic and he gradually build himself up and currently is back on 14/7 cm of water with an FiO2 of 90%. He is currently holding his BiPAP mask on his face. He is comfortable. He is also willing to consider to go back on high flow oxygen in addition to 100% on a beta facemask. --He remains on Decadron 6 mg on a daily basis. He remains on Baricitinib 4 mg on a daily basis. He remains on Lovenox 40 mg subcu on a daily basis. Labs are reviewed and reveal white cell count is at 9.8 with hemoglobin of 12.1. His d-dimer from 08/01/2021 was 1.87. Creatinine is at 1.09 with a BUN of 30 and the rest of the electrodes are all within normal limits. He is afebrile. He is tolerating his diet as the patient is able to eat in between different modes of oxygen delivery. He did have a spike of temperature of 11.6 yesterday. He is tachypneic his breathing is labored. Continue BiPAP treatment alternating with high flow oxygen at 6 L with an FiO2 of 90% Will monitor this patient on the medical floor and transferred to the intensive care unit if there is any worsening 08/04/2021 the patient is somewhat better compared to yesterday. - The patient gradually improved since then and currently is on high flow oxygen and 60 L of FiO2 of 90% in addition to 100% nonrebreather facemask; He remains on Decadron 6 mg on a daily basis and addition to Baricitinib 4 mg by mouth rachna; Lovenox and the dose is adjusted to 60 mg subcu every 12 hours because of an elevated d-dimer of 14.3. Meanwhile, his LDH still elevated at 2954 and a CRP still elevated at 13.8. Platelet electrodes are all within normal limits. His white cell count of 15.3 with hemoglobin of 13.4. Chest x- ray from today was reviewed and was compared to the earlier chest x-ray showed improvement in the inspiratory effort and there is also improvement in the right basilar consolidation. However there is still persistent and diffuse breath and pulmonary infiltrates perihilar and lower lobes bilaterally. Patient is awake and alert. No altered mentation. No other new complaints otherwise for now. 08/16/2021 The patient was admitted to the hospital with coronavirus associated pneumonia; moved to the intensive care unit on August 06, and intubated on the same day. He remains on the mechanical ventilator. --On August 14, the patient underwent tracheostomy. The PEG tube was attempted, but was not able to be done. Ventilator settings include the volume assist control mode White count 15.7, hemoglobin 7.5, hematocrit 23.9, platelet count 429,000. D- dimer was 5.08. Sodium 137, potassium 4.7, chlorides 107, CO2 24, anion gap is 6, BUN 41, creatinine 1.30. Albumin is 2.8. C-reactive protein is 3.8. Chest x-ray shows diffuse bilateral infiltrates. No change in chest x-ray compared to prior x-rays. Patient remains in intensive care unit with critical care on board; remains on IV Zosyn and Levaquin; cultures are negative so far; critical coronary recommending to continue with current management at this time 08/17/2021 Patient is seen and evaluated in ICU; remains on the mechanical ventilator; patient underwent tracheostomy. Arterial blood gases show pO2 of 81, pCO2 48, and a pH is 7.36. The patient's on saline at 20 mL an hour, fentanyl at 4 mcg/kg/h, propofol at 75 mcg/kg/m, Nimbex at 3 g kilogram per minute, and tube feedings with Nepro at 14 mL an hour, which is goal. Last night, because of bleeding around the tracheostomy site, patient received 1 unit of packed red blood cells, 1 unit of platelets, and protamine sulfate. lab review revealsWhite count is 15.2, hemoglobin 7.7, hematocrit 24.6, and platelet count 348,000. Sodium 135, potassium 4.7, chlorides 107, CO2 25, anion gap 3, BUN 32, creatinine 1.26. Chest x-ray from today, shows stable bilateral pulmonary infiltrates. patient underwent a trial of discontinuing Nimbex; it was restarted once patient became tachypneic 08/18/2021 Patient is seen and evaluated in ICU; remains intubated and mechanically ventilated; remains sedated - patient underwent tracheostomy tube placement on 08/14/2021. A PEG tube was attempted, but was unsuccessful; surgery on board. - labs are reviewed and reveal a white count of 14.7 in room 8.7 hematocrit 27.5 and a platelet count 349,000. Sodium potassium chloride CO2 all normal. Anion gap 6. BUN 28, creatinine 1.16. Albumin was 3.1. Chest x-ray continues to show diffuse bilateral patchy infiltrates. There is also the presence of the midline tracheostomy tube. Patient remains on labetalol for blood pressure control But intensive care service patient has not been able to tolerate a holiday from Nimbex; remains critically ill 08/19/2021 Patient remains in ICU and remains intubated and mechanically ventilated; remains sedated Patient is evaluated by general surgery to reassess possible PEG tube placement; patient is currently on tube feeding with nephro lab review shows a white blood count of 11.6, hemoglobin 7.6 and platelet count of 294 nephrology on board for acute renal injury, acute tubular necrosis; with creatinine down to 1.17 08/20/2021 Patient remains in ICU; remains intubated for COVID-19 related pneumonia/ARDS; patient clinically remains unchanged in past 24 hours and remains on ventilator support with previous settings; he is status post tracheostomy; PEG tube was attempted and was unsuccessful; general surgery currently on board with plans for repeat attempt at possible PEG tube insertion at a later stage; patient has an NG tube for nutrition Vital signs are reviewed with temperature 99.5, pulse 87, respiration 38 and blood pressure 168/90; lab review shows to be preceded 11.4, hemoglobin 9.0, hematocrit 27.8, sodium 135, potassium 4.8, BUN/creatinine of 25/1.17 08/21/2021 Patient is seen and evaluated. Patient's discussed nursing staff. Patient currently has a tracheostomy which is dry, clean, and intact. Patient suffers from COVID19 pneumonia complicated by ARDS and prolonged respiratory failure. Current issue at hands remains the patient's respiratory failure. He is taken off paralytics and now on combination of drugs in order to manage his sedation. Current medication regimen includes propofol, fentanyl, precedex. Patient's inflammatory markers have trended down specifically LDH of 728 and CRP down to 4.8. D-Dimer has also trended down to 4.1. Patient is currently on enteral feeding for nutrition. This morning tube feeds were held in preparation for PEG tube insertion. No other major changes or significant events in the past 24 hours. 08/22/2021 Patient is seen and evaluated . Patient's case discussed with the nursing staff. Patient remains in the ICU and on the mechanical ventilator. Patient has been having difficulty coming off sedation due to an acute hypertensive reaction. Patient was placed on Cleviprex drip, labetolol drip, Versed; both which were unsuccessful. Due to this patient has been placed on a higher dose of sedation. Patient currently on Precedex, Propofol, and Fentanyl. Patient's blood pressure is being well-controlled on a combination of drugs. Patient was taken off IV heparin this morning. The patient is scheduled for bedside PEG tube insertion ; current enteral feeding is on hold. The chest x-ray showed diffuse breath and pulmonary infiltrates consistent with COVID19 pneumoniaARDS. Patient is on decadron. Patient is afebrile. On examination, patient has slight edema in the upper extremities bilaterally, less in the lower extremities. He was receiving feeding through his an NG tube, currently tube feeds are on hold. Patient is no distress and there seems to be no major changes from yesterday. 08/23/2021 This patient has been seen for follow-up and evaluated. Sedation is now being tapered off. Patient is no responsive to simple commands and opens his eyes. However, patient is still drowsy and lethargic. Patient experiences weakness in all four extremities. Patient is still on propfol and fentanyl and precedex. Patient was also started on seroquel twice a day. Patient remains on mechanical ventilation. Patient's pulse ox is around 90%. Chest X ray continues to show diffuse bilateral pulmonary infiltrates that are consistent with malignancy related pneumonia and ARDS. Patient continues with enteral feeding through the NG tube. Patient is hemodynamically stable with normal BP. On physical examination it is noted that the patient is edematous in all four extremities. Patient was given a dose of Lasix yesterday and remains in positive fluid balance. Lasix will be restarted today. Patient continues to be on IV heparin in regards to his history with PE. Patient's renal function is normal. His WBC count is 5.4 with a HBG level of 8.5. Patisidneyn remains on Decadron with his BP being controlled with amlopdipine, hydralazine, and metropolol. IV fluids are at KVO, as well. Continue ICU management and supportive care. Objective - Vital Signs Vital signs: Vital Signs Temp 98.6 F 08/23/21 08:00 Pulse 114 H 08/23/21 11:00 Resp 28 H 08/23/21 11:00 BP 163/116 08/23/21 10:00 Pulse Ox 90 L 08/23/21 11:00 Intake & Output 08/22/21 08/23/21 08/23/21 18:59 06:59 18:59 Intake Total 1409.596 0307.481 783.133 Output Total 4080 1420 1645 Balance -2786.017 1451.481 -861.867 Weight 120.6 kg 120.6 kg Intake: IV 276 276 115 Sodium Chloride 0.9% 1, 240 240 100 000 ml @ 20 mls/hr IV . Q24H [facility] Rx#:[id number] pressure bag .9 36 36 15 Intake, IV Titration 7481.974 3649.481 490.133 Amount Dexmedetomidine/0.9% NaCl 100 (Pmx) 400 mcg In Empty Bag 1 bag @ 0.2 MCG/KG/HR 6 mls/hr IV .[id number] [facility] Rx#:[id number] Dexmedetomidine/0.9% NaCl 295.564 100.000 (Pmx) 400 mcg In Empty Bag 1 bag @ 0.7 MCG/KG/HR 21.158 mls/hr IV .Q4H44M [facility] Rx#:[id number] Heparin Sod,Pork in 0.45% 70.288 324.197 NaCl 25,000 unit In 0.45 % NaCl 1 250ml.bag @ 8.19 UNITS/KG/HR 10 mls/hr IV .Q24H [facility] Rx#:[id number] Midazolam HCl 50 mg In 37.283 Sodium Chloride 0.9% 40 ml @ 1 MG/HR 1 mls/hr IV .Q24H [facility] Rx#:[id number] fentaNYL (PF) 2,500 mcg 252.850 In Sodium Chloride 0.9% 200 ml @ 0.5 MCG/KG/HR 6. 577 mls/hr IV .Q24H [facility] Rx#:[id number] fentaNYL (PF). 2,500 mcg 500 1250 In Sodium Chloride 0.9% 200 ml @ 0.5 MCG/KG/HR 6. 577 mls/hr IV .Q24H [facility] Rx#:[id number] propofoL 1,000 mg In 347.695 290.720 100.000 Empty Bag 1 bag @ Titrate IV .Q0M [facility] Rx#: [id number] Tube Feeding 255 58 Other 180 120 Output: Urine 4080 1420 1645 Other: Voiding Method Indwelling Catheter Indwelling Catheter Indwelling Catheter ABP, PAP, CO, CI - Last Documented Arterial Blood Pressure 147/77 - Exam GENERAL: The patient is alert and oriented x3, not in any acute distress. Well developed, well nourished. HEENT: Pupils are round and equally reacting to light. EOMI. No scleral icterus. No conjunctival pallor. Normocephalic, atraumatic. No pharyngeal erythema. No thyromegaly. CARDIOVASCULAR: S1 and S2 present. No murmurs, rubs, or gallops. -PULMONARY: Chest is clear to auscultation, no wheezing bilateral crepitation, tachypnea ABDOMEN: Soft, nontender, nondistended, normoactive bowel sounds. No palpable organomegaly. MUSCULOSKELETAL: No joint swelling or deformity. EXTREMITIES: No cyanosis, clubbing, or pedal edema. NEUROLOGICAL: Gross neurological examination did not reveal any focal deficits. SKIN: No rashes. No petechiae - Labs CBC & Chem 7: 08/23/21 04:00 08/23/21 12:57 Labs: Abnormal Lab Results - Last 24 Hours (Table) 08/22/21 08/23/21 08/23/21 Range/Units 22:00 04:00 04:00 RBC 2.93 L (4.30-5.90) m/uL Hgb 8.5 L (13.0-17.5) gm/dL Hct 28.5 L (39.0-53.0) % MCHC 29.8 L (31.0-37.0) g/dL RDW 19.7 H (11.5-15.5) % APTT 41.9 H (22.0-30.0) sec ABG pO2 (83-108) mmHg ABG HCO3 (21-25) mmol/L ABG Total CO2 (19-24) mmol/L ABG O2 Saturation (94-97) % BUN 22 H (9-20) mg/dL POC Glucose (mg/dL) (75-99) mg/dL Total Protein 5.3 L (6.3-8.2) g/dL Albumin 2.6 L (3.5-5.0) g/dL 08/23/21 08/23/21 08/23/21 Range/Units 04:00 05:09 05:55 RBC (4.30-5.90) m/uL Hgb (13.0-17.5) gm/dL Hct (39.0-53.0) % MCHC (31.0-37.0) g/dL RDW (11.5-15.5) % APTT 67.2 H (22.0-30.0) sec ABG pO2 68 L (83-108) mmHg ABG HCO3 27 H (21-25) mmol/L ABG Total CO2 28 H (19-24) mmol/L ABG O2 Saturation 93.3 L (94-97) % BUN (9-20) mg/dL POC Glucose (mg/dL) 69 L (75-99) mg/dL Total Protein (6.3-8.2) g/dL Albumin (3.5-5.0) g/dL 08/23/21 08/23/21 Range/Units 05:58 06:49 RBC (4.30-5.90) m/uL Hgb (13.0-17.5) gm/dL Hct (39.0-53.0) % MCHC (31.0-37.0) g/dL RDW (11.5-15.5) % APTT (22.0-30.0) sec ABG pO2 (83-108) mmHg ABG HCO3 (21-25) mmol/L ABG Total CO2 (19-24) mmol/L ABG O2 Saturation (94-97) % BUN (9-20) mg/dL POC Glucose (mg/dL) 63 L 111 H (75-99) mg/dL Total Protein (6.3-8.2) g/dL Albumin (3.5-5.0) g/dL
[2021-08-24 00:03] LABS: Glucose,Whole Blood 86 mg/dL (75-99)
[2021-08-24 00:58] LABS: Glucose,Whole Blood 78 mg/dL (75-99)
[2021-08-24] MEDS: INSULIN ASPART (NovoLOG) 100 UNIT/ML VIAL SQ SCH ×4 (01:09→18:02)
[2021-08-24] MEDS: MAGNESIUM SULFATE-D5W PMX 1 GM in DEXTROSE/WATER 1 100ML.BAG IVPB SCH (01:10)
[2021-08-24] MEDS: fentaNYL (PF) 2,500 MCG in SODIUM CHLORIDE 0.9% 200 ML IV SCH ×2 (02:58→16:39)
[2021-08-24 04:10] LABS: Anisocytosis Slight; Basophils % (A) 0 %; Eosinophils # (A) 0.2 k/uL (0-0.7); Eosinophils % (A) 3 %; HCT 31.1 % (39.0-53.0); HGB 9.5 gm/dL (13.0-17.5); Hypochromasia Marked; Lymphocytes # (A) 0.7 k/uL (1.0-4.8); Lymphocytes % (A) 16 %; MCHC 30.6 g/dL (31.0-37.0); MCV 94.9 fL (80.0-100.0); Macrocytosis Slight; Mean Platelet Volume 9.4; Monocytes # (A) 0.3 k/uL (0-1.0); Monocytes % (A) 7 %; Neutrophils # (A) 3.2 k/uL (1.3-7.7); Neutrophils % (A) 72 %; Platelet Count 227 k/uL (150-450); Poikilocytosis Slight; RBC 3.28 m/uL (4.30-5.90); RDW 19.5 % (11.5-15.5); WBC 4.5 k/uL (3.8-10.6)
[2021-08-24 04:58] LABS: African American GFR (CKD) >90 (>60 ml/min/1.73 sqM); Anion Gap 7 mmol/L; Blood Urea Nitrogen 24 mg/dL (9-20); Calcium 9.2 mg/dL (8.4-10.2); Carbon Dioxide 28 mmol/L (22-30); Chloride 102 mmol/L (98-107); Glucose 98 mg/dL (74-99); Magnesium 2.1 mg/dL (1.6-2.3); Non-African American GFR(CKD) >90 (>60 ml/min/1.73 sqM); Potassium 3.6 mmol/L (3.5-5.1); Sodium 137 mmol/L (137-145)
[2021-08-24 05:29] LABS: ABG Base Excess 5.5 mmol/L; ABG HCO3 29 mmol/L (21-25); ABG Oxygen Saturation 94.6 % (94-97); ABG PCO2 42 mmHg (35-45); ABG PH 7.45 (7.35-7.45); ABG PO2 68 mmHg (83-108); ABG TCO2 31 mmol/L (19-24); Allen Test Performed? Yes
[2021-08-24 05:43] LABS: Glucose,Whole Blood 86 mg/dL (75-99)
[2021-08-24] MEDS ORDERED: POTASSIUM BICARBONATE/CIT AC 20 MEQ TABLET.EFF NG-TUBE SCH (06:00)
--- NOTE | 2021-08-24 07:11 | XR ---
EXAMINATION TYPE: XR chest 1V portable DATE OF EXAM: 08/24/2021 COMPARISON: 08/23/2021 HISTORY: SOB, Follow Up FINDINGS: Indwelling tubes and catheters are unchanged. Persistent reticulonodular infiltrates greatest throughout the left lung. There may be interval progr ession suggested. Stable appearance of the cardio-mediastinal structures at this time. IMPRESSION: 1. Persistent reticulonodular infiltrates greatest throughout the left lung. There may be interval p rogression suggested. Clinical correlation and follow up until resolution is recommended.
[2021-08-24] MEDS: LABETALOL 5 MG/ML VIAL MDV IVP PRN (08:15)
[2021-08-24] MEDS: ALBUTEROL HFA INHALER INHALATION PRN (08:31)
[2021-08-24] MEDS: DEXMEDETOMIDINE/0.9% NACL(PMX) 400 MCG in EMPTY BAG 1 BAG IV SCH ×5 (08:40→22:25)
--- NOTE | 2021-08-24 08:51 | P.PN ---
Subjective Progress Note Date: 08/24/21 31-year-old black male, being seen in follow-up in the intensive care unit as the patient is a case of COVID-19 related pneumonia complicated by prolonged respiratory failure,. He was admitted to the hospital on July 31 with coronavirus associated pneumonia. On August 06, because of worsening hypoxemic respiratory failure, the patient was moved to the ICU and intubated. On August 14, the patient underwent tracheostomy tube placement. A PEG tube was attempted, but could not be performed because of anatomic reasons. On 08/19/2021, the patient remains on the volume assist control mode, rate 38, tidal volume 375, FiO2 50%, PEEP of 15. The patient is currently on fentanyl at 5.5 mcg/kg/h, Nimbex at 4 mcg/kg/m, propofol at 75 mcg/kg/m, Cleveprex is off , Nepro, at 14 mL an hour which is goal. Chest x-ray continues to show diffuse bilateral patchy infiltrates. There is also the presence of the midline tracheostomy tube. The patient has a Bivona #9 tube. The patient remains on steroids and the patient is receiving Decadron 6 mg IV every [address] angiogram that was done on 08/06/2021 showed at least 2 nonobstructing thrombus in the right lung pulmonary artery. No mediastinal lymphadenopathy. There was evidence of groundglass bilateral pulmonary infiltrates consistent with COVID-19 related pneumonia. The Doppler of the lower extremity that was done back then was also negative for DVTs. Most recent d-dimer from 08/16/2021 showed a level of 5.08. Patient remains on IV heparin for now. He was started on metoprolol 25 mg by mouth twice a day and hydralazine 25 mg by mouth 4 times a day, when necessary and Trandate when necessary. Clevidipine drip is being weaned off. The pro-calcitonin levels from 08/18/2021 was 0.25. The highest level of pro-calcitonin was on 08/08/2021 with a level was as high as 5.5 and subsequently leveled off. The patient is still on a combination of antibiotics including Zosyn and Levaquin. All of the cultures of been negative. The chest x-ray showing bilateral pulmonary infiltrates. Tracheostomy tube is in a good location. No other complications. No pneumothorax. No pleural effusion. No consolidation. There is diffuse bilateral pulmonary infiltration. The blood gases from today showing a pH of 7.35 with a pCO2 of 48 and pO2 of 67. This was on FiO2 of 50% with a PEEP of 15. The patient remains on IV heparin. No evidence of any bleeding around the tracheostomy tube. We have opted to keep him on IV heparin rather than long-acting anticoagulation due to bleeding complications. The patient has a left upper extremity PICC line. Patient has a Lees catheter in place. The patient also has an arterial line and a right radial. The inflammatory markers in general were downtrending. 19 2020, I'm seeing the patient for a follow-up. The patient remains intubated on a mechanical ventilator for COVID-19 related pneumonia/ARDS. This morning, he remains and essentially the same ventilator support and settings with a rate of 38, tidal volume of 375, FiO2 of 70% with a PEEP of 15. The patient has a #[address] a tracheostomy tube in [address]. Chest x-ray was not done from today. Yesterday's chest x-ray was noted on the tracheostomy tube was in a good location. In terms of airway pressures, his peak pressures 32, static pressure is 9. The blood gases from today showed a pH of 7.32 with a pCO2 of 52 and pO2 of 60. Nevertheless, the pulse ox on the monitor is around 100%. Based on that, I gradually wean down the FiO2 down to 50% and I dropped the PEEP down to 14. The patient is currently off paralytics. He was taken off paralytics yesterday. At one point he became asynchronous with a mechanical ventilator and he was given Ativan overnight at a total of 2 mg. He is currently on propofol running at 75 mcg/kg per minute. His fentanyl is running at 8.5 mcg/kg/h. He is off Cleviprex. He is also receiving enteral feeding for insertion support with Nepro at the rate of 12 mL an hour. He remains on Decadron 6 mg IV every 12 hours. His anticoagulation was held yesterday bleed. The patient was found to have some occult blood in the stool. Hemoglobin today is stable at 9.0 and we have not witnessed any form of GI bleeding. Based on this, IV heparin will be restarted. D-dimer today's of 4.9. His inflammatory markers showed an LDH of 810 and is coming down compared to earlier values and his CRP level is 4.0. His pro-calcitonin level was low and antibiotics were discontinued. He continues to have a PICC line in his left upper extremity, arterial line in his right radial. Inflammatory markers are downtrending. He has a NG tube in place. General surgeries on the case for a possible PEG tube insertion of a later stage. 08/21/2021, the patient is being seen for a follow-up. Is a case of COVID-19 related pneumonia with ARDS and prolonged respiratory failure and the patient currently has a tracheostomy tube in place and the patient has a number a Bivona tracheostomy tube. For now, the active issue remains his respiratory failure. The patient was taken off the paralytics. We have managed to control his sedation with a combination of drugs including propofol which is running at 65 mcg/kg per minute and his triglyceride level is at 305. He is also on fentanyl are running at 7.5 mcg/kg/h and he is also on Precedex running at 1.3 mcg/kg/h. I think adjustment of the sedation was done based on his hypertensive reaction and synchrony with the mechanical ventilator. Based on this, I suggested using Cleviprex for blood pressure control. I also made some ventilator adjustments to improve his synchrony with the mechanical ventilator. Aspiration. Pressure control mode of mechanical ventilation. Earlier this morning, his blood gases showed a pH of 7.42 with a pCO2 of 44 and pO2 of 69. His peak airway pressure was 33 anesthetic air pressure was 31. In terms of inflammatory markers, the patient's LDH level is down to 728 and his CRP is down to 4.8. His pro- calcitonin level was 0.25. He d-dimer was down to 4.1. He is receiving enteral feeding for nutritional support. He is currently on Nepro at the rate of 40s an hour. Earlier this morning, tube feeds were held in preparation for PEG tube insertion. Otherwise, he is afebrile. No other significant events over the past 24 hours. Tracheostomy site is dry clean and intact. Fluid balance over the past 24 hours is in the order of +930 mL. 08/22/2021, patient is being seen for a follow-up, as the patient remains in the intensive care unit on a mechanical ventilator. For now, he is using a combination of sedative medications as the patient is having difficulties coming off sedation due to acute hypertensive reaction. I tried to put him on Cleviprex drip which made him very much tachycardic and we had to stop the Cleviprex. I also tried him on labetalol drip to control his blood pressure and that was also not successful. Based on that, he was kept on a higher dose of sedation for now and he is currently on a combination of Precedex running at 0.7 mcg/kg/h. The patient is also on propofol running at 30 mcg/kg per minute and the patient is also on fentanyl at 7.5 mcg/kg/h. I attended to put him also on Versed which didn't work as well and the patient was taken of the Versed infusion. This morning, he is calm and comfortable. His blood pressure is being managed a combination of antacid medication and the patient is on a combination of Norvasc 5 mg, metoprolol 25 mg twice a day and the patient is also on hydralazine 50 mg 3 times a day. The patient was taken off the IV heparin this morning. The patient is going to undergo a bedside PEG tube insertion by general surgery. His enterofeeding is currently on hold. He is currently on a pressure control mode of mechanical ventilation. His pressure control is at 60 cm of water with a PEEP of 14 and FiO2 of 50% with a rate of 32. Peak air pressure is 31 cm of water. The blood gas shows a pH of 7.4 with a pCO2 of 44 and pO2 of 83. The chest x-ray showed diffuse breath and pulmonary infiltrates consistent with COVID-19 related pneumoniaARDS. In terms of treatment, the patient is on Decadron and the patient is receiving 4 mg IV every 24 hours. His inflammatory markers continued to be lower and the patient's LDH level is at 729 with a CRP level of 5.5. electrolytes are normal. Pulses normal. D-dimer is at 4.05. Hemoglobin level is at 7.8. He is afebrile. Her net fluid balance over the past 24 hours has been in the order of negative for 60 mL. Overall, he has been a positive fluid balance and he has some increased edema in his upper extremities bilaterally and to lesser extent in lower extr emities. He is on enteral feeding for nutritional support. He was receiving feeding through his an NG tube in the form of Nepro at the rate of 12 mL an hour. Currently tube feeds are on hold. He was having bowel movements 08/23/2021, the patient is being seen in follow-up in the intensive care unit. On today's evaluation, the patient remains off paralytics. Sedation is being weaned off and the patient is opening up his eyes and following simple commands. He is very much drowsiness lethargic yet arousable and he is following simple commands. Extremely weak and all 4 extremities. This morning, his propofol is down to 15 mcg/kg per minute, fentanyl is at 6 mics.Per kilogram per hour and Precedex at 0.7 mcg/mg/h.note that the patient was also started on Seroquel and he is receiving Seroquel at a dose of 50 mg twice a day. He remains on a mechanical ventilator. Is currently on a pressure control mode of mechanical ventilation. His rate is at 32 with a pressure control of 16, FiO2 of 40% and a PEEP of 13. I reviewed her blood gases from today and the patient has a pH of 7.39 with a pCO2 of 45 and pO2 of 68. Degenerating adequate tidal volumes. He is quite stiffness and a mechanical ventilator. No significant desaturation and his current pulse ox is around 90%. Chest x-ray still showing diffuse bilateral pulmonary infiltrates consistent with malignancy related pneumonia/ARDS. The patient has no significant orotracheal secretions. No evidence of any cough leak. He is receiving enteral feeding through an NG tube. Patient is receiving nephrolithiasis of 12 mL an hour. Note that we attempted to insert a PEG tube yesterday and this was again a failed procedure due to technical difficulties. The procedure itself was aborted. Meanwhile, the patient remains hemodynamically stable. His blood pressure is under better control. He has extensive edema in all 4 extremities. He was given a dose of Lasix yesterday and he remains in a positive fluid balance. Lasix will be restarted today. He remains on IV heparin regarding previous history of pulmonary embolism. As far as blood work, his inflammatory markers from today are still pending. LDH from yesterday was 729. Electrodes are normal. Renal function is normal. White cell count is currently at 5.4 with a hemoglobin of 8.5. In terms of his medications, the patient's remains on Decadron 4 mg on a daily basis. Blood pressure control is with a combination of amlodipine, hydralazine and metopr olol. IV fluids are currently at KVO. 23 2020, the patient is being seen for a follow-up. Events from yesterday was noted. I was informed of the patient's was taken off the propofol. As the patient was becoming more awake and alert, he pulled out his NG tube it was very difficult to be inserted back again. He did have a bout of emesis without any clear indication for aspiration. For now, his NG tube is out. He is off the propofol. Is taking fentanyl which is currently running at 1.5 mcg/kg/h and is also on Precedex running at 0.7 mcg/kg per minute. The patient is arousable. He is awake. He is trying to reach using his upper extremities. He follows some simple commands. He remains on a mechanical ventilator, he is currently on a pressure control mode of mechanical ventilation at the rate of 26, pressure control of 14, PEEP was weaned down to 11 and his FiO2 was at 40%. The chest x- ray showed diffuse bilateral pulmonary infiltrates. Tracheostomy tube is in a good location. No evidence of pneumothorax. No evidence of the pneumomediastinum. Blood gas shows a pH of 7.45 with a pCO2 of 42 and pO2 of 63. Nevertheless, another issue is that his Bivona tracheostomy tube cuff is not holding pressure. As such, we'll believe that the cuff is probably disrupted and blowing out. However, despite that, he has no significant leaks around his tracheostomy stoma and he doesn't have any leak around his mouth or nose and the patient is not losing volumes and a mechanical ventilator. In fact his return tidal volumes in the order of 120 mL. As such, I Did tracheostomy tube in place and no attempts to replace the tracheostomy tube was done knowing that this is a fresh tracheostomy tube. Gen. surgery will be informed of this ongoing issue. He is currently off tube feeds. He is hemodynamically stable. His blood pressure is running higher knowing that he hasn't received his morning on a daily hypertensive medication. IV fluids are currently at KVO. He remains on Decadron at a dose of 2 mg by mouth daily. Anticoagulation is in the form of a requested a dose of 5 mg by mouth twice a day. The patient remains on IV Lasix at a dose of 40 mg twice a day and his net fluid balance over the past 24 hours has been in the order of -1.8 L. He is headed towards a negative fluid balance on a daily basis and the patient is having adequate diuresis. Objective - Vital Signs Vital signs: Vital Signs Temp 100.6 F H 08/24/21 04:00 Pulse 120 H 08/24/21 08:00 Resp 23 08/24/21 08:00 BP 136/77 08/24/21 08:00 Pulse Ox 88 L 08/24/21 08:00 Intake & Output 08/23/21 08/24/21 08/24/21 18:59 06:59 18:59 Intake Total 0629.021 9113.310 46 Output Total 2965 2135 150 Balance -1029.664 -854.690 -104 Weight 120.6 kg 115 kg Intake: IV 276 436 46 Magnesium Sulfate-D5w Pmx 200 1 gm In Dextrose/Water 1 100ml.bag @ 100 mls/hr IVPB Q1H [facility] Rx#: [id number] Sodium Chloride 0.9% 1, 240 200 40 000 ml @ 20 mls/hr IV . Q24H [facility] Rx#:[id number] pressure bag .9 36 36 6 Intake, IV Titration 1207.336 304.310 Amount Dexmedetomidine/0.9% NaCl 266.848 54.31 (Pmx) 400 mcg In Empty Bag 1 bag @ 0.7 MCG/KG/HR 21.158 mls/hr IV .Q4H44M [facility] Rx#:[id number] Midazolam HCl 50 mg In 37.283 Sodium Chloride 0.9% 40 ml @ 1 MG/HR 1 mls/hr IV .Q24H [facility] Rx#:[id number] fentaNYL (PF) 2,500 mcg 711.127 250.000 In Sodium Chloride 0.9% 200 ml @ 0.5 MCG/KG/HR 6. 577 mls/hr IV .Q24H [facility] Rx#:[id number] propofoL 1,000 mg In 192.078 Empty Bag 1 bag @ Titrate IV .Q0M [facility] Rx#: [id number] Tube Feeding 212 360 0 Other 240 180 Output: Urine 2965 2135 150 Other: Voiding Method Indwelling Catheter Indwelling Catheter ABP, PAP, CO, CI - Last Documented Arterial Blood Pressure 170/80 - Exam No acute distress, sedated and off paralytic, with a midline tracheostomy tube.the patient is awake and he is opening his eyes spontaneously. He is fo llowing some simple commands. Awake compared to yesterday Head exam was generally normal. There was no scleral icterus or corneal arcus. Mucous membranes were moist. Neck was supple and without jugular venous distension, thyromegaly, or carotid bruits. Carotids were easily palpable bilaterally. There was no adenopathy. The patient is a tracheostomy and a tracheostomy is clean, no evidence of any leaks of the tracheostomy stoma or upper airway. The patient has a disrupted tracheostomy tube cuff which is not holding pressure. Lungs sounds are diminished bilaterally patient has coarse crackles throughout the lung stevens Cardiac exam revealed the PMI to be normally situated and sized. The rhythm was regular and no extrasystoles were noted during several minutes of auscultation. The first and second heart sounds were normal and physiologic splitting of the second heart sound was noted. There were no murmurs, rubs, clicks, or gallops. Abdominal exam revealed normal bowel sounds. The abdomen was soft, non-tender, and without masses, organomegaly, or appreciable enlargement of the abdominal aorta. Examination of the extremities revealed easily palpable radial, femoral and pedal pulses. There was no cyanosis, clubbing or there is +1 pitting edema in all 4 extremities. Examination of the skin revealed no evidence of significant rashes, suspicious appearing nevi or other concerning lesions. Neurologically the patient sedated and off paralytic, profound weakness in all 4 extremities, pupils are equal and reactive to light, arousable and he is following some simple commands.He is moving his upper extremities. In fact he reached out to his NG tube when he removed his NG tube earlier last night. - Labs CBC & Chem 7: 08/24/21 04:00 08/24/21 04:00 Labs: Abnormal Lab Results - Last 24 Hours (Table) 08/23/21 08/23/21 08/24/21 Range/Units 12:56 18:33 04:00 RBC (4.30-5.90) m/uL Hgb (13.0-17.5) gm/dL Hct (39.0-53.0) % MCHC (31.0-37.0) g/dL RDW (11.5-15.5) % Lymphocytes # (1.0-4.8) k/uL ABG pO2 (83-108) mmHg ABG HCO3 (21-25) mmol/L ABG Total CO2 (19-24) mmol/L BUN 24 H (9-20) mg/dL POC Glucose (mg/dL) 101 H 101 H (75-99) mg/dL 08/24/21 08/24/21 Range/Units 04:00 05:24 RBC 3.28 L (4.30-5.90) m/uL Hgb 9.5 L (13.0-17.5) gm/dL Hct 31.1 L (39.0-53.0) % MCHC 30.6 L (31.0-37.0) g/dL RDW 19.5 H (11.5-15.5) % Lymphocytes # 0.7 L (1.0-4.8) k/uL ABG pO2 68 L (83-108) mmHg ABG HCO3 29 H (21-25) mmol/L ABG Total CO2 31 H (19-24) mmol/L BUN (9-20) mg/dL POC Glucose (mg/dL) (75-99) mg/dL Assessment and Plan Plan: 1 Acute hypoxemic respiratory failure secondary to coronavirus associated pneumo gilda, status post intubation and mechanical ventilation on August 06. Status post tracheostomy tube insertion, 08/14/2021. . The patient remains on a mechanical ventilator. The patient is currently on a pressure control mode of mechanical ventilation. Chest x-ray was noted. Blood gases was noted. No major change in the overall chest x-ray findings. Remains on Decadron. He has completed the course of Baricitinib. Decadron is currently at 4 mg. is currently off propofol. The patient is arousing. He is responsive and awake and following commands although at times is quite restless. Probably does have some underlying component of drug induced encephalopathy knowing that the patient has taken excessive amount of drugs and sedation paralytics over the past 2 weeks. For now, he is on a pressure control mode of ventilation. Chest x-ray was noted. Despite the cuff leak, the patient is not losing volumes on a mechanical ventilator. 9. This is a fresh tracheostomy, I decided to keep the same tracheostomy tube in place. Underwent to contact general surgery and informed them of the problem. I would rather have surgery at the bedside of for decided to switch tracheostomy at a later stage. He is on low dose of Decadron. Is improving. He is diuresing.He remains on a negative fluid balance 2 Acute respiratory distress syndrome secondary to COVID-19 related to pneumon ia. Peak and static pressure is improved and the patient is currently on a pressure control mode of mechanical ventilation. 3 Elevated inflammatory marker secondary to coronavirus infection. The in flammatory markers are essentially downtrending 4 Acute/subacute pulmonary embolism. This was identified on a CT angios gram of the chest at the time of admission. Doppler of the lower extremities were negative and the patient remains on Eliquis 5 Elevated liver enzymes secondary to coronavirus infection. 6 Morbid obesity. 7 hypertension on Lopressor and amlodipine and hydralazine for blood pressure control. 8 acute kidney injury, improved 9 anemia, multifactorial, no signs of any acute bleeding 10 enteral feeding for nutritional support and the patient is currently receiving Nepro at 14, off feeding due to loss of the NG tube 11 edema in all 4 extremities, will be started on Lasix. 12 Cuff leak on the tracheostomy tube without any significant respiratory compromise. Plan Continue Precedex and fentanyl for now The Respiratory Rate on a Mechanical Ventilated on the 26, The Pressure Control down to 14 Cm of Water. Drop the PEEP of 10 with an FiO2 of 40% maintenance blood pressure medication and utilize metoprolol dose of 50 mg twice a day, hydralazine as a dose of 75 mg twice a day and Norvasc at a dose of 5 mg twice a day. We'll try again to insert a NG tube for medication use Continue Decadron 2 milligram once a day Lasix 40 mg every 12 hours, for another 24 hours \No plans to replace the tracheostomy tube at this point in time. We'll monitor the return call him and watch for any ongoing leaks Eliquis 5 mg by mouth twice a day Family was updated and will continue to follow and make further recommendations based on his progress. This is a critically care evaluation was done and more than 30 minutes. We'll contact the and informed her of the progress. Time with Patient: Greater than 30
[2021-08-24] MEDS ORDERED: PROPOFOL 10 MG/ML 20 ML VIAL IV ONE ×2 (08:57)
--- NOTE | 2021-08-24 09:28 | XR ---
EXAMINATION TYPE: XR chest 1V portable DATE OF EXAM: 08/24/2021 COMPARISON: Earlier same day HISTORY: Shortness of breath TECHNIQUE: Single frontal view of the chest is obtained. FINDINGS: Motion motion limits evaluation. NG tube and tracheostomy tube appear to be in place. Bilateral infil trates persist unchanged. IMPRESSION: 1. No significant change although the current examination is limited by patient motion.
--- NOTE | 2021-08-24 09:53 | XR ---
EXAMINATION TYPE: XR chest 1V portable DATE OF EXAM: 08/24/2021 COMPARISON: 08/24/2021 HISTORY: Chest pain TECHNIQUE: Single frontal view of the chest is obtained. FINDINGS: NG tube demonstrates its distal tip within the stomach. Tracheostomy tube is in place. PICC line is n oted on the left. Reticulonodular infiltrates are unchanged. The cardiac silhouette size is within normal limits. The osseous structures are intact. IMPRESSION: 1. Stable chest. Appropriate NG tube placement
--- NOTE | 2021-08-24 09:54 | XR ---
EXAMINATION TYPE: XR chest 1V portable DATE OF EXAM: 08/24/2021 COMPARISON: Same day HISTORY: Chest pain TECHNIQUE: Single frontal view of the chest is obtained. FINDINGS: NG tube is appropriately placed. Reticulonodular infiltrates unchanged. Tracheostomy tube and PICC li ne in place. IMPRESSION: 1. NG tube is appropriately placed.
[2021-08-24] MEDS: POTASSIUM CHLORIDE 10 MEQ in WATER FOR INJECTION 1 100ML.BAG IVPB SCH ×2 (10:13→11:49)
[2021-08-24] MEDS: FUROSEMIDE 10 MG/ML 4 ML VIAL IV SCH ×2 (10:14→20:51)
[2021-08-24] MEDS: CHLORHEXIDINE GLUCONATE 15 ML CUP MUCOUS MEM SCH ×2 (10:14→20:52)
[2021-08-24] MEDS: ASCORBIC ACID 500 MG TAB PO SCH (10:14)
[2021-08-24] MEDS: CHOLECALCIFEROL 25 MCG (1000 IU) TABLET PO SCH (10:14)
[2021-08-24] MEDS: APIXABAN 5 MG TAB PO SCH ×2 (10:14→20:51)
[2021-08-24] MEDS: PANTOPRAZOLE 40 MG/10 ML VIAL IVP SCH ×2 (10:14→20:50)
[2021-08-24] MEDS: ZINC SULFATE 220 MG CAP PO SCH (10:15)
[2021-08-24] MEDS: DEXAMETHASONE SOD PHOSPHATE 4 MG/ML 1 ML VIAL IV SCH (10:15)
[2021-08-24] MEDS: SENNOSIDES-DOCUSATE SODIUM 1 EACH TAB PO SCH (10:16)
[2021-08-24] MEDS: amLODIPine 5 MG TAB PO SCH ×2 (10:16→23:29)
[2021-08-24] MEDS: METOPROLOL TARTRATE 50 MG TAB PO SCH ×2 (10:32→20:51)
[2021-08-24] MEDS: QUEtiapine 50 MG TAB PO SCH ×2 (10:33→20:52)
--- NOTE | 2021-08-24 10:56 | P.PN ---
Progress Note - Text Progress Note Date: 08/24/21 The patient is noted to have a cough leak on his tracheostomy tube. He is still exchange and good volumes of air. He was unable to have a PEG tube placed due to significant abdominal distention. The patient slowly weaning off the ventilator. On exam tracheostomy site is clean. We will continue supportive care.
[2021-08-24 11:37] LABS: Glucose,Whole Blood 102 mg/dL (75-99)
[2021-08-24] MEDS: bisacodyL 10 MG SUPP RECTAL SCH (11:49)
[2021-08-24] MEDS: hydrALAZINE HCL 25 MG TAB PO SCH ×3 (14:55→23:24)
[2021-08-24] MEDS: ACETAMINOPHEN TAB 325 MG TAB PO PRN ×2 (16:41→20:51)
[2021-08-24] MEDS: SODIUM CHLORIDE 0.9% 1,000 ML IV SCH (17:54)
[2021-08-24 18:02] LABS: Glucose,Whole Blood 106 mg/dL (75-99)
--- NOTE | 2021-08-24 22:20 | P.PN ---
Subjective Progress Note Date: 08/15/21 Principal diagnosis: Acute hypoxemic respiratory failure secondary to Covid pneumonia This is a pleasant 31 years old -Citizen Of [place] man with no significant past medical history presents with dyspnea which started yesterday associated with fever and coughing. Patient tested positive for covid earlier on Thursday after he felt with fever and cough on Thursday but at that time he was not dyspneic. He denies chest pain or abdominal pain but he has diarrhea on and off. No vomi ting. He is saturating 89% on 6 L oxygen via nasal cannula, afebrile. Tachypneic with a breathing rate at 23. CBC, is unremarkable. INR is normal at 1.0. Sodium is 1:30, creatinine normal at 1.1, glucose 103. AST is mildly elevated 106 and ALT mildly elevated 106. Elevated lactate dehydrogenase 2600 and C-reactive protein 20.3. Cholelithiasis positive EKG shows sinus tachycardia and [address]-T changes Chest x-ray showing bilateral infiltrates 08/01/2021 Patient sitting at bedside using 50 L of oxygen via nonrebreather. Reports slight improvement in his breathing and his chest x-ray showing somewhat improvement in that area should on both sides. He has low-grade fever today at 200. Blood pressure is stable. D-dimer is 1.87. BMP is unremarkable, liver enzymes slightly trending down. LDH slightly down at 2437 and slightly decreased and C-reactive protein 16.7. C BC and pro-calcitonin are pending Sputum and blood culture are still pending He remains on multiple vitamins, Baricitinib, dexamethasone and normal saline at 75 mL/h. Also he is on Lovenox. Norvasc is added for blood pressure control also we will add metoprolol Subjective: 08/05/21 patient still with dyspnea requiring BiPAP most of the time. He is developing fever of 101.7 today. Blood pressure 157/91. He has leukocytosis 19.1.liver enzymes Are the same. LDH elevated 2935 and C- reactive protein 18.2 his still on multiple vitamins, Baricitinib, dexamethasone and normal saline at 50 mL/h. Also he is on Lovenox therapeutic dose after his d-dimer yesterday. 08/06/2021 Patient remains on BiPAP needing higher pressures 14/8 and FiO2 of 100%. Also history of chronic fever around 100 and pro-calcitonin elevated at 0.40. This left leukocytosis around 22, LDH and C-reactive protein still elevated. D- dimer is trending down to 8.5 and CTA of the chest today showing negative for PE but bilateral groundglass opacity. Sputum culture 2 is negative. Urine analysis is negative for infection Today patient SWITCHED to heparin drip. Also he was started on Zosyn. Also dexamethasone 6 mg daily and normal saline at 50 mL per hour. Discontinue Baricitinib per pulmonary 08/07/2021 Patient respiratory status got worse and eventually patient got intubated while he is in the ICU. Pulmonary/critical care team following the patient closely and help with vent management. He has a fever of 100. Breathing rate around 29. Blood pressure is stable. WBC down to 19 K, Patient is acidotic with pH of 7.2, pCO2 of 57 which is low and high pO2 of 99. Chest x-ray showed increasing bilateral infiltrate and left lower lobe pneumonia. Repeat sputum culture is pending. First 2 samples were negative He remains on Zosyn, dexamethasone, normal saline at 50 mL per hour , heparin drip, multiple vitamins 08/08/2021 Patient remains in the ICU in critical condition and generally he is not doing well. I'll intubated and on mechanical ventilation with the pulmonary/critical care team R following closely He is hemodynamically stable, mildly tachycardic. WBC improving down to 15 but also hemoglobin dropped to 11.9 down to 9.8. And while he continued on heparin drip for suspected thrombosis secondary to his Covid infection and high d-dimer will increase his for chronic 40 mg daily and to twice a day. Patient FiO2 was lowered to 70%, he did not tolerate the prone position. He has no fever but tachypneic at 38 Today his creatinine went up 1.0 up to 2.8 with mild hyperkalemia however he is making good urine output with yellow urine in his Lees catheter bag nephrology team were consulted and bicarb drip was started for acidosis with pH of 7.22. He remains on Zosyn, dexamethasone, vitamin C, D and zinc. 08/09/2021 Remains in the ICU in critical condition. He continue on mechanical ventilation with pulmonary/critical care team on the consult. He still significantly tachypneic at 38 and leukocytosis. Possibly just at that time level 18 to 20, prone position was tried but patient could not tolerate it so avoided now. Labs showing improvement leukocytosis 12 K, hemoglobin 9.2, FiO2 lower to 55%. Creatinine improved slightly to 2.2 after starting normal saline at 75 mL/h. Chest x-ray showing the same findings of bilateral pneumonia. Dexamethasone was increased to twice daily today, normal saline 75 mL/h started. Well continued on heparin drip, Zosyn and multiple vitamins 08/10/2021 Patient condition did not change much from yesterday. He remains intubation only FiO2 lower to 55 from 70% and PEEP down to 18. With pulmonary/critical care team following the case closely. This remains tachycardia. No need for pressors. He hasn't been fever for the last 48 hours. D-dimer trending down to 1.7. WBC down to 11.8. Hemoglobin down to 8.9. Inflammatory markers improved to 114 and 19.9.. Creatinine is stable from yesterday at 2.2. Chest x-ray showing similar infiltrate both sides more on the left side. He remains on Zosyn, multiple vitamins, dexamethasone, normal saline, heparin drip. 08/11/2021 Patient remains in the ICU in critical condition. He is currently on mechanical ventilation significantly tachypneic around 38. With the floor at about 60 L/m. He is FiO2 of 60% and PEEP of 20. With pulmonary/critical care team opened and vent management. Labs showing WBC 12.6, hemoglobin slightly trending to 7.8. Lactate dehydrogenase 1245 and C-reactive protein down to 13.6. Creatinine is 2.0 Is on Zosyn, dexamethasone, normal sinus 75, heparin drip. 08/12/2021 Patient is currently in the intensive care unit. Remains on mechanical ventilator due to acute hypoxemic respiratory failure with Covid pneumonia Currently on before meals 375, FiO2 60% and PEEP of 20. Patient is on Nimbex drip and heparin subcu. Patient is also on fentanyl. Laboratory data showed WBC 15 hemoglobin 7.8 hematocrit 26.1 and platelets 433 And d-dimer is 1.68 sodium 140 potassium 5.3 chloride 101 bicarb is 25 BUN 16 creatinine 1.73. The LDH 1160. Chest x-ray showed findings similar to prior exam. Correlate for pneumonia, edema, ARDS. 08/13/2021 Patient is currently in the intensive care unit. Remains on mechanical ventilator. Assist control 375 and FiO2 at 50% and PEEP of 20. Currently being continued on Nimbex and fentanyl drip. Patient is being converted on IV heparin due to pulmonary embolism. Patient is being controlled on antibiotic Levaquin and Zosyn. Patient is scheduled for vacation and PEG tube placement tomorrow. Laboratory data showed WBC 30.0, hemoglobin 9.5 platelets 634 D-dimer 2.68, sodium 140 potassium 5.6 chloride 108 BUN 51 and creatinine 1.61, AST 75 ALT 193 Patient is being continued on dexamethasone 6 mg IV twice a day. Pulmonary and nephrology and general surgery is on board. 08/14/2021 Patient is currently in the MICU on mechanical ventilator. His control with tidal volume 375, FiO2 55%, PEEP of 20. Patient is on Nimbex drip and propofol and fentanyl drip as well as heparin drip due to pulmonary embolism. Patient is scheduled for tracheostomy and PEG tube placement. Remains on antibiotics in the form of Levaquin and Zosyn. Laboratory data showed WBC 17.5 hemoglobin 7.7 and platelets 462 Sodium 139 potassium 5.2 chloride 108 BUN 51 and creatinine 1.77 Albumin 2.7 and total protein 5.5. Tube feedings on hold for scheduled surgical procedure. Pulmonary, nephrology and general surgery is on board. 08/15/2021 Patient is currently in the MICU. Patient had tracheostomy and is currently remains mechanical ventilator. FiO2 55% and PEEP of 20. Patient is also on propofol, Nimbex and fentanyl drip. Also on heparin IV due to pulmonary embolism. NG tube was taken out prior to tracheostomy. Laboratory data showed WBC 15.6 hemoglobin 7.4 platelets 404 and D-dimer 3.76 Sodium 137 potassium 4.9 chloride 105 bicarb is 25 BUN 49 and creatinine 1.59 Repeat chest x-ray today showed diffuse bilateral infiltrates. Patient remains dexamethasone, antibiotics no cough Levaquin and Zosyn. Pulmonary and nephrology and general surgery is on board. Current medications reviewed. Objective - Vital Signs Vital signs: Vital Signs Temp 98.0 F 08/15/21 12:00 Pulse 78 08/15/21 15:00 Resp 38 H 08/15/21 15:00 BP 96/54 08/15/21 15:00 Pulse Ox 95 08/15/21 15:00 Intake & Output 1008/15/21 08/15/21 18:59 06:59 18:59 Intake Total 808.419 845.758 756.802 Output Total 2630 1501 1475 Balance -1821.581 -655.242 -718.198 Weight 128.2 kg 124.4 kg Intake: IV 240 420 310 Levofloxacin 250Mg-D5w 50 Pmx 250 mg In Dextrose/ Water 1 50ml.bag @ 50 mls /hr IVPB Q24H [facility] Rx#: [id number] Piperacillin-Tazobactam 3 200 100 .375 gm In Sodium Chloride 0.9% 100 ml @ 25 mls/hr IVPB Q8H [facility] Rx#: [id number] Sodium Chloride 0.9% 1, 240 220 160 000 ml @ 20 mls/hr IV . Q24H [facility] Rx#:[id number] Intake, IV Titration 568.419 425.758 446.802 Amount Cisatracurium 200 mg In 200 Sodium Chloride 0.9% 180 ml @ 1 MCG/KG/MIN 7.893 mls/hr IV .Q24H [facility] Rx#: [id number] Heparin Sod,Pork in 0.45% 118.419 NaCl 25,000 unit In 0.45 % NaCl 1 250ml.bag @ 17. 485 UNITS/KG/HR 23 mls/hr IV .[id number] [facility] Rx#: [id number] Heparin Sod,Pork in 0.45% 153.012 NaCl 25,000 unit In 0.45 % NaCl 1 250ml.bag @ 18 UNITS/KG/HR 22.392 mls/hr IV .[id number] [facility] Rx#: [id number] Levofloxacin 250Mg-D5w 50 Pmx 250 mg In Dextrose/ Water 1 50ml.bag @ 50 mls /hr IVPB Q24H [facility] Rx#: [id number] fentaNYL (PF). 2,500 mcg 250 3.289 In Sodium Chloride 0.9% 200 ml @ 0.5 MCG/KG/HR 6. 577 mls/hr IV .Q24H [facility] Rx#:[id number] propofoL 1,000 mg In 200 175.758 290.501 Empty Bag 1 bag @ Titrate IV .Q0M [facility] Rx#: [id number] Output: Urine 2625 1501 1475 Estimated Blood Loss 5 Other: Voiding Method Indwelling Catheter Indwelling Catheter Indwelling Catheter ABP, PAP, CO, CI - Last Documented Arterial Blood Pressure 101/56 - Exam - Exam -GENERAL: The patient is intubated and sedated, not in any acute distress. Obese HEENT: Pupils are round and equally reacting to light. EOMI. No scleral icterus. No conjunctival pallor. Normocephalic, atraumatic. No pharyngeal erythema. No thyromegaly. CARDIOVASCULAR: S1 and S2 present. No murmurs, rubs, or gallops. -PULMONARY: Chest is clear to auscultation, no wheezing, tachypnea ABDOMEN: Soft, nontender, nondistended, normoactive bowel sounds. No palpable organomegaly. Bilateral coarse breath sounds. Tracheostomy in place. On mechanical ventilator. MUSCULOSKELETAL: No joint swelling or deformity. EXTREMITIES: No cyanosis, clubbing, or pedal edema. NEUROLOGICAL: Gross neurological examination did not reveal any focal deficits. SKIN: No rashes. No petechiae - Labs CBC & Chem 7: 08/24/21 04:00 08/24/21 04:00 Labs: Abnormal Lab Results - Last 24 Hours (Table) 08/14/21 08/15/21 08/15/21 Range/Units 20:15 04:05 04:05 WBC 15.6 H (3.8-10.6) k/uL RBC 2.61 L (4.30-5.90) m/uL Hgb 7.4 L (13.0-17.5) gm/dL Hct 23.7 L (39.0-53.0) % RDW 17.2 H (11.5-15.5) % Neutrophils # (Manual) 12.90 H (1.3-7.7) k/uL Metamyelocytes # (Man) 0.47 H (0) k/uL Myelocytes # (Manual) 0.16 H (0) k/uL APTT 20.9 L (22.0-30.0) sec D-Dimer 3.76 H (<0.60) mg/L FEU ABG pCO2 (35-45) mmHg ABG pO2 (83-108) mmHg ABG HCO3 (21-25) mmol/L ABG Total CO2 (19-24) mmol/L ABG O2 Saturation (94-97) % BUN (9-20) mg/dL Creatinine (0.66-1.25) mg/dL POC Glucose (mg/dL) 106 H (75-99) mg/dL Ferritin (22.0-322.0) ng/mL ALT (4-49) U/L Lactate Dehydrogenase (313-618) U/L C-Reactive Protein (<1.0) mg/dL Total Protein (6.3-8.2) g/dL Albumin (3.5-5.0) g/dL 08/15/21 08/15/21 08/15/21 Range/Units 04:05 04:06 05:24 WBC (3.8-10.6) k/uL RBC (4.30-5.90) m/uL Hgb (13.0-17.5) gm/dL Hct (39.0-53.0) % RDW (11.5-15.5) % Neutrophils # (Manual) (1.3-7.7) k/uL Metamyelocytes # (Man) (0) k/uL Myelocytes # (Manual) (0) k/uL APTT (22.0-30.0) sec D-Dimer (<0.60) mg/L FEU ABG pCO2 47 H (35-45) mmHg ABG pO2 70 L (83-108) mmHg ABG HCO3 29 H (21-25) mmol/L ABG Total CO2 30 H (19-24) mmol/L ABG O2 Saturation 93.3 L (94-97) % BUN 49 H (9-20) mg/dL Creatinine 1.59 H (0.66-1.25) mg/dL POC Glucose (mg/dL) 102 H (75-99) mg/dL Ferritin 1190.0 H (22.0-322.0) ng/mL ALT 125 H (4-49) U/L Lactate Dehydrogenase 942 H (313-618) U/L C-Reactive Protein 3.1 H (<1.0) mg/dL Total Protein 5.7 L (6.3-8.2) g/dL Albumin 2.8 L (3.5-5.0) g/dL 08/15/21 08/15/21 Range/Units 12:45 14:12 WBC (3.8-10.6) k/uL RBC (4.30-5.90) m/uL Hgb (13.0-17.5) gm/dL Hct (39.0-53.0) % RDW (11.5-15.5) % Neutrophils # (Manual) (1.3-7.7) k/uL Metamyelocytes # (Man) (0) k/uL Myelocytes # (Manual) (0) k/uL APTT 33.4 H (22.0-30.0) sec D-Dimer (<0.60) mg/L FEU ABG pCO2 (35-45) mmHg ABG pO2 (83-108) mmHg ABG HCO3 (21-25) mmol/L ABG Total CO2 (19-24) mmol/L ABG O2 Saturation (94-97) % BUN (9-20) mg/dL Creatinine (0.66-1.25) mg/dL POC Glucose (mg/dL) 102 H (75-99) mg/dL Ferritin (22.0-322.0) ng/mL ALT (4-49) U/L Lactate Dehydrogenase (313-618) U/L C-Reactive Protein (<1.0) mg/dL Total Protein (6.3-8.2) g/dL Albumin (3.5-5.0) g/dL Assessment and Plan Assessment: Acute bilateral Covid pneumonia, with suspected bacterial superinfection mainly in the left lower lobe Acute hypoxic respiratory failure, remains on mechanical ventilation. s/p traheostomy Right lung PE maintained on IV heparin Elevated inflammatory markers Acute kidney injury secondary to ATN with Covid pneumonia Hypertension Hyperkalemia secondary to acute kidney injury Anemia Metabolic acidosis Elevated d-dimer Obesity with BMI of 49.8 Plan: This is a pleasant 31 years old male who presents with bilateral Covid pneumonia and hypoxia. Patient remains on mechanical ventilator..s/p traheostomy. Continue With IV dexamethasone . Continue with vitamin C, vitamin D and zinc. Discontinue Baricitinib . Continue with Zosyn and Levaquin. c/w heparin drip. Continued on normal saline IV. Patient is scheduled for tracheostomy and PEG tube placement today. Pulmonary and nephrology is on board. Monitor creatinine. Pulmonary/critical care team is following. Labs and medication were reviewed. Monitor lytes and vitals. DVT and GI prophylaxis. Further recommendations dep ends on the clinical course of the patient DVT prophylaxis: Heparin drip GI Prophylaxis: Protonix Time with Patient: Greater than 30
[2021-08-24 23:50] LABS: Glucose,Whole Blood 96 mg/dL (75-99)
[2021-08-25 04:27] LABS: African American GFR (CKD) >90 (>60 ml/min/1.73 sqM); Anion Gap 4 mmol/L; Blood Urea Nitrogen 24 mg/dL (9-20); Calcium 8.8 mg/dL (8.4-10.2); Carbon Dioxide 32 mmol/L (22-30); Chloride 101 mmol/L (98-107); Glucose 98 mg/dL (74-99); Non-African American GFR(CKD) >90 (>60 ml/min/1.73 sqM); Potassium 3.5 mmol/L (3.5-5.1); Sodium 137 mmol/L (137-145)
[2021-08-25 04:33] LABS: Anisocytosis Slight; Basophils % (A) 0 %; Eosinophils # (A) 0.2 k/uL (0-0.7); Eosinophils % (A) 5 %; HCT 25.9 % (39.0-53.0); HGB 8.2 gm/dL (13.0-17.5); Hypochromasia Moderate; Lymphocytes # (A) 0.5 k/uL (1.0-4.8); Lymphocytes % (A) 16 %; MCH 29.1 pg (25.0-35.0); MCHC 31.7 g/dL (31.0-37.0); MCV 91.8 fL (80.0-100.0); Mean Platelet Volume 9.1; Monocytes # (A) 0.2 k/uL (0-1.0); Monocytes % (A) 7 %; Neutrophils # (A) 2.3 k/uL (1.3-7.7); Neutrophils % (A) 70 %; Platelet Count 208 k/uL (150-450); Poikilocytosis Slight; RBC 2.83 m/uL (4.30-5.90); RDW 19.5 % (11.5-15.5); WBC 3.4 k/uL (3.8-10.6)
[2021-08-25] MEDS: INSULIN ASPART (NovoLOG) 100 UNIT/ML VIAL SQ SCH ×3 (04:41→18:45)
[2021-08-25] MEDS ORDERED: Potassium Replacement Protocol 1 EACH MISC MISCELLANE PRN (04:41)
[2021-08-25] MEDS: DEXMEDETOMIDINE/0.9% NACL(PMX) 400 MCG in EMPTY BAG 1 BAG IV SCH ×7 (04:42→23:17)
[2021-08-25] MEDS: ACETAMINOPHEN TAB 325 MG TAB PO PRN (05:26)
[2021-08-25] MEDS: POTASSIUM BICARBONATE/CIT AC 20 MEQ TABLET.EFF NG-TUBE SCH ×2 (05:27→06:56)
[2021-08-25 05:39] LABS: ABG Base Excess 9.1 mmol/L; ABG HCO3 32 mmol/L (21-25); ABG Oxygen Saturation 93.5 % (94-97); ABG PCO2 41 mmHg (35-45); ABG PO2 62 mmHg (83-108); ABG TCO2 34 mmol/L (19-24); Allen Test Performed? Yes
--- NOTE | 2021-08-25 07:32 | XR ---
EXAMINATION TYPE: XR chest 1V portable DATE OF EXAM: 08/25/2021 COMPARISON: 08/24/2021 HISTORY: Follow-up infiltrates TECHNIQUE: Single frontal view of the chest is obtained. FINDINGS: Tracheostomy tube and NG tube are unchanged. Reticulonodular infiltrates are stable. The cardiac silhouette size is within normal limits. The osseous structures are intact. IMPRESSION: 1. Stable chest.
[2021-08-25] MEDS: ALBUTEROL HFA INHALER INHALATION PRN ×4 (07:59→21:28)
[2021-08-25] MEDS: PANTOPRAZOLE 40 MG/10 ML VIAL IVP SCH ×2 (08:10→20:34)
[2021-08-25] MEDS: APIXABAN 5 MG TAB PO SCH ×2 (08:11→20:33)
[2021-08-25] MEDS: METOPROLOL TARTRATE 50 MG TAB PO SCH ×2 (08:11→20:34)
[2021-08-25] MEDS: QUEtiapine 50 MG TAB PO SCH ×2 (08:11→20:34)
[2021-08-25] MEDS: CHOLECALCIFEROL 25 MCG (1000 IU) TABLET PO SCH (08:11)
[2021-08-25] MEDS: CHLORHEXIDINE GLUCONATE 15 ML CUP MUCOUS MEM SCH ×2 (08:11→20:34)
[2021-08-25] MEDS: SENNOSIDES-DOCUSATE SODIUM 1 EACH TAB PO SCH (08:11)
[2021-08-25] MEDS: DEXAMETHASONE SOD PHOSPHATE 4 MG/ML 1 ML VIAL IV SCH (08:12)
[2021-08-25] MEDS: ZINC SULFATE 220 MG CAP PO SCH (08:12)
[2021-08-25] MEDS: ASCORBIC ACID 500 MG TAB PO SCH (08:12)
[2021-08-25] MEDS: amLODIPine 5 MG TAB PO SCH ×2 (08:12→20:33)
[2021-08-25] MEDS: bisacodyL 10 MG SUPP RECTAL SCH (08:13)
[2021-08-25] MEDS: hydrALAZINE HCL 25 MG TAB PO SCH ×3 (08:15→22:09)
[2021-08-25] MEDS: FUROSEMIDE 10 MG/ML 4 ML VIAL IV SCH (08:16)
[2021-08-25] MEDS: fentaNYL (PF) 2,500 MCG in SODIUM CHLORIDE 0.9% 200 ML IV SCH (08:18)
--- NOTE | 2021-08-25 09:24 | P.PN ---
Subjective Progress Note Date: 08/25/21 31-year-old black male, being seen in follow-up in the intensive care unit as the patient is a case of COVID-19 related pneumonia complicated by prolonged respiratory failure,. He was admitted to the hospital on July 31 with coronavirus associated pneumonia. On August 06, because of worsening hypoxemic respiratory failure, the patient was moved to the ICU and intubated. On August 14, the patient underwent tracheostomy tube placement. A PEG tube was attempted, but could not be performed because of anatomic reasons. On 08/19/2021, the patient remains on the volume assist control mode, rate 38, tidal volume 375, FiO2 50%, PEEP of 15. The patient is currently on fentanyl at 5.5 mcg/kg/h, Nimbex at 4 mcg/kg/m, propofol at 75 mcg/kg/m, Cleveprex is off , Nepro, at 14 mL an hour which is goal. Chest x-ray continues to show diffuse bilateral patchy infiltrates. There is also the presence of the midline tracheostomy tube. The patient has a Bivona #9 tube. The patient remains on steroids and the patient is receiving Decadron 6 mg IV every [address] angiogram that was done on 08/06/2021 showed at least 2 nonobstructing thrombus in the right lung pulmonary artery. No mediastinal lymphadenopathy. There was evidence of groundglass bilateral pulmonary infiltrates consistent with COVID-19 related pneumonia. The Doppler of the lower extremity that was done back then was also negative for DVTs. Most recent d-dimer from 08/16/2021 showed a level of 5.08. Patient remains on IV heparin for now. He was started on metoprolol 25 mg by mouth twice a day and hydralazine 25 mg by mouth 4 times a day, when necessary and Trandate when necessary. Clevidipine drip is being weaned off. The pro-calcitonin levels from 08/18/2021 was 0.25. The highest level of pro-calcitonin was on 08/08/2021 with a level was as high as 5.5 and subsequently leveled off. The patient is still on a combination of antibiotics including Zosyn and Levaquin. All of the cultures of been negative. The chest x-ray showing bilateral pulmonary infiltrates. Tracheostomy tube is in a good location. No other complications. No pneumothorax. No pleural effusion. No consolidation. There is diffuse bilateral pulmonary infiltration. The blood gases from today showing a pH of 7.35 with a pCO2 of 48 and pO2 of 67. This was on FiO2 of 50% with a PEEP of 15. The patient remains on IV heparin. No evidence of any bleeding around the tracheostomy tube. We have opted to keep him on IV heparin rather than long-acting anticoagulation due to bleeding complications. The patient has a left upper extremity PICC line. Patient has a Lees catheter in place. The patient also has an arterial line and a right radial. The inflammatory markers in general were downtrending. 19 2020, I'm seeing the patient for a follow-up. The patient remains intubated on a mechanical ventilator for COVID-19 related pneumonia/ARDS. This morning, he remains and essentially the same ventilator support and settings with a rate of 38, tidal volume of 375, FiO2 of 70% with a PEEP of 15. The patient has a #[address] trache[address] tube in [address]. Chest x-ray was not done from today. Yesterday's chest x-ray was noted on the tracheostomy tube was in a good location. In terms of airway pressures, his peak pressures 32, static pressure is 9. The blood gases from today showed a pH of 7.32 with a pCO2 of 52 and pO2 of 60. Nevertheless, the pulse ox on the monitor is around 100%. Based on that, I gradually wean down the FiO2 down to 50% and I dropped the PEEP down to 14. The patient is currently off paralytics. He was taken off paralytics yesterday. At one point he became asynchronous with a mechanical ventilator and he was given Ativan overnight at a total of 2 mg. He is currently on propofol running at 75 mcg/kg per minute. His fentanyl is running at 8.5 mcg/kg/h. He is off Cleviprex. He is also receiving enteral feeding for insertion support with Nepro at the rate of 12 mL an hour. He remains on Decadron 6 mg IV every 12 hours. His anticoagulation was held yesterday bleed. The patient was found to have some occult blood in the stool. Hemoglobin today is stable at 9.0 and we have not witnessed any form of GI bleeding. Based on this, IV heparin will be restarted. D-dimer today's of 4.9. His inflammatory markers showed an LDH of 810 and is coming down compared to earlier values and his CRP level is 4.0. His pro-calcitonin level was low and antibiotics were discontinued. He continues to have a PICC line in his left upper extremity, arterial line in his right radial. Inflammatory markers are downtrending. He has a NG tube in place. General surgeries on the case for a possible PEG tube insertion of a later stage. 08/21/2021, the patient is being seen for a follow-up. Is a case of COVID-19 related pneumonia with ARDS and prolonged respiratory failure and the patient currently has a tracheostomy tube in place and the patient has a number a Bivona tracheostomy tube. For now, the active issue remains his respiratory failure. The patient was taken off the paralytics. We have managed to control his sedation with a combination of drugs including propofol which is running at 65 mcg/kg per minute and his triglyceride level is at 305. He is also on fentanyl are running at 7.5 mcg/kg/h and he is also on Precedex running at 1.3 mcg/kg/h. I think adjustment of the sedation was done based on his hypertensive reaction and synchrony with the mechanical ventilator. Based on this, I suggested using Cleviprex for blood pressure control. I also made some ventilator adjustments to improve his synchrony with the mechanical ventilator. Aspiration. Pressure control mode of mechanical ventilation. Earlier this morning, his blood gases showed a pH of 7.42 with a pCO2 of 44 and pO2 of 69. His peak airway pressure was 33 anesthetic air pressure was 31. In terms of inflammatory markers, the patient's LDH level is down to 728 and his CRP is down to 4.8. His pro- calcitonin level was 0.25. He d-dimer was down to 4.1. He is receiving enteral feeding for nutritional support. He is currently on Nepro at the rate of 40s an hour. Earlier this morning, tube feeds were held in preparation for PEG tube insertion. Otherwise, he is afebrile. No other significant events over the past 24 hours. Tracheostomy site is dry clean and intact. Fluid balance over the past 24 hours is in the order of +930 mL. 08/22/2021, patient is being seen for a follow-up, as the patient remains in the intensive care unit on a mechanical ventilator. For now, he is using a combination of sedative medications as the patient is having difficulties coming off sedation due to acute hypertensive reaction. I tried to put him on Cleviprex drip which made him very much tachycardic and we had to stop the Cleviprex. I also tried him on labetalol drip to control his blood pressure and that was also not successful. Based on that, he was kept on a higher dose of sedation for now and he is currently on a combination of Precedex running at 0.7 mcg/kg/h. The patient is also on propofol running at 30 mcg/kg per minute and the patient is also on fentanyl at 7.5 mcg/kg/h. I attended to put him also on Versed which didn't work as well and the patient was taken of the Versed infusion. This morning, he is calm and comfortable. His blood pressure is being managed a combination of antacid medication and the patient is on a combination of Norvasc 5 mg, metoprolol 25 mg twice a day and the patient is also on hydralazine 50 mg 3 times a day. The patient was taken off the IV heparin this morning. The patient is going to undergo a bedside PEG tube insertion by general surgery. His enterofeeding is currently on hold. He is currently on a pressure control mode of mechanical ventilation. His pressure control is at 60 cm of water with a PEEP of 14 and FiO2 of 50% with a rate of 32. Peak air pressure is 31 cm of water. The blood gas shows a pH of 7.4 with a pCO2 of 44 and pO2 of 83. The chest x-ray showed diffuse breath and pulmonary infiltrates consistent with COVID-19 related pneumoniaARDS. In terms of treatment, the patient is on Decadron and the patient is receiving 4 mg IV every 24 hours. His inflammatory markers continued to be lower and the patient's LDH level is at 729 with a CRP level of 5.5. electrolytes are normal. Pulses normal. D-dimer is at 4.05. Hemoglobin level is at 7.8. He is afebrile. Her net fluid balance over the past 24 hours has been in the order of negative for 60 mL. Overall, he has been a positive fluid balance and he has some increased edema in his upper extremities bilaterally and to lesser extent in lower extr emities. He is on enteral feeding for nutritional support. He was receiving feeding through his an NG tube in the form of Nepro at the rate of 12 mL an hour. Currently tube feeds are on hold. He was having bowel movements 08/23/2021, the patient is being seen in follow-up in the intensive care unit. On today's evaluation, the patient remains off paralytics. Sedation is being weaned off and the patient is opening up his eyes and following simple commands. He is very much drowsiness lethargic yet arousable and he is following simple commands. Extremely weak and all 4 extremities. This morning, his propofol is down to 15 mcg/kg per minute, fentanyl is at 6 mics.Per kilogram per hour and Precedex at 0.7 mcg/mg/h.note that the patient was also started on Seroquel and he is receiving Seroquel at a dose of 50 mg twice a day. He remains on a mechanical ventilator. Is currently on a pressure control mode of mechanical ventilation. His rate is at 32 with a pressure control of 16, FiO2 of 40% and a PEEP of 13. I reviewed her blood gases from today and the patient has a pH of 7.39 with a pCO2 of 45 and pO2 of 68. Degenerating adequate tidal volumes. He is quite stiffness and a mechanical ventilator. No significant desaturation and his current pulse ox is around 90%. Chest x-ray still showing diffuse bilateral pulmonary infiltrates consistent with malignancy related pneumonia/ARDS. The patient has no significant orotracheal secretions. No evidence of any cough leak. He is receiving enteral feeding through an NG tube. Patient is receiving nephrolithiasis of 12 mL an hour. Note that we attempted to insert a PEG tube yesterday and this was again a failed procedure due to technical difficulties. The procedure itself was aborted. Meanwhile, the patient remains hemodynamically stable. His blood pressure is under better control. He has extensive edema in all 4 extremities. He was given a dose of Lasix yesterday and he remains in a positive fluid balance. Lasix will be restarted today. He remains on IV heparin regarding previous history of pulmonary embolism. As far as blood work, his inflammatory markers from today are still pending. LDH from yesterday was 729. Electrodes are normal. Renal function is normal. White cell count is currently at 5.4 with a hemoglobin of 8.5. In terms of his medications, the patient's remains on Decadron 4 mg on a daily basis. Blood pressure control is with a combination of amlodipine, hydralazine and metopr olol. IV fluids are currently at KVO. 23 2020, the patient is being seen for a follow-up. Events from yesterday was noted. I was informed of the patient's was taken off the propofol. As the patient was becoming more awake and alert, he pulled out his NG tube it was very difficult to be inserted back again. He did have a bout of emesis without any clear indication for aspiration. For now, his NG tube is out. He is off the propofol. Is taking fentanyl which is currently running at 1.5 mcg/kg/h and is also on Precedex running at 0.7 mcg/kg per minute. The patient is arousable. He is awake. He is trying to reach using his upper extremities. He follows some simple commands. He remains on a mechanical ventilator, he is currently on a pressure control mode of mechanical ventilation at the rate of 26, pressure control of 14, PEEP was weaned down to 11 and his FiO2 was at 40%. The chest x- ray showed diffuse bilateral pulmonary infiltrates. Tracheostomy tube is in a good location. No evidence of pneumothorax. No evidence of the pneumomediastinum. Blood gas shows a pH of 7.45 with a pCO2 of 42 and pO2 of 63. Nevertheless, another issue is that his Bivona tracheostomy tube cuff is not holding pressure. As such, we'll believe that the cuff is probably disrupted and blowing out. However, despite that, he has no significant leaks around his tracheostomy stoma and he doesn't have any leak around his mouth or nose and the patient is not losing volumes and a mechanical ventilator. In fact his return tidal volumes in the order of 120 mL. As such, I Did tracheostomy tube in place and no attempts to replace the tracheostomy tube was done knowing that this is a fresh tracheostomy tube. Gen. surgery will be informed of this ongoing issue. He is currently off tube feeds. He is hemodynamically stable. His blood pressure is running higher knowing that he hasn't received his morning on a daily hypertensive medication. IV fluids are currently at KVO. He remains on Decadron at a dose of 2 mg by mouth daily. Anticoagulation is in the form of a requested a dose of 5 mg by mouth twice a day. The patient remains on IV Lasix at a dose of 40 mg twice a day and his net fluid balance over the past 24 hours has been in the order of -1.8 L. He is headed towards a negative fluid balance on a daily basis and the patient is having adequate diuresis. On the 2020, I'm seeing this patient for a follow-up. I'm pleased to report that the patient is awake and alert and following simple commands. He is weak. He is able to move his arms against gravity. Weakness is more in the lower extremities. Opens eyes spontaneously. His calm and comfortable. No agitation. He is off propofol. Is on fentanyl at 1.25 mcg/kg/h and he is also on Precedex at a dose of 0.7. He remains on a mechanical ventilator. As mentioned earlier, swish and poor pressure control mode of mechanical ventilation and this morning the patient is on a pressure control of 16, PEEP of 10, FiO2 of 40% and a rate of 26. His blood gases from today showed a pH of 7.50 with a pCO2 of 41 and pO2 of 62. He is having some limited amount of rest or secretions. Sputum culture will be sent. Meanwhile, the chest x-ray findings are essentially stable. Tracheostomy tube is in a good location. The Bivona tracheostomy tube cuff is deflated for now. The balloon itself is malfunctioning is not holding any pressure. Nevertheless, we have not seen any significant air leak through his mouth nor around the tracheostomy tube stoma. NG tube is in place. He is receiving enteral feeding for nutritional support. He is on anticoagulation with Eliquis. No bleeding complications. He remains on Decadron at a dose of 10 mg by mouth daily. He is also diuresing with IV Lasix. He is receiving Lasix 40 mg IV every 12 hours. His overall fluid balance over the past 24 hours has been negative and the order of -1.8 L. His weight is also improving. All 4 extremity edema is also improving. Very happy with his progress. His was at the bedside. Arterial line will be removed. Objective - Vital Signs Vital signs: Vital Signs Temp 37.2 F L 08/25/21 08:00 Pulse 77 08/25/21 08:00 Resp 26 H 08/25/21 08:00 BP 127/68 08/25/21 07:00 Pulse Ox 93 L 08/25/21 08:00 Intake & Output 08/24/21 08/25/21 08/25/21 18:59 06:59 18:59 Intake Total 3338.571 6906.916 416 Output Total 2524 2004 110 Balance -1152.303 -993.084 306 Weight 114.6 kg Intake: IV 436 276 46 Potassium Chloride 10 meq 200 In Water For Injection 1 100ml.bag @ 100 mls/hr IVPB Q1H [facility] Rx#: [id number] Sodium Chloride 0.9% 1, 200 240 40 000 ml @ 20 mls/hr IV . Q24H [facility] Rx#:[id number] pressure bag .9 36 36 6 Intake, IV Titration 536.697 195.916 250 Amount Dexmedetomidine/0.9% NaCl 286.697 195.916 (Pmx) 400 mcg In Empty Bag 1 bag @ 0.7 MCG/KG/HR 21.158 mls/hr IV .Q4H44M [facility] Rx#:[id number] fentaNYL (PF) 2,500 mcg 250.000 250 In Sodium Chloride 0.9% 200 ml @ 0.5 MCG/KG/HR 6. 577 mls/hr IV .Q24H [facility] Rx#:[id number] Oral 100 Tube Feeding 240 360 60 Other 60 180 60 Output: Urine 2524 2004 110 Other: Voiding Method Indwelling Catheter Indwelling Catheter Indwelling Catheter ABP, PAP, CO, CI - Last Documented Arterial Blood Pressure 116/69 - Exam No acute distress, sedated and off paralytic, with a midline tracheostomy tube.the patient is awake and he is opening his eyes spontaneously. He is following some simple commands. Awake compared to yesterday Head exam was generally normal. There was no scleral icterus or corneal arcus. Mucous membranes were moist. Neck was supple and without jugular venous distension, thyromegaly, or carotid bruits. Carotids were easily palpable bilaterally. There was no adenopathy. The patient is a tracheostomy and a tracheostomy is clean, no evidence of any leaks of the tracheostomy stoma or upper airway. The patient has a disrupted tracheostomy tube cuff which is not holding pressure. Lungs sounds are diminished bilaterally patient has coarse crackles throughout the lung stevens Cardiac exam revealed the PMI to be normally situated and sized. The rhythm was regular and no extrasystoles were noted during several minutes of auscultation. The first and second heart sounds were normal and physiologic splitting of the second heart sound was noted. There were no murmurs, rubs, clicks, or gallops. Abdominal exam revealed normal bowel sounds. The abdomen was soft, non-tender, and without masses, organomegaly, or appreciable enlargement of the abdominal aorta. Examination of the extremities revealed easily palpable radial, femoral and pedal pulses. There was no cyanosis, clubbing or there is +1 pitting edema in all 4 extremities. Examination of the skin revealed no evidence of significant rashes, suspicious appearing nevi or other concerning lesions. Neurologically the patient sedated and off paralytic, profound weakness in all 4 extremities, pupils are equal and reactive to light, arousable and he is following some simple commands.He is moving his upper extremities. In fact he reached out to his NG tube when he removed his NG tube earlier last night. - Labs CBC & Chem 7: 08/25/21 04:06 08/25/21 04:06 Labs: Abnormal Lab Results - Last 24 Hours (Table) 08/24/21 08/24/21 08/25/21 Range/Units 11:36 18:01 04:06 WBC 3.4 L (3.8-10.6) k/uL RBC 2.83 L (4.30-5.90) m/uL Hgb 8.2 L (13.0-17.5) gm/dL Hct 25.9 L (39.0-53.0) % RDW 19.5 H (11.5-15.5) % Lymphocytes # 0.5 L (1.0-4.8) k/uL ABG pH (7.35-7.45) ABG pO2 (83-108) mmHg ABG HCO3 (21-25) mmol/L ABG Total CO2 (19-24) mmol/L ABG O2 Saturation (94-97) % Carbon Dioxide (22-30) mmol/L BUN (9-20) mg/dL POC Glucose (mg/dL) 102 H 106 H (75-99) mg/dL 08/25/21 08/25/21 Range/Units 04:06 05:35 WBC (3.8-10.6) k/uL RBC (4.30-5.90) m/uL Hgb (13.0-17.5) gm/dL Hct (39.0-53.0) % RDW (11.5-15.5) % Lymphocytes # (1.0-4.8) k/uL ABG pH 7.50 H (7.35-7.45) ABG pO2 62 L (83-108) mmHg ABG HCO3 32 H (21-25) mmol/L ABG Total CO2 34 H (19-24) mmol/L ABG O2 Saturation 93.5 L (94-97) % Carbon Dioxide 32 H (22-30) mmol/L BUN 24 H (9-20) mg/dL POC Glucose (mg/dL) (75-99) mg/dL Assessment and Plan Plan: 1 Acute hypoxemic respiratory failure secondary to coronavirus associated pneumo gilda, status post intubation and mechanical ventilation on August 06. Status post tracheostomy tube insertion, 08/14/2021. . The patient remains on a mechanical ventilator. The patient is currently on a pressure control mode of mechanical ventilation. Chest x-ray was noted. Blood gases was noted. No major change in the overall chest x-ray findings. Remains on Decadron. He has completed the course of Baricitinib. Awake and alert, off paralytics, off propofol, he is on insulin and low dose of Precedex and fentanyl. Chest x-ray was noted. The one a tracheostomy tube in place. Blood gases was noted. He is currently on a pressure control mode of mechanical ventilation. 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 Peak and static pressure is improved and the patient is currently on a pressure control mode of mechanical ventilation. 3 Elevated inflammatory marker secondary to coronavirus infection. The inflammatory markers are essentially downtrending 4 Acute/subacute pulmonary embolism. This was identified on a CT angios gram of the chest at the time of admission. Doppler of the lower extremities were negative and the patient remains on Eliquis 5 Elevated liver enzymes secondary to coronavirus infection. 6 Morbid obesity. 7 hypertension on Lopressor and amlodipine and hydralazine for blood pressure control. 8 acute kidney injury, improved 9 anemia, multifactorial, no signs of any acute bleeding 10 enteral feeding for nutritional support and the patient is currently receiving Nepro at 14, off feeding due to loss of the NG tube 11 edema in all 4 extremities, will be started on Lasix. The patient remains on negative fluid balance 12 Cuff leak on the tracheostomy tube without any significant respiratory compromise. 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 Keep the PEEP at 10 Monitor the tracheostomy tube knowing that the cuff itself has been holding any pressure Keep the NG tube in place for enteral feeding No plans to replace the tracheostomy tube at this point in time. We'll monitor the return call him and watch for any ongoing leaks Eliquis 5 mg by mouth twice a day consulted physical therapy Family was updated and will continue to follow and make further recommendations based on his progress. This is a critically care evaluation was done and more than 30 minutes. We'll contact the and informed her of the progress. Time with Patient: Greater than 30
--- NOTE | 2021-08-25 10:30 | P.PN ---
Progress Note - Text Progress Note Date: 08/25/21 The patient being stable. He is having satisfactory oxygenation of the ventilator. Despite having a broken cuff. I talked to Dr. Ojeda. He is hoping to continue weaning the patient off the ventilator. On exam her vital signs appear stable. Tracheostomy site is clean. We will continue supportive care.
[2021-08-25 11:31] LABS: Glucose,Whole Blood 112 mg/dL (75-99)
[2021-08-25] MEDS: SODIUM CHLORIDE 0.9% 1,000 ML IV SCH (16:17)
[2021-08-25 18:03] LABS: Glucose,Whole Blood 102 mg/dL (75-99)
--- NOTE | 2021-08-25 20:57 | P.PN ---
Subjective Progress Note Date: 08/24/21 Principal diagnosis: COVID-19 bilateral pneumonia Acute hypoxic respiratory failure 31 years old -[place] man with no significant past medical history presents with dyspnea which started yesterday associated with fever and coughing. Patient tested positive for covid earlier on Thursday after he felt with fever and cough on Thursday but at that time he was not dyspneic. He denies chest pain or abdominal pain but he has diarrhea on and off. No vomiting. He is saturating 89% on 6 L oxygen via nasal cannula, afebrile. Tachypneic with a breathing rate at 23. CBC, is unremarkable. INR is normal at 1.0. Sodium is 1:30, creatinine normal at 1.1, glucose 103. AST is mildly elevated 106 and ALT mildly elevated 106. Elevated lactate dehydrogenase 2600 and C-reactive protein 20.3. Cholelithiasis positive EKG shows sinus tachycardia and [address]-T changes Chest x-ray showing bilateral infiltrates 08/03/2021 patient is seen and evaluated ; continues to have difficulty breathing secondary to COVID-19 pneumonia. Earlier this morning at around 4 AM, the patient had a spell where he had an increased cough and in between he was unable to catch his breath and the patient desaturated. At that point, he was placed on BiPAP. He was quite hypoxic and he gradually build himself up and currently is back on 14/7 cm of water with an FiO2 of 90%. He is currently holding his BiPAP mask on his face. He is comfortable. He is also willing to consider to go back on high flow oxygen in addition to 100% on a beta facemask. --He remains on Decadron 6 mg on a daily basis. He remains on Baricitinib 4 mg on a daily basis. He remains on Lovenox 40 mg subcu on a daily basis. Labs are reviewed and reveal white cell count is at 9.8 with hemoglobin of 12.1. His d-dimer from 08/01/2021 was 1.87. Creatinine is at 1.09 with a BUN of 30 and the rest of the electrodes are all within normal limits. He is afebrile. He is tolerating his diet as the patient is able to eat in between different modes of oxygen delivery. He did have a spike of temperature of 11.6 yesterday. He is tachypneic his breathing is labored. Continue BiPAP treatment alternating with high flow oxygen at 6 L with an FiO2 of 90% Will monitor this patient on the medical floor and transferred to the intensive care unit if there is any worsening 08/04/2021 the patient is somewhat better compared to yesterday. - The patient gradually improved since then and currently is on high flow oxygen and 60 L of FiO2 of 90% in addition to 100% nonrebreather facemask; He remains on Decadron 6 mg on a daily basis and addition to Baricitinib 4 mg by mouth rachna; Lovenox and the dose is adjusted to 60 mg subcu every 12 hours because of an elevated d-dimer of 14.3. Meanwhile, his LDH still elevated at 2954 and a CRP still elevated at 13.8. Platelet electrodes are all within normal limits. His white cell count of 15.3 with hemoglobin of 13.4. Chest x- ray from today was reviewed and was compared to the earlier chest x-ray showed improvement in the inspiratory effort and there is also improvement in the right basilar consolidation. However there is still persistent and diffuse breath and pulmonary infiltrates perihilar and lower lobes bilaterally. Patient is awake and alert. No altered mentation. No other new complaints otherwise for now. 08/16/2021 The patient was admitted to the hospital with coronavirus associated pneumonia; moved to the intensive care unit on August 06, and intubated on the same day. He remains on the mechanical ventilator. --On August 14, the patient underwent tracheostomy. The PEG tube was attempted, but was not able to be done. Ventilator settings include the volume assist control mode White count 15.7, hemoglobin 7.5, hematocrit 23.9, platelet count 429,000. D- dimer was 5.08. Sodium 137, potassium 4.7, chlorides 107, CO2 24, anion gap is 6, BUN 41, creatinine 1.30. Albumin is 2.8. C-reactive protein is 3.8. Chest x-ray shows diffuse bilateral infiltrates. No change in chest x-ray compared to prior x-rays. Patient remains in intensive care unit with critical care on board; remains on IV Zosyn and Levaquin; cultures are negative so far; critical coronary recommending to continue with current management at this time 08/17/2021 Patient is seen and evaluated in ICU; remains on the mechanical ventilator; patient underwent tracheostomy. Arterial blood gases show pO2 of 81, pCO2 48, and a pH is 7.36. The patient's on saline at 20 mL an hour, fentanyl at 4 mcg/kg/h, propofol at 75 mcg/kg/m, Nimbex at 3 g kilogram per minute, and tube feedings with Nepro at 14 mL an hour, which is goal. Last night, because of bleeding around the tracheostomy site, patient received 1 unit of packed red blood cells, 1 unit of platelets, and protamine sulfate. lab review revealsWhite count is 15.2, hemoglobin 7.7, hematocrit 24.6, and platelet count 348,000. Sodium 135, potassium 4.7, chlorides 107, CO2 25, anion gap 3, BUN 32, creatinine 1.26. Chest x-ray from today, shows stable bilateral pulmonary infiltrates. patient underwent a trial of discontinuing Nimbex; it was restarted once patient became tachypneic 08/18/2021 Patient is seen and evaluated in ICU; remains intubated and mechanically ventilated; remains sedated - patient underwent tracheostomy tube placement on 08/14/2021. A PEG tube was attempted, but was unsuccessful; surgery on board. - labs are reviewed and reveal a white count of 14.7 in room 8.7 hematocrit 27.5 and a platelet count 349,000. Sodium potassium chloride CO2 all normal. Anion gap 6. BUN 28, creatinine 1.16. Albumin was 3.1. Chest x-ray continues to show diffuse bilateral patchy infiltrates. There is also the presence of the midline tracheostomy tube. Patient remains on labetalol for blood pressure control But intensive care service patient has not been able to tolerate a holiday from Nimbex; remains critically ill 08/19/2021 Patient remains in ICU and remains intubated and mechanically ventilated; remains sedated Patient is evaluated by general surgery to reassess possible PEG tube placement; patient is currently on tube feeding with nephro lab review shows a white blood count of 11.6, hemoglobin 7.6 and platelet count of 294 nephrology on board for acute renal injury, acute tubular necrosis; with creatinine down to 1.17 08/20/2021 Patient remains in ICU; remains intubated for COVID-19 related pneumonia/ARDS; patient clinically remains unchanged in past 24 hours and remains on ventilator support with previous settings; he is status post tracheostomy; PEG tube was attempted and was unsuccessful; general surgery currently on board with plans for repeat attempt at possible PEG tube insertion at a later stage; patient has an NG tube for nutrition Vital signs are reviewed with temperature 99.5, pulse 87, respiration 38 and blood pressure 168/90; lab review shows to be preceded 11.4, hemoglobin 9.0, hematocrit 27.8, sodium 135, potassium 4.8, BUN/creatinine of 25/1.17 08/21/2021 Patient is seen and evaluated. Patient's discussed nursing staff. Patient currently has a tracheostomy which is dry, clean, and intact. Patient suffers from COVID19 pneumonia complicated by ARDS and prolonged respiratory failure. Current issue at hands remains the patient's respiratory failure. He is taken off paralytics and now on combination of drugs in order to manage his sedation. Current medication regimen includes propofol, fentanyl, precedex. Patient's inflammatory markers have trended down specifically LDH of 728 and CRP down to 4.8. D-Dimer has also trended down to 4.1. Patient is currently on enteral feeding for nutrition. This morning tube feeds were held in preparation for PEG tube insertion. No other major changes or significant events in the past 24 hours. 08/22/2021 Patient is seen and evaluated . Patient's case discussed with the nursing staff. Patient remains in the ICU and on the mechanical ventilator. Patient has been having difficulty coming off sedation due to an acute hypertensive reaction. Patient was placed on Cleviprex drip, labetolol drip, Versed; both which were unsuccessful. Due to this patient has been placed on a higher dose of sedation. Patient currently on Precedex, Propofol, and Fentanyl. Patient's blood pressure is being well-controlled on a combination of drugs. Patient was taken off IV heparin this morning. The patient is scheduled for bedside PEG tube insertion ; current enteral feeding is on hold. The chest x-ray showed diffuse breath and pulmonary infiltrates consistent with COVID19 pneumoniaARDS. Patient is on decadron. Patient is afebrile. On examination, patient has slight edema in the upper extremities bilaterally, less in the lower extremities. He was receiving feeding through his an NG tube, currently tube feeds are on hold. Patient is no distress and there seems to be no major changes from yesterday. 08/23/2021 This patient has been seen for follow-up and evaluated. Sedation is now being tapered off. Patient is no responsive to simple commands and opens his eyes. However, patient is still drowsy and lethargic. Patient experiences weakness in all four extremities. Patient is still on propfol and fentanyl and precedex. Patient was also started on seroquel twice a day. Patient remains on mechanical ventilation. Patient's pulse ox is around 90%. Chest X ray continues to show diffuse bilateral pulmonary infiltrates that are consistent with malignancy related pneumonia and ARDS. Patient continues with enteral feeding through the NG tube. Patient is hemodynamically stable with normal BP. On physical examination it is noted that the patient is edematous in all four extremities. Patient was given a dose of Lasix yesterday and remains in positive fluid balance. Lasix will be restarted today. Patient continues to be on IV heparin in regards to his history with PE. Patient's renal function is normal. His WBC count is 5.4 with a HBG level of 8.5. Patietn remains on Decadron with his BP being controlled with amlopdipine, hydralazine, and metropolol. IV fluids are at KVO, as well. Continue ICU management and supportive care. 08/24/2021 This patient is seen and evaluated for follow up. Patient has been taken off propfol and is now become more awake and oriented. Patient pulled out his NG Tube and it remains out as it is very difficult to re-insert. Patient had an epi sode of emesis but no indication of aspiration. Patient is still on fentanyl and precedex. Patient is arousable, awake, and alert; patient is able to follow simple commands. Patient remains on mechanical ventilator. PEEP has been weaned down to 11 and his FiO2 to 40%. Chest X ray continues to show bilateral pulmonary infiltrates. Tracheostomy tube continues to be in a good location. There is no evidence of pneumothorax or pneumomediastinum. Team believes that his [place] tracheostomy tube cuff is blowing out. Despite this, we are not seeing any significant leak around his tracheostomy stoma nor is there any leak around mouth/nose. Still, general surgery has been informed of this issue. Patient is off the feeding tube. Patient is hemodynamically stable. BP has been high, considering patient has not taken his daily HTN medication. IV fluids are currently at KVO. Patient remains on Decadron. Anticoagulation is administered to this patient. Patient remains on IV Lasix. Patient is now heading towards negative fluid balance and patient is now having sufficient diuresis. Objective - Vital Signs Vital signs: Vital Signs Temp 99.9 F H 08/24/21 12:00 Pulse 118 H 08/24/21 13:00 Resp 49 H 08/24/21 13:00 BP 120/92 08/24/21 13:00 Pulse Ox 91 L 08/24/21 13:00 Intake & Output 08/23/21 08/24/21 08/24/21 18:59 06:59 18:59 Intake Total 0948.005 6703.310 748.522 Output Total 2965 2135 1650 Balance -1029.664 -854.690 -901.478 Weight 120.6 kg 115 kg Intake: IV 276 436 321 Magnesium Sulfate-D5w Pmx 200 1 gm In Dextrose/Water 1 100ml.bag @ 100 mls/hr IVPB Q1H [facility] Rx#: [id number] Potassium Chloride 10 meq 200 In Water For Injection 1 100ml.bag @ 100 mls/hr IVPB Q1H [facility] Rx#: [id number] Sodium Chloride 0.9% 1, 240 200 100 000 ml @ 20 mls/hr IV . Q24H [facility] Rx#:[id number] pressure bag .9 36 36 21 Intake, IV Titration 1207.336 304.310 337.522 Amount Dexmedetomidine/0.9% NaCl 266.848 54.31 178.687 (Pmx) 400 mcg In Empty Bag 1 bag @ 0.7 MCG/KG/HR 21.158 mls/hr IV .Q4H44M [facility]ARGARIAT Rx#:[id number] Midazolam HCl 50 mg In 37.283 Sodium Chloride 0.9% 40 ml @ 1 MG/HR 1 mls/hr IV .Q24H [facility] Rx#:[id number] fentaNYL (PF) 2,500 mcg 711.127 250.000 158.835 In Sodium Chloride 0.9% 200 ml @ 0.5 MCG/KG/HR 6. 577 mls/hr IV .Q24H [facility] Rx#:[id number] propofoL 1,000 mg In 192.078 Empty Bag 1 bag @ Titrate IV .Q0M [facility] Rx#: [id number] Tube Feeding 212 360 90 Other 240 180 Output: Urine 2965 2135 1650 Other: Voiding Method Indwelling Catheter Indwelling Catheter Indwelling Catheter ABP, PAP, CO, CI - Last Documented Arterial Blood Pressure 134/66 - Exam GENERAL: The patient is alert and oriented x3, not in any acute distress. Well developed, well nourished. HEENT: Pupils are round and equally reacting to light. EOMI. No scleral icterus. No conjunctival pallor. Normocephalic, atraumatic. No pharyngeal erythema. No thyromegaly. CARDIOVASCULAR: S1 and S2 present. No murmurs, rubs, or gallops. -PULMONARY: Chest is clear to auscultation, no wheezing bilateral crepitation, tachypnea ABDOMEN: Soft, nontender, nondistended, normoactive bowel sounds. No palpable organomegaly. MUSCULOSKELETAL: No joint swelling or deformity. EXTREMITIES: No cyanosis, clubbing, or pedal edema. NEUROLOGICAL: Gross neurological examination did not reveal any focal deficits. SKIN: No rashes. No petechiae - Labs CBC & Chem 7: 08/25/21 04:06 08/25/21 04:06 Labs: Abnormal Lab Results - Last 24 Hours (Table) 08/23/21 08/24/21 08/24/21 Range/Units 18:33 04:00 04:00 RBC 3.28 L (4.30-5.90) m/uL Hgb 9.5 L (13.0-17.5) gm/dL Hct 31.1 L (39.0-53.0) % MCHC 30.6 L (31.0-37.0) g/dL RDW 19.5 H (11.5-15.5) % Lymphocytes # 0.7 L (1.0-4.8) k/uL ABG pO2 (83-108) mmHg ABG HCO3 (21-25) mmol/L ABG Total CO2 (19-24) mmol/L BUN 24 H (9-20) mg/dL POC Glucose (mg/dL) 101 H (75-99) mg/dL 08/24/21 08/24/21 Range/Units 05:24 11:36 RBC (4.30-5.90) m/uL Hgb (13.0-17.5) gm/dL Hct (39.0-53.0) % MCHC (31.0-37.0) g/dL RDW (11.5-15.5) % Lymphocytes # (1.0-4.8) k/uL ABG pO2 68 L (83-108) mmHg ABG HCO3 29 H (21-25) mmol/L ABG Total CO2 31 H (19-24) mmol/L BUN (9-20) mg/dL POC Glucose (mg/dL) 102 H (75-99) mg/dL Assessment and Plan Assessment: Acute bilateral Covid pneumonia Acute hypoxic respiratory failure Elevated inflammatory markers Obesity with BMI of 49.8 Plan: This is a pleasant 31 years old male who presents with bilateral Covid pneumonia and hypoxia. Continue with oxygen as needed Continue With dexamethasone and Lovenox. Continue with vitamin C, vitamin D and zinc c/w baricitinib Pulmonary consult Labs and medication were reviewed.. Continue same treatment. Continue with symptomatic treatment. Resume home medication. Monitor lytes and vitals. DVT and GI prophylaxis. Further recommendations depends on the clinical course of the patient DVT prophylaxis: Subcutaneous Lovenox GI Prophylaxis: Pepcid Prognosis is guarded
--- NOTE | 2021-08-25 21:04 | P.PN ---
Subjective Progress Note Date: 08/25/21 Principal diagnosis: COVID-19 bilateral pneumonia Acute hypoxic respiratory failure 31 years old -[place] man with no significant past medical history presents with dyspnea which started yesterday associated with fever and coughing. Patient tested positive for covid earlier on Thursday after he felt with fever and cough on Thursday but at that time he was not dyspneic. He denies chest pain or abdominal pain but he has diarrhea on and off. No vomiting. He is saturating 89% on 6 L oxygen via nasal cannula, afebrile. Tachypneic with a breathing rate at 23. CBC, is unremarkable. INR is normal at 1.0. Sodium is 1:30, creatinine normal at 1.1, glucose 103. AST is mildly elevated 106 and ALT mildly elevated 106. Elevated lactate dehydrogenase 2600 and C-reactive protein 20.3. Cholelithiasis positive EKG shows sinus tachycardia and [address]-T changes Chest x-ray showing bilateral infiltrates 08/03/2021 patient is seen and evaluated ; continues to have difficulty breathing secondary to COVID-19 pneumonia. Earlier this morning at around 4 AM, the patient had a spell where he had an increased cough and in between he was unable to catch his breath and the patient desaturated. At that point, he was placed on BiPAP. He was quite hypoxic and he gradually build himself up and currently is back on 14/7 cm of water with an FiO2 of 90%. He is currently holding his BiPAP mask on his face. He is comfortable. He is also willing to consider to go back on high flow oxygen in addition to 100% on a beta facemask. --He remains on Decadron 6 mg on a daily basis. He remains on Baricitinib 4 mg on a daily basis. He remains on Lovenox 40 mg subcu on a daily basis. Labs are reviewed and reveal white cell count is at 9.8 with hemoglobin of 12.1. His d-dimer from 08/01/2021 was 1.87. Creatinine is at 1.09 with a BUN of 30 and the rest of the electrodes are all within normal limits. He is afebrile. He is tolerating his diet as the patient is able to eat in between different modes of oxygen delivery. He did have a spike of temperature of 11.6 yesterday. He is tachypneic his breathing is labored. Continue BiPAP treatment alternating with high flow oxygen at 6 L with an FiO2 of 90% Will monitor this patient on the medical floor and transferred to the intensive care unit if there is any worsening 08/04/2021 the patient is somewhat better compared to yesterday. - The patient gradually improved since then and currently is on high flow oxygen and 60 L of FiO2 of 90% in addition to 100% nonrebreather facemask; He remains on Decadron 6 mg on a daily basis and addition to Baricitinib 4 mg by mouth rachna; Lovenox and the dose is adjusted to 60 mg subcu every 12 hours because of an elevated d-dimer of 14.3. Meanwhile, his LDH still elevated at 2954 and a CRP still elevated at 13.8. Platelet electrodes are all within normal limits. His white cell count of 15.3 with hemoglobin of 13.4. Chest x- ray from today was reviewed and was compared to the earlier chest x-ray showed improvement in the inspiratory effort and there is also improvement in the right basilar consolidation. However there is still persistent and diffuse breath and pulmonary infiltrates perihilar and lower lobes bilaterally. Patient is awake and alert. No altered mentation. No other new complaints otherwise for now. 08/16/2021 The patient was admitted to the hospital with coronavirus associated pneumonia; moved to the intensive care unit on August 06, and intubated on the same day. He remains on the mechanical ventilator. --On August 14, the patient underwent tracheostomy. The PEG tube was attempted, but was not able to be done. Ventilator settings include the volume assist control mode White count 15.7, hemoglobin 7.5, hematocrit 23.9, platelet count 429,000. D- dimer was 5.08. Sodium 137, potassium 4.7, chlorides 107, CO2 24, anion gap is 6, BUN 41, creatinine 1.30. Albumin is 2.8. C-reactive protein is 3.8. Chest x-ray shows diffuse bilateral infiltrates. No change in chest x-ray compared to prior x-rays. Patient remains in intensive care unit with critical care on board; remains on IV Zosyn and Levaquin; cultures are negative so far; critical coronary recommending to continue with current management at this time 08/17/2021 Patient is seen and evaluated in ICU; remains on the mechanical ventilator; patient underwent tracheostomy. Arterial blood gases show pO2 of 81, pCO2 48, and a pH is 7.36. The patient's on saline at 20 mL an hour, fentanyl at 4 mcg/kg/h, propofol at 75 mcg/kg/m, Nimbex at 3 g kilogram per minute, and tube feedings with Nepro at 14 mL an hour, which is goal. Last night, because of bleeding around the tracheostomy site, patient received 1 unit of packed red blood cells, 1 unit of platelets, and protamine sulfate. lab review revealsWhite count is 15.2, hemoglobin 7.7, hematocrit 24.6, and platelet count 348,000. Sodium 135, potassium 4.7, chlorides 107, CO2 25, anion gap 3, BUN 32, creatinine 1.26. Chest x-ray from today, shows stable bilateral pulmonary infiltrates. patient underwent a trial of discontinuing Nimbex; it was restarted once patient became tachypneic 08/18/2021 Patient is seen and evaluated in ICU; remains intubated and mechanically ventilated; remains sedated - patient underwent tracheostomy tube placement on 08/14/2021. A PEG tube was attempted, but was unsuccessful; surgery on board. - labs are reviewed and reveal a white count of 14.7 in room 8.7 hematocrit 27.5 and a platelet count 349,000. Sodium potassium chloride CO2 all normal. Anion gap 6. BUN 28, creatinine 1.16. Albumin was 3.1. Chest x-ray continues to show diffuse bilateral patchy infiltrates. There is also the presence of the midline tracheostomy tube. Patient remains on labetalol for blood pressure control But intensive care service patient has not been able to tolerate a holiday from Nimbex; remains critically ill 08/19/2021 Patient remains in ICU and remains intubated and mechanically ventilated; remains sedated Patient is evaluated by general surgery to reassess possible PEG tube placement; patient is currently on tube feeding with nephro lab review shows a white blood count of 11.6, hemoglobin 7.6 and platelet count of 294 nephrology on board for acute renal injury, acute tubular necrosis; with creatinine down to 1.17 08/20/2021 Patient remains in ICU; remains intubated for COVID-19 related pneumonia/ARDS; patient clinically remains unchanged in past 24 hours and remains on ventilator support with previous settings; he is status post tracheostomy; PEG tube was attempted and was unsuccessful; general surgery currently on board with plans for repeat attempt at possible PEG tube insertion at a later stage; patient has an NG tube for nutrition Vital signs are reviewed with temperature 99.5, pulse 87, respiration 38 and blood pressure 168/90; lab review shows to be preceded 11.4, hemoglobin 9.0, hematocrit 27.8, sodium 135, potassium 4.8, BUN/creatinine of 25/1.17 08/21/2021 Patient is seen and evaluated. Patient's discussed nursing staff. Patient currently has a tracheostomy which is dry, clean, and intact. Patient suffers from COVID19 pneumonia complicated by ARDS and prolonged respiratory failure. Current issue at hands remains the patient's respiratory failure. He is taken off paralytics and now on combination of drugs in order to manage his sedation. Current medication regimen includes propofol, fentanyl, precedex. Patient's inflammatory markers have trended down specifically LDH of 728 and CRP down to 4.8. D-Dimer has also trended down to 4.1. Patient is currently on enteral feeding for nutrition. This morning tube feeds were held in preparation for PEG tube insertion. No other major changes or significant events in the past 24 hours. 08/22/2021 Patient is seen and evaluated . Patient's case discussed with the nursing staff. Patient remains in the ICU and on the mechanical ventilator. Patient has been having difficulty coming off sedation due to an acute hypertensive reaction. Patient was placed on Cleviprex drip, labetolol drip, Versed; both which were unsuccessful. Due to this patient has been placed on a higher dose of sedation. Patient currently on Precedex, Propofol, and Fentanyl. Patient's blood pressure is being well-controlled on a combination of drugs. Patient was taken off IV heparin this morning. The patient is scheduled for bedside PEG tube insertion ; current enteral feeding is on hold. The chest x-ray showed diffuse breath and pulmonary infiltrates consistent with COVID19 pneumoniaARDS. Patient is on decadron. Patient is afebrile. On examination, patient has slight edema in the upper extremities bilaterally, less in the lower extremities. He was receiving feeding through his an NG tube, currently tube feeds are on hold. Patient is no distress and there seems to be no major changes from yesterday. 08/23/2021 This patient has been seen for follow-up and evaluated. Sedation is now being tapered off. Patient is no responsive to simple commands and opens his eyes. However, patient is still drowsy and lethargic. Patient experiences weakness in all four extremities. Patient is still on propfol and fentanyl and precedex. Patient was also started on seroquel twice a day. Patient remains on mechanical ventilation. Patient's pulse ox is around 90%. Chest X ray continues to show diffuse bilateral pulmonary infiltrates that are consistent with malignancy related pneumonia and ARDS. Patient continues with enteral feeding through the NG tube. Patient is hemodynamically stable with normal BP. On physical examination it is noted that the patient is edematous in all four extremities. Patient was given a dose of Lasix yesterday and remains in positive fluid balance. Lasix will be restarted today. Patient continues to be on IV heparin in regards to his history with PE. Patient's renal function is normal. His WBC count is 5.4 with a HBG level of 8.5. Patietn remains on Decadron with his BP being controlled with amlopdipine, hydralazine, and metropolol. IV fluids are at KVO, as well. Continue ICU management and supportive care. 08/24/2021 This patient is seen and evaluated for follow up. Patient has been taken off propfol and is now become more awake and oriented. Patient pulled out his NG Tube and it remains out as it is very difficult to re-insert. Patient had an epi sode of emesis but no indication of aspiration. Patient is still on fentanyl and precedex. Patient is arousable, awake, and alert; patient is able to follow simple commands. Patient remains on mechanical ventilator. PEEP has been weaned down to 11 and his FiO2 to 40%. Chest X ray continues to show bilateral pulmonary infiltrates. Tracheostomy tube continues to be in a good location. There is no evidence of pneumothorax or pneumomediastinum. Team believes that his [place] tracheostomy tube cuff is blowing out. Despite this, we are not seeing any significant leak around his tracheostomy stoma nor is there any leak around mouth/nose. Still, general surgery has been informed of this issue. Patient is hemodynamically stable. BP has been high, considering patient has not taken his daily HTN medication. IV fluids are currently at KVO. Patient remains on Decadron. Anticoagulation is administered to this patient. Patient remains on IV Lasix. Patient is now heading towards negative fluid balance and patient is now having sufficient diuresis. 08/25/2021 Patient is seen and evaluated for follow up. Patient is now awake, alert, oriented, and able to follow simple commands. Patient complains of weakness and is now able to do passive movement of upper extremities. Weakness is more pronounced in his lower extremities. Patient is comfortable and seems to be in no acute distress. Patient is not agitated and patient is now taken off propol. Patient is still on fentanly and precedex. Patient remains on mechanical ventilator. Patient has been having slight secretions for which sputum culture will be sent. Chest X ray findings continue to be stable. Tracheostomy tube is still in a good location. The balloon itself is malfunctioning is not holding any pressure, but patient has no significant air leak through mouth nor around the tube stoma. NG tube is still in place. He is receiving enteral feeding for nutritional support. Patient is also on anticoagulation with Eliquis with no bleeding issues or complications. Patient also remains on Decadron and he is diuresing with IV Lasix. As stated previously, his overall fluid balance has been negative. His weight is starting to improve. Edema that was present in all four extremities is also improving. Arterial line has been decided to be removed. Patient has no other major complaints and there seems to be no sig nificant changes or issues compared to yesterday. Objective - Vital Signs Vital signs: Vital Signs Temp 98.8 F 08/25/21 12:00 Pulse 84 08/25/21 14:00 Resp 26 H 08/25/21 14:00 BP 123/65 08/25/21 14:00 Pulse Ox 94 L 08/25/21 14:00 Intake & Output 08/24/21 08/25/21 08/25/21 18:59 06:59 18:59 Intake Total 1943.463 7909.916 956.210 Output Total 5665 2005 1610 Balance -1152.303 -993.084 -653.790 Weight 114.6 kg Intake: IV 436 276 184 Potassium Chloride 10 meq 200 In Water For Injection 1 100ml.bag @ 100 mls/hr IVPB Q1H [facility] Rx#: [id number] Sodium Chloride 0.9% 1, 200 240 160 000 ml @ 20 mls/hr IV . Q24H [facility] Rx#:[id number] pressure bag .9 36 36 24 Intake, IV Titration 536.697 195.916 412.210 Amount Dexmedetomidine/0.9% NaCl 286.697 195.916 100 (Pmx) 400 mcg In Empty Bag 1 bag @ 0.7 MCG/KG/HR 21.158 mls/hr IV .Q4H44M [facility] Rx#:[id number] fentaNYL (PF) 2,500 mcg 250.000 312.210 In Sodium Chloride 0.9% 200 ml @ 0.5 MCG/KG/HR 6. 577 mls/hr IV .Q24H [facility] Rx#:[id number] Oral 100 Tube Feeding 240 360 240 Other 60 180 120 Output: Urine 2525 2005 1610 Other: Voiding Method Indwelling Catheter Indwelling Catheter Indwelling Catheter ABP, PAP, CO, CI - Last Documented Arterial Blood Pressure 120/59 - Exam GENERAL: The patient is alert and oriented x3, not in any acute distress. Well developed, well nourished. HEENT: Pupils are round and equally reacting to light. EOMI. No scleral icterus. No conjunctival pallor. Normocephalic, atraumatic. No pharyngeal erythema. No thyromegaly. CARDIOVASCULAR: S1 and S2 present. No murmurs, rubs, or gallops. -PULMONARY: Chest is clear to auscultation, no wheezing bilateral crepitation, tachypnea ABDOMEN: Soft, nontender, nondistended, normoactive bowel sounds. No palpable organomegaly. MUSCULOSKELETAL: No joint swelling or deformity. EXTREMITIES: No cyanosis, clubbing, or pedal edema. NEUROLOGICAL: Gross neurological examination did not reveal any focal deficits. SKIN: No rashes. No petechiae - Labs CBC & Chem 7: 08/25/21 04:06 08/25/21 04:06 Labs: Abnormal Lab Results - Last 24 Hours (Table) 08/24/21 08/25/21 08/25/21 Range/Units 18:01 04:06 04:06 WBC 3.4 L (3.8-10.6) k/uL RBC 2.83 L (4.30-5.90) m/uL Hgb 8.2 L (13.0-17.5) gm/dL Hct 25.9 L (39.0-53.0) % RDW 19.5 H (11.5-15.5) % Lymphocytes # 0.5 L (1.0-4.8) k/uL ABG pH (7.35-7.45) ABG pO2 (83-108) mmHg ABG HCO3 (21-25) mmol/L ABG Total CO2 (19-24) mmol/L ABG O2 Saturation (94-97) % Carbon Dioxide 32 H (22-30) mmol/L BUN 24 H (9-20) mg/dL POC Glucose (mg/dL) 106 H (75-99) mg/dL 08/25/21 08/25/21 Range/Units 05:35 11:30 WBC (3.8-10.6) k/uL RBC (4.30-5.90) m/uL Hgb (13.0-17.5) gm/dL Hct (39.0-53.0) % RDW (11.5-15.5) % Lymphocytes # (1.0-4.8) k/uL ABG pH 7.50 H (7.35-7.45) ABG pO2 62 L (83-108) mmHg ABG HCO3 32 H (21-25) mmol/L ABG Total CO2 34 H (19-24) mmol/L ABG O2 Saturation 93.5 L (94-97) % Carbon Dioxide (22-30) mmol/L BUN (9-20) mg/dL POC Glucose (mg/dL) 112 H (75-99) mg/dL Assessment and Plan Assessment: Acute bilateral Covid pneumonia Acute hypoxic respiratory failure Elevated inflammatory markers Obesity with BMI of 49.8 Plan: This is a pleasant 31 years old male who presents with bilateral Covid pneumonia and hypoxia. Continue with oxygen as needed Continue With dexamethasone and Lovenox. Continue with vitamin C, vitamin D and zinc c/w baricitinib Pulmonary consult Labs and medication were reviewed.. Continue same treatment. Continue with symptomatic treatment. Resume home medication. Monitor lytes and vitals. DVT and GI prophylaxis. Further recommendations depends on the clinical course of the patient DVT prophylaxis: Subcutaneous Lovenox GI Prophylaxis: Pepcid Prognosis is guarded
[2021-08-25] MEDS: HYDROmorphone 0.5 MG/0.5 ML SYRINGE IVP PRN (23:54)
[2021-08-26 00:21] LABS: Glucose,Whole Blood 93 mg/dL (75-99)
[2021-08-26] MEDS: INSULIN ASPART (NovoLOG) 100 UNIT/ML VIAL SQ SCH ×5 (00:22→23:42)
[2021-08-26] MEDS: DEXMEDETOMIDINE/0.9% NACL(PMX) 400 MCG in EMPTY BAG 1 BAG IV SCH ×5 (03:42→22:28)
[2021-08-26 05:22] LABS: HGB 8.4 gm/dL (13.0-17.5); MCHC 28.9 g/dL (31.0-37.0); RBC 2.99 m/uL (4.30-5.90); WBC 3.8 k/uL (3.8-10.6)
[2021-08-26 05:23] LABS: Anisocytosis Slight; Basophils % (A) 0 %; Eosinophils # (A) 0.2 k/uL (0-0.7); Eosinophils % (A) 6 %; Hypochromasia Marked; Lymphocytes # (A) 0.6 k/uL (1.0-4.8); Lymphocytes % (A) 17 %; Macrocytosis Slight; Mean Platelet Volume 9.1; Monocytes # (A) 0.3 k/uL (0-1.0); Monocytes % (A) 7 %; Neutrophils # (A) 2.6 k/uL (1.3-7.7); Neutrophils % (A) 68 %; Platelet Count 210 k/uL (150-450); RDW 18.7 % (11.5-15.5)
[2021-08-26 05:30] LABS: MCV 96.9 fL (80.0-100.0)
[2021-08-26 05:32] LABS: Allen Test Performed? Yes
[2021-08-26 05:36] LABS: Glucose,Whole Blood 106 mg/dL (75-99)
[2021-08-26 05:44] LABS: ABG HCO3 30 mmol/L (21-25); ABG PCO2 39 mmHg (35-45); ABG PO2 72 mmHg (83-108)
[2021-08-26 05:45] LABS: ABG Base Excess 6.6 mmol/L
[2021-08-26 05:55] LABS: African American GFR (CKD) >90 (>60 ml/min/1.73 sqM); Anion Gap 7 mmol/L; Blood Urea Nitrogen 26 mg/dL (9-20); Carbon Dioxide 29 mmol/L (22-30); Chloride 101 mmol/L (98-107); Glucose 98 mg/dL (74-99); Non-African American GFR(CKD) >90 (>60 ml/min/1.73 sqM); Potassium 3.8 mmol/L (3.5-5.1); Sodium 137 mmol/L (137-145)
[2021-08-26] MEDS ORDERED: Potassium Replacement Protocol 1 EACH MISC MISCELLANE PRN (06:48)
[2021-08-26] MEDS ORDERED: POTASSIUM BICARBONATE/CIT AC 20 MEQ TABLET.EFF NG-TUBE SCH (07:00)
--- NOTE | 2021-08-26 07:13 | XR ---
EXAMINATION TYPE: XR chest 1V portable DATE OF EXAM: 08/26/2021 COMPARISON: 08/25/2021 HISTORY: Shortness of breath TECHNIQUE: Single frontal view of the chest is obtained. FINDINGS: Tracheostomy tube, NG tube and left-sided PICC line remain unchanged. Stable reticulonodular infiltra estrada right upper lobe and throughout the left lung. The cardiac silhouette size is within normal limits. The osseous structures are intact. IMPRESSION: 1. Stable chest
[2021-08-26] MEDS: FUROSEMIDE 10 MG/ML 4 ML VIAL IV SCH (08:28)
[2021-08-26] MEDS: amLODIPine 5 MG TAB PO SCH ×2 (08:29→20:08)
[2021-08-26] MEDS: CHLORHEXIDINE GLUCONATE 15 ML CUP MUCOUS MEM SCH ×2 (08:29→20:07)
[2021-08-26] MEDS: ASCORBIC ACID 500 MG TAB PO SCH (08:29)
[2021-08-26] MEDS: CHOLECALCIFEROL 25 MCG (1000 IU) TABLET PO SCH (08:29)
[2021-08-26] MEDS: ZINC SULFATE 220 MG CAP PO SCH (08:29)
[2021-08-26] MEDS: PANTOPRAZOLE 40 MG/10 ML VIAL IVP SCH ×2 (08:29→20:07)
[2021-08-26] MEDS: APIXABAN 5 MG TAB PO SCH ×2 (08:30→20:08)
[2021-08-26] MEDS: METOPROLOL TARTRATE 50 MG TAB PO SCH ×2 (08:30→20:08)
[2021-08-26] MEDS: QUEtiapine 50 MG TAB PO SCH ×2 (08:30→20:08)
[2021-08-26] MEDS: hydrALAZINE HCL 25 MG TAB PO SCH ×3 (08:30→22:23)
[2021-08-26] MEDS: bisacodyL 10 MG SUPP RECTAL SCH (08:32)
[2021-08-26 11:09] LABS: Appearance,Urine Cloudy (Clear); Bacteria,Urine Rare /hpf; Bilirubin,Urine Negative (Negative); Blood,Urine Trace (Negative); Color,Urine Light Yellow; Glucose,Urine (UA) Negative (Negative); Ketones,Urine Negative (Negative); Leukocyte Esterase,Urine Negative (Negative); Mucus,Urine Rare /hpf; Nitrite,Urine Negative (Negative); PH, Urine 6.5 (5.0-8.0); Protein,Urine Negative (Negative); RBC,Urine 7 /hpf (0-5); Specific Gravity,Urine 1.006 (1.001-1.035); Urobilinogen,Urine <2.0 mg/dL (<2.0); WBC,Urine 1 /hpf (0-5)
[2021-08-26 11:35] LABS: Glucose,Whole Blood 106 mg/dL (75-99)
[2021-08-26] MEDS: ALBUTEROL HFA INHALER INHALATION PRN (11:45)
--- NOTE | 2021-08-26 13:11 | P.PN ---
Subjective Progress Note Date: 08/26/21 CHIEF COMPLAINT: COVID-19 pneumonia HISTORY OF PRESENT ILLNESS: Patient remains in the ICU on mechanical ventilation. He is status post tracheostomy placement on 08/14/21. Patient had 2 attempts for PEG tube placement that have been unsuccessful. He currently has NG tube in place to receive tube feedings. Patient has a broken tracheostomy cuff but his oxygen saturation has been good on the ventilator. Temperature 100.8 last night WBC 3.8 PHYSICAL EXAM: VITAL SIGNS: Reviewed. GENERAL: Well-developed in no acute distress. HEENT: No sclera icterus. Extraocular movements grossly intact. Moist buccal mucosa. Head is atraumatic, normocephalic. Tracheostomy site clean dry and intact ABDOMEN: Soft NEUROLOGIC: sedated ASSESSMENT: 1. Acute hypoxic respiratory failure due to COVID-19 pneumonia with prolonged mechanical intubation. Status post tracheostomy placement 2. Severe protein calorie malnutrition PLAN: -Continue ICU management -Continue supportive care Physician Computer [employer] Markup Clerk note has been reviewed by physician. Signing provider agrees with the documented findings, assessment, and plan of care. Objective - Vital Signs Vital signs: Vital Signs Temp 99.8 F H 08/26/21 12:00 Pulse 82 08/26/21 12:00 Resp 27 H 08/26/21 12:00 BP 122/68 08/26/21 12:00 Pulse Ox 93 L 08/26/21 12:00 Intake & Output 08/25/21 08/26/21 08/26/21 18:59 06:59 18:59 Intake Total 1238.210 514.907 619 Output Total 1810 1140 2260 Balance -571.790 -625.093 -1641 Weight 113.8 kg 113.8 kg Intake: IV 276 243 120 Sodium Chloride 0.9% 1, 240 240 120 000 ml @ 20 mls/hr IV . Q24H [facility] Rx#:[id number] pressure bag .9 36 3 Intake, IV Titration 512.210 241.907 100 Amount Dexmedetomidine/0.9% NaCl 200 241.907 100 (Pmx) 400 mcg In Empty Bag 1 bag @ 0.7 MCG/KG/HR 21.158 mls/hr IV .Q4H44M [facility] Rx#:[id number] fentaNYL (PF) 2,500 mcg 312.210 In Sodium Chloride 0.9% 200 ml @ 0.5 MCG/KG/HR 6. 577 mls/hr IV .Q24H [facility] Rx#:[id number] Tube Feeding 330 30 189 Other 120 210 Output: Urine 1810 1140 2260 Other: Voiding Method Indwelling Catheter Indwelling Catheter Indwelling Catheter ABP, PAP, CO, CI - Last Documented Arterial Blood Pressure 120/59 - Labs CBC & Chem 7: 08/26/21 04:42 08/26/21 04:42 Labs: Abnormal Lab Results - Last 24 Hours (Table) 08/25/21 08/26/21 08/26/21 Range/Units 18:02 04:42 04:42 RBC 2.99 L (4.30-5.90) m/uL Hgb 8.4 L (13.0-17.5) gm/dL Hct 29.0 L (39.0-53.0) % MCHC 28.9 L (31.0-37.0) g/dL RDW 18.7 H (11.5-15.5) % Lymphocytes # 0.6 L (1.0-4.8) k/uL ABG pH (7.35-7.45) ABG pO2 (83-108) mmHg ABG HCO3 (21-25) mmol/L BUN 26 H (9-20) mg/dL POC Glucose (mg/dL) 102 H (75-99) mg/dL Urine Blood (Negative) Urine RBC (0-5) /hpf Urine Bacteria (None) /hpf Urine Mucus (None) /hpf 08/26/21 08/26/21 08/26/21 Range/Units 05:22 05:34 10:10 RBC (4.30-5.90) m/uL Hgb (13.0-17.5) gm/dL Hct (39.0-53.0) % MCHC (31.0-37.0) g/dL RDW (11.5-15.5) % Lymphocytes # (1.0-4.8) k/uL ABG pH 7.50 H (7.35-7.45) ABG pO2 72 L (83-108) mmHg ABG HCO3 30 H (21-25) mmol/L BUN (9-20) mg/dL POC Glucose (mg/dL) 106 H (75-99) mg/dL Urine Blood Trace H (Negative) Urine RBC 7 H (0-5) /hpf Urine Bacteria Rare H (None) /hpf Urine Mucus Rare H (None) /hpf 08/26/21 Range/Units 11:33 RBC (4.30-5.90) m/uL Hgb (13.0-17.5) gm/dL Hct (39.0-53.0) % MCHC (31.0-37.0) g/dL RDW (11.5-15.5) % Lymphocytes # (1.0-4.8) k/uL ABG pH (7.35-7.45) ABG pO2 (83-108) mmHg ABG HCO3 (21-25) mmol/L BUN (9-20) mg/dL POC Glucose (mg/dL) 106 H (75-99) mg/dL Urine Blood (Negative) Urine RBC (0-5) /hpf Urine Bacteria (None) /hpf Urine Mucus (None) /hpf
[2021-08-26] MEDS: SODIUM CHLORIDE 0.9% 1,000 ML IV SCH (14:12)
--- NOTE | 2021-08-26 14:45 | P.PN ---
Subjective Progress Note Date: 08/26/21 Principal diagnosis: Acute hypoxic respiratory failure secondary to COVID-19 pneumonia On 08/25/2021, I'm seeing this patient for a follow-up. I'm pleased to report that the patient is awake and alert and following simple commands. He is weak. He is able to move his arms against gravity. Weakness is more in the lower extremities. Opens eyes spontaneously. His calm and comfortable. No agitation. He is off propofol. Is on fentanyl at 1.25 mcg/kg/h and he is also on Precedex at a dose of 0.7. He remains on a mechanical ventilator. As mentioned earlier, swish and poor pressure control mode of mechanical ventilation and this morning the patient is on a pressure control of 16, PEEP of 10, FiO2 of 40% and a rate of 26. His blood gases from today showed a pH of 7.5 0 with a pCO2 of 41 and pO2 of 62. He is having some limited amount of rest or secretions. Sputum culture will be sent. Meanwhile, the chest x-ray findings are essentially stable. Tracheostomy tube is in a good location. The Bivona tracheostomy tube cuff is deflated for now. The balloon itself is malfunctioning is not holding any pressure. Nevertheless, we have not seen any significant air leak through his mouth nor around the tracheostomy tube stoma. NG tube is in place. He is receiving enteral feeding for nutritional support. He is on anticoagulation with Eliquis. No bleeding complications. He remains on Decadron at a dose of 10 mg by mouth daily. He is also diuresing with IV Lasix. He is receiving Lasix 40 mg IV every 12 hours. His overall fluid balance over the past 24 hours has been negative and the order of -1.8 L. His weight is also improving. All 4 extremity edema is also improving. Very happy with his progress. His was at the bedside. Arterial line will be removed. Reevaluated today on 08/26/21, patient remains in the ICU, intubated and mechanically ventilated. Patient is on pressure control mode of mechanical ventilation, with pressure control of 12, inspiratory time of 0.9, FiO2 is 40%, and PEEP of 10. ABG showed a pO2 of 72 pCO2 of 39 pH of 7.50 patient is on Precedex at 0.5 mcg/kg/h, he is also on IV fluid at KVO, he is not requiring any pressors. Today after evaluating the patient, I recommended switching the patient to pressure support mode of mechanical ventilation with a pressure support of 14, and I recommended that we keep him on a PEEP of 8 and FiO2 was increased to 45%. Patient is receiving Nepro for nutritional support, his peak airway pressure is only 27. He had a temp of 101 last night, presently 99.4. Sputum was sent for cultures. Patient remains on Lasix at 40 mg daily. Chest x-ray continues to show bilateral infiltrates. But significantly improved compared to baseline. Patient is arousable, and he is extremely weak but he is able to follow simple instructions. After placing the patient on pressure sup port, patient seems to be moving good tidal volumes, and his respiratory rate is in the high 20s. Low 30s. Seems to be fairly comfortable with a pressure support mode of mechanical ventilation. A shunt remains on the COVID-19 cocktail. Remains on Precedex. He is also on Seroquel 50 mg twice a day. Protonix 40 mg IV push twice a day. His also on Lopressor 50 mg twice a day. And labetalol as needed patient is also on Eliquis 5 mg twice a day for his history of pulmonary embolism. Objective - Vital Signs Vital signs: Vital Signs Temp 99.8 F H 08/26/21 12:00 Pulse 76 08/26/21 14:00 Resp 24 08/26/21 14:00 BP 132/73 08/26/21 14:00 Pulse Ox 95 08/26/21 14:00 Intake & Output 08/25/21 08/26/21 08/26/21 18:59 06:59 18:59 Intake Total 1238.210 514.907 876 Output Total 1810 1140 2385 Balance -571.790 -625.093 -1509 Weight 113.8 kg 113.8 kg Intake: IV 276 243 160 Sodium Chloride 0.9% 1, 240 240 160 000 ml @ 20 mls/hr IV . Q24H [facility] Rx#:[id number] pressure bag .9 36 3 Intake, IV Titration 512.210 241.907 200 Amount Dexmedetomidine/0.9% NaCl 200 241.907 200 (Pmx) 400 mcg In Empty Bag 1 bag @ 0.7 MCG/KG/HR 21.158 mls/hr IV .Q4H44M [facility] Rx#:[id number] fentaNYL (PF) 2,500 mcg 312.210 In Sodium Chloride 0.9% 200 ml @ 0.5 MCG/KG/HR 6. 577 mls/hr IV .Q24H [facility] Rx#:[id number] Tube Feeding 330 30 306 Other 120 210 Output: Urine 1810 1140 2385 Other: Voiding Method Indwelling Catheter Indwelling Catheter Indwelling Catheter ABP, PAP, CO, CI - Last Documented Arterial Blood Pressure 120/59 - Exam Physical Exam: Revealed 31-year-old -[place] male, on mechanical ventilation, arousable, weak, but he follows simple instructions. Head: Atraumatic, normocephalic. HEENT: Short obese neck. [Neck is supple.] [No neck masses.] [No thyromegaly.] [No JVD.] A colostomy is intact. Chest: [Symmetrical chest expansion, bibasilar crackles persists. Cardiac Exam: Distant S1 and S2, no S3 gallop, no murmur. Abdomen: [Obese, soft, nontender, no megaly, no rebound, no guarding. Extremities: No clubbing, trace of edema, no cyanosis. Neurological Exam: Arousable, follows simple instructions. But is generally weak Psychiatric: Could not be assessed Musculoskeletal: No deformities, generally weak. Skin: No rashes. - Labs CBC & Chem 7: 08/26/21 04:42 08/26/21 04:42 Labs: Abnormal Lab Results - Last 24 Hours (Table) 08/25/21 08/26/21 08/26/21 Range/Units 18:02 04:42 04:42 RBC 2.99 L (4.30-5.90) m/uL Hgb 8.4 L (13.0-17.5) gm/dL Hct 29.0 L (39.0-53.0) % MCHC 28.9 L (31.0-37.0) g/dL RDW 18.7 H (11.5-15.5) % Lymphocytes # 0.6 L (1.0-4.8) k/uL ABG pH (7.35-7.45) ABG pO2 (83-108) mmHg ABG HCO3 (21-25) mmol/L BUN 26 H (9-20) mg/dL POC Glucose (mg/dL) 102 H (75-99) mg/dL Urine Blood (Negative) Urine RBC (0-5) /hpf Urine Bacteria (None) /hpf Urine Mucus (None) /hpf 08/26/21 08/26/21 08/26/21 Range/Units 05:22 05:34 10:10 RBC (4.30-5.90) m/uL Hgb (13.0-17.5) gm/dL Hct (39.0-53.0) % MCHC (31.0-37.0) g/dL RDW (11.5-15.5) % Lymphocytes # (1.0-4.8) k/uL ABG pH 7.50 H (7.35-7.45) ABG pO2 72 L (83-108) mmHg ABG HCO3 30 H (21-25) mmol/L BUN (9-20) mg/dL POC Glucose (mg/dL) 106 H (75-99) mg/dL Urine Blood Trace H (Negative) Urine RBC 7 H (0-5) /hpf Urine Bacteria Rare H (None) /hpf Urine Mucus Rare H (None) /hpf 08/26/21 Range/Units 11:33 RBC (4.30-5.90) m/uL Hgb (13.0-17.5) gm/dL Hct (39.0-53.0) % MCHC (31.0-37.0) g/dL RDW (11.5-15.5) % Lymphocytes # (1.0-4.8) k/uL ABG pH (7.35-7.45) ABG pO2 (83-108) mmHg ABG HCO3 (21-25) mmol/L BUN (9-20) mg/dL POC Glucose (mg/dL) 106 H (75-99) mg/dL Urine Blood (Negative) Urine RBC (0-5) /hpf Urine Bacteria (None) /hpf Urine Mucus (None) /hpf Assessment and Plan Assessment: Impression: Acute hypoxic respiratory failure secondary to COVID-19 pneumonia, intubated on August 06, tracheostomy August 14, on pressure support mode of mechanical ventilation August 26. ARDS secondary to COVID-19 pneumonia Elevated inflammatory markers secondary to COVID-19 pneumonia Acute pulmonary embolism secondary to COVID-19 pneumonia Elevated liver enzymes secondary to COVID-19 pneumonia and infection Morbid obesity, BMI of 43.1. Benign essential hypertension. Acute kidney injury/resolved.. Status post tracheostomy because of failure to wean. 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 Continue Precedex. Continue Decadron Continue Eliquis Monitor tracheostomy and cuff leak. Continue enteral feeding. Physical therapy to evaluate. Continue GI and DVT prophylaxis. Patient remains critically ill, we'll continue to monitor closely. Critical care time is over 30 minutes Time with Patient: Greater than 30
[2021-08-26 17:45] LABS: Glucose,Whole Blood 123 mg/dL (75-99)
[2021-08-26 23:33] LABS: Glucose,Whole Blood 112 mg/dL (75-99)
[2021-08-27] MEDS: DEXMEDETOMIDINE/0.9% NACL(PMX) 400 MCG in EMPTY BAG 1 BAG IV SCH ×3 (03:34→12:43)
[2021-08-27 05:03] LABS: Anisocytosis Slight; Basophils % (A) 1 %; Eosinophils # (A) 0.3 k/uL (0-0.7); Eosinophils % (A) 6 %; HCT 27.3 % (39.0-53.0); HGB 8.1 gm/dL (13.0-17.5); Hypochromasia Marked; Lymphocytes # (A) 0.7 k/uL (1.0-4.8); Lymphocytes % (A) 17 %; MCH 27.7 pg (25.0-35.0); MCHC 29.8 g/dL (31.0-37.0); MCV 93.2 fL (80.0-100.0); Mean Platelet Volume 8.9; Monocytes # (A) 0.3 k/uL (0-1.0); Monocytes % (A) 7 %; Neutrophils # (A) 2.8 k/uL (1.3-7.7); Neutrophils % (A) 68 %; Platelet Count 198 k/uL (150-450); RBC 2.93 m/uL (4.30-5.90); RDW 18.6 % (11.5-15.5); WBC 4.1 k/uL (3.8-10.6)
[2021-08-27 05:10] LABS: Glucose,Whole Blood 99 mg/dL (75-99)
[2021-08-27] MEDS: INSULIN ASPART (NovoLOG) 100 UNIT/ML VIAL SQ SCH ×3 (05:10→18:13)
[2021-08-27 05:41] LABS: African American GFR (CKD) >90 (>60 ml/min/1.73 sqM); Anion Gap 5 mmol/L; Blood Urea Nitrogen 27 mg/dL (9-20); Carbon Dioxide 32 mmol/L (22-30); Chloride 101 mmol/L (98-107); Glucose 104 mg/dL (74-99); Non-African American GFR(CKD) >90 (>60 ml/min/1.73 sqM); Potassium 3.5 mmol/L (3.5-5.1); Sodium 138 mmol/L (137-145)
--- NOTE | 2021-08-27 06:30 | XR ---
EXAMINATION TYPE: XR chest 1V portable DATE OF EXAM: 08/27/2021 CLINICAL HISTORY: Difficulty breathing progress study. TECHNIQUE: Single AP portable upright view of the chest is obtained. COMPARISON: Chest x-ray from one day earlier and older studies. FINDINGS: Stable tracheostomy tube and nasogastric tube. Stable left-sided PICC line Persistent low lung volumes with confluent left lung reticular opacity with more dense consolidation in the lower lung and confluent reticular right upper lung opacity redemonstrated. Cardiac silhouette size stable and upper limits of normal. Osseous structures are intact. IMPRESSION: Low lung volumes with bilateral multifocal and confluent opacities consistent with covid- 19 infection are redemonstrated. No significant change from one day earlier.
[2021-08-27] MEDS: HYDROmorphone 0.5 MG/0.5 ML SYRINGE IVP PRN ×2 (07:36→14:36)
[2021-08-27] MEDS: POTASSIUM BICARBONATE/CIT AC 20 MEQ TABLET.EFF NG-TUBE SCH ×2 (07:39→09:25)
[2021-08-27] MEDS: FUROSEMIDE 10 MG/ML 4 ML VIAL IV SCH (08:06)
[2021-08-27] MEDS: ZINC SULFATE 220 MG CAP PO SCH (08:06)
[2021-08-27] MEDS: PANTOPRAZOLE 40 MG/10 ML VIAL IVP SCH ×2 (08:06→20:44)
[2021-08-27] MEDS: CHOLECALCIFEROL 25 MCG (1000 IU) TABLET PO SCH (08:06)
[2021-08-27] MEDS: METOPROLOL TARTRATE 50 MG TAB PO SCH ×2 (08:07→20:45)
[2021-08-27] MEDS: QUEtiapine 50 MG TAB PO SCH (08:07)
[2021-08-27] MEDS: amLODIPine 5 MG TAB PO SCH ×2 (08:07→20:44)
[2021-08-27] MEDS: APIXABAN 5 MG TAB PO SCH ×2 (08:07→20:44)
[2021-08-27] MEDS: ASCORBIC ACID 500 MG TAB PO SCH (08:07)
[2021-08-27] MEDS: SENNOSIDES-DOCUSATE SODIUM 1 EACH TAB PO SCH (08:08)
[2021-08-27] MEDS: CHLORHEXIDINE GLUCONATE 15 ML CUP MUCOUS MEM SCH ×2 (08:08→20:44)
[2021-08-27] MEDS: bisacodyL 10 MG SUPP RECTAL SCH (08:08)
[2021-08-27] MEDS: ALBUTEROL HFA INHALER INHALATION PRN (08:41)
[2021-08-27] MEDS: hydrALAZINE HCL 25 MG TAB PO SCH ×3 (09:25→20:46)
[2021-08-27 11:27] LABS: Glucose,Whole Blood 104 mg/dL (75-99)
--- NOTE | 2021-08-27 13:30 | P.PN ---
Subjective Progress Note Date: 08/27/21 CHIEF COMPLAINT: COVID-19 pneumonia HISTORY OF PRESENT ILLNESS: Patient remains in the ICU on mechanical ventilation. He is status post tracheostomy placement on 08/14/21. Patient had 2 attempts for PEG tube placement that have been unsuccessful. He currently has NG tube in place to receive tube feedings. Patient has a broken tracheostomy cuff but his oxygen saturation has been good on the ventilator. Temperature 100.3 this morning WBC 4.1 PHYSICAL EXAM: VITAL SIGNS: Reviewed. GENERAL: Well-developed in no acute distress. HEENT: No sclera icterus. Extraocular movements grossly intact. Moist buccal mucosa. Head is atraumatic, normocephalic. Tracheostomy site clean dry and intact ABDOMEN: Soft NEUROLOGIC: sedated ASSESSMENT: 1. Acute hypoxic respiratory failure due to COVID-19 pneumonia with prolonged mechanical intubation. Status post tracheostomy placement 2. Severe protein calorie malnutrition PLAN: -Continue ICU management -Continue supportive care -Continue to monitor tracheostomy cuff Physician Media Assistant note has been reviewed by physician. Signing provider agrees with the documented findings, assessment, and plan of care. Objective - Vital Signs Vital signs: Vital Signs Temp 100.3 F H 08/27/21 08:00 Pulse 85 08/27/21 13:00 Resp 26 H 08/27/21 13:00 BP 128/74 08/27/21 13:00 Pulse Ox 98 08/27/21 13:00 Intake & Output 08/26/21 08/27/21 08/27/21 18:59 06:59 18:59 Intake Total 1272 1007.627 864.743 Output Total 2565 465 2350 Balance -1293 542.627 -1485.257 Weight 113.8 kg 111.7 kg Intake: IV 240 220 120 Sodium Chloride 0.9% 1, 240 220 120 000 ml @ 20 mls/hr IV . Q24H [facility] Rx#:[id number] Intake, IV Titration 300 190.627 192.743 Amount Dexmedetomidine/0.9% NaCl 300 190.627 192.743 (Pmx) 400 mcg In Empty Bag 1 bag @ 0.7 MCG/KG/HR 21.158 mls/hr IV .Q4H44M [facility] Rx#:[id number] Tube Feeding 492 507 312 Other 240 90 240 Output: Urine 2565 465 2350 Other: Voiding Method Indwelling Catheter Indwelling Catheter Indwelling Catheter # Bowel Movements 1 1 ABP, PAP, CO, CI - Last Documented Arterial Blood Pressure 120/59 - Labs CBC & Chem 7: 08/27/21 04:50 08/27/21 04:50 Labs: Abnormal Lab Results - Last 24 Hours (Table) 08/26/21 08/26/21 08/26/21 Range/Units 11:00 17:43 23:31 RBC (4.30-5.90) m/uL Hgb (13.0-17.5) gm/dL Hct (39.0-53.0) % MCHC (31.0-37.0) g/dL RDW (11.5-15.5) % Lymphocytes # (1.0-4.8) k/uL Carbon Dioxide (22-30) mmol/L BUN (9-20) mg/dL Glucose (74-99) mg/dL POC Glucose (mg/dL) 123 H 112 H (75-99) mg/dL Procalcitonin 0.25 H (0.02-0.09) ng/mL 08/27/21 08/27/21 08/27/21 Range/Units 04:50 04:50 11:26 RBC 2.93 L (4.30-5.90) m/uL Hgb 8.1 L (13.0-17.5) gm/dL Hct 27.3 L (39.0-53.0) % MCHC 29.8 L (31.0-37.0) g/dL RDW 18.6 H (11.5-15.5) % Lymphocytes # 0.7 L (1.0-4.8) k/uL Carbon Dioxide 32 H (22-30) mmol/L BUN 27 H (9-20) mg/dL Glucose 104 H (74-99) mg/dL POC Glucose (mg/dL) 104 H (75-99) mg/dL Procalcitonin (0.02-0.09) ng/mL Microbiology - Last 24 Hours (Table) 08/25/21 15:50 Gram Stain - Preliminary Sputum Sputum Culture - Preliminary
--- NOTE | 2021-08-27 14:11 | P.PN ---
Subjective Progress Note Date: 08/27/21 Principal diagnosis: Acute hypoxic respiratory failure secondary to COVID-19 pneumonia On 08/25/2021, I'm seeing this patient for a follow-up. I'm pleased to report that the patient is awake and alert and following simple commands. He is weak. He is able to move his arms against gravity. Weakness is more in the lower extremities. Opens eyes spontaneously. His calm and comfortable. No agitation. He is off propofol. Is on fentanyl at 1.25 mcg/kg/h and he is also on Precedex at a dose of 0.7. He remains on a mechanical ventilator. As mentioned earlier, swish and poor pressure control mode of mechanical ventilation and this morning the patient is on a pressure control of 16, PEEP of 10, FiO2 of 40% and a rate of 26. His blood gases from today showed a pH of 7.5 0 with a pCO2 of 41 and pO2 of 62. He is having some limited amount of rest or secretions. Sputum culture will be sent. Meanwhile, the chest x-ray findings are essentially stable. Tracheostomy tube is in a good location. The Bivona tracheostomy tube cuff is deflated for now. The balloon itself is malfunctioning is not holding any pressure. Nevertheless, we have not seen any significant air leak through his mouth nor around the tracheostomy tube stoma. NG tube is in place. He is receiving enteral feeding for nutritional support. He is on anticoagulation with Eliquis. No bleeding complications. He remains on Decadron at a dose of 10 mg by mouth daily. He is also diuresing with IV Lasix. He is receiving Lasix 40 mg IV every 12 hours. His overall fluid balance over the past 24 hours has been negative and the order of -1.8 L. His weight is also improving. All 4 extremity edema is also improving. Very happy with his progress. His was at the bedside. Arterial line will be removed. Reevaluated today on 08/26/21, patient remains in the ICU, intubated and mechanically ventilated. Patient is on pressure control mode of mechanical ventilation, with pressure control of 12, inspiratory time of 0.9, FiO2 is 40%, and PEEP of 10. ABG showed a pO2 of 72 pCO2 of 39 pH of 7.50 patient is on Precedex at 0.5 mcg/kg/h, he is also on IV fluid at KVO, he is not requiring any pressors. Today after evaluating the patient, I recommended switching the patient to pressure support mode of mechanical ventilation with a pressure support of 14, and I recommended that we keep him on a PEEP of 8 and FiO2 was increased to 45%. Patient is receiving Nepro for nutritional support, his peak airway pressure is only 27. He had a temp of 101 last night, presently 99.4. Sputum was sent for cultures. Patient remains on Lasix at 40 mg daily. Chest x-ray continues to show bilateral infiltrates. But significantly improved compared to baseline. Patient is arousable, and he is extremely weak but he is able to follow simple instructions. After placing the patient on pressure sup port, patient seems to be moving good tidal volumes, and his respiratory rate is in the high 20s. Low 30s. Seems to be fairly comfortable with a pressure support mode of mechanical ventilation. A shunt remains on the COVID-19 cocktail. Remains on Precedex. He is also on Seroquel 50 mg twice a day. Protonix 40 mg IV push twice a day. His also on Lopressor 50 mg twice a day. And labetalol as needed patient is also on Eliquis 5 mg twice a day for his history of pulmonary embolism. Patient was reevaluated today on 08/27/2021, remains in the ICU, intubated and mechanically ventilated. Yesterday the patient tolerated almost 24 hours of pressure support mode of mechanical ventilation with a pressure support of 14. However earlier this morning the patient was noted to be a bit more short of breath, he was placed back on a pressure control mode of mechanical ventilation, and FiO2 of 45%, PEEP of 8, patient is doing well and he seems to be more comfortable. No ABG was done this morning. Chest x-ray continues to bilateral infiltrates. Patient remains on Precedex, not requiring any pressors, not requiring any other form of sedation. Patient apparently developed critical illness Pollyneuromyopathy, and he seems to be steadily improving, and I have recommended physical therapy, today we'll plan to place him back on pressure support of 14 and a PEEP of 8, FiO2 will remain at 45%. Patient remains on anticoagulation therapy for his pulmonary embolism. He remains on tube feeds receiving Nepro at 59 mL per hour. Hemodynamically he is stable. And I'm hoping at least we could give him another trial today of pressure support after resting him for few hours on pressure control mode of mechanical ventilation. Basic metabolic profile is normal today. Count is 4.1 hemoglobin is 8.1. C. diff screening is negative. Chest x-ray is basically about the same, continues to show bilateral infiltrates. Objective - Vital Signs Vital signs: Vital Signs Temp 100.3 F H 08/27/21 08:00 Pulse 85 08/27/21 13:00 Resp 26 H 08/27/21 13:00 BP 128/74 08/27/21 13:00 Pulse Ox 98 08/27/21 13:00 Intake & Output 08/26/21 08/27/21 08/27/21 18:59 06:59 18:59 Intake Total 1272 1007.627 864.743 Output Total 2565 465 2350 Balance -1293 542.627 -1485.257 Weight 113.8 kg 111.7 kg Intake: IV 240 220 120 Sodium Chloride 0.9% 1, 240 220 120 000 ml @ 20 mls/hr IV . Q24H [facility] Rx#:[id number] Intake, IV Titration 300 190.627 192.743 Amount Dexmedetomidine/0.9% NaCl 300 190.627 192.743 (Pmx) 400 mcg In Empty Bag 1 bag @ 0.7 MCG/KG/HR 21.158 mls/hr IV .Q4H44M [facility] Rx#:[id number] Tube Feeding 492 507 312 Other 240 90 240 Output: Urine 2565 465 2350 Other: Voiding Method Indwelling Catheter Indwelling Catheter Indwelling Catheter # Bowel Movements 1 1 ABP, PAP, CO, CI - Last Documented Arterial Blood Pressure 120/59 - Exam Physical Exam: Revealed 31-year-old -[place] male, on mechanical ventilation, arousable, able to follow simple instructions, generally weak. Head: Atraumatic, normocephalic. HEENT: Short obese neck. [Neck is supple.] [No neck masses.] [No thyromegaly.] [No JVD.] Tracheostomy is intact Chest: [Symmetrical chest expansion, bibasilar crackles persists. Cardiac Exam: Distant S1 and S2, no S3 gallop, no murmur. Abdomen: [Obese, soft, nontender, no megaly, no rebound, no guarding. Extremities: No clubbing, trace of edema, no cyanosis. Neurological Exam: Arousable, follows simple instructions. But is generally weak Psychiatric: Could not be assessed Musculoskeletal: No deformities, generally weak. Skin: No rashes. - Labs CBC & Chem 7: 08/27/21 04:50 08/27/21 04:50 Labs: Abnormal Lab Results - Last 24 Hours (Table) 08/26/21 08/26/21 08/26/21 Range/Units 11:00 17:43 23:31 RBC (4.30-5.90) m/uL Hgb (13.0-17.5) gm/dL Hct (39.0-53.0) % MCHC (31.0-37.0) g/dL RDW (11.5-15.5) % Lymphocytes # (1.0-4.8) k/uL Carbon Dioxide (22-30) mmol/L BUN (9-20) mg/dL Glucose (74-99) mg/dL POC Glucose (mg/dL) 123 H 112 H (75-99) mg/dL Procalcitonin 0.25 H (0.02-0.09) ng/mL 08/27/21 08/27/21 08/27/21 Range/Units 04:50 04:50 11:26 RBC 2.93 L (4.30-5.90) m/uL Hgb 8.1 L (13.0-17.5) gm/dL Hct 27.3 L (39.0-53.0) % MCHC 29.8 L (31.0-37.0) g/dL RDW 18.6 H (11.5-15.5) % Lymphocytes # 0.7 L (1.0-4.8) k/uL Carbon Dioxide 32 H (22-30) mmol/L BUN 27 H (9-20) mg/dL Glucose 104 H (74-99) mg/dL POC Glucose (mg/dL) 104 H (75-99) mg/dL Procalcitonin (0.02-0.09) ng/mL Microbiology - Last 24 Hours (Table) 08/26/21 11:21 Blood Culture - Preliminary Blood No Growth after 24 hours 08/26/21 11:00 Blood Culture - Preliminary Blood No Growth after 24 hours 08/25/21 15:50 Gram Stain - Preliminary Sputum Sputum Culture - Preliminary Assessment and Plan Assessment: Impression: Acute hypoxic respiratory failure secondary to COVID-19 pneumonia, intubated on August 06, tracheostomy August 14, on pressure support mode of mechanical ventilation August 26. Tolerated pressure support mode of mechanical ventilation for almost 24 hours. ARDS secondary to COVID-19 pneumonia Elevated inflammatory markers secondary to COVID-19 pneumonia Acute pulmonary embolism secondary to COVID-19 pneumonia Elevated liver enzymes secondary to COVID-19 pneumonia and infection Morbid obesity, BMI of 43.1. Benign essential hypertension. Acute kidney injury/resolved.. Status post tracheostomy because of failure to wean. 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 The pressure support of 14. Physical therapy to evaluate. Continue Precedex. Continue Decadron Continue Eliquis Monitor tracheostomy and cuff leak. Continue enteral feeding. Consider transferring the patient to select care specialty. Continue GI and DVT prophylaxis. Patient remains critically ill, we'll continue to monitor closely. Will update his on his condition today Critical care time is over 30 minutes Time with Patient: Greater than 30
[2021-08-27] MEDS ORDERED: propofoL 100 ML IV ONE (14:59)
[2021-08-27] MEDS ORDERED: HYDROmorphone 1 MG/ML 1 ML SYRINGE IVP STA (15:00)
--- NOTE | 2021-08-27 15:32 | P.PN ---
Subjective Progress Note Date: 08/26/21 Principal diagnosis: Acute hypoxemic respiratory failure secondary to Covid pneumonia This is a pleasant 31 years old -[place] man with no significant past medical history presents with dyspnea which started yesterday associated with fever and coughing. Patient tested positive for covid earlier on Thursday after he felt with fever and cough on Thursday but at that time he was not dyspneic. He denies chest pain or abdominal pain but he has diarrhea on and off. No vomi ting. He is saturating 89% on 6 L oxygen via nasal cannula, afebrile. Tachypneic with a breathing rate at 23. CBC, is unremarkable. INR is normal at 1.0. Sodium is 1:30, creatinine normal at 1.1, glucose 103. AST is mildly elevated 106 and ALT mildly elevated 106. Elevated lactate dehydrogenase 2600 and C-reactive protein 20.3. Cholelithiasis positive EKG shows sinus tachycardia and [address]-T changes Chest x-ray showing bilateral infiltrates 08/01/2021 Patient sitting at bedside using 50 L of oxygen via nonrebreather. Reports slight improvement in his breathing and his chest x-ray showing somewhat improvement in that area should on both sides. He has low-grade fever today at 200. Blood pressure is stable. D-dimer is 1.87. BMP is unremarkable, liver enzymes slightly trending down. LDH slightly down at 2437 and slightly decreased and C-reactive protein 16.7. C BC and pro-calcitonin are pending Sputum and blood culture are still pending He remains on multiple vitamins, Baricitinib, dexamethasone and normal saline at 75 mL/h. Also he is on Lovenox. Norvasc is added for blood pressure control also we will add metoprolol Subjective: 08/05/21 patient still with dyspnea requiring BiPAP most of the time. He is developing fever of 101.7 today. Blood pressure 157/91. He has leukocytosis 19.1.liver enzymes Are the same. LDH elevated 2935 and C- reactive protein 18.2 his still on multiple vitamins, Baricitinib, dexamethasone and normal saline at 50 mL/h. Also he is on Lovenox therapeutic dose after his d-dimer yesterday. 08/06/2021 Patient remains on BiPAP needing higher pressures 14/8 and FiO2 of 100%. Also history of chronic fever around 100 and pro-calcitonin elevated at 0.40. This left leukocytosis around 22, LDH and C-reactive protein still elevated. D- dimer is trending down to 8.5 and CTA of the chest today showing negative for PE but bilateral groundglass opacity. Sputum culture 2 is negative. Urine analysis is negative for infection Today patient SWITCHED to heparin drip. Also he was started on Zosyn. Also dexamethasone 6 mg daily and normal saline at 50 mL per hour. Discontinue Baricitinib per pulmonary 08/07/2021 Patient respiratory status got worse and eventually patient got intubated while he is in the ICU. Pulmonary/critical care team following the patient closely and help with vent management. He has a fever of 100. Breathing rate around 29. Blood pressure is stable. WBC down to 19 K, Patient is acidotic with pH of 7.2, pCO2 of 57 which is low and high pO2 of 99. Chest x-ray showed increasing bilateral infiltrate and left lower lobe pneumonia. Repeat sputum culture is pending. First 2 samples were negative He remains on Zosyn, dexamethasone, normal saline at 50 mL per hour , heparin drip, multiple vitamins 08/08/2021 Patient remains in the ICU in critical condition and generally he is not doing well. I'll intubated and on mechanical ventilation with the pulmonary/critical care team R following closely He is hemodynamically stable, mildly tachycardic. WBC improving down to 15 but also hemoglobin dropped to 11.9 down to 9.8. And while he continued on heparin drip for suspected thrombosis secondary to his Covid infection and high d-dimer will increase his for chronic 40 mg daily and to twice a day. Patient FiO2 was lowered to 70%, he did not tolerate the prone position. He has no fever but tachypneic at 38 Today his creatinine went up 1.0 up to 2.8 with mild hyperkalemia however he is making good urine output with yellow urine in his Lees catheter bag nephrology team were consulted and bicarb drip was started for acidosis with pH of 7.22. He remains on Zosyn, dexamethasone, vitamin C, D and zinc. 08/09/2021 Remains in the ICU in critical condition. He continue on mechanical ventilation with pulmonary/critical care team on the consult. He still significantly tachypneic at 38 and leukocytosis. Possibly just at that time level 18 to 20, prone position was tried but patient could not tolerate it so avoided now. Labs showing improvement leukocytosis 12 K, hemoglobin 9.2, FiO2 lower to 55%. Creatinine improved slightly to 2.2 after starting normal saline at 75 mL/h. Chest x-ray showing the same findings of bilateral pneumonia. Dexamethasone was increased to twice daily today, normal saline 75 mL/h started. Well continued on heparin drip, Zosyn and multiple vitamins 08/10/2021 Patient condition did not change much from yesterday. He remains intubation only FiO2 lower to 55 from 70% and PEEP down to 18. With pulmonary/critical care team following the case closely. This remains tachycardia. No need for pressors. He hasn't been fever for the last 48 hours. D-dimer trending down to 1.7. WBC down to 11.8. Hemoglobin down to 8.9. Inflammatory markers improved to 114 and 19.9.. Creatinine is stable from yesterday at 2.2. Chest x-ray showing similar infiltrate both sides more on the left side. He remains on Zosyn, multiple vitamins, dexamethasone, normal saline, heparin drip. 08/11/2021 Patient remains in the ICU in critical condition. He is currently on mechanical ventilation significantly tachypneic around 38. With the floor at about 60 L/m. He is FiO2 of 60% and PEEP of 20. With pulmonary/critical care team opened and vent management. Labs showing WBC 12.6, hemoglobin slightly trending to 7.8. Lactate dehydrogenase 1245 and C-reactive protein down to 13.6. Creatinine is 2.0 Is on Zosyn, dexamethasone, normal sinus 75, heparin drip. 08/12/2021 Patient is currently in the intensive care unit. Remains on mechanical ventilator due to acute hypoxemic respiratory failure with Covid pneumonia Currently on before meals 375, FiO2 60% and PEEP of 20. Patient is on Nimbex drip and heparin subcu. Patient is also on fentanyl. Laboratory data showed WBC 15 hemoglobin 7.8 hematocrit 26.1 and platelets 433 And d-dimer is 1.68 sodium 140 potassium 5.3 chloride 101 bicarb is 25 BUN 16 creatinine 1.73. The LDH 1160. Chest x-ray showed findings similar to prior exam. Correlate for pneumonia, edema, ARDS. 08/13/2021 Patient is currently in the intensive care unit. Remains on mechanical ventilator. Assist control 375 and FiO2 at 50% and PEEP of 20. Currently being continued on Nimbex and fentanyl drip. Patient is being converted on IV heparin due to pulmonary embolism. Patient is being controlled on antibiotic Levaquin and Zosyn. Patient is scheduled for vacation and PEG tube placement tomorrow. Laboratory data showed WBC 30.0, hemoglobin 9.5 platelets 634 D-dimer 2.68, sodium 140 potassium 5.6 chloride 108 BUN 51 and creatinine 1.61, AST 75 ALT 193 Patient is being continued on dexamethasone 6 mg IV twice a day. Pulmonary and nephrology and general surgery is on board. 08/14/2021 Patient is currently in the MICU on mechanical ventilator. His control with tidal volume 375, FiO2 55%, PEEP of 20. Patient is on Nimbex drip and propofol and fentanyl drip as well as heparin drip due to pulmonary embolism. Patient is scheduled for tracheostomy and PEG tube placement. Remains on antibiotics in the form of Levaquin and Zosyn. Laboratory data showed WBC 17.5 hemoglobin 7.7 and platelets 462 Sodium 139 potassium 5.2 chloride 108 BUN 51 and creatinine 1.77 Albumin 2.7 and total protein 5.5. Tube feedings on hold for scheduled surgical procedure. Pulmonary, nephrology and general surgery is on board. 08/15/2021 Patient is currently in the MICU. Patient had tracheostomy and is currently remains mechanical ventilator. FiO2 55% and PEEP of 20. Patient is also on propofol, Nimbex and fentanyl drip. Also on heparin IV due to pulmonary embolism. NG tube was taken out prior to tracheostomy. Laboratory data showed WBC 15.6 hemoglobin 7.4 platelets 404 and D-dimer 3.76 Sodium 137 potassium 4.9 chloride 105 bicarb is 25 BUN 49 and creatinine 1.59 Repeat chest x-ray today showed diffuse bilateral infiltrates. Patient remains dexamethasone, antibiotics no cough Levaquin and Zosyn. Pulmonary and nephrology and general surgery is on board. 08/26/2021 Patient was admitted to the hospital due to COVID-19 pneumonia and acute hypoxic respiratory failure. Patient was also found have acute PE. Currently patient is status post tracheostomy and remains on mechanical ventilator. Patient is in the MICU currently. on pressure control 12 and FiO2 40% and PEEP of 10. Patient is awake alert and able to follow simple commands. Patient did have T- max 101 last night. Sputum cultures were sent. Chest x-ray showed stable chest. Patient is being continued on Lasix 40 mg IV daily, ascorbic acid, vitamin D3 and anticoagulation the form of Eliquis. Heart rate is controlled with metoprolol. Pulmonary and nephrology and surgery is on board. Patient is tolerating tube feeding. Current medications reviewed. Objective - Vital Signs Vital signs: Vital Signs Temp 98.5 F 08/26/21 16:00 Pulse 80 08/26/21 19:00 Resp 36 H 08/26/21 19:00 BP 118/61 08/26/21 19:00 Pulse Ox 93 L 08/26/21 19:00 Intake & Output 08/26/21 08/26/21 08/27/21 06:59 18:59 06:59 Intake Total 426.019 8699 98 Output Total 1140 2565 Balance -625.093 -1323 98 Weight 113.8 kg 113.8 kg Intake: IV 243 240 20 Sodium Chloride 0.9% 1, 240 240 20 000 ml @ 20 mls/hr IV . Q24H MARGARITA Rx#:[id number] pressure bag .9 3 Intake, IV Titration 241.907 300 Amount Dexmedetomidine/0.9% NaCl 241.907 300 (Pmx) 400 mcg In Empty Bag 1 bag @ 0.7 MCG/KG/HR 21.158 mls/hr IV .Q4H44M MARGARITA Rx#:[id number] Tube Feeding 30 462 78 Other 240 Output: Urine 1140 2565 Other: Voiding Method Indwelling Catheter Indwelling Catheter ABP, PAP, CO, CI - Last Documented Arterial Blood Pressure 120/59 - Exam - Exam -GENERAL: The patient is status post tracheostomy and on mechanical ventilator. Awake alert and oriented. Follows simple commands. HEENT: Pupils are round and equally reacting to light. EOMI. No scleral icterus. No conjunctival pallor. Normocephalic, atraumatic. No pharyngeal erythema. No th yromegaly. CARDIOVASCULAR: S1 and S2 present. No murmurs, rubs, or gallops. -PULMONARY: Chest is clear to auscultation, no wheezing, tachypnea ABDOMEN: Soft, nontender, nondistended, normoactive bowel sounds. No palpable organomegaly. Bilateral coarse breath sounds. Tracheostomy in place. On [facility] hanical ventilator. MUSCULOSKELETAL: No joint swelling or deformity. EXTREMITIES: No cyanosis, clubbing, or pedal edema. NEUROLOGICAL: Gross neurological examination did not reveal any focal deficits. SKIN: No rashes. No petechiae - Labs CBC & Chem 7: 08/27/21 04:50 08/27/21 04:50 Labs: Abnormal Lab Results - Last 24 Hours (Table) 08/26/21 08/26/21 08/26/21 Range/Units 04:42 04:42 05:22 RBC 2.99 L (4.30-5.90) m/uL Hgb 8.4 L (13.0-17.5) gm/dL Hct 29.0 L (39.0-53.0) % MCHC 28.9 L (31.0-37.0) g/dL RDW 18.7 H (11.5-15.5) % Lymphocytes # 0.6 L (1.0-4.8) k/uL ABG pH 7.50 H (7.35-7.45) ABG pO2 72 L (83-108) mmHg ABG HCO3 30 H (21-25) mmol/L BUN 26 H (9-20) mg/dL POC Glucose (mg/dL) (75-99) mg/dL Procalcitonin (0.02-0.09) ng/mL Urine Blood (Negative) Urine RBC (0-5) /hpf Urine Bacteria (None) /hpf Urine Mucus (None) /hpf 08/26/21 08/26/21 08/26/21 Range/Units 05:34 10:10 11:00 RBC (4.30-5.90) m/uL Hgb (13.0-17.5) gm/dL Hct (39.0-53.0) % MCHC (31.0-37.0) g/dL RDW (11.5-15.5) % Lymphocytes # (1.0-4.8) k/uL ABG pH (7.35-7.45) ABG pO2 (83-108) mmHg ABG HCO3 (21-25) mmol/L BUN (9-20) mg/dL POC Glucose (mg/dL) 106 H (75-99) mg/dL Procalcitonin 0.25 H (0.02-0.09) ng/mL Urine Blood Trace H (Negative) Urine RBC 7 H (0-5) /hpf Urine Bacteria Rare H (None) /hpf Urine Mucus Rare H (None) /hpf 08/26/21 08/26/21 Range/Units 11:33 17:43 RBC (4.30-5.90) m/uL Hgb (13.0-17.5) gm/dL Hct (39.0-53.0) % MCHC (31.0-37.0) g/dL RDW (11.5-15.5) % Lymphocytes # (1.0-4.8) k/uL ABG pH (7.35-7.45) ABG pO2 (83-108) mmHg ABG HCO3 (21-25) mmol/L BUN (9-20) mg/dL POC Glucose (mg/dL) 106 H 123 H (75-99) mg/dL Procalcitonin (0.02-0.09) ng/mL Urine Blood (Negative) Urine RBC (0-5) /hpf Urine Bacteria (None) /hpf Urine Mucus (None) /hpf Microbiology - Last 24 Hours (Table) 08/25/21 15:50 Sputum Culture - Preliminary Sputum Assessment and Plan Assessment: Acute bilateral Covid pneumonia, with suspected bacterial superinfection mainly in the left lower lobe Acute hypoxic respiratory failure, remains on mechanical ventilation. s/p traheostomy ARDS secondary to Right lung PE maintained on IV heparin Elevated inflammatory markers Acute kidney injury secondary to ATN with Covid pneumonia. Resolved. Hypertension Hyperkalemia secondary to acute kidney injury Anemia Metabolic acidosis Elevated d-dimer Obesity with BMI of 49.8 Plan: This is a pleasant 31 years old male who presents with bilateral Covid pneumonia and hypoxia. Patient remains on mechanical ventilator..s/p traheostomy. Completed dexamethasone course . Continue with vitamin C, vitamin D and zinc. Discont inue Baricitinib . Continue with Zosyn and Levaquin. Was on heparin drip for acute PE. Changed to increase. Continued on normal saline KVO. Patient is scheduled for tracheostomy. Tolerating tube feeding NG tube. Pulmonary and nephrology is on board. Monitor creatinine. Pulmonary/critical care team is following. Labs and medication were reviewed. Monitor lytes and vitals. DVT and GI prophylaxis. Further recommendations depends on the clinical course of the patient DVT prophylaxis: Eliquis GI Prophylaxis: Protonix Time with Patient: Greater than 30
--- NOTE | 2021-08-27 15:43 | XR ---
EXAMINATION TYPE: XR chest 1V portable DATE OF EXAM: 08/27/2021 COMPARISON: Chest x-ray 08/27/2021 HISTORY: Respiratory distress TECHNIQUE: Single frontal view of the chest is obtained. FINDINGS: Tracheostomy tube is overlying for position, NG tube is in place and the distal aspect is obscured by overlying leads. There is no evident pneumothorax or pleural effusion. Bilateral airspace disease is present. Left-sided PICC line is present. Lung volumes are low. IMPRESSION: Expiratory exam. Findings are similar to prior exam, correlate for pneumonia
[2021-08-27] MEDS: SODIUM CHLORIDE 0.9% 1,000 ML IV SCH (15:50)
[2021-08-27] MEDS ORDERED: CISATRACURIUM 2 MG/ML 5 ML VIAL IV ONE ×2 (15:59→16:15)
[2021-08-27] MEDS: fentaNYL (PF). 1,000 MCG in SODIUM CHLORIDE 0.9% 80 ML IV SCH ×3 (16:14→23:41)
[2021-08-27] MEDS: PIPERACILLIN-TAZOBACTAM 3.375 GM in SODIUM CHLORIDE 0.9% 100 ML IVPB SCH (16:28)
[2021-08-27] MEDS: CISATRACURIUM 200 MG in SODIUM CHLORIDE 0.9% 180 ML IV SCH ×2 (16:28→23:13)
[2021-08-27 17:11] LABS: Allen Test Performed? Yes
[2021-08-27 17:12] LABS: ABG Base Excess 7.6 mmol/L; ABG HCO3 33 mmol/L (21-25); ABG PCO2 54 mmHg (35-45); ABG PO2 187 mmHg (83-108)
[2021-08-27] MEDS: LABETALOL 5 MG/ML VIAL MDV IVP PRN (17:16)
[2021-08-27 18:08] LABS: Glucose,Whole Blood 100 mg/dL (75-99)
[2021-08-27] MEDS: QUEtiapine 25 MG TAB PO SCH (20:45)
[2021-08-28 00:07] LABS: Glucose,Whole Blood 104 mg/dL (75-99)
[2021-08-28] MEDS: PIPERACILLIN-TAZOBACTAM 3.375 GM in SODIUM CHLORIDE 0.9% 100 ML IVPB SCH ×3 (00:11→16:09)
[2021-08-28] MEDS: INSULIN ASPART (NovoLOG) 100 UNIT/ML VIAL SQ SCH ×4 (00:16→18:49)
[2021-08-28] MEDS: fentaNYL (PF) 2,500 MCG in SODIUM CHLORIDE 0.9% 200 ML IV SCH ×3 (02:26→16:10)
[2021-08-28] MEDS: SODIUM CHLORIDE 0.9% 1,000 ML IV SCH (04:51)
[2021-08-28] MEDS: CISATRACURIUM 200 MG in SODIUM CHLORIDE 0.9% 180 ML IV SCH ×2 (05:09→12:22)
[2021-08-28 05:15] LABS: Glucose,Whole Blood 94 mg/dL (75-99)
[2021-08-28 05:21] LABS: ABG Base Excess 6.9 mmol/L; ABG HCO3 31 mmol/L (21-25); ABG Oxygen Saturation 95.8 % (94-97); ABG PCO2 46 mmHg (35-45); ABG PH 7.45 (7.35-7.45); ABG PO2 75 mmHg (83-108); Allen Test Performed? Yes
[2021-08-28 06:52] LABS: ALT 32 U/L (4-49); AST 24 U/L (17-59); African American GFR (CKD) >90 (>60 ml/min/1.73 sqM); Alkaline Phosphatase 61 U/L (38-126); Anion Gap 9 mmol/L; Blood Urea Nitrogen 23 mg/dL (9-20); Carbon Dioxide 29 mmol/L (22-30); Chloride 101 mmol/L (98-107); Glucose 90 mg/dL (74-99); Non-African American GFR(CKD) >90 (>60 ml/min/1.73 sqM); Potassium 3.9 mmol/L (3.5-5.1); Sodium 139 mmol/L (137-145); Total Bilirubin 0.7 mg/dL (0.2-1.3); Total Protein 5.8 g/dL (6.3-8.2)
[2021-08-28 07:56] LABS: Anisocytosis Slight; Basophils % (A) 0 %; Eosinophils # (A) 0.3 k/uL (0-0.7); Eosinophils % (A) 6 %; HCT 33.3 % (39.0-53.0); HGB 9.4 gm/dL (13.0-17.5); Hypochromasia Marked; Lymphocytes # (A) 0.8 k/uL (1.0-4.8); Lymphocytes % (A) 14 %; MCH 27.5 pg (25.0-35.0); MCHC 28.2 g/dL (31.0-37.0); MCV 97.4 fL (80.0-100.0); Macrocytosis Slight; Monocytes # (A) 0.8 k/uL (0-1.0); Monocytes % (A) 13 %; Neutrophils # (A) 3.6 k/uL (1.3-7.7); Neutrophils % (A) 64 %; Platelet Count 279 k/uL (150-450); RBC 3.42 m/uL (4.30-5.90); RDW 18.3 % (11.5-15.5); WBC 5.6 k/uL (3.8-10.6)
[2021-08-28] MEDS: PANTOPRAZOLE 40 MG/10 ML VIAL IVP SCH ×2 (08:06→20:00)
[2021-08-28] MEDS: FUROSEMIDE 10 MG/ML 4 ML VIAL IV SCH (08:06)
[2021-08-28] MEDS: bisacodyL 10 MG SUPP RECTAL SCH (08:13)
[2021-08-28] MEDS: CHLORHEXIDINE GLUCONATE 15 ML CUP MUCOUS MEM SCH ×2 (08:13→20:00)
[2021-08-28] MEDS: QUEtiapine 25 MG TAB PO SCH ×2 (08:14→20:04)
[2021-08-28] MEDS: METOPROLOL TARTRATE 50 MG TAB PO SCH ×2 (08:14→20:00)
[2021-08-28] MEDS: amLODIPine 5 MG TAB PO SCH ×2 (08:14→20:00)
[2021-08-28] MEDS: ZINC SULFATE 220 MG CAP PO SCH (08:14)
[2021-08-28] MEDS: CHOLECALCIFEROL 25 MCG (1000 IU) TABLET PO SCH (08:14)
[2021-08-28] MEDS: ASCORBIC ACID 500 MG TAB PO SCH (08:14)
[2021-08-28] MEDS: SENNOSIDES-DOCUSATE SODIUM 1 EACH TAB PO SCH (08:15)
--- NOTE | 2021-08-28 08:41 | XR ---
EXAMINATION TYPE: XR chest 1V portable DATE OF EXAM: 08/28/2021 COMPARISON: 08/27/2021 INDICATION: covid TECHNIQUE: Single frontal view of the chest is obtained. FINDINGS: The heart size is normal. The pulmonary vasculature is normal. Patchy infiltrates within the upper lung stevens and left lower lobe. No significant interval change i s evident. Endotracheal tube is in the midline. Nasogastric tube transverses the thorax IMPRESSION: 1. Patchy bilateral lung infiltrates compatible with atypical pneumonia
[2021-08-28 10:20] LABS: Poikilocytosis (M) Present; Tear Drop Cells Present
--- NOTE | 2021-08-28 11:27 | P.PN ---
Progress Note - Text Progress Note Date: 08/28/21 (2110) Anesthesiology Asked to see patient for Dr. Green as the tracheostomy tube was leaking. No bleeding. Edema of face and neck seems decreased from radius encounters with this patient. Plan was made. Oxygen was increased 200% O2. Respiratory bedside. Zemuron 50 mg. Propofol 40 mg. [place] scope was then used to visualize cords. 7.5 endotracheal tube placed through cords superior to tracheostomy. Bougie was then placed down tracheostomy and tracheostomy was removed. Tube was then advanced and confirmed via respiratory. Once we had confirmation we removed the Bougie. Assessment 1 leaking tracheostomy tube site. Plan intubation removed lynne
[2021-08-28 11:43] LABS: Glucose,Whole Blood 69 mg/dL (75-99)
[2021-08-28] MEDS ORDERED: DEXTROSE 50% SYRINGE 50 ML IVP ONE (11:44)
[2021-08-28] MEDS: APIXABAN 5 MG TAB PO SCH (11:49)
[2021-08-28] MEDS: hydrALAZINE HCL 25 MG TAB PO SCH ×3 (11:49→20:00)
[2021-08-28 12:19] LABS: Glucose,Whole Blood 92 mg/dL (75-99)
--- NOTE | 2021-08-28 12:29 | P.OP ---
Date of Procedure: 08/28/21 Preoperative Diagnosis: Chief tracheostomy tube malfunction Postoperative Diagnosis: Tracheostomy tube malfunction with ruptured balloon Procedure(s) Performed: Revision of tracheostomy Anesthesia: NAYLA Surgeon: Darian Green Estimated Blood Loss (ml): 10 Pathology: none sent Condition: stable Disposition: ICU Description of Procedure: The patient's placed on his bed in supine position. His neck was extended. His neck was prepped and draped in sterile fashion. Patient been previously endotracheal intubated. The skin sutures were cut. And then using a retractor the wound was exposed. Using cautery the subcutaneous tissue divided further. And then another second we liver was placed into the wound. The tracheostomy was visualized. At this point the endotracheal tube was brought back under direct vision. And then the #8 Shiley XLT tracheostomy tube was placed into the trachea. She is currently ventilator. Good tidal volume and and oxygenation. The skin incision was then closed with 3-0 nylon after retractors were withdrawn. Tracheostomy tie was placed. Tolerated the procedure well.
--- NOTE | 2021-08-28 12:58 | XR ---
EXAMINATION TYPE: XR chest 1V portable DATE OF EXAM: 08/28/2021 COMPARISON: 08/28/2021 HISTORY: SOB, Follow Up FINDINGS: Tracheostomy tube has been replaced with a new tracheostomy tube and is appropriately placed. NG tube is seen within the stomach. Left-sided PICC line is in place. No change in upper lobe and mid lung infiltrates. Stable appearance of the cardio-mediastinal structures at this time. Pleural effusion unchanged. IMPRESSION: 1. No change in upper lobe and mid lung infiltrates. Clinical correlation and follow up until resolu tion is recommended.
[2021-08-28] MEDS ORDERED: SODIUM CHLORIDE 0.9% 1,000 ML IV ONE (13:59)
--- NOTE | 2021-08-28 14:42 | P.PN ---
Subjective Progress Note Date: 08/28/21 Principal diagnosis: Acute hypoxic respiratory failure secondary to COVID-19 pneumonia On 08/25/2021, I'm seeing this patient for a follow-up. I'm pleased to report that the patient is awake and alert and following simple commands. He is weak. He is able to move his arms against gravity. Weakness is more in the lower extremities. Opens eyes spontaneously. His calm and comfortable. No agitation. He is off propofol. Is on fentanyl at 1.25 mcg/kg/h and he is also on Precedex at a dose of 0.7. He remains on a mechanical ventilator. As mentioned earlier, swish and poor pressure control mode of mechanical ventilation and this morning the patient is on a pressure control of 16, PEEP of 10, FiO2 of 40% and a rate of 26. His blood gases from today showed a pH of 7.5 0 with a pCO2 of 41 and pO2 of 62. He is having some limited amount of rest or secretions. Sputum culture will be sent. Meanwhile, the chest x-ray findings are essentially stable. Tracheostomy tube is in a good location. The [place] tracheostomy tube cuff is deflated for now. The balloon itself is malfunctioning is not holding any pressure. Nevertheless, we have not seen any significant air leak through his mouth nor around the tracheostomy tube stoma. NG tube is in place. He is receiving enteral feeding for nutritional support. He is on anticoagulation with Eliquis. No bleeding complications. He remains on Decadron at a dose of 10 mg by mouth daily. He is also diuresing with IV Lasix. He is receiving Lasix 40 mg IV every 12 hours. His overall fluid balance over the past 24 hours has been negative and the order of -1.8 L. His weight is also improving. All 4 extremity edema is also improving. Very happy with his progress. His was at the bedside. Arterial line will be removed. Reevaluated today on 08/26/21, patient remains in the ICU, intubated and mechanically ventilated. Patient is on pressure control mode of mechanical ventilation, with pressure control of 12, inspiratory time of 0.9, FiO2 is 40%, and PEEP of 10. ABG showed a pO2 of 72 pCO2 of 39 pH of 7.50 patient is on Precedex at 0.5 mcg/kg/h, he is also on IV fluid at KVO, he is not requiring any pressors. Today after evaluating the patient, I recommended switching the patient to pressure support mode of mechanical ventilation with a pressure support of 14, and I recommended that we keep him on a PEEP of 8 and FiO2 was increased to 45%. Patient is receiving Nepro for nutritional support, his peak airway pressure is only 27. He had a temp of 101 last night, presently 99.4. Sputum was sent for cultures. Patient remains on Lasix at 40 mg daily. Chest x-ray continues to show bilateral infiltrates. But significantly improved compared to baseline. Patient is arousable, and he is extremely weak but he is able to follow simple instructions. After placing the patient on pressure sup port, patient seems to be moving good tidal volumes, and his respiratory rate is in the high 20s. Low 30s. Seems to be fairly comfortable with a pressure support mode of mechanical ventilation. A shunt remains on the COVID-19 cocktail. Remains on Precedex. He is also on Seroquel 50 mg twice a day. Protonix 40 mg IV push twice a day. His also on Lopressor 50 mg twice a day. And labetalol as needed patient is also on Eliquis 5 mg twice a day for his history of pulmonary embolism. Patient was reevaluated today on 08/27/2021, remains in the ICU, intubated and mechanically ventilated. Yesterday the patient tolerated almost 24 hours of pressure support mode of mechanical ventilation with a pressure support of 14. However earlier this morning the patient was noted to be a bit more short of breath, he was placed back on a pressure control mode of mechanical ventilation, and FiO2 of 45%, PEEP of 8, patient is doing well and he seems to be more comfortable. No ABG was done this morning. Chest x-ray continues to bilateral infiltrates. Patient remains on Precedex, not requiring any pressors, not requiring any other form of sedation. Patient apparently developed critical illness Pollyneuromyopathy, and he seems to be steadily improving, and I have recommended physical therapy, today we'll plan to place him back on pressure support of 14 and a PEEP of 8, FiO2 will remain at 45%. Patient remains on anticoagulation therapy for his pulmonary embolism. He remains on tube feeds receiving Nepro at 59 mL per hour. Hemodynamically he is stable. And I'm hoping at least we could give him another trial today of pressure support after resting him for few hours on pressure control mode of mechanical ventilation. Basic metabolic profile is normal today. Count is 4.1 hemoglobin is 8.1. C. diff screening is negative. Chest x-ray is basically about the same, continues to show bilateral infiltrates. Patient was reevaluated today on 08/28/21, remains in the ICU, intubated and mechanically ventilated. Yesterday the patient had a setback, while the patient was on pressure support mode of weaning, and he was doing fine, suddenly the patient was gagging on his tracheostomy tube, and small amount of secretions came out through his mouth, patient went on to develop worsening leak around the tracheostomy and he was getting worse clinically as I was watching the patient. Hence I had to paralyze the patient and put him back on Nimbex, and adjusted the tracheostomy and adjusted his neck to the point there was no cuff leak any further. The cuff was actually not holding any air in the tracheostomy, and I have contacted the surgeon to arrange for possibly tracheostomy change as soon as possible. I was able to stabilize the airway however the patient had to be sedated and paralyzed in order to avoid further cuff leak. Overnight the patient was kept on mechanical ventilation, he is now on volume control/assist- control mode of mechanical ventilation, he is on assist control rate of 24th of volume 450 FiO2 50% and PEEP of 12. I was able to cut down his FiO2 to 45%. Discussed again with the surgeon this morning the plan to revise his trach and this was done shortly after my discussion with the surgeon. The surgeon had to use a retractor to open up the wound and make it more exposed, he used cautery and subcutaneous tissue divided then he was able to visualize the tracheostomy and then the endotracheal tube was pulled out under direct vision and a #8 Shile y XLT tracheostomy tube was placed in the trachea. Now that the patient is having a more stable airway/tracheostomy, I plan to discontinue Nimbex, and I plan to go back into cutting down on sedation as much as possible, and possibly go back to weaning mode of mechanical ventilation hopefully in the next 24 hours. But I would definitely discontinue Nimbex now the airway seems to be more stable. This morning the patient is on propofol at 75-3 mcg/kg/h he is also on Nimbex, and IV fluid at 20 mL per hour. Tube feeding was placed on hold yesterday, may consider restarting the tube feeding today. Patient continued to have intermittent episodes of fevers yesterday, low-grade, and I recommended empirically starting the patient on Zosyn. 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 Left lung seems to be more affected than the right lung. WBC count today is 5.6 hemoglobin is 9.4. electrolytes are normal renal profile is normal Objective - Vital Signs Vital signs: Vital Signs Temp 98 F 08/28/21 12:00 Pulse 86 08/28/21 14:00 Resp 24 08/28/21 14:00 BP 138/79 08/28/21 14:00 Pulse Ox 96 08/28/21 14:00 Intake & Output 08/27/21 08/28/21 08/28/21 18:59 06:59 18:59 Intake Total 7986.310 0246.316 1215.834 Output Total 2795 775 2673 Balance -1508.487 601.316 -1457.166 Weight 113.8 kg 113.8 kg Intake: IV 240 240 240 Sodium Chloride 0.9% 1, 240 240 140 000 ml @ 20 mls/hr IV . Q24H [facility] Rx#:[id number] Intake, IV Titration 118.966 9692.316 915.834 Amount Cisatracurium 200 mg In 2.904 282.377 233.006 Sodium Chloride 0.9% 180 ml @ 1 MCG/KG/MIN 6.702 mls/hr IV .Q24H [facility] Rx#: [id number] Dexmedetomidine/0.9% NaCl 242.514 (Pmx) 400 mcg In Empty Bag 1 bag @ 0.7 MCG/KG/HR 21.158 mls/hr IV .Q4H44M [facility] Rx#:[id number] Piperacillin-Tazobactam 3 100 100 100 .375 gm In Sodium Chloride 0.9% 100 ml @ 25 mls/hr IVPB Q8HR [facility] Rx# :[id number] fentaNYL (PF) 2,500 mcg 289 In Sodium Chloride 0.9% 200 ml @ 3 MCG/KG/HR 39. 463 mls/hr IV .Q6H21M [facility] Rx#:[id number] fentaNYL (PF). 1,000 mcg 13.234 161.034 In Sodium Chloride 0.9% 80 ml @ 0.5 MCG/KG/HR 5. 585 mls/hr IV .[id number] [facility] Rx#:[id number] propofoL 1,000 mg In 57.861 592.905 293.828 Empty Bag 1 bag @ Titrate IV .Q0M [facility] Rx#: [id number] Tube Feeding 390 0 0 Other 240 60 Output: Gastric Drainage 50 300 Urine 2745 775 2370 Estimated Blood Loss 3 Other: Voiding Method Indwelling Catheter Indwelling Catheter Indwelling Catheter # Bowel Movements 1 1 ABP, PAP, CO, CI - Last Documented Arterial Blood Pressure 120/59 - Exam Physical Exam: Revealed 31-year-old -[place] male, on mechanical ventilation, sedated and paralyzed this morning before tracheostomy change. And revision Head: Atraumatic, normocephalic. HEENT: Short obese neck. [Neck is supple.] [No neck masses.] [No thyromegaly.] [No JVD.] Tracheostomy is intact Chest: [Symmetrical chest expansion, bibasilar crackles persists. Cardiac Exam: Distant S1 and S2, no S3 gallop, no murmur. Abdomen: [Obese, soft, nontender, no megaly, no rebound, no guarding. Extremities: No clubbing, trace of edema, no cyanosis. Neurological Exam: Could not assess, patient is intubated and paralyzed and sedated. Psychiatric: Could not be assessed Musculoskeletal: No deformities Skin: No rashes. - Labs CBC & Chem 7: 08/28/21 07:17 08/28/21 05:44 Labs: Abnormal Lab Results - Last 24 Hours (Table) 08/27/21 08/27/21 08/28/21 Range/Units 16:58 18:06 00:05 RBC (4.30-5.90) m/uL Hgb (13.0-17.5) gm/dL Hct (39.0-53.0) % MCHC (31.0-37.0) g/dL RDW (11.5-15.5) % Lymphocytes # (1.0-4.8) k/uL ABG pCO2 54 H (35-45) mmHg ABG pO2 187 H (83-108) mmHg ABG HCO3 33 H (21-25) mmol/L ABG O2 Saturation 100.0 H (94-97) % BUN (9-20) mg/dL POC Glucose (mg/dL) 100 H 104 H (75-99) mg/dL Total Protein (6.3-8.2) g/dL Albumin (3.5-5.0) g/dL 08/28/21 08/28/21 08/28/21 Range/Units 01:27 05:44 07:17 RBC 3.42 L (4.30-5.90) m/uL Hgb 9.4 L (13.0-17.5) gm/dL Hct 33.3 L (39.0-53.0) % MCHC 28.2 L (31.0-37.0) g/dL RDW 18.3 H (11.5-15.5) % Lymphocytes # 0.8 L (1.0-4.8) k/uL ABG pCO2 46 H (35-45) mmHg ABG pO2 75 L (83-108) mmHg ABG HCO3 31 H (21-25) mmol/L ABG O2 Saturation (94-97) % BUN 23 H (9-20) mg/dL POC Glucose (mg/dL) (75-99) mg/dL Total Protein 5.8 L (6.3-8.2) g/dL Albumin 3.0 L (3.5-5.0) g/dL 08/28/21 Range/Units 11:42 RBC (4.30-5.90) m/uL Hgb (13.0-17.5) gm/dL Hct (39.0-53.0) % MCHC (31.0-37.0) g/dL RDW (11.5-15.5) % Lymphocytes # (1.0-4.8) k/uL ABG pCO2 (35-45) mmHg ABG pO2 (83-108) mmHg ABG HCO3 (21-25) mmol/L ABG O2 Saturation (94-97) % BUN (9-20) mg/dL POC Glucose (mg/dL) 69 L (75-99) mg/dL Total Protein (6.3-8.2) g/dL Albumin (3.5-5.0) g/dL Microbiology - Last 24 Hours (Table) 08/26/21 11:21 Blood Culture - Preliminary Blood No Growth after 48 hours 08/26/21 11:00 Blood Culture - Preliminary Blood No Growth after 48 hours 08/25/21 15:50 Gram Stain - Final Sputum Sputum Culture - Final Assessment and Plan Assessment: Impression: Acute hypoxic respiratory failure secondary to COVID-19 pneumonia, intubated on August 06, tracheostomy August 14, on pressure support mode of mechanical ventilation August 26. And also on pressure support mode of mechanical ventilation on August 27, however the patient developed significant air leak from the tracheostomy, required placing the patient back on Nimbex, and on fentanyl as well as propofol. And the plan is to discontinue Nimbex later ARDS secondary to COVID-19 pneumonia, improving. Elevated inflammatory markers secondary to COVID-19 pneumonia Acute pulmonary embolism secondary to COVID-19 pneumonia Elevated liver enzymes secondary to COVID-19 pneumonia and infection Morbid obesity, BMI of 43.1. Benign essential hypertension. Acute kidney injury/resolved.. Status post tracheostomy because of failure to wean. Status post revision of tracheostomy on 08/28/20 one by general surgery. 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 Consider stopping Nimbex and gradually cut down on sedation including fentanyl and propofol. May even use it Precedex again if tolerated. Zosyn empirically for intermittent fevers, although cultures have been nondiagnostic. Continue Decadron Continue Eliquis Resume enteral feeding. Continue GI and DVT prophylaxis. Discussed his condition with his yesterday just before patient took a downhill course with significant air leak from the tracheostomy. Patient remains critically ill, we'll continue to monitor closely. Discussed his condition with general surgery today and the issues related to the tracheostomy. Critical care time is over 30 minutes Time with Patient: Greater than 30
[2021-08-28 17:56] LABS: Glucose,Whole Blood 96 mg/dL (75-99)
[2021-08-28] MEDS: ALBUTEROL HFA INHALER INHALATION PRN (20:35)
[2021-08-29] MEDS: PIPERACILLIN-TAZOBACTAM 3.375 GM in SODIUM CHLORIDE 0.9% 100 ML IVPB SCH ×3 (00:37→16:00)
[2021-08-29 00:43] LABS: Glucose,Whole Blood 95 mg/dL (75-99)
[2021-08-29] MEDS: INSULIN ASPART (NovoLOG) 100 UNIT/ML VIAL SQ SCH ×4 (00:43→18:04)
[2021-08-29 05:30] LABS: ABG Base Excess 6.2 mmol/L; ABG HCO3 31 mmol/L (21-25); ABG Oxygen Saturation 97.3 % (94-97); ABG PCO2 46 mmHg (35-45); ABG PH 7.44 (7.35-7.45); ABG PO2 87 mmHg (83-108); Allen Test Performed? Yes
[2021-08-29 06:07] LABS: Anisocytosis Slight; Basophils % (A) 0 %; Eosinophils # (A) 0.5 k/uL (0-0.7); Eosinophils % (A) 8 %; HCT 33.6 % (39.0-53.0); HGB 9.9 gm/dL (13.0-17.5); Hypochromasia Marked; Lymphocytes # (A) 0.6 k/uL (1.0-4.8); Lymphocytes % (A) 9 %; MCH 28.1 pg (25.0-35.0); MCHC 29.6 g/dL (31.0-37.0); MCV 94.9 fL (80.0-100.0); Macrocytosis Slight; Monocytes # (A) 0.3 k/uL (0-1.0); Monocytes % (A) 5 %; Neutrophils # (A) 4.7 k/uL (1.3-7.7); Neutrophils % (A) 76 %; Platelet Count 311 k/uL (150-450); RBC 3.54 m/uL (4.30-5.90); RDW 18.7 % (11.5-15.5); WBC 6.1 k/uL (3.8-10.6)
[2021-08-29 06:09] LABS: Glucose,Whole Blood 96 mg/dL (75-99)
[2021-08-29 06:19] LABS: Sodium 134 mmol/L (137-145)
[2021-08-29 06:21] LABS: ALT 25 U/L (4-49); AST 17 U/L (17-59); African American GFR (CKD) >90 (>60 ml/min/1.73 sqM); Albumin 2.9 g/dL (3.5-5.0); Alkaline Phosphatase 66 U/L (38-126); Anion Gap 8 mmol/L; Blood Urea Nitrogen 22 mg/dL (9-20); Calcium 8.7 mg/dL (8.4-10.2); Carbon Dioxide 28 mmol/L (22-30); Chloride 98 mmol/L (98-107); Glucose 102 mg/dL (74-99); Non-African American GFR(CKD) >90 (>60 ml/min/1.73 sqM); Potassium 3.8 mmol/L (3.5-5.1); Total Bilirubin 0.5 mg/dL (0.2-1.3); Total Protein 5.7 g/dL (6.3-8.2)
[2021-08-29] MEDS ORDERED: POTASSIUM BICARBONATE/CIT AC 20 MEQ TABLET.EFF NG-TUBE SCH (08:00)
[2021-08-29] MEDS: fentaNYL (PF) 2,500 MCG in SODIUM CHLORIDE 0.9% 200 ML IV SCH ×2 (08:06→08:08)
[2021-08-29 08:27] LABS: Glucose,Whole Blood 95 mg/dL (75-99)
[2021-08-29] MEDS: PANTOPRAZOLE 40 MG/10 ML VIAL IVP SCH ×2 (08:27→20:26)
[2021-08-29] MEDS: FUROSEMIDE 10 MG/ML 4 ML VIAL IV SCH (08:29)
[2021-08-29] MEDS: hydrALAZINE HCL 25 MG TAB PO SCH ×3 (08:30→22:45)
[2021-08-29] MEDS: CHOLECALCIFEROL 25 MCG (1000 IU) TABLET PO SCH (08:30)
[2021-08-29] MEDS: amLODIPine 5 MG TAB PO SCH ×2 (08:30→20:26)
[2021-08-29] MEDS: SENNOSIDES-DOCUSATE SODIUM 1 EACH TAB PO SCH (08:30)
[2021-08-29] MEDS: QUEtiapine 25 MG TAB PO SCH ×2 (08:30→20:26)
[2021-08-29] MEDS: METOPROLOL TARTRATE 50 MG TAB PO SCH ×2 (08:30→20:26)
--- NOTE | 2021-08-29 08:30 | XR ---
EXAMINATION TYPE: XR chest 1V portable DATE OF EXAM: 08/29/2021 COMPARISON: NONE HISTORY: SOB, Follow Up FINDINGS: Indwelling tubes and catheters are unchanged. Reticulonodular infiltrates persist unchanged. Stable appearance of the cardio-mediastinal structures at this time. IMPRESSION: 1. Stable portable chest. Clinical correlation and follow up until resolution is recommended.
[2021-08-29] MEDS: bisacodyL 10 MG SUPP RECTAL SCH (08:31)
[2021-08-29] MEDS: CHLORHEXIDINE GLUCONATE 15 ML CUP MUCOUS MEM SCH ×2 (08:31→20:26)
[2021-08-29] MEDS: ASCORBIC ACID 500 MG TAB PO SCH (08:31)
[2021-08-29] MEDS: ZINC SULFATE 220 MG CAP PO SCH (08:40)
[2021-08-29] MEDS: ALBUTEROL HFA INHALER INHALATION PRN ×3 (08:48→20:00)
[2021-08-29] MEDS: DEXMEDETOMIDINE/0.9% NACL(PMX) 400 MCG in EMPTY BAG 1 BAG IV SCH (11:35)
[2021-08-29 11:41] LABS: Glucose,Whole Blood 104 mg/dL (75-99)
--- NOTE | 2021-08-29 14:05 | P.PN ---
Subjective Progress Note Date: 08/29/21 Principal diagnosis: Acute hypoxic respiratory failure secondary to COVID-19 pneumonia On 08/25/2021, I'm seeing this patient for a follow-up. I'm pleased to report that the patient is awake and alert and following simple commands. He is weak. He is able to move his arms against gravity. Weakness is more in the lower extremities. Opens eyes spontaneously. His calm and comfortable. No agitation. He is off propofol. Is on fentanyl at 1.25 mcg/kg/h and he is also on Precedex at a dose of 0.7. He remains on a mechanical ventilator. As mentioned earlier, swish and poor pressure control mode of mechanical ventilation and this morning the patient is on a pressure control of 16, PEEP of 10, FiO2 of 40% and a rate of 26. His blood gases from today showed a pH of 7.5 0 with a pCO2 of 41 and pO2 of 62. He is having some limited amount of rest or secretions. Sputum culture will be sent. Meanwhile, the chest x-ray findings are essentially stable. Tracheostomy tube is in a good location. The B[place] tracheostomy tube cuff is deflated for now. The balloon itself is malfunctioning is not holding any pressure. Nevertheless, we have not seen any significant air leak through his mouth nor around the tracheostomy tube stoma. NG tube is in place. He is receiving enteral feeding for nutritional support. He is on anticoagulation with Eliquis. No bleeding complications. He remains on Decadron at a dose of 10 mg by mouth daily. He is also diuresing with IV Lasix. He is receiving Lasix 40 mg IV every 12 hours. His overall fluid balance over the past 24 hours has been negative and the order of -1.8 L. His weight is also improving. All 4 extremity edema is also improving. Very happy with his progress. His was at the bedside. Arterial line will be removed. Reevaluated today on 08/26/21, patient remains in the ICU, intubated and mechanically ventilated. Patient is on pressure control mode of mechanical ventilation, with pressure control of 12, inspiratory time of 0.9, FiO2 is 40%, and PEEP of 10. ABG showed a pO2 of 72 pCO2 of 39 pH of 7.50 patient is on Precedex at 0.5 mcg/kg/h, he is also on IV fluid at KVO, he is not requiring any pressors. Today after evaluating the patient, I recommended switching the patient to pressure support mode of mechanical ventilation with a pressure support of 14, and I recommended that we keep him on a PEEP of 8 and FiO2 was increased to 45%. Patient is receiving Nepro for nutritional support, his peak airway pressure is only 27. He had a temp of 101 last night, presently 99.4. Sputum was sent for cultures. Patient remains on Lasix at 40 mg daily. Chest x-ray continues to show bilateral infiltrates. But significantly improved compared to baseline. Patient is arousable, and he is extremely weak but he is able to follow simple instructions. After placing the patient on pressure sup port, patient seems to be moving good tidal volumes, and his respiratory rate is in the high 20s. Low 30s. Seems to be fairly comfortable with a pressure support mode of mechanical ventilation. A shunt remains on the COVID-19 cocktail. Remains on Precedex. He is also on Seroquel 50 mg twice a day. Protonix 40 mg IV push twice a day. His also on Lopressor 50 mg twice a day. And labetalol as needed patient is also on Eliquis 5 mg twice a day for his history of pulmonary embolism. Patient was reevaluated today on 08/27/2021, remains in the ICU, intubated and mechanically ventilated. Yesterday the patient tolerated almost 24 hours of pressure support mode of mechanical ventilation with a pressure support of 14. However earlier this morning the patient was noted to be a bit more short of breath, he was placed back on a pressure control mode of mechanical ventilation, and FiO2 of 45%, PEEP of 8, patient is doing well and he seems to be more comfortable. No ABG was done this morning. Chest x-ray continues to bilateral infiltrates. Patient remains on Precedex, not requiring any pressors, not requiring any other form of sedation. Patient apparently developed critical illness Pollyneuromyopathy, and he seems to be steadily improving, and I have recommended physical therapy, today we'll plan to place him back on pressure support of 14 and a PEEP of 8, FiO2 will remain at 45%. Patient remains on anticoagulation therapy for his pulmonary embolism. He remains on tube feeds receiving Nepro at 59 mL per hour. Hemodynamically he is stable. And I'm hoping at least we could give him another trial today of pressure support after resting him for few hours on pressure control mode of mechanical ventilation. Basic metabolic profile is normal today. Count is 4.1 hemoglobin is 8.1. C. diff screening is negative. Chest x-ray is basically about the same, continues to show bilateral infiltrates. Patient was reevaluated today on 08/28/21, remains in the ICU, intubated and mechanically ventilated. Yesterday the patient had a setback, while the patient was on pressure support mode of weaning, and he was doing fine, suddenly the patient was gagging on his tracheostomy tube, and small amount of secretions came out through his mouth, patient went on to develop worsening leak around the tracheostomy and he was getting worse clinically as I was watching the patient. Hence I had to paralyze the patient and put him back on Nimbex, and adjusted the tracheostomy and adjusted his neck to the point there was no cuff leak any further. The cuff was actually not holding any air in the tracheostomy, and I have contacted the surgeon to arrange for possibly tracheostomy change as soon as possible. I was able to stabilize the airway however the patient had to be sedated and paralyzed in order to avoid further cuff leak. Overnight the patient was kept on mechanical ventilation, he is now on volume control/assist- control mode of mechanical ventilation, he is on assist control rate of 24th of volume 450 FiO2 50% and PEEP of 12. I was able to cut down his FiO2 to 45%. Discussed again with the surgeon this morning the plan to revise his trach and this was done shortly after my discussion with the surgeon. The surgeon had to use a retractor to open up the wound and make it more exposed, he used cautery and subcutaneous tissue divided then he was able to visualize the tracheostomy and then the endotracheal tube was pulled out under direct vision and a #8 Shile y XLT tracheostomy tube was placed in the trachea. Now that the patient is having a more stable airway/tracheostomy, I plan to discontinue Nimbex, and I plan to go back into cutting down on sedation as much as possible, and possibly go back to weaning mode of mechanical ventilation hopefully in the next 24 hours. But I would definitely discontinue Nimbex now the airway seems to be more stable. This morning the patient is on propofol at 75-3 mcg/kg/h he is also on Nimbex, and IV fluid at 20 mL per hour. Tube feeding was placed on hold yesterday, may consider restarting the tube feeding today. Patient continued to have intermittent episodes of fevers yesterday, low-grade, and I recommended empirically starting the patient on Zosyn. Chest x-ray continues to show bilateral infiltrates, not much of a change director the last few days. Left lung seems to be more affected than the right lung. WBC count today is 5.6 hemoglobin is 9.4. electrolytes are normal renal profile is normal Reevaluated today on 08/29/20, patient remains in the ICU, intubated and mechanically ventilated. He is on assist control rate of 24 tidal volume 450 FiO2 45% PEEP of 12. Patient remains on propofol at 35 mcg/kg/m, he is also on fentanyl at 20 mcg/kg/h, and he is on IV fluid at KVO. His ABG today showed a pO2 of 87 pCO2 46 pH of 7.44. Patient underwent tracheostomy change yesterday by general surgery, and it seems to be functioning quite well. Patient remains on Nepro, not yet to goal, and the dose is being increased gradually. He is off Nimbex, and we are tapering his propofol and fentanyl and down, plan is to restart the patient on Precedex, and hopefully start some weaning trials probably again tomorrow. In spite of being on sedation, patient is arousable, he is actually awake, follows simple instructions, but he is noted to be profoundly weak. Asked x-ray is basically about the same showing bilateral infiltrates mostly right upper lobe and left lung. WBC count today is 6.1 hemog lobin is 9.9 electrolytes are normal, renal profile is normal Objective - Vital Signs Vital signs: Vital Signs Temp 99.2 F 08/29/21 12:00 Pulse 111 H 08/29/21 13:00 Resp 29 H 08/29/21 13:00 BP 102/54 08/29/21 13:00 Pulse Ox 93 L 08/29/21 13:00 Intake & Output 08/28/21 08/29/21 08/29/21 18:59 06:59 18:59 Intake Total 1340.152 3886.003 392.601 Output Total 3043 605 1015 Balance -1179.603 666.003 -622.399 Weight 113.8 kg 114.2 kg Intake: IV 340 240 40 Sodium Chloride 0.9% 1, 240 240 40 000 ml @ 20 mls/hr IV . Q24H [facility] Rx#:[id number] Intake, IV Titration 1421.397 863.003 328.601 Amount Cisatracurium 200 mg In 239.596 Sodium Chloride 0.9% 180 ml @ 1 MCG/KG/MIN 6.702 mls/hr IV .Q24H [facility] Rx#: [id number] Piperacillin-Tazobactam 3 100 100 .375 gm In Sodium Chloride 0.9% 100 ml @ 25 mls/hr IVPB Q8HR [facility] Rx# :[id number] fentaNYL (PF) 2,500 mcg 611.347 177.653 78.266 In Sodium Chloride 0.9% 200 ml @ 2 MCG/KG/HR 26. 308 mls/hr IV .[id number] [facility] Rx#:[id number] fentaNYL (PF). 1,000 mcg 100 In Sodium Chloride 0.9% 80 ml @ 0.5 MCG/KG/HR 5. 585 mls/hr IV .[id number] [facility] Rx#:[id number] propofoL 1,000 mg In 470.454 585.350 150.335 Empty Bag 1 bag @ Titrate IV .Q0M [facility] Rx#: [id number] Tube Feeding 12 168 12 Other 90 12 Output: Gastric Drainage 400 Urine 2640 605 1015 Estimated Blood Loss 3 Other: Voiding Method Indwelling Catheter Indwelling Catheter Indwelling Catheter # Bowel Movements 1 ABP, PAP, CO, CI - Last Documented Arterial Blood Pressure 120/59 - Exam Physical Exam: Revealed 31-year-old -[place] male, on mechanical ventilation, awake, follows instructions. He is on propofol and on fentanyl. And that is being tapered down to be discontinued. Head: Atraumatic, normocephalic. HEENT: Short obese neck. [Neck is supple.] [No neck masses.] [No thyromegaly.] [No JVD.] Tracheostomy is intact Chest: [Symmetrical chest expansion, fine crackles at the bases. Cardiac Exam: Distant S1 and S2, no S3 gallop, no murmur. Abdomen: [Obese, soft, nontender, no megaly, no rebound, no guarding. Extremities: No clubbing, trace of edema, no cyanosis. Neurological Exam: Awake, follows simple instructions but noted to be generally and profoundly weak. Psychiatric: Normal mood, blunt affect, follows simple instructions. Musculoskeletal: No deformities Skin: No rashes. - Labs CBC & Chem 7: 08/29/21 05:40 08/29/21 05:40 Labs: Abnormal Lab Results - Last 24 Hours (Table) 08/29/21 08/29/21 08/29/21 Range/Units 05:20 05:40 05:40 RBC 3.54 L (4.30-5.90) m/uL Hgb 9.9 L (13.0-17.5) gm/dL Hct 33.6 L (39.0-53.0) % MCHC 29.6 L (31.0-37.0) g/dL RDW 18.7 H (11.5-15.5) % Lymphocytes # 0.6 L (1.0-4.8) k/uL ABG pCO2 46 H (35-45) mmHg ABG HCO3 31 H (21-25) mmol/L ABG O2 Saturation 97.3 H (94-97) % Sodium 134 L (137-145) mmol/L BUN 22 H (9-20) mg/dL Glucose 102 H (74-99) mg/dL POC Glucose (mg/dL) (75-99) mg/dL Total Protein 5.7 L (6.3-8.2) g/dL Albumin 2.9 L (3.5-5.0) g/dL 08/29/21 Range/Units 11:40 RBC (4.30-5.90) m/uL Hgb (13.0-17.5) gm/dL Hct (39.0-53.0) % MCHC (31.0-37.0) g/dL RDW (11.5-15.5) % Lymphocytes # (1.0-4.8) k/uL ABG pCO2 (35-45) mmHg ABG HCO3 (21-25) mmol/L ABG O2 Saturation (94-97) % Sodium (137-145) mmol/L BUN (9-20) mg/dL Glucose (74-99) mg/dL POC Glucose (mg/dL) 104 H (75-99) mg/dL Total Protein (6.3-8.2) g/dL Albumin (3.5-5.0) g/dL Microbiology - Last 24 Hours (Table) 08/26/21 11:21 Blood Culture - Preliminary Blood No Growth after 72 hours 08/26/21 11:00 Blood Culture - Preliminary Blood No Growth after 72 hours 08/25/21 15:50 Gram Stain - Final Sputum Sputum Culture - Final Assessment and Plan Assessment: Impression: Acute hypoxic respiratory failure secondary to COVID-19 pneumonia, intubated on August 06, tracheostomy August 14, on pressure support mode of mechanical ventilation August 26. And also on pressure support mode of mechanical ventilation on August 27, however the patient developed significant air leak from the tracheostomy, required placing the patient back on Nimbex, and on fentanyl as well as propofol. Today the patient is already off Nimbex, and his fentanyl and propofol are being discontinued. We will likely place the patient on Precedex was both are off ARDS secondary to COVID-19 pneumonia, improving. Elevated inflammatory markers secondary to COVID-19 pneumonia, improving. Acute pulmonary embolism secondary to COVID-19 pneumonia we will restart the patient back on Eliquis. Elevated liver enzymes secondary to COVID-19 pneumonia and infection, improved. Morbid obesity, BMI of 43.1. Benign essential hypertension. Acute kidney injury/resolved.. Status post tracheostomy because of failure to wean. Status post revision of tracheostomy on 08/28/20 one by general surgery. 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 Plan to give the patient weaning trials again tomorrow probably on pressure support again now the airway seems to be more stable. Taper and discontinue fentanyl and propofol. Place patient on Precedex once both are off. Daily weaning trials to be started either later today or tomorrow. Continue Zosyn empirically. Continue Decadron Restart Eliquis Updated his on his condition today. Resume enteral feeding. Try to reach goal. Continue GI and DVT prophylaxis. Patient remains critically ill, we'll continue to monitor closely. Critical care time is over 30 minutes Time with Patient: Greater than 30
--- NOTE | 2021-08-29 15:17 | P.PN ---
Subjective Progress Note Date: 08/29/21 CHIEF COMPLAINT: COVID-19 pneumonia HISTORY OF PRESENT ILLNESS: Patient remains in the ICU on mechanical ventilation. Patient is status post tracheostomy revision with Dr. coelho. Patient is awake and alert. He has been undergoing weaning trials. He is status post tracheostomy placement on 08/14/21. Patient had 2 attempts for PEG tube placement that have been unsuccessful. He currently has NG tube in place to receive tube feedings. Afebrile WBC 6.1 PHYSICAL EXAM: VITAL SIGNS: Reviewed. GENERAL: Well-developed in no acute distress. HEENT: No sclera icterus. Extraocular movements grossly intact. Moist buccal mucosa. Head is atraumatic, normocephalic. Tracheostomy site clean dry and i ntact ABDOMEN: Soft NEUROLOGIC: sedated ASSESSMENT: 1. Acute hypoxic respiratory failure due to COVID-19 pneumonia with prolonged mechanical intubation. Status post tracheostomy placement and revision 2. Severe protein calorie malnutrition PLAN: -Continue ICU management -Continue supportive care Physician Respiratory Support Technician note has been reviewed by physician. Signing provider agrees with the documented findings, assessment, and plan of care. Objective - Vital Signs Vital signs: Vital Signs Temp 99.2 F 08/29/21 12:00 Pulse 112 H 08/29/21 14:30 Resp 29 H 08/29/21 14:30 BP 73/45 08/29/21 14:30 Pulse Ox 94 L 08/29/21 14:30 Intake & Output 08/28/21 08/29/21 08/29/21 18:59 06:59 18:59 Intake Total 6435.707 6091.003 431.349 Output Total 3043 605 1055 Balance -1179.603 666.003 -623.651 Weight 113.8 kg 114.2 kg Intake: IV 340 240 60 Sodium Chloride 0.9% 1, 240 240 60 000 ml @ 20 mls/hr IV . Q24H [facility] Rx#:[id number] Intake, IV Titration 1421.397 863.003 347.349 Amount Cisatracurium 200 mg In 239.596 Sodium Chloride 0.9% 180 ml @ 1 MCG/KG/MIN 6.702 mls/hr IV .Q24H [facility] Rx#: [id number] Dexmedetomidine/0.9% NaCl 18.748 (Pmx) 400 mcg In Empty Bag 1 bag @ 0.2 MCG/KG/HR 5.71 mls/hr IV .[id number] [facility] Rx#:[id number] Piperacillin-Tazobactam 3 100 100 .375 gm In Sodium Chloride 0.9% 100 ml @ 25 mls/hr IVPB Q8HR [facility] Rx# :[id number] fentaNYL (PF) 2,500 mcg 611.347 177.653 78.266 In Sodium Chloride 0.9% 200 ml @ 2 MCG/KG/HR 26. 308 mls/hr IV .[id number] [facility] Rx#:[id number] fentaNYL (PF). 1,000 mcg 100 In Sodium Chloride 0.9% 80 ml @ 0.5 MCG/KG/HR 5. 585 mls/hr IV .[id number] [facility] Rx#:[id number] propofoL 1,000 mg In 470.454 585.350 150.335 Empty Bag 1 bag @ Titrate IV .Q0M [facility] Rx#: [id number] Tube Feeding 12 168 12 Other 90 12 Output: Gastric Drainage 400 Urine 2640 605 1055 Estimated Blood Loss 3 Other: Voiding Method Indwelling Catheter Indwelling Catheter Indwelling Catheter # Bowel Movements 1 1 ABP, PAP, CO, CI - Last Documented Arterial Blood Pressure 120/59 - Labs CBC & Chem 7: 08/29/21 05:40 08/29/21 05:40 Labs: Abnormal Lab Results - Last 24 Hours (Table) 08/29/21 08/29/21 08/29/21 Range/Units 05:20 05:40 05:40 RBC 3.54 L (4.30-5.90) m/uL Hgb 9.9 L (13.0-17.5) gm/dL Hct 33.6 L (39.0-53.0) % MCHC 29.6 L (31.0-37.0) g/dL RDW 18.7 H (11.5-15.5) % Lymphocytes # 0.6 L (1.0-4.8) k/uL ABG pCO2 46 H (35-45) mmHg ABG HCO3 31 H (21-25) mmol/L ABG O2 Saturation 97.3 H (94-97) % Sodium 134 L (137-145) mmol/L BUN 22 H (9-20) mg/dL Glucose 102 H (74-99) mg/dL POC Glucose (mg/dL) (75-99) mg/dL Total Protein 5.7 L (6.3-8.2) g/dL Albumin 2.9 L (3.5-5.0) g/dL 08/29/21 Range/Units 11:40 RBC (4.30-5.90) m/uL Hgb (13.0-17.5) gm/dL Hct (39.0-53.0) % MCHC (31.0-37.0) g/dL RDW (11.5-15.5) % Lymphocytes # (1.0-4.8) k/uL ABG pCO2 (35-45) mmHg ABG HCO3 (21-25) mmol/L ABG O2 Saturation (94-97) % Sodium (137-145) mmol/L BUN (9-20) mg/dL Glucose (74-99) mg/dL POC Glucose (mg/dL) 104 H (75-99) mg/dL Total Protein (6.3-8.2) g/dL Albumin (3.5-5.0) g/dL Microbiology - Last 24 Hours (Table) 08/26/21 11:21 Blood Culture - Preliminary Blood No Growth after 72 hours 08/26/21 11:00 Blood Culture - Preliminary Blood No Growth after 72 hours
[2021-08-29 17:41] LABS: Glucose,Whole Blood 112 mg/dL (75-99)
[2021-08-29] MEDS: SODIUM CHLORIDE 0.9% 1,000 ML IV SCH (20:16)
[2021-08-29] MEDS: APIXABAN 5 MG TAB PO SCH (20:26)
--- NOTE | 2021-08-29 21:22 | P.PN ---
Subjective Progress Note Date: 08/27/21 Principal diagnosis: Acute hypoxemic respiratory failure secondary to Covid pneumonia This is a pleasant 31 years old -[place] man with no significant past medical history presents with dyspnea which started yesterday associated with fever and coughing. Patient tested positive for covid earlier on Thursday after he felt with fever and cough on Thursday but at that time he was not dyspneic. He denies chest pain or abdominal pain but he has diarrhea on and off. No vomi ting. He is saturating 89% on 6 L oxygen via nasal cannula, afebrile. Tachypneic with a breathing rate at 23. CBC, is unremarkable. INR is normal at 1.0. Sodium is 1:30, creatinine normal at 1.1, glucose 103. AST is mildly elevated 106 and ALT mildly elevated 106. Elevated lactate dehydrogenase 2600 and C-reactive protein 20.3. Cholelithiasis positive EKG shows sinus tachycardia and [address]-T changes Chest x-ray showing bilateral infiltrates 08/01/2021 Patient sitting at bedside using 50 L of oxygen via nonrebreather. Reports slight improvement in his breathing and his chest x-ray showing somewhat improvement in that area should on both sides. He has low-grade fever today at 200. Blood pressure is stable. D-dimer is 1.87. BMP is unremarkable, liver enzymes slightly trending down. LDH slightly down at 2437 and slightly decreased and C-reactive protein 16.7. C BC and pro-calcitonin are pending Sputum and blood culture are still pending He remains on multiple vitamins, Baricitinib, dexamethasone and normal saline at 75 mL/h. Also he is on Lovenox. Norvasc is added for blood pressure control also we will add metoprolol Subjective: 08/05/21 patient still with dyspnea requiring BiPAP most of the time. He is developing fever of 101.7 today. Blood pressure 157/91. He has leukocytosis 19.1.liver enzymes Are the same. LDH elevated 2935 and C- reactive protein 18.2 his still on multiple vitamins, Baricitinib, dexamethasone and normal saline at 50 mL/h. Also he is on Lovenox therapeutic dose after his d-dimer yesterday. 08/06/2021 Patient remains on BiPAP needing higher pressures 14/8 and FiO2 of 100%. Also history of chronic fever around 100 and pro-calcitonin elevated at 0.40. This left leukocytosis around 22, LDH and C-reactive protein still elevated. D- dimer is trending down to 8.5 and CTA of the chest today showing negative for PE but bilateral groundglass opacity. Sputum culture 2 is negative. Urine analysis is negative for infection Today patient SWITCHED to heparin drip. Also he was started on Zosyn. Also dexamethasone 6 mg daily and normal saline at 50 mL per hour. Discontinue Baricitinib per pulmonary 08/07/2021 Patient respiratory status got worse and eventually patient got intubated while he is in the ICU. Pulmonary/critical care team following the patient closely and help with vent management. He has a fever of 100. Breathing rate around 29. Blood pressure is stable. WBC down to 19 K, Patient is acidotic with pH of 7.2, pCO2 of 57 which is low and high pO2 of 99. Chest x-ray showed increasing bilateral infiltrate and left lower lobe pneumonia. Repeat sputum culture is pending. First 2 samples were negative He remains on Zosyn, dexamethasone, normal saline at 50 mL per hour , heparin drip, multiple vitamins 08/08/2021 Patient remains in the ICU in critical condition and generally he is not doing well. I'll intubated and on mechanical ventilation with the pulmonary/critical care team R following closely He is hemodynamically stable, mildly tachycardic. WBC improving down to 15 but also hemoglobin dropped to 11.9 down to 9.8. And while he continued on heparin drip for suspected thrombosis secondary to his Covid infection and high d-dimer will increase his for chronic 40 mg daily and to twice a day. Patient FiO2 was lowered to 70%, he did not tolerate the prone position. He has no fever but tachypneic at 38 Today his creatinine went up 1.0 up to 2.8 with mild hyperkalemia however he is making good urine output with yellow urine in his Lees catheter bag nephrology team were consulted and bicarb drip was started for acidosis with pH of 7.22. He remains on Zosyn, dexamethasone, vitamin C, D and zinc. 08/09/2021 Remains in the ICU in critical condition. He continue on mechanical ventilation with pulmonary/critical care team on the consult. He still significantly tachypneic at 38 and leukocytosis. Possibly just at that time level 18 to 20, prone position was tried but patient could not tolerate it so avoided now. Labs showing improvement leukocytosis 12 K, hemoglobin 9.2, FiO2 lower to 55%. Creatinine improved slightly to 2.2 after starting normal saline at 75 mL/h. Chest x-ray showing the same findings of bilateral pneumonia. Dexamethasone was increased to twice daily today, normal saline 75 mL/h started. Well continued on heparin drip, Zosyn and multiple vitamins 08/10/2021 Patient condition did not change much from yesterday. He remains intubation only FiO2 lower to 55 from 70% and PEEP down to 18. With pulmonary/critical care team following the case closely. This remains tachycardia. No need for pressors. He hasn't been fever for the last 48 hours. D-dimer trending down to 1.7. WBC down to 11.8. Hemoglobin down to 8.9. Inflammatory markers improved to 114 and 19.9.. Creatinine is stable from yesterday at 2.2. Chest x-ray showing similar infiltrate both sides more on the left side. He remains on Zosyn, multiple vitamins, dexamethasone, normal saline, heparin drip. 08/11/2021 Patient remains in the ICU in critical condition. He is currently on mechanical ventilation significantly tachypneic around 38. With the floor at about 60 L/m. He is FiO2 of 60% and PEEP of 20. With pulmonary/critical care team opened and vent management. Labs showing WBC 12.6, hemoglobin slightly trending to 7.8. Lactate dehydrogenase 1245 and C-reactive protein down to 13.6. Creatinine is 2.0 Is on Zosyn, dexamethasone, normal sinus 75, heparin drip. 08/12/2021 Patient is currently in the intensive care unit. Remains on mechanical ventilator due to acute hypoxemic respiratory failure with Covid pneumonia Currently on before meals 375, FiO2 60% and PEEP of 20. Patient is on Nimbex drip and heparin subcu. Patient is also on fentanyl. Laboratory data showed WBC 15 hemoglobin 7.8 hematocrit 26.1 and platelets 433 And d-dimer is 1.68 sodium 140 potassium 5.3 chloride 101 bicarb is 25 BUN 16 creatinine 1.73. The LDH 1160. Chest x-ray showed findings similar to prior exam. Correlate for pneumonia, edema, ARDS. 08/13/2021 Patient is currently in the intensive care unit. Remains on mechanical ventilator. Assist control 375 and FiO2 at 50% and PEEP of 20. Currently being continued on Nimbex and fentanyl drip. Patient is being converted on IV heparin due to pulmonary embolism. Patient is being controlled on antibiotic Levaquin and Zosyn. Patient is scheduled for vacation and PEG tube placement tomorrow. Laboratory data showed WBC 30.0, hemoglobin 9.5 platelets 634 D-dimer 2.68, sodium 140 potassium 5.6 chloride 108 BUN 51 and creatinine 1.61, AST 75 ALT 193 Patient is being continued on dexamethasone 6 mg IV twice a day. Pulmonary and nephrology and general surgery is on board. 08/14/2021 Patient is currently in the MICU on mechanical ventilator. His control with tidal volume 375, FiO2 55%, PEEP of 20. Patient is on Nimbex drip and propofol and fentanyl drip as well as heparin drip due to pulmonary embolism. Patient is scheduled for tracheostomy and PEG tube placement. Remains on antibiotics in the form of Levaquin and Zosyn. Laboratory data showed WBC 17.5 hemoglobin 7.7 and platelets 462 Sodium 139 potassium 5.2 chloride 108 BUN 51 and creatinine 1.77 Albumin 2.7 and total protein 5.5. Tube feedings on hold for scheduled surgical procedure. Pulmonary, nephrology and general surgery is on board. 08/15/2021 Patient is currently in the MICU. Patient had tracheostomy and is currently remains mechanical ventilator. FiO2 55% and PEEP of 20. Patient is also on propofol, Nimbex and fentanyl drip. Also on heparin IV due to pulmonary embolism. NG tube was taken out prior to tracheostomy. Laboratory data showed WBC 15.6 hemoglobin 7.4 platelets 404 and D-dimer 3.76 Sodium 137 potassium 4.9 chloride 105 bicarb is 25 BUN 49 and creatinine 1.59 Repeat chest x-ray today showed diffuse bilateral infiltrates. Patient remains dexamethasone, antibiotics no cough Levaquin and Zosyn. Pulmonary and nephrology and general surgery is on board. 08/26/2021 Patient was admitted to the hospital due to COVID-19 pneumonia and acute hypoxic respiratory failure. Patient was also found have acute PE. Currently patient is status post tracheostomy and remains on mechanical ventilator. Patient is in the MICU currently. on pressure control 12 and FiO2 40% and PEEP of 10. Patient is awake alert and able to follow simple commands. Patient did have T- max 101 last night. Sputum cultures were sent. Chest x-ray showed stable chest. Patient is being continued on Lasix 40 mg IV daily, ascorbic acid, vitamin D3 and anticoagulation the form of Eliquis. Heart rate is controlled with metoprolol. Pulmonary and nephrology and surgery is on board. Patient is tolerating tube feeding. 08/27/2021 Patient eventually MICU. On mechanical ventilator via trach. Patient is tolerating pressure support. Chest x-ray showed bilateral infiltrates. Patient is being continued on Precedex and not on any sedation. Patient does respond to verbal stimuli and able to open his eyes and follow simple commands. on NG tube feeding. Patient is being continued on anticoagulation with Eliquis for pulmonary embolism. Not on pressor support. Laboratory data showed WBC 4.1 hemoglobin 8.1 and platelets 198 and BUN 27 creatinine 0.81 PT OT is following. Current medications reviewed. Objective - Vital Signs Vital signs: Vital Signs Temp 100.3 F H 08/27/21 08:00 Pulse 137 H 08/27/21 15:00 Resp 38 H 08/27/21 15:00 BP 149/90 08/27/21 15:00 Pulse Ox 100 08/27/21 15:00 Intake & Output 08/26/21 08/27/21 08/27/21 18:59 06:59 18:59 Intake Total 1272 1529.529 1240.434 Output Total 2565 465 2510 Balance -1293 542.627 -1471.566 Weight 113.8 kg 111.7 kg Intake: IV 240 220 160 Sodium Chloride 0.9% 1, 240 220 160 000 ml @ 20 mls/hr IV . Q24H [facility] Rx#:[id number] Intake, IV Titration 300 190.627 248.434 Amount Dexmedetomidine/0.9% NaCl 300 190.627 242.514 (Pmx) 400 mcg In Empty Bag 1 bag @ 0.7 MCG/KG/HR 21.158 mls/hr IV .Q4H44M [facility] Rx#:[id number] propofoL 1,000 mg In 5.920 Empty Bag 1 bag @ Titrate IV .Q0M [facility] Rx#: [id number] Tube Feeding 492 507 390 Other 240 90 240 Output: Urine 2565 465 2510 Other: Voiding Method Indwelling Catheter Indwelling Catheter Indwelling Catheter # Bowel Movements 1 1 ABP, PAP, CO, CI - Last Documented Arterial Blood Pressure 120/59 - Exam - Exam -GENERAL: The patient is status post tracheostomy and on mechanical ventilator. Awake alert and oriented. Follows simple commands. HEENT: Pupils are round and equally reacting to light. EOMI. No scleral icterus. No conjunctival pallor. Normocephalic, atraumatic. No pharyngeal erythema. No thyromegaly. CARDIOVASCULAR: S1 and S2 present. No murmurs, rubs, or gallops. -PULMONARY: Chest is clear to auscultation, no wheezing, tachypnea ABDOMEN: Soft, nontender, nondistended, normoactive bowel sounds. No palpable organomegaly. Bilateral coarse breath sounds. Tracheostomy in place. On mechanical ventilator. MUSCULOSKELETAL: No joint swelling or deformity. EXTREMITIES: No cyanosis, clubbing, or pedal edema. NEUROLOGICAL: Gross neurological examination did not reveal any focal deficits. SKIN: No rashes. No petechiae - Labs CBC & Chem 7: 08/29/21 05:40 08/29/21 05:40 Labs: Abnormal Lab Results - Last 24 Hours (Table) 08/26/21 08/26/21 08/26/21 Range/Units 11:00 17:43 23:31 RBC (4.30-5.90) m/uL Hgb (13.0-17.5) gm/dL Hct (39.0-53.0) % MCHC (31.0-37.0) g/dL RDW (11.5-15.5) % Lymphocytes # (1.0-4.8) k/uL Carbon Dioxide (22-30) mmol/L BUN (9-20) mg/dL Glucose (74-99) mg/dL POC Glucose (mg/dL) 123 H 112 H (75-99) mg/dL Procalcitonin 0.25 H (0.02-0.09) ng/mL 08/27/21 08/27/21 08/27/21 Range/Units 04:50 04:50 11:26 RBC 2.93 L (4.30-5.90) m/uL Hgb 8.1 L (13.0-17.5) gm/dL Hct 27.3 L (39.0-53.0) % MCHC 29.8 L (31.0-37.0) g/dL RDW 18.6 H (11.5-15.5) % Lymphocytes # 0.7 L (1.0-4.8) k/uL Carbon Dioxide 32 H (22-30) mmol/L BUN 27 H (9-20) mg/dL Glucose 104 H (74-99) mg/dL POC Glucose (mg/dL) 104 H (75-99) mg/dL Procalcitonin (0.02-0.09) ng/mL Microbiology - Last 24 Hours (Table) 08/26/21 11:21 Blood Culture - Preliminary Blood No Growth after 24 hours 08/26/21 11:00 Blood Culture - Preliminary Blood No Growth after 24 hours 08/25/21 15:50 Gram Stain - Preliminary Sputum Sputum Culture - Preliminary Assessment and Plan Assessment: Acute bilateral Covid pneumonia, with suspected bacterial superinfection mainly in the left lower lobe Acute hypoxic respiratory failure, remains on mechanical ventilation. s/p traheostomy ARDS secondary to COOVID Pneumonia Critical illness polyneuromyopathy Right lung PE was on IV heparin. changed to Eliquis Elevated inflammatory markers Acute kidney injury secondary to ATN with Covid pneumonia. Resolved. Hypertension Hyperkalemia secondary to acute kidney injury. improved. Anemia Metabolic acidosis. improved. Elevated d-dimer Morbid Obesity with BMI of 49.8 Plan: This is a pleasant 31 years old male who presents with bilateral Covid pneumonia and hypoxia. Patient remains on mechanical ventilator..s/p traheostomy. Completed dexamethasone course . Continue with vitamin C, vitamin D and zinc. Discontinue Baricitinib . Continue with Zosyn and Levaquin. Was on heparin drip for acute PE. Changed to increase. Continued on normal saline KVO. Patient is scheduled for tracheostomy. Tolerating tube feeding NG tube. Pulmonary and nephrology is on board. Monitor creatinine. Pulmonary/critical care team is following. Labs and medication were reviewed. Monitor lytes and vitals. DVT and GI prophylaxis. PT/OT , Further recommendations depends on the clinical course of the patient DVT prophylaxis: Eliquis GI Prophylaxis: Protonix Time with Patient: Greater than 30
--- NOTE | 2021-08-29 21:25 | P.PN ---
Subjective Progress Note Date: 08/29/21 Principal diagnosis: Acute hypoxemic respiratory failure secondary to Covid pneumonia This is a pleasant 31 years old -[place] man with no significant past medical history presents with dyspnea which started yesterday associated with fever and coughing. Patient tested positive for covid earlier on Thursday after he felt with fever and cough on Thursday but at that time he was not dyspneic. He denies chest pain or abdominal pain but he has diarrhea on and off. No vomi ting. He is saturating 89% on 6 L oxygen via nasal cannula, afebrile. Tachypneic with a breathing rate at 23. CBC, is unremarkable. INR is normal at 1.0. Sodium is 1:30, creatinine normal at 1.1, glucose 103. AST is mildly elevated 106 and ALT mildly elevated 106. Elevated lactate dehydrogenase 2600 and C-reactive protein 20.3. Cholelithiasis positive EKG shows sinus tachycardia and [address]-T changes Chest x-ray showing bilateral infiltrates 08/01/2021 Patient sitting at bedside using 50 L of oxygen via nonrebreather. Reports slight improvement in his breathing and his chest x-ray showing somewhat improvement in that area should on both sides. He has low-grade fever today at 200. Blood pressure is stable. D-dimer is 1.87. BMP is unremarkable, liver enzymes slightly trending down. LDH slightly down at 2437 and slightly decreased and C-reactive protein 16.7. C BC and pro-calcitonin are pending Sputum and blood culture are still pending He remains on multiple vitamins, Baricitinib, dexamethasone and normal saline at 75 mL/h. Also he is on Lovenox. Norvasc is added for blood pressure control also we will add metoprolol Subjective: 08/05/21 patient still with dyspnea requiring BiPAP most of the time. He is developing fever of 101.7 today. Blood pressure 157/91. He has leukocytosis 19.1.liver enzymes Are the same. LDH elevated 2935 and C- reactive protein 18.2 his still on multiple vitamins, Baricitinib, dexamethasone and normal saline at 50 mL/h. Also he is on Lovenox therapeutic dose after his d-dimer yesterday. 08/06/2021 Patient remains on BiPAP needing higher pressures 14/8 and FiO2 of 100%. Also history of chronic fever around 100 and pro-calcitonin elevated at 0.40. This left leukocytosis around 22, LDH and C-reactive protein still elevated. D- dimer is trending down to 8.5 and CTA of the chest today showing negative for PE but bilateral groundglass opacity. Sputum culture 2 is negative. Urine analysis is negative for infection Today patient SWITCHED to heparin drip. Also he was started on Zosyn. Also dexamethasone 6 mg daily and normal saline at 50 mL per hour. Discontinue Baricitinib per pulmonary 08/07/2021 Patient respiratory status got worse and eventually patient got intubated while he is in the ICU. Pulmonary/critical care team following the patient closely and help with vent management. He has a fever of 100. Breathing rate around 29. Blood pressure is stable. WBC down to 19 K, Patient is acidotic with pH of 7.2, pCO2 of 57 which is low and high pO2 of 99. Chest x-ray showed increasing bilateral infiltrate and left lower lobe pneumonia. Repeat sputum culture is pending. First 2 samples were negative He remains on Zosyn, dexamethasone, normal saline at 50 mL per hour , heparin drip, multiple vitamins 08/08/2021 Patient remains in the ICU in critical condition and generally he is not doing well. I'll intubated and on mechanical ventilation with the pulmonary/critical care team R following closely He is hemodynamically stable, mildly tachycardic. WBC improving down to 15 but also hemoglobin dropped to 11.9 down to 9.8. And while he continued on heparin drip for suspected thrombosis secondary to his Covid infection and high d-dimer will increase his for chronic 40 mg daily and to twice a day. Patient FiO2 was lowered to 70%, he did not tolerate the prone position. He has no fever but tachypneic at 38 Today his creatinine went up 1.0 up to 2.8 with mild hyperkalemia however he is making good urine output with yellow urine in his Lees catheter bag nephrology team were consulted and bicarb drip was started for acidosis with pH of 7.22. He remains on Zosyn, dexamethasone, vitamin C, D and zinc. 08/09/2021 Remains in the ICU in critical condition. He continue on mechanical ventilation with pulmonary/critical care team on the consult. He still significantly tachypneic at 38 and leukocytosis. Possibly just at that time level 18 to 20, prone position was tried but patient could not tolerate it so avoided now. Labs showing improvement leukocytosis 12 K, hemoglobin 9.2, FiO2 lower to 55%. Creatinine improved slightly to 2.2 after starting normal saline at 75 mL/h. Chest x-ray showing the same findings of bilateral pneumonia. Dexamethasone was increased to twice daily today, normal saline 75 mL/h started. Well continued on heparin drip, Zosyn and multiple vitamins 08/10/2021 Patient condition did not change much from yesterday. He remains intubation only FiO2 lower to 55 from 70% and PEEP down to 18. With pulmonary/critical care team following the case closely. This remains tachycardia. No need for pressors. He hasn't been fever for the last 48 hours. D-dimer trending down to 1.7. WBC down to 11.8. Hemoglobin down to 8.9. Inflammatory markers improved to 114 and 19.9.. Creatinine is stable from yesterday at 2.2. Chest x-ray showing similar infiltrate both sides more on the left side. He remains on Zosyn, multiple vitamins, dexamethasone, normal saline, heparin drip. 08/11/2021 Patient remains in the ICU in critical condition. He is currently on mechanical ventilation significantly tachypneic around 38. With the floor at about 60 L/m. He is FiO2 of 60% and PEEP of 20. With pulmonary/critical care team opened and vent management. Labs showing WBC 12.6, hemoglobin slightly trending to 7.8. Lactate dehydrogenase 1245 and C-reactive protein down to 13.6. Creatinine is 2.0 Is on Zosyn, dexamethasone, normal sinus 75, heparin drip. 08/12/2021 Patient is currently in the intensive care unit. Remains on mechanical ventilator due to acute hypoxemic respiratory failure with Covid pneumonia Currently on before meals 375, FiO2 60% and PEEP of 20. Patient is on Nimbex drip and heparin subcu. Patient is also on fentanyl. Laboratory data showed WBC 15 hemoglobin 7.8 hematocrit 26.1 and platelets 433 And d-dimer is 1.68 sodium 140 potassium 5.3 chloride 101 bicarb is 25 BUN 16 creatinine 1.73. The LDH 1160. Chest x-ray showed findings similar to prior exam. Correlate for pneumonia, edema, ARDS. 08/13/2021 Patient is currently in the intensive care unit. Remains on mechanical ventilator. Assist control 375 and FiO2 at 50% and PEEP of 20. Currently being continued on Nimbex and fentanyl drip. Patient is being converted on IV heparin due to pulmonary embolism. Patient is being controlled on antibiotic Levaquin and Zosyn. Patient is scheduled for vacation and PEG tube placement tomorrow. Laboratory data showed WBC 30.0, hemoglobin 9.5 platelets 634 D-dimer 2.68, sodium 140 potassium 5.6 chloride 108 BUN 51 and creatinine 1.61, AST 75 ALT 193 Patient is being continued on dexamethasone 6 mg IV twice a day. Pulmonary and nephrology and general surgery is on board. 08/14/2021 Patient is currently in the MICU on mechanical ventilator. His control with tidal volume 375, FiO2 55%, PEEP of 20. Patient is on Nimbex drip and propofol and fentanyl drip as well as heparin drip due to pulmonary embolism. Patient is scheduled for tracheostomy and PEG tube placement. Remains on antibiotics in the form of Levaquin and Zosyn. Laboratory data showed WBC 17.5 hemoglobin 7.7 and platelets 462 Sodium 139 potassium 5.2 chloride 108 BUN 51 and creatinine 1.77 Albumin 2.7 and total protein 5.5. Tube feedings on hold for scheduled surgical procedure. Pulmonary, nephrology and general surgery is on board. 08/15/2021 Patient is currently in the MICU. Patient had tracheostomy and is currently remains mechanical ventilator. FiO2 55% and PEEP of 20. Patient is also on propofol, Nimbex and fentanyl drip. Also on heparin IV due to pulmonary embolism. NG tube was taken out prior to tracheostomy. Laboratory data showed WBC 15.6 hemoglobin 7.4 platelets 404 and D-dimer 3.76 Sodium 137 potassium 4.9 chloride 105 bicarb is 25 BUN 49 and creatinine 1.59 Repeat chest x-ray today showed diffuse bilateral infiltrates. Patient remains dexamethasone, antibiotics no cough Levaquin and Zosyn. Pulmonary and nephrology and general surgery is on board. 08/26/2021 Patient was admitted to the hospital due to COVID-19 pneumonia and acute hypoxic respiratory failure. Patient was also found have acute PE. Currently patient is status post tracheostomy and remains on mechanical ventilator. Patient is in the MICU currently. on pressure control 12 and FiO2 40% and PEEP of 10. Patient is awake alert and able to follow simple commands. Patient did have T- max 101 last night. Sputum cultures were sent. Chest x-ray showed stable chest. Patient is being continued on Lasix 40 mg IV daily, ascorbic acid, vitamin D3 and anticoagulation the form of Eliquis. Heart rate is controlled with metoprolol. Pulmonary and nephrology and surgery is on board. Patient is tolerating tube feeding. 08/27/2021 Patient eventually MICU. On mechanical ventilator via trach. Patient is tolerating pressure support. Chest x-ray showed bilateral infiltrates. Patient is being continued on Precedex and not on any sedation. Patient does respond to verbal stimuli and able to open his eyes and follow simple commands. on NG tube feeding. Patient is being continued on anticoagulation with Eliquis for pulmonary embolism. Not on pressor support. Laboratory data showed WBC 4.1 hemoglobin 8.1 and platelets 198 and BUN 27 creatinine 0.81 PT OT is following. 08/28/2021 Patient remains in the MICU. Currently on mechanical ventilator via trach tube. Tolerating NG tube feeding. Awake alert and able to follow simple commands. Tracheostomy tube was adjusted by pulmonary team. Patient was changed to assist control with tidal volume 450, FiO2 at 50% and PEEP of 12. Chest x-ray showed bilateral infiltrates not much change from yesterday. Patient has been afebrile. PT OT is following. Lab data showed WBC 5.6 hemoglobin 9.4 and platelets 279 BUN 23 and creatinine 0.72 bicarb 29 potassium 3.9 and albumin 3.0 08/29/2021 Patient is in the MICU. On mechanical ventilator. Awake alert and follows simple commands. Assist control with tidal volume 450, FiO2 45% and PEEP of 12. Patient underwent tracheostomy change yesterday by general surgery. Current tube feeding. Patient is off Nimbex and propofol and fentanyl is being tapered off. Patient has been very weak and possible critical care illness only neuromyopathy is being considered. Laboratory data showed WBC 6.1 hemoglobin 9.9 platelets 311 Sodium 134 potassium 3.8 chloride 98 BUN 22 and creatinine 0.85 and albumin 2.9 Pulmonary and general surgery is on board. Current medications reviewed. Objective - Vital Signs Vital signs: Vital Signs Temp 99.0 F 08/29/21 16:00 Pulse 121 H 08/29/21 19:00 Resp 28 H 08/29/21 19:00 BP 95/53 08/29/21 19:00 Pulse Ox 95 08/29/21 19:00 Intake & Output 08/29/21 08/29/21 08/30/21 06:59 18:59 06:59 Intake Total 1271.003 979.349 Output Total 605 1295 Balance 666.003 -315.651 Weight 114.2 kg Intake: IV 240 240 Sodium Chloride 0.9% 1, 240 240 000 ml @ 20 mls/hr IV . Q24H [facility] Rx#:[id number] Intake, IV Titration 863.003 347.349 Amount Dexmedetomidine/0.9% NaCl 18.748 (Pmx) 400 mcg In Empty Bag 1 bag @ 0.2 MCG/KG/HR 5.71 mls/hr IV .[id number] [facility] Rx#:[id number] Piperacillin-Tazobactam 3 100 .375 gm In Sodium Chloride 0.9% 100 ml @ 25 mls/hr IVPB Q8HR [facility] Rx# :[id number] fentaNYL (PF) 2,500 mcg 177.653 78.266 In Sodium Chloride 0.9% 200 ml @ 2 MCG/KG/HR 26. 308 mls/hr IV .[id number] [facility] Rx#:[id number] fentaNYL (PF). 1,000 mcg 100 In Sodium Chloride 0.9% 80 ml @ 0.5 MCG/KG/HR 5. 585 mls/hr IV .[id number] [facility] Rx#:[id number] propofoL 1,000 mg In 585.350 150.335 Empty Bag 1 bag @ Titrate IV .Q0M [facility] Rx#: [id number] Tube Feeding 168 132 Other 260 Output: Urine 605 1295 Other: Voiding Method Indwelling Catheter Indwelling Catheter # Bowel Movements 1 ABP, PAP, CO, CI - Last Documented Arterial Blood Pressure 120/59 - Exam - Exam -GENERAL: The patient is status post tracheostomy and on mechanical ventilator. Awake alert and oriented. Follows simple commands. HEENT: Pupils are round and equally reacting to light. EOMI. No scleral icterus. No conjunctival pallor. Normocephalic, atraumatic. No pharyngeal erythema. No thyromegaly. CARDIOVASCULAR: S1 and S2 present. No murmurs, rubs, or gallops. -PULMONARY: Chest is clear to auscultation, no wheezing, tachypnea ABDOMEN: Soft, nontender, nondistended, normoactive bowel sounds. No palpable organomegaly. Bilateral coarse breath sounds. Tracheostomy in place. On mechanical ventilator. MUSCULOSKELETAL: No joint swelling or deformity. EXTREMITIES: No cyanosis, clubbing, or pedal edema. NEUROLOGICAL: Gross neurological examination did not reveal any focal deficits. SKIN: No rashes. No petechiae - Labs CBC & Chem 7: 08/29/21 05:40 08/29/21 05:40 Labs: Abnormal Lab Results - Last 24 Hours (Table) 08/29/21 08/29/21 08/29/21 Range/Units 05:20 05:40 05:40 RBC 3.54 L (4.30-5.90) m/uL Hgb 9.9 L (13.0-17.5) gm/dL Hct 33.6 L (39.0-53.0) % MCHC 29.6 L (31.0-37.0) g/dL RDW 18.7 H (11.5-15.5) % Lymphocytes # 0.6 L (1.0-4.8) k/uL ABG pCO2 46 H (35-45) mmHg ABG HCO3 31 H (21-25) mmol/L ABG O2 Saturation 97.3 H (94-97) % Sodium 134 L (137-145) mmol/L BUN 22 H (9-20) mg/dL Glucose 102 H (74-99) mg/dL POC Glucose (mg/dL) (75-99) mg/dL Total Protein 5.7 L (6.3-8.2) g/dL Albumin 2.9 L (3.5-5.0) g/dL 08/29/21 08/29/21 Range/Units 11:40 17:40 RBC (4.30-5.90) m/uL Hgb (13.0-17.5) gm/dL Hct (39.0-53.0) % MCHC (31.0-37.0) g/dL RDW (11.5-15.5) % Lymphocytes # (1.0-4.8) k/uL ABG pCO2 (35-45) mmHg ABG HCO3 (21-25) mmol/L ABG O2 Saturation (94-97) % Sodium (137-145) mmol/L BUN (9-20) mg/dL Glucose (74-99) mg/dL POC Glucose (mg/dL) 104 H 112 H (75-99) mg/dL Total Protein (6.3-8.2) g/dL Albumin (3.5-5.0) g/dL Microbiology - Last 24 Hours (Table) 08/26/21 11:21 Blood Culture - Preliminary Blood No Growth after 72 hours 08/26/21 11:00 Blood Culture - Preliminary Blood No Growth after 72 hours Assessment and Plan Assessment: Acute bilateral Covid pneumonia, with suspected bacterial superinfection mainly in the left lower lobe Acute hypoxic respiratory failure, remains on mechanical ventilation. s/p traheostomy ARDS secondary to COOVID Pneumonia Critical illness polyneuromyopathy Right lung PE was on IV heparin. changed to Eliquis Elevated inflammatory markers Acute kidney injury secondary to ATN with Covid pneumonia. Resolved. Hypertension Hyperkalemia secondary to acute kidney injury. improved. Anemia Metabolic acidosis. improved. Elevated d-dimer Morbid Obesity with BMI of 49.8 Plan: This is a pleasant 31 years old male who presents with bilateral Covid pneumonia and hypoxia. Patient remains on mechanical ventilator..s/p traheostomy. Tracheostomy was exchanged yesterday. Completed dexamethasone course . Continue with vitamin C, vitamin D and zinc. Discontinue Baricitinib . Continue with Zosyn and Levaquin. Was on heparin drip for acute PE. Changed to eliquis. Continued on normal saline KVO. Patient is scheduled for tracheostomy. Tolerating tube feeding NG tube. Pulmonary and Gen surgery is on board. Labs and medication were reviewed. Monitor lytes and vitals. DVT and GI prophylaxis. PT/OT is following. DVT prophylaxis: Eliquis GI Prophylaxis: Protonix Time with Patient: Greater than 30
--- NOTE | 2021-08-29 21:25 | P.PN ---
Subjective Progress Note Date: 08/28/21 Principal diagnosis: Acute hypoxemic respiratory failure secondary to Covid pneumonia This is a pleasant 31 years old -[place] man with no significant past medical history presents with dyspnea which started yesterday associated with fever and coughing. Patient tested positive for covid earlier on Thursday after he felt with fever and cough on Thursday but at that time he was not dyspneic. He denies chest pain or abdominal pain but he has diarrhea on and off. No vomi ting. He is saturating 89% on 6 L oxygen via nasal cannula, afebrile. Tachypneic with a breathing rate at 23. CBC, is unremarkable. INR is normal at 1.0. Sodium is 1:30, creatinine normal at 1.1, glucose 103. AST is mildly elevated 106 and ALT mildly elevated 106. Elevated lactate dehydrogenase 2600 and C-reactive protein 20.3. Cholelithiasis positive EKG shows sinus tachycardia and [address]-T changes Chest x-ray showing bilateral infiltrates 08/01/2021 Patient sitting at bedside using 50 L of oxygen via nonrebreather. Reports slight improvement in his breathing and his chest x-ray showing somewhat improvement in that area should on both sides. He has low-grade fever today at 200. Blood pressure is stable. D-dimer is 1.87. BMP is unremarkable, liver enzymes slightly trending down. LDH slightly down at 2437 and slightly decreased and C-reactive protein 16.7. C BC and pro-calcitonin are pending Sputum and blood culture are still pending He remains on multiple vitamins, Baricitinib, dexamethasone and normal saline at 75 mL/h. Also he is on Lovenox. Norvasc is added for blood pressure control also we will add metoprolol Subjective: 08/05/21 patient still with dyspnea requiring BiPAP most of the time. He is developing fever of 101.7 today. Blood pressure 157/91. He has leukocytosis 19.1.liver enzymes Are the same. LDH elevated 2935 and C- reactive protein 18.2 his still on multiple vitamins, Baricitinib, dexamethasone and normal saline at 50 mL/h. Also he is on Lovenox therapeutic dose after his d-dimer yesterday. 08/06/2021 Patient remains on BiPAP needing higher pressures 14/8 and FiO2 of 100%. Also history of chronic fever around 100 and pro-calcitonin elevated at 0.40. This left leukocytosis around 22, LDH and C-reactive protein still elevated. D- dimer is trending down to 8.5 and CTA of the chest today showing negative for PE but bilateral groundglass opacity. Sputum culture 2 is negative. Urine analysis is negative for infection Today patient SWITCHED to heparin drip. Also he was started on Zosyn. Also dexamethasone 6 mg daily and normal saline at 50 mL per hour. Discontinue Baricitinib per pulmonary 08/07/2021 Patient respiratory status got worse and eventually patient got intubated while he is in the ICU. Pulmonary/critical care team following the patient closely and help with vent management. He has a fever of 100. Breathing rate around 29. Blood pressure is stable. WBC down to 19 K, Patient is acidotic with pH of 7.2, pCO2 of 57 which is low and high pO2 of 99. Chest x-ray showed increasing bilateral infiltrate and left lower lobe pneumonia. Repeat sputum culture is pending. First 2 samples were negative He remains on Zosyn, dexamethasone, normal saline at 50 mL per hour , heparin drip, multiple vitamins 08/08/2021 Patient remains in the ICU in critical condition and generally he is not doing well. I'll intubated and on mechanical ventilation with the pulmonary/critical care team R following closely He is hemodynamically stable, mildly tachycardic. WBC improving down to 15 but also hemoglobin dropped to 11.9 down to 9.8. And while he continued on heparin drip for suspected thrombosis secondary to his Covid infection and high d-dimer will increase his for chronic 40 mg daily and to twice a day. Patient FiO2 was lowered to 70%, he did not tolerate the prone position. He has no fever but tachypneic at 38 Today his creatinine went up 1.0 up to 2.8 with mild hyperkalemia however he is making good urine output with yellow urine in his Lees catheter bag nephrology team were consulted and bicarb drip was started for acidosis with pH of 7.22. He remains on Zosyn, dexamethasone, vitamin C, D and zinc. 08/09/2021 Remains in the ICU in critical condition. He continue on mechanical ventilation with pulmonary/critical care team on the consult. He still significantly tachypneic at 38 and leukocytosis. Possibly just at that time level 18 to 20, prone position was tried but patient could not tolerate it so avoided now. Labs showing improvement leukocytosis 12 K, hemoglobin 9.2, FiO2 lower to 55%. Creatinine improved slightly to 2.2 after starting normal saline at 75 mL/h. Chest x-ray showing the same findings of bilateral pneumonia. Dexamethasone was increased to twice daily today, normal saline 75 mL/h started. Well continued on heparin drip, Zosyn and multiple vitamins 08/10/2021 Patient condition did not change much from yesterday. He remains intubation only FiO2 lower to 55 from 70% and PEEP down to 18. With pulmonary/critical care team following the case closely. This remains tachycardia. No need for pressors. He hasn't been fever for the last 48 hours. D-dimer trending down to 1.7. WBC down to 11.8. Hemoglobin down to 8.9. Inflammatory markers improved to 114 and 19.9.. Creatinine is stable from yesterday at 2.2. Chest x-ray showing similar infiltrate both sides more on the left side. He remains on Zosyn, multiple vitamins, dexamethasone, normal saline, heparin drip. 08/11/2021 Patient remains in the ICU in critical condition. He is currently on mechanical ventilation significantly tachypneic around 38. With the floor at about 60 L/m. He is FiO2 of 60% and PEEP of 20. With pulmonary/critical care team opened and vent management. Labs showing WBC 12.6, hemoglobin slightly trending to 7.8. Lactate dehydrogenase 1245 and C-reactive protein down to 13.6. Creatinine is 2.0 Is on Zosyn, dexamethasone, normal sinus 75, heparin drip. 08/12/2021 Patient is currently in the intensive care unit. Remains on mechanical ventilator due to acute hypoxemic respiratory failure with Covid pneumonia Currently on before meals 375, FiO2 60% and PEEP of 20. Patient is on Nimbex drip and heparin subcu. Patient is also on fentanyl. Laboratory data showed WBC 15 hemoglobin 7.8 hematocrit 26.1 and platelets 433 And d-dimer is 1.68 sodium 140 potassium 5.3 chloride 101 bicarb is 25 BUN 16 creatinine 1.73. The LDH 1160. Chest x-ray showed findings similar to prior exam. Correlate for pneumonia, edema, ARDS. 08/13/2021 Patient is currently in the intensive care unit. Remains on mechanical ventilator. Assist control 375 and FiO2 at 50% and PEEP of 20. Currently being continued on Nimbex and fentanyl drip. Patient is being converted on IV heparin due to pulmonary embolism. Patient is being controlled on antibiotic Levaquin and Zosyn. Patient is scheduled for vacation and PEG tube placement tomorrow. Laboratory data showed WBC 30.0, hemoglobin 9.5 platelets 634 D-dimer 2.68, sodium 140 potassium 5.6 chloride 108 BUN 51 and creatinine 1.61, AST 75 ALT 193 Patient is being continued on dexamethasone 6 mg IV twice a day. Pulmonary and nephrology and general surgery is on board. 08/14/2021 Patient is currently in the MICU on mechanical ventilator. His control with tidal volume 375, FiO2 55%, PEEP of 20. Patient is on Nimbex drip and propofol and fentanyl drip as well as heparin drip due to pulmonary embolism. Patient is scheduled for tracheostomy and PEG tube placement. Remains on antibiotics in the form of Levaquin and Zosyn. Laboratory data showed WBC 17.5 hemoglobin 7.7 and platelets 462 Sodium 139 potassium 5.2 chloride 108 BUN 51 and creatinine 1.77 Albumin 2.7 and total protein 5.5. Tube feedings on hold for scheduled surgical procedure. Pulmonary, nephrology and general surgery is on board. 08/15/2021 Patient is currently in the MICU. Patient had tracheostomy and is currently remains mechanical ventilator. FiO2 55% and PEEP of 20. Patient is also on propofol, Nimbex and fentanyl drip. Also on heparin IV due to pulmonary embolism. NG tube was taken out prior to tracheostomy. Laboratory data showed WBC 15.6 hemoglobin 7.4 platelets 404 and D-dimer 3.76 Sodium 137 potassium 4.9 chloride 105 bicarb is 25 BUN 49 and creatinine 1.59 Repeat chest x-ray today showed diffuse bilateral infiltrates. Patient remains dexamethasone, antibiotics no cough Levaquin and Zosyn. Pulmonary and nephrology and general surgery is on board. 08/26/2021 Patient was admitted to the hospital due to COVID-19 pneumonia and acute hypoxic respiratory failure. Patient was also found have acute PE. Currently patient is status post tracheostomy and remains on mechanical ventilator. Patient is in the MICU currently. on pressure control 12 and FiO2 40% and PEEP of 10. Patient is awake alert and able to follow simple commands. Patient did have T- max 101 last night. Sputum cultures were sent. Chest x-ray showed stable chest. Patient is being continued on Lasix 40 mg IV daily, ascorbic acid, vitamin D3 and anticoagulation the form of Eliquis. Heart rate is controlled with metoprolol. Pulmonary and nephrology and surgery is on board. Patient is tolerating tube feeding. 08/27/2021 Patient eventually MICU. On mechanical ventilator via trach. Patient is tolerating pressure support. Chest x-ray showed bilateral infiltrates. Patient is being continued on Precedex and not on any sedation. Patient does respond to verbal stimuli and able to open his eyes and follow simple commands. on NG tube feeding. Patient is being continued on anticoagulation with Eliquis for pulmonary embolism. Not on pressor support. Laboratory data showed WBC 4.1 hemoglobin 8.1 and platelets 198 and BUN 27 creatinine 0.81 PT OT is following. 08/28/2021 Patient remains in the MICU. Currently on mechanical ventilator via trach tube. Tolerating NG tube feeding. Awake alert and able to follow simple commands. Tracheostomy tube was adjusted by pulmonary team. Patient was changed to assist control with tidal volume 450, FiO2 at 50% and PEEP of 12. Chest x-ray showed bilateral infiltrates not much change from yesterday. Patient has been afebrile. PT OT is following. Lab data showed WBC 5.6 hemoglobin 9.4 and platelets 279 BUN 23 and creatinine 0.72 bicarb 29 potassium 3.9 and albumin 3.0 Current medications reviewed. Objective - Vital Signs Vital signs: Vital Signs Temp 99 F 08/28/21 20:00 Pulse 105 H 08/28/21 21:00 Resp 24 08/28/21 21:00 BP 106/59 08/28/21 21:00 Pulse Ox 93 L 08/28/21 21:00 Intake & Output 08/28/21 08/28/21 08/29/21 06:59 18:59 06:59 Intake Total 1754.405 3659.397 208 Output Total 775 3043 100 Balance 601.316 -1179.603 108 Weight 113.8 kg 113.8 kg Intake: IV 240 340 60 Sodium Chloride 0.9% 1, 240 240 60 000 ml @ 20 mls/hr IV . Q24H [facility] Rx#:[id number] Intake, IV Titration 6150.450 4811.397 100 Amount Cisatracurium 200 mg In 282.377 239.596 Sodium Chloride 0.9% 180 ml @ 1 MCG/KG/MIN 6.702 mls/hr IV .Q24H [facility] Rx#: [id number] Piperacillin-Tazobactam 3 100 100 .375 gm In Sodium Chloride 0.9% 100 ml @ 25 mls/hr IVPB Q8HR [facility] Rx# :[id number] fentaNYL (PF) 2,500 mcg 611.347 In Sodium Chloride 0.9% 200 ml @ 2 MCG/KG/HR 26. 308 mls/hr IV .[id number] [facility] Rx#:[id number] fentaNYL (PF). 1,000 mcg 161.034 In Sodium Chloride 0.9% 80 ml @ 0.5 MCG/KG/HR 5. 585 mls/hr IV .[id number] [facility] Rx#:[id number] propofoL 1,000 mg In 592.905 470.454 100 Empty Bag 1 bag @ Titrate IV .Q0M [facility] Rx#: [id number] Tube Feeding 0 12 48 Other 90 Output: Gastric Drainage 400 Urine 775 2640 100 Estimated Blood Loss 3 Other: Voiding Method Indwelling Catheter Indwelling Catheter Indwelling Catheter # Bowel Movements 1 ABP, PAP, CO, CI - Last Documented Arterial Blood Pressure 120/59 - Exam - Exam -GENERAL: The patient is status post tracheostomy and on mechanical ventilator. Awake alert and oriented. Follows simple commands. HEENT: Pupils are round and equally reacting to light. EOMI. No scleral icterus. No conjunctival pallor. Normocephalic, atraumatic. No pharyngeal erythema. No thyromegaly. CARDIOVASCULAR: S1 and S2 present. No murmurs, rubs, or gallops. -PULMONARY: Chest is clear to auscultation, no wheezing, tachypnea ABDOMEN: Soft, nontender, nondistended, normoactive bowel sounds. No palpable organomegaly. Bilateral coarse breath sounds. Tracheostomy in place. On mechanical ventilator. MUSCULOSKELETAL: No joint swelling or deformity. EXTREMITIES: No cyanosis, clubbing, or pedal edema. NEUROLOGICAL: Gross neurological examination did not reveal any focal deficits. SKIN: No rashes. No petechiae - Labs CBC & Chem 7: 08/29/21 05:40 08/29/21 05:40 Labs: Abnormal Lab Results - Last 24 Hours (Table) 08/28/21 08/28/21 08/28/21 Range/Units 00:05 01:27 05:44 RBC (4.30-5.90) m/uL Hgb (13.0-17.5) gm/dL Hct (39.0-53.0) % MCHC (31.0-37.0) g/dL RDW (11.5-15.5) % Lymphocytes # (1.0-4.8) k/uL ABG pCO2 46 H (35-45) mmHg ABG pO2 75 L (83-108) mmHg ABG HCO3 31 H (21-25) mmol/L BUN 23 H (9-20) mg/dL POC Glucose (mg/dL) 104 H (75-99) mg/dL Total Protein 5.8 L (6.3-8.2) g/dL Albumin 3.0 L (3.5-5.0) g/dL 08/28/21 08/28/21 Range/Units 07:17 11:42 RBC 3.42 L (4.30-5.90) m/uL Hgb 9.4 L (13.0-17.5) gm/dL Hct 33.3 L (39.0-53.0) % MCHC 28.2 L (31.0-37.0) g/dL RDW 18.3 H (11.5-15.5) % Lymphocytes # 0.8 L (1.0-4.8) k/uL ABG pCO2 (35-45) mmHg ABG pO2 (83-108) mmHg ABG HCO3 (21-25) mmol/L BUN (9-20) mg/dL POC Glucose (mg/dL) 69 L (75-99) mg/dL Total Protein (6.3-8.2) g/dL Albumin (3.5-5.0) g/dL Microbiology - Last 24 Hours (Table) 08/26/21 11:21 Blood Culture - Preliminary Blood No Growth after 48 hours 08/26/21 11:00 Blood Culture - Preliminary Blood No Growth after 48 hours 08/25/21 15:50 Gram Stain - Final Sputum Sputum Culture - Final Assessment and Plan Assessment: Acute bilateral Covid pneumonia, with suspected bacterial superinfection mainly in the left lower lobe Acute hypoxic respiratory failure, remains on mechanical ventilation. s/p traheostomy ARDS secondary to COOVID Pneumonia Critical illness polyneuromyopathy Right lung PE was on IV heparin. changed to Eliquis Elevated inflammatory markers Acute kidney injury secondary to ATN with Covid pneumonia. Resolved. Hypertension Hyperkalemia secondary to acute kidney injury. improved. Anemia Metabolic acidosis. improved. Elevated d-dimer Morbid Obesity with BMI of 49.8 Plan: This is a pleasant 31 years old male who presents with bilateral Covid pneumonia and hypoxia. Patient remains on mechanical ventilator..s/p traheostomy. Completed dexamethasone course . Continue with vitamin C, vitamin D and zinc. Discontinue Baricitinib . Continue with Zosyn and Levaquin. Was on heparin drip for acute PE. Changed to increase. Continued on normal saline KVO. Patient is scheduled for tracheostomy. Tolerating tube feeding NG tube. Pulmonary and nephrology is on board. Monitor creatinine. Pulmonary/critical care team is following. Labs and medication were reviewed. Monitor lytes and vitals. DVT and GI prophylaxis. PT/OT , Further recommendations depends on the clinical course of the patient DVT prophylaxis: Eliquis GI Prophylaxis: Protonix Time with Patient: Greater than 30
[2021-08-30] MEDS: INSULIN ASPART (NovoLOG) 100 UNIT/ML VIAL SQ SCH ×4 (00:21→17:22)
[2021-08-30] MEDS: PIPERACILLIN-TAZOBACTAM 3.375 GM in SODIUM CHLORIDE 0.9% 100 ML IVPB SCH ×3 (00:21→15:28)
[2021-08-30 00:22] LABS: Glucose,Whole Blood 98 mg/dL (75-99)
[2021-08-30] MEDS: ACETAMINOPHEN TAB 325 MG TAB PO PRN (03:35)
[2021-08-30 05:08] LABS: ABG Base Excess 8.7 mmol/L; ABG HCO3 32 mmol/L (21-25); ABG Oxygen Saturation 98.6 % (94-97); ABG PCO2 40 mmHg (35-45); ABG PH 7.51 (7.35-7.45); ABG PO2 95 mmHg (83-108); ABG TCO2 33 mmol/L (19-24); Allen Test Performed? Yes
[2021-08-30] MEDS: DEXMEDETOMIDINE/0.9% NACL(PMX) 400 MCG in EMPTY BAG 1 BAG IV SCH ×2 (05:12→14:24)
[2021-08-30 05:51] LABS: Anisocytosis Slight; Basophils % (A) 0 %; Eosinophils # (A) 0.8 k/uL (0-0.7); Eosinophils % (A) 10 %; HCT 32.4 % (39.0-53.0); HGB 9.9 gm/dL (13.0-17.5); Hypochromasia Moderate; Lymphocytes # (A) 0.7 k/uL (1.0-4.8); Lymphocytes % (A) 9 %; MCH 28.3 pg (25.0-35.0); MCHC 30.7 g/dL (31.0-37.0); Mean Platelet Volume 9.1; Monocytes # (A) 0.3 k/uL (0-1.0); Monocytes % (A) 3 %; Neutrophils # (A) 6.2 k/uL (1.3-7.7); Neutrophils % (A) 77 %; Platelet Count 331 k/uL (150-450); RBC 3.52 m/uL (4.30-5.90); RDW 18.4 % (11.5-15.5); WBC 8.1 k/uL (3.8-10.6)
[2021-08-30] MEDS: HYDROmorphone 0.5 MG/0.5 ML SYRINGE IVP PRN (05:53)
[2021-08-30 05:54] LABS: Glucose,Whole Blood 100 mg/dL (75-99)
[2021-08-30] MEDS ORDERED: POTASSIUM BICARBONATE/CIT AC 20 MEQ TABLET.EFF NG-TUBE SCH (06:00)
[2021-08-30 06:01] LABS: ALT 24 U/L (4-49); AST 17 U/L (17-59); African American GFR (CKD) >90 (>60 ml/min/1.73 sqM); Albumin 3.1 g/dL (3.5-5.0); Alkaline Phosphatase 73 U/L (38-126); Anion Gap 11 mmol/L; Blood Urea Nitrogen 24 mg/dL (9-20); Calcium 9.2 mg/dL (8.4-10.2); Carbon Dioxide 28 mmol/L (22-30); Chloride 99 mmol/L (98-107); Glucose 109 mg/dL (74-99); Non-African American GFR(CKD) >90 (>60 ml/min/1.73 sqM); Potassium 3.8 mmol/L (3.5-5.1); Sodium 138 mmol/L (137-145); Total Bilirubin 0.8 mg/dL (0.2-1.3)
--- NOTE | 2021-08-30 07:00 | XR ---
EXAMINATION TYPE: XR chest 1V portable DATE OF EXAM: 08/30/2021 COMPARISON: 08/21/2021 INDICATION: Covid TECHNIQUE: Single frontal view of the chest is obtained. FINDINGS: The heart size is normal. The pulmonary vasculature is normal. There are diffuse increased infiltrates in the right upper lobe and through the left lung. Findings a re worsened from the comparison. Tracheostomy tube is in the midline . Nasogastric tube transverses the thorax. PICC line enters on the left tip in superior vena cava region. IMPRESSION: 1. Worsening bilateral lung infiltrates. 2. Lines and catheters discussed above.
[2021-08-30] MEDS: ALBUTEROL HFA INHALER INHALATION PRN ×2 (07:49→11:42)
[2021-08-30] MEDS: PANTOPRAZOLE 40 MG/10 ML VIAL IVP SCH ×2 (08:04→20:48)
[2021-08-30] MEDS: FUROSEMIDE 10 MG/ML 4 ML VIAL IV SCH (08:04)
[2021-08-30] MEDS: CHOLECALCIFEROL 25 MCG (1000 IU) TABLET PO SCH (08:04)
[2021-08-30] MEDS: ZINC SULFATE 220 MG CAP PO SCH (08:05)
[2021-08-30] MEDS: QUEtiapine 25 MG TAB PO SCH ×2 (08:05→20:48)
[2021-08-30] MEDS: hydrALAZINE HCL 25 MG TAB PO SCH ×3 (08:05→20:48)
[2021-08-30] MEDS: ASCORBIC ACID 500 MG TAB PO SCH (08:05)
[2021-08-30] MEDS: amLODIPine 5 MG TAB PO SCH ×2 (08:06→20:48)
[2021-08-30] MEDS: APIXABAN 5 MG TAB PO SCH ×2 (08:06→20:48)
[2021-08-30] MEDS: SENNOSIDES-DOCUSATE SODIUM 1 EACH TAB PO SCH (08:06)
[2021-08-30] MEDS: METOPROLOL TARTRATE 50 MG TAB PO SCH ×2 (08:06→20:48)
[2021-08-30] MEDS: CHLORHEXIDINE GLUCONATE 15 ML CUP MUCOUS MEM SCH ×2 (10:17→20:48)
[2021-08-30] MEDS: bisacodyL 10 MG SUPP RECTAL SCH (10:17)
[2021-08-30 12:47] LABS: Glucose,Whole Blood 104 mg/dL (75-99)
--- NOTE | 2021-08-30 13:12 | P.PN ---
Subjective Progress Note Date: 08/30/21 Principal diagnosis: Acute hypoxic respiratory failure secondary to COVID-19 pneumonia On 08/25/2021, I'm seeing this patient for a follow-up. I'm pleased to report that the patient is awake and alert and following simple commands. He is weak. He is able to move his arms against gravity. Weakness is more in the lower extremities. Opens eyes spontaneously. His calm and comfortable. No agitation. He is off propofol. Is on fentanyl at 1.25 mcg/kg/h and he is also on Precedex at a dose of 0.7. He remains on a mechanical ventilator. As mentioned earlier, swish and poor pressure control mode of mechanical ventilation and this morning the patient is on a pressure control of 16, PEEP of 10, FiO2 of 40% and a rate of 26. His blood gases from today showed a pH of 7.5 0 with a pCO2 of 41 and pO2 of 62. He is having some limited amount of rest or secretions. Sputum culture will be sent. Meanwhile, the chest x-ray findings are essentially stable. Tracheostomy tube is in a good location. The B[place] tracheostomy tube cuff is deflated for now. The balloon itself is malfunctioning is not holding any pressure. Nevertheless, we have not seen any significant air leak through his mouth nor around the tracheostomy tube stoma. NG tube is in place. He is receiving enteral feeding for nutritional support. He is on anticoagulation with Eliquis. No bleeding complications. He remains on Decadron at a dose of 10 mg by mouth daily. He is also diuresing with IV Lasix. He is receiving Lasix 40 mg IV every 12 hours. His overall fluid balance over the past 24 hours has been negative and the order of -1.8 L. His weight is also improving. All 4 extremity edema is also improving. Very happy with his progress. His was at the bedside. Arterial line will be removed. Reevaluated today on 08/26/21, patient remains in the ICU, intubated and mechanically ventilated. Patient is on pressure control mode of mechanical ventilation, with pressure control of 12, inspiratory time of 0.9, FiO2 is 40%, and PEEP of 10. ABG showed a pO2 of 72 pCO2 of 39 pH of 7.50 patient is on Precedex at 0.5 mcg/kg/h, he is also on IV fluid at KVO, he is not requiring any pressors. Today after evaluating the patient, I recommended switching the patient to pressure support mode of mechanical ventilation with a pressure support of 14, and I recommended that we keep him on a PEEP of 8 and FiO2 was increased to 45%. Patient is receiving Nepro for nutritional support, his peak airway pressure is only 27. He had a temp of 101 last night, presently 99.4. Sputum was sent for cultures. Patient remains on Lasix at 40 mg daily. Chest x-ray continues to show bilateral infiltrates. But significantly improved compared to baseline. Patient is arousable, and he is extremely weak but he is able to follow simple instructions. After placing the patient on pressure sup port, patient seems to be moving good tidal volumes, and his respiratory rate is in the high 20s. Low 30s. Seems to be fairly comfortable with a pressure support mode of mechanical ventilation. A shunt remains on the COVID-19 cocktail. Remains on Precedex. He is also on Seroquel 50 mg twice a day. Protonix 40 mg IV push twice a day. His also on Lopressor 50 mg twice a day. And labetalol as needed patient is also on Eliquis 5 mg twice a day for his history of pulmonary embolism. Patient was reevaluated today on 08/27/2021, remains in the ICU, intubated and mechanically ventilated. Yesterday the patient tolerated almost 24 hours of pressure support mode of mechanical ventilation with a pressure support of 14. However earlier this morning the patient was noted to be a bit more short of breath, he was placed back on a pressure control mode of mechanical ventilation, and FiO2 of 45%, PEEP of 8, patient is doing well and he seems to be more comfortable. No ABG was done this morning. Chest x-ray continues to bilateral infiltrates. Patient remains on Precedex, not requiring any pressors, not requiring any other form of sedation. Patient apparently developed critical illness Pollyneuromyopathy, and he seems to be steadily improving, and I have recommended physical therapy, today we'll plan to place him back on pressure support of 14 and a PEEP of 8, FiO2 will remain at 45%. Patient remains on anticoagulation therapy for his pulmonary embolism. He remains on tube feeds receiving Nepro at 59 mL per hour. Hemodynamically he is stable. And I'm hoping at least we could give him another trial today of pressure support after resting him for few hours on pressure control mode of mechanical ventilation. Basic metabolic profile is normal today. Count is 4.1 hemoglobin is 8.1. C. diff screening is negative. Chest x-ray is basically about the same, continues to show bilateral infiltrates. Patient was reevaluated today on 08/28/21, remains in the ICU, intubated and mechanically ventilated. Yesterday the patient had a setback, while the patient was on pressure support mode of weaning, and he was doing fine, suddenly the patient was gagging on his tracheostomy tube, and small amount of secretions came out through his mouth, patient went on to develop worsening leak around the tracheostomy and he was getting worse clinically as I was watching the patient. Hence I had to paralyze the patient and put him back on Nimbex, and adjusted the tracheostomy and adjusted his neck to the point there was no cuff leak any further. The cuff was actually not holding any air in the tracheostomy, and I have contacted the surgeon to arrange for possibly tracheostomy change as soon as possible. I was able to stabilize the airway however the patient had to be sedated and paralyzed in order to avoid further cuff leak. Overnight the patient was kept on mechanical ventilation, he is now on volume control/assist- control mode of mechanical ventilation, he is on assist control rate of 24th of volume 450 FiO2 50% and PEEP of 12. I was able to cut down his FiO2 to 45%. Discussed again with the surgeon this morning the plan to revise his trach and this was done shortly after my discussion with the surgeon. The surgeon had to use a retractor to open up the wound and make it more exposed, he used cautery and subcutaneous tissue divided then he was able to visualize the tracheostomy and then the endotracheal tube was pulled out under direct vision and a #8 Shile y XLT tracheostomy tube was placed in the trachea. Now that the patient is having a more stable airway/tracheostomy, I plan to discontinue Nimbex, and I plan to go back into cutting down on sedation as much as possible, and possibly go back to weaning mode of mechanical ventilation hopefully in the next 24 hours. But I would definitely discontinue Nimbex now the airway seems to be more stable. This morning the patient is on propofol at 75-3 mcg/kg/h he is also on Nimbex, and IV fluid at 20 mL per hour. Tube feeding was placed on hold yesterday, may consider restarting the tube feeding today. Patient continued to have intermittent episodes of fevers yesterday, low-grade, and I recommended empirically starting the patient on Zosyn. Chest x-ray continues to show bilateral infiltrates, not much of a cell changer the last few days. Left lung seems to be more affected than the right lung. WBC count today is 5.6 hemoglobin is 9.4. electrolytes are normal renal profile is normal Reevaluated today on 08/29/21, patient remains in the ICU, intubated and mechanically ventilated. He is on assist control rate of 24 tidal volume 450 FiO2 45% PEEP of 12. Patient remains on propofol at 35 mcg/kg/m, he is also on fentanyl at 20 mcg/kg/h, and he is on IV fluid at KVO. His ABG today showed a pO2 of 87 pCO2 46 pH of 7.44. Patient underwent tracheostomy change yesterday by general surgery, and it seems to be functioning quite well. Patient remains on Nepro, not yet to goal, and the dose is being increased gradually. He is off Nimbex, and we are tapering his propofol and fentanyl and down, plan is to restart the patient on Precedex, and hopefully start some weaning trials probably again tomorrow. In spite of being on sedation, patient is arousable, he is actually awake, follows simple instructions, but he is noted to be profoundly weak. Asked x-ray is basically about the same showing bilateral infiltrates mostly right upper lobe and left lung. WBC count today is 6.1 hemog lobin is 9.9 electrolytes are normal, renal profile is normal Patient was reevaluated today on 08/30/21, patient remains in the ICU, remains intubated and mechanically ventilated, he is now on assist control rate of 24 tidal volume 450 FiO2 45% PEEP of 12 and I cut it down to 8. ABG showed a pO2 o f 95 pCO2 of 40 pH of 7.51. 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 Today I'm going to try the patient on pressure support of 14 and CPAP of 8, and I was watching the patient, he was maintaining good volumes with a pressure support of 14 volumes in the range of 450-500, and he was not in any distress, his rate was in the 20s. Obviously the patient seems to be tolerating pressure support of 14 and CPAP of 8. WBC count today is 8.1 hemoglobin is 9.1. Basic metabolic profile is normal renal profile is normal. Objective - Vital Signs Vital signs: Vital Signs Temp 99.2 F 08/30/21 12:00 Pulse 122 H 08/30/21 13:00 Resp 29 H 08/30/21 13:00 BP 92/49 08/30/21 13:00 Pulse Ox 94 L 08/30/21 13:00 Intake & Output 08/29/21 08/30/21 08/30/21 18:59 06:59 18:59 Intake Total 979.349 732 342 Output Total 1295 455 840 Balance -315.651 277 -498 Weight 112.4 kg 112.4 kg Intake: IV 240 420 270 Piperacillin-Tazobactam 3 200 210 .375 gm In Sodium Chloride 0.9% 100 ml @ 25 mls/hr IVPB Q8HR [facility] Rx# :[id number] Sodium Chloride 0.9% 1, 240 220 60 000 ml @ 20 mls/hr IV . Q24H [facility] Rx#:[id number] Intake, IV Titration 347.349 0 Amount Dexmedetomidine/0.9% NaCl 18.748 0 (Pmx) 400 mcg In Empty Bag 1 bag @ 0.2 MCG/KG/HR 5.71 mls/hr IV .[id number] [facility] Rx#:[id number] fentaNYL (PF) 2,500 mcg 78.266 In Sodium Chloride 0.9% 200 ml @ 2 MCG/KG/HR 26. 308 mls/hr IV .[id number] [facility] Rx#:[id number] fentaNYL (PF). 1,000 mcg 100 In Sodium Chloride 0.9% 80 ml @ 0.5 MCG/KG/HR 5. 585 mls/hr IV .[id number] [facility] Rx#:[id number] propofoL 1,000 mg In 150.335 Empty Bag 1 bag @ Titrate IV .Q0M [facility] Rx#: [id number] Tube Feeding 132 132 72 Other 260 180 Output: Urine 1295 455 840 Other: Voiding Method Indwelling Catheter Indwelling Catheter Indwelling Catheter # Bowel Movements 1 1 ABP, PAP, CO, CI - Last Documented Arterial Blood Pressure 120/59 - Exam Physical Exam: Revealed 31-year-old -[place] male, on mechanical ventilation, awake, follows instructions. On Precedex at 0.2 Head: Atraumatic, normocephalic. HEENT: Short obese neck. [Neck is supple.] [No neck masses.] [No thyromegaly.] [No JVD.] Tracheostomy is intact Chest: [Symmetrical chest expansion, fine crackles at the bases. Cardiac Exam: Distant S1 and S2, no S3 gallop, no murmur. Abdomen: [Obese, soft, nontender, no megaly, no rebound, no guarding. Extremities: No clubbing, trace of edema, no cyanosis. Neurological Exam: Awake, follows simple instructions but noted to be generally and profoundly weak. Psychiatric: Normal mood, blunt affect, follows simple instructions. Musculoskeletal: No deformities Skin: No rashes. - Labs CBC & Chem 7: 08/30/21 05:37 08/30/21 05:37 Labs: Abnormal Lab Results - Last 24 Hours (Table) 08/29/21 08/30/21 08/30/21 Range/Units 17:40 05:03 05:37 RBC 3.52 L (4.30-5.90) m/uL Hgb 9.9 L (13.0-17.5) gm/dL Hct 32.4 L (39.0-53.0) % MCHC 30.7 L (31.0-37.0) g/dL RDW 18.4 H (11.5-15.5) % Lymphocytes # 0.7 L (1.0-4.8) k/uL Eosinophils # 0.8 H (0-0.7) k/uL ABG pH 7.51 H (7.35-7.45) ABG HCO3 32 H (21-25) mmol/L ABG Total CO2 33 H (19-24) mmol/L ABG O2 Saturation 98.6 H (94-97) % BUN (9-20) mg/dL Glucose (74-99) mg/dL POC Glucose (mg/dL) 112 H (75-99) mg/dL Total Protein (6.3-8.2) g/dL Albumin (3.5-5.0) g/dL 08/30/21 08/30/21 08/30/21 Range/Units 05:37 05:52 12:45 RBC (4.30-5.90) m/uL Hgb (13.0-17.5) gm/dL Hct (39.0-53.0) % MCHC (31.0-37.0) g/dL RDW (11.5-15.5) % Lymphocytes # (1.0-4.8) k/uL Eosinophils # (0-0.7) k/uL ABG pH (7.35-7.45) ABG HCO3 (21-25) mmol/L ABG Total CO2 (19-24) mmol/L ABG O2 Saturation (94-97) % BUN 24 H (9-20) mg/dL Glucose 109 H (74-99) mg/dL POC Glucose (mg/dL) 100 H 104 H (75-99) mg/dL Total Protein 6.0 L (6.3-8.2) g/dL Albumin 3.1 L (3.5-5.0) g/dL Microbiology - Last 24 Hours (Table) 08/26/21 11:21 Blood Culture - Preliminary Blood No Growth after 72 hours 08/26/21 11:00 Blood Culture - Preliminary Blood No Growth after 72 hours Assessment and Plan Assessment: Impression: Acute hypoxic respiratory failure secondary to COVID-19 pneumonia, intubated on August 06, tracheostomy August 14, on pressure support mode of mechanical ventilation August 26. And also on pressure support mode of mechanical ventilation on August 27, however the patient developed significant air leak from the tracheostomy, required placing the patient back on Nimbex, and on fentanyl as well as propofol. Today the patient is already off Nimbex, and his fentanyl and propofol , he is however on Precedex. ARDS secondary to COVID-19 pneumonia, improving. Elevated inflammatory markers secondary to COVID-19 pneumonia, improving. Acute pulmonary embolism secondary to COVID-19 pneumonia back on Eliquis. Elevated liver enzymes secondary to COVID-19 pneumonia and infection, improved. Morbid obesity, BMI of 43.1. Benign essential hypertension. Acute kidney injury/resolved.. Status post tracheostomy because of failure to wean. Status post revision of tracheostomy on 08/28/20 one by general surgery. 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 We'll try the patient on pressure support and CPAP today. Pressure support of 14 and CPAP of 8. And will continue such as long as tolerated. Weaning trials on a daily basis. Continue Zosyn empirically. Continue Decadron Continue Eliquis. Resume enteral feeding. Will consider placement of Dobbhoff tube once the patient is about to be transferred [facility]. Continue GI and DVT prophylaxis. Overall the patient is improving but remains relatively critically ill. Critical care time is over 30 minutes Time with Patient: Greater than 30
--- NOTE | 2021-08-30 14:01 | P.PN ---
Subjective Progress Note Date: 08/30/21 CHIEF COMPLAINT: COVID-19 pneumonia HISTORY OF PRESENT ILLNESS: Patient remains in the ICU on mechanical ventilation. Patient is status post tracheostomy revision with Dr. coelho. Patient is awake and alert. He has been undergoing weaning trials. He is status post tracheostomy placement on 08/14/21. Patient had 2 attempts for PEG tube placement that have been unsuccessful. He currently has NG tube in place to receive tube feedings. Afebrile , on CPAP FiO2 45% WBC 8.1 PHYSICAL EXAM: VITAL SIGNS: Reviewed. GENERAL: Well-developed in no acute distress. HEENT: No sclera icterus. Extraocular movements grossly intact. Moist buccal mucosa. Head is atraumatic, normocephalic. Tracheostomy site clean dry and intact ABDOMEN: Soft NEUROLOGIC: sedated ASSESSMENT: 1. Acute hypoxic respiratory failure due to COVID-19 pneumonia with prolonged mechanical intubation. Status post tracheostomy placement and revision 2. Severe protein calorie malnutrition PLAN: -Continue ICU management -Continue supportive care -Continue weaning trials Physician [employer] note has been reviewed by physician. Signing provider agrees with the documented findings, assessment, and plan of care. Objective - Vital Signs Vital signs: Vital Signs Temp 99.2 F 08/30/21 12:00 Pulse 122 H 08/30/21 13:00 Resp 29 H 08/30/21 13:00 BP 92/49 08/30/21 13:00 Pulse Ox 94 L 08/30/21 13:00 Intake & Output 08/29/21 08/30/21 08/30/21 18:59 06:59 18:59 Intake Total 979.349 732 342 Output Total 1295 455 840 Balance -315.651 277 -498 Weight 112.4 kg 112.4 kg Intake: IV 240 420 270 Piperacillin-Tazobactam 3 200 210 .375 gm In Sodium Chloride 0.9% 100 ml @ 25 mls/hr IVPB Q8HR [facility] Rx# :[id number] Sodium Chloride 0.9% 1, 240 220 60 000 ml @ 20 mls/hr IV . Q24H [facility] Rx#:[id number] Intake, IV Titration 347.349 0 Amount Dexmedetomidine/0.9% NaCl 18.748 0 (Pmx) 400 mcg In Empty Bag 1 bag @ 0.2 MCG/KG/HR 5.71 mls/hr IV .[id number] [facility] Rx#:[id number] fentaNYL (PF) 2,500 mcg 78.266 In Sodium Chloride 0.9% 200 ml @ 2 MCG/KG/HR 26. 308 mls/hr IV .[id number] [facility] Rx#:[id number] fentaNYL (PF). 1,000 mcg 100 In Sodium Chloride 0.9% 80 ml @ 0.5 MCG/KG/HR 5. 585 mls/hr IV .[id number] [facility] Rx#:[id number] propofoL 1,000 mg In 150.335 Empty Bag 1 bag @ Titrate IV .Q0M [facility] Rx#: [id number] Tube Feeding 132 132 72 Other 260 180 Output: Urine 1295 455 840 Other: Voiding Method Indwelling Catheter Indwelling Catheter Indwelling Catheter # Bowel Movements 1 1 ABP, PAP, CO, CI - Last Documented Arterial Blood Pressure 120/59 - Labs CBC & Chem 7: 08/30/21 05:37 08/30/21 05:37 Labs: Abnormal Lab Results - Last 24 Hours (Table) 08/29/21 08/30/21 08/30/21 Range/Units 17:40 05:03 05:37 RBC 3.52 L (4.30-5.90) m/uL Hgb 9.9 L (13.0-17.5) gm/dL Hct 32.4 L (39.0-53.0) % MCHC 30.7 L (31.0-37.0) g/dL RDW 18.4 H (11.5-15.5) % Lymphocytes # 0.7 L (1.0-4.8) k/uL Eosinophils # 0.8 H (0-0.7) k/uL ABG pH 7.51 H (7.35-7.45) ABG HCO3 32 H (21-25) mmol/L ABG Total CO2 33 H (19-24) mmol/L ABG O2 Saturation 98.6 H (94-97) % BUN (9-20) mg/dL Glucose (74-99) mg/dL POC Glucose (mg/dL) 112 H (75-99) mg/dL Total Protein (6.3-8.2) g/dL Albumin (3.5-5.0) g/dL 1008/30/21 08/30/21 Range/Units 05:37 05:52 12:45 RBC (4.30-5.90) m/uL Hgb (13.0-17.5) gm/dL Hct (39.0-53.0) % MCHC (31.0-37.0) g/dL RDW (11.5-15.5) % Lymphocytes # (1.0-4.8) k/uL Eosinophils # (0-0.7) k/uL ABG pH (7.35-7.45) ABG HCO3 (21-25) mmol/L ABG Total CO2 (19-24) mmol/L ABG O2 Saturation (94-97) % BUN 24 H (9-20) mg/dL Glucose 109 H (74-99) mg/dL POC Glucose (mg/dL) 100 H 104 H (75-99) mg/dL Total Protein 6.0 L (6.3-8.2) g/dL Albumin 3.1 L (3.5-5.0) g/dL Microbiology - Last 24 Hours (Table) 08/26/21 11:21 Blood Culture - Preliminary Blood No Growth after 96 hours 08/26/21 11:00 Blood Culture - Preliminary Blood No Growth after 96 hours
[2021-08-30] MEDS: SODIUM CHLORIDE 0.9% 1,000 ML IV SCH (14:09)
[2021-08-30 17:39] LABS: Glucose,Whole Blood 118 mg/dL (75-99)
--- NOTE | 2021-08-30 21:14 | P.PN ---
Subjective Progress Note Date: 08/30/21 Principal diagnosis: Acute hypoxemic respiratory failure secondary to Covid pneumonia This is a pleasant 31 years old -Citizen Of [place] man with no significant past medical history presents with dyspnea which started yesterday associated with fever and coughing. Patient tested positive for covid earlier on Thursday after he felt with fever and cough on Thursday but at that time he was not dyspneic. He denies chest pain or abdominal pain but he has diarrhea on and off. No vomi ting. He is saturating 89% on 6 L oxygen via nasal cannula, afebrile. Tachypneic with a breathing rate at 23. CBC, is unremarkable. INR is normal at 1.0. Sodium is 1:30, creatinine normal at 1.1, glucose 103. AST is mildly elevated 106 and ALT mildly elevated 106. Elevated lactate dehydrogenase 2600 and C-reactive protein 20.3. Cholelithiasis positive EKG shows sinus tachycardia and [address]-T changes Chest x-ray showing bilateral infiltrates 08/01/2021 Patient sitting at bedside using 50 L of oxygen via nonrebreather. Reports slight improvement in his breathing and his chest x-ray showing somewhat improvement in that area should on both sides. He has low-grade fever today at 200. Blood pressure is stable. D-dimer is 1.87. BMP is unremarkable, liver enzymes slightly trending down. LDH slightly down at 2437 and slightly decreased and C-reactive protein 16.7. C BC and pro-calcitonin are pending Sputum and blood culture are still pending He remains on multiple vitamins, Baricitinib, dexamethasone and normal saline at 75 mL/h. Also he is on Lovenox. Norvasc is added for blood pressure control also we will add metoprolol Subjective: 08/05/21 patient still with dyspnea requiring BiPAP most of the time. He is developing fever of 101.7 today. Blood pressure 157/91. He has leukocytosis 19.1.liver enzymes Are the same. LDH elevated 2935 and C- reactive protein 18.2 his still on multiple vitamins, Baricitinib, dexamethasone and normal saline at 50 mL/h. Also he is on Lovenox therapeutic dose after his d-dimer yesterday. 08/06/2021 Patient remains on BiPAP needing higher pressures 14/8 and FiO2 of 100%. Also history of chronic fever around 100 and pro-calcitonin elevated at 0.40. This left leukocytosis around 22, LDH and C-reactive protein still elevated. D- dimer is trending down to 8.5 and CTA of the chest today showing negative for PE but bilateral groundglass opacity. Sputum culture 2 is negative. Urine analysis is negative for infection Today patient SWITCHED to heparin drip. Also he was started on Zosyn. Also dexamethasone 6 mg daily and normal saline at 50 mL per hour. Discontinue Baricitinib per pulmonary 08/07/2021 Patient respiratory status got worse and eventually patient got intubated while he is in the ICU. Pulmonary/critical care team following the patient closely and help with vent management. He has a fever of 100. Breathing rate around 29. Blood pressure is stable. WBC down to 19 K, Patient is acidotic with pH of 7.2, pCO2 of 57 which is low and high pO2 of 99. Chest x-ray showed increasing bilateral infiltrate and left lower lobe pneumonia. Repeat sputum culture is pending. First 2 samples were negative He remains on Zosyn, dexamethasone, normal saline at 50 mL per hour , heparin drip, multiple vitamins 08/08/2021 Patient remains in the ICU in critical condition and generally he is not doing well. I'll intubated and on mechanical ventilation with the pulmonary/critical care team R following closely He is hemodynamically stable, mildly tachycardic. WBC improving down to 15 but also hemoglobin dropped to 11.9 down to 9.8. And while he continued on heparin drip for suspected thrombosis secondary to his Covid infection and high d-dimer will increase his for chronic 40 mg daily and to twice a day. Patient FiO2 was lowered to 70%, he did not tolerate the prone position. He has no fever but tachypneic at 38 Today his creatinine went up 1.0 up to 2.8 with mild hyperkalemia however he is making good urine output with yellow urine in his Lees catheter bag nephrology team were consulted and bicarb drip was started for acidosis with pH of 7.22. He remains on Zosyn, dexamethasone, vitamin C, D and zinc. 08/09/2021 Remains in the ICU in critical condition. He continue on mechanical ventilation with pulmonary/critical care team on the consult. He still significantly tachypneic at 38 and leukocytosis. Possibly just at that time level 18 to 20, prone position was tried but patient could not tolerate it so avoided now. Labs showing improvement leukocytosis 12 K, hemoglobin 9.2, FiO2 lower to 55%. Creatinine improved slightly to 2.2 after starting normal saline at 75 mL/h. Chest x-ray showing the same findings of bilateral pneumonia. Dexamethasone was increased to twice daily today, normal saline 75 mL/h started. Well continued on heparin drip, Zosyn and multiple vitamins 08/10/2021 Patient condition did not change much from yesterday. He remains intubation only FiO2 lower to 55 from 70% and PEEP down to 18. With pulmonary/critical care team following the case closely. This remains tachycardia. No need for pressors. He hasn't been fever for the last 48 hours. D-dimer trending down to 1.7. WBC down to 11.8. Hemoglobin down to 8.9. Inflammatory markers improved to 114 and 19.9.. Creatinine is stable from yesterday at 2.2. Chest x-ray showing similar infiltrate both sides more on the left side. He remains on Zosyn, multiple vitamins, dexamethasone, normal saline, heparin drip. 08/11/2021 Patient remains in the ICU in critical condition. He is currently on mechanical ventilation significantly tachypneic around 38. With the floor at about 60 L/m. He is FiO2 of 60% and PEEP of 20. With pulmonary/critical care team opened and vent management. Labs showing WBC 12.6, hemoglobin slightly trending to 7.8. Lactate dehydrogenase 1245 and C-reactive protein down to 13.6. Creatinine is 2.0 Is on Zosyn, dexamethasone, normal sinus 75, heparin drip. 08/12/2021 Patient is currently in the intensive care unit. Remains on mechanical ventilator due to acute hypoxemic respiratory failure with Covid pneumonia Currently on before meals 375, FiO2 60% and PEEP of 20. Patient is on Nimbex drip and heparin subcu. Patient is also on fentanyl. Laboratory data showed WBC 15 hemoglobin 7.8 hematocrit 26.1 and platelets 433 And d-dimer is 1.68 sodium 140 potassium 5.3 chloride 101 bicarb is 25 BUN 16 creatinine 1.73. The LDH 1160. Chest x-ray showed findings similar to prior exam. Correlate for pneumonia, edema, ARDS. 08/13/2021 Patient is currently in the intensive care unit. Remains on mechanical ventilator. Assist control 375 and FiO2 at 50% and PEEP of 20. Currently being continued on Nimbex and fentanyl drip. Patient is being converted on IV heparin due to pulmonary embolism. Patient is being controlled on antibiotic Levaquin and Zosyn. Patient is scheduled for vacation and PEG tube placement tomorrow. Laboratory data showed WBC 30.0, hemoglobin 9.5 platelets 634 D-dimer 2.68, sodium 140 potassium 5.6 chloride 108 BUN 51 and creatinine 1.61, AST 75 ALT 193 Patient is being continued on dexamethasone 6 mg IV twice a day. Pulmonary and nephrology and general surgery is on board. 08/14/2021 Patient is currently in the MICU on mechanical ventilator. His control with tidal volume 375, FiO2 55%, PEEP of 20. Patient is on Nimbex drip and propofol and fentanyl drip as well as heparin drip due to pulmonary embolism. Patient is scheduled for tracheostomy and PEG tube placement. Remains on antibiotics in the form of Levaquin and Zosyn. Laboratory data showed WBC 17.5 hemoglobin 7.7 and platelets 462 Sodium 139 potassium 5.2 chloride 108 BUN 51 and creatinine 1.77 Albumin 2.7 and total protein 5.5. Tube feedings on hold for scheduled surgical procedure. Pulmonary, nephrology and general surgery is on board. 08/15/2021 Patient is currently in the MICU. Patient had tracheostomy and is currently remains mechanical ventilator. FiO2 55% and PEEP of 20. Patient is also on propofol, Nimbex and fentanyl drip. Also on heparin IV due to pulmonary embolism. NG tube was taken out prior to tracheostomy. Laboratory data showed WBC 15.6 hemoglobin 7.4 platelets 404 and D-dimer 3.76 Sodium 137 potassium 4.9 chloride 105 bicarb is 25 BUN 49 and creatinine 1.59 Repeat chest x-ray today showed diffuse bilateral infiltrates. Patient remains dexamethasone, antibiotics no cough Levaquin and Zosyn. Pulmonary and nephrology and general surgery is on board. 08/26/2021 Patient was admitted to the hospital due to COVID-19 pneumonia and acute hypoxic respiratory failure. Patient was also found have acute PE. Currently patient is status post tracheostomy and remains on mechanical ventilator. Patient is in the MICU currently. on pressure control 12 and FiO2 40% and PEEP of 10. Patient is awake alert and able to follow simple commands. Patient did have T- max 101 last night. Sputum cultures were sent. Chest x-ray showed stable chest. Patient is being continued on Lasix 40 mg IV daily, ascorbic acid, vitamin D3 and anticoagulation the form of Eliquis. Heart rate is controlled with metoprolol. Pulmonary and nephrology and surgery is on board. Patient is tolerating tube feeding. 08/27/2021 Patient eventually MICU. On mechanical ventilator via trach. Patient is tolerating pressure support. Chest x-ray showed bilateral infiltrates. Patient is being continued on Precedex and not on any sedation. Patient does respond to verbal stimuli and able to open his eyes and follow simple commands. on NG tube feeding. Patient is being continued on anticoagulation with Eliquis for pulmonary embolism. Not on pressor support. Laboratory data showed WBC 4.1 hemoglobin 8.1 and platelets 198 and BUN 27 creatinine 0.81 PT OT is following. 08/28/2021 Patient remains in the MICU. Currently on mechanical ventilator via trach tube. Tolerating NG tube feeding. Awake alert and able to follow simple commands. Tracheostomy tube was adjusted by pulmonary team. Patient was changed to assist control with tidal volume 450, FiO2 at 50% and PEEP of 12. Chest x-ray showed bilateral infiltrates not much change from yesterday. Patient has been afebrile. PT OT is following. Lab data showed WBC 5.6 hemoglobin 9.4 and platelets 279 BUN 23 and creatinine 0.72 bicarb 29 potassium 3.9 and albumin 3.0 08/29/2021 Patient is in the MICU. On mechanical ventilator. Awake alert and follows simple commands. Assist control with tidal volume 450, FiO2 45% and PEEP of 12. Patient underwent tracheostomy change yesterday by general surgery. Current tube feeding. Patient is off Nimbex and propofol and fentanyl is being tapered off. Patient has been very weak and possible critical care illness only neuromyopathy is being considered. Laboratory data showed WBC 6.1 hemoglobin 9.9 platelets 311 Sodium 134 potassium 3.8 chloride 98 BUN 22 and creatinine 0.85 and albumin 2.9 Pulmonary and general surgery is on board. 08/30/2021 Patient is currently in the MICU. Requiring mechanical ventilator via trach tube. On assist control with tidal volume 450, FiO2 45% and PEEP of 8. Patient is on Precedex. Tolerating oral diet via NG tube. Chest x-ray today showed worsening bilateral lung infiltrates. Lines and cathet ers in place. Laboratory data showed WBC 8.1 hemoglobin 9.9 and platelets 331 Sodium 138 potassium 3.8 chloride 99 bicarb 28 BUN 24 and creatinine 0.87 and albumin 3.1 Patient is being continued on Eliquis 5 mg twice daily and also on IV Lasix 40 mg daily and an antibiotic the form of Zosyn emperically. Current medications reviewed. Objective - Vital Signs Vital signs: Vital Signs Temp 99.9 F H 08/30/21 20:00 Pulse 117 H 08/30/21 21:00 Resp 30 H 08/30/21 21:00 BP 107/62 08/30/21 21:00 Pulse Ox 96 08/30/21 21:00 Intake & Output 08/30/21 08/30/21 08/31/21 06:59 18:59 06:59 Intake Total 732 625.594 121.595 Output Total 455 1120 90 Balance 277 -494.406 31.595 Weight 112.4 kg 112.4 kg Intake: IV 420 440 20 Piperacillin-Tazobactam 3 200 310 .375 gm In Sodium Chloride 0.9% 100 ml @ 25 mls/hr IVPB Q8HR [facility] Rx# :[id number] Sodium Chloride 0.9% 1, 220 130 20 000 ml @ 20 mls/hr IV . Q24H [facility] Rx#:[id number] Intake, IV Titration 33.594 31.595 Amount Dexmedetomidine/0.9% NaCl 33.594 31.595 (Pmx) 400 mcg In Empty Bag 1 bag @ 0.2 MCG/KG/HR 5.71 mls/hr IV .[id number] [facility] Rx#:[id number] Tube Feeding 132 152 40 Other 180 30 Output: Urine 455 1120 90 Other: Voiding Method Indwelling Catheter Indwelling Catheter # Bowel Movements 1 ABP, PAP, CO, CI - Last Documented Arterial Blood Pressure 120/59 - Exam - Exam -GENERAL: The patient is status post tracheostomy and on mechanical ventilator. Awake alert and oriented. Follows simple commands. HEENT: Pupils are round and equally reacting to light. EOMI. No scleral icterus. No conjunctival pallor. Normocephalic, atraumatic. No pharyngeal erythema. No thyromegaly. CARDIOVASCULAR: S1 and S2 present. No murmurs, rubs, or gallops. -PULMONARY: Chest is clear to auscultation, no wheezing, tachypnea ABDOMEN: Soft, nontender, nondistended, normoactive bowel sounds. No palpable organomegaly. Bilateral coarse breath sounds. Tracheostomy in place. On mechanical ventilator. MUSCULOSKELETAL: No joint swelling or deformity. EXTREMITIES: No cyanosis, clubbing, or pedal edema. NEUROLOGICAL: Gross neurological examination did not reveal any focal deficits. SKIN: No rashes. No petechiae - Labs CBC & Chem 7: 08/30/21 05:37 08/30/21 05:37 Labs: Abnormal Lab Results - Last 24 Hours (Table) 08/30/21 08/30/21 08/30/21 Range/Units 05:03 05:37 05:37 RBC 3.52 L (4.30-5.90) m/uL Hgb 9.9 L (13.0-17.5) gm/dL Hct 32.4 L (39.0-53.0) % MCHC 30.7 L (31.0-37.0) g/dL RDW 18.4 H (11.5-15.5) % Lymphocytes # 0.7 L (1.0-4.8) k/uL Eosinophils # 0.8 H (0-0.7) k/uL ABG pH 7.51 H (7.35-7.45) ABG HCO3 32 H (21-25) mmol/L ABG Total CO2 33 H (19-24) mmol/L ABG O2 Saturation 98.6 H (94-97) % BUN 24 H (9-20) mg/dL Glucose 109 H (74-99) mg/dL POC Glucose (mg/dL) (75-99) mg/dL Total Protein 6.0 L (6.3-8.2) g/dL Albumin 3.1 L (3.5-5.0) g/dL 08/30/21 08/30/21 08/30/21 Range/Units 05:52 12:45 17:37 RBC (4.30-5.90) m/uL Hgb (13.0-17.5) gm/dL Hct (39.0-53.0) % MCHC (31.0-37.0) g/dL RDW (11.5-15.5) % Lymphocytes # (1.0-4.8) k/uL Eosinophils # (0-0.7) k/uL ABG pH (7.35-7.45) ABG HCO3 (21-25) mmol/L ABG Total CO2 (19-24) mmol/L ABG O2 Saturation (94-97) % BUN (9-20) mg/dL Glucose (74-99) mg/dL POC Glucose (mg/dL) 100 H 104 H 118 H (75-99) mg/dL Total Protein (6.3-8.2) g/dL Albumin (3.5-5.0) g/dL Microbiology - Last 24 Hours (Table) 08/26/21 11:21 Blood Culture - Preliminary Blood No Growth after 96 hours 08/26/21 11:00 Blood Culture - Preliminary Blood No Growth after 96 hours Assessment and Plan Assessment: Acute bilateral Covid pneumonia, with suspected bacterial superinfection mainly in the left lower lobe Acute hypoxic respiratory failure, remains on mechanical ventilation. s/p traheostomy ARDS secondary to COOVID Pneumonia Critical illness polyneuromyopathy Right lung PE was on IV heparin. changed to Eliquis Elevated inflammatory markers Acute kidney injury secondary to ATN with Covid pneumonia. Resolved. Hypertension Hyperkalemia secondary to acute kidney injury. improved. Anemia Metabolic acidosis. improved. Elevated d-dimer Morbid Obesity with BMI of 49.8 Plan: This is a pleasant 31 years old male who presents with bilateral Covid pneumonia and hypoxia. Patient remains on mechanical ventilator..s/p traheostomy. Tracheostomy was exchanged on 08/28. Completed dexamethasone course . Continue with vitamin C, vitamin D and zinc. Discontinue Baricitinib . Continue with Zosyn and Levaquin. Was on heparin drip for acute PE. Changed to eliquis. Continued on normal saline KVO. Patient is scheduled for tracheostomy. Tolerating tube feeding NG tube. Pulmonary and Gen surgery is on board. Labs and medication were reviewed. Monitor lytes and vitals. DVT and GI prophylaxis. PT/OT is following. DVT prophylaxis: Eliquis GI Prophylaxis: Protonix Time with Patient: Greater than 30
[2021-08-31] MEDS: PIPERACILLIN-TAZOBACTAM 3.375 GM in SODIUM CHLORIDE 0.9% 100 ML IVPB SCH ×4 (00:14→23:36)
[2021-08-31] MEDS: INSULIN ASPART (NovoLOG) 100 UNIT/ML VIAL SQ SCH ×5 (00:26→23:36)
[2021-08-31 01:00] LABS: Glucose,Whole Blood 114 mg/dL (75-99)
[2021-08-31] MEDS: DEXMEDETOMIDINE/0.9% NACL(PMX) 400 MCG in EMPTY BAG 1 BAG IV SCH ×3 (03:01→16:23)
[2021-08-31 05:20] LABS: ABG Base Excess 9.7 mmol/L; ABG HCO3 33 mmol/L (21-25); ABG Oxygen Saturation 99.5 % (94-97); ABG PCO2 43 mmHg (35-45); ABG PO2 103 mmHg (83-108); ABG TCO2 34 mmol/L (19-24); Allen Test Performed? Yes
[2021-08-31 06:16] LABS: Glucose,Whole Blood 113 mg/dL (75-99)
[2021-08-31 06:44] LABS: Anisocytosis Slight; HCT 29.5 % (39.0-53.0); HGB 9.1 gm/dL (13.0-17.5); Hypochromasia Marked; MCH 28.9 pg (25.0-35.0); MCHC 30.8 g/dL (31.0-37.0); MCV 93.6 fL (80.0-100.0); Mean Platelet Volume 9.4; Platelet Count 342 k/uL (150-450); RBC 3.15 m/uL (4.30-5.90); RDW 18.3 % (11.5-15.5); WBC 8.3 k/uL (3.8-10.6)
[2021-08-31 06:58] LABS: African American GFR (CKD) >90 (>60 ml/min/1.73 sqM); Anion Gap 9 mmol/L; Blood Urea Nitrogen 25 mg/dL (9-20); Calcium 8.9 mg/dL (8.4-10.2); Carbon Dioxide 29 mmol/L (22-30); Chloride 100 mmol/L (98-107); Glucose 107 mg/dL (74-99); Magnesium 1.9 mg/dL (1.6-2.3); Non-African American GFR(CKD) >90 (>60 ml/min/1.73 sqM); Potassium 3.5 mmol/L (3.5-5.1); Sodium 138 mmol/L (137-145)
[2021-08-31] MEDS: ALBUTEROL HFA INHALER INHALATION PRN ×4 (07:16→19:57)
--- NOTE | 2021-08-31 07:39 | XR ---
EXAMINATION TYPE: XR chest 1V portable DATE OF EXAM: 08/31/2021 COMPARISON: Chest x-ray 08/30/2021 HISTORY: Covid pneumonia TECHNIQUE: Single frontal view of the chest is obtained. FINDINGS: Tracheostomy tube, NG tube, left-sided PICC line are stable and overlying appropriate posi tions. Bilateral airspace disease is again seen. Cardiac mediastinal silhouette is stable. There is n o evident pneumothorax or pleural effusion. Lung volumes are low and the patient is rotated. IMPRESSION: Findings are similar. Correlate for pneumonia, ARDS, edema
[2021-08-31] MEDS: ZINC SULFATE 220 MG CAP PO SCH (08:37)
[2021-08-31] MEDS: bisacodyL 10 MG SUPP RECTAL SCH (08:37)
[2021-08-31] MEDS: hydrALAZINE HCL 25 MG TAB PO SCH ×3 (08:37→20:16)
[2021-08-31] MEDS: CHLORHEXIDINE GLUCONATE 15 ML CUP MUCOUS MEM SCH ×2 (08:37→20:16)
[2021-08-31] MEDS: APIXABAN 5 MG TAB PO SCH ×2 (08:38→20:16)
[2021-08-31] MEDS: CHOLECALCIFEROL 25 MCG (1000 IU) TABLET PO SCH (08:38)
[2021-08-31] MEDS: SENNOSIDES-DOCUSATE SODIUM 1 EACH TAB PO SCH (08:38)
[2021-08-31] MEDS: FUROSEMIDE 10 MG/ML 4 ML VIAL IV SCH (08:38)
[2021-08-31] MEDS: PANTOPRAZOLE 40 MG/10 ML VIAL IVP SCH ×2 (08:38→20:16)
[2021-08-31] MEDS: METOPROLOL TARTRATE 50 MG TAB PO SCH ×2 (08:38→20:16)
[2021-08-31] MEDS: ASCORBIC ACID 500 MG TAB PO SCH (08:38)
[2021-08-31] MEDS: amLODIPine 5 MG TAB PO SCH ×2 (08:38→20:16)
[2021-08-31] MEDS: QUEtiapine 25 MG TAB PO SCH ×2 (08:38→20:17)
[2021-08-31] MEDS ORDERED: METOCLOPRAMIDE 5 MG/ML 2 ML VIAL IVP PRN ×2 (11:46→11:48)
--- NOTE | 2021-08-31 12:28 | P.PN ---
Subjective Progress Note Date: 08/31/21 CHIEF COMPLAINT: Covid pneumonia HISTORY OF PRESENT ILLNESS: The patient is a 31-year-old male admitted with pneumonia due to Covid. He is mechanically ventilated. He had a revision of his tracheostomy. He is on tube feeds. He is awake. He is undergoing weaning trials. REVIEW OF ORGAN SYSTEMS: No fevers or chills. Mechanically ventilated. Morbid obesity with BMI 46.7, now 42.3 PHYSICAL EXAM: VITAL SIGNS: Stable GENERAL: Well-developed pleasant in no acute distress. HEENT: No scleral icterus. Extraocular movements grossly intact. Moist buccal mucosa. Tracheostomy intact CHEST: Mechanical ventilation with equal bilateral excursions. CARDIOVASCULAR: 2+ pulses ABDOMEN: Protuberant. No peritonitis. MUSCULOSKELETAL: No clubbing, cyanosis. NEURO: Sedated SKIN: Well perfused. PSYCH: sedated. LABS: Reviewed. WBC normal at 8.3. Hemoglobin 9.1 with anemia ASSESSMENT: 1. Covid pneumonia 2. Inadequate oral intake with protein malnutrition 3. Status post gastrostomy tube placement 4. Status post tracheostomy with revision 5. Morbid obesity due to excess calories, BMI 46.7, now 42.3 6. Anemia PLAN: 1. Continue supportive care due to Covid pneumonia 2. Weaning trials as tolerated. Objective - Vital Signs Vital signs: Vital Signs Temp 100.3 F H 08/31/21 08:00 Pulse 112 H 08/31/21 10:00 Resp 27 H 08/31/21 10:00 BP 110/77 08/31/21 10:00 Pulse Ox 95 08/31/21 10:00 Intake & Output 08/30/21 08/31/21 08/31/21 18:59 06:59 18:59 Intake Total 625.594 786.148 297.891 Output Total 7168 123 1870 Balance -494.406 371.148 -1342.109 Weight 112.4 kg 111.9 kg Intake: IV 440 220 200 Piperacillin-Tazobactam 3 310 100 100 .375 gm In Sodium Chloride 0.9% 100 ml @ 25 mls/hr IVPB Q8HR [facility] Rx# :[id number] Sodium Chloride 0.9% 1, 130 120 100 000 ml @ 20 mls/hr IV . Q24H [facility] Rx#:[id number] Intake, IV Titration 33.594 156.148 17.891 Amount Dexmedetomidine/0.9% NaCl 33.594 156.148 17.891 (Pmx) 400 mcg In Empty Bag 1 bag @ 0.2 MCG/KG/HR 5.71 mls/hr IV .[id number] [facility] Rx#:[id number] Tube Feeding 152 320 80 Other 90 Output: Urine 5374 243 1524 Emesis 200 Other: Voiding Method Indwelling Catheter Indwelling Catheter Indwelling Catheter ABP, PAP, CO, CI - Last Documented Arterial Blood Pressure 120/59 - Labs CBC & Chem 7: 08/31/21 05:47 08/31/21 05:47 Labs: Abnormal Lab Results - Last 24 Hours (Table) 08/30/21 08/30/21 08/31/21 Range/Units 12:45 17:37 00:23 RBC (4.30-5.90) m/uL Hgb (13.0-17.5) gm/dL Hct (39.0-53.0) % MCHC (31.0-37.0) g/dL RDW (11.5-15.5) % ABG pH (7.35-7.45) ABG HCO3 (21-25) mmol/L ABG Total CO2 (19-24) mmol/L ABG O2 Saturation (94-97) % BUN (9-20) mg/dL Glucose (74-99) mg/dL POC Glucose (mg/dL) 104 H 118 H 114 H (75-99) mg/dL 08/31/21 08/31/21 08/31/21 Range/Units 05:15 05:47 05:47 RBC 3.15 L (4.30-5.90) m/uL Hgb 9.1 L (13.0-17.5) gm/dL Hct 29.5 L (39.0-53.0) % MCHC 30.8 L (31.0-37.0) g/dL RDW 18.3 H (11.5-15.5) % ABG pH 7.50 H (7.35-7.45) ABG HCO3 33 H (21-25) mmol/L ABG Total CO2 34 H (19-24) mmol/L ABG O2 Saturation 99.5 H (94-97) % BUN 25 H (9-20) mg/dL Glucose 107 H (74-99) mg/dL POC Glucose (mg/dL) (75-99) mg/dL 08/31/21 Range/Units 06:15 RBC (4.30-5.90) m/uL Hgb (13.0-17.5) gm/dL Hct (39.0-53.0) % MCHC (31.0-37.0) g/dL RDW (11.5-15.5) % ABG pH (7.35-7.45) ABG HCO3 (21-25) mmol/L ABG Total CO2 (19-24) mmol/L ABG O2 Saturation (94-97) % BUN (9-20) mg/dL Glucose (74-99) mg/dL POC Glucose (mg/dL) 113 H (75-99) mg/dL Microbiology - Last 24 Hours (Table) 08/26/21 11:21 Blood Culture - Preliminary Blood No Growth after 96 hours 08/26/21 11:00 Blood Culture - Preliminary Blood No Growth after 96 hours Assessment and Plan (1) Morbid (severe) obesity due to excess calories Current Visit: Yes Status: Acute Code(s): E66.01 - MORBID (SEVERE) OBESITY DUE TO EXCESS CALORIES SNOMED Code(s): 150793846 (2) BMI 45.0-49.9, adult Current Visit: Yes Status: Acute Code(s): Z68.42 - BODY MASS INDEX [BMI] 45.0-49.9, ADULT SNOMED Code(s): 490776649 (3) Inadequate dietary intake of protein Current Visit: Yes Status: Acute Code(s): E63.9 - NUTRITIONAL DEFICIENCY, UNSPECIFIED SNOMED Code(s): 507633237 (4) Tracheostomy sepsis Current Visit: Yes Status: Acute Code(s): J95.02 - INFECTION OF TRACHEOSTOMY STOMA SNOMED Code(s): 866239919 (5) Coronavirus infection Current Visit: Yes Status: Acute Code(s): B34.2 - CORONAVIRUS INFECTION, UNSPECIFIED SNOMED Code(s): 911932327 (6) Hypoxia Current Visit: Yes Status: Acute Code(s): R09.02 - HYPOXEMIA SNOMED Code(s): 415540322 (7) Pneumonia due to COVID-19 virus Current Visit: Yes Status: Acute Code(s): U07.1 - COVID-19; J12.82 - Pn eumonia due to coronavirus disease 2019 SNOMED Code(s): 933823008522738358
[2021-08-31 12:30] LABS: Glucose,Whole Blood 103 mg/dL (75-99)
--- NOTE | 2021-08-31 15:31 | P.PN ---
Subjective Progress Note Date: 08/31/21 Principal diagnosis: Acute hypoxic respiratory failure secondary to COVID-19 pneumonia On 08/25/2021, I'm seeing this patient for a follow-up. I'm pleased to report that the patient is awake and alert and following simple commands. He is weak. He is able to move his arms against gravity. Weakness is more in the lower extremities. Opens eyes spontaneously. His calm and comfortable. No agitation. He is off propofol. Is on fentanyl at 1.25 mcg/kg/h and he is also on Precedex at a dose of 0.7. He remains on a mechanical ventilator. As mentioned earlier, swish and poor pressure control mode of mechanical ventilation and this morning the patient is on a pressure control of 16, PEEP of 10, FiO2 of 40% and a rate of 26. His blood gases from today showed a pH of 7.5 0 with a pCO2 of 41 and pO2 of 62. He is having some limited amount of rest or secretions. Sputum culture will be sent. Meanwhile, the chest x-ray findings are essentially stable. Tracheostomy tube is in a good location. The [place] tracheostomy tube cuff is deflated for now. The balloon itself is malfunctioning is not holding any pressure. Nevertheless, we have not seen any significant air leak through his mouth nor around the tracheostomy tube stoma. NG tube is in place. He is receiving enteral feeding for nutritional support. He is on anticoagulation with Eliquis. No bleeding complications. He remains on Decadron at a dose of 10 mg by mouth daily. He is also diuresing with IV Lasix. He is receiving Lasix 40 mg IV every 12 hours. His overall fluid balance over the past 24 hours has been negative and the order of -1.8 L. His weight is also improving. All 4 extremity edema is also improving. Very happy with his progress. His was at the bedside. Arterial line will be removed. Reevaluated today on 08/26/21, patient remains in the ICU, intubated and mechanically ventilated. Patient is on pressure control mode of mechanical ventilation, with pressure control of 12, inspiratory time of 0.9, FiO2 is 40%, and PEEP of 10. ABG showed a pO2 of 72 pCO2 of 39 pH of 7.50 patient is on Precedex at 0.5 mcg/kg/h, he is also on IV fluid at KVO, he is not requiring any pressors. Today after evaluating the patient, I recommended switching the patient to pressure support mode of mechanical ventilation with a pressure support of 14, and I recommended that we keep him on a PEEP of 8 and FiO2 was increased to 45%. Patient is receiving Nepro for nutritional support, his peak airway pressure is only 27. He had a temp of 101 last night, presently 99.4. Sputum was sent for cultures. Patient remains on Lasix at 40 mg daily. Chest x-ray continues to show bilateral infiltrates. But significantly improved compared to baseline. Patient is arousable, and he is extremely weak but he is able to follow simple instructions. After placing the patient on pressure sup port, patient seems to be moving good tidal volumes, and his respiratory rate is in the high 20s. Low 30s. Seems to be fairly comfortable with a pressure support mode of mechanical ventilation. A shunt remains on the COVID-19 cocktail. Remains on Precedex. He is also on Seroquel 50 mg twice a day. Protonix 40 mg IV push twice a day. His also on Lopressor 50 mg twice a day. And labetalol as needed patient is also on Eliquis 5 mg twice a day for his history of pulmonary embolism. Patient was reevaluated today on 08/27/2021, remains in the ICU, intubated and mechanically ventilated. Yesterday the patient tolerated almost 24 hours of pressure support mode of mechanical ventilation with a pressure support of 14. However earlier this morning the patient was noted to be a bit more short of breath, he was placed back on a pressure control mode of mechanical ventilation, and FiO2 of 45%, PEEP of 8, patient is doing well and he seems to be more comfortable. No ABG was done this morning. Chest x-ray continues to bilateral infiltrates. Patient remains on Precedex, not requiring any pressors, not requiring any other form of sedation. Patient apparently developed critical illness Pollyneuromyopathy, and he seems to be steadily improving, and I have recommended physical therapy, today we'll plan to place him back on pressure support of 14 and a PEEP of 8, FiO2 will remain at 45%. Patient remains on anticoagulation therapy for his pulmonary embolism. He remains on tube feeds receiving Nepro at 59 mL per hour. Hemodynamically he is stable. And I'm hoping at least we could give him another trial today of pressure support after resting him for few hours on pressure control mode of mechanical ventilation. Basic metabolic profile is normal today. Count is 4.1 hemoglobin is 8.1. C. diff screening is negative. Chest x-ray is basically about the same, continues to show bilateral infiltrates. Patient was reevaluated today on 08/28/21, remains in the ICU, intubated and mechanically ventilated. Yesterday the patient had a setback, while the patient was on pressure support mode of weaning, and he was doing fine, suddenly the patient was gagging on his tracheostomy tube, and small amount of secretions came out through his mouth, patient went on to develop worsening leak around the tracheostomy and he was getting worse clinically as I was watching the patient. Hence I had to paralyze the patient and put him back on Nimbex, and adjusted the tracheostomy and adjusted his neck to the point there was no cuff leak any further. The cuff was actually not holding any air in the tracheostomy, and I have contacted the surgeon to arrange for possibly tracheostomy change as soon as possible. I was able to stabilize the airway however the patient had to be sedated and paralyzed in order to avoid further cuff leak. Overnight the patient was kept on mechanical ventilation, he is now on volume control/assist- control mode of mechanical ventilation, he is on assist control rate of 24th of volume 450 FiO2 50% and PEEP of 12. I was able to cut down his FiO2 to 45%. Discussed again with the surgeon this morning the plan to revise his trach and this was done shortly after my discussion with the surgeon. The surgeon had to use a retractor to open up the wound and make it more exposed, he used cautery and subcutaneous tissue divided then he was able to visualize the tracheostomy and then the endotracheal tube was pulled out under direct vision and a #8 Shile y XLT tracheostomy tube was placed in the trachea. Now that the patient is having a more stable airway/tracheostomy, I plan to discontinue Nimbex, and I plan to go back into cutting down on sedation as much as possible, and possibly go back to weaning mode of mechanical ventilation hopefully in the next 24 hours. But I would definitely discontinue Nimbex now the airway seems to be more stable. This morning the patient is on propofol at 75-3 mcg/kg/h he is also on Nimbex, and IV fluid at 20 mL per hour. Tube feeding was placed on hold yesterday, may consider restarting the tube feeding today. Patient continued to have intermittent episodes of fevers yesterday, low-grade, and I recommended empirically starting the patient on Zosyn. Chest x-ray continues to show bilateral infiltrates, not much of a car changer the last few days. Left lung seems to be more affected than the right lung. WBC count today is 5.6 hemoglobin is 9.4. electrolytes are normal renal profile is normal Reevaluated today on 08/29/21, patient remains in the ICU, intubated and mechanically ventilated. He is on assist control rate of 24 tidal volume 450 FiO2 45% PEEP of 12. Patient remains on propofol at 35 mcg/kg/m, he is also on fentanyl at 20 mcg/kg/h, and he is on IV fluid at KVO. His ABG today showed a pO2 of 87 pCO2 46 pH of 7.44. Patient underwent tracheostomy change yesterday by general surgery, and it seems to be functioning quite well. Patient remains on Nepro, not yet to goal, and the dose is being increased gradually. He is off Nimbex, and we are tapering his propofol and fentanyl and down, plan is to restart the patient on Precedex, and hopefully start some weaning trials probably again tomorrow. In spite of being on sedation, patient is arousable, he is actually awake, follows simple instructions, but he is noted to be profoundly weak. Asked x-ray is basically about the same showing bilateral infiltrates mostly right upper lobe and left lung. WBC count today is 6.1 hemog lobin is 9.9 electrolytes are normal, renal profile is normal Patient was reevaluated today on 08/30/21, patient remains in the ICU, remains intubated and mechanically ventilated, he is now on assist control rate of 24 tidal volume 450 FiO2 45% PEEP of 12 and I cut it down to 8. ABG showed a pO2 o f 95 pCO2 of 40 pH of 7.51. 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 Today I'm going to try the patient on pressure support of 14 and CPAP of 8, and I was watching the patient, he was maintaining good volumes with a pressure support of 14 volumes in the range of 450-500, and he was not in any distress, his rate was in the 20s. Obviously the patient seems to be tolerating pressure support of 14 and CPAP of 8. WBC count today is 8.1 hemoglobin is 9.1. Basic metabolic profile is normal renal profile is normal. Reevaluated today on 08/31/21, patient remains in the ICU, intubated and mechanically ventilated. However yesterday he was able to go for almost 10 hours on pressure support of 14 and CPAP. Patient is now back on pressure support 10 and CPAP, and I plan to keep him on this weaning mode of mechanical ventilation as long as he tolerates it. He seems to be very comfortable, his respiratory rate is in the mid to 20s tidal volume is in the range of 400 up to 500. Chest x-ray is basically about the same. His ABG today showed a pO2 of 103, pCO2 of 43 pH of 7.50. Basic metabolic profile is normal CBC is relatively normal hemoglobin is 9.1. Objective - Vital Signs Vital signs: Vital Signs Temp 99.5 F 08/31/21 12:00 Pulse 94 08/31/21 15:00 Resp 20 08/31/21 15:00 BP 113/73 08/31/21 15:00 Pulse Ox 96 08/31/21 15:00 Intake & Output 08/30/21 08/31/21 08/31/21 18:59 06:59 18:59 Intake Total 625.594 786.148 417.891 Output Total 4231 682 6716 Balance -494.406 371.148 -1482.109 Weight 112.4 kg 111.9 kg Intake: IV 440 220 280 Piperacillin-Tazobactam 3 310 100 100 .375 gm In Sodium Chloride 0.9% 100 ml @ 25 mls/hr IVPB Q8HR [facility] Rx# :[id number] Sodium Chloride 0.9% 1, 130 120 180 000 ml @ 20 mls/hr IV . Q24H [facility] Rx#:[id number] Intake, IV Titration 33.594 156.148 17.891 Amount Dexmedetomidine/0.9% NaCl 33.594 156.148 17.891 (Pmx) 400 mcg In Empty Bag 1 bag @ 0.2 MCG/KG/HR 5.71 mls/hr IV .[id number] [facility] Rx#:[id number] Tube Feeding 152 320 120 Other 90 Output: Urine 0900 654 0462 Emesis 200 Other: Voiding Method Indwelling Catheter Indwelling Catheter Indwelling Catheter # Bowel Movements 1 ABP, PAP, CO, CI - Last Documented Arterial Blood Pressure 120/59 - Exam Physical Exam: Revealed 31-year-old -Swedish male, on mechanical ventilation, awake, follows instructions. On Precedex at 0.4 micrograms per kilo per hour Head: Atraumatic, normocephalic. HEENT: Short obese neck. [Neck is supple.] [No neck masses.] [No thyromegaly.] [No JVD.] Tracheostomy is intact Chest: [Symmetrical chest expansion, fine crackles at the bases. Cardiac Exam: Distant S1 and S2, no S3 gallop, no murmur. Abdomen: [Obese, soft, nontender, no megaly, no rebound, no guarding. Extremities: No clubbing, trace of edema, no cyanosis. Neurological Exam: Awake, follows simple instructions profoundly weak Psychiatric: Normal mood, blunt affect, follows simple instructions. Musculoskeletal: No deformities Skin: No rashes. - Labs CBC & Chem 7: 08/31/21 05:47 08/31/21 05:47 Labs: Abnormal Lab Results - Last 24 Hours (Table) 08/30/21 08/31/21 08/31/21 Range/Units 17:37 00:23 05:15 RBC (4.30-5.90) m/uL Hgb (13.0-17.5) gm/dL Hct (39.0-53.0) % MCHC (31.0-37.0) g/dL RDW (11.5-15.5) % ABG pH 7.50 H (7.35-7.45) ABG HCO3 33 H (21-25) mmol/L ABG Total CO2 34 H (19-24) mmol/L ABG O2 Saturation 99.5 H (94-97) % BUN (9-20) mg/dL Glucose (74-99) mg/dL POC Glucose (mg/dL) 118 H 114 H (75-99) mg/dL 08/31/21 08/31/21 08/31/21 Range/Units 05:47 05:47 06:15 RBC 3.15 L (4.30-5.90) m/uL Hgb 9.1 L (13.0-17.5) gm/dL Hct 29.5 L (39.0-53.0) % MCHC 30.8 L (31.0-37.0) g/dL RDW 18.3 H (11.5-15.5) % ABG pH (7.35-7.45) ABG HCO3 (21-25) mmol/L ABG Total CO2 (19-24) mmol/L ABG O2 Saturation (94-97) % BUN 25 H (9-20) mg/dL Glucose 107 H (74-99) mg/dL POC Glucose (mg/dL) 113 H (75-99) mg/dL 08/31/21 Range/Units 12:28 RBC (4.30-5.90) m/uL Hgb (13.0-17.5) gm/dL Hct (39.0-53.0) % MCHC (31.0-37.0) g/dL RDW (11.5-15.5) % ABG pH (7.35-7.45) ABG HCO3 (21-25) mmol/L ABG Total CO2 (19-24) mmol/L ABG O2 Saturation (94-97) % BUN (9-20) mg/dL Glucose (74-99) mg/dL POC Glucose (mg/dL) 103 H (75-99) mg/dL Microbiology - Last 24 Hours (Table) 08/26/21 11:21 Blood Culture - Preliminary Blood No Growth after 120 hours 08/26/21 11:00 Blood Culture - Preliminary Blood No Growth after 120 hours Assessment and Plan Assessment: Impression: Acute hypoxic respiratory failure secondary to COVID-19 pneumonia, intubated on August 06, tracheostomy August 14, on pressure support mode of mechanical ventilation August 26. And also on pressure support mode of mechanical ventilation on August 27, however the patient developed significant air leak from the tracheostomy, required placing the patient back on Nimbex, and on fentanyl as well as propofol. Yesterday, patient went on pressure support and CPAP and today he is on pressure support of 10 and CPAP of 8. Seems to be well tolerated so far. ARDS secondary to COVID-19 pneumonia, improving. Elevated inflammatory markers secondary to COVID-19 pneumonia, improving. Acute pulmonary embolism secondary to COVID-19 pneumonia back on Eliquis. Elevated liver enzymes secondary to COVID-19 pneumonia and infection, improved. Morbid obesity, BMI of 42.3. Benign essential hypertension. Acute kidney injury/resolved.. Status post tracheostomy because of failure to wean. Status post revision of tracheostomy on 08/28/20 done by general surgery. 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 And daily trials of weaning. Continue Zosyn empirically. Continue Decadron Continue Eliquis. enteral feeding. Continue GI and DVT prophylaxis. Overall the patient is improving but remains relatively critically ill. Critical care time is over 30 minutes Time with Patient: Greater than 30
[2021-08-31] MEDS: POTASSIUM BICARBONATE/CIT AC 20 MEQ TABLET.EFF NG-TUBE SCH ×2 (16:23→18:39)
[2021-08-31] MEDS: SODIUM CHLORIDE 0.9% 1,000 ML IV SCH (16:23)
[2021-08-31 18:04] LABS: Glucose,Whole Blood 113 mg/dL (75-99)
[2021-08-31 23:31] LABS: Glucose,Whole Blood 110 mg/dL (75-99)
[2021-09-01] MEDS: DEXMEDETOMIDINE/0.9% NACL(PMX) 400 MCG in EMPTY BAG 1 BAG IV SCH ×3 (01:36→18:03)
[2021-09-01 04:13] LABS: Anisocytosis Slight; HGB 9.2 gm/dL (13.0-17.5); Hypochromasia Marked; MCHC 29.5 g/dL (31.0-37.0); Macrocytosis Slight; Mean Platelet Volume 9.4; Platelet Count 391 k/uL (150-450); RBC 3.27 m/uL (4.30-5.90); RDW 18.1 % (11.5-15.5); WBC 9.9 k/uL (3.8-10.6)
[2021-09-01 04:34] LABS: African American GFR (CKD) >90 (>60 ml/min/1.73 sqM); Anion Gap 9 mmol/L; Blood Urea Nitrogen 25 mg/dL (9-20); Carbon Dioxide 29 mmol/L (22-30); Chloride 101 mmol/L (98-107); Glucose 113 mg/dL (74-99); Magnesium 1.9 mg/dL (1.6-2.3); Non-African American GFR(CKD) >90 (>60 ml/min/1.73 sqM); Potassium 3.4 mmol/L (3.5-5.1); Sodium 139 mmol/L (137-145)
[2021-09-01] MEDS: POTASSIUM CHLORIDE 20 MEQ in WATER FOR INJECTION 1 100ML.BAG IVPB SCH ×2 (05:03→06:41)
[2021-09-01 06:01] LABS: Glucose,Whole Blood 110 mg/dL (75-99)
[2021-09-01] MEDS: INSULIN ASPART (NovoLOG) 100 UNIT/ML VIAL SQ SCH ×3 (06:04→18:36)
--- NOTE | 2021-09-01 07:21 | XR ---
EXAMINATION TYPE: XR chest 1V portable DATE OF EXAM: 09/01/2021 COMPARISON: Chest x-ray 08/31/2021 HISTORY: Covid TECHNIQUE: Single frontal view of the chest is obtained. FINDINGS: There is no significant interval change. Tracheostomy tube and NG tube are overlying appro priate positions. Left-sided PICC line is stable. Bilateral airspace disease is similar, cardiac medi astinal silhouette is unchanged. No evident pneumothorax or pleural effusion. IMPRESSION: Stable abnormal exam, correlate for pneumonia, ARDS
--- NOTE | 2021-09-01 07:29 | XR ---
EXAMINATION TYPE: XR chest 1V portable DATE OF EXAM: 09/01/2021 COMPARISON: Chest x-ray 09/01/2021 and earlier time HISTORY: NG tube placement TECHNIQUE: Single frontal view of the chest is obtained. FINDINGS: Distal tip of the NG tube is not included on the exam but is coursing through the region o f the stomach. No significant interval change. IMPRESSION: Stable findings.
[2021-09-01] MEDS: ALBUTEROL HFA INHALER INHALATION PRN ×2 (07:55→11:43)
[2021-09-01] MEDS: PIPERACILLIN-TAZOBACTAM 3.375 GM in SODIUM CHLORIDE 0.9% 100 ML IVPB SCH ×2 (09:13→16:58)
[2021-09-01] MEDS: CHLORHEXIDINE GLUCONATE 15 ML CUP MUCOUS MEM SCH ×2 (09:14→19:52)
[2021-09-01] MEDS: bisacodyL 10 MG SUPP RECTAL SCH (09:15)
[2021-09-01] MEDS: ZINC SULFATE 220 MG CAP PO SCH (09:15)
[2021-09-01] MEDS: SENNOSIDES-DOCUSATE SODIUM 1 EACH TAB PO SCH (09:15)
[2021-09-01] MEDS: hydrALAZINE HCL 25 MG TAB PO SCH ×3 (09:15→19:53)
[2021-09-01] MEDS: QUEtiapine 25 MG TAB PO SCH ×2 (09:15→20:06)
[2021-09-01] MEDS: amLODIPine 5 MG TAB PO SCH ×2 (09:16→19:53)
[2021-09-01] MEDS: ASCORBIC ACID 500 MG TAB PO SCH (09:16)
[2021-09-01] MEDS: FUROSEMIDE 10 MG/ML 4 ML VIAL IV SCH (09:16)
[2021-09-01] MEDS: CHOLECALCIFEROL 25 MCG (1000 IU) TABLET PO SCH (09:16)
[2021-09-01] MEDS: METOPROLOL TARTRATE 50 MG TAB PO SCH ×2 (09:16→19:53)
[2021-09-01] MEDS: PANTOPRAZOLE 40 MG/10 ML VIAL IVP SCH ×2 (09:16→19:53)
[2021-09-01] MEDS: APIXABAN 5 MG TAB PO SCH ×2 (09:16→19:53)
[2021-09-01 11:33] LABS: Glucose,Whole Blood 120 mg/dL (75-99)
--- NOTE | 2021-09-01 13:09 | P.PN ---
Subjective Progress Note Date: 09/01/21 CHIEF COMPLAINT: Covid pneumonia HISTORY OF PRESENT ILLNESS: The patient is a 31-year-old male admitted with pneumonia due to Covid. He is mechanically ventilated. He had a revision of his tracheostomy. He is on tube feeds. He is awake. He is undergoing weaning trials. Yesterday, he tolerated pressure support well. He is moving in bed. REVIEW OF ORGAN SYSTEMS: No fevers or chills. Mechanically ventilated. Morbid obesity with BMI 46.7, now 42.3 PHYSICAL EXAM: VITAL SIGNS: Stable GENERAL: Well-developed pleasant in no acute distress. HEENT: No scleral icterus. Extraocular movements grossly intact. Moist buccal mucosa. Tracheostomy intact CHEST: Mechanical ventilation with equal bilateral excursions. CARDIOVASCULAR: Regular rate and rhythm. ABDOMEN: Protuberant. No peritonitis. MUSCULOSKELETAL: No clubbing, cyanosis. NEURO: No focal or lateralizing signs. SKIN: Well perfused. PSYCH: Awake and alert. LABS: Reviewed. WBC normal at 8.3, now 9.9.. Hemoglobin 9.1 now 9.2 with anemia ASSESSMENT: 1. Covid pneumonia 2. Inadequate oral intake with protein malnutrition 3. Status post gastrostomy tube placement 4. Status post tracheostomy with revision 5. Morbid obesity due to excess calories, BMI 46.7, now 42.3 6. Anemia PLAN: 1. Continue supportive care due to Covid pneumonia 2. Continue weaning trials as tolerated. 3. Continue tube feeds. Objective - Vital Signs Vital signs: Vital Signs Temp 99.9 F H 09/01/21 12:00 Pulse 102 H 09/01/21 12:30 Resp 27 H 09/01/21 12:30 BP 121/65 09/01/21 12:30 Pulse Ox 97 09/01/21 12:30 Intake & Output 08/31/21 09/01/21 09/01/21 18:59 06:59 18:59 Intake Total 767.855 9948 671.931 Output Total 2028 480 1065 Balance -1390.272 720 -393.069 Weight 110.9 kg Intake: IV 360 240 180 Piperacillin-Tazobactam 3 100 100 100 .375 gm In Sodium Chloride 0.9% 100 ml @ 25 mls/hr IVPB Q8HR [facility] Rx# :[id number] Sodium Chloride 0.9% 1, 260 140 80 000 ml @ 20 mls/hr IV . Q24H [facility] Rx#:[id number] Intake, IV Titration 107.728 200 191.931 Amount Dexmedetomidine/0.9% NaCl 107.728 100 91.931 (Pmx) 400 mcg In Empty Bag 1 bag @ 0.2 MCG/KG/HR 5.71 mls/hr IV .[id number] [facility] Rx#:[id number] Potassium Chloride 20 meq 100 100 In Water For Injection 1 100ml.bag @ 50 mls/hr IVPB Q2H [facility] Rx#: [id number] Tube Feeding 170 670 240 Other 90 60 Output: Urine 6486 028 6697 Emesis 200 Other: Voiding Method Indwelling Catheter Indwelling Catheter Indwelling Catheter # Bowel Movements 1 ABP, PAP, CO, CI - Last Documented Arterial Blood Pressure 120/59 - Labs CBC & Chem 7: 09/01/21 03:19 09/01/21 03:19 Labs: Abnormal Lab Results - Last 24 Hours (Table) 08/31/21 08/31/21 09/01/21 Range/Units 18:02 23:28 03:19 RBC 3.27 L (4.30-5.90) m/uL Hgb 9.2 L (13.0-17.5) gm/dL Hct 31.0 L (39.0-53.0) % MCHC 29.5 L (31.0-37.0) g/dL RDW 18.1 H (11.5-15.5) % Potassium (3.5-5.1) mmol/L BUN (9-20) mg/dL Glucose (74-99) mg/dL POC Glucose (mg/dL) 113 H 110 H (75-99) mg/dL 09/01/21 09/01/21 09/01/21 Range/Units 03:19 06:00 11:31 RBC (4.30-5.90) m/uL Hgb (13.0-17.5) gm/dL Hct (39.0-53.0) % MCHC (31.0-37.0) g/dL RDW (11.5-15.5) % Potassium 3.4 L (3.5-5.1) mmol/L BUN 25 H (9-20) mg/dL Glucose 113 H (74-99) mg/dL POC Glucose (mg/dL) 110 H 120 H (75-99) mg/dL Microbiology - Last 24 Hours (Table) 08/26/21 11:21 Blood Culture - Preliminary Blood No Growth after 120 hours 08/26/21 11:00 Blood Culture - Preliminary Blood No Growth after 120 hours Assessment and Plan (1) Morbid (severe) obesity due to excess calories Current Visit: Yes Status: Acute Code(s): E66.01 - MORBID (SEVERE) OBESITY DUE TO EXCESS CALORIES SNOMED Code(s): 372959401 (2) BMI 45.0-49.9, adult Current Visit: Yes Status: Acute Code(s): Z68.42 - BODY MASS INDEX [BMI] 45.0-49.9, ADULT SNOMED Code(s): 111427186 (3) Inadequate dietary intake of protein Current Visit: Yes Status: Acute Code(s): E63.9 - NUTRITIONAL DEFICIENCY, UNSPECIFIED SNOMED Code(s): 937379801 (4) Tracheostomy sepsis Current Visit: Yes Status: Acute Code(s): J95.02 - INFECTION OF TRACHEOSTOMY STOMA SNOMED Code(s): 479200806 (5) Coronavirus infection Current Visit: Yes Status: Acute Code(s): B34.2 - CORONAVIRUS INFECTION, UNSPECIFIED SNOMED Code(s): 250362840 (6) Hypoxia Current Visit: Yes Status: Acute Code(s): R09.02 - HYPOXEMIA SNOMED Code(s): 258573663 (7) Pneumonia due to COVID-19 virus Current Visit: Yes Status: Acute Code(s): U07.1 - COVID-19; J12.82 - Pneumonia due to coronavirus disease 2019 SNOMED Code(s): 614655739293683324
--- NOTE | 2021-09-01 16:13 | P.PN ---
Subjective Progress Note Date: 09/01/21 Principal diagnosis: Acute hypoxic respiratory failure secondary to COVID-19 pneumonia On 08/25/2021, I'm seeing this patient for a follow-up. I'm pleased to report that the patient is awake and alert and following simple commands. He is weak. He is able to move his arms against gravity. Weakness is more in the lower extremities. Opens eyes spontaneously. His calm and comfortable. No agitation. He is off propofol. Is on fentanyl at 1.25 mcg/kg/h and he is also on Precedex at a dose of 0.7. He remains on a mechanical ventilator. As mentioned earlier, swish and poor pressure control mode of mechanical ventilation and this morning the patient is on a pressure control of 16, PEEP of 10, FiO2 of 40% and a rate of 26. His blood gases from today showed a pH of 7.5 0 with a pCO2 of 41 and pO2 of 62. He is having some limited amount of rest or secretions. Sputum culture will be sent. Meanwhile, the chest x-ray findings are essentially stable. Tracheostomy tube is in a good location. The B[place] tracheostomy tube cuff is deflated for now. The balloon itself is malfunctioning is not holding any pressure. Nevertheless, we have not seen any significant air leak through his mouth nor around the tracheostomy tube stoma. NG tube is in place. He is receiving enteral feeding for nutritional support. He is on anticoagulation with Eliquis. No bleeding complications. He remains on Decadron at a dose of 10 mg by mouth daily. He is also diuresing with IV Lasix. He is receiving Lasix 40 mg IV every 12 hours. His overall fluid balance over the past 24 hours has been negative and the order of -1.8 L. His weight is also improving. All 4 extremity edema is also improving. Very happy with his progress. His was at the bedside. Arterial line will be removed. Reevaluated today on 08/26/21, patient remains in the ICU, intubated and mechanically ventilated. Patient is on pressure control mode of mechanical ventilation, with pressure control of 12, inspiratory time of 0.9, FiO2 is 40%, and PEEP of 10. ABG showed a pO2 of 72 pCO2 of 39 pH of 7.50 patient is on Precedex at 0.5 mcg/kg/h, he is also on IV fluid at KVO, he is not requiring any pressors. Today after evaluating the patient, I recommended switching the patient to pressure support mode of mechanical ventilation with a pressure support of 14, and I recommended that we keep him on a PEEP of 8 and FiO2 was increased to 45%. Patient is receiving Nepro for nutritional support, his peak airway pressure is only 27. He had a temp of 101 last night, presently 99.4. Sputum was sent for cultures. Patient remains on Lasix at 40 mg daily. Chest x-ray continues to show bilateral infiltrates. But significantly improved compared to baseline. Patient is arousable, and he is extremely weak but he is able to follow simple instructions. After placing the patient on pressure sup port, patient seems to be moving good tidal volumes, and his respiratory rate is in the high 20s. Low 30s. Seems to be fairly comfortable with a pressure support mode of mechanical ventilation. A shunt remains on the COVID-19 cocktail. Remains on Precedex. He is also on Seroquel 50 mg twice a day. Protonix 40 mg IV push twice a day. His also on Lopressor 50 mg twice a day. And labetalol as needed patient is also on Eliquis 5 mg twice a day for his history of pulmonary embolism. Patient was reevaluated today on 08/27/2021, remains in the ICU, intubated and mechanically ventilated. Yesterday the patient tolerated almost 24 hours of pressure support mode of mechanical ventilation with a pressure support of 14. However earlier this morning the patient was noted to be a bit more short of breath, he was placed back on a pressure control mode of mechanical ventilation, and FiO2 of 45%, PEEP of 8, patient is doing well and he seems to be more comfortable. No ABG was done this morning. Chest x-ray continues to bilateral infiltrates. Patient remains on Precedex, not requiring any pressors, not requiring any other form of sedation. Patient apparently developed critical illness Pollyneuromyopathy, and he seems to be steadily improving, and I have recommended physical therapy, today we'll plan to place him back on pressure support of 14 and a PEEP of 8, FiO2 will remain at 45%. Patient remains on anticoagulation therapy for his pulmonary embolism. He remains on tube feeds receiving Nepro at 59 mL per hour. Hemodynamically he is stable. And I'm hoping at least we could give him another trial today of pressure support after resting him for few hours on pressure control mode of mechanical ventilation. Basic metabolic profile is normal today. Count is 4.1 hemoglobin is 8.1. C. diff screening is negative. Chest x-ray is basically about the same, continues to show bilateral infiltrates. Patient was reevaluated today on 08/28/21, remains in the ICU, intubated and mechanically ventilated. Yesterday the patient had a setback, while the patient was on pressure support mode of weaning, and he was doing fine, suddenly the patient was gagging on his tracheostomy tube, and small amount of secretions came out through his mouth, patient went on to develop worsening leak around the tracheostomy and he was getting worse clinically as I was watching the patient. Hence I had to paralyze the patient and put him back on Nimbex, and adjusted the tracheostomy and adjusted his neck to the point there was no cuff leak any further. The cuff was actually not holding any air in the tracheostomy, and I have contacted the surgeon to arrange for possibly tracheostomy change as soon as possible. I was able to stabilize the airway however the patient had to be sedated and paralyzed in order to avoid further cuff leak. Overnight the patient was kept on mechanical ventilation, he is now on volume control/assist- control mode of mechanical ventilation, he is on assist control rate of 24th of volume 450 FiO2 50% and PEEP of 12. I was able to cut down his FiO2 to 45%. Discussed again with the surgeon this morning the plan to revise his trach and this was done shortly after my discussion with the surgeon. The surgeon had to use a retractor to open up the wound and make it more exposed, he used cautery and subcutaneous tissue divided then he was able to visualize the tracheostomy and then the endotracheal tube was pulled out under direct vision and a #8 Shile y XLT tracheostomy tube was placed in the trachea. Now that the patient is having a more stable airway/tracheostomy, I plan to discontinue Nimbex, and I plan to go back into cutting down on sedation as much as possible, and possibly go back to weaning mode of mechanical ventilation hopefully in the next 24 hours. But I would definitely discontinue Nimbex now the airway seems to be more stable. This morning the patient is on propofol at 75-3 mcg/kg/h he is also on Nimbex, and IV fluid at 20 mL per hour. Tube feeding was placed on hold yesterday, may consider restarting the tube feeding today. Patient continued to have intermittent episodes of fevers yesterday, low-grade, and I recommended empirically starting the patient on Zosyn. Chest x-ray continues to show bilateral infiltrates, not much of a exchange teller the last few days. Left lung seems to be more affected than the right lung. WBC count today is 5.6 hemoglobin is 9.4. electrolytes are normal renal profile is normal Reevaluated today on 08/29/21, patient remains in the ICU, intubated and mechanically ventilated. He is on assist control rate of 24 tidal volume 450 FiO2 45% PEEP of 12. Patient remains on propofol at 35 mcg/kg/m, he is also on fentanyl at 20 mcg/kg/h, and he is on IV fluid at KVO. His ABG today showed a pO2 of 87 pCO2 46 pH of 7.44. Patient underwent tracheostomy change yesterday by general surgery, and it seems to be functioning quite well. Patient remains on Nepro, not yet to goal, and the dose is being increased gradually. He is off Nimbex, and we are tapering his propofol and fentanyl and down, plan is to restart the patient on Precedex, and hopefully start some weaning trials probably again tomorrow. In spite of being on sedation, patient is arousable, he is actually awake, follows simple instructions, but he is noted to be profoundly weak. Asked x-ray is basically about the same showing bilateral infiltrates mostly right upper lobe and left lung. WBC count today is 6.1 hemog lobin is 9.9 electrolytes are normal, renal profile is normal Patient was reevaluated today on 08/30/21, patient remains in the ICU, remains intubated and mechanically ventilated, he is now on assist control rate of 24 tidal volume 450 FiO2 45% PEEP of 12 and I cut it down to 8. ABG showed a pO2 o f 95 pCO2 of 40 pH of 7.51. 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 Today I'm going to try the patient on pressure support of 14 and CPAP of 8, and I was watching the patient, he was maintaining good volumes with a pressure support of 14 volumes in the range of 450-500, and he was not in any distress, his rate was in the 20s. Obviously the patient seems to be tolerating pressure support of 14 and CPAP of 8. WBC count today is 8.1 hemoglobin is 9.1. Basic metabolic profile is normal renal profile is normal. Reevaluated today on 08/31/21, patient remains in the ICU, intubated and mechanically ventilated. However yesterday he was able to go for almost 10 hours on pressure support of 14 and CPAP. Patient is now back on pressure support 10 and CPAP, and I plan to keep him on this weaning mode of mechanical ventilation as long as he tolerates it. He seems to be very comfortable, his respiratory rate is in the mid to 20s tidal volume is in the range of 400 up to 500. Chest x-ray is basically about the same. His ABG today showed a pO2 of 103, pCO2 of 43 pH of 7.50. Basic metabolic profile is normal CBC is relatively normal hemoglobin is 9.1. Reevaluated today on 09/01/21, patient remains in the ICU, intubated, mechanically ventilated, yesterday the patient tolerated over 16 hours of pressure support of 10 and CPAP, and today I'm recommending that the patient goes on pressure support of 8 CPAP/5. Patient seems to be doing great, and I have a strong feeling that maybe later on today I couldn't transition the patient to a trach collar. Patient is awake, he was just transitioned from assist-control mode of mechanical ventilation to pressure support of 10 and CPAP, and a change in her on to pressure support of 8. Chest x-ray continues to show same infiltrates in the left lung and right upper lobe. Not much of a change. Clinically however the patient seems to be improving. CBC is relatively normal hemoglobin is 9.2 electrolytes are normal renal profile is normal. Objective - Vital Signs Vital signs: Vital Signs Temp 99.9 F H 09/01/21 12:00 Pulse 105 H 09/01/21 15:00 Resp 30 H 09/01/21 15:00 BP 124/73 09/01/21 15:00 Pulse Ox 97 09/01/21 15:00 Intake & Output 10/09/01/21 09/01/21 18:59 06:59 18:59 Intake Total 049.896 0387 911.931 Output Total 2028 480 1315 Balance -1390.272 720 -403.069 Weight 110.9 kg Intake: IV 360 240 240 Piperacillin-Tazobactam 3 100 100 100 .375 gm In Sodium Chloride 0.9% 100 ml @ 25 mls/hr IVPB Q8HR [facility] Rx# :[id number] Sodium Chloride 0.9% 1, 260 140 140 000 ml @ 20 mls/hr IV . Q24H [facility] Rx#:[id number] Intake, IV Titration 107.728 200 191.931 Amount Dexmedetomidine/0.9% NaCl 107.728 100 91.931 (Pmx) 400 mcg In Empty Bag 1 bag @ 0.2 MCG/KG/HR 5.71 mls/hr IV .[id number] [facility] Rx#:[id number] Potassium Chloride 20 meq 100 100 In Water For Injection 1 100ml.bag @ 50 mls/hr IVPB Q2H [facility] Rx#: [id number] Tube Feeding 170 670 420 Other 90 60 Output: Urine 5444 662 9000 Emesis 200 Other: Voiding Method Indwelling Catheter Indwelling Catheter Indwelling Catheter # Bowel Movements 1 ABP, PAP, CO, CI - Last Documented Arterial Blood Pressure 120/59 - Exam Physical Exam: Revealed 31-year-old -Citizen Of The [place] male, on mechanical ventilation, awake, follows instructions. Head: Atraumatic, normocephalic. HEENT: Short obese neck. [Neck is supple.] [No neck masses.] [No thyromegaly.] [No JVD.] Tracheostomy is intact Chest: [Symmetrical chest expansion, fine crackles at the bases. Cardiac Exam: Distant S1 and S2, no S3 gallop, no murmur. Abdomen: [Obese, soft, nontender, no megaly, no rebound, no guarding. Extremities: No clubbing, trace of edema, no cyanosis. Neurological Exam: Awake, follows simple instructions profoundly weak Psychiatric: Normal mood, blunt affect, follows simple instructions. Musculoskeletal: No deformities Skin: No rashes. - Labs CBC & Chem 7: 09/01/21 03:19 09/01/21 03:19 Labs: Abnormal Lab Results - Last 24 Hours (Table) 08/31/21 08/31/21 09/01/21 Range/Units 18:02 23:28 03:19 RBC 3.27 L (4.30-5.90) m/uL Hgb 9.2 L (13.0-17.5) gm/dL Hct 31.0 L (39.0-53.0) % MCHC 29.5 L (31.0-37.0) g/dL RDW 18.1 H (11.5-15.5) % Potassium (3.5-5.1) mmol/L BUN (9-20) mg/dL Glucose (74-99) mg/dL POC Glucose (mg/dL) 113 H 110 H (75-99) mg/dL 09/01/21 09/01/21 09/01/21 Range/Units 03:19 06:00 11:31 RBC (4.30-5.90) m/uL Hgb (13.0-17.5) gm/dL Hct (39.0-53.0) % MCHC (31.0-37.0) g/dL RDW (11.5-15.5) % Potassium 3.4 L (3.5-5.1) mmol/L BUN 25 H (9-20) mg/dL Glucose 113 H (74-99) mg/dL POC Glucose (mg/dL) 110 H 120 H (75-99) mg/dL Microbiology - Last 24 Hours (Table) 08/26/21 11:21 Blood Culture - Final Blood No Growth after 144 hours 08/26/21 11:00 Blood Culture - Final Blood No Growth after 144 hours Assessment and Plan Assessment: Impression: Acute hypoxic respiratory failure secondary to COVID-19 pneumonia, intubated on August 06, tracheostomy August 14, on pressure support mode of mechanical ventilation August 26. And also on pressure support mode of mechanical ventilation on August 27, however the patient developed significant air leak from the tracheostomy, required placing the patient back on Nimbex, and on fentanyl as well as propofol. Patient was on pressure support of 10 and CPAP yesterday, and today he is going on pressure support of 8 and CPAP, may even place the patient on trach collar later today. ARDS secondary to COVID-19 pneumonia, improving. Elevated inflammatory markers secondary to COVID-19 pneumonia, improving. Acute pulmonary embolism secondary to COVID-19 pneumonia back on Eliquis. Elevated liver enzymes secondary to COVID-19 pneumonia and infection, improved. Morbid obesity, BMI of 42.3. Benign essential hypertension. Acute kidney injury/resolved.. Status post tracheostomy because of failure to wean. Status post revision of tracheostomy on 08/28/20 done by general surgery. 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 Recommendation: Intermittent trial of pressure support and CPAP, consider even trach collar trials later today.. Continue Zosyn empirically. Continue Decadron Continue Eliquis. enteral feeding. Continue GI and DVT prophylaxis. Overall the patient is improving but remains relatively critically ill. Critical care time is over 30 minutes We plan to seriously consider transferring the patient eventually to select care specialty, however prior to sending him to select care specialty, patient may need a Dobbhoff placement to replace his present nasogastric tube. This will be decided upon in the next 24 hours when the patient is fully accepted at the rehab facility. Time with Patient: Greater than 30
[2021-09-01] MEDS: ACETAMINOPHEN TAB 325 MG TAB PO PRN (16:58)
[2021-09-01] MEDS: SODIUM CHLORIDE 0.9% 1,000 ML IV SCH (16:59)
[2021-09-01 18:05] LABS: Glucose,Whole Blood 107 mg/dL (75-99)
--- NOTE | 2021-09-01 20:53 | P.PN ---
Subjective Progress Note Date: 09/01/21 Principal diagnosis: COVID-19 bilateral pneumonia Acute hypoxic respiratory failure 31 years old -Thai man with no significant past medical history presents with dyspnea which started yesterday associated with fever and coughing. Patient tested positive for covid earlier on Thursday after he felt with fever and cough on Thursday but at that time he was not dyspneic. He denies chest pain or abdominal pain but he has diarrhea on and off. No vomiting. He is saturating 89% on 6 L oxygen via nasal cannula, afebrile. Tachypneic with a breathing rate at 23. CBC, is unremarkable. INR is normal at 1.0. Sodium is 1:30, creatinine normal at 1.1, glucose 103. AST is mildly elevated 106 and ALT mildly elevated 106. Elevated lactate dehydrogenase 2600 and C-reactive protein 20.3. Cholelithiasis positive EKG shows sinus tachycardia and [address]-T changes Chest x-ray showing bilateral infiltrates 08/03/2021 patient is seen and evaluated ; continues to have difficulty breathing secondary to COVID-19 pneumonia. Earlier this morning at around 4 AM, the patient had a spell where he had an increased cough and in between he was unable to catch his breath and the patient desaturated. At that point, he was placed on BiPAP. He was quite hypoxic and he gradually build himself up and currently is back on 14/7 cm of water with an FiO2 of 90%. He is currently holding his BiPAP mask on his face. He is comfortable. He is also willing to consider to go back on high flow oxygen in addition to 100% on a beta facemask. --He remains on Decadron 6 mg on a daily basis. He remains on Baricitinib 4 mg on a daily basis. He remains on Lovenox 40 mg subcu on a daily basis. Labs are reviewed and reveal white cell count is at 9.8 with hemoglobin of 12.1. His d-dimer from 08/01/2021 was 1.87. Creatinine is at 1.09 with a BUN of 30 and the rest of the electrodes are all within normal limits. He is afebrile. He is tolerating his diet as the patient is able to eat in between different modes of oxygen delivery. He did have a spike of temperature of 11.6 yesterday. He is tachypneic his breathing is labored. Continue BiPAP treatment alternating with high flow oxygen at 6 L with an FiO2 of 90% Will monitor this patient on the medical floor and transferred to the intensive care unit if there is any worsening 08/04/2021 the patient is somewhat better compared to yesterday. - The patient gradually improved since then and currently is on high flow oxygen and 60 L of FiO2 of 90% in addition to 100% nonrebreather facemask; He remains on Decadron 6 mg on a daily basis and addition to Baricitinib 4 mg by mouth rachna; Lovenox and the dose is adjusted to 60 mg subcu every 12 hours because of an elevated d-dimer of 14.3. Meanwhile, his LDH still elevated at 2954 and a CRP still elevated at 13.8. Platelet electrodes are all within normal limits. His white cell count of 15.3 with hemoglobin of 13.4. Chest x- ray from today was reviewed and was compared to the earlier chest x-ray showed improvement in the inspiratory effort and there is also improvement in the right basilar consolidation. However there is still persistent and diffuse breath and pulmonary infiltrates perihilar and lower lobes bilaterally. Patient is awake and alert. No altered mentation. No other new complaints otherwise for now. 08/16/2021 The patient was admitted to the hospital with coronavirus associated pneumonia; moved to the intensive care unit on August 06, and intubated on the same day. He remains on the mechanical ventilator. --On August 14, the patient underwent tracheostomy. The PEG tube was attempted, but was not able to be done. Ventilator settings include the volume assist control mode White count 15.7, hemoglobin 7.5, hematocrit 23.9, platelet count 429,000. D- dimer was 5.08. Sodium 137, potassium 4.7, chlorides 107, CO2 24, anion gap is 6, BUN 41, creatinine 1.30. Albumin is 2.8. C-reactive protein is 3.8. Chest x-ray shows diffuse bilateral infiltrates. No change in chest x-ray compared to prior x-rays. Patient remains in intensive care unit with critical care on board; remains on IV Zosyn and Levaquin; cultures are negative so far; critical coronary recommending to continue with current management at this time 08/17/2021 Patient is seen and evaluated in ICU; remains on the mechanical ventilator; patient underwent tracheostomy. Arterial blood gases show pO2 of 81, pCO2 48, and a pH is 7.36. The patient's on saline at 20 mL an hour, fentanyl at 4 mcg/kg/h, propofol at 75 mcg/kg/m, Nimbex at 3 g kilogram per minute, and tube feedings with Nepro at 14 mL an hour, which is goal. Last night, because of bleeding around the tracheostomy site, patient received 1 unit of packed red blood cells, 1 unit of platelets, and protamine sulfate. lab review revealsWhite count is 15.2, hemoglobin 7.7, hematocrit 24.6, and platelet count 348,000. Sodium 135, potassium 4.7, chlorides 107, CO2 25, anion gap 3, BUN 32, creatinine 1.26. Chest x-ray from today, shows stable bilateral pulmonary infiltrates. patient underwent a trial of discontinuing Nimbex; it was restarted once patient became tachypneic 08/18/2021 Patient is seen and evaluated in ICU; remains intubated and mechanically ventilated; remains sedated - patient underwent tracheostomy tube placement on 08/14/2021. A PEG tube was attempted, but was unsuccessful; surgery on board. - labs are reviewed and reveal a white count of 14.7 in room 8.7 hematocrit 27.5 and a platelet count 349,000. Sodium potassium chloride CO2 all normal. Anion gap 6. BUN 28, creatinine 1.16. Albumin was 3.1. Chest x-ray continues to show diffuse bilateral patchy infiltrates. There is also the presence of the midline tracheostomy tube. Patient remains on labetalol for blood pressure control But intensive care service patient has not been able to tolerate a holiday from Nimbex; remains critically ill 08/19/2021 Patient remains in ICU and remains intubated and mechanically ventilated; remains sedated Patient is evaluated by general surgery to reassess possible PEG tube placement; patient is currently on tube feeding with nephro lab review shows a white blood count of 11.6, hemoglobin 7.6 and platelet count of 294 nephrology on board for acute renal injury, acute tubular necrosis; with creatinine down to 1.17 08/20/2021 Patient remains in ICU; remains intubated for COVID-19 related pneumonia/ARDS; patient clinically remains unchanged in past 24 hours and remains on ventilator support with previous settings; he is status post tracheostomy; PEG tube was attempted and was unsuccessful; general surgery currently on board with plans for repeat attempt at possible PEG tube insertion at a later stage; patient has an NG tube for nutrition Vital signs are reviewed with temperature 99.5, pulse 87, respiration 38 and blood pressure 168/90; lab review shows to be preceded 11.4, hemoglobin 9.0, hematocrit 27.8, sodium 135, potassium 4.8, BUN/creatinine of 25/1.17 08/21/2021 Patient is seen and evaluated. Patient's discussed nursing staff. Patient currently has a tracheostomy which is dry, clean, and intact. Patient suffers from COVID19 pneumonia complicated by ARDS and prolonged respiratory failure. Current issue at hands remains the patient's respiratory failure. He is taken off paralytics and now on combination of drugs in order to manage his sedation. Current medication regimen includes propofol, fentanyl, precedex. Patient's inflammatory markers have trended down specifically LDH of 728 and CRP down to 4.8. D-Dimer has also trended down to 4.1. Patient is currently on enteral feeding for nutrition. This morning tube feeds were held in preparation for PEG tube insertion. No other major changes or significant events in the past 24 hours. 08/22/2021 Patient is seen and evaluated . Patient's case discussed with the nursing staff. Patient remains in the ICU and on the mechanical ventilator. Patient has been having difficulty coming off sedation due to an acute hypertensive reaction. Patient was placed on Cleviprex drip, labetolol drip, Versed; both which were unsuccessful. Due to this patient has been placed on a higher dose of sedation. Patient currently on Precedex, Propofol, and Fentanyl. Patient's blood pressure is being well-controlled on a combination of drugs. Patient was taken off IV heparin this morning. The patient is scheduled for bedside PEG tube insertion ; current enteral feeding is on hold. The chest x-ray showed diffuse breath and pulmonary infiltrates consistent with COVID19 pneumoniaARDS. Patient is on decadron. Patient is afebrile. On examination, patient has slight edema in the upper extremities bilaterally, less in the lower extremities. He was receiving feeding through his an NG tube, currently tube feeds are on hold. Patient is no distress and there seems to be no major changes from yesterday. 08/23/2021 This patient has been seen for follow-up and evaluated. Sedation is now being tapered off. Patient is no responsive to simple commands and opens his eyes. However, patient is still drowsy and lethargic. Patient experiences weakness in all four extremities. Patient is still on propfol and fentanyl and precedex. Patient was also started on seroquel twice a day. Patient remains on mechanical ventilation. Patient's pulse ox is around 90%. Chest X ray continues to show diffuse bilateral pulmonary infiltrates that are consistent with malignancy related pneumonia and ARDS. Patient continues with enteral feeding through the NG tube. Patient is hemodynamically stable with normal BP. On physical examination it is noted that the patient is edematous in all four extremities. Patient was given a dose of Lasix yesterday and remains in positive fluid balance. Lasix will be restarted today. Patient continues to be on IV heparin in regards to his history with PE. Patient's renal function is normal. His WBC count is 5.4 with a HBG level of 8.5. Patietn remains on Decadron with his BP being controlled with amlopdipine, hydralazine, and metropolol. IV fluids are at KVO, as well. Continue ICU management and supportive care. 08/24/2021 This patient is seen and evaluated for follow up. Patient has been taken off propfol and is now become more awake and oriented. Patient pulled out his NG Tube and it remains out as it is very difficult to re-insert. Patient had an epi sode of emesis but no indication of aspiration. Patient is still on fentanyl and precedex. Patient is arousable, awake, and alert; patient is able to follow simple commands. Patient remains on mechanical ventilator. PEEP has been weaned down to 11 and his FiO2 to 40%. Chest X ray continues to show bilateral pulmonary infiltrates. Tracheostomy tube continues to be in a good location. There is no evidence of pneumothorax or pneumomediastinum. Team believes that his B[place] tracheostomy tube cuff is blowing out. Despite this, we are not seeing any significant leak around his tracheostomy stoma nor is there any leak around mouth/nose. Still, general surgery has been informed of this issue. Patient is hemodynamically stable. BP has been high, considering patient has not taken his daily HTN medication. IV fluids are currently at KVO. Patient remains on Decadron. Anticoagulation is administered to this patient. Patient remains on IV Lasix. Patient is now heading towards negative fluid balance and patient is now having sufficient diuresis. 08/25/2021 Patient is seen and evaluated for follow up. Patient is now awake, alert, oriented, and able to follow simple commands. Patient complains of weakness and is now able to do passive movement of upper extremities. Weakness is more pronounced in his lower extremities. Patient is comfortable and seems to be in no acute distress. Patient is not agitated and patient is now taken off propol. Patient is still on fentanly and precedex. Patient remains on mechanical ventilator. Patient has been having slight secretions for which sputum culture will be sent. Chest X ray findings continue to be stable. Tracheostomy tube is still in a good location. The balloon itself is malfunctioning is not holding any pressure, but patient has no significant air leak through mouth nor around the tube stoma. NG tube is still in place. He is receiving enteral feeding for nutritional support. Patient is also on anticoagulation with Eliquis with no bleeding issues or complications. Patient also remains on Decadron and he is diuresing with IV Lasix. As stated previously, his overall fluid balance has been negative. His weight is starting to improve. Edema that was present in all four extremities is also improving. Arterial line has been decided to be removed. Patient has no other major complaints and there seems to be no sig nificant changes or issues compared to yesterday. 09/01/2021 Patient is seen and evaluated for follow up. Patient continues to remain in the ICU; patient is still intubated, mechanically ventilated. Yesterday patient was on pressure support of ten and CPAP for over 16 hours. It has been recommended that patient goes on a pressure support of 8. Patient seems to be doing much better. Patient is awake, alert, orientated and able to follow commands. Chest X ray continues to show the same infiltrates that were seem in the left lung and right upper lobe. There is not much of a change, however, clinically, the patient is improving. CBC is normal, hemoglobin is 9.2, electrolytes are normal, patient's renal profile is normal. Patient has no major complaints and there does not seem to be any major or significant changes compared to yesterday. Reevaluated today on 09/01/21, patient remains in the ICU, intubated, mechanically ventilated, yesterday the patient tolerated over 16 hours of pressure support of 10 and CPAP, and today I'm recommending that the patient goes on pressure support of 8 CPAP/5. Patient seems to be doing great, and I have a strong feeling that maybe later on today I couldn't transition the patient to a trach collar. Patient is awake, he was just transitioned from assist-control mode of mechanical ventilation to pressure support of 10 and C PAP, and a change in her on to pressure support of 8. Chest x-ray continues to show same infiltrates in the left lung and right upper lobe. Not much of a change. Clinically however the patient seems to be improving. CBC is relatively normal hemoglobin is 9.2 electrolytes are normal renal profile is normal. Objective - Vital Signs Vital signs: Vital Signs Temp 99.9 F H 09/01/21 12:00 Pulse 105 H 09/01/21 15:00 Resp 30 H 09/01/21 15:00 BP 124/73 09/01/21 15:00 Pulse Ox 97 09/01/21 15:00 Intake & Output 08/31/21 09/01/21 09/01/21 18:59 06:59 18:59 Intake Total 843.630 5319 831.931 Output Total 2028 480 1215 Balance -1390.272 720 -383.069 Weight 110.9 kg Intake: IV 360 240 220 Piperacillin-Tazobactam 3 100 100 100 .375 gm In Sodium Chloride 0.9% 100 ml @ 25 mls/hr IVPB Q8HR [facility] Rx# :[id number] Sodium Chloride 0.9% 1, 260 140 120 000 ml @ 20 mls/hr IV . Q24H [facility] Rx#:[id number] Intake, IV Titration 107.728 200 191.931 Amount Dexmedetomidine/0.9% NaCl 107.728 100 91.931 (Pmx) 400 mcg In Empty Bag 1 bag @ 0.2 MCG/KG/HR 5.71 mls/hr IV .[id number] [facility] Rx#:[id number] Potassium Chloride 20 meq 100 100 In Water For Injection 1 100ml.bag @ 50 mls/hr IVPB Q2H [facility] Rx#: [id number] Tube Feeding 170 670 360 Other 90 60 Output: Urine 2820 538 8760 Emesis 200 Other: Voiding Method Indwelling Catheter Indwelling Catheter Indwelling Catheter # Bowel Movements 1 ABP, PAP, CO, CI - Last Documented Arterial Blood Pressure 120/59 - Exam GENERAL: The patient is alert and oriented x3, not in any acute distress. Well developed, well nourished. HEENT: Pupils are round and equally reacting to light. EOMI. No scleral icterus. No conjunctival pallor. Normocephalic, atraumatic. No pharyngeal erythema. No thyromegaly. CARDIOVASCULAR: S1 and S2 present. No murmurs, rubs, or gallops. -PULMONARY: Chest is clear to auscultation, no wheezing bilateral crepitation, tachypnea ABDOMEN: Soft, nontender, nondistended, normoactive bowel sounds. No palpable organomegaly. MUSCULOSKELETAL: No joint swelling or deformity. EXTREMITIES: No cyanosis, clubbing, or pedal edema. NEUROLOGICAL: Gross neurological examination did not reveal any focal deficits. SKIN: No rashes. No petechiae - Labs CBC & Chem 7: 09/01/21 03:19 09/01/21 03:19 Labs: Abnormal Lab Results - Last 24 Hours (Table) 08/31/21 08/31/21 09/01/21 Range/Units 18:02 23:28 03:19 RBC 3.27 L (4.30-5.90) m/uL Hgb 9.2 L (13.0-17.5) gm/dL Hct 31.0 L (39.0-53.0) % MCHC 29.5 L (31.0-37.0) g/dL RDW 18.1 H (11.5-15.5) % Potassium (3.5-5.1) mmol/L BUN (9-20) mg/dL Glucose (74-99) mg/dL POC Glucose (mg/dL) 113 H 110 H (75-99) mg/dL 09/01/21 09/01/21 09/01/21 Range/Units 03:19 06:00 11:31 RBC (4.30-5.90) m/uL Hgb (13.0-17.5) gm/dL Hct (39.0-53.0) % MCHC (31.0-37.0) g/dL RDW (11.5-15.5) % Potassium 3.4 L (3.5-5.1) mmol/L BUN 25 H (9-20) mg/dL Glucose 113 H (74-99) mg/dL POC Glucose (mg/dL) 110 H 120 H (75-99) mg/dL Microbiology - Last 24 Hours (Table) 08/26/21 11:21 Blood Culture - Final Blood No Growth after 144 hours 08/26/21 11:00 Blood Culture - Final Blood No Growth after 144 hours Assessment and Plan Assessment: Acute bilateral Covid pneumonia Acute hypoxic respiratory failure Elevated inflammatory markers Obesity with BMI of 49.8 Plan: This is a pleasant 31 years old male who presents with bilateral Covid pneumonia and hypoxia. Continue with oxygen as needed Continue With dexamethasone and Lovenox. Continue with vitamin C, vitamin D and zinc c/w baricitinib Pulmonary consult Labs and medication were reviewed.. Continue same treatment. Continue with symptomatic treatment. Resume home medication. Monitor lytes and vitals. DVT and GI prophylaxis. Further recommendations depends on the clinical course of the patient DVT prophylaxis: Subcutaneous Lovenox GI Prophylaxis: Pepcid Prognosis is guarded
[2021-09-02 00:12] LABS: Glucose,Whole Blood 122 mg/dL (75-99)
[2021-09-02] MEDS: PIPERACILLIN-TAZOBACTAM 3.375 GM in SODIUM CHLORIDE 0.9% 100 ML IVPB SCH ×2 (00:13→13:22)
[2021-09-02] MEDS: INSULIN ASPART (NovoLOG) 100 UNIT/ML VIAL SQ SCH ×5 (00:13→23:52)
--- NOTE | 2021-09-02 01:24 | P.PN ---
Subjective Progress Note Date: 08/31/21 Principal diagnosis: COVID-19 bilateral pneumonia Acute hypoxic respiratory failure 31 years old -[place] man with no significant past medical history presents with dyspnea which started yesterday associated with fever and coughing. Patient tested positive for covid earlier on Thursday after he felt with fever and cough on Thursday but at that time he was not dyspneic. He denies chest pain or abdominal pain but he has diarrhea on and off. No vomiting. He is saturating 89% on 6 L oxygen via nasal cannula, afebrile. Tachypneic with a breathing rate at 23. CBC, is unremarkable. INR is normal at 1.0. Sodium is 1:30, creatinine normal at 1.1, glucose 103. AST is mildly elevated 106 and ALT mildly elevated 106. Elevated lactate dehydrogenase 2600 and C-reactive protein 20.3. Cholelithiasis positive EKG shows sinus tachycardia and [address]-T changes Chest x-ray showing bilateral infiltrates 08/03/2021 patient is seen and evaluated ; continues to have difficulty breathing secondary to COVID-19 pneumonia. Earlier this morning at around 4 AM, the patient had a spell where he had an increased cough and in between he was unable to catch his breath and the patient desaturated. At that point, he was placed on BiPAP. He was quite hypoxic and he gradually build himself up and currently is back on 14/7 cm of water with an FiO2 of 90%. He is currently holding his BiPAP mask on his face. He is comfortable. He is also willing to consider to go back on high flow oxygen in addition to 100% on a beta facemask. --He remains on Decadron 6 mg on a daily basis. He remains on Baricitinib 4 mg on a daily basis. He remains on Lovenox 40 mg subcu on a daily basis. Labs are reviewed and reveal white cell count is at 9.8 with hemoglobin of 12.1. His d-dimer from 08/01/2021 was 1.87. Creatinine is at 1.09 with a BUN of 30 and the rest of the electrodes are all within normal limits. He is afebrile. He is tolerating his diet as the patient is able to eat in between different modes of oxygen delivery. He did have a spike of temperature of 11.6 yesterday. He is tachypneic his breathing is labored. Continue BiPAP treatment alternating with high flow oxygen at 6 L with an FiO2 of 90% Will monitor this patient on the medical floor and transferred to the intensive care unit if there is any worsening 08/04/2021 the patient is somewhat better compared to yesterday. - The patient gradually improved since then and currently is on high flow oxygen and 60 L of FiO2 of 90% in addition to 100% nonrebreather facemask; He remains on Decadron 6 mg on a daily basis and addition to Baricitinib 4 mg by mouth rachna; Lovenox and the dose is adjusted to 60 mg subcu every 12 hours because of an elevated d-dimer of 14.3. Meanwhile, his LDH still elevated at 2954 and a CRP still elevated at 13.8. Platelet electrodes are all within normal limits. His white cell count of 15.3 with hemoglobin of 13.4. Chest x- ray from today was reviewed and was compared to the earlier chest x-ray showed improvement in the inspiratory effort and there is also improvement in the right basilar consolidation. However there is still persistent and diffuse breath and pulmonary infiltrates perihilar and lower lobes bilaterally. Patient is awake and alert. No altered mentation. No other new complaints otherwise for now. 08/16/2021 The patient was admitted to the hospital with coronavirus associated pneumonia; moved to the intensive care unit on August 06, and intubated on the same day. He remains on the mechanical ventilator. --On August 14, the patient underwent tracheostomy. The PEG tube was attempted, but was not able to be done. Ventilator settings include the volume assist control mode White count 15.7, hemoglobin 7.5, hematocrit 23.9, platelet count 429,000. D- dimer was 5.08. Sodium 137, potassium 4.7, chlorides 107, CO2 24, anion gap is 6, BUN 41, creatinine 1.30. Albumin is 2.8. C-reactive protein is 3.8. Chest x-ray shows diffuse bilateral infiltrates. No change in chest x-ray compared to prior x-rays. Patient remains in intensive care unit with critical care on board; remains on IV Zosyn and Levaquin; cultures are negative so far; critical coronary recommending to continue with current management at this time 08/17/2021 Patient is seen and evaluated in ICU; remains on the mechanical ventilator; patient underwent tracheostomy. Arterial blood gases show pO2 of 81, pCO2 48, and a pH is 7.36. The patient's on saline at 20 mL an hour, fentanyl at 4 mcg/kg/h, propofol at 75 mcg/kg/m, Nimbex at 3 g kilogram per minute, and tube feedings with Nepro at 14 mL an hour, which is goal. Last night, because of bleeding around the tracheostomy site, patient received 1 unit of packed red blood cells, 1 unit of platelets, and protamine sulfate. lab review revealsWhite count is 15.2, hemoglobin 7.7, hematocrit 24.6, and platelet count 348,000. Sodium 135, potassium 4.7, chlorides 107, CO2 25, anion gap 3, BUN 32, creatinine 1.26. Chest x-ray from today, shows stable bilateral pulmonary infiltrates. patient underwent a trial of discontinuing Nimbex; it was restarted once patient became tachypneic 08/18/2021 Patient is seen and evaluated in ICU; remains intubated and mechanically ventilated; remains sedated - patient underwent tracheostomy tube placement on 08/14/2021. A PEG tube was attempted, but was unsuccessful; surgery on board. - labs are reviewed and reveal a white count of 14.7 in room 8.7 hematocrit 27.5 and a platelet count 349,000. Sodium potassium chloride CO2 all normal. Anion gap 6. BUN 28, creatinine 1.16. Albumin was 3.1. Chest x-ray continues to show diffuse bilateral patchy infiltrates. There is also the presence of the midline tracheostomy tube. Patient remains on labetalol for blood pressure control But intensive care service patient has not been able to tolerate a holiday from Nimbex; remains critically ill 08/19/2021 Patient remains in ICU and remains intubated and mechanically ventilated; remains sedated Patient is evaluated by general surgery to reassess possible PEG tube placement; patient is currently on tube feeding with nephro lab review shows a white blood count of 11.6, hemoglobin 7.6 and platelet count of 294 nephrology on board for acute renal injury, acute tubular necrosis; with creatinine down to 1.17 08/20/2021 Patient remains in ICU; remains intubated for COVID-19 related pneumonia/ARDS; patient clinically remains unchanged in past 24 hours and remains on ventilator support with previous settings; he is status post tracheostomy; PEG tube was attempted and was unsuccessful; general surgery currently on board with plans for repeat attempt at possible PEG tube insertion at a later stage; patient has an NG tube for nutrition Vital signs are reviewed with temperature 99.5, pulse 87, respiration 38 and blood pressure 168/90; lab review shows to be preceded 11.4, hemoglobin 9.0, hematocrit 27.8, sodium 135, potassium 4.8, BUN/creatinine of 25/1.17 08/21/2021 Patient is seen and evaluated. Patient's discussed nursing staff. Patient currently has a tracheostomy which is dry, clean, and intact. Patient suffers from COVID19 pneumonia complicated by ARDS and prolonged respiratory failure. Current issue at hands remains the patient's respiratory failure. He is taken off paralytics and now on combination of drugs in order to manage his sedation. Current medication regimen includes propofol, fentanyl, precedex. Patient's inflammatory markers have trended down specifically LDH of 728 and CRP down to 4.8. D-Dimer has also trended down to 4.1. Patient is currently on enteral feeding for nutrition. This morning tube feeds were held in preparation for PEG tube insertion. No other major changes or significant events in the past 24 hours. 08/22/2021 Patient is seen and evaluated . Patient's case discussed with the nursing staff. Patient remains in the ICU and on the mechanical ventilator. Patient has been having difficulty coming off sedation due to an acute hypertensive reaction. Patient was placed on Cleviprex drip, labetolol drip, Versed; both which were unsuccessful. Due to this patient has been placed on a higher dose of sedation. Patient currently on Precedex, Propofol, and Fentanyl. Patient's blood pressure is being well-controlled on a combination of drugs. Patient was taken off IV heparin this morning. The patient is scheduled for bedside PEG tube insertion ; current enteral feeding is on hold. The chest x-ray showed diffuse breath and pulmonary infiltrates consistent with COVID19 pneumoniaARDS. Patient is on decadron. Patient is afebrile. On examination, patient has slight edema in the upper extremities bilaterally, less in the lower extremities. He was receiving feeding through his an NG tube, currently tube feeds are on hold. Patient is no distress and there seems to be no major changes from yesterday. 08/23/2021 This patient has been seen for follow-up and evaluated. Sedation is now being tapered off. Patient is no responsive to simple commands and opens his eyes. However, patient is still drowsy and lethargic. Patient experiences weakness in all four extremities. Patient is still on propfol and fentanyl and precedex. Patient was also started on seroquel twice a day. Patient remains on mechanical ventilation. Patient's pulse ox is around 90%. Chest X ray continues to show diffuse bilateral pulmonary infiltrates that are consistent with malignancy related pneumonia and ARDS. Patient continues with enteral feeding through the NG tube. Patient is hemodynamically stable with normal BP. On physical examination it is noted that the patient is edematous in all four extremities. Patient was given a dose of Lasix yesterday and remains in positive fluid balance. Lasix will be restarted today. Patient continues to be on IV heparin in regards to his history with PE. Patient's renal function is normal. His WBC count is 5.4 with a HBG level of 8.5. Patietn remains on Decadron with his BP being controlled with amlopdipine, hydralazine, and metropolol. IV fluids are at KVO, as well. Continue ICU management and supportive care. 08/24/2021 This patient is seen and evaluated for follow up. Patient has been taken off propfol and is now become more awake and oriented. Patient pulled out his NG Tube and it remains out as it is very difficult to re-insert. Patient had an epi sode of emesis but no indication of aspiration. Patient is still on fentanyl and precedex. Patient is arousable, awake, and alert; patient is able to follow simple commands. Patient remains on mechanical ventilator. PEEP has been weaned down to 11 and his FiO2 to 40%. Chest X ray continues to show bilateral pulmonary infiltrates. Tracheostomy tube continues to be in a good location. There is no evidence of pneumothorax or pneumomediastinum. Team believes that his [place] tracheostomy tube cuff is blowing out. Despite this, we are not seeing any significant leak around his tracheostomy stoma nor is there any leak around mouth/nose. Still, general surgery has been informed of this issue. Patient is hemodynamically stable. BP has been high, considering patient has not taken his daily HTN medication. IV fluids are currently at KVO. Patient remains on Decadron. Anticoagulation is administered to this patient. Patient remains on IV Lasix. Patient is now heading towards negative fluid balance and patient is now having sufficient diuresis. 08/25/2021 Patient is seen and evaluated for follow up. Patient is now awake, alert, oriented, and able to follow simple commands. Patient complains of weakness and is now able to do passive movement of upper extremities. Weakness is more pronounced in his lower extremities. Patient is comfortable and seems to be in no acute distress. Patient is not agitated and patient is now taken off propol. Patient is still on fentanly and precedex. Patient remains on mechanical ventilator. Patient has been having slight secretions for which sputum culture will be sent. Chest X ray findings continue to be stable. Tracheostomy tube is still in a good location. The balloon itself is malfunctioning is not holding any pressure, but patient has no significant air leak through mouth nor around the tube stoma. NG tube is still in place. He is receiving enteral feeding for nutritional support. Patient is also on anticoagulation with Eliquis with no bleeding issues or complications. Patient also remains on Decadron and he is diuresing with IV Lasix. As stated previously, his overall fluid balance has been negative. His weight is starting to improve. Edema that was present in all four extremities is also improving. Arterial line has been decided to be removed. Patient has no other major complaints and there seems to be no sig nificant changes or issues compared to yesterday. 08/30/2021 Patient was seen and evaluated while discussed with the nursing staff. Patient remains intubated and mechanically ventilated. Patient O2 saturation is around 95%. Patient remains on a medical regimen of precedex, seroquel, nepro via nasogastric tube. Patient's chest x ray is the same, no major changes seen. Adrianne kuo is awake, alert, oriented but states that he is feeling weak which is most likely related to his critical illness polyneuropathy/myopathy. Vital signs and labs are evaluated Continue patient on supportive care. Objective - Vital Signs Vital signs: Vital Signs Temp 99.5 F 08/31/21 12:00 Pulse 89 08/31/21 13:30 Resp 33 H 08/31/21 13:30 BP 103/61 08/31/21 13:30 Pulse Ox 96 08/31/21 13:30 Intake & Output 08/30/21 08/31/21 08/31/21 18:59 06:59 18:59 Intake Total 625.594 786.148 297.891 Output Total 1565 553 9801 Balance -494.406 371.148 -1342.109 Weight 112.4 kg 111.9 kg Intake: IV 440 220 200 Piperacillin-Tazobactam 3 310 100 100 .375 gm In Sodium Chloride 0.9% 100 ml @ 25 mls/hr IVPB Q8HR [facility] Rx# :[id number] Sodium Chloride 0.9% 1, 130 120 100 000 ml @ 20 mls/hr IV . Q24H [facility] Rx#:[id number] Intake, IV Titration 33.594 156.148 17.891 Amount Dexmedetomidine/0.9% NaCl 33.594 156.148 17.891 (Pmx) 400 mcg In Empty Bag 1 bag @ 0.2 MCG/KG/HR 5.71 mls/hr IV .[id number] [facility] Rx#:[id number] Tube Feeding 152 320 80 Other 90 Output: Urine 3614 303 6881 Emesis 200 Other: Voiding Method Indwelling Catheter Indwelling Catheter Indwelling Catheter ABP, PAP, CO, CI - Last Documented Arterial Blood Pressure 120/59 - Exam GENERAL: The patient is alert and oriented x3, not in any acute distress. Well developed, well nourished. HEENT: Pupils are round and equally reacting to light. EOMI. No scleral icterus. No conjunctival pallor. Normocephalic, atraumatic. No pharyngeal erythema. No thyromegaly. CARDIOVASCULAR: S1 and S2 present. No murmurs, rubs, or gallops. -PULMONARY: Chest is clear to auscultation, no wheezing bilateral crepitation, tachypnea ABDOMEN: Soft, nontender, nondistended, normoactive bowel sounds. No palpable organomegaly. MUSCULOSKELETAL: No joint swelling or deformity. EXTREMITIES: No cyanosis, clubbing, or pedal edema. NEUROLOGICAL: Gross neurological examination did not reveal any focal deficits. SKIN: No rashes. No petechiae - Labs CBC & Chem 7: 09/01/21 03:19 09/01/21 03:19 Labs: Abnormal Lab Results - Last 24 Hours (Table) 08/30/21 08/31/21 08/31/21 Range/Units 17:37 00:23 05:15 RBC (4.30-5.90) m/uL Hgb (13.0-17.5) gm/dL Hct (39.0-53.0) % MCHC (31.0-37.0) g/dL RDW (11.5-15.5) % ABG pH 7.50 H (7.35-7.45) ABG HCO3 33 H (21-25) mmol/L ABG Total CO2 34 H (19-24) mmol/L ABG O2 Saturation 99.5 H (94-97) % BUN (9-20) mg/dL Glucose (74-99) mg/dL POC Glucose (mg/dL) 118 H 114 H (75-99) mg/dL 08/31/21 08/31/21 08/31/21 Range/Units 05:47 05:47 06:15 RBC 3.15 L (4.30-5.90) m/uL Hgb 9.1 L (13.0-17.5) gm/dL Hct 29.5 L (39.0-53.0) % MCHC 30.8 L (31.0-37.0) g/dL RDW 18.3 H (11.5-15.5) % ABG pH (7.35-7.45) ABG HCO3 (21-25) mmol/L ABG Total CO2 (19-24) mmol/L ABG O2 Saturation (94-97) % BUN 25 H (9-20) mg/dL Glucose 107 H (74-99) mg/dL POC Glucose (mg/dL) 113 H (75-99) mg/dL 08/31/21 Range/Units 12:28 RBC (4.30-5.90) m/uL Hgb (13.0-17.5) gm/dL Hct (39.0-53.0) % MCHC (31.0-37.0) g/dL RDW (11.5-15.5) % ABG pH (7.35-7.45) ABG HCO3 (21-25) mmol/L ABG Total CO2 (19-24) mmol/L ABG O2 Saturation (94-97) % BUN (9-20) mg/dL Glucose (74-99) mg/dL POC Glucose (mg/dL) 103 H (75-99) mg/dL Microbiology - Last 24 Hours (Table) 08/26/21 11:21 Blood Culture - Preliminary Blood No Growth after 120 hours 08/26/21 11:00 Blood Culture - Preliminary Blood No Growth after 120 hours Assessment and Plan Assessment: Acute bilateral Covid pneumonia Acute hypoxic respiratory failure Elevated inflammatory markers Obesity with BMI of 49.8 Plan: This is a pleasant 31 years old male who presents with bilateral Covid pneumonia and hypoxia. Continue with oxygen as needed Continue With dexamethasone and Lovenox. Continue with vitamin C, vitamin D and zinc c/w baricitinib Pulmonary consult Labs and medication were reviewed.. Continue same treatment. Continue with symptomatic treatment. Resume home medication. Monitor lytes and vitals. DVT and GI prophylaxis. Further recommendations depends on the clinical course of the patient DVT prophylaxis: Subcutaneous Lovenox GI Prophylaxis: Pepcid Prognosis is guarded
[2021-09-02] MEDS: DEXMEDETOMIDINE/0.9% NACL(PMX) 400 MCG in EMPTY BAG 1 BAG IV SCH ×3 (02:07→18:17)
[2021-09-02 05:55] LABS: ABG Base Excess 10.3 mmol/L; ABG HCO3 33 mmol/L (21-25); ABG PCO2 42 mmHg (35-45); ABG PH 7.51 (7.35-7.45); ABG PO2 96 mmHg (83-108); ABG TCO2 35 mmol/L (19-24); Allen Test Performed? Yes
[2021-09-02 05:59] LABS: Glucose,Whole Blood 105 mg/dL (75-99)
--- NOTE | 2021-09-02 07:04 | XR ---
EXAMINATION TYPE: XR chest 1V portable DATE OF EXAM: 09/02/2021 COMPARISON: Chest x-ray 09/01/2021 HISTORY: On ventilator, abnormal chest x-ray TECHNIQUE: Single frontal view of the chest is obtained. FINDINGS: Tracheostomy tube is overlying the tracheal air column, there is a left-sided PICC line an d an NG tube overlying stable positions. Bilateral airspace disease is present, lung volumes are low. Cardiac mediastinal silhouette is stable. No evident pneumothorax or pleural effusion. IMPRESSION: Findings are similar to prior exam. Correlate for pneumonia, ARDS.
[2021-09-02] MEDS: ALBUTEROL HFA INHALER INHALATION PRN ×4 (08:03→19:51)
[2021-09-02] MEDS: bisacodyL 10 MG SUPP RECTAL SCH (08:30)
[2021-09-02] MEDS: SENNOSIDES-DOCUSATE SODIUM 1 EACH TAB PO SCH (08:31)
[2021-09-02] MEDS: CHOLECALCIFEROL 25 MCG (1000 IU) TABLET PO SCH (09:09)
[2021-09-02] MEDS: PANTOPRAZOLE 40 MG/10 ML VIAL IVP SCH ×2 (09:09→20:25)
[2021-09-02] MEDS: CHLORHEXIDINE GLUCONATE 15 ML CUP MUCOUS MEM SCH ×2 (09:09→20:26)
[2021-09-02] MEDS: FUROSEMIDE 10 MG/ML 4 ML VIAL IV SCH (09:09)
[2021-09-02] MEDS: ASCORBIC ACID 500 MG TAB PO SCH (09:09)
[2021-09-02] MEDS: QUEtiapine 25 MG TAB PO SCH ×2 (09:09→20:26)
[2021-09-02] MEDS: APIXABAN 5 MG TAB PO SCH ×2 (09:10→20:26)
[2021-09-02] MEDS: METOPROLOL TARTRATE 50 MG TAB PO SCH ×2 (09:10→20:26)
[2021-09-02] MEDS: amLODIPine 5 MG TAB PO SCH ×2 (09:10→20:26)
[2021-09-02] MEDS: hydrALAZINE HCL 25 MG TAB PO SCH ×3 (09:10→23:46)
[2021-09-02] MEDS: ZINC SULFATE 220 MG CAP PO SCH (09:11)
[2021-09-02 10:07] LABS: Anisocytosis Slight; HCT 28.5 % (39.0-53.0); HGB 8.8 gm/dL (13.0-17.5); Hypochromasia Marked; MCH 29.2 pg (25.0-35.0); MCHC 30.9 g/dL (31.0-37.0); MCV 94.4 fL (80.0-100.0); Macrocytosis Slight; Mean Platelet Volume 9.2; Platelet Count 382 k/uL (150-450); RBC 3.02 m/uL (4.30-5.90); RDW 18.3 % (11.5-15.5); WBC 8.9 k/uL (3.8-10.6)
[2021-09-02 10:18] LABS: African American GFR (CKD) >90 (>60 ml/min/1.73 sqM); Anion Gap 7 mmol/L; Blood Urea Nitrogen 25 mg/dL (9-20); Carbon Dioxide 30 mmol/L (22-30); Chloride 103 mmol/L (98-107); Glucose 118 mg/dL (74-99); Non-African American GFR(CKD) >90 (>60 ml/min/1.73 sqM); Potassium 3.3 mmol/L (3.5-5.1); Sodium 140 mmol/L (137-145)
--- NOTE | 2021-09-02 10:18 | P.PN ---
Subjective Progress Note Date: 09/02/21 Principal diagnosis: Coronavirus associated pneumonia. Acute hypoxic respiratory failure secondary to COVID-19 pneumonia On today's evaluation patient is seen in follow-up on 08/05/2021, he is currently on BiPAP support with pressure of 14/8, and the pulse ox is 87-93%, patient does alternate with Airvo at 60 L and 90% FiO2, and at bedtime and as needed for periods of time during the day he does go on BiPAP. He is awake and alert, he sitting up on the edge of the bed, dyspneic with exertion, but no acute distress, he remains on Bicitra neb, he is on IV Decadron, Lovenox 60 mg twice daily, he is on 0.9 normal saline at a rate of 50 ML per hour, he is on multivitamins, his latest chest x-ray from 08/04/2021 showed improved inspiration, improved right basilar focal consolidation, and persistent bilateral diffuse reticulonodular opacities in the lower lungs consistent with known COVID-19 infection. Today's labs have been reviewed, his white blood cell count is 19.1, hemoglobin is 13.1, d-dimer is 14.3, sodium is 133, the rest of electrolytes and renal profile were fairly unremarkable, his inflammatory markers are relatively stable and LDH is 2935, and CRP is 18.2, pro calcitonin level is slightly improved and is down to 0.40. His blood and sputum cultures have shown no growth. He did have a fever with a temp of 101.7F. Currently afebrile. No complaints of chest discomfort. No hemoptysis, his lower extremity Dopplers were negative for DVT. On 08/06/2021 patient seen in follow-up on medical surgical floor. Patient still requiring high flow oxygen per Airvo, and he is requiring BiPAP support most of time with pressures of 14/88 and FiO2 of 100% and his pulse ox is 87- 90%, he continues to have fevers, with a T-max 101.7F, overnight his fever pa ttern has improved and he still having some low-grade fevers. He is short of breath with any exertion. He continues on Decadron 6 mg daily, Baricitinib, and Lovenox at intermediate dosing at 0.5 mg/kg twice daily which is above 60 mg twice daily for this patient's weight. His d-dimer is down to 8.58 on today's labs, improved although still significantly elevated, lower extremity Dopplers were negative for any evidence of DVT. There is concern for superimposed bacterial infection, especially in view of fever, and elevated white blood cell count. Today's white count is 22.1, hemoglobin is 13, sodium is 131, rest of electrolytes were within normal limits, B1 is 27 creatinine 0.89, pro Level Was Borderline at 0.40, Also Suggestive of a Possible Super Imposed Bacterial Infection. Patient was transferred yesterday to the ICU, and around 2 AM this morning, I was notified about this patient is not doing well. Patient was noted to be desaturating, anxious, tachycardic, and patient did not improve much with Precedex. Hence I recommended intubating the patient. Patient was intubated by [facility] [employer], trace on mechanical ventilation, and he is now on assist control rate of 38, tidal volume of 375 100% FiO2 and PEEP is 18. His ABG showed a pO2 of 99 pCO2 57 pH of 7.27. Patient is on multiple drips including propofol at 50 fentanyl at 0.25 mcg/kg/h, Nimbex at 1 and he is on IV fluid 0.9 normal saline at 50 mL per hour. Patient was actually intubated around 2:45 AM this morning. Reviewed his chest x-ray, clearly showed bilateral infiltrates, consistent with COVID-19 pneumonia. His endotracheal tube is in the proper position. And his orogastric tube is also in the proper position. After reviewing his ABG, I cut down his FiO2 to 90%, may consider going higher on the PEEP, may also consider placing the patient in prone position. I have consulted interventional radiology for a PICC line placement, and I went ahead and placed a right radial arterial line. Patient will be off heparin for a couple of hours prior to the PICC line placement. I reviewed his CT angiogram of the chest from yesterday, the minor evidence of pulmonary embolism is not clinically impressive, however nonetheless the patient will need to be heparinized noticing that he has elevated d-dimer and the fact that he has COVID-19 pneumonia which is a major provoking factor for thrombus embolic disease. WBC count today is 19 hemoglobin is 11.9 his PTT was therapeutic initially at 50.1, and this morning it is 37.9, patient received a heparin bolus. Electrolytes are normal potassium is 5.1 BUN is 28 creatinine is 1.03. Medications espinoza, patient is on albuterol, amlodipine, vitamin C, Peridex, vitamin D, Nimbex, Decadron 6 mg IV push daily, fentanyl, heparin, hydralazine, metoprolol, lisinopril, Protonix, Zosyn, and zinc. Used to be on baricitimib, however because of his leukocytosis and elevat ed pro calcitonin, this was discontinued, and we started the patient empirically on antibiotics. Blood cultures and sputum cultures so far are negative. And they seem to be nondiagnostic so far. At one point, the patient was spiking fevers, his T-max yesterday was 99.1. The patient is seen today 08/08/2021 and follow-up in the intensive care unit. He remains intubated, sedated, paralyzed and on the mechanical ventilator. Current settings are assist control at a rate of 38, tidal volume 375, FiO2 100% and a PEEP of 18. Peak pressures of 35, plateau of 33. Morning blood gases revealed a PaO2 of 205, pCO2 56, pH 7.22. He remains in sinus tachycardia currently at 104. He is currently on propofol 50 mcg/kg/m, fentanyl at 0.25 mcg/kg per hour, Nimbex at 1 mcg/kg/m, heparin drip per weight-based protocol. 0.9 normal saline at 125 ML's per hour. Staff did attempt to prone the patient yesterday however he had a significant cuff leak, significant desaturations and had to be placed back in supine position almost immediately. Chest x-ray reveals continued diffuse fine interstitial infiltrates, left greater than right with possibly some slight improvement in aeration. Blood cultures reveal no growth. Sputum cultures reveal no growth. White count 15.1. Hemoglobin 9.8. Platelets 230. Lymphocytes 0.8. Sodium 133. Potassium 5.6. Bicarb 21. Creatinine 2.88. Blood glucose 118. AST 39. ALT 61. He is continued on Decadron, Zosyn, vitamin supplements. He is currently afebrile. Not requiring pressors. He is being nourished with vital AF at 20 ML's per hour. Reevaluated today on 08/09/2021, patient remains in the ICU, intubated and mechanically ventilated, sedated and paralyzed. Ventilator settings are assist control rate of 38 tidal volume 375 FiO2 65% PEEP increased to 20 this morning. ABG earlier on a PEEP of 18 showed a pO2 of 66 pCO2 of 56 pH of 7.35. Patient is on Nimbex at 2 mcg/kg/m fentanyl 0.5 mcg/kg/h propofol at 55 mcg/kg/m still on a bicarb drip at 75 mL per hour. Patient is on enteral feeding using vital AF 28/28. Patient remains on Decadron at 6 mg IV push twice a day. Remains on heparin. Remains on the COVID-19 cocktail. Remains on albuterol, remains on GI prophylaxis. Insulin as per protocol, metoprolol Pavithra and empirically on Zosyn for his elevated pro calcitonin level. Chest x-ray continues to show bilateral interstitial infiltrates consistent with COVID-19 pneumonia not much of a change noted on the chest x-ray today. Labs, showed relatively normal CBC. PTT is 41.6, patient is on heparin, electrolytes are normal renal profile showed slight improvement to BUN is 53 creatinine 2.22. Repeat pro calcitonin yesterday was 5.5, last LDH was 2931, and C-reactive protein is elevated at 31.6 Reevaluated today on 08/10/2021, remains in the ICU intubated and mechanically ventilated, sedated and paralyzed. Thank you the settings are assist control rate 38 tidal volumes at 375 FiO2 50% PEEP of 20, peak airway pressure 39 left total pressure is 37 ABG showed a pO2 of 65 pCO2 52 pH of 7.35. Remains on multiple drips including Nimbex at 2 mcg/kg/m, propofol at 70 micrograms per kilo per minute fentanyl at 1.5 mcg/kg/m and cutting down to 1 mcg/kg/m. Remains on enteral feeding with vital AF 28/28. Remains on Decadron 6 mg twice a day remains on Zosyn and his last procalcitonin was 5.5 Chest x-ray continues to show evidence of bilateral infiltrates left seems to be more involved than the right. Labs today showed d-dimer of 1.78 down from 8.58, patient remains on heparin. CT of the chest showed nonocclusive thromboembolic disease. LDH is down to 1114 from 2931 and C-reactive protein is elevated at 19.9 but much better compared to a few days ago where it was about 32. WBC count is 11.8 hemoglobin is 8.4. Platelets are 317,000 Patient was reevaluated today on 08/11/21, patient remains in the ICU, intubated and mechanically ventilated. Patient is sedated and paralyzed, he is on Nimbex at 1.5 mcg/kg/m, fentanyl at 1 mcg/kg/h, propofol is 65 mcg/kg/h, he is also on heparin drip and he is on IV fluid at 65 mL per hour in the form of 0.9 normal saline. Patient is receiving enteral feeding vital AF Ventilator settings include assist control rate of 38 tidal volume 375 FiO2 60% PEEP of 20, ABG showed a pO2 of 58 pCO2 of 55 pH of 7.31, and this was on 55%, hence the FiO2 was increased to 60%. Patient desaturates even with a PEEP down to 18, hence I'm keeping him on a PEEP of 24 now. Chest x-ray shows bilateral infiltrates, however the left lower lobe seems to be more involved than the rest of the lungs, more infiltrate noted in the left lower lobe area. Patient remains on Zosyn, he is off baricitinib, mostly because of his elevated pro calcitonin level, and he was placed on antibiotics empirically. And will add Levaquin empirically in addition to Zosyn. Cultures so far are nondiagnostic. Patient remains on Decadron 6 mg twice a day. And he is also on the COVID-19 cocktail. Patient remains on the COVID-19 cocktail, and he remains on GI and DVT prophylaxis Progress note dated 08/12/2021. 31-year-old black male, again seen in the intensive care unit, room 262. The patient was admitted on July 31 with coronavirus associated pneumonia. He was moved to the intensive care unit on August 06 and intubated on the same day for worsening respiratory failure with hypoxemia. Currently, the patient remains on the mechanical ventilator. He is on the volume assist control mode, rate 38, tidal volume 375, FiO2 60%, to be decreased to 50%, and PEEP of 20. Arterial blood gases show pO2 of 70, pCO2 of 49, and a pH is 7.36. The patient is receiving saline at 50 mL an hour, propofol 60 mcg/kg/m, Nimbex at 2 mcg/kg/m with train of four monitoring, heparin via weightbase protocol, fentanyl at 2 mcg/kg/h, and vital AF at goal, which is 28 mL an hour. White count 15, hemoglobin 7.8, hematocrit 26.1, and platelet count 433,000. D-dimer was 1.68. Sodium 140, potassium 5.3, chlorides 111, CO2 25, anion gap 4, BUN 60, and creatinine 1.73. LDH is 1160. C-reactive protein is 5.8. Chest x-ray shows diffuse bilateral infiltrates. This is consistent with his known diagnosis of coronavirus associated pneumonia. Endotracheal tube is about 3-1/2 cm above the tracheal delmer. Progress note dated 08/13/2021. 31-year-old black male, again seen in the intensive care unit, room 262. The patient was admitted to the hospital on July 31 with coronavirus associated pneumonia. He was moved to the intensive care unit on August 06, and intubated on the same day for worsening hypoxemic respiratory failure. The patient remains on mechanical ventilator. His ventilator settings include the volume assist control, rate 38, tidal volume 375, FiO2 currently 75%, with a PEEP of 20. He had blood gases done early in the morning showing a pO2 of 49, pCO2 of 62, and a pH is 7.26. That was when he was on 50% and when he was getting a bath. Subsequently, we increase his FiO2 to 100%, and he is now been weaned down to 75%. I did asked the respiratory therapist to repeat an ABG. The patient's currently receiving propofol at 75 mcg/kg/m, Nimbex at 2 mcg/kg/m, fentanyl at 3 mcg/kg/h, and heparin via weightbase protocol. He is getting saline at KVO, and tube feedings with Nepro at 14 mL an hour, which is goal. He remains on Zosyn and Levaquin. He is apparently scheduled for tracheostomy and PEG tube placement on Thursday. White count is 30, hemoglobin 9.5, hematocrit 31.7, platelet count 634,000. D-dimer is 2.68. Sodium 140, potassium 5.6, chlorides 108, CO2 27, anion gap 5, BUN 51, and creatinine 1.61. LDH is 1730. C-reactive protein is 4.1. Albumin is 3.1. Chest x-ray shows diffuse bilateral infiltrates, essentially unchanged. Progress note dated 08/14/2021. 31-year-old black male, again seen in the intensive care unit, room 262. The patient was admitted to the hospital on July 31 with coronavirus associated pneumonia. He was moved to the intensive care unit on August 06, and intubated on the same day for worsening oxygenation. The patient remains on the mechanical ventilator. Today, the patient will have a tracheostomy tube placed as well as a PEG tube placed. Current ventilator settings include the volume assist control mode, rate 38, tidal volume 375, FiO2 55%, and PEEP of 20. Blood gases on the same settings except for 40% FiO2, show a PaO2 of 49, pCO2 of 51, and a pH 7.37. When I was alerted about these blood gases, I increased the FiO2 from 40% up to 55%. Currently, saturations are in the low 90s. The patient's on Nimbex at 2 g kilogram per minute, propofol at 65 mcg/kg/m, 0.9 saline at 20 mL an hour, fentanyl at 2 mcg/kg/h, heparin via weightbase protocol, and tube feedings are currently on hold for anticipated tracheostomy and PEG tube today. White count 17.5, hemoglobin 7.7, hematocrit 25.1, and platelet count 462,000. Sodium 139, potassium 5.2, chlorides 108, CO2 24, anion gap 7, BUN 51, and crea tinine 1.77. Chest x-ray again shows diffuse bilateral infiltrates, which are essentially unchanged. Progress note dated 08/15/2021. 31-year-old black male, again seen in the ICU, room 262. The patient was admitted to the hospital on July 31 with coronavirus associated pneumonia. Because of worsening hypoxemia, he was moved to the intensive care unit on August 06. It's intubated on the same day. He remains on mechanical ventilator. Yesterday, he had a tracheostomy performed. A PEG tube was apparently attempted, but not able to be performed. He remains on the volume assist control mode with, with a rate of 38, tidal volume 375, FiO2 55%, any. Arterial blood gases show pO2 70, pCO2 37, and a pH is 7.4. The patient's currently on propofol at 75 mcg/kg/m, Nimbex at 2 mcg/kg/m, fentanyl at 2.5 mcg/kg/h, saline at 20 mL an hour, and he will be restarted on IV heparin. Unfortunately, there was no NG tube. It was removed during the attempted procedure yesterday, and the nurses have been having a hard time replacing it. We will try again today. White count 15.6, hemoglobin 7.4, hematocrit 23.7, and platelet count 404,000. PTT was 20.9. D-dimer 3.76. Sodium 137, potassium 4.9, chlorides 105, CO2 25, anion gap 7, BUN 49, and creatinine 1.59. Chest x- ray continues to show diffuse bilateral infiltrates, may be a bit improved. Progress note dated 08/16/2021. 31 yo black male, again seen in the intensive care unit, room 262. The patient was admitted to the hospital on July 31, with coronavirus associated pneumonia. Because of worsening hypoxemia, he was moved to the intensive care unit on August 06, and intubated on the same day. He remains on the mechanical ventilator. On August 14, the patient underwent tracheostomy. The PEG tube was attempted, but was not able to be done. Ventilator settings include the volume assist control mode, rate 38, tidal volume 375, FiO2 55%, and PEEP of 20. Blood gases show a PaO2 of 70, pCO2 of 52, and a pH of 7.34. The patient is currently on fentanyl, at 4 mcg/kg/h, propofol at 75 mcg/kg/m, Nimbex at 2 mcg/ kg/m, Nepro, at 14 mL an hour, which is goal, and saline at KVO. White count 15.7, hemoglobin 7.5, hematocrit 23.9, platelet count 429,000. D-dimer was 5.08. Sodium 137, potassium 4.7, chlorides 107, CO2 24, anion gap is 6, BUN 41, creatinine 1.30. Albumin is 2.8. C-reactive protein is 3.8. Chest x-ray shows diffuse bilateral infiltrates. No change in chest x-ray compared to prior x- rays. Progress note dated 08/17/2021. 31-year-old black male, seen again in the intensive care unit, room 262. The patient was admitted to the hospital on July 31, with coronavirus associated pneumonia. Because of worsening hypoxemia, he was moved to the intensive care unit on August 06 and intubated on the same day. He remains on the mechanical ventilator. On August 14, the patient underwent tracheostomy. The PEG tube was attempted, but could not be performed. Current ventilator settings include the volume assist control mode, rate 38, tidal volume 375, FiO2 50%, PEEP of 20, to be turned down to 15. Arterial blood gases show pO2 of 81, pCO2 48, and a pH is 7.36. The patient's on saline at 20 mL an hour, fentanyl at 4 mcg/kg/h, propofol at 75 mcg/kg/m, Nimbex at 3 g kilogram per minute, and tube feedings with Nepro at 14 mL an hour, which is goal. Last night, because of bleeding around the tracheostomy site, I gave the patient 1 unit of packed red blood cells, 1 unit of platelets, and protamine sulfate. The bleeding did stop. White count is 15.2, hemoglobin 7.7, hematocrit 24.6, and platelet count 348,000. Sodium 135, potassium 4.7, chlorides 107, CO2 25, anion gap 3, BUN 32, creatinine 1.26. Chest x-ray from today, shows stable bilateral pulmonary infiltrates. Progress note dated 08/18/2021. 31-year-old black male, again seen in room 262. He was admitted to the hospital on July 31 with coronavirus associated pneumonia. On August 06, because of worsening hypoxemic respiratory failure, the patient was moved to the ICU and intubated. On August 14, the patient underwent tracheostomy tube placement. A PEG tube was attempted, but could not be performed because of anatomic reasons. The patient remains on the volume assist control mode, rate 38, tidal volume 375, FiO2 50%, PEEP of 15. Blood gases show pO2 61 pCO2 55 and a pH is 7.30. The patient is currently on fentanyl at 4.5 mcg/kg/h, Nimbex at 3 mcg/kg/m, propofol at 75 mcg/kg/m, Cleveprex at 13 mg an hour Nepro, at 13 mL an hour which is goal. The patient did not tolerate a Nimbex holiday. Today regarding increased his labetalol, so that we can get him off the Cleveprex. We'll use 1 0-20 mg IV, every 2 hours, for systolic greater than 160 or mean arterial pressure greater than 100. Current laboratory data includes a white count of 14.7 in room 8.7 hematocrit 27.5 and a platelet count 349,000. Sodium potassium chloride CO2 all normal. Anion gap 6. BUN 28, creatinine 1.16. Albumin was 3.1. Chest x-ray continues to show diffuse bilateral patchy infiltrates. There is also the presence of the midline tracheostomy tube. Reevaluated today on 08/29/21, patient remains in the ICU, intubated and mechanically ventilated. He is on assist control rate of 24 tidal volume 450 F iO2 45% PEEP of 12. Patient remains on propofol at 35 mcg/kg/m, he is also on fentanyl at 20 mcg/kg/h, and he is on IV fluid at KVO. His ABG today showed a pO2 of 87 pCO2 46 pH of 7.44. Patient underwent tracheostomy change yesterday by general surgery, and it seems to be functioning quite well. Patient remains on Nepro, not yet to goal, and the dose is being increased gradually. He is off Nimbex, and we are tapering his propofol and fentanyl and down, plan is to restart the patient on Precedex, and hopefully start some weaning trials probably again tomorrow. In spite of being on sedation, patient is arousable, he is actually awake, follows simple instructions, but he is noted to be pr ofoundly weak. Asked x-ray is basically about the same showing bilateral infiltrates mostly right upper lobe and left lung. WBC count today is 6.1 hemoglobin is 9.9 electrolytes are normal, renal profile is normal Patient was reevaluated today on 08/30/21, patient remains in the ICU, remains intubated and mechanically ventilated, he is now on assist control rate of 24 tidal volume 450 FiO2 45% PEEP of 12 and I cut it down to 8. ABG showed a pO2 of 95 pCO2 of 40 pH of 7.51. 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 Today I'm going to try the patient on pressure support of 14 and CPAP of 8, and I was watching the patient, he was maintaining good volumes with a pressure support of 14 volumes in the range of 450-500, and he was not in any distress, his rate was in the 20s. Obviously the patient seems to be tolerating pressure support of 14 and CPAP of 8. WBC count today is 8.1 hemoglobin is 9.1. Basic metabolic profile is normal renal profile is normal. Reevaluated today on 08/31/21, patient remains in the ICU, intubated and mechanically ventilated. However yesterday he was able to go for almost 10 hours on pressure support of 14 and CPAP. Patient is now back on pressure support 10 and CPAP, and I plan to keep him on this weaning mode of mechanical ventilation as long as he tolerates it. He seems to be very comfortable, his respiratory rate is in the mid to 20s tidal volume is in the range of 400 up to 500. Chest x-ray is basically about the same. His ABG today showed a pO2 of 103, pCO2 of 43 pH of 7.50. Basic metabolic profile is normal CBC is relatively normal hemoglobin is 9.1. Reevaluated today on 09/01/21, patient remains in the ICU, intubated, mechanically ventilated, yesterday the patient tolerated over 16 hours of pressure support of 10 and CPAP, and today I'm recommending that the patient goes on pressure support of 8 CPAP/5. Patient seems to be doing great, and I have a strong feeling that maybe later on today I couldn't transition the patient to a trach collar. Patient is awake, he was just transitioned from assist-control mode of mechanical ventilation to pressure support of 10 and CPAP, and a change in her on to pressure support of 8. Chest x-ray continues to show same infiltrates in the left lung and right upper lobe. Not much of a change. Clinically however the patient seems to be improving. CBC is relatively normal hemoglobin is 9.2 electrolytes are normal renal profile is normal. Progress note dated 09/02/2021. This is a 31-year-old black male that I saw last on August 18. The patient was admitted to the hospital way back on July 31, intubated on August 06, and had a tracheostomy tube placed on August 14. More recently, he's been doing better, and is currently on pressure support of 8 CPAP of 5. His blood gases this morning showed a pO2 of 96, pCO2 of 32, and pH 7.51. He is currently on Precedex at 0.4 mcg/kg/h, saline at 20 mL an hour, and vital AF 1.2 at 60 mL now which is goal. He remains on Zosyn and Eliquis. When not on pressure support, he is on the volume assist control, rate 24, tidal volume 450, FiO2 35%, and PEEP of 5. This morning, white count 8.9, hemoglobin 8.8, hematocrit 28.5, and platelet count 382,000. Chest x-ray continues to show diffuse bilateral airspace disease consistent with coronavirus associated pneumonia. Objective - Vital Signs Vital signs: Vital Signs Temp 100.2 F H 09/02/21 08:00 Pulse 110 H 09/02/21 09:00 Resp 31 H 09/02/21 09:00 BP 142/82 09/02/21 09:00 Pulse Ox 97 09/02/21 09:00 Intake & Output 09/01/21 09/02/21 09/02/21 18:59 06:59 18:59 Intake Total 9314.508 5571.121 80 Output Total 1455 505 40 Balance -77.141 677.121 40 Weight 109.1 kg 109.1 kg Intake: IV 400 220 20 Piperacillin-Tazobactam 3 200 100 .375 gm In Sodium Chloride 0.9% 100 ml @ 25 mls/hr IVPB Q8HR [facility] Rx# :[id number] Sodium Chloride 0.9% 1, 200 120 20 000 ml @ 20 mls/hr IV . Q24H [facility] Rx#:[id number] Intake, IV Titration 287.859 92.121 Amount Dexmedetomidine/0.9% NaCl 187.859 92.121 (Pmx) 400 mcg In Empty Bag 1 bag @ 0.2 MCG/KG/HR 5.71 mls/hr IV .[id number] [facility] Rx#:[id number] Potassium Chloride 20 meq 100 In Water For Injection 1 100ml.bag @ 50 mls/hr IVPB Q2H [facility] Rx#: [id number] Tube Feeding 600 780 60 Other 90 90 Output: Urine 1455 505 40 Other: Voiding Method Indwelling Catheter Indwelling Catheter ABP, PAP, CO, CI - Last Documented Arterial Blood Pressure 120/59 - Exam No acute distress, awake and alert, with a midline tracheostomy tube in place. HEENT examination is grossly unremarkable. Neck supple. Full range of motion. No adenopathy thyromegaly or neck vein distention. Cardiovascular examination reveals regular rhythm rate. S1-S2 normal. No S3 or S4. No discernible murmur noted. Heart sounds are distant. Heart rate 83 bpm. Lungs reveal coarse bilateral rhonchi. Breath sounds equal bilaterally. No wheezes or crackles. Saturations are 97% on an FiO2 of 35%. Abdomen soft bowel sounds are heard. No masses or tenderness. Extremities are intact. No cyanosis clubbing or edema. Skin is without rash or lesion. Neurologic examination other than weakness of the extremities, appears to be relatively normal. - Labs CBC & Chem 7: 09/02/21 09:28 09/01/21 03:19 Labs: Abnormal Lab Results - Last 24 Hours (Table) 09/01/21 09/01/21 09/02/21 Range/Units 11: 18:04 00:11 RBC (4.30-5.90) m/uL Hgb (13.0-17.5) gm/dL Hct (39.0-53.0) % MCHC (31.0-37.0) g/dL RDW (11.5-15.5) % ABG pH (7.35-7.45) ABG HCO3 (21-25) mmol/L ABG Total CO2 (19-24) mmol/L ABG O2 Saturation (94-97) % POC Glucose (mg/dL) 120 H 107 H 122 H (75-99) mg/dL 09/02/21 09/02/21 09/02/21 Range/Units 05:50 05:58 09:28 RBC 3.02 L (4.30-5.90) m/uL Hgb 8.8 L (13.0-17.5) gm/dL Hct 28.5 L (39.0-53.0) % MCHC 30.9 L (31.0-37.0) g/dL RDW 18.3 H (11.5-15.5) % ABG pH 7.51 H (7.35-7.45) ABG HCO3 33 H (21-25) mmol/L ABG Total CO2 35 H (19-24) mmol/L ABG O2 Saturation 99.0 H (94-97) % POC Glucose (mg/dL) 105 H (75-99) mg/dL Microbiology - Last 24 Hours (Table) 08/26/21 11:21 Blood Culture - Final Blood No Growth after 144 hours 08/26/21 11:00 Blood Culture - Final Blood No Growth after 144 hours Assessment and Plan Assessment: Acute hypoxemic respiratory failure secondary to coronavirus associated pneumonia, status post intubation and mechanical ventilation on August 06. Status post tracheostomy tube insertion, 08/14/2021. Unfortunately, PEG tube could not be placed on that same day. Acute respiratory distress syndrome, secondary to coronavirus infection. Elevated inflammatory marker secondary to coronavirus infection. Acute/subacute pulmonary embolism. Elevated liver enzymes secondary to coronavirus infection. Morbid obesity. Benign essential hypertension. Acute kidney injury, recovered. Critical illness polyneuropathy/myopathy. Plan: Plan dated 08/12/2021. We'll attempt to get the patient off of the paralytic if possible. I gave instructions to the nurse. In addition, we will continue with the propofol and the fentanyl for now. We'll reduce the FiO2 down from 60%, down to 50%. I told the nurses and respiratory therapist except saturations in the mid 80s or higher. The patient will continue on heparin for now. Additional recommendations and suggestions are forthcoming. Prognosis is guarded. We will continue to follow this patient, and make recommendations where appropriate. Plan dated 08/13/2021. We're unable to get the patient off the paralytic. During his bath, his saturations dropped and his blood pressure went up. The nurses contacted me. I ordered the FiO2 to be increased to 100%, and also use labetalol IV for blood pressure control. At that point, he was on maximal dose Cleveprex. He is scheduled for a tracheostomy and PEG tube tomorrow. I think that's espinoza. We will repeat a blood gas and a few minutes. His FiO2 is been weaned down to 75%. Additional recommendations and suggestions are forthcoming. His medications are reviewed. He remains on Zosyn and Levaquin. Microbiology is as far all negative. Plan dated 08/14/2021. The patient's going to have a tracheostomy and PEG tube placed today by surgery. I think that will give him the best chance of full recovery. The patient's FiO2 was increased from 40%, up to 55%, when I was alerted about the morning blood gases. Patient remains on fentanyl, propofol, and Nimbex. We will resume tube feedings after 24 hours post placement of the feeding tube. Labs, x-rays, and medications all reviewed. Everything is appropriate at this time. The patient remains on antibiotics in the form of Zosyn and Levaquin. Microbiology thus far as all been negative. We will continue to follow make recommendations where appropriate. Prognosis is guarded. Plan dated 08/15/2021. The patient did have his tracheostomy tube placed on August 14. Unfortunately, the PEG tube was not able to be place. The patient will be started back on heparin. The nurses will attempt to place an NG tube. The patient remains on propofol, Nimbex, and fentanyl. We will restart tube feeds once the NG tube was replaced. Overall prognosis remains very guarded. Labs, x-rays, and medications are all reviewed. Everything does seem to be appropriate. We will continue to follow this patient, and make recommendations where appropriate. The patient remains on Zosyn and Levaquin, and all microbiologic studies as far have been negative. Plan dated 08/16/2021. The patient is doing about the same. The goal today would be to try to get him off the paralytic. The patient's labs, x-rays, and medications are all reviewed. Everything is appropriate. We will continue to follow closely and make every attempt the patient moving in the right direction and eventually off the ventilator. The patient remains on Zosyn and Levaquin. Microbiologic studies have been negative. Additional recommendations and suggestions are forthcoming. We will continue to follow this patient and make recommendations where appropriate. Plan dated 08/17/2021. Currently, the patient appears to be reasonably stable. We will drop the PEEP from 20 down to 15 cm water. Blood gases this morning were excellent. The patient did receive blood, platelets, and protamine. Because of bleeding around the tracheostomy site. Remains on fentanyl, propofol and Nimbex. He is getting nourished at goal. Yesterday, we attempted to stop the Nimbex, but we had to restart it because became very tachypnea. Additional recommendations and suggestions are forthcoming. Prognosis is guarded. The patient is very critically ill. Plan dated 08/18/2021. Currently, the blood pressures much better controlled on labetalol. In addit ion, yesterday, the PEEP was dropped from 20 cm of water to 15 cm water. The patient remains on appropriate medications and sedatives. The patient was not able to tolerate a holiday from the [facility]. The patient continues on tube feeds. Additional recommendations and suggestions are forthcoming. We will continue to follow make recommendations were appropriate. Prognosis is guarded. This patient is very critically ill. Plan dated 09/02/2021. The patient appears to be moving in the proper direction. He is awake and alert. He does have diffuse muscle weakness. The patient is currently on pressure support of a CPAP of 5 and 35%. Arterial blood gases are adequate. We will continue to follow. The patient currently is on a saline drip at 20 mL an hour, Precedex, and tube feeds at goal. Prognosis is still guarded. We will continue to follow make recommendations where appropriate. Time with Patient: Greater than 30
[2021-09-02 11:16] LABS: Glucose,Whole Blood 116 mg/dL (75-99)
[2021-09-02] MEDS: POTASSIUM BICARBONATE/CIT AC 20 MEQ TABLET.EFF NG-TUBE SCH ×2 (11:46→13:29)
--- NOTE | 2021-09-02 13:02 | P.PN ---
Subjective Progress Note Date: 09/02/21 CHIEF COMPLAINT: COVID-19 pneumonia HISTORY OF PRESENT ILLNESS: Patient remains in the ICU on mechanical ventilation. Patient did a trial of trach collar and yesterday. He did become exhausted afterwards. He is undergoing a trial CPAP today. He is awake. He is getting tube feedings for nutrition support. Patient is status post tracheostomy revision with Dr. coelho. He is status post tracheostomy placement on 08/14/21. Patient had 2 attempts for PEG tube placement that have been unsuccessful. He currently has NG tube in place to receive tube feedings. Afebrile FiO2 45% WBC 8.9 hemoglobin 8.8 potassium 3.3. They're looking at transferring patient to select specialty. PHYSICAL EXAM: VITAL SIGNS: Reviewed. GENERAL: Well-developed in no acute distress. HEENT: No sclera icterus. Extraocular movements grossly intact. Moist buccal mucosa. Head is atraumatic, normocephalic. Tracheostomy site clean dry and intact ABDOMEN: Soft NEUROLOGIC: sedated ASSESSMENT: 1. Acute hypoxic respiratory failure due to COVID-19 pneumonia with prolonged mechanical intubation. Status post tracheostomy placement and revision 2. Severe protein calorie malnutrition PLAN: -Continue ICU management -Continue supportive care -Continue weaning trials Physician [employer] note has been reviewed by physician. Signing provider agrees with the documented findings, assessment, and plan of care. Objective - Vital Signs Vital signs: Vital Signs Temp 99.1 F 09/02/21 12:00 Pulse 104 H 09/02/21 12:00 Resp 28 H 09/02/21 12:00 BP 114/68 09/02/21 12:00 Pulse Ox 97 09/02/21 12:00 Intake & Output 09/01/21 09/02/21 09/02/21 18:59 06:59 18:59 Intake Total 3980.392 2324.121 394.596 Output Total 5873 928 1774 Balance -77.141 677.121 -1505.404 Weight 109.1 kg 109.1 kg Intake: IV 400 220 120 Piperacillin-Tazobactam 3 200 100 .375 gm In Sodium Chloride 0.9% 100 ml @ 25 mls/hr IVPB Q8HR [facility] Rx# :[id number] Sodium Chloride 0.9% 1, 200 120 120 000 ml @ 20 mls/hr IV . Q24H [facility] Rx#:[id number] Intake, IV Titration 287.859 92.121 94.596 Amount Dexmedetomidine/0.9% NaCl 187.859 92.121 94.596 (Pmx) 400 mcg In Empty Bag 1 bag @ 0.2 MCG/KG/HR 5.71 mls/hr IV .[id number] [facility] Rx#:[id number] Potassium Chloride 20 meq 100 In Water For Injection 1 100ml.bag @ 50 mls/hr IVPB Q2H [facility] Rx#: [id number] Tube Feeding 600 780 180 Other 90 90 Output: Urine 0392 [id number] 7779 Other: Voiding Method Indwelling Catheter Indwelling Catheter Indwelling Catheter ABP, PAP, CO, CI - Last Documented Arterial Blood Pressure 120/59 - Labs CBC & Chem 7: 09/02/21 09:28 09/02/21 09:24 Labs: Abnormal Lab Results - Last 24 Hours (Table) 09/01/21 09/02/21 09/02/21 Range/Units 18:04 00:11 05:50 RBC (4.30-5.90) m/uL Hgb (13.0-17.5) gm/dL Hct (39.0-53.0) % MCHC (31.0-37.0) g/dL RDW (11.5-15.5) % ABG pH 7.51 H (7.35-7.45) ABG HCO3 33 H (21-25) mmol/L ABG Total CO2 35 H (19-24) mmol/L ABG O2 Saturation 99.0 H (94-97) % Potassium (3.5-5.1) mmol/L BUN (9-20) mg/dL Glucose (74-99) mg/dL POC Glucose (mg/dL) 107 H 122 H (75-99) mg/dL 09/02/21 09/02/21 09/02/21 Range/Units 05:58 09:24 09:28 RBC 3.02 L (4.30-5.90) m/uL Hgb 8.8 L (13.0-17.5) gm/dL Hct 28.5 L (39.0-53.0) % MCHC 30.9 L (31.0-37.0) g/dL RDW 18.3 H (11.5-15.5) % ABG pH (7.35-7.45) ABG HCO3 (21-25) mmol/L ABG Total CO2 (19-24) mmol/L ABG O2 Saturation (94-97) % Potassium 3.3 L (3.5-5.1) mmol/L BUN 25 H (9-20) mg/dL Glucose 118 H (74-99) mg/dL POC Glucose (mg/dL) 105 H (75-99) mg/dL 09/02/21 Range/Units 11:14 RBC (4.30-5.90) m/uL Hgb (13.0-17.5) gm/dL Hct (39.0-53.0) % MCHC (31.0-37.0) g/dL RDW (11.5-15.5) % ABG pH (7.35-7.45) ABG HCO3 (21-25) mmol/L ABG Total CO2 (19-24) mmol/L ABG O2 Saturation (94-97) % Potassium (3.5-5.1) mmol/L BUN (9-20) mg/dL Glucose (74-99) mg/dL POC Glucose (mg/dL) 116 H (75-99) mg/dL Microbiology - Last 24 Hours (Table) 08/26/21 11:21 Blood Culture - Final Blood No Growth after 144 hours 08/26/21 11:00 Blood Culture - Final Blood No Growth after 144 hours
[2021-09-02] MEDS: SODIUM CHLORIDE 0.9% 1,000 ML IV SCH (13:59)
[2021-09-02 18:15] LABS: Glucose,Whole Blood 102 mg/dL (75-99)
[2021-09-02 23:50] LABS: Glucose,Whole Blood 109 mg/dL (75-99)
[2021-09-03] MEDS: DEXMEDETOMIDINE/0.9% NACL(PMX) 400 MCG in EMPTY BAG 1 BAG IV SCH ×3 (03:12→20:49)
[2021-09-03 05:03] LABS: Anisocytosis Slight; HCT 29.2 % (39.0-53.0); HGB 8.9 gm/dL (13.0-17.5); Hypochromasia Marked; MCH 28.5 pg (25.0-35.0); MCHC 30.4 g/dL (31.0-37.0); MCV 93.7 fL (80.0-100.0); Mean Platelet Volume 9.9; Platelet Count 381 k/uL (150-450); RBC 3.12 m/uL (4.30-5.90); RDW 18.2 % (11.5-15.5)
[2021-09-03 05:19] LABS: African American GFR (CKD) >90 (>60 ml/min/1.73 sqM); Anion Gap 6 mmol/L; Blood Urea Nitrogen 28 mg/dL (9-20); Calcium 8.9 mg/dL (8.4-10.2); Carbon Dioxide 32 mmol/L (22-30); Chloride 100 mmol/L (98-107); Glucose 102 mg/dL (74-99); Non-African American GFR(CKD) >90 (>60 ml/min/1.73 sqM); Potassium 3.6 mmol/L (3.5-5.1); Sodium 138 mmol/L (137-145)
[2021-09-03] MEDS ORDERED: Potassium Replacement Protocol 1 EACH MISC MISCELLANE PRN (05:21)
[2021-09-03 05:22] LABS: ABG HCO3 34 mmol/L (21-25); ABG Oxygen Saturation 96.1 % (94-97); ABG PCO2 42 mmHg (35-45); ABG PH 7.52 (7.35-7.45); ABG PO2 71 mmHg (83-108); ABG TCO2 35 mmol/L (19-24); Allen Test Performed? Yes
[2021-09-03] MEDS ORDERED: POTASSIUM BICARBONATE/CIT AC 20 MEQ TABLET.EFF NG-TUBE SCH ×2 (06:00→13:00)
[2021-09-03 06:02] LABS: Glucose,Whole Blood 107 mg/dL (75-99)
[2021-09-03] MEDS: INSULIN ASPART (NovoLOG) 100 UNIT/ML VIAL SQ SCH ×3 (06:07→18:11)
[2021-09-03] MEDS: ALBUTEROL HFA INHALER INHALATION PRN ×3 (07:12→20:21)
[2021-09-03] MEDS: bisacodyL 10 MG SUPP RECTAL SCH (09:31)
[2021-09-03] MEDS: SENNOSIDES-DOCUSATE SODIUM 1 EACH TAB PO SCH (09:32)
[2021-09-03] MEDS: hydrALAZINE HCL 25 MG TAB PO SCH ×3 (09:38→20:47)
[2021-09-03] MEDS: FUROSEMIDE 10 MG/ML 4 ML VIAL IV SCH (09:38)
[2021-09-03] MEDS: PANTOPRAZOLE 40 MG/10 ML VIAL IVP SCH ×2 (09:38→20:46)
[2021-09-03] MEDS: CHLORHEXIDINE GLUCONATE 15 ML CUP MUCOUS MEM SCH ×2 (09:38→20:46)
[2021-09-03] MEDS: METOPROLOL TARTRATE 50 MG TAB PO SCH ×2 (09:38→20:46)
[2021-09-03] MEDS: APIXABAN 5 MG TAB PO SCH ×2 (09:38→20:47)
[2021-09-03] MEDS: QUEtiapine 25 MG TAB PO SCH ×2 (09:39→20:47)
[2021-09-03] MEDS: CHOLECALCIFEROL 25 MCG (1000 IU) TABLET PO SCH (09:39)
[2021-09-03] MEDS: ZINC SULFATE 220 MG CAP PO SCH (09:39)
[2021-09-03] MEDS: ASCORBIC ACID 500 MG TAB PO SCH (09:39)
[2021-09-03] MEDS: amLODIPine 5 MG TAB PO SCH ×2 (09:39→21:22)
--- NOTE | 2021-09-03 09:45 | XR ---
EXAMINATION TYPE: XR chest 1V portable DATE OF EXAM: 09/03/2021 COMPARISON: 09/02/2020 INDICATION: Short of breath TECHNIQUE: Single frontal view of the chest is obtained. FINDINGS: The heart size is highly prominent. The pulmonary vasculature is prominent. Diffuse increased lung markings are present bilaterally greater on the left. Tracheostomy tube is in the midline. Nasogastric tube transverses the thorax. EKG leads overlie the c hest. IMPRESSION: 1. Diffuse increased lung markings are nonspecific. Correlate for ARDS. Findings are worsening over t he interval. 2. Lines and catheters discussed above
--- NOTE | 2021-09-03 10:22 | P.PN ---
Subjective Progress Note Date: 09/03/21 Principal diagnosis: Coronavirus associated pneumonia. Acute hypoxic respiratory failure secondary to COVID-19 pneumonia On today's evaluation patient is seen in follow-up on 08/05/2021, he is currently on BiPAP support with pressure of 14/8, and the pulse ox is 87-93%, patient does alternate with Airvo at 60 L and 90% FiO2, and at bedtime and as needed for periods of time during the day he does go on BiPAP. He is awake and alert, he sitting up on the edge of the bed, dyspneic with exertion, but no acute distress, he remains on Bicitra neb, he is on IV Decadron, Lovenox 60 mg twice daily, he is on 0.9 normal saline at a rate of 50 ML per hour, he is on multivitamins, his latest chest x-ray from 08/04/2021 showed improved inspiration, improved right basilar focal consolidation, and persistent bilateral diffuse reticulonodular opacities in the lower lungs consistent with known COVID-19 infection. Today's labs have been reviewed, his white blood cell count is 19.1, hemoglobin is 13.1, d-dimer is 14.3, sodium is 133, the rest of electrolytes and renal profile were fairly unremarkable, his inflammatory markers are relatively stable and LDH is 2935, and CRP is 18.2, pro calcitonin level is slightly improved and is down to 0.40. His blood and sputum cultures have shown no growth. He did have a fever with a temp of 101.7F. Currently afebrile. No complaints of chest discomfort. No hemoptysis, his lower extremity Dopplers were negative for DVT. On 08/06/2021 patient seen in follow-up on medical surgical floor. Patient still requiring high flow oxygen per Airvo, and he is requiring BiPAP support most of time with pressures of 14/88 and FiO2 of 100% and his pulse ox is 87- 90%, he continues to have fevers, with a T-max 101.7F, overnight his fever pa ttern has improved and he still having some low-grade fevers. He is short of breath with any exertion. He continues on Decadron 6 mg daily, Baricitinib, and Lovenox at intermediate dosing at 0.5 mg/kg twice daily which is above 60 mg twice daily for this patient's weight. His d-dimer is down to 8.58 on today's labs, improved although still significantly elevated, lower extremity Dopplers were negative for any evidence of DVT. There is concern for superimposed bacterial infection, especially in view of fever, and elevated white blood cell count. Today's white count is 22.1, hemoglobin is 13, sodium is 131, rest of electrolytes were within normal limits, B1 is 27 creatinine 0.89, pro Level Was Borderline at 0.40, Also Suggestive of a Possible Super Imposed Bacterial Infection. Patient was transferred yesterday to the ICU, and around 2 AM this morning, I was notified about this patient is not doing well. Patient was noted to be desaturating, anxious, tachycardic, and patient did not improve much with Precedex. Hence I recommended intubating the patient. Patient was intubated by [facility] [employer], trace on mechanical ventilation, and he is now on assist control rate of 38, tidal volume of 375 100% FiO2 and PEEP is 18. His ABG showed a pO2 of 99 pCO2 57 pH of 7.27. Patient is on multiple drips including propofol at 50 fentanyl at 0.25 mcg/kg/h, Nimbex at 1 and he is on IV fluid 0.9 normal saline at 50 mL per hour. Patient was actually intubated around 2:45 AM this morning. Reviewed his chest x-ray, clearly showed bilateral infiltrates, consistent with COVID-19 pneumonia. His endotracheal tube is in the proper position. And his orogastric tube is also in the proper position. After reviewing his ABG, I cut down his FiO2 to 90%, may consider going higher on the PEEP, may also consider placing the patient in prone position. I have consulted interventional radiology for a PICC line placement, and I went ahead and placed a right radial arterial line. Patient will be off heparin for a couple of hours prior to the PICC line placement. I reviewed his CT angiogram of the chest from yesterday, the minor evidence of pulmonary embolism is not clinically impressive, however nonetheless the patient will need to be heparinized noticing that he has elevated d-dimer and the fact that he has COVID-19 pneumonia which is a major provoking factor for thrombus embolic disease. WBC count today is 19 hemoglobin is 11.9 his PTT was therapeutic initially at 50.1, and this morning it is 37.9, patient received a heparin bolus. Electrolytes are normal potassium is 5.1 BUN is 28 creatinine is 1.03. Medications espinoza, patient is on albuterol, amlodipine, vitamin C, Peridex, vitamin D, Nimbex, Decadron 6 mg IV push daily, fentanyl, heparin, hydralazine, metoprolol, lisinopril, Protonix, Zosyn, and zinc. Used to be on baricitimib, however because of his leukocytosis and elevat ed pro calcitonin, this was discontinued, and we started the patient empirically on antibiotics. Blood cultures and sputum cultures so far are negative. And they seem to be nondiagnostic so far. At one point, the patient was spiking fevers, his T-max yesterday was 99.1. The patient is seen today 08/08/2021 and follow-up in the intensive care unit. He remains intubated, sedated, paralyzed and on the mechanical ventilator. Current settings are assist control at a rate of 38, tidal volume 375, FiO2 100% and a PEEP of 18. Peak pressures of 35, plateau of 33. Morning blood gases revealed a PaO2 of 205, pCO2 56, pH 7.22. He remains in sinus tachycardia currently at 104. He is currently on propofol 50 mcg/kg/m, fentanyl at 0.25 mcg/kg per hour, Nimbex at 1 mcg/kg/m, heparin drip per weight-based protocol. 0.9 normal saline at 125 ML's per hour. Staff did attempt to prone the patient yesterday however he had a significant cuff leak, significant desaturations and had to be placed back in supine position almost immediately. Chest x-ray reveals continued diffuse fine interstitial infiltrates, left greater than right with possibly some slight improvement in aeration. Blood cultures reveal no growth. Sputum cultures reveal no growth. White count 15.1. Hemoglobin 9.8. Platelets 230. Lymphocytes 0.8. Sodium 133. Potassium 5.6. Bicarb 21. Creatinine 2.88. Blood glucose 118. AST 39. ALT 61. He is continued on Decadron, Zosyn, vitamin supplements. He is currently afebrile. Not requiring pressors. He is being nourished with vital AF at 20 ML's per hour. Reevaluated today on 08/09/2021, patient remains in the ICU, intubated and mechanically ventilated, sedated and paralyzed. Ventilator settings are assist control rate of 38 tidal volume 375 FiO2 65% PEEP increased to 20 this morning. ABG earlier on a PEEP of 18 showed a pO2 of 66 pCO2 of 56 pH of 7.35. Patient is on Nimbex at 2 mcg/kg/m fentanyl 0.5 mcg/kg/h propofol at 55 mcg/kg/m still on a bicarb drip at 75 mL per hour. Patient is on enteral feeding using vital AF 28/28. Patient remains on Decadron at 6 mg IV push twice a day. Remains on heparin. Remains on the COVID-19 cocktail. Remains on albuterol, remains on GI prophylaxis. Insulin as per protocol, metoprolol Pavithra and empirically on Zosyn for his elevated pro calcitonin level. Chest x-ray continues to show bilateral interstitial infiltrates consistent with COVID-19 pneumonia not much of a change noted on the chest x-ray today. Labs, showed relatively normal CBC. PTT is 41.6, patient is on heparin, electrolytes are normal renal profile showed slight improvement to BUN is 53 creatinine 2.22. Repeat pro calcitonin yesterday was 5.5, last LDH was 2931, and C-reactive protein is elevated at 31.6 Reevaluated today on 08/10/2021, remains in the ICU intubated and mechanically ventilated, sedated and paralyzed. Thank you the settings are assist control rate 38 tidal volumes at 375 FiO2 50% PEEP of 20, peak airway pressure 39 left total pressure is 37 ABG showed a pO2 of 65 pCO2 52 pH of 7.35. Remains on multiple drips including Nimbex at 2 mcg/kg/m, propofol at 70 micrograms per kilo per minute fentanyl at 1.5 mcg/kg/m and cutting down to 1 mcg/kg/m. Remains on enteral feeding with vital AF 28/28. Remains on Decadron 6 mg twice a day remains on Zosyn and his last procalcitonin was 5.5 Chest x-ray continues to show evidence of bilateral infiltrates left seems to be more involved than the right. Labs today showed d-dimer of 1.78 down from 8.58, patient remains on heparin. CT of the chest showed nonocclusive thromboembolic disease. LDH is down to 1114 from 2931 and C-reactive protein is elevated at 19.9 but much better compared to a few days ago where it was about 32. WBC count is 11.8 hemoglobin is 8.4. Platelets are 317,000 Patient was reevaluated today on 08/11/21, patient remains in the ICU, intubated and mechanically ventilated. Patient is sedated and paralyzed, he is on Nimbex at 1.5 mcg/kg/m, fentanyl at 1 mcg/kg/h, propofol is 65 mcg/kg/h, he is also on heparin drip and he is on IV fluid at 65 mL per hour in the form of 0.9 normal saline. Patient is receiving enteral feeding vital AF Ventilator settings include assist control rate of 38 tidal volume 375 FiO2 60% PEEP of 20, ABG showed a pO2 of 58 pCO2 of 55 pH of 7.31, and this was on 55%, hence the FiO2 was increased to 60%. Patient desaturates even with a PEEP down to 18, hence I'm keeping him on a PEEP of 24 now. Chest x-ray shows bilateral infiltrates, however the left lower lobe seems to be more involved than the rest of the lungs, more infiltrate noted in the left lower lobe area. Patient remains on Zosyn, he is off baricitinib, mostly because of his elevated pro calcitonin level, and he was placed on antibiotics empirically. And will add Levaquin empirically in addition to Zosyn. Cultures so far are nondiagnostic. Patient remains on Decadron 6 mg twice a day. And he is also on the COVID-19 cocktail. Patient remains on the COVID-19 cocktail, and he remains on GI and DVT prophylaxis Progress note dated 08/12/2021. 31-year-old black male, again seen in the intensive care unit, room 262. The patient was admitted on July 31 with coronavirus associated pneumonia. He was moved to the intensive care unit on August 06 and intubated on the same day for worsening respiratory failure with hypoxemia. Currently, the patient remains on the mechanical ventilator. He is on the volume assist control mode, rate 38, tidal volume 375, FiO2 60%, to be decreased to 50%, and PEEP of 20. Arterial blood gases show pO2 of 70, pCO2 of 49, and a pH is 7.36. The patient is receiving saline at 50 mL an hour, propofol 60 mcg/kg/m, Nimbex at 2 mcg/kg/m with train of four monitoring, heparin via weightbase protocol, fentanyl at 2 mcg/kg/h, and vital AF at goal, which is 28 mL an hour. White count 15, hemoglobin 7.8, hematocrit 26.1, and platelet count 433,000. D-dimer was 1.68. Sodium 140, potassium 5.3, chlorides 111, CO2 25, anion gap 4, BUN 60, and creatinine 1.73. LDH is 1160. C-reactive protein is 5.8. Chest x-ray shows diffuse bilateral infiltrates. This is consistent with his known diagnosis of coronavirus associated pneumonia. Endotracheal tube is about 3-1/2 cm above the tracheal delmer. Progress note dated 08/13/2021. 31-year-old black male, again seen in the intensive care unit, room 262. The patient was admitted to the hospital on July 31 with coronavirus associated pneumonia. He was moved to the intensive care unit on August 06, and intubated on the same day for worsening hypoxemic respiratory failure. The patient remains on mechanical ventilator. His ventilator settings include the volume assist control, rate 38, tidal volume 375, FiO2 currently 75%, with a PEEP of 20. He had blood gases done early in the morning showing a pO2 of 49, pCO2 of 62, and a pH is 7.26. That was when he was on 50% and when he was getting a bath. Subsequently, we increase his FiO2 to 100%, and he is now been weaned down to 75%. I did asked the respiratory therapist to repeat an ABG. The patient's currently receiving propofol at 75 mcg/kg/m, Nimbex at 2 mcg/kg/m, fentanyl at 3 mcg/kg/h, and heparin via weightbase protocol. He is getting saline at KVO, and tube feedings with Nepro at 14 mL an hour, which is goal. He remains on Zosyn and Levaquin. He is apparently scheduled for tracheostomy and PEG tube placement on Thursday. White count is 30, hemoglobin 9.5, hematocrit 31.7, platelet count 634,000. D-dimer is 2.68. Sodium 140, potassium 5.6, chlorides 108, CO2 27, anion gap 5, BUN 51, and creatinine 1.61. LDH is 1730. C-reactive protein is 4.1. Albumin is 3.1. Chest x-ray shows diffuse bilateral infiltrates, essentially unchanged. Progress note dated 08/14/2021. 31-year-old black male, again seen in the intensive care unit, room 262. The patient was admitted to the hospital on July 31 with coronavirus associated pneumonia. He was moved to the intensive care unit on August 06, and intubated on the same day for worsening oxygenation. The patient remains on the mechanical ventilator. Today, the patient will have a tracheostomy tube placed as well as a PEG tube placed. Current ventilator settings include the volume assist control mode, rate 38, tidal volume 375, FiO2 55%, and PEEP of 20. Blood gases on the same settings except for 40% FiO2, show a PaO2 of 49, pCO2 of 51, and a pH 7.37. When I was alerted about these blood gases, I increased the FiO2 from 40% up to 55%. Currently, saturations are in the low 90s. The patient's on Nimbex at 2 g kilogram per minute, propofol at 65 mcg/kg/m, 0.9 saline at 20 mL an hour, fentanyl at 2 mcg/kg/h, heparin via weightbase protocol, and tube feedings are currently on hold for anticipated tracheostomy and PEG tube today. White count 17.5, hemoglobin 7.7, hematocrit 25.1, and platelet count 462,000. Sodium 139, potassium 5.2, chlorides 108, CO2 24, anion gap 7, BUN 51, and crea tinine 1.77. Chest x-ray again shows diffuse bilateral infiltrates, which are essentially unchanged. Progress note dated 08/15/2021. 31-year-old black male, again seen in the ICU, room 262. The patient was admitted to the hospital on July 31 with coronavirus associated pneumonia. Because of worsening hypoxemia, he was moved to the intensive care unit on August 06. It's intubated on the same day. He remains on mechanical ventilator. Yesterday, he had a tracheostomy performed. A PEG tube was apparently attempted, but not able to be performed. He remains on the volume assist control mode with, with a rate of 38, tidal volume 375, FiO2 55%, any. Arterial blood gases show pO2 70, pCO2 37, and a pH is 7.4. The patient's currently on propofol at 75 mcg/kg/m, Nimbex at 2 mcg/kg/m, fentanyl at 2.5 mcg/kg/h, saline at 20 mL an hour, and he will be restarted on IV heparin. Unfortunately, there was no NG tube. It was removed during the attempted procedure yesterday, and the nurses have been having a hard time replacing it. We will try again today. White count 15.6, hemoglobin 7.4, hematocrit 23.7, and platelet count 404,000. PTT was 20.9. D-dimer 3.76. Sodium 137, potassium 4.9, chlorides 105, CO2 25, anion gap 7, BUN 49, and creatinine 1.59. Chest x- ray continues to show diffuse bilateral infiltrates, may be a bit improved. Progress note dated 08/16/2021. 31 yo black male, again seen in the intensive care unit, room 262. The patient was admitted to the hospital on July 31, with coronavirus associated pneumonia. Because of worsening hypoxemia, he was moved to the intensive care unit on August 06, and intubated on the same day. He remains on the mechanical ventilator. On August 14, the patient underwent tracheostomy. The PEG tube was attempted, but was not able to be done. Ventilator settings include the volume assist control mode, rate 38, tidal volume 375, FiO2 55%, and PEEP of 20. Blood gases show a PaO2 of 70, pCO2 of 52, and a pH of 7.34. The patient is currently on fentanyl, at 4 mcg/kg/h, propofol at 75 mcg/kg/m, Nimbex at 2 mcg/ kg/m, Nepro, at 14 mL an hour, which is goal, and saline at KVO. White count 15.7, hemoglobin 7.5, hematocrit 23.9, platelet count 429,000. D-dimer was 5.08. Sodium 137, potassium 4.7, chlorides 107, CO2 24, anion gap is 6, BUN 41, creatinine 1.30. Albumin is 2.8. C-reactive protein is 3.8. Chest x-ray shows diffuse bilateral infiltrates. No change in chest x-ray compared to prior x- rays. Progress note dated 08/17/2021. 31-year-old black male, seen again in the intensive care unit, room 262. The patient was admitted to the hospital on July 31, with coronavirus associated pneumonia. Because of worsening hypoxemia, he was moved to the intensive care unit on August 06 and intubated on the same day. He remains on the mechanical ventilator. On August 14, the patient underwent tracheostomy. The PEG tube was attempted, but could not be performed. Current ventilator settings include the volume assist control mode, rate 38, tidal volume 375, FiO2 50%, PEEP of 20, to be turned down to 15. Arterial blood gases show pO2 of 81, pCO2 48, and a pH is 7.36. The patient's on saline at 20 mL an hour, fentanyl at 4 mcg/kg/h, propofol at 75 mcg/kg/m, Nimbex at 3 g kilogram per minute, and tube feedings with Nepro at 14 mL an hour, which is goal. Last night, because of bleeding around the tracheostomy site, I gave the patient 1 unit of packed red blood cells, 1 unit of platelets, and protamine sulfate. The bleeding did stop. White count is 15.2, hemoglobin 7.7, hematocrit 24.6, and platelet count 348,000. Sodium 135, potassium 4.7, chlorides 107, CO2 25, anion gap 3, BUN 32, creatinine 1.26. Chest x-ray from today, shows stable bilateral pulmonary infiltrates. Progress note dated 08/18/2021. 31-year-old black male, again seen in room 262. He was admitted to the hospital on July 31 with coronavirus associated pneumonia. On August 06, because of worsening hypoxemic respiratory failure, the patient was moved to the ICU and intubated. On August 14, the patient underwent tracheostomy tube placement. A PEG tube was attempted, but could not be performed because of anatomic reasons. The patient remains on the volume assist control mode, rate 38, tidal volume 375, FiO2 50%, PEEP of 15. Blood gases show pO2 61 pCO2 55 and a pH is 7.30. The patient is currently on fentanyl at 4.5 mcg/kg/h, Nimbex at 3 mcg/kg/m, propofol at 75 mcg/kg/m, Cleveprex at 13 mg an hour Nepro, at 13 mL an hour which is goal. The patient did not tolerate a Nimbex holiday. Today regarding increased his labetalol, so that we can get him off the Cleveprex. We'll use 1 0-20 mg IV, every 2 hours, for systolic greater than 160 or mean arterial pressure greater than 100. Current laboratory data includes a white count of 14.7 in room 8.7 hematocrit 27.5 and a platelet count 349,000. Sodium potassium chloride CO2 all normal. Anion gap 6. BUN 28, creatinine 1.16. Albumin was 3.1. Chest x-ray continues to show diffuse bilateral patchy infiltrates. There is also the presence of the midline tracheostomy tube. Reevaluated today on 08/29/21, patient remains in the ICU, intubated and mechanically ventilated. He is on assist control rate of 24 tidal volume 450 F iO2 45% PEEP of 12. Patient remains on propofol at 35 mcg/kg/m, he is also on fentanyl at 20 mcg/kg/h, and he is on IV fluid at KVO. His ABG today showed a pO2 of 87 pCO2 46 pH of 7.44. Patient underwent tracheostomy change yesterday by general surgery, and it seems to be functioning quite well. Patient remains on Nepro, not yet to goal, and the dose is being increased gradually. He is off Nimbex, and we are tapering his propofol and fentanyl and down, plan is to restart the patient on Precedex, and hopefully start some weaning trials probably again tomorrow. In spite of being on sedation, patient is arousable, he is actually awake, follows simple instructions, but he is noted to be pr ofoundly weak. Asked x-ray is basically about the same showing bilateral infiltrates mostly right upper lobe and left lung. WBC count today is 6.1 hemoglobin is 9.9 electrolytes are normal, renal profile is normal Patient was reevaluated today on 08/30/21, patient remains in the ICU, remains intubated and mechanically ventilated, he is now on assist control rate of 24 tidal volume 450 FiO2 45% PEEP of 12 and I cut it down to 8. ABG showed a pO2 of 95 pCO2 of 40 pH of 7.51. 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 Today I'm going to try the patient on pressure support of 14 and CPAP of 8, and I was watching the patient, he was maintaining good volumes with a pressure support of 14 volumes in the range of 450-500, and he was not in any distress, his rate was in the 20s. Obviously the patient seems to be tolerating pressure support of 14 and CPAP of 8. WBC count today is 8.1 hemoglobin is 9.1. Basic metabolic profile is normal renal profile is normal. Reevaluated today on 08/31/21, patient remains in the ICU, intubated and mechanically ventilated. However yesterday he was able to go for almost 10 hours on pressure support of 14 and CPAP. Patient is now back on pressure support 10 and CPAP, and I plan to keep him on this weaning mode of mechanical ventilation as long as he tolerates it. He seems to be very comfortable, his respiratory rate is in the mid to 20s tidal volume is in the range of 400 up to 500. Chest x-ray is basically about the same. His ABG today showed a pO2 of 103, pCO2 of 43 pH of 7.50. Basic metabolic profile is normal CBC is relatively normal hemoglobin is 9.1. Reevaluated today on 09/01/21, patient remains in the ICU, intubated, mechanically ventilated, yesterday the patient tolerated over 16 hours of pressure support of 10 and CPAP, and today I'm recommending that the patient goes on pressure support of 8 CPAP/5. Patient seems to be doing great, and I have a strong feeling that maybe later on today I couldn't transition the patient to a trach collar. Patient is awake, he was just transitioned from assist-control mode of mechanical ventilation to pressure support of 10 and CPAP, and a change in her on to pressure support of 8. Chest x-ray continues to show same infiltrates in the left lung and right upper lobe. Not much of a change. Clinically however the patient seems to be improving. CBC is relatively normal hemoglobin is 9.2 electrolytes are normal renal profile is normal. Progress note dated 09/02/2021. This is a 31-year-old black male that I saw last on August 18. The patient was admitted to the hospital way back on July 31, intubated on August 06, and had a tracheostomy tube placed on August 14. More recently, he's been doing better, and is currently on pressure support of 8 CPAP of 5. His blood gases this morning showed a pO2 of 96, pCO2 of 32, and pH 7.51. He is currently on Precedex at 0.4 mcg/kg/h, saline at 20 mL an hour, and vital AF 1.2 at 60 mL now which is goal. He remains on Zosyn and Eliquis. When not on pressure support, he is on the volume assist control, rate 24, tidal volume 450, FiO2 35%, and PEEP of 5. This morning, white count 8.9, hemoglobin 8.8, hematocrit 28.5, and platelet count 382,000. Chest x-ray continues to show diffuse bilateral airspace disease consistent with coronavirus associated pneumonia. Progress note dated 09/03/2021. 31-year-old black male, last seen by me in August 18. The patient was actually admitted to the hospital way back on July 31, for coronavirus associated pneumonia. The patient was intubated for respiratory failure on August 06, and underwent tracheostomy and attempted PEG tube placement on August 14. More recently, the patient has been doing much better, and has been transitioned to pressure support. He's been on pressure support since yesterday, with a setting of 8 cm water pressure support, and CPAP of 5 cm water. Arterial blood gases show pO2 of 71, pCO2 42, and a pH is 7.52. The patient is receiving vital AF at 60 mL an hour, which is goal, saline at 20 mL an hour, and Precedex at 0.4 mcg/kg per hour. White count 10, hemoglobin 8.9, hematocrit 29.2, platelet count 381,000. Sodium 138, potassium 3.6, chlorides 100, CO2 32, anion gap 6, BUN 28, creatinine 0.78. Chest x-ray shows diffuse bilateral infiltrates, and is essentially unchanged. Objective - Vital Signs Vital signs: Vital Signs Temp 99 F 09/03/21 08:00 Pulse 87 09/03/21 09:00 Resp 28 H 09/03/21 09:00 BP 132/82 09/03/21 09:00 Pulse Ox 98 09/03/21 09:00 Intake & Output 09/02/21 09/03/21 09/03/21 18:59 06:59 18:59 Intake Total 678.072 3067 73.469 Output Total 2340 440 Balance -1655.376 630 73.469 Weight 109.1 kg 106.7 kg Intake: IV 260 220 Sodium Chloride 0.9% 1, 260 220 000 ml @ 20 mls/hr IV . Q24H [facility] Rx#:[id number] Intake, IV Titration 184.624 100 73.469 Amount Dexmedetomidine/0.9% NaCl 184.624 100 73.469 (Pmx) 400 mcg In Empty Bag 1 bag @ 0.2 MCG/KG/HR 5.71 mls/hr IV .[id number] [facility]ARG[facility] Rx#:[id number] Tube Feeding 240 660 Other 90 Output: Urine 2340 440 Other: Voiding Method External Catheter Indwelling Catheter # Bowel Movements 1 1 ABP, PAP, CO, CI - Last Documented Arterial Blood Pressure 120/59 - Exam No acute distress, awake and alert, with a midline tracheostomy tube in place. HEENT examination is grossly unremarkable. Neck supple. Full range of motion. No adenopathy thyromegaly or neck vein distention. Cardiovascular examination reveals regular rhythm rate. S1-S2 normal. No S3 or S4. No discernible murmur noted. Heart sounds are distant. Heart rate 87 bpm. Lungs reveal coarse bilateral rhonchi. Breath sounds equal bilaterally. No wheezes or crackles. Saturations are 98% on an FiO2 of 45%. Abdomen soft bowel sounds are heard. No masses or tenderness. Extremities are intact. No cyanosis clubbing or edema. Skin is without rash or lesion. Neurologic examination other than weakness of the extremities, appears to be relatively normal. - Labs CBC & Chem 7: 09/03/21 04:30 09/03/21 04:30 Labs: Abnormal Lab Results - Last 24 Hours (Table) 09/02/21 09/02/21 09/02/21 Range/Units 09:24 11:14 18:13 RBC (4.30-5.90) m/uL Hgb (13.0-17.5) gm/dL Hct (39.0-53.0) % MCHC (31.0-37.0) g/dL RDW (11.5-15.5) % ABG pH (7.35-7.45) ABG pO2 (83-108) mmHg ABG HCO3 (21-25) mmol/L ABG Total CO2 (19-24) mmol/L Potassium 3.3 L (3.5-5.1) mmol/L Carbon Dioxide (22-30) mmol/L BUN 25 H (9-20) mg/dL Glucose 118 H (74-99) mg/dL POC Glucose (mg/dL) 116 H 102 H (75-99) mg/dL 09/02/21 09/03/21 09/03/21 Range/Units 23:48 04:30 04:30 RBC 3.12 L (4.30-5.90) m/uL Hgb 8.9 L (13.0-17.5) gm/dL Hct 29.2 L (39.0-53.0) % MCHC 30.4 L (31.0-37.0) g/dL RDW 18.2 H (11.5-15.5) % ABG pH (7.35-7.45) ABG pO2 (83-108) mmHg ABG HCO3 (21-25) mmol/L ABG Total CO2 (19-24) mmol/L Potassium (3.5-5.1) mmol/L Carbon Dioxide 32 H (22-30) mmol/L BUN 28 H (9-20) mg/dL Glucose 102 H (74-99) mg/dL POC Glucose (mg/dL) 109 H (75-99) mg/dL 09/03/21 09/03/21 Range/Units 05:17 05:59 RBC (4.30-5.90) m/uL Hgb (13.0-17.5) gm/dL Hct (39.0-53.0) % MCHC (31.0-37.0) g/dL RDW (11.5-15.5) % ABG pH 7.52 H (7.35-7.45) ABG pO2 71 L (83-108) mmHg ABG HCO3 34 H (21-25) mmol/L ABG Total CO2 35 H (19-24) mmol/L Potassium (3.5-5.1) mmol/L Carbon Dioxide (22-30) mmol/L BUN (9-20) mg/dL Glucose (74-99) mg/dL POC Glucose (mg/dL) 107 H (75-99) mg/dL Assessment and Plan Assessment: Acute hypoxemic respiratory failure secondary to coronavirus associated pneumonia, status post intubation and mechanical ventilation on August 06. Status post tracheostomy tube insertion, 08/14/2021. Unfortunately, PEG tube could not be placed on that same day. Acute respiratory distress syndrome, secondary to coronavirus infection. Elevated inflammatory marker secondary to coronavirus infection. Acute/subacute pulmonary embolism. Elevated liver enzymes secondary to coronavirus infection. Morbid obesity. Benign essential hypertension. Acute kidney injury, recovered. Critical illness polyneuropathy/myopathy. Plan: Plan dated 08/12/2021. We'll attempt to get the patient off of the paralytic if possible. I gave instructions to the nurse. In addition, we will continue with the propofol and the fentanyl for now. We'll reduce the FiO2 down from 60%, down to 50%. I told the nurses and respiratory therapist except saturations in the mid 80s or higher. The patient will continue on heparin for now. Additional recommendations and suggestions are forthcoming. Prognosis is guarded. We will continue to follow this patient, and make recommendations where appropriate. Plan dated 08/13/2021. We're unable to get the patient off the paralytic. During his bath, his saturations dropped and his blood pressure went up. The nurses contacted me. I ordered the FiO2 to be increased to 100%, and also use labetalol IV for blood pressure control. At that point, he was on maximal dose Cleveprex. He is scheduled for a tracheostomy and PEG tube tomorrow. I think that's espinoza. We will repeat a blood gas and a few minutes. His FiO2 is been weaned down to 75%. Additional recommendations and suggestions are forthcoming. His medications are reviewed. He remains on Zosyn and Levaquin. Microbiology is as far all negative. Plan dated 08/14/2021. The patient's going to have a tracheostomy and PEG tube placed today by surgery. I think that will give him the best chance of full recovery. The patient's FiO2 was increased from 40%, up to 55%, when I was alerted about the morning blood gases. Patient remains on fentanyl, propofol, and Nimbex. We will resume tube feedings after 24 hours post placement of the feeding tube. Labs, x-rays, and medications all reviewed. Everything is appropriate at this time. The patient remains on antibiotics in the form of Zosyn and Levaquin. Microbiology thus far as all been negative. We will continue to follow make recommendations where appropriate. Prognosis is guarded. Plan dated 08/15/2021. The patient did have his tracheostomy tube placed on August 14. Unfortunately, the PEG tube was not able to be place. The patient will be started back on heparin. The nurses will attempt to place an NG tube. The patient remains on propofol, Nimbex, and fentanyl. We will restart tube feeds once the NG tube was replaced. Overall prognosis remains very guarded. Labs, x-rays, and medications are all reviewed. Everything does seem to be appropriate. We will continue to follow this patient, and make recommendations where appropriate. The patient remains on Zosyn and Levaquin, and all microbiologic studies as far have been negative. Plan dated 08/16/2021. The patient is doing about the same. The goal today would be to try to get him off the paralytic. The patient's labs, x-rays, and medications are all reviewed. Everything is appropriate. We will continue to follow closely and make every attempt the patient moving in the right direction and eventually off the ventilator. The patient remains on Zosyn and Levaquin. Microbiologic studies have been negative. Additional recommendations and suggestions are forthcoming. We will continue to follow this patient and make recommendations where appropriate. Plan dated 08/17/2021. Currently, the patient appears to be reasonably stable. We will drop the PEEP from 20 down to 15 cm water. Blood gases this morning were excellent. The patient did receive blood, platelets, and protamine. Because of bleeding around the tracheostomy site. Remains on fentanyl, propofol and Nimbex. He is getting nourished at goal. Yesterday, we attempted to stop the Nimbex, but we had to restart it because became very tachypnea. Additional recommendations and suggestions are forthcoming. Prognosis is guarded. The patient is very critically ill. Plan dated 08/18/2021. Currently, the blood pressures much better controlled on labetalol. In addition, yesterday, the PEEP was dropped from 20 cm of water to 15 cm water. The patient remains on appropriate medications and sedatives. The patient was not able to tolerate a holiday from the Nimbex. The patient continues on tube feeds. Additional recommendations and suggestions are forthcoming. We will continue to follow make recommendations were appropriate. Prognosis is guarded. This patient is very critically ill. Plan dated 09/02/2021. The patient appears to be moving in the proper direction. He is awake and alert. He does have diffuse muscle weakness. The patient is currently on pressure support of a CPAP of 5 and 35%. Arterial blood gases are adequate. We will continue to follow. The patient currently is on a saline drip at 20 mL an hour, Precedex, and tube feeds at goal. Prognosis is still guarded. We will continue to follow make recommendations where appropriate. Plan dated 09/03/2021. Currently, the patient is doing very well. The patient remains on pressor support and CPAP. Later today, the patient will be transitioned to trach collar. The patient is still very weak and likely suffers some critical illness polyneuropathy. Labs, x-rays, medications are all reviewed. Clinically, the patient's very awake and alert. We will continue to follow, and make recommendations where appropriate. We will attempt to wean the patient off the Precedex today. Time with Patient: Greater than 30
[2021-09-03 12:23] LABS: Glucose,Whole Blood 100 mg/dL (75-99)
--- NOTE | 2021-09-03 13:58 | P.PN ---
Subjective Progress Note Date: 09/02/21 Principal diagnosis: Acute hypoxemic respiratory failure secondary to Covid pneumonia This is a pleasant 31 years old -[place] man with no significant past medical history presents with dyspnea which started yesterday associated with fever and coughing. Patient tested positive for covid earlier on Thursday after he felt with fever and cough on Thursday but at that time he was not dyspneic. He denies chest pain or abdominal pain but he has diarrhea on and off. No vomi ting. He is saturating 89% on 6 L oxygen via nasal cannula, afebrile. Tachypneic with a breathing rate at 23. CBC, is unremarkable. INR is normal at 1.0. Sodium is 1:30, creatinine normal at 1.1, glucose 103. AST is mildly elevated 106 and ALT mildly elevated 106. Elevated lactate dehydrogenase 2600 and C-reactive protein 20.3. Cholelithiasis positive EKG shows sinus tachycardia and [address]-T changes Chest x-ray showing bilateral infiltrates 08/01/2021 Patient sitting at bedside using 50 L of oxygen via nonrebreather. Reports slight improvement in his breathing and his chest x-ray showing somewhat improvement in that area should on both sides. He has low-grade fever today at 200. Blood pressure is stable. D-dimer is 1.87. BMP is unremarkable, liver enzymes slightly trending down. LDH slightly down at 2437 and slightly decreased and C-reactive protein 16.7. C BC and pro-calcitonin are pending Sputum and blood culture are still pending He remains on multiple vitamins, Baricitinib, dexamethasone and normal saline at 75 mL/h. Also he is on Lovenox. Norvasc is added for blood pressure control also we will add metoprolol Subjective: 08/05/21 patient still with dyspnea requiring BiPAP most of the time. He is developing fever of 101.7 today. Blood pressure 157/91. He has leukocytosis 19.1.liver enzymes Are the same. LDH elevated 2935 and C- reactive protein 18.2 his still on multiple vitamins, Baricitinib, dexamethasone and normal saline at 50 mL/h. Also he is on Lovenox therapeutic dose after his d-dimer yesterday. 08/06/2021 Patient remains on BiPAP needing higher pressures 14/8 and FiO2 of 100%. Also history of chronic fever around 100 and pro-calcitonin elevated at 0.40. This left leukocytosis around 22, LDH and C-reactive protein still elevated. D- dimer is trending down to 8.5 and CTA of the chest today showing negative for PE but bilateral groundglass opacity. Sputum culture 2 is negative. Urine analysis is negative for infection Today patient SWITCHED to heparin drip. Also he was started on Zosyn. Also dexamethasone 6 mg daily and normal saline at 50 mL per hour. Discontinue Baricitinib per pulmonary 08/07/2021 Patient respiratory status got worse and eventually patient got intubated while he is in the ICU. Pulmonary/critical care team following the patient closely and help with vent management. He has a fever of 100. Breathing rate around 29. Blood pressure is stable. WBC down to 19 K, Patient is acidotic with pH of 7.2, pCO2 of 57 which is low and high pO2 of 99. Chest x-ray showed increasing bilateral infiltrate and left lower lobe pneumonia. Repeat sputum culture is pending. First 2 samples were negative He remains on Zosyn, dexamethasone, normal saline at 50 mL per hour , heparin drip, multiple vitamins 08/08/2021 Patient remains in the ICU in critical condition and generally he is not doing well. I'll intubated and on mechanical ventilation with the pulmonary/critical care team R following closely He is hemodynamically stable, mildly tachycardic. WBC improving down to 15 but also hemoglobin dropped to 11.9 down to 9.8. And while he continued on heparin drip for suspected thrombosis secondary to his Covid infection and high d-dimer will increase his for chronic 40 mg daily and to twice a day. Patient FiO2 was lowered to 70%, he did not tolerate the prone position. He has no fever but tachypneic at 38 Today his creatinine went up 1.0 up to 2.8 with mild hyperkalemia however he is making good urine output with yellow urine in his Lees catheter bag nephrology team were consulted and bicarb drip was started for acidosis with pH of 7.22. He remains on Zosyn, dexamethasone, vitamin C, D and zinc. 08/09/2021 Remains in the ICU in critical condition. He continue on mechanical ventilation with pulmonary/critical care team on the consult. He still significantly tachypneic at 38 and leukocytosis. Possibly just at that time level 18 to 20, prone position was tried but patient could not tolerate it so avoided now. Labs showing improvement leukocytosis 12 K, hemoglobin 9.2, FiO2 lower to 55%. Creatinine improved slightly to 2.2 after starting normal saline at 75 mL/h. Chest x-ray showing the same findings of bilateral pneumonia. Dexamethasone was increased to twice daily today, normal saline 75 mL/h started. Well continued on heparin drip, Zosyn and multiple vitamins 08/10/2021 Patient condition did not change much from yesterday. He remains intubation only FiO2 lower to 55 from 70% and PEEP down to 18. With pulmonary/critical care team following the case closely. This remains tachycardia. No need for pressors. He hasn't been fever for the last 48 hours. D-dimer trending down to 1.7. WBC down to 11.8. Hemoglobin down to 8.9. Inflammatory markers improved to 114 and 19.9.. Creatinine is stable from yesterday at 2.2. Chest x-ray showing similar infiltrate both sides more on the left side. He remains on Zosyn, multiple vitamins, dexamethasone, normal saline, heparin drip. 08/11/2021 Patient remains in the ICU in critical condition. He is currently on mechanical ventilation significantly tachypneic around 38. With the floor at about 60 L/m. He is FiO2 of 60% and PEEP of 20. With pulmonary/critical care team opened and vent management. Labs showing WBC 12.6, hemoglobin slightly trending to 7.8. Lactate dehydrogenase 1245 and C-reactive protein down to 13.6. Creatinine is 2.0 Is on Zosyn, dexamethasone, normal sinus 75, heparin drip. 08/12/2021 Patient is currently in the intensive care unit. Remains on mechanical ventilator due to acute hypoxemic respiratory failure with Covid pneumonia Currently on before meals 375, FiO2 60% and PEEP of 20. Patient is on Nimbex drip and heparin subcu. Patient is also on fentanyl. Laboratory data showed WBC 15 hemoglobin 7.8 hematocrit 26.1 and platelets 433 And d-dimer is 1.68 sodium 140 potassium 5.3 chloride 101 bicarb is 25 BUN 16 creatinine 1.73. The LDH 1160. Chest x-ray showed findings similar to prior exam. Correlate for pneumonia, edema, ARDS. 08/13/2021 Patient is currently in the intensive care unit. Remains on mechanical ventilator. Assist control 375 and FiO2 at 50% and PEEP of 20. Currently being continued on Nimbex and fentanyl drip. Patient is being converted on IV heparin due to pulmonary embolism. Patient is being controlled on antibiotic Levaquin and Zosyn. Patient is scheduled for vacation and PEG tube placement tomorrow. Laboratory data showed WBC 30.0, hemoglobin 9.5 platelets 634 D-dimer 2.68, sodium 140 potassium 5.6 chloride 108 BUN 51 and creatinine 1.61, AST 75 ALT 193 Patient is being continued on dexamethasone 6 mg IV twice a day. Pulmonary and nephrology and general surgery is on board. 08/14/2021 Patient is currently in the MICU on mechanical ventilator. His control with tidal volume 375, FiO2 55%, PEEP of 20. Patient is on Nimbex drip and propofol and fentanyl drip as well as heparin drip due to pulmonary embolism. Patient is scheduled for tracheostomy and PEG tube placement. Remains on antibiotics in the form of Levaquin and Zosyn. Laboratory data showed WBC 17.5 hemoglobin 7.7 and platelets 462 Sodium 139 potassium 5.2 chloride 108 BUN 51 and creatinine 1.77 Albumin 2.7 and total protein 5.5. Tube feedings on hold for scheduled surgical procedure. Pulmonary, nephrology and general surgery is on board. 08/15/2021 Patient is currently in the MICU. Patient had tracheostomy and is currently remains mechanical ventilator. FiO2 55% and PEEP of 20. Patient is also on propofol, Nimbex and fentanyl drip. Also on heparin IV due to pulmonary embolism. NG tube was taken out prior to tracheostomy. Laboratory data showed WBC 15.6 hemoglobin 7.4 platelets 404 and D-dimer 3.76 Sodium 137 potassium 4.9 chloride 105 bicarb is 25 BUN 49 and creatinine 1.59 Repeat chest x-ray today showed diffuse bilateral infiltrates. Patient remains dexamethasone, antibiotics no cough Levaquin and Zosyn. Pulmonary and nephrology and general surgery is on board. 08/26/2021 Patient was admitted to the hospital due to COVID-19 pneumonia and acute hypoxic respiratory failure. Patient was also found have acute PE. Currently patient is status post tracheostomy and remains on mechanical ventilator. Patient is in the MICU currently. on pressure control 12 and FiO2 40% and PEEP of 10. Patient is awake alert and able to follow simple commands. Patient did have T- max 101 last night. Sputum cultures were sent. Chest x-ray showed stable chest. Patient is being continued on Lasix 40 mg IV daily, ascorbic acid, vitamin D3 and anticoagulation the form of Eliquis. Heart rate is controlled with metoprolol. Pulmonary and nephrology and surgery is on board. Patient is tolerating tube feeding. 08/27/2021 Patient eventually MICU. On mechanical ventilator via trach. Patient is tolerating pressure support. Chest x-ray showed bilateral infiltrates. Patient is being continued on Precedex and not on any sedation. Patient does respond to verbal stimuli and able to open his eyes and follow simple commands. on NG tube feeding. Patient is being continued on anticoagulation with Eliquis for pulmonary embolism. Not on pressor support. Laboratory data showed WBC 4.1 hemoglobin 8.1 and platelets 198 and BUN 27 creatinine 0.81 PT OT is following. 08/28/2021 Patient remains in the MICU. Currently on mechanical ventilator via trach tube. Tolerating NG tube feeding. Awake alert and able to follow simple commands. Tracheostomy tube was adjusted by pulmonary team. Patient was changed to assist control with tidal volume 450, FiO2 at 50% and PEEP of 12. Chest x-ray showed bilateral infiltrates not much change from yesterday. Patient has been afebrile. PT OT is following. Lab data showed WBC 5.6 hemoglobin 9.4 and platelets 279 BUN 23 and creatinine 0.72 bicarb 29 potassium 3.9 and albumin 3.0 08/29/2021 Patient is in the MICU. On mechanical ventilator. Awake alert and follows simple commands. Assist control with tidal volume 450, FiO2 45% and PEEP of 12. Patient underwent tracheostomy change yesterday by general surgery. Current tube feeding. Patient is off Nimbex and propofol and fentanyl is being tapered off. Patient has been very weak and possible critical care illness only neuromyopathy is being considered. Laboratory data showed WBC 6.1 hemoglobin 9.9 platelets 311 Sodium 134 potassium 3.8 chloride 98 BUN 22 and creatinine 0.85 and albumin 2.9 Pulmonary and general surgery is on board. 08/30/2021 Patient is currently in the MICU. Requiring mechanical ventilator via trach tube. On assist control with tidal volume 450, FiO2 45% and PEEP of 8. Patient is on Precedex. Tolerating oral diet via NG tube. Chest x-ray today showed worsening bilateral lung infiltrates. Lines and cathet ers in place. Laboratory data showed WBC 8.1 hemoglobin 9.9 and platelets 331 Sodium 138 potassium 3.8 chloride 99 bicarb 28 BUN 24 and creatinine 0.87 and albumin 3.1 Patient is being continued on Eliquis 5 mg twice daily and also on IV Lasix 40 mg daily and an antibiotic the form of Zosyn emperically. 09 02 21 Patient is currently in the MICU. Resting in the bed. Able to open his eyes with verbal stimuli and follows simple commands. Patient has been afebrile. No complaints of chest pain. Currently on trach with pressure support. Patient is also on Precedex. Usually gets very anxious. Continued on anticoagulation with Eliquis, multivitamins and also on Lasix 40 mg IV daily Chest x-ray showed findings similar. correlate with pneumonia/ARDS. Next and laboratory data showed WBC 8.9 hemoglobin 8.8 and platelets 382 Potassium 3.3 which is being replaced. Patient is on NG tube feeding. Tolerating well. Called insurance company regarding peer to peer for transfer to long-term acute care facility, Which is scheduled around 2 PM tomorrow. Current medications reviewed. Objective - Vital Signs Vital signs: Vital Signs Temp 100.1 F H 09/02/21 16:00 Pulse 83 09/02/21 19:00 Resp 28 H 09/02/21 19:00 BP 134/84 09/02/21 19:00 Pulse Ox 98 09/02/21 20:00 Intake & Output 09/02/21 09/02/21 09/03/21 06:59 18:59 06:59 Intake Total 1182.121 684.624 Output Total 505 2340 Balance 677.121 -1655.376 Weight 109.1 kg 109.1 kg Intake: IV 220 260 Piperacillin-Tazobactam 3 100 .375 gm In Sodium Chloride 0.9% 100 ml @ 25 mls/hr IVPB Q8HR [facility] Rx# :[id number] Sodium Chloride 0.9% 1, 120 260 000 ml @ 20 mls/hr IV . Q24H [facility] Rx#:[id number] Intake, IV Titration 92.121 184.624 Amount Dexmedetomidine/0.9% NaCl 92.121 184.624 (Pmx) 400 mcg In Empty Bag 1 bag @ 0.2 MCG/KG/HR 5.71 mls/hr IV .[id number] [facility] Rx#:[id number] Tube Feeding 780 240 Other 90 Output: Urine 505 2340 Other: Voiding Method Indwelling Catheter External Catheter # Bowel Movements 1 ABP, PAP, CO, CI - Last Documented Arterial Blood Pressure 120/59 - Exam - Exam -GENERAL: The patient with tracheostomy and on pressure support. Awake alert and oriented. Follows simple commands. HEENT: Pupils are round and equally reacting to light. EOMI. No scleral icterus. No conjunctival pallor. Normocephalic, atraumatic. No pharyngeal erythema. No thyromegaly. CARDIOVASCULAR: S1 and S2 present. No murmurs, rubs, or gallops. -PULMONARY: Chest is clear to auscultation, no wheezing, tachypnea ABDOMEN: Soft, nontender, nondistended, normoactive bowel sounds. No palpable organomegaly. Bilateral coarse breath sounds. Tracheostomy in place. EXTREMITIES: No cyanosis, clubbing, or pedal edema. NEUROLOGICAL: Gross neurological examination did not reveal any focal deficits. SKIN: No rashes. No petechiae - Labs CBC & Chem 7: 09/03/21 04:30 09/03/21 10:12 Labs: Abnormal Lab Results - Last 24 Hours (Table) 09/02/21 09/02/21 09/02/21 Range/Units 00:11 05:50 05:58 RBC (4.30-5.90) m/uL Hgb (13.0-17.5) gm/dL Hct (39.0-53.0) % MCHC (31.0-37.0) g/dL RDW (11.5-15.5) % ABG pH 7.51 H (7.35-7.45) ABG HCO3 33 H (21-25) mmol/L ABG Total CO2 35 H (19-24) mmol/L ABG O2 Saturation 99.0 H (94-97) % Potassium (3.5-5.1) mmol/L BUN (9-20) mg/dL Glucose (74-99) mg/dL POC Glucose (mg/dL) 122 H 105 H (75-99) mg/dL 09/02/21 09/02/21 09/02/21 Range/Units 09:24 09:28 11:14 RBC 3.02 L (4.30-5.90) m/uL Hgb 8.8 L (13.0-17.5) gm/dL Hct 28.5 L (39.0-53.0) % MCHC 30.9 L (31.0-37.0) g/dL RDW 18.3 H (11.5-15.5) % ABG pH (7.35-7.45) ABG HCO3 (21-25) mmol/L ABG Total CO2 (19-24) mmol/L ABG O2 Saturation (94-97) % Potassium 3.3 L (3.5-5.1) mmol/L BUN 25 H (9-20) mg/dL Glucose 118 H (74-99) mg/dL POC Glucose (mg/dL) 116 H (75-99) mg/dL 09/02/21 Range/Units 18:13 RBC (4.30-5.90) m/uL Hgb (13.0-17.5) gm/dL Hct (39.0-53.0) % MCHC (31.0-37.0) g/dL RDW (11.5-15.5) % ABG pH (7.35-7.45) ABG HCO3 (21-25) mmol/L ABG Total CO2 (19-24) mmol/L ABG O2 Saturation (94-97) % Potassium (3.5-5.1) mmol/L BUN (9-20) mg/dL Glucose (74-99) mg/dL POC Glucose (mg/dL) 102 H (75-99) mg/dL Assessment and Plan Assessment: Acute bilateral Covid pneumonia, suspected bacterial superinfection mainly in the left lower lobe. Completed antibiotic course Zosyn. Acute hypoxic respiratory failure, remains on mechanical ventilation. s/p traheostomy ARDS secondary to COOVID Pneumonia Critical illness polyneuromyopathy Right lung PE was on IV heparin. changed to Eliquis Elevated inflammatory markers Acute kidney injury secondary to ATN with Covid pneumonia. Resolved. Hypertension Hyperkalemia secondary to acute kidney injury. improved. Anemia Metabolic acidosis. improved. Elevated d-dimer Morbid Obesity with BMI of 49.8 Plan: This is a pleasant 31 years old male who presents with bilateral Covid pneumonia and hypoxic respiratory failure. Patient was on mechanical ventilator..s/p traheostomy. Tracheostomy was exchanged on 08/28. Currently transitioned to pressure support. Completed dexamethasone course . Continue with vitamin C, vitamin D and zinc. Discontinue Baricitinib . Completed antibiotic course with Zosyn and Levaquin. Was on heparin drip for acute PE. Changed to eliquis. Continued on normal saline KVO. Patient is status post tracheostomy. Tolerating tube feeding NG tube. Pulmonary and Gen surgery is on board. Labs and medication were reviewed. Monitor lytes and vitals. DVT and GI prophylaxis. PT/OT is following. DVT prophylaxis: Eliquis GI Prophylaxis: Protonix Time with Patient: Greater than 30
--- NOTE | 2021-09-03 14:20 | P.PN ---
Subjective Progress Note Date: 09/03/21 CHIEF COMPLAINT: COVID-19 pneumonia HISTORY OF PRESENT ILLNESS: Patient remains in the ICU on mechanical ventilation. Patient is currently trach collaring. They're looking at transferring patient to select specialty. Afebrile. PHYSICAL EXAM: VITAL SIGNS: Reviewed. GENERAL: Well-developed in no acute distress. HEENT: No sclera icterus. Extraocular movements grossly intact. Moist buccal mucosa. Head is atraumatic, normocephalic. Tracheostomy site clean dry and intact ABDOMEN: Soft NEUROLOGIC: Awake ASSESSMENT: 1. Acute hypoxic respiratory failure due to COVID-19 pneumonia with prolonged mechanical intubation. Status post tracheostomy placement and revision 2. Severe protein calorie malnutrition PLAN: -Continue ICU management -Continue supportive care -Continue weaning trials -If patient continues to tolerate trach collaring, then we'll proceed with swallow evaluation with speech therapy and possible initiation of diet Physician Fishing Worker note has been reviewed by physician. Signing provider agrees with the documented findings, assessment, and plan of care. Objective - Vital Signs Vital signs: Vital Signs Temp 98.8 F 09/03/21 12:00 Pulse 100 09/03/21 13:00 Resp 33 H 09/03/21 13:00 BP 115/74 09/03/21 13:00 Pulse Ox 95 09/03/21 13:00 Intake & Output 09/02/21 09/03/21 09/03/21 18:59 06:59 18:59 Intake Total 178.660 5197 333.469 Output Total 2340 440 1965 Balance -1655.376 630 -1631.531 Weight 109.1 kg 106.7 kg Intake: IV 260 220 140 Sodium Chloride 0.9% 1, 260 220 140 000 ml @ 20 mls/hr IV . Q24H [facility] Rx#:[id number] Intake, IV Titration 184.624 100 73.469 Amount Dexmedetomidine/0.9% NaCl 184.624 100 73.469 (Pmx) 400 mcg In Empty Bag 1 bag @ 0.2 MCG/KG/HR 5.71 mls/hr IV .[id number] [facility] Rx#:[id number] Tube Feeding 240 660 120 Other 90 Output: Urine 2340 440 1965 Other: Voiding Method External Catheter Indwelling Catheter Indwelling Catheter # Bowel Movements 1 1 ABP, PAP, CO, CI - Last Documented Arterial Blood Pressure 120/59 - Labs CBC & Chem 7: 09/03/21 04:30 09/03/21 10:12 Labs: Abnormal Lab Results - Last 24 Hours (Table) 09/02/21 09/02/21 09/03/21 Range/Units 18:13 23:48 04:30 RBC 3.12 L (4.30-5.90) m/uL Hgb 8.9 L (13.0-17.5) gm/dL Hct 29.2 L (39.0-53.0) % MCHC 30.4 L (31.0-37.0) g/dL RDW 18.2 H (11.5-15.5) % ABG pH (7.35-7.45) ABG pO2 (83-108) mmHg ABG HCO3 (21-25) mmol/L ABG Total CO2 (19-24) mmol/L Carbon Dioxide (22-30) mmol/L BUN (9-20) mg/dL Glucose (74-99) mg/dL POC Glucose (mg/dL) 102 H 109 H (75-99) mg/dL 09/03/21 09/03/21 09/03/21 Range/Units 04:30 05:17 05:59 RBC (4.30-5.90) m/uL Hgb (13.0-17.5) gm/dL Hct (39.0-53.0) % MCHC (31.0-37.0) g/dL RDW (11.5-15.5) % ABG pH 7.52 H (7.35-7.45) ABG pO2 71 L (83-108) mmHg ABG HCO3 34 H (21-25) mmol/L ABG Total CO2 35 H (19-24) mmol/L Carbon Dioxide 32 H (22-30) mmol/L BUN 28 H (9-20) mg/dL Glucose 102 H (74-99) mg/dL POC Glucose (mg/dL) 107 H (75-99) mg/dL 09/03/21 Range/Units 12:21 RBC (4.30-5.90) m/uL Hgb (13.0-17.5) gm/dL Hct (39.0-53.0) % MCHC (31.0-37.0) g/dL RDW (11.5-15.5) % ABG pH (7.35-7.45) ABG pO2 (83-108) mmHg ABG HCO3 (21-25) mmol/L ABG Total CO2 (19-24) mmol/L Carbon Dioxide (22-30) mmol/L BUN (9-20) mg/dL Glucose (74-99) mg/dL POC Glucose (mg/dL) 100 H (75-99) mg/dL
[2021-09-03] MEDS: SODIUM CHLORIDE 0.9% 1,000 ML IV SCH (17:02)
[2021-09-03 18:04] LABS: Glucose,Whole Blood 129 mg/dL (75-99)
--- NOTE | 2021-09-03 20:46 | P.PN ---
Subjective Progress Note Date: 09/03/21 Principal diagnosis: Acute hypoxemic respiratory failure secondary to Covid pneumonia This is a pleasant 31 years old -[place] man with no significant past medical history presents with dyspnea which started yesterday associated with fever and coughing. Patient tested positive for covid earlier on Thursday after he felt with fever and cough on Thursday but at that time he was not dyspneic. He denies chest pain or abdominal pain but he has diarrhea on and off. No vomi ting. He is saturating 89% on 6 L oxygen via nasal cannula, afebrile. Tachypneic with a breathing rate at 23. CBC, is unremarkable. INR is normal at 1.0. Sodium is 1:30, creatinine normal at 1.1, glucose 103. AST is mildly elevated 106 and ALT mildly elevated 106. Elevated lactate dehydrogenase 2600 and C-reactive protein 20.3. Cholelithiasis positive EKG shows sinus tachycardia and [address]-T changes Chest x-ray showing bilateral infiltrates 08/01/2021 Patient sitting at bedside using 50 L of oxygen via nonrebreather. Reports slight improvement in his breathing and his chest x-ray showing somewhat improvement in that area should on both sides. He has low-grade fever today at 200. Blood pressure is stable. D-dimer is 1.87. BMP is unremarkable, liver enzymes slightly trending down. LDH slightly down at 2437 and slightly decreased and C-reactive protein 16.7. C BC and pro-calcitonin are pending Sputum and blood culture are still pending He remains on multiple vitamins, Baricitinib, dexamethasone and normal saline at 75 mL/h. Also he is on Lovenox. Norvasc is added for blood pressure control also we will add metoprolol Subjective: 08/05/21 patient still with dyspnea requiring BiPAP most of the time. He is developing fever of 101.7 today. Blood pressure 157/91. He has leukocytosis 19.1.liver enzymes Are the same. LDH elevated 2935 and C- reactive protein 18.2 his still on multiple vitamins, Baricitinib, dexamethasone and normal saline at 50 mL/h. Also he is on Lovenox therapeutic dose after his d-dimer yesterday. 08/06/2021 Patient remains on BiPAP needing higher pressures 14/8 and FiO2 of 100%. Also history of chronic fever around 100 and pro-calcitonin elevated at 0.40. This left leukocytosis around 22, LDH and C-reactive protein still elevated. D- dimer is trending down to 8.5 and CTA of the chest today showing negative for PE but bilateral groundglass opacity. Sputum culture 2 is negative. Urine analysis is negative for infection Today patient SWITCHED to heparin drip. Also he was started on Zosyn. Also dexamethasone 6 mg daily and normal saline at 50 mL per hour. Discontinue Baricitinib per pulmonary 08/07/2021 Patient respiratory status got worse and eventually patient got intubated while he is in the ICU. Pulmonary/critical care team following the patient closely and help with vent management. He has a fever of 100. Breathing rate around 29. Blood pressure is stable. WBC down to 19 K, Patient is acidotic with pH of 7.2, pCO2 of 57 which is low and high pO2 of 99. Chest x-ray showed increasing bilateral infiltrate and left lower lobe pneumonia. Repeat sputum culture is pending. First 2 samples were negative He remains on Zosyn, dexamethasone, normal saline at 50 mL per hour , heparin drip, multiple vitamins 08/08/2021 Patient remains in the ICU in critical condition and generally he is not doing well. I'll intubated and on mechanical ventilation with the pulmonary/critical care team R following closely He is hemodynamically stable, mildly tachycardic. WBC improving down to 15 but also hemoglobin dropped to 11.9 down to 9.8. And while he continued on heparin drip for suspected thrombosis secondary to his Covid infection and high d-dimer will increase his for chronic 40 mg daily and to twice a day. Patient FiO2 was lowered to 70%, he did not tolerate the prone position. He has no fever but tachypneic at 38 Today his creatinine went up 1.0 up to 2.8 with mild hyperkalemia however he is making good urine output with yellow urine in his Lees catheter bag nephrology team were consulted and bicarb drip was started for acidosis with pH of 7.22. He remains on Zosyn, dexamethasone, vitamin C, D and zinc. 08/09/2021 Remains in the ICU in critical condition. He continue on mechanical ventilation with pulmonary/critical care team on the consult. He still significantly tachypneic at 38 and leukocytosis. Possibly just at that time level 18 to 20, prone position was tried but patient could not tolerate it so avoided now. Labs showing improvement leukocytosis 12 K, hemoglobin 9.2, FiO2 lower to 55%. Creatinine improved slightly to 2.2 after starting normal saline at 75 mL/h. Chest x-ray showing the same findings of bilateral pneumonia. Dexamethasone was increased to twice daily today, normal saline 75 mL/h started. Well continued on heparin drip, Zosyn and multiple vitamins 08/10/2021 Patient condition did not change much from yesterday. He remains intubation only FiO2 lower to 55 from 70% and PEEP down to 18. With pulmonary/critical care team following the case closely. This remains tachycardia. No need for pressors. He hasn't been fever for the last 48 hours. D-dimer trending down to 1.7. WBC down to 11.8. Hemoglobin down to 8.9. Inflammatory markers improved to 114 and 19.9.. Creatinine is stable from yesterday at 2.2. Chest x-ray showing similar infiltrate both sides more on the left side. He remains on Zosyn, multiple vitamins, dexamethasone, normal saline, heparin drip. 08/11/2021 Patient remains in the ICU in critical condition. He is currently on mechanical ventilation significantly tachypneic around 38. With the floor at about 60 L/m. He is FiO2 of 60% and PEEP of 20. With pulmonary/critical care team opened and vent management. Labs showing WBC 12.6, hemoglobin slightly trending to 7.8. Lactate dehydrogenase 1245 and C-reactive protein down to 13.6. Creatinine is 2.0 Is on Zosyn, dexamethasone, normal sinus 75, heparin drip. 08/12/2021 Patient is currently in the intensive care unit. Remains on mechanical ventilator due to acute hypoxemic respiratory failure with Covid pneumonia Currently on before meals 375, FiO2 60% and PEEP of 20. Patient is on Nimbex drip and heparin subcu. Patient is also on fentanyl. Laboratory data showed WBC 15 hemoglobin 7.8 hematocrit 26.1 and platelets 433 And d-dimer is 1.68 sodium 140 potassium 5.3 chloride 101 bicarb is 25 BUN 16 creatinine 1.73. The LDH 1160. Chest x-ray showed findings similar to prior exam. Correlate for pneumonia, edema, ARDS. 08/13/2021 Patient is currently in the intensive care unit. Remains on mechanical ventilator. Assist control 375 and FiO2 at 50% and PEEP of 20. Currently being continued on Nimbex and fentanyl drip. Patient is being converted on IV heparin due to pulmonary embolism. Patient is being controlled on antibiotic Levaquin and Zosyn. Patient is scheduled for vacation and PEG tube placement tomorrow. Laboratory data showed WBC 30.0, hemoglobin 9.5 platelets 634 D-dimer 2.68, sodium 140 potassium 5.6 chloride 108 BUN 51 and creatinine 1.61, AST 75 ALT 193 Patient is being continued on dexamethasone 6 mg IV twice a day. Pulmonary and nephrology and general surgery is on board. 08/14/2021 Patient is currently in the MICU on mechanical ventilator. His control with tidal volume 375, FiO2 55%, PEEP of 20. Patient is on Nimbex drip and propofol and fentanyl drip as well as heparin drip due to pulmonary embolism. Patient is scheduled for tracheostomy and PEG tube placement. Remains on antibiotics in the form of Levaquin and Zosyn. Laboratory data showed WBC 17.5 hemoglobin 7.7 and platelets 462 Sodium 139 potassium 5.2 chloride 108 BUN 51 and creatinine 1.77 Albumin 2.7 and total protein 5.5. Tube feedings on hold for scheduled surgical procedure. Pulmonary, nephrology and general surgery is on board. 08/15/2021 Patient is currently in the MICU. Patient had tracheostomy and is currently remains mechanical ventilator. FiO2 55% and PEEP of 20. Patient is also on propofol, Nimbex and fentanyl drip. Also on heparin IV due to pulmonary embolism. NG tube was taken out prior to tracheostomy. Laboratory data showed WBC 15.6 hemoglobin 7.4 platelets 404 and D-dimer 3.76 Sodium 137 potassium 4.9 chloride 105 bicarb is 25 BUN 49 and creatinine 1.59 Repeat chest x-ray today showed diffuse bilateral infiltrates. Patient remains dexamethasone, antibiotics no cough Levaquin and Zosyn. Pulmonary and nephrology and general surgery is on board. 08/26/2021 Patient was admitted to the hospital due to COVID-19 pneumonia and acute hypoxic respiratory failure. Patient was also found have acute PE. Currently patient is status post tracheostomy and remains on mechanical ventilator. Patient is in the MICU currently. on pressure control 12 and FiO2 40% and PEEP of 10. Patient is awake alert and able to follow simple commands. Patient did have T- max 101 last night. Sputum cultures were sent. Chest x-ray showed stable chest. Patient is being continued on Lasix 40 mg IV daily, ascorbic acid, vitamin D3 and anticoagulation the form of Eliquis. Heart rate is controlled with metoprolol. Pulmonary and nephrology and surgery is on board. Patient is tolerating tube feeding. 08/27/2021 Patient eventually MICU. On mechanical ventilator via trach. Patient is tolerating pressure support. Chest x-ray showed bilateral infiltrates. Patient is being continued on Precedex and not on any sedation. Patient does respond to verbal stimuli and able to open his eyes and follow simple commands. on NG tube feeding. Patient is being continued on anticoagulation with Eliquis for pulmonary embolism. Not on pressor support. Laboratory data showed WBC 4.1 hemoglobin 8.1 and platelets 198 and BUN 27 creatinine 0.81 PT OT is following. 08/28/2021 Patient remains in the MICU. Currently on mechanical ventilator via trach tube. Tolerating NG tube feeding. Awake alert and able to follow simple commands. Tracheostomy tube was adjusted by pulmonary team. Patient was changed to assist control with tidal volume 450, FiO2 at 50% and PEEP of 12. Chest x-ray showed bilateral infiltrates not much change from yesterday. Patient has been afebrile. PT OT is following. Lab data showed WBC 5.6 hemoglobin 9.4 and platelets 279 BUN 23 and creatinine 0.72 bicarb 29 potassium 3.9 and albumin 3.0 08/29/2021 Patient is in the MICU. On mechanical ventilator. Awake alert and follows simple commands. Assist control with tidal volume 450, FiO2 45% and PEEP of 12. Patient underwent tracheostomy change yesterday by general surgery. Current tube feeding. Patient is off Nimbex and propofol and fentanyl is being tapered off. Patient has been very weak and possible critical care illness only neuromyopathy is being considered. Laboratory data showed WBC 6.1 hemoglobin 9.9 platelets 311 Sodium 134 potassium 3.8 chloride 98 BUN 22 and creatinine 0.85 and albumin 2.9 Pulmonary and general surgery is on board. 08/30/2021 Patient is currently in the MICU. Requiring mechanical ventilator via trach tube. On assist control with tidal volume 450, FiO2 45% and PEEP of 8. Patient is on Precedex. Tolerating oral diet via NG tube. Chest x-ray today showed worsening bilateral lung infiltrates. Lines and cathet ers in place. Laboratory data showed WBC 8.1 hemoglobin 9.9 and platelets 331 Sodium 138 potassium 3.8 chloride 99 bicarb 28 BUN 24 and creatinine 0.87 and albumin 3.1 Patient is being continued on Eliquis 5 mg twice daily and also on IV Lasix 40 mg daily and an antibiotic the form of Zosyn emperically. 11 11 22 Patient is currently in the MICU. Resting in the bed. Able to open his eyes with verbal stimuli and follows simple commands. Patient has been afebrile. No complaints of chest pain. Currently on trach with pressure support. Patient is also on Precedex. Usually gets very anxious. Continued on anticoagulation with Eliquis, multivitamins and also on Lasix 40 mg IV daily Chest x-ray showed findings similar. correlate with pneumonia/ARDS. Next and laboratory data showed WBC 8.9 hemoglobin 8.8 and platelets 382 Potassium 3.3 which is being replaced. Patient is on NG tube feeding. Tolerating well. Called [facility] regarding peer to peer for transfer to long-term acute care facility, Which is scheduled around 2 PM tomorrow. 09-03 Patient is currently in the MICU. Admit to the hospital due to acute hypoxic respiratory failure secondary Covid pneumonia. Status post tracheostomy and status post mechanical ventilator.. Patient is awake alert and oriented and f ollows simple commands. Patient was on pressure support yesterday and was changed to trach collar. Denies any complaints of chest pain. Continues on tube feeding. Chest x-ray showed diffuse increased lung markings are nonspecific. Correlate for ARDS. Findings are worsening over the interval. Laboratory showed WBC 10.0 hemoglobin 8.9 and platelets 381 BUN 28 and creatinine 0.78 and calcium 8.9 Patient is being continued on Eliquis for pulmonary embolism. Continued on Precedex and IV Lasix 40 mg daily. Pulmonary and general surgery is on board. Discussed peer to peer with insurance [employer]. Patient is approved for long- term acute care facility transfer. Current medications reviewed. Objective - Vital Signs Vital signs: Vital Signs Temp 98.8 F 09/03/21 12:00 Pulse 100 09/03/21 13:00 Resp 33 H 09/03/21 13:00 BP 115/74 09/03/21 13:00 Pulse Ox 95 09/03/21 13:00 Intake & Output 09/02/21 09/03/21 09/03/21 18:59 06:59 18:59 Intake Total 317.432 3001 333.469 Output Total 2340 440 1965 Balance -1655.376 630 -1631.531 Weight 109.1 kg 106.7 kg Intake: IV 260 220 140 Sodium Chloride 0.9% 1, 260 220 140 000 ml @ 20 mls/hr IV . Q24H [facility]ARG[facility] Rx#:[id number] Intake, IV Titration 184.624 100 73.469 Amount Dexmedetomidine/0.9% NaCl 184.624 100 73.469 (Pmx) 400 mcg In Empty Bag 1 bag @ 0.2 MCG/KG/HR 5.71 mls/hr IV .[id number] [facility]ARG[facility] Rx#:[id number] Tube Feeding 240 660 120 Other 90 Output: Urine 2340 440 1965 Other: Voiding Method External Catheter Indwelling Catheter Indwelling Catheter # Bowel Movements 1 1 ABP, PAP, CO, CI - Last Documented Arterial Blood Pressure 120/59 - Exam - Exam -GENERAL: The patient with tracheostomy and on pressure support. Awake alert and oriented. Follows simple commands. HEENT: Pupils are round and equally reacting to light. EOMI. No scleral icterus. No conjunctival pallor. Normocephalic, atraumatic. No pharyngeal erythema. No thyromegaly. CARDIOVASCULAR: S1 and S2 present. No murmurs, rubs, or gallops. -PULMONARY: Chest is clear to auscultation, no wheezing, tachypnea ABDOMEN: Soft, nontender, nondistended, normoactive bowel sounds. No palpable organomegaly. Bilateral coarse breath sounds. Tracheostomy in place. EXTREMITIES: No cyanosis, clubbing, or pedal edema. NEUROLOGICAL: Gross neurological examination did not reveal any focal deficits. SKIN: No rashes. No petechiae - Labs CBC & Chem 7: 09/03/21 04:30 09/03/21 18:20 Labs: Abnormal Lab Results - Last 24 Hours (Table) 09/02/21 09/02/21 09/03/21 Range/Units 18:13 23:48 04:30 RBC 3.12 L (4.30-5.90) m/uL Hgb 8.9 L (13.0-17.5) gm/dL Hct 29.2 L (39.0-53.0) % MCHC 30.4 L (31.0-37.0) g/dL RDW 18.2 H (11.5-15.5) % ABG pH (7.35-7.45) ABG pO2 (83-108) mmHg ABG HCO3 (21-25) mmol/L ABG Total CO2 (19-24) mmol/L Carbon Dioxide (22-30) mmol/L BUN (9-20) mg/dL Glucose (74-99) mg/dL POC Glucose (mg/dL) 102 H 109 H (75-99) mg/dL 09/03/21 09/03/21 09/03/21 Range/Units 04:30 05:17 05:59 RBC (4.30-5.90) m/uL Hgb (13.0-17.5) gm/dL Hct (39.0-53.0) % MCHC (31.0-37.0) g/dL RDW (11.5-15.5) % ABG pH 7.52 H (7.35-7.45) ABG pO2 71 L (83-108) mmHg ABG HCO3 34 H (21-25) mmol/L ABG Total CO2 35 H (19-24) mmol/L Carbon Dioxide 32 H (22-30) mmol/L BUN 28 H (9-20) mg/dL Glucose 102 H (74-99) mg/dL POC Glucose (mg/dL) 107 H (75-99) mg/dL 09/03/21 Range/Units 12:21 RBC (4.30-5.90) m/uL Hgb (13.0-17.5) gm/dL Hct (39.0-53.0) % MCHC (31.0-37.0) g/dL RDW (11.5-15.5) % ABG pH (7.35-7.45) ABG pO2 (83-108) mmHg ABG HCO3 (21-25) mmol/L ABG Total CO2 (19-24) mmol/L Carbon Dioxide (22-30) mmol/L BUN (9-20) mg/dL Glucose (74-99) mg/dL POC Glucose (mg/dL) 100 H (75-99) mg/dL Assessment and Plan Assessment: Acute bilateral Covid pneumonia, suspected bacterial superinfection mainly in the left lower lobe. Completed antibiotic course Zosyn. Acute hypoxic respiratory failure, remains on mechanical ventilation. s/p traheostomy ARDS secondary to COOVID Pneumonia Critical illness polyneuromyopathy Right lung PE was on IV heparin. changed to Eliquis Elevated inflammatory markers Acute kidney injury secondary to ATN with Covid pneumonia. Resolved. Hypertension Hyperkalemia secondary to acute kidney injury. improved. Anemia Metabolic acidosis. improved. Elevated d-dimer Morbid Obesity with BMI of 49.8 Plan: This is a pleasant 31 years old male who presents with bilateral Covid pneumonia and hypoxic respiratory failure. Patient was on mechanical ventilator..s/p traheostomy. Tracheostomy was exchanged on 08/28. Currently transitioned to pressure support--> trach collar. Completed dexamethasone course . Continue with vitamin C, vitamin D and zinc. Discontinue Baricitinib . Completed antibiotic course with Zosyn and Levaquin. Was on heparin drip for acute PE. Changed to eliquis. Continued on normal saline KVO. Patient is status post tracheostomy. Tolerating tube feeding NG tube. Pulmonary and Gen surgery is on board. Labs and medication were reviewed. Monitor lytes and vitals. DVT and GI prophylaxis. PT/OT is following. DVT prophylaxis: Eliquis GI Prophylaxis: Protonix Time with Patient: Greater than 30
[2021-09-04 00:05] LABS: Glucose,Whole Blood 107 mg/dL (75-99)
[2021-09-04] MEDS: INSULIN ASPART (NovoLOG) 100 UNIT/ML VIAL SQ SCH ×3 (00:50→13:34)
[2021-09-04] MEDS: DEXMEDETOMIDINE/0.9% NACL(PMX) 400 MCG in EMPTY BAG 1 BAG IV SCH (05:49)
[2021-09-04 05:58] LABS: Anisocytosis Slight; HGB 9.4 gm/dL (13.0-17.5); Hypochromasia Marked; MCH 28.3 pg (25.0-35.0); MCHC 30.3 g/dL (31.0-37.0); MCV 93.4 fL (80.0-100.0); Mean Platelet Volume 10.2; Platelet Count 437 k/uL (150-450); RBC 3.32 m/uL (4.30-5.90); RDW 18.2 % (11.5-15.5); WBC 12.5 k/uL (3.8-10.6)
[2021-09-04 06:00] LABS: Glucose,Whole Blood 111 mg/dL (75-99)
[2021-09-04 06:23] LABS: African American GFR (CKD) >90 (>60 ml/min/1.73 sqM); Anion Gap 8 mmol/L; Blood Urea Nitrogen 27 mg/dL (9-20); Calcium 9.3 mg/dL (8.4-10.2); Carbon Dioxide 28 mmol/L (22-30); Chloride 104 mmol/L (98-107); Glucose 107 mg/dL (74-99); Non-African American GFR(CKD) >90 (>60 ml/min/1.73 sqM); Potassium 4.3 mmol/L (3.5-5.1); Sodium 140 mmol/L (137-145)
--- NOTE | 2021-09-04 08:35 | XR ---
EXAMINATION TYPE: XR chest 1V DATE OF EXAM: 09/04/2021 COMPARISON: 09/03/2021 HISTORY: 31-year-old male COVID pneumonia TECHNIQUE: Single frontal view of the chest is obtained. FINDINGS: Tracheostomy cannula is present. NG tube courses below the diaphragm. Heart is unenlarged. Peripheral consolidation, left greater than right upper to midlung. There may be slight improvement at the righ t midlung level. Other areas. More consolidated. IMPRESSION: Continued left greater than right peripheral airspace disease. There may be slight improvement in the right midlung but with greater consolidation in the other regions. Continued follow-up recommended.
[2021-09-04] MEDS: FUROSEMIDE 10 MG/ML 4 ML VIAL IV SCH (08:51)
[2021-09-04] MEDS: PANTOPRAZOLE 40 MG/10 ML VIAL IVP SCH (08:52)
[2021-09-04] MEDS: CHLORHEXIDINE GLUCONATE 15 ML CUP MUCOUS MEM SCH (08:52)
[2021-09-04] MEDS: ASCORBIC ACID 500 MG TAB PO SCH ×2 (08:52→11:19)
[2021-09-04] MEDS: QUEtiapine 25 MG TAB PO SCH ×2 (08:52→11:19)
[2021-09-04] MEDS: CHOLECALCIFEROL 25 MCG (1000 IU) TABLET PO SCH ×2 (08:52→11:19)
[2021-09-04] MEDS: hydrALAZINE HCL 25 MG TAB PO SCH ×2 (08:52→11:19)
[2021-09-04] MEDS: METOPROLOL TARTRATE 50 MG TAB PO SCH ×2 (08:53→11:19)
[2021-09-04] MEDS ORDERED: LORazepam 2 MG/ML INJ IV PRN (08:57)
[2021-09-04] MEDS: SENNOSIDES-DOCUSATE SODIUM 1 EACH TAB PO SCH (09:05)
[2021-09-04] MEDS: bisacodyL 10 MG SUPP RECTAL SCH (09:05)
[2021-09-04 09:12] VITALS: BMI 38.8
--- NOTE | 2021-09-04 10:23 | P.PN ---
Subjective Progress Note Date: 09/04/21 Principal diagnosis: Coronavirus associated pneumonia. Acute hypoxic respiratory failure secondary to COVID-19 pneumonia On today's evaluation patient is seen in follow-up on 08/05/2021, he is currently on BiPAP support with pressure of 14/8, and the pulse ox is 87-93%, patient does alternate with Airvo at 60 L and 90% FiO2, and at bedtime and as needed for periods of time during the day he does go on BiPAP. He is awake and alert, he sitting up on the edge of the bed, dyspneic with exertion, but no acute distress, he remains on Bicitra neb, he is on IV Decadron, Lovenox 60 mg twice daily, he is on 0.9 normal saline at a rate of 50 ML per hour, he is on multivitamins, his latest chest x-ray from 08/04/2021 showed improved inspiration, improved right basilar focal consolidation, and persistent bilateral diffuse reticulonodular opacities in the lower lungs consistent with known COVID-19 infection. Today's labs have been reviewed, his white blood cell count is 19.1, hemoglobin is 13.1, d-dimer is 14.3, sodium is 133, the rest of electrolytes and renal profile were fairly unremarkable, his inflammatory markers are relatively stable and LDH is 2935, and CRP is 18.2, pro calcitonin level is slightly improved and is down to 0.40. His blood and sputum cultures have shown no growth. He did have a fever with a temp of 101.7F. Currently afebrile. No complaints of chest discomfort. No hemoptysis, his lower extremity Dopplers were negative for DVT. On 08/06/2021 patient seen in follow-up on medical surgical floor. Patient still requiring high flow oxygen per Airvo, and he is requiring BiPAP support most of time with pressures of 14/88 and FiO2 of 100% and his pulse ox is 87- 90%, he continues to have fevers, with a T-max 101.7F, overnight his fever pa ttern has improved and he still having some low-grade fevers. He is short of breath with any exertion. He continues on Decadron 6 mg daily, Baricitinib, and Lovenox at intermediate dosing at 0.5 mg/kg twice daily which is above 60 mg twice daily for this patient's weight. His d-dimer is down to 8.58 on today's labs, improved although still significantly elevated, lower extremity Dopplers were negative for any evidence of DVT. There is concern for superimposed bacterial infection, especially in view of fever, and elevated white blood cell count. Today's white count is 22.1, hemoglobin is 13, sodium is 131, rest of electrolytes were within normal limits, B1 is 27 creatinine 0.89, pro Level Was Borderline at 0.40, Also Suggestive of a Possible Super Imposed Bacterial Infection. Patient was transferred yesterday to the ICU, and around 2 AM this morning, I was notified about this patient is not doing well. Patient was noted to be desaturating, anxious, tachycardic, and patient did not improve much with Precedex. Hence I recommended intubating the patient. Patient was intubated by SWINE NUTRITIONIST, trace on mechanical ventilation, and he is now on assist control rate of 38, tidal volume of 375 100% FiO2 and PEEP is 18. His ABG showed a pO2 of 99 pCO2 57 pH of 7.27. Patient is on multiple drips including propofol at 50 fentanyl at 0.25 mcg/kg/h, Nimbex at 1 and he is on IV fluid 0.9 normal saline at 50 mL per hour. Patient was actually intubated around 2:45 AM this morning. Reviewed his chest x-ray, clearly showed bilateral infiltrates, consistent with COVID-19 pneumonia. His endotracheal tube is in the proper position. And his orogastric tube is also in the proper position. After reviewing his ABG, I cut down his FiO2 to 90%, may consider going higher on the PEEP, may also consider placing the patient in prone position. I have consulted interventional radiology for a PICC line placement, and I went ahead and placed a right radial arterial line. Patient will be off heparin for a couple of hours prior to the PICC line placement. I reviewed his CT angiogram of the chest from yesterday, the minor evidence of pulmonary embolism is not clinically impressive, however nonetheless the patient will need to be heparinized noticing that he has elevated d-dimer and the fact that he has COVID-19 pneumonia which is a major provoking factor for thrombus embolic disease. WBC count today is 19 hemoglobin is 11.9 his PTT was therapeutic initially at 50.1, and this morning it is 37.9, patient received a heparin bolus. Electrolytes are normal potassium is 5.1 BUN is 28 creatinine is 1.03. Medications espinoza, patient is on albuterol, amlodipine, vitamin C, Peridex, vitamin D, Nimbex, Decadron 6 mg IV push daily, fentanyl, heparin, hydralazine, metoprolol, lisinopril, Protonix, Zosyn, and zinc. Used to be on baricitimib, however because of his leukocytosis and elevat ed pro calcitonin, this was discontinued, and we started the patient empirically on antibiotics. Blood cultures and sputum cultures so far are negative. And they seem to be nondiagnostic so far. At one point, the patient was spiking fevers, his T-max yesterday was 99.1. The patient is seen today 08/08/2021 and follow-up in the intensive care unit. He remains intubated, sedated, paralyzed and on the mechanical ventilator. Current settings are assist control at a rate of 38, tidal volume 375, FiO2 100% and a PEEP of 18. Peak pressures of 35, plateau of 33. Morning blood gases revealed a PaO2 of 205, pCO2 56, pH 7.22. He remains in sinus tachycardia currently at 104. He is currently on propofol 50 mcg/kg/m, fentanyl at 0.25 mcg/kg per hour, Nimbex at 1 mcg/kg/m, heparin drip per weight-based protocol. 0.9 normal saline at 125 ML's per hour. Staff did attempt to prone the patient yesterday however he had a significant cuff leak, significant desaturations and had to be placed back in supine position almost immediately. Chest x-ray reveals continued diffuse fine interstitial infiltrates, left greater than right with possibly some slight improvement in aeration. Blood cultures reveal no growth. Sputum cultures reveal no growth. White count 15.1. Hemoglobin 9.8. Platelets 230. Lymphocytes 0.8. Sodium 133. Potassium 5.6. Bicarb 21. Creatinine 2.88. Blood glucose 118. AST 39. ALT 61. He is continued on Decadron, Zosyn, vitamin supplements. He is currently afebrile. Not requiring pressors. He is being nourished with vital AF at 20 ML's per hour. Reevaluated today on 08/09/2021, patient remains in the ICU, intubated and mechanically ventilated, sedated and paralyzed. Ventilator settings are assist control rate of 38 tidal volume 375 FiO2 65% PEEP increased to 20 this morning. ABG earlier on a PEEP of 18 showed a pO2 of 66 pCO2 of 56 pH of 7.35. Patient is on Nimbex at 2 mcg/kg/m fentanyl 0.5 mcg/kg/h propofol at 55 mcg/kg/m still on a bicarb drip at 75 mL per hour. Patient is on enteral feeding using vital AF 28/28. Patient remains on Decadron at 6 mg IV push twice a day. Remains on heparin. Remains on the COVID-19 cocktail. Remains on albuterol, remains on GI prophylaxis. Insulin as per protocol, metoprolol Pavithra and empirically on Zosyn for his elevated pro calcitonin level. Chest x-ray continues to show bilateral interstitial infiltrates consistent with COVID-19 pneumonia not much of a change noted on the chest x-ray today. Labs, showed relatively normal CBC. PTT is 41.6, patient is on heparin, electrolytes are normal renal profile showed slight improvement to BUN is 53 creatinine 2.22. Repeat pro calcitonin yesterday was 5.5, last LDH was 2931, and C-reactive protein is elevated at 31.6 Reevaluated today on 08/10/2021, remains in the ICU intubated and mechanically ventilated, sedated and paralyzed. Thank you the settings are assist control rate 38 tidal volumes at 375 FiO2 50% PEEP of 20, peak airway pressure 39 left total pressure is 37 ABG showed a pO2 of 65 pCO2 52 pH of 7.35. Remains on multiple drips including Nimbex at 2 mcg/kg/m, propofol at 70 micrograms per kilo per minute fentanyl at 1.5 mcg/kg/m and cutting down to 1 mcg/kg/m. Remains on enteral feeding with vital AF 28/28. Remains on Decadron 6 mg twice a day remains on Zosyn and his last procalcitonin was 5.5 Chest x-ray continues to show evidence of bilateral infiltrates left seems to be more involved than the right. Labs today showed d-dimer of 1.78 down from 8.58, patient remains on heparin. CT of the chest showed nonocclusive thromboembolic disease. LDH is down to 1114 from 2931 and C-reactive protein is elevated at 19.9 but much better compared to a few days ago where it was about 32. WBC count is 11.8 hemoglobin is 8.4. Platelets are 317,000 Patient was reevaluated today on 08/11/21, patient remains in the ICU, intubated and mechanically ventilated. Patient is sedated and paralyzed, he is on Nimbex at 1.5 mcg/kg/m, fentanyl at 1 mcg/kg/h, propofol is 65 mcg/kg/h, he is also on heparin drip and he is on IV fluid at 65 mL per hour in the form of 0.9 normal saline. Patient is receiving enteral feeding vital AF Ventilator settings include assist control rate of 38 tidal volume 375 FiO2 60% PEEP of 20, ABG showed a pO2 of 58 pCO2 of 55 pH of 7.31, and this was on 55%, hence the FiO2 was increased to 60%. Patient desaturates even with a PEEP down to 18, hence I'm keeping him on a PEEP of 24 now. Chest x-ray shows bilateral infiltrates, however the left lower lobe seems to be more involved than the rest of the lungs, more infiltrate noted in the left lower lobe area. Patient remains on Zosyn, he is off baricitinib, mostly because of his elevated pro calcitonin level, and he was placed on antibiotics empirically. And will add Levaquin empirically in addition to Zosyn. Cultures so far are nondiagnostic. Patient remains on Decadron 6 mg twice a day. And he is also on the COVID-19 cocktail. Patient remains on the COVID-19 cocktail, and he remains on GI and DVT prophylaxis Progress note dated 08/12/2021. 31-year-old black male, again seen in the intensive care unit, room 262. The patient was admitted on July 31 with coronavirus associated pneumonia. He was moved to the intensive care unit on August 06 and intubated on the same day for worsening respiratory failure with hypoxemia. Currently, the patient remains on the mechanical ventilator. He is on the volume assist control mode, rate 38, tidal volume 375, FiO2 60%, to be decreased to 50%, and PEEP of 20. Arterial blood gases show pO2 of 70, pCO2 of 49, and a pH is 7.36. The patient is receiving saline at 50 mL an hour, propofol 60 mcg/kg/m, Nimbex at 2 mcg/kg/m with train of four monitoring, heparin via weightbase protocol, fentanyl at 2 mcg/kg/h, and vital AF at goal, which is 28 mL an hour. White count 15, hemoglobin 7.8, hematocrit 26.1, and platelet count 433,000. D-dimer was 1.68. Sodium 140, potassium 5.3, chlorides 111, CO2 25, anion gap 4, BUN 60, and creatinine 1.73. LDH is 1160. C-reactive protein is 5.8. Chest x-ray shows diffuse bilateral infiltrates. This is consistent with his known diagnosis of coronavirus associated pneumonia. Endotracheal tube is about 3-1/2 cm above the tracheal delmer. Progress note dated 08/13/2021. 31-year-old black male, again seen in the intensive care unit, room 262. The patient was admitted to the hospital on July 31 with coronavirus associated pneumonia. He was moved to the intensive care unit on August 06, and intubated on the same day for worsening hypoxemic respiratory failure. The patient remains on mechanical ventilator. His ventilator settings include the volume assist control, rate 38, tidal volume 375, FiO2 currently 75%, with a PEEP of 20. He had blood gases done early in the morning showing a pO2 of 49, pCO2 of 62, and a pH is 7.26. That was when he was on 50% and when he was getting a bath. Subsequently, we increase his FiO2 to 100%, and he is now been weaned down to 75%. I did asked the respiratory therapist to repeat an ABG. The patient's currently receiving propofol at 75 mcg/kg/m, Nimbex at 2 mcg/kg/m, fentanyl at 3 mcg/kg/h, and heparin via weightbase protocol. He is getting saline at KVO, and tube feedings with Nepro at 14 mL an hour, which is goal. He remains on Zosyn and Levaquin. He is apparently scheduled for tracheostomy and PEG tube placement on Thursday. White count is 30, hemoglobin 9.5, hematocrit 31.7, platelet count 634,000. D-dimer is 2.68. Sodium 140, potassium 5.6, chlorides 108, CO2 27, anion gap 5, BUN 51, and creatinine 1.61. LDH is 1730. C-reactive protein is 4.1. Albumin is 3.1. Chest x-ray shows diffuse bilateral infiltrates, essentially unchanged. Progress note dated 08/14/2021. 31-year-old black male, again seen in the intensive care unit, room 262. The patient was admitted to the hospital on July 31 with coronavirus associated pneumonia. He was moved to the intensive care unit on August 06, and intubated on the same day for worsening oxygenation. The patient remains on the mechanical ventilator. Today, the patient will have a tracheostomy tube placed as well as a PEG tube placed. Current ventilator settings include the volume assist control mode, rate 38, tidal volume 375, FiO2 55%, and PEEP of 20. Blood gases on the same settings except for 40% FiO2, show a PaO2 of 49, pCO2 of 51, and a pH 7.37. When I was alerted about these blood gases, I increased the FiO2 from 40% up to 55%. Currently, saturations are in the low 90s. The patient's on Nimbex at 2 g kilogram per minute, propofol at 65 mcg/kg/m, 0.9 saline at 20 mL an hour, fentanyl at 2 mcg/kg/h, heparin via weightbase protocol, and tube feedings are currently on hold for anticipated tracheostomy and PEG tube today. White count 17.5, hemoglobin 7.7, hematocrit 25.1, and platelet count 462,000. Sodium 139, potassium 5.2, chlorides 108, CO2 24, anion gap 7, BUN 51, and crea tinine 1.77. Chest x-ray again shows diffuse bilateral infiltrates, which are essentially unchanged. Progress note dated 08/15/2021. 31-year-old black male, again seen in the ICU, room 262. The patient was admitted to the hospital on July 31 with coronavirus associated pneumonia. Because of worsening hypoxemia, he was moved to the intensive care unit on August 06. It's intubated on the same day. He remains on mechanical ventilator. Yesterday, he had a tracheostomy performed. A PEG tube was apparently attempted, but not able to be performed. He remains on the volume assist control mode with, with a rate of 38, tidal volume 375, FiO2 55%, any. Arterial blood gases show pO2 70, pCO2 37, and a pH is 7.4. The patient's currently on propofol at 75 mcg/kg/m, Nimbex at 2 mcg/kg/m, fentanyl at 2.5 mcg/kg/h, saline at 20 mL an hour, and he will be restarted on IV heparin. Unfortunately, there was no NG tube. It was removed during the attempted procedure yesterday, and the nurses have been having a hard time replacing it. We will try again today. White count 15.6, hemoglobin 7.4, hematocrit 23.7, and platelet count 404,000. PTT was 20.9. D-dimer 3.76. Sodium 137, potassium 4.9, chlorides 105, CO2 25, anion gap 7, BUN 49, and creatinine 1.59. Chest x- ray continues to show diffuse bilateral infiltrates, may be a bit improved. Progress note dated 08/16/2021. 31 yo black male, again seen in the intensive care unit, room 262. The patient was admitted to the hospital on July 31, with coronavirus associated pneumonia. Because of worsening hypoxemia, he was moved to the intensive care unit on August 06, and intubated on the same day. He remains on the mechanical ventilator. On August 14, the patient underwent tracheostomy. The PEG tube was attempted, but was not able to be done. Ventilator settings include the volume assist control mode, rate 38, tidal volume 375, FiO2 55%, and PEEP of 20. Blood gases show a PaO2 of 70, pCO2 of 52, and a pH of 7.34. The patient is currently on fentanyl, at 4 mcg/kg/h, propofol at 75 mcg/kg/m, Nimbex at 2 mcg/ kg/m, Nepro, at 14 mL an hour, which is goal, and saline at KVO. White count 15.7, hemoglobin 7.5, hematocrit 23.9, platelet count 429,000. D-dimer was 5.08. Sodium 137, potassium 4.7, chlorides 107, CO2 24, anion gap is 6, BUN 41, creatinine 1.30. Albumin is 2.8. C-reactive protein is 3.8. Chest x-ray shows diffuse bilateral infiltrates. No change in chest x-ray compared to prior x- rays. Progress note dated 08/17/2021. 31-year-old black male, seen again in the intensive care unit, room 262. The patient was admitted to the hospital on July 31, with coronavirus associated pneumonia. Because of worsening hypoxemia, he was moved to the intensive care unit on August 06 and intubated on the same day. He remains on the mechanical ventilator. On August 14, the patient underwent tracheostomy. The PEG tube was attempted, but could not be performed. Current ventilator settings include the volume assist control mode, rate 38, tidal volume 375, FiO2 50%, PEEP of 20, to be turned down to 15. Arterial blood gases show pO2 of 81, pCO2 48, and a pH is 7.36. The patient's on saline at 20 mL an hour, fentanyl at 4 mcg/kg/h, propofol at 75 mcg/kg/m, Nimbex at 3 g kilogram per minute, and tube feedings with Nepro at 14 mL an hour, which is goal. Last night, because of bleeding around the tracheostomy site, I gave the patient 1 unit of packed red blood cells, 1 unit of platelets, and protamine sulfate. The bleeding did stop. White count is 15.2, hemoglobin 7.7, hematocrit 24.6, and platelet count 348,000. Sodium 135, potassium 4.7, chlorides 107, CO2 25, anion gap 3, BUN 32, creatinine 1.26. Chest x-ray from today, shows stable bilateral pulmonary infiltrates. Progress note dated 08/18/2021. 31-year-old black male, again seen in room 262. He was admitted to the hospital on July 31 with coronavirus associated pneumonia. On August 06, because of worsening hypoxemic respiratory failure, the patient was moved to the ICU and intubated. On August 14, the patient underwent tracheostomy tube placement. A PEG tube was attempted, but could not be performed because of anatomic reasons. The patient remains on the volume assist control mode, rate 38, tidal volume 375, FiO2 50%, PEEP of 15. Blood gases show pO2 61 pCO2 55 and a pH is 7.30. The patient is currently on fentanyl at 4.5 mcg/kg/h, Nimbex at 3 mcg/kg/m, propofol at 75 mcg/kg/m, Cleveprex at 13 mg an hour Nepro, at 13 mL an hour which is goal. The patient did not tolerate a Nimbex holiday. Today regarding increased his labetalol, so that we can get him off the Cleveprex. We'll use 1 0-20 mg IV, every 2 hours, for systolic greater than 160 or mean arterial pressure greater than 100. Current laboratory data includes a white count of 14.7 in room 8.7 hematocrit 27.5 and a platelet count 349,000. Sodium potassium chloride CO2 all normal. Anion gap 6. BUN 28, creatinine 1.16. Albumin was 3.1. Chest x-ray continues to show diffuse bilateral patchy infiltrates. There is also the presence of the midline tracheostomy tube. Reevaluated today on 08/29/21, patient remains in the ICU, intubated and mechanically ventilated. He is on assist control rate of 24 tidal volume 450 F iO2 45% PEEP of 12. Patient remains on propofol at 35 mcg/kg/m, he is also on fentanyl at 20 mcg/kg/h, and he is on IV fluid at KVO. His ABG today showed a pO2 of 87 pCO2 46 pH of 7.44. Patient underwent tracheostomy change yesterday by general surgery, and it seems to be functioning quite well. Patient remains on Nepro, not yet to goal, and the dose is being increased gradually. He is off Nimbex, and we are tapering his propofol and fentanyl and down, plan is to restart the patient on Precedex, and hopefully start some weaning trials probably again tomorrow. In spite of being on sedation, patient is arousable, he is actually awake, follows simple instructions, but he is noted to be pr ofoundly weak. Asked x-ray is basically about the same showing bilateral infiltrates mostly right upper lobe and left lung. WBC count today is 6.1 hemoglobin is 9.9 electrolytes are normal, renal profile is normal Patient was reevaluated today on 08/30/21, patient remains in the ICU, remains intubated and mechanically ventilated, he is now on assist control rate of 24 tidal volume 450 FiO2 45% PEEP of 12 and I cut it down to 8. ABG showed a pO2 of 95 pCO2 of 40 pH of 7.51. 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 Today I'm going to try the patient on pressure support of 14 and CPAP of 8, and I was watching the patient, he was maintaining good volumes with a pressure support of 14 volumes in the range of 450-500, and he was not in any distress, his rate was in the 20s. Obviously the patient seems to be tolerating pressure support of 14 and CPAP of 8. WBC count today is 8.1 hemoglobin is 9.1. Basic metabolic profile is normal renal profile is normal. Reevaluated today on 08/31/21, patient remains in the ICU, intubated and mechanically ventilated. However yesterday he was able to go for almost 10 hours on pressure support of 14 and CPAP. Patient is now back on pressure support 10 and CPAP, and I plan to keep him on this weaning mode of mechanical ventilation as long as he tolerates it. He seems to be very comfortable, his respiratory rate is in the mid to 20s tidal volume is in the range of 400 up to 500. Chest x-ray is basically about the same. His ABG today showed a pO2 of 103, pCO2 of 43 pH of 7.50. Basic metabolic profile is normal CBC is relatively normal hemoglobin is 9.1. Reevaluated today on 09/01/21, patient remains in the ICU, intubated, mechanically ventilated, yesterday the patient tolerated over 16 hours of pressure support of 10 and CPAP, and today I'm recommending that the patient goes on pressure support of 8 CPAP/5. Patient seems to be doing great, and I have a strong feeling that maybe later on today I couldn't transition the patient to a trach collar. Patient is awake, he was just transitioned from assist-control mode of mechanical ventilation to pressure support of 10 and CPAP, and a change in her on to pressure support of 8. Chest x-ray continues to show same infiltrates in the left lung and right upper lobe. Not much of a change. Clinically however the patient seems to be improving. CBC is relatively normal hemoglobin is 9.2 electrolytes are normal renal profile is normal. Progress note dated 09/02/2021. This is a 31-year-old black male that I saw last on August 18. The patient was admitted to the hospital way back on July 31, intubated on August 06, and had a tracheostomy tube placed on August 14. More recently, he's been doing better, and is currently on pressure support of 8 CPAP of 5. His blood gases this morning showed a pO2 of 96, pCO2 of 32, and pH 7.51. He is currently on Precedex at 0.4 mcg/kg/h, saline at 20 mL an hour, and vital AF 1.2 at 60 mL now which is goal. He remains on Zosyn and Eliquis. When not on pressure support, he is on the volume assist control, rate 24, tidal volume 450, FiO2 35%, and PEEP of 5. This morning, white count 8.9, hemoglobin 8.8, hematocrit 28.5, and platelet count 382,000. Chest x-ray continues to show diffuse bilateral airspace disease consistent with coronavirus associated pneumonia. Progress note dated 09/03/2021. 31-year-old black male, last seen by me in August 18. The patient was actually admitted to the hospital way back on July 31, for coronavirus associated pneumonia. The patient was intubated for respiratory failure on August 06, and underwent tracheostomy and attempted PEG tube placement on August 14. More recently, the patient has been doing much better, and has been transitioned to pressure support. He's been on pressure support since yesterday, with a setting of 8 cm water pressure support, and CPAP of 5 cm water. Arterial blood gases show pO2 of 71, pCO2 42, and a pH is 7.52. The patient is receiving vital AF at 60 mL an hour, which is goal, saline at 20 mL an hour, and Precedex at 0.4 mcg/kg per hour. White count 10, hemoglobin 8.9, hematocrit 29.2, platelet count 381,000. Sodium 138, potassium 3.6, chlorides 100, CO2 32, anion gap 6, BUN 28, creatinine 0.78. Chest x-ray shows diffuse bilateral infiltrates, and is essentially unchanged. Progress note dated 09/04/2021. 31-year-old black male, seen again, in room 262, in the ICU. I've seen the patient the last 2 days. Currently, the patient has been on pressure support of 8 cm water, and a CPAP of 5, with an FiO2 of 45%. The patient did spend about 5-6 hours yesterday, on trach collar. The patient's getting saline at 20 mL an hour. Apparently has NG tube came out. We will have her place. The patient is going to give some Ativan for anxiety. The patient potentially could be transferred to long-term acute care today. Clinically he has been very stable. White count 12.5, hemoglobin 9.4, hematocrit 31, and platelet count 437,000. Sodium 140, potassium 4.3, chlorides 104, CO2 28, anion gap 8, BUN 27, creatinine 0.71. Chest x-ray again shows diffuse bilateral left greater than right patchy opacities consistent with coronavirus associated pneumonia. Objective - Vital Signs Vital signs: Vital Signs Temp 98.4 F 09/04/21 08:00 Pulse 156 H 09/04/21 10:00 Resp 20 09/04/21 10:00 BP 171/114 09/04/21 10:00 Pulse Ox 94 L 09/04/21 10:00 Intake & Output 09/03/21 09/04/21 09/04/21 18:59 06:59 18:59 Intake Total 857.635 7692.822 151.040 Output Total 2965 830 520 Balance -2352.367 252.822 -368.960 Weight 102.6 kg 102.6 kg Intake: IV 260 220 80 Sodium Chloride 0.9% 1, 260 220 80 000 ml @ 20 mls/hr IV . Q24H [facility]ARG[facility] Rx#:[id number] Intake, IV Titration 172.633 82.822 11.040 Amount Dexmedetomidine/0.9% NaCl 172.633 82.822 11.040 (Pmx) 400 mcg In Empty Bag 1 bag @ 0.2 MCG/KG/HR 5.71 mls/hr IV .[id number] [facility]ARG[facility] Rx#:[id number] Tube Feeding 180 660 60 Other 120 Output: Urine 2965 830 520 Other: Voiding Method Indwelling Catheter Indwelling Catheter ABP, PAP, CO, CI - Last Documented Arterial Blood Pressure 120/59 - Exam No acute distress, awake and alert, with a midline tracheostomy tube in place. Saturations are 94% on pressure support and CPAP. HEENT examination is grossly unremarkable. Neck supple. Full range of motion. No adenopathy thyromegaly or neck vein distention. Cardiovascular examination reveals regular rhythm rate. S1-S2 normal. No S3 or S4. No discernible murmur noted. Heart sounds are distant. Heart rate 100 bpm. Lungs reveal coarse bilateral rhonchi. Breath sounds equal bilaterally. No wheezes or crackles. Saturations are 94% on an FiO2 of 45%. Abdomen soft bowel sounds are heard. No masses or tenderness. Extremities are intact. No cyanosis clubbing or edema. Skin is without rash or lesion. Neurologic examination other than weakness of the extremities, appears to be relatively normal. - Labs CBC & Chem 7: 09/04/21 05:04 09/04/21 05:04 Labs: Abnormal Lab Results - Last 24 Hours (Table) 09/03/21 09/03/21 09/04/21 Range/Units 12:21 18:03 00:04 WBC (3.8-10.6) k/uL RBC (4.30-5.90) m/uL Hgb (13.0-17.5) gm/dL Hct (39.0-53.0) % MCHC (31.0-37.0) g/dL RDW (11.5-15.5) % BUN (9-20) mg/dL Glucose (74-99) mg/dL POC Glucose (mg/dL) 100 H 129 H 107 H (75-99) mg/dL 09/04/21 09/04/21 09/04/21 Range/Units 05:04 05:04 05:59 WBC 12.5 H (3.8-10.6) k/uL RBC 3.32 L (4.30-5.90) m/uL Hgb 9.4 L (13.0-17.5) gm/dL Hct 31.0 L (39.0-53.0) % MCHC 30.3 L (31.0-37.0) g/dL RDW 18.2 H (11.5-15.5) % BUN 27 H (9-20) mg/dL Glucose 107 H (74-99) mg/dL POC Glucose (mg/dL) 111 H (75-99) mg/dL Assessment and Plan Assessment: Acute hypoxemic respiratory failure secondary to coronavirus associated pneumonia, status post intubation and mechanical ventilation on August 06. Status post tracheostomy tube insertion, 08/14/2021. Unfortunately, PEG tube could not be placed on that same day. Acute respiratory distress syndrome, secondary to coronavirus infection. Elevated inflammatory marker secondary to coronavirus infection. Acute/subacute pulmonary embolism. Elevated liver enzymes secondary to coronavirus infection. Morbid obesity. Benign essential hypertension. Acute kidney injury, recovered. Critical illness polyneuropathy/myopathy. Plan: Plan dated 08/12/2021. We'll attempt to get the patient off of the paralytic if possible. I gave instructions to the nurse. In addition, we will continue with the propofol and the fentanyl for now. We'll reduce the FiO2 down from 60%, down to 50%. I told the nurses and respiratory therapist except saturations in the mid 80s or higher. The patient will continue on heparin for now. Additional recommenda tions and suggestions are forthcoming. Prognosis is guarded. We will continue to follow this patient, and make recommendations where appropriate. Plan dated 08/13/2021. We're unable to get the patient off the paralytic. During his bath, his saturations dropped and his blood pressure went up. The nurses contacted me. I ordered the FiO2 to be increased to 100%, and also use labetalol IV for blood pressure control. At that point, he was on maximal dose Cleveprex. He is scheduled for a tracheostomy and PEG tube tomorrow. I think that's espinoza. We will repeat a blood gas and a few minutes. His FiO2 is been weaned down to 75%. Additional recommendations and suggestions are forthcoming. His medications are reviewed. He remains on Zosyn and Levaquin. Microbiology is as far all negative. Plan dated 08/14/2021. The patient's going to have a tracheostomy and PEG tube placed today by surgery. I think that will give him the best chance of full recovery. The patient's FiO2 was increased from 40%, up to 55%, when I was alerted about the morning blood gases. Patient remains on fentanyl, propofol, and Nimbex. We will resume tube feedings after 24 hours post placement of the feeding tube. Labs, x-rays, and medications all reviewed. Everything is appropriate at this time. The patient remains on antibiotics in the form of Zosyn and Levaquin. Microbiology thus far as all been negative. We will continue to follow make recommendations where appropriate. Prognosis is guarded. Plan dated 08/15/2021. The patient did have his tracheostomy tube placed on August 14. Unfortunately, the PEG tube was not able to be place. The patient will be started back on heparin. The nurses will attempt to place an NG tube. The patient remains on propofol, Nimbex, and fentanyl. We will restart tube feeds once the NG tube was replaced. Overall prognosis remains very guarded. Labs, x-rays, and medications are all reviewed. Everything does seem to be appropriate. We will continue to follow this patient, and make recommendations where appropriate. The patient remains on Zosyn and Levaquin, and all microbiologic studies as far have been negative. Plan dated 08/16/2021. The patient is doing about the same. The goal today would be to try to get him off the paralytic. The patient's labs, x-rays, and medications are all reviewed. Everything is appropriate. We will continue to follow closely and make every attempt the patient moving in the right direction and eventually off the ventilator. The patient remains on Zosyn and Levaquin. Microbiologic studies have been negative. Additional recommendations and suggestions are forthcoming. We will continue to follow this patient and make recommendations where appropriate. Plan dated 08/17/2021. Currently, the patient appears to be reasonably stable. We will drop the PEEP from 20 down to 15 cm water. Blood gases this morning were excellent. The patient did receive blood, platelets, and protamine. Because of bleeding around the tracheostomy site. Remains on fentanyl, propofol and Nimbex. He is getting nourished at goal. Yesterday, we attempted to stop the Nimbex, but we had to restart it because became very tachypnea. Additional recommendations and suggestions are forthcoming. Prognosis is guarded. The patient is very critically ill. Plan dated 08/18/2021. Currently, the blood pressures much better controlled on labetalol. In addition, yesterday, the PEEP was dropped from 20 cm of water to 15 cm water. The patient remains on appropriate medications and sedatives. The patient was not able to tolerate a holiday from the Nimbex. The patient continues on tube feeds. Additional recommendations and suggestions are forthcoming. We will continue to follow make recommendations were appropriate. Prognosis is guarded. This patient is very critically ill. Plan dated 09/02/2021. The patient appears to be moving in the proper direction. He is awake and alert. He does have diffuse muscle weakness. The patient is currently on pressure support of a CPAP of 5 and 35%. Arterial blood gases are adequate. We will continue to follow. The patient currently is on a saline drip at 20 mL an hour, Precedex, and tube feeds at goal. Prognosis is still guarded. We will continue to follow make recommendations where appropriate. Plan dated 09/03/2021. Currently, the patient is doing very well. The patient remains on pressor support and CPAP. Later today, the patient will be transitioned to trach collar. The patient is still very weak and likely suffers some critical illness polyneuropathy. Labs, x-rays, medications are all reviewed. Clinically, the patient's very awake and alert. We will continue to follow, and make recommendations where appropriate. We will attempt to wean the patient off the Precedex today. Plan dated 09/04/2021. Currently, the patient's doing much better. The NG tube will have to be replaced. The patient could be considered for possible discharge to long-term acute care. The patient did spend about 6 hours on trach collar yesterday. For the rest of the time, the patient has been on pressure support and CPAP. He has not been back on the ventilator for at least 2 days now. Labs and x-rays are reviewed. Medications are reviewed. Prognosis is guarded. The patient has profound weakness secondary to critical illness polyneuropathy. We will continue to follow make recommendations where appropriate. Time with Patient: Greater than 30
[2021-09-04] MEDS: LABETALOL 5 MG/ML VIAL MDV IVP PRN (10:27)
[2021-09-04] MEDS: amLODIPine 5 MG TAB PO SCH (11:19)
[2021-09-04] MEDS: APIXABAN 5 MG TAB PO SCH (11:19)
[2021-09-04] MEDS: ZINC SULFATE 220 MG CAP PO SCH (11:20)
[2021-09-04 12:07] LABS: Glucose,Whole Blood 111 mg/dL (75-99)
[2021-09-04 13:18] VITALS: TEMP 98
--- NOTE | 2021-09-04 14:20 | P.DS ---
Providers Date of admission: 07/31/21 04:18 Expected date of discharge: 09/04/21 Attending physician: Loli Bonilla Consults: 07/31/21 04:17 Consult Physician Routine Consulting Provider: Omar Ojeda Consult Reason/Comments: covid Do you want consulting provider notified?: Yes 08/08/21 07:46 Consult Physician Routine Consulting Provider: Michelle Atkinson Consult Reason/Comments: skye Do you want consulting provider notified?: Yes 08/12/21 10:11 Consult Physician Routine Consulting Provider: Darian Green Consult Reason/Comments: COVID ARDS, trach and peg Do you want consulting provider notified?: Yes Primary care physician: Stated None Hospital Course: Discharge diagnosis Acute bilateral Covid pneumonia, suspected bacterial superinfection mainly in the left lower lobe. Completed antibiotic course Zosyn. Acute hypoxic respiratory failure, remains on mechanical ventilation. s/p traheostomy ARDS secondary to COOVID Pneumonia Critical illness polyneuromyopathy Right lung PE was on IV heparin. changed to Eliquis Elevated inflammatory markers. Improving Acute kidney injury secondary to ATN with Covid pneumonia. Resolved. Hypertension Hyperkalemia secondary to acute kidney injury. improved. Anemia Metabolic acidosis. improved. Elevated d-dimer Morbid Obesity with BMI of 49.8 Hospital course This is a pleasant 31 years old -[place] man with no significant past medical history presents with dyspnea which started yesterday associated with fever and coughing. Patient tested positive for covid earlier on Thursday after he felt with fever and cough on Thursday but at that time he was not dyspneic. He denies chest pain or abdominal pain but he has diarrhea on and off. No vomiting. He is saturating 89% on 6 L oxygen via nasal cannula, afebrile. Tachypneic with a breathing rate at 23. CBC, is unremarkable. INR is normal at 1.0. Sodium is 1:30, creatinine normal at 1.1, glucose 103. AST is mildly elevated 106 and ALT mildly elevated 106. Elevated lactate dehydrogenase 2600 and C-reactive protein 20.3. Cholelithiasis positive EKG shows sinus tachycardia and [address]-T changes Chest x-ray showing bilateral infiltrates 08/01/2021 Patient sitting at bedside using 50 L of oxygen via nonrebreather. Reports slight improvement in his breathing and his chest x-ray showing somewhat improvement in that area should on both sides. He has low-grade fever today at 200. Blood pressure is stable. D-dimer is 1.87. BMP is unremarkable, liver enzymes slightly trending down. LDH slightly down at 2437 and slightly decreased and C-reactive protein 16.7. CBC and pro-calcitonin are pending Sputum and blood culture are still pending He remains on multiple vitamins, Baricitinib, dexamethasone and normal saline at 75 mL/h. Also he is on Lovenox. Norvasc is added for blood pressure control also we will add metoprolol Subjective: 08/05/21 patient still with dyspnea requiring BiPAP most of the time. He is developing fever of 101.7 today. Blood pressure 157/91. He has leukocytosis 19.1.liver enzymes Are the same. LDH elevated 2935 and C- reactive protein 18.2 his still on multiple vitamins, Baricitinib, dexamethasone and normal saline at 50 mL/h. Also he is on Lovenox therapeutic dose after his d-dimer yesterday. 08/06/2021 Patient remains on BiPAP needing higher pressures 14/8 and FiO2 of 100%. Also history of chronic fever around 100 and pro-calcitonin elevated at 0.40. This left leukocytosis around 22, LDH and C-reactive protein still elevated. D- dimer is trending down to 8.5 and CTA of the chest today showing negative for PE but bilateral groundglass opacity. Sputum culture 2 is negative. Urine analysis is negative for infection Today patient SWITCHED to heparin drip. Also he was started on Zosyn. Also dexamethasone 6 mg daily and normal saline at 50 mL per hour. Discontinue Baricitinib per pulmonary 08/07/2021 Patient respiratory status got worse and eventually patient got intubated while he is in the ICU. Pulmonary/critical care team following the patient closely and help with vent management. He has a fever of 100. Breathing rate around 29. Blood pressure is stable. WBC down to 19 K, Patient is acidotic with pH of 7.2, pCO2 of 57 which is low and high pO2 of 99. Chest x-ray showed increasing bilateral infiltrate and left lower lobe pneumonia. Repeat sputum culture is pending. First 2 samples were negative He remains on Zosyn, dexamethasone, normal saline at 50 mL per hour , heparin drip, multiple vitamins 08/08/2021 Patient remains in the ICU in critical condition and generally he is not doing well. I'll intubated and on mechanical ventilation with the pulmonary/critical care team R following closely He is hemodynamically stable, mildly tachycardic. WBC improving down to 15 but also hemoglobin dropped to 11.9 down to 9.8. And while he continued on heparin drip for suspected thrombosis secondary to his Covid infection and high d-dimer will increase his for chronic 40 mg daily and to twice a day. Patient FiO2 was lowered to 70%, he did not tolerate the prone position. He has no fever but tachypneic at 38 Today his creatinine went up 1.0 up to 2.8 with mild hyperkalemia however he is making good urine output with yellow urine in his Lees catheter bag nephrology team were consulted and bicarb drip was started for acidosis with pH of 7.22. He remains on Zosyn, dexamethasone, vitamin C, D and zinc. 08/09/2021 Remains in the ICU in critical condition. He continue on mechanical ventilation with pulmonary/critical care team on the consult. He still significantly tachypneic at 38 and leukocytosis. Possibly just at that time level 18 to 20, prone position was tried but patient could not tolerate it so avoided now. Labs showing improvement leukocytosis 12 K, hemoglobin 9.2, FiO2 lower to 55%. Creatinine improved slightly to 2.2 after starting normal saline at 75 mL/h. Chest x-ray showing the same findings of bilateral pneumonia. Dexamethasone was increased to twice daily today, normal saline 75 mL/h started. Well continued on heparin drip, Zosyn and multiple vitamins 08/10/2021 Patient condition did not change much from yesterday. He remains intubation only FiO2 lower to 55 from 70% and PEEP down to 18. With pulmonary/critical care team following the case closely. This remains tachycardia. No need for pressors. He hasn't been fever for the last 48 hours. D-dimer trending down to 1.7. WBC down to 11.8. Hemoglobin down to 8.9. Inflammatory markers improved to 114 and 19.9.. Creatinine is stable from yesterday at 2.2. Chest x-ray showing similar infiltrate both sides more on the left side. He remains on Zosyn, multiple vitamins, dexamethasone, normal saline, heparin drip. 08/11/2021 Patient remains in the ICU in critical condition. He is currently on mechanical ventilation significantly tachypneic around 38. With the floor at about 60 L/m. He is FiO2 of 60% and PEEP of 20. With pulmonary/critical care team opened and vent management. Labs showing WBC 12.6, hemoglobin slightly trending to 7.8. Lactate dehydrogenase 1245 and C-reactive protein down to 13.6. Creatinine is 2.0 Is on Zosyn, dexamethasone, normal sinus 75, heparin drip. 08/12/2021 Patient is currently in the intensive care unit. Remains on mechanical ventilator due to acute hypoxemic respiratory failure with Covid pneumonia Currently on before meals 375, FiO2 60% and PEEP of 20. Patient is on Nimbex drip and heparin subcu. Patient is also on fentanyl. Laboratory data showed WBC 15 hemoglobin 7.8 hematocrit 26.1 and platelets 433 And d-dimer is 1.68 sodium 140 potassium 5.3 chloride 101 bicarb is 25 BUN 16 creatinine 1.73. The LDH 1160. Chest x-ray showed findings similar to prior exam. Correlate for pneumonia, edema, ARDS. 08/13/2021 Patient is currently in the intensive care unit. Remains on mechanical ventilator. Assist control 375 and FiO2 at 50% and PEEP of 20. Currently being continued on Nimbex and fentanyl drip. Patient is being converted on IV heparin due to pulmonary embolism. Patient is being controlled on antibiotic Levaquin and Zosyn. Patient is scheduled for vacation and PEG tube placement tomorrow. Laboratory data showed WBC 30.0, hemoglobin 9.5 platelets 634 D-dimer 2.68, sodium 140 potassium 5.6 chloride 108 BUN 51 and creatinine 1.61, AST 75 ALT 193 Patient is being continued on dexamethasone 6 mg IV twice a day. Pulmonary and nephrology and general surgery is on board. 08/14/2021 Patient is currently in the MICU on mechanical ventilator. His control with tidal volume 375, FiO2 55%, PEEP of 20. Patient is on Nimbex drip and propofol and fentanyl drip as well as heparin drip due to pulmonary embolism. Patient is scheduled for tracheostomy and PEG tube placement. Remains on ant ibiotics in the form of Levaquin and Zosyn. Laboratory data showed WBC 17.5 hemoglobin 7.7 and platelets 462 Sodium 139 potassium 5.2 chloride 108 BUN 51 and creatinine 1.77 Albumin 2.7 and total protein 5.5. Tube feedings on hold for scheduled surgical procedure. Pulmonary, nephrology and general surgery is on board. 08/15/2021 Patient is currently in the MICU. Patient had tracheostomy and is currently remains mechanical ventilator. FiO2 55% and PEEP of 20. Patient is also on propofol, Nimbex and fentanyl drip. Also on heparin IV due to pulmonary embolism. NG tube was taken out prior to tracheostomy. Laboratory data showed WBC 15.6 hemoglobin 7.4 platelets 404 and D-dimer 3.76 Sodium 137 potassium 4.9 chloride 105 bicarb is 25 BUN 49 and creatinine 1.59 Repeat chest x-ray today showed diffuse bilateral infiltrates. Patient remains dexamethasone, antibiotics no cough Levaquin and Zosyn. Pulmonary and nephrology and general surgery is on board. 08/26/2021 Patient was admitted to the hospital due to COVID-19 pneumonia and acute hypoxic respiratory failure. Patient was also found have acute PE. Currently patient is status post tracheostomy and remains on mechanical ventilator. Patient is in the MICU currently. on pressure control 12 and FiO2 40% and PEEP of 10. Patient is awake alert and able to follow simple commands. Patient did have T- max 101 last night. Sputum cultures were sent. Chest x-ray showed stable chest. Patient is being continued on Lasix 40 mg IV daily, ascorbic acid, vitamin D3 and anticoagulation the form of Eliquis. Heart rate is controlled with metoprolol. Pulmonary and nephrology and surgery is on board. Patient is tolerating tube feeding. 08/27/2021 Patient eventually MICU. On mechanical ventilator via trach. Patient is tolerating pressure support. Chest x-ray showed bilateral infiltrates. Patient is being continued on Precedex and not on any sedation. Patient does respond to verbal stimuli and able to open his eyes and follow simple commands. on NG tube feeding. Patient is being continued on anticoagulation with Eliquis for pulmonary embolism. Not on pressor support. Laboratory data showed WBC 4.1 hemoglobin 8.1 and platelets 198 and BUN 27 creatinine 0.81 PT OT is following. 08/28/2021 Patient remains in the MICU. Currently on mechanical ventilator via trach tube. Tolerating NG tube feeding. Awake alert and able to follow simple commands. Tracheostomy tube was adjusted by pulmonary team. Patient was changed to assist control with tidal volume 450, FiO2 at 50% and PEEP of 12. Chest x-ray showed bilateral infiltrates not much change from yesterday. Patient has been afebrile. PT OT is following. Lab data showed WBC 5.6 hemoglobin 9.4 and platelets 279 BUN 23 and creatinine 0.72 bicarb 29 potassium 3.9 and albumin 3.0 08/29/2021 Patient is in the MICU. On mechanical ventilator. Awake alert and follows simple commands. Assist control with tidal volume 450, FiO2 45% and PEEP of 12. Patient underwent tracheostomy change yesterday by general surgery. Current tube feeding. Patient is off Nimbex and propofol and fentanyl is being tapered off. Patient has been very weak and possible critical care illness only neuromyopathy is being considered. Laboratory data showed WBC 6.1 hemoglobin 9.9 platelets 311 Sodium 134 potassium 3.8 chloride 98 BUN 22 and creatinine 0.85 and albumin 2.9 Pulmonary and general surgery is on board. 08/30/2021 Patient is currently in the MICU. Requiring mechanical ventilator via trach tube. On assist control with tidal volume 450, FiO2 45% and PEEP of 8. Patient is on Precedex. Tolerating oral diet via NG tube. Chest x-ray today showed worsening bilateral lung infiltrates. Lines and catheters in place. Laboratory data showed WBC 8.1 hemoglobin 9.9 and platelets 331 Sodium 138 potassium 3.8 chloride 99 bicarb 28 BUN 24 and creatinine 0.87 and albumin 3.1 Patient is being continued on Eliquis 5 mg twice daily and also on IV Lasix 40 mg daily and an antibiotic the form of Zosyn emperically. 11 1 21 Patient is currently in the MICU. Resting in the bed. Able to open his eyes with verbal stimuli and follows simple commands. Patient has been afebrile. No complaints of chest pain. Currently on trach with pressure support. Patient is also on Precedex. Usually gets very anxious. Continued on anticoagulation with Eliquis, multivitamins and also on Lasix 40 mg IV daily Chest x-ray showed findings similar. correlate with pneumonia/ARDS. Next and laboratory data showed WBC 8.9 hemoglobin 8.8 and platelets 382 Potassium 3.3 which is being replaced. Patient is on NG tube feeding. Tolerating well. Called [email or web address] regarding peer to peer for transfer to long-term acute care facility, Which is scheduled around 2 PM tomorrow. 11-2 21 Patient is currently in the MICU. Admit to the hospital due to acute hypoxic respiratory failure secondary Covid pneumonia. Status post tracheostomy and status post mechanical ventilator.. Patient is awake alert and oriented and follows simple commands. Patient was on pressure support yesterday and was changed to trach collar. Denies any complaints of chest pain. Continues on tube feeding. Chest x-ray showed diffuse increased lung markings are nonspecific. Correlate for ARDS. Findings are worsening over the interval. Laboratory showed WBC 10.0 hemoglobin 8.9 and platelets 381 BUN 28 and creatinine 0.78 and calcium 8.9 Patient is being continued on Eliquis for pulmonary embolism. Continued on Precedex and IV Lasix 40 mg daily. Pulmonary and general surgery is on board. Discussed peer to peer with insurance company. Patient is approved for long- term acute care facility transfer. 09/04/2021 Patient is currently in the MICU. Admitted to the hospital due to acute hypoxic respiratory failure due to COVID-19 pneumonia and was on mechanical ventilator. Patient did tolerate trach collar about 5-6 hours yesterday and switched back to CPAP of 5 and FiO2 45%. Currently awake alert and oriented 3. No complaints of chest pain or worsening shortness of breath. Patient has been afebrile. No nausea or vomiting. NG tube has been discontinued. If the patient continues to tolerate trach collar he may get swallow evaluation and possible start on oral diet. Duboff tube could be placed temporarily. Patient is receiving blood pressure medications including Lasix. Patient is also on Eliquis due to acute pulmonary embolism. Patient is also on Ativan when necessary and Seroquel twice daily due to severe anxiety and was pulling tubes previously.. Laboratory data showed WBC 12.5 hemoglobin 9.4 and platelets 437, sodium 140 potassium 4.3 chloride 104 BUN 27 and creatinine 0.71 and calcium 9.3. Pulmonary and general surgery has seen the patient. Patient is being discharged to long-term acute care facility. - Exam -GENERAL: The patient with tracheostomy and on pressure support. Awake alert and oriented. Follows simple commands. HEENT: Pupils are round and equally reacting to light. EOMI. No scleral icterus. No conjunctival pallor. Normocephalic, atraumatic. No pharyngeal erythema. No thyromegaly. CARDIOVASCULAR: S1 and S2 present. No murmurs, rubs, or gallops. -PULMONARY: Chest is clear to auscultation, no wheezing, tachypnea ABDOMEN: Soft, nontender, nondistended, normoactive bowel sounds. No palpable organomegaly. Bilateral coarse breath sounds. Tracheostomy in place. EXTREMITIES: No cyanosis, clubbing, or pedal edema. NEUROLOGICAL: Gross neurological examination did not reveal any focal deficits. SKIN: No rashes. No petechiae Vital Signs - 8 hr 09/04/21 09/04/21 09/04/21 07:00 08:00 09:00 Temperature 98.4 F Pulse Rate 115 H 112 H 140 H Respiratory 29 H 32 H 36 H Rate Blood Pressure 139/91 105/90 146/91 O2 Sat by Pulse 94 L 95 95 Oximetry 09/04/21 09/04/21 09/04/21 10:00 11:00 12:00 Temperature 98.0 F Pulse Rate 156 H 122 H 130 H Respiratory 20 23 29 H Rate Blood Pressure 171/114 134/108 120/96 O2 Sat by Pulse 94 L 96 96 Oximetry 09/04/21 13:00 Temperature Pulse Rate Respiratory 22 Rate Blood Pressure 154/123 O2 Sat by Pulse 99 Oximetry Total time taken greater than 35 minutes including 18 minutes for counseling and coordination of care. Patient Condition at Discharge: Serious Plan - Discharge Summary Discharge Rx Participant: No New Discharge Prescriptions: New Albuterol Inhaler [Ventolin Hfa Inhaler] 2 puff INHALATION RT-QID PRN #1 unit PRN Reason: Shortness Of Breath Or Wheezing bisacodyL [Dulcolax] 10 mg RECTAL DAILY #7 supp Furosemide [Lasix] 40 mg PO DAILY #15 tablet amLODIPine [Norvasc] 5 mg PO BID #60 tab Pantoprazole Sodium [Protonix] 40 mg PO AC-BRKFST #30 tab Apixaban [Eliquis] 5 mg PO BID #60 tab hydrALAZINE HCL [Apresoline] 75 mg PO TID #90 tab LORazepam [Ativan] 1 mg PO TID PRN 3 Days #9 tab PRN Reason: Anxiety Metoprolol Tartrate [Lopressor] 50 mg PO BID #60 tab Sennosides-Docusate Sodium [Senokot-S] 1 each PO DAILY #30 tab QUEtiapine [SEROquel] 12.5 mg PO BID #15 tab Acetaminophen Tab [Tylenol] 650 mg PO Q4HR PRN tab PRN Reason: Fever And/ Or Pain Continue Cholecalciferol (Vitamin D3) [Vitamin D3 (3000 Iu)] 75 mcg PO DAILY Hydroxychloroquine Sulfate [Plaquenil] 200 mg PO DIRECTED Zinc 50 mg PO DAILY Ascorbic Acid [Vitamin C] 1,000 mg PO DAILY Discontinued Ibuprofen [Motrin Ib] 400 mg PO Q8H PRN PRN Reason: Fever Naproxen Sodium [Aleve] 220 mg PO Q12HR PRN PRN Reason: Fever Aspirin EC [Ecotrin] 325 mg PO DAILY Discharge Medication List Ascorbic Acid [Vitamin C] 1,000 mg PO DAILY 07/31/21 [History] Cholecalciferol (Vitamin D3) [Vitamin D3 (3000 Iu)] 75 mcg PO DAILY 07/31/21 [History] Hydroxychloroquine Sulfate [Plaquenil] 200 mg PO DIRECTED 07/31/21 [History] Zinc 50 mg PO DAILY 07/31/21 [History] Acetaminophen Tab [Tylenol] 650 mg PO Q4HR PRN tab 09/04/21 [Rx] Albuterol Inhaler [Ventolin Hfa Inhaler] 2 puff INHALATION RT-QID PRN #1 unit 09/04/21 [Rx] Apixaban [Eliquis] 5 mg PO BID #60 tab 09/04/21 [Rx] Furosemide [Lasix] 40 mg PO DAILY #15 tablet 09/04/21 [Rx] LORazepam [Ativan] 1 mg PO TID PRN 3 Days #9 tab 09/04/21 [Rx] Metoprolol Tartrate [Lopressor] 50 mg PO BID #60 tab 09/04/21 [Rx] Pantoprazole Sodium [Protonix] 40 mg PO AC-BRKFST #30 tab 09/04/21 [Rx] QUEtiapine [SEROquel] 12.5 mg PO BID #15 tab 09/04/21 [Rx] Sennosides-Docusate Sodium [Senokot-S] 1 each PO DAILY #30 tab 09/04/21 [Rx] amLODIPine [Norvasc] 5 mg PO BID #60 tab 09/04/21 [Rx] bisacodyL [Dulcolax] 10 mg RECTAL DAILY #7 supp 09/04/21 [Rx] hydrALAZINE HCL [Apresoline] 75 mg PO TID #90 tab 09/04/21 [Rx] Follow up Appointment(s)/Referral(s): None,Stated [Primary Care Provider] - 1-2 days
--- NOTE | 2021-09-04 14:29 | P.PN ---
Subjective Progress Note Date: 09/04/21 CHIEF COMPLAINT: COVID-19 pneumonia HISTORY OF PRESENT ILLNESS: Patient remains in the ICU on mechanical ventilation. Patient is currently trach collaring. [facility] His NG tube did come out. They're planning Dobbhoff [facility]. Afebrile. WBC 12.5 PHYSICAL EXAM: VITAL SIGNS: Reviewed. GENERAL: Well-developed in no acute distress. HEENT: No sclera icterus. Extraocular movements grossly intact. Moist buccal mucosa. Head is atraumatic, normocephalic. Tracheostomy site clean dry and intact ABDOMEN: Soft NEUROLOGIC: Awake ASSESSMENT: 1. Acute hypoxic respiratory failure due to COVID-19 pneumonia with prolonged mechanical intubation. Status post tracheostomy placement and revision 2. Severe protein calorie malnutrition PLAN: -Agree with [facility] to [facility] -Continue supportive care Physician Manager Welding note has been reviewed by physician. Signing provider agrees with the documented findings, assessment, and plan of care. Objective - Vital Signs Vital signs: Vital Signs Temp 98.0 F 09/04/21 12:00 Pulse 130 H 09/04/21 12:00 Resp 22 09/04/21 13:00 BP 154/123 09/04/21 13:00 Pulse Ox 99 09/04/21 13:00 Intake & Output 09/03/21 09/04/21 09/04/21 18:59 06:59 18:59 Intake Total 304.515 5299.822 211.040 Output Total 2965 830 970 Balance -2352.367 252.822 -758.960 Weight 102.6 kg 102.6 kg Intake: IV 260 220 140 Sodium Chloride 0.9% 1, 260 220 140 000 ml @ 20 mls/hr IV . Q24H [facility] Rx#:[id number] Intake, IV Titration 172.633 82.822 11.040 Amount Dexmedetomidine/0.9% NaCl 172.633 82.822 11.040 (Pmx) 400 mcg In Empty Bag 1 bag @ 0.2 MCG/KG/HR 5.71 mls/hr IV .[id number] [facility] Rx#:[id number] Tube Feeding 180 660 60 Other 120 Output: Urine 2965 830 970 Other: Voiding Method Indwelling Catheter Indwelling Catheter Indwelling Catheter ABP, PAP, CO, CI - Last Documented Arterial Blood Pressure 120/59 - Labs CBC & Chem 7: 09/04/21 05:04 09/04/21 05:04 Labs: Abnormal Lab Results - Last 24 Hours (Table) 09/03/21 09/04/21 09/04/21 Range/Units 18:03 00:04 05:04 WBC 12.5 H (3.8-10.6) k/uL RBC 3.32 L (4.30-5.90) m/uL Hgb 9.4 L (13.0-17.5) gm/dL Hct 31.0 L (39.0-53.0) % MCHC 30.3 L (31.0-37.0) g/dL RDW 18.2 H (11.5-15.5) % BUN (9-20) mg/dL Glucose (74-99) mg/dL POC Glucose (mg/dL) 129 H 107 H (75-99) mg/dL 09/04/21 09/04/21 09/04/21 Range/Units 05:04 05:59 12:04 WBC (3.8-10.6) k/uL RBC (4.30-5.90) m/uL Hgb (13.0-17.5) gm/dL Hct (39.0-53.0) % MCHC (31.0-37.0) g/dL RDW (11.5-15.5) % BUN 27 H (9-20) mg/dL Glucose 107 H (74-99) mg/dL POC Glucose (mg/dL) 111 H 111 H (75-99) mg/dL
[2021-09-04 15:30] VITALS: BP 155/106; PULSE 121; RESP 32
== END 2021-09-04 16:38 | disposition other institution (70) | DRG 3 ==
LOC: EC 01:50 → 4SSUR 04:18 → 2SICU 08-06 15:53
PROVIDERS: ADMIT Hospitalist; ATTEND Hospitalist
PROC: XW033E5 Introduction of Remdesivir Anti-infective into Peripheral Vein, Percutaneous Approach, New Technology Group 5 (ICD-10-PCS; 2021-07-31)
PROC: XW0DXM6 Introduction of Baricitinib into Mouth and Pharynx, External Approach, New Technology Group 6 (ICD-10-PCS; 2021-07-31)
PROC: 5A0935A Assistance with Respiratory Ventilation, Less than 24 Consecutive Hours, High Flow/Velocity Cannula (ICD-10-PCS; 2021-07-31)
PROC: 5A09357 Assistance with Respiratory Ventilation, Less than 24 Consecutive Hours, Continuous Positive Airway Pressure (ICD-10-PCS; 2021-08-01)
PROC: 0BH17EZ Insertion of Endotracheal Airway into Trachea, Via Natural or Artificial Opening (ICD-10-PCS; 2021-08-06)
PROC: 5A1955Z Respiratory Ventilation, Greater than 96 Consecutive Hours (ICD-10-PCS; 2021-08-07)
PROC: 02HV33Z Insertion of Infusion Device into Superior Vena Cava, Percutaneous Approach (ICD-10-PCS; 2021-08-07)
PROC: 03HY32Z Insertion of Monitoring Device into Upper Artery, Percutaneous Approach (ICD-10-PCS; 2021-08-07)
PROC: 4A133B1 Monitoring of Arterial Pressure, Peripheral, Percutaneous Approach (ICD-10-PCS; 2021-08-07)
PROC: 4A133J1 Monitoring of Arterial Pulse, Peripheral, Percutaneous Approach (ICD-10-PCS; 2021-08-07)
PROC: 0D9670Z Drainage of Stomach with Drainage Device, Via Natural or Artificial Opening (ICD-10-PCS; 2021-08-07)
PROC: 3E0336Z Introduction of Nutritional Substance into Peripheral Vein, Percutaneous Approach (ICD-10-PCS; 2021-08-07)
PROC: 0DJ08ZZ Inspection of Upper Intestinal Tract, Via Natural or Artificial Opening Endoscopic (ICD-10-PCS; 2021-08-14)
PROC: 0B113F4 Bypass Trachea to Cutaneous with Tracheostomy Device, Percutaneous Approach (ICD-10-PCS; principal; 2021-08-14 13:45)
PROC: 0BW10FZ Revision of Tracheostomy Device in Trachea, Open Approach (ICD-10-PCS; 2021-08-16)
PROC: 05HD33Z Insertion of Infusion Device into Right Cephalic Vein, Percutaneous Approach (ICD-10-PCS; 2021-08-19)
PROC: 0BW10FZ Revision of Tracheostomy Device in Trachea, Open Approach (ICD-10-PCS; 2021-08-28)
PROC: 0DJ08ZZ Inspection of Upper Intestinal Tract, Via Natural or Artificial Opening Endoscopic (ICD-10-PCS; 2021-09-04)
DX: U07.1 COVID-19 (principal); J12.82 Pneumonia due to coronavirus disease 2019; N17.0 Acute kidney failure with tubular necrosis; I26.99 Other pulmonary embolism without acute cor pulmonale; J80 Acute respiratory distress syndrome; E43 Unspecified severe protein-calorie malnutrition; A41.89 Other specified sepsis; Z68.43 Body mass index [BMI] 50.0-59.9, adult; E87.2 Acidosis; J95.01 Hemorrhage from tracheostomy stoma; E87.0 Hyperosmolality and hypernatremia; G72.81 Critical illness myopathy; G62.81 Critical illness polyneuropathy; A08.39 Other viral enteritis; J95.03 Malfunction of tracheostomy stoma; J93.82 Other air leak; J95.02 Infection of tracheostomy stoma; E66.01 Morbid (severe) obesity due to excess calories; R74.01 Elevation of levels of liver transaminase levels; I95.9 Hypotension, unspecified; E87.5 Hyperkalemia; N14.1 Nephropathy induced by other drugs, medicaments and biological substances; T50.8X5A Adverse effect of diagnostic agents, initial encounter; E86.1 Hypovolemia; N20.0 Calculus of kidney; R79.89 Other specified abnormal findings of blood chemistry; R74.02 Elevation of levels of lactic acid dehydrogenase [LDH]; R19.7 Diarrhea, unspecified; G47.33 Obstructive sleep apnea (adult) (pediatric); K80.20 Calculus of gallbladder without cholecystitis without obstruction; F41.9 Anxiety disorder, unspecified; E87.70 Fluid overload, unspecified; D64.9 Anemia, unspecified; R00.0 Tachycardia, unspecified; R74.8 Abnormal levels of other serum enzymes; I10 Essential (primary) hypertension; Z79.82 Long term (current) use of aspirin; Z79.1 Long term (current) use of non-steroidal anti-inflammatories (NSAID); Z79.899 Other long term (current) drug therapy; Z79.01 Long term (current) use of anticoagulants; Z82.49 Family history of ischemic heart disease and other diseases of the circulatory system; Z86.711 Personal history of pulmonary embolism; Z79.2 Long term (current) use of antibiotics; Z79.52 Long term (current) use of systemic steroids
CPT/HCPCS: 36410; 36415; 36573; 36600; 43235; 71045; 71275; 74018; 76937; 80048; 80053; 81001; 82272; 82550; 82728; 82805; 83605; 83615; 83735; 84132; 84145; 84478; 85025; 85027; 85379; 85610; 85730; 86140; 86850; 86900; 86901; 86920; 87040; 87070; 87205; 87324; 87635; 93005; 93970; 94002; 94003; 94640; 94660; 94760; 96361; 96374; 96375; 99291